=== PATIENT | male | born 1985 | race Caucasian/White ===

== ENCOUNTER → 2016-06-06 | Outpatient (CLI) | payer OTHER ==
[~2016-06-06] MED LIST: AMIO200T PO; AMIO400T5 PO; DIGO250T PO; DIGO250T15 PO; DILT120C54 PO; DILT240C86 PO; ENAL2.5T PO; ENLP2.5T PO; MTP50T PO; WARF2TAB PO; Warfarin Sod PO
--- OUTSIDE RECORDS SUMMARY | 2016-06-06 07:23 | XMS REPORT | Continuity of Care Document ---
Author Author [facility] Organization [facility] Address Unknown Phone Unavailable Care Team Providers Care Lead Generation Representative Name Role Phone Self, Referral PCP Unavailable Source Comments Some departments are not documenting in the electronic medical record. If you do not see the information that you expected, contact Release of Information in the Health Information Management department at [phone] for further assistance in locating additional records.[facility] Active Allergies and Adverse Reactions Allergen Noted Date Severity Reactions Comments Pcn 06/06/2011 RASH Current Medications Prescription Sig. Disp. Refills Start End Date Status Date enalapril (VASOTEC) 2.5 Take 2.5 mg by mouth Active mg tablet daily. metoprolol (LOPRESSOR) 50 Take 50 mg by mouth twice Active mg tablet daily. warfarin (COUMADIN) 2 mg Take 2 mg by mouth daily. Active tablet diltiazem CD (CARDIZEM Take 1 Cap by mouth 90 Cap 3 11/27/19 Active CD) 180 mg capsule daily. 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 Goldstein Atrial flutter ([facility]) 06/06/2011 Chronic headaches 06/06/2011 Atrial fibrillation ([facility]) 06/05/2011 Overview: 3-2011 Multiple runs of AF, up to a few hours duration by 45hr holter. 09/20/2013 - ECHO: LVEF ~ 25%. LA size=3.7 cm. Four chamber dilation with severe cardiomyopathy. LA dilation with no clot / thrombus, Severe TVR, mild MVR. Estimated PAP ~ 35mmHg. 09/21/2013 - Unsuccessful DCCV to maintain NSR. ([facility]) 11/13/2013 - CHIQUIS + DCCV: Cardioversion to restore NSR. ([facility]). Ventricular tachycardia (paroxysmal) (HCC) 06/05/2011 Overview: 05/19- 45Hr Holter: SR, Afib & VT. Ave HR 83bpm, ITO=207 & min 33bpm. One 2 sec pause. Wide beats: 641, 0.3%. Wide pairs: 2;wide runs:25. Longest VT up to 13 beats ( wide beats). Multiple episodes of Afib, up to a few hours duration per Dr Goldstein. 05/25/11 Ex Echo stress test ( Via [place], [place]) 10.1 METS, 93% of predicted MR reached. No significant arrhythmia or ischemia noted. EF 6-%, no abnormalities with stress. 2D echo: EF 60%. LA 3.4cm. RA, RV size normal. MIld MR & TR. AoV w/o stenosis or regurg. PAP est at 30mmHg. Social History Tobacco Use Types Packs/Day Years Used Date Never Smoker Alcohol Use Drinks/Week oz/Week Comments No Last Filed Vital Signs Vital Sign Reading Time Taken Blood Pressure 130/82 11/26/2013 1:19 PM CDT Pulse 68 11/26/2013 1:19 PM CDT Temperature - - Respiratory Rate - - Height 1.613 m (5' 3.5") 11/26/2013 1:19 PM CDT Weight 89.631 kg (197 lb 9.6 oz) 11/26/2013 1:19 PM CDT Body Mass Index 34.45 11/26/2013 1:19 PM CDT Oxygen Saturation 98% 10/28/2013 2:34 PM CDT Plan of Care Health Maintenance Due Date Last Done Comments Physical (Comprehensive) 1993 Exam Pertussis Vaccine 1997 Tetanus Vaccine 2003 Influenza Vaccine 11/18/2014 Results from Last 3 Months Not on file
--- NOTE | 2016-06-08 09:48 | ECHOCARDIOGRAPHY REPORT ---
PROCEDURE PHYSICIAN: CHINA MURPHY DATE OF PROCEDURE: 06/06/2016 TWO DIMENSIONAL ECHOCARDIOGRAM REPORT PRIMARY PHYSICIAN: OTHER PHYSICIAN: REFERRING PHYSICIAN: Winter Mayen APRN ORDERING PHYSICIAN: INDICATION FOR THE PROCEDURE: [facility]. MEASUREMENTS DERIVED VALUES LV DIAMETER (LAX) NORMALS NORMALS Diastolic 4.5 (3.6-5.2) Eject. Fract. 50% (60%+/-6%) Systolic (2.3-3.9) Diastolic Vol. % Shortening (0.22-0.42) Systolic Vol. Aortic Root IVS THICKNESS Diastolic 1 (0.6-1.1) LVPW THICKNESS Diastolic 1 (0.6-1.1) LA DIAMETER Systolic 4.8 (2.1-3.7) FINDINGS: 1. Technically difficult study. 2. The left ventricle is normal in size. Endocardium was not well visualized in all segments. Overall systolic function appeared to be normal. Estimated ejection fraction 50%. 3. The left atrium is dilated. No clot or thrombus were seen within the left atrium. 4. The right atrium and right ventricle are normal in size. No clot or thrombus were seen within the right side. 5. Mitral valve is normal in morphology with mild mitral regurgitation noted by color Doppler flow. No mitral valve prolapse. No mitral valve stenosis. 6. Aortic valve leaflets were not well visualized. No significant aortic stenosis or regurgitation was seen. 7. Tricuspid valve is normal in morphology with mild tricuspid regurgitation noted by color Doppler flow. Doppler across tricuspid valve estimated pulmonary artery pressure of 21+ right atrial pressure. 8. Pulmonic valve is functioning normally. 9. No pericardial effusion. IN CONCLUSION: 1. Normal left ventricular size. Endocardium was not well visualized in all segments. Estimated ejection fraction 50%. 2. Left atrium is dilated. 3. Mild mitral and tricuspid regurgitation. 4. Estimated pulmonary artery pressure 30 mmHg. Job ID: [id number] Dictated Date: 06/07/2016 16:09:36 Lithographic Photographer Apprentice Date: 06/08/2016 09:43:22 / lacy
== END ==
LOC: CARD 07:20
PROVIDERS: ATTEND Internal Medicine Cardiovascular Disease
DX: I48.91 Unspecified atrial fibrillation (principal)
CPT/HCPCS: 93306

== ENCOUNTER 2017-03-31 06:57 | Emergency (ER) | payer OTHER ==
[~2017-03-31] VITALS: Ht 162.6 cm; Wt 90.0 kg
[2017-03-31] MEDS ORDERED: CATHETER FLUSH 10 ML SYR IV ONE (07:01)
[2017-03-31] MEDS ORDERED: EPINEPHrine INJECTION 1 MG/ML AMP IV ONE (07:01)
[2017-03-31] MEDS ORDERED: SUCCINYLCHOLINE INJ 100 MG/5 ML SYR INJ ONE (07:01)
--- OUTSIDE RECORDS SUMMARY | 2017-03-31 07:04 | XMS REPORT ---
Author Author KAIR AMADOR Organization [employer] Address Unknown Phone Unavailable Care Team Providers Care Sheep Boner Name Role Phone KARI AMADOR CP Unavailable Allergies No Known Allergies Problems Problem Type Condition Code Onset Dates Condition Status Problem Cough 786.2 Active Problem Atrial fibrillation 427.31 Active Problem Esophageal reflux 530.81 Active Problem Abdominal pain, epigastric 789.06 Active Problem Abdominal pain, unspecified site 789.00 Active Problem Hypertension I10 Active Problem Palpitations 785.1 Active Problem Intestinal infection due to other organism, NEC 008.8 Active Problem Unspecified hypotension 458.9 Active Problem Congestive heart failure, unspecified 428.0 Active Assessment [facility] (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.01 Active Problem Influenza with other respiratory manifestations 487.1 Active Problem Encounter for long-term (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 V58.61 Active Problem Diarrhea 787.91 Active Medications No Known Medications Results No Known Results Summary Purpose [employer] Submission
--- OUTSIDE RECORDS SUMMARY | 2017-03-31 07:04 | XMS REPORT | Clinical Summary ---
Author Author [facility] Organization [facility] Address Unknown Phone Unavailable Care Team Providers Care Chemistry Quality Control Technician Name Role Phone PCP Unavailable Source Comments Some departments are not documenting in the electronic medical record. If you do not see the information that you expected, contact Release of Information in the Health Information Management department at [phone] for further assistance in locating additional records.[facility] Allergies Active Allergy Reactions Severity Noted Date Comments Penicillins RASH 06/06/2011 Current Medications Prescription Sig. Disp. 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 Goldstein Atrial flutter ([facility]) 06/06/2011 Chronic headaches 06/06/2011 Atrial fibrillation ([facility]) 06/05/2011 Overview: 3-2011 Multiple runs of AF, up to a few hours duration by 45hr holter. 09/20/2013 - ECHO: LVEF ~ 25%. LA size=3.7 cm. Four chamber dilation with severe cardiomyopathy. LA dilation with no clot / thrombus, Severe TVR, mild MVR. Estimated PAP ~ 35mmHg. 09/21/2013 - Unsuccessful DCCV to maintain NSR. ([facility]) 11/13/2013 - CHIQUIS + DCCV: Cardioversion to restore NSR. ([facility]). Ventricular tachycardia (paroxysmal) (HCC) 06/05/2011 Overview: 05/19- 45Hr Holter: SR, Afib & VT. Ave HR 83bpm, NBZ=123 & min 33bpm. One 2 sec pause. Wide beats: 641, 0.3%. Wide pairs: 2;wide runs:25. Longest VT up to 13 beats ( wide beats). Multiple episodes of Afib, up to a few hours duration per Dr Goldstein. 05/25/11 Ex Echo stress test ( Via [place], [place]) 10.1 METS, 93% of predicted MR reached. No significant arrhythmia or ischemia noted. EF 6-%, no abnormalities with stress. 2D echo: EF 60%. LA 3.4cm. RA, RV size normal. MIld MR & TR. AoV w/o stenosis or regurg. PAP est at 30mmHg. Family History Medical History Relation Name Comments Hypertension Father Relation Name Status Comments Father Alive Mother Alive Social History Tobacco Use Types Packs/Day Years Used Date Never Smoker Alcohol Use Drinks/Week oz/Week Comments No Sex Assigned at Date Recorded Not on file Last Filed Vital Signs Vital Sign Reading Time Taken Blood Pressure 130/82 11/26/2013 1:19 PM CDT Pulse 68 11/26/2013 1:19 PM CDT Temperature - - Respiratory Rate - - Oxygen Saturation 98% 10/28/2013 2:34 PM CDT Inhaled Oxygen - - Concentration Weight 89.6 kg (197 lb 9.6 oz) 11/26/2013 1:19 PM CDT Height 161.3 cm (5' 3.5") 11/26/2013 1:19 PM CDT Body Mass Index 34.45 11/26/2013 1:19 PM CDT Plan of Treatment Health Maintenance Due Date Last Done Comments PHYSICAL (COMPREHENSIVE) 1993 EXAM PERTUSSIS VACCINE 1997 TETANUS VACCINE 2003 INFLUENZA VACCINE 10/18/2016 Results Not on filefrom Last 3 Months
--- OUTSIDE RECORDS SUMMARY | 2017-03-31 07:04 | XMS REPORT ---
Author Author KARI AMADOR Organization [employer] Address Unknown Phone Unavailable Care Team Providers Care Copyright Manager Name Role Phone KARI AMADOR CP Unavailable Allergies No Known Allergies Problems Problem Type Condition ICD-9 Code Onset Dates Condition Status Problem Diarrhea 787.91 Active Problem Esophageal reflux 530.81 Active Problem Cough 786.2 Active Problem Abdominal pain, unspecified site 789.00 Active Problem Unspecified hypotension 458.9 Active Problem Abdominal pain, epigastric 789.06 Active Problem Intestinal infection due to other organism, NEC 008.8 Active Problem Atrial fibrillation 427.31 Active Problem Congestive heart failure, unspecified 428.0 Active Problem Palpitations 785.1 Active Assessment Encounter for long-term (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 V58.61 Active Problem Influenza with other respiratory manifestations 487.1 Active Problem Encounter for long-term (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 V58.61 Active Medications No Known Medications Procedures Procedure Coding System Code Date PROTHROMBIN TIME CPT-4 40492 Nov 06, 2014 Results Name Result Date Reference Range Unit Abnormality Flag INR (IN HOUSE) Summary Purpose [employer] Submission
--- OUTSIDE RECORDS SUMMARY | 2017-03-31 07:05 | XMS REPORT ---
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
--- OUTSIDE RECORDS SUMMARY | 2017-03-31 07:05 | XMS REPORT ---
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
--- OUTSIDE RECORDS SUMMARY | 2017-03-31 07:05 | XMS REPORT ---
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 diff Medical History Stress test performed; EF 25% Last test 2015 was at 60% Medical History Palpitations Hospitalization History [facility] for [facility]ib 09/2013
--- OUTSIDE RECORDS SUMMARY | 2017-03-31 07:05 | XMS REPORT ---
Author LINUS Bacon [facility] [employer] Address Unknown Phone Unavailable Care Team Providers Care Ordinary Seaman Name Role Phone LINUS BURGOS Unavailable Allergies, Adverse Reactions, Alerts Substance Reaction Event Type Penicillin V Potassium Info Not Available Drug Allergy Problems Problem Type Condition Code Onset Dates Condition Status Problem Diarrhea 787.91 Active Problem Esophageal reflux 530.81 Active Problem Cough 786.2 Active Problem Abdominal pain, unspecified site 789.00 Active Problem Unspecified hypotension 458.9 Active Problem Abdominal pain, epigastric 789.06 Active Problem Intestinal infection due to other organism, NEC 008.8 Active Problem Atrial fibrillation 427.31 Active Problem Congestive heart failure, unspecified 428.0 Active Problem Palpitations 785.1 Active Assessment Chest wall muscle strain S29.011A Active Problem Influenza with other respiratory manifestations 487.1 Active Problem Encounter for long-term (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 V58.61 Active Medications Medication Code System Code Instructions Start Date End Date Status Dosage Digox [facility] [address]-66 250 MCG Orally Once a day July 28, 2014 1 tablet Coumadin [facility] [address]-80 2 MG every day except Monday and Wednesday October 09, 2013 take 1 tablet (2 mg) by oral route once daily Cardizem CD [facility] [address]-43 240 MG Feb 10, 2014 take 1 capsule by Oral route 1 time per day Metoprolol Tartrate [facility] [address]-77 50 mg October 09, 2013 take 1 tablet (50 mg) by oral route 2 times per day with meals Enalapril Maleate [facility] [address]-75 2.5 mg Mar 21, 2014 take 1 tablet (2.5 mg) by oral route once daily Warfarin Sodium [facility] [address]-43 2 MG Orally Once a day 1 tablet Coumadin [facility] [address]-42 4 MG Orally Monday and Monday and 1 tablet the rest of the days. 2 tablet Cyclobenzaprine HCl [facility] [address]-10 10 MG Orally Three times a day DecJan 19, 2015 1 tablet Metronidazole [facility] [address]-15 500 mg Apr 20, 2012 1 tablet by Oral route 2 times per day for 14 days Procedures Procedure Coding System Code Date Office Visit, Est Pt., Level 3 CPT-4 03701 Dec 20, 2014 Vital Signs Date/Time: Dec 20, 2014 Temperature 96.5 F Weight 201.3 lbs Height 64 in BMI 34.55 Index Blood Pressure Diastolic 82 mmHg Blood Pressure Systolic 108 mmHg Cardiac Monitoring Heart Rate 96 bpm Results No Known Results Summary Purpose [employer]Works Submission
--- OUTSIDE RECORDS SUMMARY | 2017-03-31 07:05 | XMS REPORT ---
Author Author KARI AMADOR [facility] [employer] Address Unknown Phone Unavailable Care Team Providers Care Plastic Boat Patcher Name Role Phone KARI AMADOR CP Unavailable [...] Congestive heart failure, unspecified 428.0 Active Assessment Encounter for long-term (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 V58.61 Active Problem Influenza with other respiratory manifestations 487.1 Active Problem Encounter for long-term (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 V58.61 Active Problem Diarrhea 787.91 Active Medications Medication Code System Code Instructions Start Date End Date Status Dosage Warfarin Sodium [facility] [address]-34 3 MG Orally Once a day 1 tablet War[address] Sodium [facility] [address]-45 2 MG Orally Once a day 1 tablet M, W, F Results No Known Results Summary Purpose [employer] Submission
--- OUTSIDE RECORDS SUMMARY | 2017-03-31 07:05 | XMS REPORT ---
Author Author KARI AMADOR Organization [employer] Address Unknown Phone Unavailable Care Team Providers Care Table Setter Name Role Phone KARI AMAODR CP Unavailable Allergies No Known Allergies Problems [...] Congestive heart failure, unspecified 428.0 Active Assessment skilled nursing (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.01 Active Problem Influenza with other respiratory manifestations 487.1 Active Problem Encounter for long-term (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 V58.61 Active Assessment Encounter for therapeutic drug level monitoring Z51.81 Active Problem Diarrhea 787.91 Active Medications No Known Medications Procedures Procedure Coding System Code Date PROTHROMBIN TIME CPT-4 31609 Mar 24, 2015 Results Name Result Date Reference Range Unit Abnormality Flag INR (IN HOUSE) ----Exp date 20150324 ----INR 3.1 20150324 1.10 - 3.30 ----PREVIOUS INR 2.1 20150324 ----CURRENT COUMADIN DOSE 2mg M,W,F 4mg T,Th,Sat,Sun [id number] ----Lot # [id number] Summary Purpose [employer] Submission
--- OUTSIDE RECORDS SUMMARY | 2017-03-31 07:05 | XMS REPORT ---
Author Author KARI AMADOR Organization [employer] Address Unknown Phone Unavailable Care Team Providers Care Indigo Mixer Name Role Phone KARI AMADOR CP Unavailable [...] Congestive heart failure, unspecified 428.0 Active Problem Influenza with other respiratory manifestations 487.1 Active Problem Encounter for long-term (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 V58.61 Active Problem Diarrhea 787.91 Active Medications No Known Medications Results No Known Results Summary Purpose [employer] Submission
--- OUTSIDE RECORDS SUMMARY | 2017-03-31 07:05 | XMS REPORT ---
Author Author KARI AMADOR Organization [employer] Address Unknown Phone Unavailable Care Team Providers Care Hog Raiser Name Role Phone KARI AMADOR CP Unavailable [...] Congestive heart failure, unspecified 428.0 Active Assessment snf (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.01 Active Problem Influenza with other respiratory manifestations 487.1 Active Problem Encounter for long-term (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 V58.61 Active Problem Diarrhea 787.91 Active Medications No Known Medications Results No Known Results Summary Purpose [employer] Submission
--- OUTSIDE RECORDS SUMMARY | 2017-03-31 07:05 | XMS REPORT ---
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 diff Medical History Stress test performed; EF 25% Last test 2016 was at 60% Medical History Palpitations Hospitalization History [facility] for [facility]ib 09/2013
--- OUTSIDE RECORDS SUMMARY | 2017-03-31 07:05 | XMS REPORT ---
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 diff Medical History Stress test performed; EF 25% Last test 2015 was at 60% Medical History Palpitations Hospitalization History [facility] for Afib 09/2013
--- OUTSIDE RECORDS SUMMARY | 2017-03-31 07:05 | XMS REPORT ---
Author Author KARI AMADOR [facility] eClinicalWorks Address Unknown Phone Unavailable Care Team Providers Care Medical Pathologist Name Role Phone KARI AMADOR CP Unavailable [...]
--- OUTSIDE RECORDS SUMMARY | 2017-03-31 07:05 | XMS REPORT ---
Author Author KARI AMADOR [facility] [employer]Works Address Unknown Phone Unavailable Care Team Providers Care Offset Plate Maker Name Role Phone KARI AMADOR CP Unavailable [...]
--- OUTSIDE RECORDS SUMMARY | 2017-03-31 07:05 | XMS REPORT ---
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 diff Medical History Stress test performed; EF 25% Last test 2016 was at 60% Medical History Palpitations Hospitalization History [facility] for Afib 09/2013
--- OUTSIDE RECORDS SUMMARY | 2017-03-31 07:05 | XMS REPORT ---
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
--- OUTSIDE RECORDS SUMMARY | 2017-03-31 07:05 | XMS REPORT ---
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 diff Medical History Stress test performed; EF 25% Last test 2015 was at 60% Medical History Palpitations Hospitalization History [facility] for [facility]ib 09/2013
--- OUTSIDE RECORDS SUMMARY | 2017-03-31 07:06 | XMS REPORT ---
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
--- OUTSIDE RECORDS SUMMARY | 2017-03-31 07:06 | XMS REPORT ---
Author Author KARI AMADOR Organization [employer] Address Unknown Phone Unavailable Care Team Providers Care Engineering Scientist Name Role Phone KARI AMADOR CP Unavailable [...] Congestive heart failure, unspecified 428.0 Active Assessment senior care (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.01 Active Problem Influenza with other respiratory manifestations 487.1 Active Problem Encounter for long-term (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 V58.61 Active Problem Diarrhea 787.91 Active Medications No Known Medications Procedures Procedure Coding System Code Date PROTHROMBIN TIME CPT-4 26467 July 14, 2015 Results Name Result Date Reference Range Unit Abnormality Flag INR (IN HOUSE) ----Exp date [id number] ----INR 2.3 [id number] 1.10 - 3.30 ----PREVIOUS INR 2.6 20150714 ----CURRENT COUMADIN DOSE 2mgM,W,F 3mg TuThFSatSu [id number] ----Lot # [id number] Summary Purpose eClinicalWorks Submission
--- OUTSIDE RECORDS SUMMARY | 2017-03-31 07:06 | XMS REPORT ---
Author Author KARI AMADOR [facility] eClinicalWorks Address Unknown Phone Unavailable Care Team Providers Care Soda Jerker Name Role Phone KARI AMADOR Unavailable Allergies, Adverse Reactions, Alerts Substance Reaction Event Type Penicillin V Potassium Info Not Available Drug Allergy Problems Problem Type Condition ICD-9 Code Onset [...] 428.0 Active Problem Palpitations 785.1 Active Assessment Atrial fibrillation 427.31 Active Problem Influenza with other respiratory manifestations 487.1 Active Problem Encounter for long-term (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 V58.61 Active Medications Medication Code System Code Instructions Start Date End Date Status Dosage Enalapril Maleate [facility] [address]-52 2.5 mg Mar 21, 2014 take 1 tablet (2.5 mg) by oral route once daily Coumadin [facility] [address]-23 2 MG every day except Monday and Wednesday October 09, 2013 take 1 tablet (2 mg) by oral route once daily Cardizem CD [facility] [address]-63 240 MG Feb 10, 2014 take 1 capsule by Oral route 1 time per day Coumadin [facility] [address]-10 4 MG Orally Monday and Monday 1 tablet Metoprolol Tartrate [facility] [address]-78 50 mg October 09, 2013 take 1 tablet (50 mg) by oral route 2 times per day with meals Digox [facility] [address]-97 250 MCG Orally Once a day July 28, 2014 1 tablet Procedures Procedure Coding System Code Date Office Visit, Est Pt., Level 3 CPT-4 96310 Nov 27, 2014 Vital Signs Date/Time: Nov 27, 2014 Temperature 98.2 F Weight 198.2 lbs Height 64 in BMI 34.02 Index Blood Pressure Diastolic 76 mmHg Blood Pressure Systolic 118 mmHg Cardiac Monitoring Heart Rate 72 bpm Results No Known Results Summary Purpose eClinicalWorks Submission
--- OUTSIDE RECORDS SUMMARY | 2017-03-31 07:06 | XMS REPORT ---
Author Author CHINA MURPHY Organization eClinicalWorks Address Unknown Phone Unavailable Care Team Providers Care Recordist Chief Name Role Phone CHINA MURPHY CP Unavailable Allergies, Adverse Reactions, Alerts Substance Reaction [...] Date End Date Status Dosage Warfarin Sodium [facility] [address]-76 2 MG Orally Once a day 1 tablet T,W, TH, F, Sa, Sun Metoprolol Tartrate [facility] [address]-86 50 mg October 09, 2013 take 1 tablet (50 mg) by oral route 2 times per day with meals Digox [facility] [address]-37 250 MCG Orally Once a day July 28, 2014 1 tablet Cardizem CD [facility] [address]-57 240 MG Feb 10, 2014 take 1 capsule by Oral route 1 time per day Enalapril Maleate [facility] [address]-54 2.5 mg Mar 21, 2014 take 1 tablet (2.5 mg) by oral route once daily Coumadin [facility] [address]-01 4 MG TAKE TWO TABLETS BY MOUTH ON MONDAY AND MONDAY AND ONE TABLET ON ALL OTHER DAYS OF THE WEEK Procedures Procedure Coding System Code Date Office Visit, Est Pt., Level 4 CPT-4 77750 Feb 06, 2015 ELECTROCARDIOGRAM, TRACING CPT-4 28424 Feb 06, 2015 Vital Signs Date/Time: Feb 06, 2015 Temperature 98.6 F Weight 201.1 lbs Height 64 in BMI 34.51 Index Blood Pressure Diastolic 62 mmHg Blood Pressure Systolic 116 mmHg Cardiac Monitoring Heart Rate 74 bpm Results Name Result Date Reference Range Unit Abnormality Flag EKG, TRACING (IN-HOUSE) Summary Purpose eClinicalWorks Submission
--- OUTSIDE RECORDS SUMMARY | 2017-03-31 07:06 | XMS REPORT ---
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 70 Active RESULTS No Results PROCEDURES No Known procedures IMMUNIZATIONS No Known Immunizations MEDICAL (GENERAL) HISTORY Type Description Date Medical History Atrial fibrillation Medical History hx of c. diff Medical History Stress test performed; EF 25% Last test 2016 was at 60% Medical History Palpitations Hospitalization History [facility] for [facility]ib 09/2013
--- OUTSIDE RECORDS SUMMARY | 2017-03-31 07:06 | XMS REPORT ---
Author Author KARI AMADOR 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
--- OUTSIDE RECORDS SUMMARY | 2017-03-31 07:06 | XMS REPORT ---
Author Author KARI AMADOR Organization [employer] Address Unknown Phone Unavailable Care Team Providers Care Mold Presser Name Role Phone KARI AMADOR CP Unavailable [...] Congestive heart failure, unspecified 428.0 Active Assessment custodial (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.01 Active Problem Influenza with other respiratory manifestations 487.1 Active Problem Encounter for long-term (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 V58.61 Active Problem Diarrhea 787.91 Active Medications No Known Medications Results No Known Results Summary Purpose eClinicalWorks Submission
--- OUTSIDE RECORDS SUMMARY | 2017-03-31 07:06 | XMS REPORT ---
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
--- OUTSIDE RECORDS SUMMARY | 2017-03-31 07:06 | XMS REPORT ---
Author Author KARI AMADOR Organization eClinicalWorks Address Unknown Phone Unavailable Care Team Providers Care Health And Fitness Instructor Name Role Phone KARI AMADOR CP Unavailable [...] 785.1 Active Assessment Atrial fibrillation 427.31 Active Assessment Encounter for long-term (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 V58.61 Active Problem Influenza with other respiratory manifestations 487.1 Active Problem Encounter for long-term (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 V58.61 Active Medications No Known Medications Procedures Procedure Coding System Code Date PROTHROMBIN TIME CPT-4 99725 Jan 15, 2015 Results Name Result Date Reference Range Unit Abnormality Flag INR (IN HOUSE) Summary Purpose eClinicalWorks Submission
--- OUTSIDE RECORDS SUMMARY | 2017-03-31 07:06 | XMS REPORT ---
Author Author KARI AMADOR [facility] eClinicalWorks Address Unknown Phone Unavailable Care Team Providers Care Product Introduction Manager Name Role Phone KARI AMADOR CP [...] Medications Procedures Procedure Coding System Code Date VENIPUNCT, ROUTINE* CPT-4 15163 Mar 10, 2015 PROTHROMBIN TIME CPT-4 38391 Mar 10, 2015 Results Name Result Date Reference Range Unit Abnormality Flag ROUTINE VENIPUNCTURE Summary Purpose eClinicalWorks Submission
--- OUTSIDE RECORDS SUMMARY | 2017-03-31 07:06 | XMS REPORT ---
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
--- OUTSIDE RECORDS SUMMARY | 2017-03-31 07:06 | XMS REPORT ---
Author Author KARI AMADOR Organization eClinicalWorks Address Unknown Phone Unavailable Care Team Providers Care Appliance Painter And Refinisher Name Role Phone KARI AMADOR CP Unavailable [...] Coding System Code Date PROTHROMBIN TIME CPT-4 96349 Dec 09, 2014 Results No Known Results Summary Purpose eClinicalWorks Submission
--- OUTSIDE RECORDS SUMMARY | 2017-03-31 07:06 | XMS REPORT ---
Author Author KARI AMADOR Organization [employer] Address Unknown Phone Unavailable Care Team Providers Care Solid Waste Manager Name Role Phone KARI AMADOR CP [...] failure, unspecified 428.0 Active Assessment Encounter for therapeutic drug level monitoring Z51.81 Active Problem Influenza with other respiratory manifestations 487.1 Active Problem Encounter for long-term (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 V58.61 Active Problem Diarrhea 787.91 Active Medications No Known Medications Procedures Procedure Coding System Code Date VENIPUNCT, ROUTINE* CPT-4 34785 Mar 02, 2015 PROTHROMBIN TIME CPT-4 95006 Mar 02, 2015 Results Name Result Date Reference Range Unit Abnormality Flag ROUTINE VENIPUNCTURE PT/INR ----Prothrombin Time 14.5 [id number] 9.1-12.0 sec H ----INR 1.3 [id number] 0.8-1.2 H Summary Purpose eClinicalWorks Submission
--- OUTSIDE RECORDS SUMMARY | 2017-03-31 07:07 | XMS REPORT ---
Author Author KARI AMADOR Organization [employer] Address Unknown Phone Unavailable Care Team Providers Care Noodle Catalyst Maker Name Role Phone KARI AMADOR CP [...] Congestive heart failure, unspecified 428.0 Active Assessment nursing home (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.01 Active Problem Influenza with other respiratory manifestations 487.1 Active Problem Encounter for long-term (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 V58.61 Active Assessment Encounter for therapeutic drug level monitoring Z51.81 Active Problem Diarrhea 787.91 Active Medications No Known Medications Results No Known Results Summary Purpose eClinicalWorks Submission
--- OUTSIDE RECORDS SUMMARY | 2017-03-31 07:07 | XMS REPORT | Continuity of Care Document ---
Author Author [facility] [place] Address Unknown Phone Unavailable Allergies Active Description Code Type Severity Reaction Onset Reported/Identified Relationship to Patient Clinical Status Yes penicillin V potassium Drug Allergy 07/21/2010 Yes penicillin V potassium Drug Allergy N/A N/A 07/21/2010 Yes Penicillins [id number] Drug Allergy Unknown N/A 09/19/2013 Medications There is no data. Problems Date Dx Coded Attending Type Code Diagnosis Diagnosed By 07/21/2010 STEVE SANTANA, BROOK 486 PNEUMONIA UNSPECIFIED 07/21/2010 STEVE SANTANA, BROOK 486 PNEUMONIA UNSPECIFIED 07/21/2010 486 PNEUMONIA UNSPECIFIED 07/21/2010 ISABELLE FRANCIS DO 486 PNEUMONIA UNSPECIFIED 07/21/2010 SIDDHARTH SANTANA, CHERI N 486 PNEUMONIA UNSPECIFIED 07/21/2010 MADL CEMENT MASON MAINTENANCE, KARI L 486 PNEUMONIA UNSPECIFIED 07/21/2010 MADL CEMENT MASON MAINTENANCE, KARI L 486 PNEUMONIA UNSPECIFIED 07/21/2010 MADL CEMENT MASON MAINTENANCE, KARI L 486 PNEUMONIA UNSPECIFIED 07/21/2010 ISABELLE FRANCIS DO K 486 PNEUMONIA UNSPECIFIED 07/21/2010 JEFFREY SANTANA, CHINA 486 PNEUMONIA UNSPECIFIED 07/21/2010 MADL CEMENT MASON MAINTENANCE, KARI L 486 PNEUMONIA UNSPECIFIED 07/21/2010 MADL CEMENT MASON MAINTENANCE, KARI L 486 PNEUMONIA UNSPECIFIED 07/21/2010 MADL CEMENT MASON MAINTENANCE, KARI L 486 PNEUMONIA UNSPECIFIED 07/21/2010 MADL CEMENT MASON MAINTENANCE, KARI L 486 PNEUMONIA UNSPECIFIED 07/21/2010 MADL CEMENT MASON MAINTENANCE, KARI L 486 PNEUMONIA UNSPECIFIED 07/21/2010 JEFFREY SANTANA, [place] 486 PNEUMONIA UNSPECIFIED 07/21/2010 MADL CEMENT [employer]ON MAINTENANCE, KARI L 486 PNEUMONIA UNSPECIFIED 04/17/2011 Ot 787.03 VOMITING ALONE 04/17/2011 Ot 787.91 DIARRHEA 08/17/2011 Ot 427.31 ATRIAL FIBRILLATION 08/17/2011 Ot 785.1 PALPITATIONS 04/20/2012 BROOK WILSON MD 789.06 abdominal pain in the central upper belly (epigastric) 04/20/2012 BROOK WILSON MD 789.06 abdominal pain in the central upper belly (epigastric) 04/20/2012 789.06 abdominal pain in the central upper belly (epigastric) 04/20/2012 ISABELLE FRANCIS DO K 789.06 abdominal pain in the central upper belly (epigastric) 04/20/2012 CHERI MESSINA MD 789.06 abdominal pain in the central upper belly (epigastric) 04/20/2012 MARJORIE CEMENT MASON MAINTENANCE, KARI L 789.06 abdominal pain in the central upper belly (epigastric) 04/20/2012 MARJORIE CEMENT MASON MAINTENANCE, KARI L 789.06 abdominal pain in the central upper belly (epigastric) 04/20/2012 MARJORIE CEMENT MASON MAINTENANCE, KARI L 789.06 abdominal pain in the central upper belly (epigastric) 04/20/2012 ISABELLE FRANCIS DO K 789.06 abdominal pain in the central upper belly (epigastric) 04/20/2012 CHINA GOLDSTEIN MD 789.06 abdominal pain in the central upper belly (epigastric) 04/20/2012 MARJORIE HIGGINBOTHAM KARI L 789.06 abdominal pain in the central upper belly (epigastric) 04/20/2012 MARJORIE CEMENT MASON MAINTENANCE, KARI L 789.06 abdominal pain in the central upper belly (epigastric) 04/20/2012 MARJORIE HIGGINBOTHAM KARI L 789.06 abdominal pain in the central upper belly (epigastric) 04/20/2012 MARJORIE CEMENT MASON MAINTENANCE, KARI L 789.06 abdominal pain in the central upper belly (epigastric) 04/20/2012 MARJORIE HIGGINBOTHAM KARI L 789.06 abdominal pain in the central upper belly (epigastric) 04/20/2012 CHINA GOLDSTEIN MD 789.06 abdominal pain in the central upper belly (epigastric) 04/20/2012 MARJORIE HIGGINBOTHAM KARI L 789.06 abdominal pain in the central upper belly (epigastric) 05/10/2012 BROOK WILSON MD 427.31 ATRIAL FIBRILLATION 05/10/2012 BROOK WILSON MD 530.81 ESOPHAGEAL REFLUX 05/10/2012 BROOK WILSON MD 786.2 cough 05/10/2012 BROOK WILSON MD 787.91 diarrhea 05/10/2012 427.31 ATRIAL FIBRILLATION 05/10/2012 530.81 ESOPHAGEAL REFLUX 05/10/2012 786.2 cough 05/10/2012 787.91 diarrhea 05/10/2012 FRANCIS DO, ISABELLE K 427.31 ATRIAL FIBRILLATION 05/10/2012 FRANCIS DO, ISABELLE K 530.81 ESOPHAGEAL REFLUX 05/10/2012 FRANCIS DO, ISABELLE K 786.2 cough 05/10/2012 FRANCIS DO, ISABELLE K 787.91 diarrhea 05/10/2012 CHERI MESSINA MD N 427.31 ATRIAL FIBRILLATION 05/10/2012 CHERI MESSINA MD N 530.81 ESOPHAGEAL REFLUX 05/10/2012 CHERI MESSINA MD N 786.2 cough 05/10/2012 CHERI MESSINA MD N 787.91 diarrhea 05/10/2012 MADL CEMENT MASON MAINTENANCE, KARI L 427.31 ATRIAL FIBRILLATION 05/10/2012 MADL CEMENT MASON MAINTENANCE, KARI L 530.81 ESOPHAGEAL REFLUX 05/10/2012 MADL CEMENT MASON MAINTENANCE, KRAI L 786.2 cough 05/10/2012 MADL CEMENT MASON MAINTENANCE, KARI L 787.91 diarrhea 05/10/2012 MADL CEMENT MASON MAINTENANCE, KARI L 427.31 ATRIAL FIBRILLATION 05/10/2012 MADL CEMENT MASON MAINTENANCE, KARI L 530.81 ESOPHAGEAL REFLUX 05/10/2012 MADL CEMENT MASON MAINTENANCE, KARI L 786.2 cough 05/10/2012 MADL CEMENT MASON MAINTENANCE, KARI L 787.91 diarrhea 05/10/2012 MADL CEMENT MASON MAINTENANCE, KARI L 427.31 ATRIAL FIBRILLATION 05/10/2012 MADL CEMENT MASON MAINTENANCE, KARI L 530.81 ESOPHAGEAL REFLUX 05/10/2012 MADL CEMENT MASON MAINTENANCE, KARI L 786.2 cough 05/10/2012 MADL CEMENT MASON MAINTENANCE, KARI L 787.91 diarrhea 05/10/2012 FRANCIS DO, ISABELLE K 427.31 ATRIAL FIBRILLATION 05/10/2012 FRANCIS DO, ISABELLE K 530.81 ESOPHAGEAL REFLUX 05/10/2012 FRANCIS DO, ISABELLE K 786.2 cough 05/10/2012 FRANCIS DO, ISABELLE K 787.91 diarrhea 05/10/2012 JEFFREY SANTANA, CH[place] 427.31 ATRIAL FIBRILLATION 05/10/2012 JEFFREY SANTANA, BASHAR 530.81 ESOPHAGEAL REFLUX 05/10/2012 JEFFREY SANTANA, [place] 786.2 cough 05/10/2012 JEFFREY SANTANA, BASCHI 787.91 diarrhea 05/10/2012 MADL CEMENT MASON MAINTENANCE, KARI L 427.31 ATRIAL FIBRILLATION 05/10/2012 MADL CEMENT MASON MAINTENANCE, KARI L 530.81 ESOPHAGEAL REFLUX 05/10/2012 MADL CEMENT MASON MAINTENANCE, KARI L 786.2 cough 05/10/2012 MADL CEMENT MASON MAINTENANCE, KARI L 787.91 diarrhea 05/10/2012 MADL CEMENT MASON MAINTENANCE, KARI L 427.31 ATRIAL FIBRILLATION 05/10/2012 MADL CEMENT MASON MAINTENANCE, KARI L 530.81 ESOPHAGEAL REFLUX 05/10/2012 MADL CEMENT MASON MAINTENANCE, KARI L 786.2 cough 05/10/2012 MADL CEMENT MASON MAINTENANCE, KARI L 787.91 diarrhea 05/10/2012 MADL CEMENT MASON MAINTENANCE, KARI L 427.31 ATRIAL FIBRILLATION 05/10/2012 MADL CEMENT MASON MAINTENANCE, KARI L 530.81 ESOPHAGEAL REFLUX 05/10/2012 MADL CEMENT MASON MAINTENANCE, KARI L 786.2 cough 05/10/2012 MADL CEMENT MASON MAINTENANCE, KARI L 787.91 diarrhea 05/10/2012 MADL CEMENT MASON MAINTENANCE, KARI L 427.31 ATRIAL FIBRILLATION 05/10/2012 MADL CEMENT MASON MAINTENANCE, KARI L 530.81 ESOPHAGEAL REFLUX 05/10/2012 MADL CEMENT MASON MAINTENANCE, KARI L 786.2 cough 05/10/2012 MADL CEMENT MASON MAINTENANCE, KARI L 787.91 diarrhea 05/10/2012 MADL CEMENT MASON MAINTENANCE, KARI L 427.31 ATRIAL FIBRILLATION 05/10/2012 MADL CEMENT MASON MAINTENANCE, KARI L 530.81 ESOPHAGEAL REFLUX 05/10/2012 MADL CEMENT MASON MAINTENANCE, KARI L 786.2 cough 05/10/2012 MADL CEMENT MASON MAINTENANCE, KARI L 787.91 diarrhea 05/10/2012 JEFFREYCHINA UGALDE MD 427.31 ATRIAL FIBRILLATION 05/10/2012 CHINA GOLDSTEIN MD 530.81 ESOPHAGEAL REFLUX 05/10/2012 CHINA GOLDSTEIN MD 786.2 cough 05/10/2012 CHINA GOLDSTEIN MD 787.91 diarrhea 05/10/2012 MADL CEMENT MASON MAINTENANCE, KARI L 427.31 ATRIAL FIBRILLATION 05/10/2012 MADL CEMENT MASON MAINTENANCE, KARI L 530.81 ESOPHAGEAL REFLUX 05/10/2012 MADL CEMENT MASON MAINTENANCE, KARI L 786.2 cough 05/10/2012 MADL CEMENT MASON MAINTENANCE, KARI L 787.91 diarrhea 07/31/2012 008.8 GASTROENTERITIS, VIRAL 07/31/2012 ISABELLE FRANCIS DO K 008.8 GASTROENTERITIS, VIRAL 07/31/2012 CHERI MESSINA MD 008.8 GASTROENTERITIS, VIRAL 07/31/2012 MADL CEMENT MASON MAINTENANCE, KARI L 008.8 GASTROENTERITIS, VIRAL 07/31/2012 MADL CEMENT MASON MAINTENANCE, KARI L 008.8 GASTROENTERITIS, VIRAL 07/31/2012 MADL CEMENT MASON MAINTENANCE, KARI L 008.8 GASTROENTERITIS, VIRAL 07/31/2012 ISABELLE FRANCIS DO K 008.8 GASTROENTERITIS, VIRAL 07/31/2012 CHINA GOLDSTEIN MD 008.8 GASTROENTERITIS, VIRAL 07/31/2012 MADL CEMENT MASON MAINTENANCE, KARI L 008.8 GASTROENTERITIS, VIRAL 07/31/2012 MADL CEMENT MASON MAINTENANCE, KARI L 008.8 GASTROENTERITIS, VIRAL 07/31/2012 MADL CEMENT MASON MAINTENANCE, KARI L 008.8 GASTROENTERITIS, VIRAL 07/31/2012 MADL CEMENT MASON MAINTENANCE, KARI L 008.8 GASTROENTERITIS, VIRAL 07/31/2012 MADL CEMENT MASON MAINTENANCE, KARI L 008.8 GASTROENTERITIS, VIRAL 07/31/2012 CHINA GOLDSTEIN MD 008.8 GASTROENTERITIS, VIRAL 07/31/2012 MADL CEMENT MASON MAINTENANCE, KARI L 008.8 GASTROENTERITIS, VIRAL 03/16/2013 ISABELLE FRANCIS DO K 487.1 INFLUENZA WITH OTHER RESPIRATORY MANIFESTATIONS 03/16/2013 CHERI MESSINA MD 487.1 INFLUENZA WITH OTHER RESPIRATORY MANIFESTATIONS 03/16/2013 ZAIRAL CEMENT MASON MAINTENANCE, KARI L 487.1 INFLUENZA WITH OTHER RESPIRATORY MANIFESTATIONS 03/16/2013 MARJORIE CEMENT MASON MAINTENANCE, KARI L 487.1 INFLUENZA WITH OTHER RESPIRATORY MANIFESTATIONS 03/16/2013 MADL CEMENT MASON MAINTENANCE, KARI L 487.1 INFLUENZA WITH OTHER RESPIRATORY MANIFESTATIONS 03/16/2013 ISABELLE FRANCIS DO K 487.1 INFLUENZA WITH OTHER RESPIRATORY MANIFESTATIONS 03/16/2013 CHINA GOLDSTEIN MD 487.1 INFLUENZA WITH OTHER RESPIRATORY MANIFESTATIONS 03/16/2013 MADL CEMENT MASON MAINTENANCE, KARI L 487.1 INFLUENZA WITH OTHER RESPIRATORY MANIFESTATIONS 03/16/2013 MADL CEMENT MASON MAINTENANCE, KARI L 487.1 INFLUENZA WITH OTHER RESPIRATORY MANIFESTATIONS 03/16/2013 MADL CEMENT MASON MAINTENANCE, KARI L 487.1 INFLUENZA WITH OTHER RESPIRATORY MANIFESTATIONS 03/16/2013 MADL CEMENT MASON MAINTENANCE, KARI L 487.1 INFLUENZA WITH OTHER RESPIRATORY MANIFESTATIONS 03/16/2013 MADL CEMENT MASON MAINTENANCE, KARI L 487.1 INFLUENZA WITH OTHER RESPIRATORY MANIFESTATIONS 03/16/2013 JEFFREY SANTANA, CH[place] 487.1 INFLUENZA WITH OTHER RESPIRATORY MANIFESTATIONS 03/16/2013 MADL CEMENT MASON MAINTENANCE, KARI L 487.1 INFLUENZA WITH OTHER RESPIRATORY MANIFESTATIONS 09/19/2013 SIDDHARTH SANTANA, CHERI N 789.00 ABDOMINAL PAIN UNSPECIFIED SITE 09/19/2013 MADL CEMENT MASON MAINTENANCE, KARI L 789.00 ABDOMINAL PAIN UNSPECIFIED SITE 09/19/2013 MADL CEMENT MASON MAINTENANCE, KARI L 789.00 ABDOMINAL PAIN UNSPECIFIED SITE 09/19/2013 MADL CEMENT MASON MAINTENANCE, KARI L 789.00 ABDOMINAL PAIN UNSPECIFIED SITE 09/19/2013 ISABELLE FRANCIS DO K 789.00 ABDOMINAL PAIN UNSPECIFIED SITE 09/19/2013 CHINA GOLDSTEIN MD 789.00 ABDOMINAL PAIN UNSPECIFIED SITE 09/19/2013 MADL CEMENT MASON MAINTENANCE, KARI L 789.00 ABDOMINAL PAIN UNSPECIFIED SITE 09/19/2013 MADL CEMENT MASON MAINTENANCE, KARI L 789.00 ABDOMINAL PAIN UNSPECIFIED SITE 09/19/2013 MADL CEMENT MASON MAINTENANCE, KARI L 789.00 ABDOMINAL PAIN UNSPECIFIED SITE 09/19/2013 MADL CEMENT MASON MAINTENANCE, KARI L 789.00 ABDOMINAL PAIN UNSPECIFIED SITE 09/19/2013 MADL CEMENT MASON MAINTENANCE, KARI L 789.00 ABDOMINAL PAIN UNSPECIFIED SITE 09/19/2013 CHINA GOLDSTEIN MD 789.00 ABDOMINAL PAIN UNSPECIFIED SITE 09/19/2013 KARI AMADOR APRN L 789.00 ABDOMINAL PAIN UNSPECIFIED SITE 09/25/2013 CHINA GOLDSTEIN MD Ot 425.4 PRIM CARDIOMYOPATHY NEC 09/25/2013 CHINA GOLDSTEIN MD Ot 427.31 ATRIAL FIBRILLATION 09/25/2013 CHINA GOLDSTEIN MD Ot 428.0 CONGESTIVE HEART FAILURE NOS 09/25/2013 CHINA GOLDSTEIN MD Ot 428.21 ACUTE SYSTOLIC HEART FAILURE 09/25/2013 CHINA GOLDSTEIN MD Ot 458.29 OTHER IATROGENIC HYPOTENSION 09/25/2013 CHINA GOLDSTEIN MD Ot 785.0 TACHYCARDIA NOS 09/25/2013 CHINA GOLDSTEIN MD, Ot E942.9 ADV EFF CARDIOVASC NEC 10/09/2013 VAMSI AMADOR APRNNYA L V58.61 LONG-TERM (CURRENT) USE OF ANTICOAGULANTS 10/09/2013 ZAIRAL CEMENT MASON MAINTENANCECHIP HenningKARI L V58.61 LONG-TERM (CURRENT) USE OF ANTICOAGULANTS 10/09/2013 MARJORIE CEMENT MASON MAINTENANCE, KARI L V58.61 LONG-TERM (CURRENT) USE OF ANTICOAGULANTS 10/09/2013 ISABELLE FRANCIS DO V58.61 LONG-TERM (CURRENT) USE OF ANTICOAGULANTS 10/09/2013 CHINA GOLDSTEIN MD V58.61 LONG-TERM (CURRENT) USE OF ANTICOAGULANTS 10/09/2013 MARJORIE CEMENT MASON MAINTENANCEVAMSI HenningNYA L V58.61 LONG-TERM (CURRENT) USE OF ANTICOAGULANTS 10/09/2013 ZAIRAL CEMENT MASON MAINTENANCE, KARI L V58.61 LONG-TERM (CURRENT) USE OF ANTICOAGULANTS 10/09/2013 MARJORIE CEMENT MASON MAINTENANCE, KARI L V58.61 LONG-TERM (CURRENT) USE OF ANTICOAGULANTS 10/09/2013 MARJORIE CEMENT MASON MAINTENANCE, KARI L V58.61 LONG-TERM (CURRENT) USE OF ANTICOAGULANTS 10/09/2013 VAMSI AMADOR APRNNYA L V58.61 LONG-TERM (CURRENT) USE OF ANTICOAGULANTS 10/09/2013 CHINA GOLDSTEIN MD V58.61 LONG-TERM (CURRENT) USE OF ANTICOAGULANTS 10/09/2013 MARJORIE CEMENT MASON MAINTENANCEVAMSI HenningNYA L V58.61 LONG-TERM (CURRENT) USE OF ANTICOAGULANTS 11/14/2013 CHINA GOLDSTEIN MD Ot 278.00 OBESITY, NOS 11/14/2013 CHINA GOLDSTEIN MD Ot 401.9 HYPERTENSION NOS 11/14/2013 CHINA GOLDSTEIN MD Ot 427.31 ATRIAL FIBRILLATION 11/14/2013 CHINA GOLDSTEIN MD Ot 428.0 CONGESTIVE HEART FAILURE NOS 11/14/2013 CHINA GOLDSTEIN MD Ot 428.22 CHRONIC SYSTOLIC HRT FAILURE 11/14/2013 CHIAN GOLDSTEIN MD Ot 785.0 TACHYCARDIA NOS 11/14/2013 CHINA GOLDSTEIN MD Ot V58.61 ANTICOAGULANTS,LT,CURRENT USE 11/14/2013 CHINA GOLDSTEIN MD Ot V58.69 OTH MED,LT,CURRENT USE 11/14/2013 CHINA GOLDSTEIN MD Ot V85.34 BODY MASS INDEX 34.0-34.9, ADULT 03/19/2014 Ot 397.0 03/19/2014 Ot 424.0 03/19/2014 Ot 427.1 03/19/2014 Ot 427.31 03/19/2014 Ot 785.1 03/19/2014 Ot 397.0 03/19/2014 Ot 424.0 03/19/2014 Ot 427.1 03/19/2014 Ot 427.31 03/19/2014 Ot 785.1 04/29/2014 CHINA GOLDSTEIN MD 428.0 CONGESTIVE HEART FAILURE UNSPECIFIED 04/29/2014 CHINA GOLDSTEIN MD 458.9 HYPOTENSION UNSPECIFIED 04/29/2014 CHINA GOLDSTEIN MD 785.1 PALPITATIONS 04/29/2014 MADL CEMENT MASON MAINTENANCE, KARI L 428.0 CONGESTIVE HEART FAILURE UNSPECIFIED 04/29/2014 MADL CEMENT MASON MAINTENANCE, KARI L 458.9 HYPOTENSION UNSPECIFIED 04/29/2014 MADL CEMENT MASON MAINTENANCE, KARI L 785.1 PALPITATIONS 02/10/2015 MARK MAXWELL Ot 427.31 02/10/2015 MARK MAXWELL Ot 428.0 02/10/2015 MARK MAXWELL Ot 458.9 02/10/2015 MARK MAXWELL Ot 785.1 03/18/2015 MARK MAXWELL Ot 427.31 03/18/2015 ALLIE MAXWELLDITH K Ot 428.0 03/18/2015 MELONY MAXWELLTH Jesus Ot 458.9 03/18/2015 MARK MAXWELL Ot 785.1 09/14/2015 NATE FRANCOISMARK Ot 427.31 ATRIAL FIBRILLATION 09/14/2015 NATE FRANCOISMARK K Ot 428.0 CONGESTIVE HEART FAILURE NOS 09/14/2015 NATE FRANCOISMELONYTH K Ot 458.9 HYPOTENSION NOS 09/14/2015 NATE FRANCOIS, MARK K Ot 785.1 PALPITATIONS 09/14/2015 CHINA GOLDSTEIN MD Ot I07.1 RHEUMATIC TRICUSPID INSUFFICIENCY 09/14/2015 CHINA GOLDSTEIN MD Ot I10 ESSENTIAL (PRIMARY) HYPERTENSION 09/14/2015 CHINA GOLDSTEIN MD Ot I48.91 UNSPECIFIED ATRIAL FIBRILLATION 09/14/2015 CHINA GOLDSTEIN MD Ot I50.9 HEART FAILURE, UNSPECIFIED 01/27/2016 Ot 397.0 TRICUSPID VALVE DISEASE 01/27/2016 Ot 424.0 MITRAL VALVE DISORDER 01/27/2016 Ot 427.1 PAROX VENTRIC TACHYCARD 01/27/2016 Ot 427.31 ATRIAL FIBRILLATION 01/27/2016 Ot 785.1 PALPITATIONS 01/28/2016 Ot 397.0 TRICUSPID VALVE DISEASE 01/28/2016 Ot 424.0 MITRAL VALVE DISORDER 01/28/2016 Ot 427.1 PAROX VENTRIC TACHYCARD 01/28/2016 Ot 427.31 ATRIAL FIBRILLATION 01/28/2016 Ot 785.1 PALPITATIONS 05/31/2016 DOTSONSRI PARRISH MARK K Ot 427.31 ATRIAL FIBRILLATION 05/31/2016 DOTSON-KINGA PARRISHMARK Ot 428.0 CONGESTIVE HEART FAILURE NOS 05/31/2016 DOTSONGEORGIANA FRANCOISMELONYTH K Ot 458.9 HYPOTENSION NOS 05/31/2016 DOTSON-KINGA PARRISHMARK K Ot 785.1 PALPITATIONS 05/31/2016 CHINA GOLDSTEIN MD Ot I07.1 RHEUMATIC TRICUSPID INSUFFICIENCY 05/31/2016 CHINA GOLDSTEIN MD Ot I10 ESSENTIAL (PRIMARY) HYPERTENSION 05/31/2016 CHINA GOLDSTEIN MD Ot I48.91 UNSPECIFIED ATRIAL FIBRILLATION 05/31/2016 CHINA GOLDSTEIN MD Ot I50.9 HEART FAILURE, UNSPECIFIED 06/06/2016 DOTSONKINGA PARRISH, MARK K Ot 427.31 ATRIAL FIBRILLATION 06/06/2016 DOTSONKINGA PARRISH, MARK K Ot 428.0 CONGESTIVE HEART FAILURE NOS 06/06/2016 DOTSONKINGA PA, MARK K Ot 458.9 HYPOTENSION NOS 06/06/2016 [facility] MARK K Ot 785.1 PALPITATIONS 06/06/2016 CHINA GOLDSTEIN MD Ot I07.1 RHEUMATIC TRICUSPID INSUFFICIENCY 06/06/2016 CHINA GOLDSTEIN MD Ot I10 ESSENTIAL (PRIMARY) HYPERTENSION 06/06/2016 CHINA GOLDSTEIN MD Ot I48.91 UNSPECIFIED ATRIAL FIBRILLATION 06/06/2016 CHINA GOLDSTEIN MD Ot I50.9 HEART FAILURE, UNSPECIFIED 06/06/2016 DOTSONKINGA FRANCOIS, MARK K Ot 427.31 ATRIAL FIBRILLATION 06/06/2016 [facility]AN[facility], MARK K Ot 428.0 CONGESTIVE HEART FAILURE NOS 06/06/2016 [facility]AN[facility], MARK K Ot 458.9 HYPOTENSION NOS 06/06/2016 DOTSONKINGA FRANCOIS, MARK K Ot 785.1 PALPITATIONS 06/06/2016 CHINA GOLDSTEIN MD Ot I07.1 RHEUMATIC TRICUSPID INSUFFICIENCY 06/06/2016 CHINA GOLDSTEIN MD Ot I10 ESSENTIAL (PRIMARY) HYPERTENSION 06/06/2016 CHINA GOLDSTEIN MD Ot I48.91 UNSPECIFIED ATRIAL FIBRILLATION 06/06/2016 CHINA GOLDSTEIN MD Ot I50.9 HEART FAILURE, UNSPECIFIED 06/06/2016 CHINA GOLDSTEIN MD Ot I48.91 UNSPECIFIED ATRIAL FIBRILLATION 06/07/2016 CHINA GOLDSTEIN MD Ot I48.91 UNSPECIFIED ATRIAL FIBRILLATION 06/09/2016 CHINA GOLDSTEIN MD Ot I48.91 UNSPECIFIED ATRIAL FIBRILLATION 07/20/2016 CHINA GOLDSTEIN MD Ot I48.91 UNSPECIFIED ATRIAL FIBRILLATION Procedures Code Description [place] [address] ROUTINE VENIPUNCTURE 04/20/2012 22614 H PYLORI (IN-HOUSE) 04/20/2012 52265 CMP 04/20/2012 5519089 GFR CALC (RESULT ONLY) 04/20/2012 09621 CBC 04/20/2012 91058 LIPASE 04/21/2012 90749 INFLUENZA A & B (IN-HOUSE) 03/16/2013 81208 EKG, TRACING (IN-HOUSE) 09/19/2013 99.61 ATRIAL CARDIOVERSION 09/21/2013 22487 ROUTINE VENIPUNCTURE 10/09/2013 39376 INR (IN HOUSE) 10/09/2013 3460542 GFR CALC (RESULT ONLY) 10/09/2013 63357 MAGNESIUM 10/09/2013 68341 CMP 10/09/2013 64918 ROUTINE VENIPUNCTURE 10/17/2013 Cardiolog [place] Goldstein 10/17/2013 20037 PT/INR 10/17/2013 30433 INR (IN HOUSE) 02/17/2014 16133 INR (IN HOUSE) 03/01/2014 50331 INR (IN HOUSE) 04/01/2014 05298 INR (IN HOUSE) 07/09/2014 06764 ROUTINE VENIPUNCTURE 07/09/2014 Results There is no data. Encounters ACCT No. Visit Date/Time Discharge Status Pt. Type Provider Facility Loc./Unit Complaint [id number] 07/09/2014 16:43:00 07/09/2014 23:59:59 CLS Outpatient MADL CEMENT MASON MAINTENANCE, KARI L [id number] 06/19/2014 16:53:00 06/19/2014 23:59:59 CLS Outpatient CHINA GOLDSTEIN MD [id number] 04/17/2014 16:42:00 04/17/2014 23:59:59 CLS Outpatient MADL C[employer] MAINTENANCE, KARI L [id number] 04/01/2014 17:00:00 04/01/2014 23:59:59 CLS Outpatient MADL C[employer]ON MAINTENANCE, KARI L [id number] 03/01/2014 09:52:00 03/01/2014 23:59:59 CLS Outpatient MADL CEMENT [employer]ON MAINTENANCE, KARI L [id number] 02/17/2014 16:54:00 02/17/2014 23:59:59 CLS Outpatient MADL C[employer]ON MAINTENANCE, KARI L [id number] 02/10/2014 15:18:00 02/10/2014 23:59:59 CLS Outpatient MADL CEMENT [employer]ON MAINTENANCE, KARI L [id number] 01/24/2014 16:35:00 01/24/2014 23:59:59 CLS Outpatient MADL C[employer]ON MAINTENANCE, KARI L [id number] 01/15/2014 00:00:00 01/15/2014 23:59:59 CLS Outpatient CHINA GOLDSTEIN MD [id number] 12/19/2013 15:47:00 12/19/2013 23:59:59 CLS Outpatient ISABELLE FRANCIS DO Jesus [id number] 11/08/2013 15:03:00 11/08/2013 23:59:59 CLS Outpatient MADL CEMENT MASON MAINTENANCEKARI Henning L [id number] 10/17/2013 15:03:00 10/17/2013 23:59:59 CLS Outpatient MADL CEMENT MASON MAINTENANCEKRAI L [id number] 10/09/2013 10:47:00 10/09/2013 23:59:59 CLS Outpatient MADL CEMENT MASON MAINTENANCEKARI Henning L [id number] 09/19/2013 15:59:00 09/19/2013 23:59:59 CLS Outpatient CHERI MESSINA MD [id number] 03/16/2013 09:41:00 03/16/2013 23:59:59 CLS Outpatient MARY FRANCIS DOCameron Lee [id number] 05/10/2012 14:53:00 05/10/2012 23:59:59 CLS Outpatient BROOK WILSON MD [id number] 04/20/2012 11:21:00 04/20/2012 23:59:59 CLS Outpatient BROOK WILSON MD [id number] 07/31/2012 17:07:00 Document Registration [id number] 06/06/2016 07:20:00 06/06/2016 23:59:59 CLS Outpatient CHINA GOLDSTEIN MD [facility] [address] CARD AFIB [id number] 03/16/2015 09:33:00 03/16/2015 23:59:59 CLS Outpatient CHINA GOLDSTEIN MD [facility] [address] CARD A-FIB,HTN [id number] 11/13/2013 08:42:00 11/14/2013 09:00:00 DIS Outpatient CHINA GOLDSTEIN MD [facility] [address] CATH AFIB,CHF,PALPITATIONS [id number] 10/01/2013 15:31:00 10/01/2013 23:59:59 CLS Outpatient MARK MAXWELL [facility] [address] LAB CHF, RVR.PALPATATIONS [id number] 09/19/2013 18:30:00 09/25/2013 19:18:00 DIS Inpatient JEFFREY SANTANA, CHINA Huang [facility] AFIB [id number] 05/25/2011 08:32:00 Document Registration [id number] 05/19/2011 10:47:00 Document Registration [id number] 04/17/2011 18:21:00 Document Registration
--- OUTSIDE RECORDS SUMMARY | 2017-03-31 07:07 | XMS REPORT ---
Author Author KARI AMADOR [facility] Address [address] [place] [address] Care Team Providers Care Shop Director Name Role Phone KARI AMADOR Unavailable PROBLEMS Type Condition ICD9-CM Code [id number] Code Onset Dates Condition Status SNOMED Code Problem 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 I48.2 Active 412736554 Problem USP (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.01 Active 928225200 Assessment USP (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.01 Feb, Active 235040248 Problem Cardiomyopathy I42.9 Active 60575857 Problem Hypertension I10 Active 23292187 ALLERGIES Unknown Allergies SOCIAL HISTORY No smoking Hx information available PLAN OF CARE VITAL SIGNS MEDICATIONS Unknown Medications RESULTS No Results PROCEDURES Procedure Date Ordered Related Diagnosis Body Site PROTHROMBIN TIME Feb 22, 2016 IMMUNIZATIONS No Known Immunizations
[2017-03-31] MEDS ORDERED: DOPamine DRIP 250 ML IV ONE (07:11)
[2017-03-31 07:48] LABS: BASOPHILS # (AUTO) 0.1 10^3/uL (0.0-0.1); BASOPHILS % (AUTO) 1 % (0-10); EOSINOPHILS # (AUTO) 0.2 10^3/uL (0.0-0.3); EOSINOPHILS % (AUTO) 2 % (0-10); HEMATOCRIT 47 % (40-54); LYMPHOCYTES # (AUTO) 6.5 X 10^3 (1.0-4.0); LYMPHOCYTES % (AUTO) 56 % (12-44); MEAN CORPUSCULAR HEMOGLOBIN 29 PG (25-34); MEAN CORPUSCULAR HGB CONC 34 G/DL (32-36); MEAN CORPUSCULAR VOLUME 85 FL (80-99); MEAN PLATELET VOLUME 11.7 FL (7.4-10.4); MONOCYTES # (AUTO) 0.4 X 10^3 (0.0-1.0); MONOCYTES % (AUTO) 3 % (0-12); NEUTROPHILS # (AUTO) 4.5 X 10^3 (1.8-7.8); NEUTROPHILS % (AUTO) 39 % (42-75); PLATELET COUNT 258 10^3/uL (130-400); RED BLOOD COUNT 5.54 10^6/uL (4.35-5.85); RED CELL DISTRIBUTION WIDTH 13.6 % (10.0-14.5); WHITE BLOOD COUNT 11.6 10^3/uL (4.3-11.0)
--- NOTE | 2017-03-31 07:48 | Progress Note-Standard ---
Standard Progress Note Progress Notes/Assess & Plan Time Seen by Provider: 07:30 Final Diagnosis Consulted for a difficult intubation. Multiple unsuccessful attempts per EMS and ED. Pt unresponsive, with a bloody mouth. RT at head of bed, mask/bag ventilating upon arrival. Report from ED physician. Sux 60 mg IV followed by placement of 7.0 ETT x1 attempt. Positive ETCO2, katherine chest rise and breath sounds per RT. Report given to ED physician, care assumed. HIMANSHU RUSSELL CRNA Mar 31, 2017 07:47
[2017-03-31 07:50] VITALS: BP 116/72
[2017-03-31 07:51] LABS: PROTHROMBIN TIME PATIENT 22.4 SEC (12.2-14.7)
--- NOTE | 2017-03-31 07:53 | ED CPR ---
HPI-CPR General Stated Complaint: ASYSTOLIC Source of Information: EMS, Family Exam Limitations: Other (unconscious/unresponsive) History of Present Illness Time Seen by Provider: 07:48 Initial Comments The patient is a 32-year-old white male brought by EMS with CPR being administered at 0700. Apparently he arose at the alarm at 0600 and took his medicine as is his habit. His family then states that it was his habit to go and lie on the couch for a bit which he did. At some time between 09 01 and 09 16 a heart a loud groaning noise and went to check on him. He was not responsive and CPR was initiated by family. The EMS received a call at 0640 and arrived at 0644. They found him to appear to be in V. tach and administered shock at which point he became asystolic. Compressions were administered. Attempts were made and IVs and a endotracheal tube was placed. They arrived here at approximately 0700. IV access was achieved. It appeared that the ET tube was not appropriately placed. It was removed and bagging continued. Chest compressions also continued and he was given epinephrine 2. After the second epinephrine a rhythm was reestablished which was atrial fibrillation at a rate of approximately 150. ET tube was replaced by anesthesia. The patient exhibited spontaneous respirations. His pupils which initially had been quite dilated had returned to a more normal state. The patient was discussed by Dr. Ruiz who is on cardiology call. He offered that the patient given the history as supplied by me should be transferred to a higher Center for hypothermia therapy. Efforts were initiated first at 0753 to [facility]. I was informed they were on ICU diversion. Subsequently at 0755 I spoke to [facility]orie Monzon, they too were ICU diversion. Subsequently at 0800 I spoke to [facility]. The [employer] helicopter service has been put on standby. It is now 0817 I am replacing called to [facility]. Witnessed Arrest: No Bystander CPR: Yes Down-Time Before ACLS: 15-min Paramedics Initial Findings: Asystole, No Pulse, No Respirations, Unresponsive Pre Hospital Treatment: Bag Valve Mask, Intubation, Oxygen Allergies and Home Medications Allergies Coded Allergies: Penicillins (Verified Allergy, Unknown, 09/19/13) Home Medications Amiodarone HCl 200 Mg Tablet, 400 MG PO DAILY, (Reported) TAKES 2 (200MG) TABLETS Diltiazem Hcl 120 Mg Cap.sr.24h, 120 MG PO DAILY, (Reported) Enalapril Maleate 2.5 Mg Tablet, 2.5 MG PO DAILY, (Reported) Metoprolol Tartrate 50 Mg Tablet, 50 MG PO BID, (Reported) [Warfarin Sod] 2 MG TAB, 0 MG PO DAILY@1800, #30 Prescribed by: CHINA MURPHY on 11/14/13 0806 Review of Systems Constitutional: see HPI Respiratory: No Symptoms Reported, See HPI Cardiovascular: No Symptoms Reported, See HPI Gastrointestinal: No Symptoms Reported, See HPI Genitourinary: No Symptoms Reported, See HPI Psychiatric/Neurological: No Symptoms Reported, See HPI Endocrine: No Symptoms Reported, See HPI Hematologic/Lymphatic: No Symptoms Reported, See HPI Past Xlgyhpv-Hepmla-Iitsmc Hx Patient Social History Recent Foreign Travel: No Contact w/Someone Who Travel: No Immunizations Up To Date Tetanus Booster (TDap): More than 5yrs Reproductive System Hx Reproductive Disorders: No Integumentary Skin/Integumentary Disorders: Herpes Blood Transfusions Adverse Reaction to a Blood Tr: No Family Medical History Family Medial History: Family history: Arthritis 19 FATHER (rhumatoid arthrtis) 19 MOTHER Family history: Asthma 19 MOTHER Family history: Hypertension 19 FATHER History of - anemia 19 MOTHER Hypercholesterolemia 19 FATHER Psychotic disorder 19 MOTHER (depression/anxiety) Physical Exam Vital Signs Vital Sign - Last 12Hours 03/31/17 03/31/17 06:58 08:08 Temp 97.3 Pulse 0 Resp 0 B/P (MAP) 0/0 (0) Pulse Ox 0 O2 Delivery Ambu Bag Capillary Refill : General Appearance: Obese, Other (unresponsive) HEENT: Normal ENT Inspection Neck: Normal Inspection Respiratory: Normal Breath Sounds (with ventilation) Cardiovascular: Other (initially asystole but with epinephrine atrial fib rate approximately 150 with palpable pulse) Gastrointestinal: Normal Bowel Sounds, Other (obese nontender) Neurologic/Psychiatric: Other (minimal response to painful stimulus.) Skin: Normal Color, Other (skin initially cool to touch throughout.) Lymphatic: No Adenopathy Progress/Results/Core Measures Results/Orders Lab Results Laboratory Tests Test 03/31/17 07:25 03/31/17 07:28 Range/Units Urine Opiates Screen NEGATIVE NEGATIVE Urine Oxycodone Screen NEGATIVE NEGATIVE Urine Methadone Screen NEGATIVE NEGATIVE Urine Propoxyphene Screen NEGATIVE NEGATIVE Urine Barbiturates Screen NEGATIVE NEGATIVE Ur Tricyclic Antidepressants Screen NEGATIVE NEGATIVE Urine Phencyclidine Screen NEGATIVE NEGATIVE Urine Amphetamines Screen NEGATIVE NEGATIVE Urine Methamphetamines Screen NEGATIVE NEGATIVE Urine Benzodiazepines Screen NEGATIVE NEGATIVE Urine Cocaine Screen NEGATIVE NEGATIVE Urine Cannabinoids Screen NEGATIVE NEGATIVE White Blood Count 11.6 H 4.3-11.0 10^3/uL Red Blood Count 5.54 4.35-5.85 10^6/uL Hemoglobin 16.0 13.3-17.7 G/DL Hematocrit 47 40-54 % Mean Corpuscular Volume 85 80-99 FL Mean Corpuscular Hemoglobin 29 25-34 PG Mean Corpuscular Hemoglobin Concent 34 32-36 G/DL Red Cell Distribution Width 13.6 10.0-14.5 % Platelet Count 258 130-400 10^3/uL Mean Platelet Volume 11.7 H 7.4-10.4 FL Neutrophils (%) (Auto) 39 L 42-75 % Lymphocytes (%) (Auto) 56 H 12-44 % Monocytes (%) (Auto) 3 0-12 % Eosinophils (%) (Auto) 2 0-10 % Basophils (%) (Auto) 1 0-10 % Neutrophils # (Auto) 4.5 1.8-7.8 X 10^3 Lymphocytes # (Auto) 6.5 H 1.0-4.0 X 10^3 Monocytes # (Auto) 0.4 0.0-1.0 X 10^3 Eosinophils # (Auto) 0.2 0.0-0.3 10^3/uL Basophils # (Auto) 0.1 0.0-0.1 10^3/uL Prothrombin Time 22.4 H 12.2-14.7 SEC INR Comment 2.0 H 0.8-1.4 Sodium Level 138 135-145 MMOL/L Potassium Level 3.3 L 3.6-5.0 MMOL/L Chloride Level 99 98-107 MMOL/L Carbon Dioxide Level 13 L 21-32 MMOL/L Anion Gap 26 H 5-14 MMOL/L Blood Urea Nitrogen 12 7-18 MG/DL Creatinine 1.38 H 0.60-1.30 MG/DL Estimat Glomerular Filtration Rate 60 BUN/Creatinine Ratio 9 Glucose Level 384 H 70-105 MG/DL Calcium Level 9.3 8.5-10.1 MG/DL Total Bilirubin 0.5 0.1-1.0 MG/DL Aspartate Amino Transf (AST/SGOT) 198 H 5-34 U/L Alanine Aminotransferase (ALT/SGPT) 267 H 0-55 U/L Alkaline Phosphatase 52 40-136 U/L Troponin I < 0.30 <0.30 NG/ML Total Protein 6.8 6.4-8.2 GM/DL Albumin 3.5 3.2-4.5 GM/DL My Orders Orders - ELADIO DANIELSON MD Dopamine Drip (Dopamine Drip) (03/31/17 07:11) Cbc With Automated Diff (03/31/17 07:39) Comprehensive Metabolic Panel (03/31/17 07:39) Drug Screen Stat (Urine) (03/31/17 07:39) Protime With Inr (03/31/17 07:39) Troponin I (03/31/17 07:39) Chest 1 View, Ap/Pa Only (03/31/17 ) Manual Differential (03/31/17 07:28) Lactated Ringers (Lr 1000 Ml Iv Solution (03/31/17 07:57) Vital Signs/I&O Vital Sign - Last 12Hours 03/31/17 03/31/17 06:58 08:08 Temp 97.3 Pulse 0 Resp 0 0 B/P (MAP) 0/0 (0) Pulse Ox 0 O2 Delivery Ambu Bag Departure Impression Impression: Primary Impression: collapse at home Additional Impression: initial rhythm asystole Disposition: 02 XFER SHT-TRM HOSP Condition: Critical Transfer Time Spoke to Accepting Phy: 08:15 Transfer Progress Notes Arrangements made through the critical care transfer nurse. Dr. LORENZO Grullon will be the accepting tablet making machine operator helper. Bed assignment is to the cardiac ICU, [facility]. It will med notified. Transfer Time: 08:39 Transfer Facility: [facility] Method of Transfer: Air Departure-Patient Inst. Referrals: ISABELLE FRANCIS DO (PCP) Primary Care Physician KARI AMADOR (Family) Primary Care Physician ELADIO DANIELSON MD Mar 31, 2017 07:53
[2017-03-31 07:56] LABS: CARBON DIOXIDE 13 MMOL/L (21-32); CHLORIDE 99 MMOL/L (98-107); POTASSIUM 3.3 MMOL/L (3.6-5.0); SODIUM 138 MMOL/L (135-145)
[2017-03-31 07:57] LABS: ALANINE AMINOTRANSFERASE 267 U/L (0-55); ALBUMIN 3.5 GM/DL (3.2-4.5); ALKALINE PHOSPHATASE 52 U/L (40-136); BILIRUBIN,TOTAL 0.5 MG/DL (0.1-1.0); BUN/CREATININE RATIO 9; CALCIUM 9.3 MG/DL (8.5-10.1); CREATININE SERUM 1.38 MG/DL (0.60-1.30); GFR ESTIMATED 60; GLUCOSE 384 MG/DL (70-105); TOTAL PROTEIN 6.8 GM/DL (6.4-8.2)
[2017-03-31] MEDS ORDERED: LACTATED RINGERS 1,000 ML IV ONE (07:57)
[2017-03-31 08:03] LABS: AMPHETAMINE SCREEN, URINE NEGATIVE (NEGATIVE); BARBITURATE SCREEN URINE NEGATIVE (NEGATIVE); BENZODIAZEPINES SCREEN URINE NEGATIVE (NEGATIVE); CANNABINOID SCREEN, URINE NEGATIVE (NEGATIVE); COCAINE SCREEN URINE NEGATIVE (NEGATIVE); METHADONE STAT NEGATIVE (NEGATIVE); METHAMPHETAMINE SCREEN URINE S NEGATIVE (NEGATIVE); OPIATE SCREEN URINE NEGATIVE (NEGATIVE); OXYCODONE STAT NEGATIVE (NEGATIVE); PROPOXYPHENE STAT NEGATIVE (NEGATIVE); TRICYCLIC ANTIDEPRESSANTS SCRE NEGATIVE (NEGATIVE)
--- NOTE | 2017-03-31 08:09 | Diagnostic Imaging Report ---
INDICATION: Intubated. EXAMINATION: Chest 03/31/2017 COMPARISON: 11/13/2013 FINDINGS: There is a feeding tube with the tip in the stomach. ET tube tip is just below thoracic inlet at the level of the clavicles. Heart is prominent but could be due to portable technique. The pulmonary vasculature is mildly prominent as well. Overlying leads on the right somewhat obscure portions of the right lung. Visualized lungs are otherwise unremarkable with no effusions or pneumothorax. IMPRESSION: 1. Mild prominence of the pulmonary vasculature. This could be due to mild edema although the portable technique could accentuate these findings with tubes as described above. Dictated by: Dictated on workstation # [id number]
[2017-03-31 08:40] LABS: BAND NEUTROPHILS 4 %; EOSINOPHILS % (MANUAL) 3 %; LYMPHOCYTES % (MANUAL) 56 %; MONOCYTES % (MANUAL) 9 %; NEUTROPHILS % (MANUAL) 27 %; RBC MORPH NORMAL
[2017-03-31 08:45] LABS: REACTIVE LYMPHOCYTES 1 %
[2017-03-31 08:57] LABS: ABG BASE EXCESS -3.9 MMOL/L (-2.5-2.5); ABG OXYGEN SATURATION 96 % (94-100); ABG PCO2 41 MMHG (35-45); ABG PO2 72 MMHG (79-93); ABG TCO2 22.7 MMOL/L (21.0-31.0)
[2017-03-31 08:59] LABS: ABG PH 7.33 (7.37-7.43)
[2017-03-31 09:00] LABS: ALLENS TEST NEGATIVE; INSPIRED O2 80%; PATIENT TEMP 95.7; VENTILATOR YES
[2017-03-31 09:57] VITALS: BP 102/89
[2017-03-31] MEDS ORDERED: LACTATED RINGERS 1,000 ML IV SCH (10:00)
[2017-03-31 16:39] VITALS: BP 116/72
== END 2017-03-31 09:18 | disposition short-term general hospital (02) ==
LOC: EDUNIT# 06:57 → ER 07:00
DX: I49.8 Other specified cardiac arrhythmias (principal); Z79.01 Long term (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; Z82.49 Family history of ischemic heart disease and other diseases of the circulatory system
CPT/HCPCS: 31500; 36415; 71045; 80053; 80306; 82805; 84484; 85007; 85027; 85610; 93005; 93041; 94799

== ENCOUNTER 2017-08-24 13:01 | Outpatient (RCR) | payer MEDICAID, OTHER | END 2017-08-28 | disposition home or self-care (01) | PROVIDERS: ATTEND Physical Medicine & Rehabilitation | DX: G93.1 Anoxic brain damage, not elsewhere classified (principal); Z95.810 Presence of automatic (implantable) cardiac defibrillator; K21.9 Gastro-esophageal reflux disease without esophagitis; F32.9 Major depressive disorder, single episode, unspecified; R25.1 Tremor, unspecified ==

== ENCOUNTER 2017-09-21 13:00 | Outpatient (RCR) | payer MEDICAID | END 2017-11-27 09:29 | disposition home or self-care (01) | PROVIDERS: ATTEND Physical Medicine & Rehabilitation | DX: G93.1 Anoxic brain damage, not elsewhere classified (principal); Z95.810 Presence of automatic (implantable) cardiac defibrillator; K21.9 Gastro-esophageal reflux disease without esophagitis; F32.9 Major depressive disorder, single episode, unspecified; R25.1 Tremor, unspecified ==

== ENCOUNTER → 2017-10-30 | Outpatient (CLI) | payer MEDICAID ==
[2017-10-30 17:44] LABS: BASOPHILS # (AUTO) 0.1 10^3/uL (0.0-0.1); BASOPHILS % (AUTO) 1 % (0-10); EOSINOPHILS # (AUTO) 0.2 10^3/uL (0.0-0.3); EOSINOPHILS % (AUTO) 4 % (0-10); HEMATOCRIT 44 % (40-54); HEMOGLOBIN 14.9 G/DL (13.3-17.7); LYMPHOCYTES # (AUTO) 2.2 X 10^3 (1.0-4.0); LYMPHOCYTES % (AUTO) 34 % (12-44); MEAN CORPUSCULAR HEMOGLOBIN 28 PG (25-34); MEAN CORPUSCULAR HGB CONC 34 G/DL (32-36); MEAN CORPUSCULAR VOLUME 83 FL (80-99); MEAN PLATELET VOLUME 11.1 FL (7.4-10.4); MONOCYTES # (AUTO) 0.6 X 10^3 (0.0-1.0); MONOCYTES % (AUTO) 9 % (0-12); NEUTROPHILS # (AUTO) 3.4 X 10^3 (1.8-7.8); NEUTROPHILS % (AUTO) 53 % (42-75); PLATELET COUNT 242 10^3/uL (130-400); RED BLOOD COUNT 5.32 10^6/uL (4.35-5.85); RED CELL DISTRIBUTION WIDTH 14.9 % (10.0-14.5); WHITE BLOOD COUNT 6.5 10^3/uL (4.3-11.0)
[2017-10-30 18:03] LABS: BUN/CREATININE RATIO 15; CALCIUM 9.3 MG/DL (8.5-10.1); CARBON DIOXIDE 24 MMOL/L (21-32); CHLORIDE 106 MMOL/L (98-107); CREATININE SERUM 0.96 MG/DL (0.60-1.30); GFR ESTIMATED > 60; GLUCOSE 89 MG/DL (70-105); MAGNESIUM 2.2 MG/DL (1.8-2.4); SODIUM 139 MMOL/L (135-145)
== END ==
LOC: LAB 17:26
PROVIDERS: ATTEND Internal Medicine Cardiovascular Disease
DX: I48.0 Paroxysmal atrial fibrillation (principal)
CPT/HCPCS: 36415; 80048; 83735; 85025

== ENCOUNTER → 2017-12-23 | Outpatient (CLI) | payer MEDICAID ==
[2017-12-23 07:42] LABS: BUN/CREATININE RATIO 14; CALCIUM 9.4 MG/DL (8.5-10.1); CARBON DIOXIDE 23 MMOL/L (21-32); CHLORIDE 104 MMOL/L (98-107); CREATININE SERUM 0.88 MG/DL (0.60-1.30); GFR ESTIMATED > 60; GLUCOSE 97 MG/DL (70-105); POTASSIUM 3.8 MMOL/L (3.6-5.0); SODIUM 139 MMOL/L (135-145)
== END ==
LOC: LAB 06:57
PROVIDERS: ATTEND Internal Medicine Cardiovascular Disease
DX: I48.0 Paroxysmal atrial fibrillation (principal)
CPT/HCPCS: 36415; 80048

== ENCOUNTER → 2018-03-27 | Outpatient (RCR) | payer MEDICAID | END | disposition home or self-care (01) | PROVIDERS: ATTEND Internal Medicine | DX: G93.1 Anoxic brain damage, not elsewhere classified (principal) ==

== ENCOUNTER 2018-04-19 12:46 | Outpatient (RCR) | payer MEDICAID | END 2018-04-19 17:00 | disposition home or self-care (01) | PROVIDERS: ATTEND Internal Medicine | DX: G93.1 Anoxic brain damage, not elsewhere classified (principal) ==

== ENCOUNTER → 2018-04-21 | Outpatient (CLI) | payer MEDICAID ==
[2018-04-21 18:34] LABS: FREE T4 (FREE THYROXINE) 1.07 NG/DL (0.70-1.48)
== END ==
LOC: LAB 17:17
PROVIDERS: ATTEND Internal Medicine
DX: R53.83 Other fatigue (principal)
CPT/HCPCS: 36415; 82306; 82607; 84439; 84443

== ENCOUNTER → 2018-04-21 | Outpatient (CLI) | payer MEDICAID ==
[2018-04-21 17:53] LABS: HEMOGLOBIN 13.8 G/DL (13.3-17.7); MEAN PLATELET VOLUME 10.7 FL (7.4-10.4); RED CELL DISTRIBUTION WIDTH 14.2 % (10.0-14.5); WHITE BLOOD COUNT 8.7 10^3/uL (4.3-11.0)
[2018-04-21 18:12] LABS: BUN/CREATININE RATIO 14; CARBON DIOXIDE 25 MMOL/L (21-32); CHLORIDE 102 MMOL/L (98-107); CREATININE SERUM 0.85 MG/DL (0.60-1.30); GFR ESTIMATED > 60; GLUCOSE 92 MG/DL (70-105); MAGNESIUM 2.1 MG/DL (1.8-2.4); POTASSIUM 3.9 MMOL/L (3.6-5.0); SODIUM 137 MMOL/L (135-145)
== END ==
LOC: LAB 17:24
PROVIDERS: ATTEND Internal Medicine Cardiovascular Disease
DX: Z09 Encounter for follow-up examination after completed treatment for conditions other than malignant neoplasm (principal); Z95.810 Presence of automatic (implantable) cardiac defibrillator
CPT/HCPCS: 36415; 80048; 83735; 85027

== ENCOUNTER 2018-05-09 17:45 | Emergency (ER) | payer MEDICAID ==
[~2018-05-09] VITALS: Ht 162.6 cm; Wt 98.4 kg
--- OUTSIDE RECORDS SUMMARY | 2018-05-09 17:56 | XMS REPORT | Encounter Summary ---
Author Author [facility] Organization [facility] Address Unknown Phone Unavailable Care Team Providers Care Automated Manufacturing Instructor Name Role Phone Erum Foreman MD PCP Erum Foreman MD 100 Reason for Visit * Reason Comments Medication Refill Encounter Details Care Team Description Date Type Department Todd Sauer MD [address] [address] Medication Refill 05/03/2018 Refill Cardiovascular Medicine [facility] [address] [place] [phone] [place] [address] Social History Date Tobacco Use Types Packs/Day Years Used Never Smoker Smokeless Tobacco: Never Used Alcohol Use Drinks/Week oz/Week Comments No Sex Assigned at Date Recorded Not on file Industry Job Start Date Occupation Not on file Not on file Not on file Travel End Travel History Travel Start No recent travel history available. as of this encounter Functional Status Date of Assessment Functional Status Response 09/29/2017 Does the patient have a hearing impairment: No 05/03/2017 Does the patient have a visual impairment: Yes 05/03/2017 Does the patient have impaired ambulation: Yes 05/03/2017 Does the patient have an activity of daily living Yes (ADL) impairment: 05/03/2017 Does the patient have an instrumental activity of Yes daily living (IADL) impairment: Date of Assessment Cognitive Status Response 05/03/2017 Does the patient have a cognitive impairment: Yes as of this encounter Plan of Treatment Not on fileas of this encounter Visit Diagnoses Not on filein this encounter
--- OUTSIDE RECORDS SUMMARY | 2018-05-09 17:56 | XMS REPORT | Encounter Summary ---
Author Author [facility] Organization [facility] Address Unknown Phone Unavailable Care Team Providers Care Spaghetti Machine Operator Name Role Phone Erum Foreman MD PCP Erum Foreman MD 100 Reason for Visit * Reason Comments Other BP concerns Encounter Details Care Team Description Date Type Department Val Meza RN Other (BP concerns) 05/02/2018 Telephone Cardiovascular Medicine [place] [phone] [place] [address] Social History Date Tobacco Use Types Packs/Day [...] cognitive impairment: Yes as of this encounter Miscellaneous Notes * Telephone Encounter - Val Meza RN - 05/02/2018 9:54 AM LACE PAPER MACHINE OPERATOR Patient's father and caregiver, Kellie, regarding recent BP readings. Kellie states he his BP "shot up" to 129/107, HR 66, around 1600 yesterday. States he was sitting playing video games at the time. Denies any other associated symptoms including headache, blurry vision, palpitations, chest pain, SOB. She retook BP about an hour later and was 1114/72, HR 62. BP this AM 114/66, HR 67. Patient denies any symptoms. He is compliant with medications. Patient recently went in for RA lead revision with MPE, but it was cancelled. Device interrogation that day showed normal lead function. Will continue to monitor. Advised to monitor for future BP fluctuations and call with any concerns. Kellie stated understanding. PAPER MACHINE OPERATOR * Telephone Encounter - Val Meza RN - 05/02/2018 9:37 AM LACE PAPER MACHINE OPERATOR ----- Message from Alejandra Murrieta LPN sent at 05/02/2018 7:59 AM LACE PAPER MACHINE OPERATOR ----- Regarding: YMR- elevated b/p VM from dad Je on triage line at 5:11pm last night. Said that his b/p was elevated yesterday at 129/107, HR-66 and at 4pm 114/72, HR -62. Call back on cell. PAPER MACHINE OPERATOR in this encounter Plan of Treatment Not on fileas of this encounter Visit Diagnoses Not on filein this encounter
--- OUTSIDE RECORDS SUMMARY | 2018-05-09 17:56 | XMS REPORT | Encounter Summary ---
Author Author [facility] Organization [facility] Address Unknown Phone Unavailable Care Team Providers Care Marine Diver Name Role Phone Erum Foreman MD PCP Erum Foreman MD 100 Reason for Visit * Reason Comments Appointment Encounter Details Care Team Description Date Type Department Lisa Ojeda RN Appointment 04/30/2018 Telephone [facility] [address] [place] [phone] [place] [address] Social History Date Tobacco Use Types Packs/Day [...] encounter Miscellaneous Notes * Telephone Encounter - Lisa Ojeda RN - 04/30/2018 9:51 AM BULB WEEDER Attempted to return call to patient. Unable to reach. LVM requesting CB to get him rescheduled. WEEDER * Telephone Encounter - Lisa Ojeda RN - 04/30/2018 9:50 AM BULB WEEDER ----- Message from Alejandra Murrieta LPN sent at 04/30/2018 9:31 AM BULB WEEDER ----- Regarding: YMR- cancel today VM from dad Je on triage line. He called back again to make sure it was right that MPE canceled today. He will not be able to make it now if we really wanted to see him. Do we need to see him. Call back at # [phone]. WEEDER in this encounter Plan of Treatment Not on fileas of this encounter Visit Diagnoses Not on filein this encounter
--- OUTSIDE RECORDS SUMMARY | 2018-05-09 17:56 | XMS REPORT | Clinical Summary ---
Author Author [facility] Organization [facility] Address Unknown Phone Unavailable Care Team Providers Care Connie Scratcher Name Role Phone Erum Foreman MD PCP Erum Foreman MD 100 Source Comments Some departments are not documenting in the electronic medical record. If you do not see the information that you expected, contact Release of Information in the Health Information Management department at [phone] for further assistance in locating additional records.[facility] Allergies Comments Active Allergy Reactions Severity Noted Date Penicillins RASH Medium 06/06/2011 Medications End Date Status Medication Sig Dispensed Refills Start Date Active magnesium oxide (MAG-OX) Take 1 tablet 180 tablet 3 400 mg tablet by mouth 8 twice daily. Active senna/docusate Take 2 30 tablet 0 (SENOKOT-S) 8.6/50 mg tablets by 8 tablet mouth twice daily. Active metoprolol XL (TOPROL XL) Take one 90 tablet 3 50 mg extended release tablet by 8 tabletIndications: PAF mouth daily. (paroxysmal atrial fibrillation) (HCC) Active apixaban (ELIQUIS) 5 mg Take 1 tablet 60 tablet 11 tablet by mouth 8 twice daily. Active sertraline (ZOLOFT) 50 mg Take one 90 tablet 1 tablet tablet by 8 mouth daily. Active sacubitril/valsartan Take one 180 tablet 3 (ENTRESTO) 24/26 mg tablet by 8 tablet mouth twice daily. Active pantoprazole DR Take one 90 tablet 1 (PROTONIX) 40 mg tablet tablet by 9 mouth twice daily. 05/03/[address] Take one 90 tablet 1 (PROTONIX) 40 mg tablet tablet by 9 mouth twice daily. Active Problems Problem Noted Date Atrial pacemaker lead displacement 04/24/2018 Chronic systolic heart failure 03/02/2018 NICM (nonischemic cardiomyopathy) 03/02/2018 PAF (paroxysmal atrial fibrillation) 10/11/2017 Overview: Added automatically from request for surgery [id number] Hospital discharge follow-up 10/11/2017 Atrial fibrillation 09/28/2017 Overview: Added automatically from request for surgery [id number] Obesity (BMI 30-39.9) 09/12/2017 Establishing care with new doctor, encounter for 07/31/2017 Depression 07/31/2017 Adjustment disorder with mixed anxiety and depressed mood 05/10/2017 Cognitive impairment 05/04/2017 Memory impairment 05/04/2017 Vision impairment 05/04/2017 Motor apraxia 05/04/2017 Impaired mobility and ADLs 05/03/2017 Anoxic brain injury 04/04/2017 Cardiac arrest 03/31/2017 Nonischemic cardiomyopathy 10/31/2013 Chronic anticoagulation 10/28/2013 Overview: Rashad Chronic headaches 06/06/2011 Resolved Problems Problem Noted Date Resolved Date Moderate malnutrition 04/21/2017 05/15/2017 Prolonged QT interval 04/10/2017 05/03/2017 Acute respiratory failure with hypoxia 04/04/2017 05/03/2017 Dysphagia 03/31/2017 05/03/2017 Overview: Added automatically from request for surgery [id number] Atrial flutter 06/06/2011 03/31/2017 Permanent atrial fibrillation 06/05/2011 10/01/2017 Overview: 3-2011 Multiple runs of AF, up to a few hours duration by 45hr holter. 09/20/2013 - ECHO: LVEF ~ 25%. LA size=3.7 cm. Four chamber dilation with severe cardiomyopathy. LA dilation with no clot / thrombus, Severe TVR, mild MVR. Estimated PAP ~ 35mmHg. 09/21/2013 - Unsuccessful DCCV to maintain NSR. ([facility]) 11/13/2013 - CHIQUIS + DCCV: Cardioversion to restore NSR. ([facility]). Ventricular tachycardia (paroxysmal) 06/05/2011 05/03/2017 Overview: 45Hr Holter: SR, Afib & VT. Ave HR 83bpm, VME=159 & min 33bpm. One 2 sec pause. Wide beats: 641, 0.3%. Wide pairs: 2;wide runs:25. Longest VT up to 13 beats ( wide beats). Multiple episodes of Afib, up to a few hours duration per Dr Goldstein. 05/25/11 Ex Echo stress test ( Via [place], [place]) 10.1 METS, 93% of predicted MR reached. No significant arrhythmia or ischemia noted. EF 6-%, no abnormalities with stress. 2D echo: EF 60%. LA 3.4cm. RA, RV size normal. MIld MR & TR. AoV w/o stenosis or regurg. PAP est at 30mmHg. Encounters Care Team Description Date Type Specialty Todd Sauer MD Medication Refill 05/03/2018 Refill Cardiology Val Meza RN Other (BP concerns) 05/02/2018 Telephone Cardiology Lisa Ojeda RN Appointment 04/30/2018 Telephone Cardiology Anton Figueroa MD 04/24/2018 Hospital Cardiology Encounter Anton Figueroa MD Atrial pacemaker lead displacement 04/24/2018 Hospital Cardiology Encounter Gita Hartley RN Order Follow Up (CXR pre procedure tomorrow) 04/23/2018 Documentation Cardiology Nita Cabrera PAF (paroxysmal atrial fibrillation) ([facility]) 04/23/2018 Orders Only Cardiology Thalia Roper APRN 04/23/2018 Pre-Admit Cardiology Orders Only José Jett RN Precertification (Approval for ICD Lead Revision through [employer]) 04/20/2018 Documentation Cardiology Gita Hartley RN ICD (implantable cardioverter-defibrillator) lead failure, initial encounter (Primary Dx) 04/20/2018 Prep for Case Cardiology Val Meza RN Other (Remote alert for RA lead issue) 04/20/2018 Telephone Cardiology Erum Foreman MD Fatigue 04/20/2018 Telephone General Internal Medicine Val Meza RN Medication Refill (Protonix refill) 04/04/2018 Telephone Cardiology Boo Singh MD 03/29/2018 Refill Cardiothoracic Surgery Anton Figueroa MD Canceled (Office-Scheduling Error) 03/21/2018 Hospital Cardiology Encounter Erum Foreman MD Transition Of Care 03/05/2018 Telephone General Internal Medicine Selena Power RN Cardiac Device Remote Enrollment (in [employer] remote interrogation. Communication established to remote transmitter. ) 03/05/2018 Documentation Cardiology Todd Sauer MD 03/04/2018 Hospital Cardiology Encounter America Ibarra RN Cardiac device in situ (Primary Dx) 03/04/2018 Orders Only Cardiology Anton Figueroa MD INSERTION/ REPLACEMENT IMPLANTABLE DEFIBRILLATOR SYSTEM AND RIGHT ATRIAL LEAD (UPGRADE TO DUAL ICD FROM VVI ICD) 03/02/2018 Surgery Cardiology Logan Pena CRNA 03/02/2018 Anesthesia Cardiology Event Todd Sauer MD Emert, Martin P, MD Nonischemic cardiomyopathy (HCC) 03/02/2018 Hospital Cardiology - Encounter 03/03/2018 Angeline Lutz APRN NICM (nonischemic cardiomyopathy) (HCC) (Primary Dx); Atrial fibrillation, unspecified type (HCC) 02/28/2018 Pre-Admit Cardiology Orders Only Erum Foreman MD Order Needed 02/27/2018 Telephone General Internal Medicine Naomi Cruz APRN-C 02/26/2018 Hospital Cardiology Encounter Naomi Cruz APRN-C History And Physical (ICD upgrade) 02/26/2018 Office Visit Cardiology Erum Foreman MD Atrial fibrillation 02/20/2018 Telephone General Internal Medicine Stephany Matias RN Follow-up Phone Call 02/19/2018 Telephone Cardiology Rebecca Edmonds Pre-Certification (Approval) 02/16/2018 Documentation Cardiology from Last 3 Months Immunizations Name Dates Previously Given Next Due DTaP Vaccine 06/21/1991, 11/30/1989, 04/14/1988, 08/06/1987, 1986 Flu Vaccine=>6 Months 01/22/2018, 04/13/2017 Quadrivalent PF Hib vaccine, unspecified 10/25/1990 (Historical) MMR Vaccine 06/21/1991, 08/06/1987 Meningococcal Conjug 08/27/2004 Vaccine IM (MenACWY-D)(Menactra) OPV 11/30/1989, 04/14/1988, 08/06/1987, 1986 Pneumococcal Vaccine 04/13/2017 (23-Lisa Adult) Family History Medical History Relation Name Comments Hypertension Father Unknown to Patient Mother Cancer Paternal Aunt Lung Cancer Paternal Colon Grandfather Diabetes Paternal Grandfather Cancer Paternal Colon Grandmother Diabetes Paternal Grandmother Hypertension Paternal Grandmother Diabetes Paternal Uncle Relation Name Status Comments Father Alive Mother Alive Paternal Aunt Paternal Grandfather Paternal Grandmother Paternal Uncle Alive Social History Date Tobacco Use Types Packs/Day Years Used Never Smoker Smokeless Tobacco: Never Used Alcohol Use Drinks/Week oz/Week Comments No Sex Assigned at Date Recorded Not on file Industry Job Start Date Occupation Not on file Not on file Not on file Travel End Travel History Travel Start No recent travel history available. Last Filed Vital Signs Time Taken Vital Sign Reading 04/24/2018 4:00 PM SENIOR INDUSTRIAL ENGINEER Blood Pressure 115/65 04/24/2018 4:00 PM SENIOR INDUSTRIAL ENGINEER Pulse 75 04/24/2018 12:25 PM SENIOR INDUSTRIAL ENGINEER Temperature 36.8 C (98.2 F) 01/22/2018 1:06 PM SENIOR INDUSTRIAL ENGINEER Respiratory Rate 16 04/24/2018 4:00 PM SENIOR INDUSTRIAL ENGINEER Oxygen Saturation 98% - Inhaled Oxygen - Concentration 04/24/2018 12:25 PM SENIOR INDUSTRIAL ENGINEER Weight 99 kg (218 lb 4.1 oz) 04/24/2018 12:25 PM SENIOR INDUSTRIAL ENGINEER Height 162.6 cm (5' 4") 04/24/2018 12:25 PM SENIOR INDUSTRIAL ENGINEER Body Mass Index 37.46 Plan of Treatment Health Maintenance Due Date Last Done Comments TETANUS VACCINE 2003 06/21/1991, 11/30/1989, 04/14/1988, Additional history exists PHYSICAL (COMPREHENSIVE) 07/31/2018 07/31/2017 EXAM INFLUENZA VACCINE Completed 01/22/2018, 04/13/2017 Implants Device Identifier Shelf Expiration Date Model / Serial / Lot Implanted Type Area Manufactur er Icd ICD 11/19/2019 [id number] / [id number] / [id number] Atriclip 45mm Pro2 Valeri Exclusion N/A: Heart ATRICURE System Manolo-Neli - [id number] Implanted: Qty: 1 on 09/29/2017 by Boo Singh MD Procedures Comments Procedure Name Priority Date/Time Associated Diagnosis DEVICE EVALUATION - ICD Routine 04/24/2018 5:46 PM SENIOR INDUSTRIAL ENGINEER CHEST 2 VIEWS Routine 04/24/2018 1:29 PM SENIOR INDUSTRIAL ENGINEER ECG 12-LEAD Routine 04/24/2018 12:42 PM SENIOR INDUSTRIAL ENGINEER ECG-SCAN 04/24/2018 12:00 AM SENIOR INDUSTRIAL ENGINEER BASIC METABOLIC PANEL Routine 04/21/2018 PAF (paroxysmal atrial fibrillation) (HCC) CBC Routine 04/21/2018 PAF (paroxysmal atrial fibrillation) (HCC) MAGNESIUM Routine 04/21/2018 PAF (paroxysmal atrial fibrillation) (HCC) DEVICE EVALUATION - Routine 03/21/2018 Cardiac device in situ REMOTE ICD 3:28 PM SENIOR INDUSTRIAL ENGINEER DEVICE EVALUATION - ICD Routine 03/04/2018 9:40 PM SENIOR INDUSTRIAL ENGINEER CHEST 2 VIEWS Routine 03/03/2018 6:36 AM SENIOR INDUSTRIAL ENGINEER BASIC METABOLIC PANEL Routine 03/03/2018 4:00 AM SENIOR INDUSTRIAL ENGINEER CBC Routine 03/03/2018 4:00 AM SENIOR INDUSTRIAL ENGINEER ECG 12-LEAD Routine 03/03/2018 2:00 AM SENIOR INDUSTRIAL ENGINEER INJECTION VENOGRAPHY - Routine 03/02/2018 PAF (paroxysmal atrial EXTREMITY 9:25 PM SENIOR INDUSTRIAL ENGINEER fibrillation) ([facility]) FLUOROSCOPY - CARDIAC Routine 03/02/2018 PAF (paroxysmal atrial 9:25 PM SENIOR INDUSTRIAL ENGINEER fibrillation) ([facility]) INSERTION/ REPLACEMENT Routine 03/02/2018 PAF (paroxysmal atrial IMPLANTABLE DEFIBRILLATOR 9:25 PM SENIOR INDUSTRIAL ENGINEER fibrillation) ([facility]) SYSTEM AND LEAD TELEMETRY STRIPS-SCAN 03/02/2018 12:00 AM SENIOR INDUSTRIAL ENGINEER ECG-SCAN 03/02/2018 12:00 AM SENIOR INDUSTRIAL ENGINEER MAGNESIUM Routine 02/26/2018 Atrial fibrillation, 1:11 PM SENIOR INDUSTRIAL ENGINEER unspecified type (HCC) CBC Routine 02/26/2018 Atrial fibrillation, 1:11 PM SENIOR INDUSTRIAL ENGINEER unspecified type (HCC) BASIC METABOLIC PANEL Routine 02/26/2018 Atrial fibrillation, 1:11 PM SENIOR INDUSTRIAL ENGINEER unspecified type (HCC) ECG-SCAN 02/26/2018 12:00 AM SENIOR INDUSTRIAL ENGINEER ECG-SCAN 02/15/2018 4:10 PM SENIOR INDUSTRIAL ENGINEER ECG-SCAN 02/15/2018 4:10 PM SENIOR INDUSTRIAL ENGINEER from Last 3 Months Results * DEVICE EVALUATION - ICD (04/24/2018 5:46 PM SENIOR INDUSTRIAL ENGINEER) RV Lead Cabinet Maker [employer] OTHER OUTSIDE LAB RV Lead Model # Plexa ProMRI S 65 OTHER OUTSIDE LAB RV Lead Serial # [id number] OTHER OUTSIDE LAB RV Lead Implant Date 04/18/2017 OTHER OUTSIDE LAB RV Lead Fixation active fixation OTHER OUTSIDE LAB RV Lead Location RV mid septum OTHER OUTSIDE LAB RV Lead Pin Connector ICD IS1 OTHER OUTSIDE LAB RV Lead Coil Single OTHER OUTSIDE LAB Generator Cabinet Maker [employer] OTHER OUTSIDE LAB Generator Implnat Date 03/02/2018 OTHER OUTSIDE LAB Device Type VVI-ICD OTHER OUTSIDE LAB Device Mode DDDR OTHER OUTSIDE LAB Mode Switch Status On OTHER OUTSIDE LAB Lower Rate Limit 60 OTHER OUTSIDE LAB Mode Switch (bpm) 160 OTHER OUTSIDE LAB Upper Rate Limit 130 OTHER OUTSIDE LAB Sensor Rate Limit 120 OTHER OUTSIDE LAB Pace AV Delay 250 OTHER OUTSIDE LAB Sense AV Delay 250 OTHER OUTSIDE LAB VT Monitor 176 OTHER OUTSIDE LAB High A Rate Detect NA OTHER OUTSIDE LAB VT Detect Rate Tx ATP SHOCK OTHER OUTSIDE LAB FVT Detect Rate Tx NA OTHER OUTSIDE LAB VF Detect Rate Tx ATP SHOCK OTHER OUTSIDE LAB VT Detect Rate (bpm) 194 OTHER OUTSIDE LAB FVT Detect Rate (bpm) NA OTHER OUTSIDE LAB VF Detect Rate (bpm) 231 OTHER OUTSIDE LAB High V Rate Detect 176 OTHER OUTSIDE LAB RV Lead Diaph. 10 OTHER OUTSIDE LAB Stimulation Remote Monitoring? Yes OTHER OUTSIDE LAB Date of baseline remote 05/09/17 OTHER OUTSIDE LAB transmission Date of Last Remote Check 03/16/18 OTHER OUTSIDE LAB Device Implanted By Todd Sauer MD OTHER OUTSIDE LAB Date of Last Programming 04/24/18 OTHER OUTSIDE LAB Date of Last 04/24/17 OTHER OUTSIDE LAB Interrogation HF Patient No OTHER OUTSIDE LAB EP Device Followed By MAC OTHER OUTSIDE LAB EP Device Followed by Todd Sauer MD OTHER OUTSIDE LAB Name Known Diagnosed AFib Yes OTHER OUTSIDE LAB On Anticoagulation Yes OTHER OUTSIDE LAB Generator Investigational No OTHER OUTSIDE LAB RV Lead Investigational No OTHER OUTSIDE LAB BITA/EOL Indicator Per transmitter/c programmer OTHER OUTSIDE LAB Wireless Generator Yes OTHER OUTSIDE LAB Daily Hasty Threshld Off OTHER OUTSIDE LAB Alert? Average Venticular Rate Off OTHER OUTSIDE LAB AT/AF On/Off Enrollment Date 04/18/17 OTHER OUTSIDE LAB VF Detection/Therapy Off On OTHER OUTSIDE LAB Remote Monitor Serial# [id number] OTHER OUTSIDE LAB RV Lead MRI Conditional Yes OTHER OUTSIDE LAB Remote Connectivity Cellular adaptor OTHER OUTSIDE LAB Accssory Serial Number CardioMessenger Smart OTHER OUTSIDE LAB Known Diagnosed VT VT No OTHER OUTSIDE LAB ATP No OTHER OUTSIDE LAB Device Shock No OTHER OUTSIDE LAB Device Remote Manual No OTHER OUTSIDE LAB Downloads Next Remote Check Due 06/15/18 OTHER OUTSIDE LAB Atrial Lead Cabinet Maker [employer] OTHER OUTSIDE LAB Atrial Lead Model # PRO MRI SOLIA S 53 OTHER OUTSIDE LAB Atrial Lead Serial # [id number] OTHER OUTSIDE LAB Atrial Lead Implant Date 03/02/2018 OTHER OUTSIDE LAB Atrial Lead No OTHER OUTSIDE LAB Investigational Atrial Lead Fixation active fixation OTHER OUTSIDE LAB Atrial Lead Polarity Bipolar OTHER OUTSIDE LAB Atrial Lead Pin Connector IS1 OTHER OUTSIDE LAB Atrial Lead MRI Yes OTHER OUTSIDE LAB Conditional Generator Model # ILIVIA 7 DEAN OTHER OUTSIDE LAB Generator Serial # [id number] OTHER OUTSIDE LAB Atrial Lead Diaph. 10 OTHER OUTSIDE LAB Stimulation Device Function WNL Yes OTHER OUTSIDE LAB Device Reprogram No OTHER OUTSIDE LAB Programming? Yes OTHER OUTSIDE LAB Interrogation? Yes OTHER OUTSIDE LAB Device Check by Rep Yes OTHER OUTSIDE LAB ICM Evaluation No OTHER OUTSIDE LAB Remote Check? No OTHER OUTSIDE LAB Narrative Performed At OTHER OUTSIDE LAB In-patient full check (rep) [04/24/2018 5:49:27 PM - JOSÉ MIGUEL KAM] Device checked by Homero [employer] device rep: - RA lead procedure cancelled. - turned ON T.I. Please see attached HRM data sheet for > detail as needed. Routed to Dr Figueroa for co-sign. Performing Organization Address City/State/Zipcode Phone Number OTHER OUTSIDE LAB * CHEST 2 VIEWS (04/24/2018 1:29 PM SENIOR INDUSTRIAL ENGINEER) Only the most recent of 2 results within the time period is included. Impressions Performed At Indwelling cardiac conduction device without acute cardiopulmonary abnormality. [facility] Approved by Jana Fitzgerald M.D. on 04/24/2018 1:46 PM By my electronic signature, I attest that I have personally reviewed the images for this examination and formulated the interpretations and opinions expressed in this report Finalized by FERCHO GAGE M.D. on 04/24/2018 2:35 PM. Dictated by Jana Fitzgerald M.D. on 04/24/2018 1:31 PM. Narrative Performed At Procedure: CHEST 2 VIEWS [facility] Clinical Indication: Right atrial lead malfunction Comparison: Chest x-ray 03/03/2018 Findings: Cardiac conduction device is in place with leads in similar position. Prior left atrial appendage clipping. Heart is normal in size without pulmonary vascular congestion. No pleural effusion, focal area of consolidation, or pneumothorax. Procedure Note Interface, Radiant Results - 04/24/2018 2:38 PM SENIOR INDUSTRIAL ENGINEER Procedure: CHEST 2 VIEWS Clinical Indication: Right atrial lead malfunction Comparison: Chest x-ray 03/03/2018 Findings: Cardiac conduction device is in place with leads in similar position. Prior left atrial appendage clipping. Heart is normal in size without pulmonary vascular congestion. No pleural effusion, focal area of consolidation, or pneumothorax. IMPRESSION Indwelling cardiac conduction device without acute cardiopulmonary abnormality. Approved by Jana Fitzgerald M.D. on 04/24/2018 1:46 PM By my electronic signature, I attest that I have personally reviewed the images for this examination and formulated the interpretations and opinions expressed in this report Finalized by FERCHO GAGE M.D. on 04/24/2018 2:35 PM. Dictated by Jana Fitzgerald M.D. on 04/24/2018 1:31 PM. Performing Organization Address City/State/Zipcode Phone Number [facility] * ECG-SCAN (04/24/2018 12:00 AM SENIOR INDUSTRIAL ENGINEER) Narrative Performed At Ordered by an unspecified provider. * CBC (04/21/2018) Only the most recent of 3 results within the time period is included. White Blood Cells 8.7 [facility] RBC 4.97 [facility] Hemoglobin 13.8 [facility] Hematocrit 41 [facility] MCV [facility] MCH [facility] M[facility]C [facility] Platelet Count 248 [facility] MPV [facility] RDW [facility] Specimen Blood - Blood Narrative Performed At Performing Organization Address [facility] Phone Number [facility] [address] [address] [place] * MAGNESIUM (04/21/2018) Only the most recent of 2 results within the time period is included. Magnesium 2.1 [facility] Specimen Blood - Blood Narrative Performed At Performing Organization Address [place] Phone Number [facility] [address] [address] [place] * BASIC METABOLIC PANEL (04/21/2018) Only the most recent of 3 results within the time period is included. Sodium 137 [facility] Potassium 3.9 [facility] Chloride 102 [facility] CO2 25 [facility] Blood Urea Nitrogen 12 [facility] Creatinine 0.85 [facility] Glucose 92 [facility] Calcium 9.0 [facility] eGFR Non >60 [facility] eGFR >60 [facility] Anion Gap 10 [facility] Specimen Blood - Blood Narrative Performed At Performing Organization Address City/[facility] Phone Number [facility] [address] [address] [place] * DEVICE EVALUATION - REMOTE ICD (03/21/2018 3:28 PM SENIOR INDUSTRIAL ENGINEER) RV Lead Cabinet Maker [employer] OTHER OUTSIDE LAB RV Lead Model # Plexa ProMRI S 65 OTHER OUTSIDE LAB RV Lead Serial # [id number] OTHER OUTSIDE LAB RV Lead Implant Date 04/18/2017 OTHER OUTSIDE LAB RV Lead Fixation active fixation OTHER OUTSIDE LAB RV Lead Location RV mid septum OTHER OUTSIDE LAB RV Lead Pin Connector ICD IS1 OTHER OUTSIDE LAB RV Lead Coil Single OTHER OUTSIDE LAB Generator Cabinet Maker [employer] OTHER OUTSIDE LAB Generator Implnat Date 03/02/2018 OTHER OUTSIDE LAB Device Type VVI-ICD OTHER OUTSIDE LAB Device Mode DDDR OTHER OUTSIDE LAB Mode Switch Status On OTHER OUTSIDE LAB Lower Rate Limit 60 OTHER OUTSIDE LAB Mode Switch (bpm) 160 OTHER OUTSIDE LAB Upper Rate Limit 130 OTHER OUTSIDE LAB Sensor Rate Limit 120 OTHER OUTSIDE LAB Pace AV Delay 250 OTHER OUTSIDE LAB Sense AV Delay 250 OTHER OUTSIDE LAB VT Monitor 176 OTHER OUTSIDE LAB High A Rate Detect NA OTHER OUTSIDE LAB VT Detect Rate Tx ATP SHOCK OTHER OUTSIDE LAB FVT Detect Rate Tx NA OTHER OUTSIDE LAB VF Detect Rate Tx ATP SHOCK OTHER OUTSIDE LAB VT Detect Rate (bpm) 194 OTHER OUTSIDE LAB FVT Detect Rate (bpm) NA OTHER OUTSIDE LAB VF Detect Rate (bpm) 231 OTHER OUTSIDE LAB High V Rate Detect 176 OTHER OUTSIDE LAB RV Lead Diaph. 10 OTHER OUTSIDE LAB Stimulation Remote Monitoring? Yes OTHER OUTSIDE LAB Date of baseline remote 05/09/17 OTHER OUTSIDE LAB transmission Date of Last Remote Check 03/16/18 OTHER OUTSIDE LAB Next Programming Check 09/2018 OTHER OUTSIDE LAB Due Device Implanted By Todd Sauer MD OTHER OUTSIDE LAB Date of Last Programming 10/17/17 OTHER OUTSIDE LAB Date of Last 10/17/17 OTHER OUTSIDE LAB Interrogation HF Patient No OTHER OUTSIDE LAB EP Device Followed By MAC OTHER OUTSIDE LAB EP Device Followed by Todd Sauer MD OTHER OUTSIDE LAB Name Known Diagnosed AFib Yes OTHER OUTSIDE LAB On Anticoagulation Yes OTHER OUTSIDE LAB Generator Investigational No OTHER OUTSIDE LAB RV Lead Investigational No OTHER OUTSIDE LAB BITA/EOL Indicator Per transmitter/c programmer OTHER OUTSIDE LAB Wireless Generator Yes OTHER OUTSIDE LAB Daily Hasty Threshld Off OTHER OUTSIDE LAB Alert? Average Venticular Rate Off OTHER OUTSIDE LAB AT/AF On/Off Enrollment Date 04/18/17 OTHER OUTSIDE LAB VF Detection/Therapy Off On OTHER OUTSIDE LAB Remote Monitor Serial# [id number] OTHER OUTSIDE LAB RV Lead MRI Conditional Yes OTHER OUTSIDE LAB Remote Connectivity Cellular adaptor OTHER OUTSIDE LAB Accssory Serial Number CardioMessenger Smart OTHER OUTSIDE LAB Known Diagnosed VT VT No OTHER OUTSIDE LAB ATP No OTHER OUTSIDE LAB Device Shock No OTHER OUTSIDE LAB Device Remote Manual No OTHER OUTSIDE LAB Downloads Next Remote Check Due 06/15/18 OTHER OUTSIDE LAB Atrial Lead Cabinet Maker [employer] OTHER OUTSIDE LAB Atrial Lead Model # PRO MRI SOLIA S 53 OTHER OUTSIDE LAB Atrial Lead Serial # [id number] OTHER OUTSIDE LAB Atrial Lead Implant Date 03/02/2018 OTHER OUTSIDE LAB Atrial Lead No OTHER OUTSIDE LAB Investigational Atrial Lead Fixation active fixation OTHER OUTSIDE LAB Atrial Lead Polarity Bipolar OTHER OUTSIDE LAB Atrial Lead Pin Connector IS1 OTHER OUTSIDE LAB Atrial Lead MRI Yes OTHER OUTSIDE LAB Conditional Generator Model # ILIVIA 7 DR-T OTHER OUTSIDE LAB Generator Serial # [id number] OTHER OUTSIDE LAB Atrial Lead Diaph. 10 OTHER OUTSIDE LAB Stimulation Initial Rhythm -VS OTHER OUTSIDE LAB -VS% AP 28% OTHER OUTSIDE LAB -BOOSTER PUMP OILER% BOOSTER PUMP OILER 0% OTHER OUTSIDE LAB # High AT/AF Evts 0 OTHER OUTSIDE LAB Time in AT/AF 0.0% of day OTHER OUTSIDE LAB V Rate in AT/AF N/A OTHER OUTSIDE LAB # of VT Events 0 OTHER OUTSIDE LAB # of FVT Events 0 OTHER OUTSIDE LAB # of VF Events 0 OTHER OUTSIDE LAB # of NSVT Events 0 OTHER OUTSIDE LAB Battery Voltage 3.12 V OTHER OUTSIDE LAB Charge Time 9.5 seconds for 40 J OTHER OUTSIDE LAB Defib Lead Imped 75 OTHER OUTSIDE LAB A Sense mv >8.0 OTHER OUTSIDE LAB A Capture V 0.8 OTHER OUTSIDE LAB A Lead ohms 623 OTHER OUTSIDE LAB RV Sense mv 19.0 OTHER OUTSIDE LAB RV Capture V 1.1 OTHER OUTSIDE LAB RV Lead ohms 522 OTHER OUTSIDE LAB Device Function WNL Yes OTHER OUTSIDE LAB Ao Voltage 3.5 OTHER OUTSIDE LAB AO Pulse Width 0.4 OTHER OUTSIDE LAB RV Voltage 3.5 OTHER OUTSIDE LAB RV Pulse Width 0.4 OTHER OUTSIDE LAB Estimated Longevity OK OTHER OUTSIDE LAB Initial Rhythm @ 60-70's bpm (03/16 @ 0135). OTHER OUTSIDE LAB Remote Check? Yes OTHER OUTSIDE LAB Single PVSc Mean PVC 0 per hour OTHER OUTSIDE LAB Narrative Performed At OTHER OUTSIDE LAB Current Monitoring Period: 03/16/18 to 06/15/18. Initial Transmission - No Charge. [04/20/2018 12:20:43 PM - JUHI PATEL] Remote alert received and reviewed.Alert for unsuccessful atrial threshold test. See attached for details. Test EGM does show possible intermittent loss of atrial capture. Ap 30%, Brass Finisher 0%. No other events and this is first time we have received this alert. Implant was 03/02/18. Pt is scheduled to f/u 04/30/18 with ICD check with Ramandeep Sabillon to see about seeing pt prior to this.Pt lives in [facility]. Report to Dr. Figueroa. [03/21/2018 3:33:27 PM - SELENA [facility]OWER] Scheduled Biotronik remote interrogation received on 03/16 and reviewed today. Patient has a dual chamber ICD in place.This is the patients initial transmission s/p generator change. Events noted since 03/05/18: Atrial:None. Ventricular:None. Thoracic impedence is currently turned OFF. Consider turning ON at next visit. Appointment on 04/[address] Sauer with a device evaluation. Assess remote in 3 months. Results routed to Dr. Sauer for review and signature. DB. Performing Organization Address City/State/Zipcode Phone Number OTHER OUTSIDE LAB * DEVICE EVALUATION - ICD (03/04/2018 9:40 PM SENIOR INDUSTRIAL ENGINEER) RV Lead Cabinet Maker [employer] OTHER OUTSIDE LAB RV Lead Model # Plexa ProMRI S 65 OTHER OUTSIDE LAB RV Lead Serial # [id number] OTHER OUTSIDE LAB RV Lead Implant Date 04/18/2017 OTHER OUTSIDE LAB RV Lead Fixation active fixation OTHER OUTSIDE LAB RV Lead Location RV mid septum OTHER OUTSIDE LAB RV Lead Pin Connector ICD IS1 OTHER OUTSIDE LAB RV Lead Coil Single OTHER OUTSIDE LAB Generator Cabinet Maker [employer] OTHER OUTSIDE LAB Generator Implnat Date 03/02/2018 OTHER OUTSIDE LAB Device Type VVI-ICD OTHER OUTSIDE LAB Device Mode DDDR OTHER OUTSIDE LAB Mode Switch Status On OTHER OUTSIDE LAB Lower Rate Limit 60 OTHER OUTSIDE LAB Mode Switch (bpm) 160 OTHER OUTSIDE LAB Upper Rate Limit 130 OTHER OUTSIDE LAB Sensor Rate Limit 120 OTHER OUTSIDE LAB Pace AV Delay 250 OTHER OUTSIDE LAB Sense AV Delay 250 OTHER OUTSIDE LAB VT Monitor 176 OTHER OUTSIDE LAB High A Rate Detect NA OTHER OUTSIDE LAB VT Detect Rate Tx ATP SHOCK OTHER OUTSIDE LAB FVT Detect Rate Tx NA OTHER OUTSIDE LAB VF Detect Rate Tx ATP SHOCK OTHER OUTSIDE LAB VT Detect Rate (bpm) 194 OTHER OUTSIDE LAB FVT Detect Rate (bpm) NA OTHER OUTSIDE LAB VF Detect Rate (bpm) 231 OTHER OUTSIDE LAB High V Rate Detect 176 OTHER OUTSIDE LAB RV Lead Diaph. 10 OTHER OUTSIDE LAB Stimulation Remote Monitoring? Yes OTHER OUTSIDE LAB Date of baseline remote 05/09/17 OTHER OUTSIDE LAB transmission Date of Last Remote Check 02/01/18 OTHER OUTSIDE LAB Next Programming Check 09/2018 OTHER OUTSIDE LAB Due Device Implanted By Todd Sauer MD OTHER OUTSIDE LAB Date of Last Programming 10/17/17 OTHER OUTSIDE LAB Date of Last 10/17/17 OTHER OUTSIDE LAB Interrogation HF Patient No OTHER OUTSIDE LAB EP Device Followed By [facility] OTHER OUTSIDE LAB EP Device Followed by Todd Sauer MD OTHER OUTSIDE LAB Name Known Diagnosed AFib Yes OTHER OUTSIDE LAB On Anticoagulation Yes OTHER OUTSIDE LAB Generator Investigational No OTHER OUTSIDE LAB RV Lead Investigational No OTHER OUTSIDE LAB BITA/EOL Indicator Per transmitter/c programmer OTHER OUTSIDE LAB Wireless Generator Yes OTHER OUTSIDE LAB Daily Hasty Threshld Off OTHER OUTSIDE LAB Alert? Average Venticular Rate Off OTHER OUTSIDE LAB AT/AF On/Off Enrollment Date 04/18/17 OTHER OUTSIDE LAB VF Detection/Therapy Off On OTHER OUTSIDE LAB Remote Monitor Serial# [id number] OTHER OUTSIDE LAB RV Lead MRI Conditional Yes OTHER OUTSIDE LAB Remote Connectivity Cellular adaptor OTHER OUTSIDE LAB Accssory Serial Number CardioMessenger Smart OTHER OUTSIDE LAB Known Diagnosed VT VT No OTHER OUTSIDE LAB ATP No OTHER OUTSIDE LAB Device Shock No OTHER OUTSIDE LAB Device Remote Manual No OTHER OUTSIDE LAB Downloads Next Remote Check Due 05/02/18 OTHER OUTSIDE LAB Atrial Lead Cabinet Maker [employer] OTHER OUTSIDE LAB Atrial Lead Model # PRO MRI SOLIA S 53 OTHER OUTSIDE LAB Atrial Lead Serial # [id number] OTHER OUTSIDE LAB Atrial Lead Implant Date 03/02/2018 OTHER OUTSIDE LAB Atrial Lead No OTHER OUTSIDE LAB Investigational Atrial Lead Fixation active fixation OTHER OUTSIDE LAB Atrial Lead Polarity Bipolar OTHER OUTSIDE LAB Atrial Lead Pin Connector IS1 OTHER OUTSIDE LAB Atrial Lead MRI Yes OTHER OUTSIDE LAB Conditional Generator Model # ILIVIA 7 DR-Zofia OTHER OUTSIDE LAB Generator Serial # [id number] OTHER OUTSIDE LAB Atrial Lead Diaph. 10 OTHER OUTSIDE LAB Stimulation Narrative Performed At OTHER OUTSIDE LAB [facility] Inpatient Check [03/04/2018 9:41:06 PM - [facility] I[facility]] [facility] [employer] next day check. See attached for details. Remote orders entered. Routed to Dr. Figueroa for review/cosign. Performing Organization Address City/State/Zipcode Phone Number OTHER OUTSIDE LAB * EP STUDY (03/02/2018 9:25 PM SENIOR INDUSTRIAL ENGINEER) Narrative Performed At OTHER OUTSIDE LAB ELECTROPHYSIOLOGY PROCEDURE PROCEDURE: Dual chamber Defibrillator Upgrade from aSingle chamber Defibrillator OPERATION PERFORMED: -Left upper extremity venogram -Fluoroscopy of implanted system in situ. -Explantation of Biotronik pulse generator -Testing of retaineddefibrillator lead -Left Axillary venous access -Implantation of RA pacing lead -Implantation of Biotronik dual chamber Defibrillator pulse generator -Defibrillation Threshold Testing not performed ATTENDING SURGEON: Anton Figueroa MD EP FELLOW: Kareem Galarza DO COMPLICATIONS: None. TIME OUT: Time out was completed with verification of the correct patient identity, procedure to be performed, procedure site and implanted equipment. Preoperative diagnosis: NICM, hx cardiac arrest and single chamber ICD placement, hx of afib ablation Postoperative diagnosis: same, now s/p RA lead addition and upgrade from single chamber ICD to dual chamber ICD Estimated blood loss: 8 mL PROCEDURE AND FINDINGS:Informed consent was given prior to the procedure and confirmed.Intravenous prophylactic antibiotics were administered prior to the procedure. After the site of implantation was prepped and draped in the usual sterile fashion and after adequate anesthesia was given, the skin was infiltrated with local anesthetic.The skin was incised with a #10 scalpel over the prior scar. Blunt and electrosurgical dissection was carried out to the pulse generator pocket.The pocket tissue appeared healthy without gross evidence of infection.The lead and generator were carefully isolated with blunt and electrosurgical dissection.Careful attention was paid not to damage the lead.A left upper extremity venogram was performed after accessing the pocket.This demonstrated patent vasculature without occlusion. ACCESS Once adequate hemostasis was confirmed within the pocket, venous access was obtained.Theaxillary vein was accessed via Seldinger technique underunder fluoroscopic and venogram guidance.J tip 0.035 inch guide wire was introduced and its course throught the venous system was confirmed by its presence under fluoroscopy in the inferior vena. RA lead addition A short 6-Fr sheath was inserted over a wire into the venous system and the RA lead was advanced through the sheath to the RA appendage where the helix was extended. Adequate sensing and threshold parameters were obtained.There was no evidence of diaphragmatic stimulation at 10 V output. The peel-away sheath was removed and the lead collar was advanced to the pectoral muscle and sutured with 2-0 Ethibondsuture.The length of the lead's slack was assesed as optimal with fluoroscopy. The existing pulse generator was explanted and the RV ICD lead was detached from the pulse generator.The lead was tested for adequate sensing, impedances and pacing thresholds.The leads were cleaned and dried thoroughly then attached to the appropriate ports on the new pulse generator.Tug testing was perfomed on all connections.The pocket was copiously irrigated with normal saline containing antibiotics and subsequently observed.Once adequate hemostasis was confirmed within the pocket, the device and leads were placed withinthe pocket such that the coiled redundant leads were posterior to the pulse generator.Once again, the device was tested for adequate sensing, impedances and pacing thresholds. The pocket was closed in 3 layers with continuous 2-0 Vicryl and continuous 4-0 Monocryl. Steri-Strips were then applied over the incision followed by a sterile dressing. he tolerated the procedure well. SEDATION: I was personally responsible for the administration of moderate sedation services during the procedure performed and I confirm requirements described in CPT section on moderate sedation were followed, including the use of an independent trained observer who had no other duties during the procedure. After providing fentanyl and midazolam, we achieved moderate conscious sedation, which was maintained throughout the procedure. The hemodynamic parameters, respiratory parameters, as well as neurological status was monitored throughout the procedure by the laborer tree tapping staff and myself. The total [id number] time was 44 minutes (2010 to 2054). CONTRAST: 15 mL CONCLUSION:Succesful dual chamber Defibrillator Upgrade from aSingle chamber Defibrillator RECOMMENDATIONS: -Please do not give any heparin products for at least 72 hours s/p device implantation -PA/Lateral CXR in the morning to confirm lead placement and rule-out pneumothorax -ANTIBIOTICS:IV antibiotics with Ancef IV x 1 dose overnight then oral Keflex or Clindamycin if the patient has PCN allergy x 3 days -Anticoagulation: Eliquis -Incision Check in one week at the Device Clinic. ICD REGISTRY .ejectionfractionlast Primary or Secondary Indication for ICD Secondary Patient has been on maximum dose guideline directed medical therapy for at least 3 months. If not, document reason why. History of Cardiac arrest yes Coronary angiogram performed post cardiac arrest Yes NYHA Functional Class II Family history of Non-Ischemic Cardiomyopathy no Family history of SCD no History of Ventricular Tachycardia Type of VT VT occurred post cardiac surgery w/in 48 hours Bradycardia dependent Reversible cause Hemodynamically unstable during VT Indication for Pacing If yes to the question above, anticipate need for >40% RV pacing? Not applicable Principal indication for atrial lead Arrhythmia discrimination and/or atrial pacing to reduce ventricular arrhythmias History of PSVT (includes: AVNRT, ATACH, AVRT, AFL, or other SVT but does NOT include atrial fibrillation) no Performing Organization Address City/State/Zipcode Phone Number OTHER OUTSIDE LAB * EP DEVICE (03/02/2018 9:25 PM SENIOR INDUSTRIAL ENGINEER) RV Lead Cabinet Maker [employer] OTHER OUTSIDE LAB RV Lead Model # Plexa ProMRI S 65 OTHER OUTSIDE LAB RV Lead Serial # [id number] OTHER OUTSIDE LAB RV Lead Implant Date 04/18/2017 OTHER OUTSIDE LAB RV Lead Fixation active fixation OTHER OUTSIDE LAB RV Lead Location RV mid septum OTHER OUTSIDE LAB RV Lead Pin Connector ICD IS1 OTHER OUTSIDE LAB RV Lead Coil Single OTHER OUTSIDE LAB Generator Cabinet Maker [employer]ik OTHER OUTSIDE LAB Generator Implnat Date 03/02/2018 OTHER OUTSIDE LAB Device Type VVI-ICD OTHER OUTSIDE LAB Device Mode DDDR OTHER OUTSIDE LAB Mode Switch Status On OTHER OUTSIDE LAB Lower Rate Limit 60 OTHER OUTSIDE LAB Mode Switch (bpm) 160 OTHER OUTSIDE LAB Upper Rate Limit 130 OTHER OUTSIDE LAB Sensor Rate Limit 120 OTHER OUTSIDE LAB Pace AV Delay 250 OTHER OUTSIDE LAB Sense AV Delay 250 OTHER OUTSIDE LAB VT Monitor 176 OTHER OUTSIDE LAB High A Rate Detect NA OTHER OUTSIDE LAB VT Detect Rate Tx ATP SHOCK OTHER OUTSIDE LAB FVT Detect Rate Tx NA OTHER OUTSIDE LAB VF Detect Rate Tx ATP SHOCK OTHER OUTSIDE LAB VT Detect Rate (bpm) 194 OTHER OUTSIDE LAB FVT Detect Rate (bpm) NA OTHER OUTSIDE LAB VF Detect Rate (bpm) 231 OTHER OUTSIDE LAB High V Rate Detect 176 OTHER OUTSIDE LAB RV Lead Diaph. 10 OTHER OUTSIDE LAB Stimulation Remote Monitoring? Yes OTHER OUTSIDE LAB Date of baseline remote 05/09/17 OTHER OUTSIDE LAB transmission Date of Last Remote Check 02/01/18 OTHER OUTSIDE LAB Next Programming Check 09/2018 OTHER OUTSIDE LAB Due Device Implanted By Todd Sauer MD OTHER OUTSIDE LAB Date of Last Programming 10/17/17 OTHER OUTSIDE LAB Date of Last 10/17/17 OTHER OUTSIDE LAB Interrogation HF Patient No OTHER OUTSIDE LAB EP Device Followed By MAC OTHER OUTSIDE LAB EP Device Followed by Todd Sauer MD OTHER OUTSIDE LAB Name Known Diagnosed AFib Yes OTHER OUTSIDE LAB On Anticoagulation Yes OTHER OUTSIDE LAB Generator Investigational No OTHER OUTSIDE LAB RV Lead Investigational No OTHER OUTSIDE LAB BITA/EOL Indicator Per transmitter/c programmer OTHER OUTSIDE LAB Wireless Generator Yes OTHER OUTSIDE LAB Daily Hasty Threshld Off OTHER OUTSIDE LAB Alert? Average Venticular Rate Off OTHER OUTSIDE LAB AT/AF On/Off Enrollment Date 04/18/17 OTHER OUTSIDE LAB VF Detection/Therapy Off On OTHER OUTSIDE LAB Remote Monitor Serial# [id number] OTHER OUTSIDE LAB RV Lead MRI Conditional Yes OTHER OUTSIDE LAB Remote Connectivity Cellular adaptor OTHER OUTSIDE LAB Accssory Serial Number CardioMessenger Smart OTHER OUTSIDE LAB Known Diagnosed VT VT No OTHER OUTSIDE LAB ATP No OTHER OUTSIDE LAB Device Shock No OTHER OUTSIDE LAB Device Remote Manual No OTHER OUTSIDE LAB Downloads Next Remote Check Due 05/02/18 OTHER OUTSIDE LAB Atrial Lead Cabinet Maker [employer]ik OTHER OUTSIDE LAB Atrial Lead Model # PRO MRI SOLIA S 53 OTHER OUTSIDE LAB Atrial Lead Serial # [id number] OTHER OUTSIDE LAB Atrial Lead Implant Date 03/02/2018 OTHER OUTSIDE LAB Atrial Lead No OTHER OUTSIDE LAB Investigational Atrial Lead Fixation active fixation OTHER OUTSIDE LAB Atrial Lead Polarity Bipolar OTHER OUTSIDE LAB Atrial Lead Pin Connector IS1 OTHER OUTSIDE LAB Atrial Lead MRI Yes OTHER OUTSIDE LAB Conditional EP Generator Explant Biotronik OTHER OUTSIDE LAB Explanted Generator Ilivia 7 VR-T DF4 OTHER OUTSIDE LAB Model# EXPLANTED GENERATOR [id number] OTHER OUTSIDE LAB SERIAL# Generator Model # ILIVIA 7 DR-T OTHER OUTSIDE LAB Generator Serial # [id number] OTHER OUTSIDE LAB A Sense mv 4.5 OTHER OUTSIDE LAB A Capture V 0.5 OTHER OUTSIDE LAB A Capture ms 0.4 OTHER OUTSIDE LAB A Lead ohms 565 OTHER OUTSIDE LAB Ao Voltage 3.5 OTHER OUTSIDE LAB AO Pulse Width 0.4 OTHER OUTSIDE LAB Atrial Lead Diaph. 10 OTHER OUTSIDE LAB Stimulation RV Sense mv 24.0 OTHER OUTSIDE LAB RV Capture V 0.8 OTHER OUTSIDE LAB RV Capture ms 0.4 OTHER OUTSIDE LAB RV Lead ohms 536 OTHER OUTSIDE LAB RV Voltage 3.5 OTHER OUTSIDE LAB RV Pulse Width 0.4 OTHER OUTSIDE LAB Rate Response On OTHER OUTSIDE LAB Narrative Performed At OTHER OUTSIDE LAB ELECTROPHYSIOLOGY PROCEDURE PROCEDURE: Dual chamber Defibrillator Upgrade from aSingle chamber Defibrillator OPERATION PERFORMED: -Left upper extremity venogram -Fluoroscopy of implanted system in situ. -Explantation of Biotronik pulse generator -Testing of retaineddefibrillator lead -Left Axillary venous access -Implantation of RA pacing lead -Implantation of Biotronik dual chamber Defibrillator pulse generator -Defibrillation Threshold Testing not performed ATTENDING SURGEON: Anton Figueroa MD EP FELLOW: Kareem Galarza DO COMPLICATIONS: None. TIME OUT: Time out was completed with verification of the correct patient identity, procedure to be performed, procedure site and implanted equipment. Preoperative diagnosis: NICM, hx cardiac arrest and single chamber ICD placement, hx of afib ablation Postoperative diagnosis: same, now s/p RA lead addition and upgrade from single chamber ICD to dual chamber ICD Estimated blood loss: 8 mL PROCEDURE AND FINDINGS:Informed consent was given prior to the procedure and confirmed.Intravenous prophylactic antibiotics were administered prior to the procedure. After the site of implantation was prepped and draped in the usual sterile fashion and after adequate anesthesia was given, the skin was infiltrated with local anesthetic.The skin was incised with a #10 scalpel over the prior scar. Blunt and electrosurgical dissection was carried out to the pulse generator pocket.The pocket tissue appeared healthy without gross evidence of infection.The lead and generator were carefully isolated with blunt and electrosurgical dissection.Careful attention was paid not to damage the lead.A left upper extremity venogram was performed after accessing the pocket.This demonstrated patent vasculature without occlusion. ACCESS Once adequate hemostasis was confirmed within the pocket, venous access was obtained.Theaxillary vein was accessed via Seldinger technique underunder fluoroscopic and venogram guidance.J tip 0.035 inch guide wire was introduced and its course throught the venous system was confirmed by its presence under fluoroscopy in the inferior vena. RA lead addition A short 6-Fr sheath was inserted over a wire into the venous system and the RA lead was advanced through the sheath to the RA appendage where the helix was extended. Adequate sensing and threshold parameters were obtained.There was no evidence of diaphragmatic stimulation at 10 V output. The peel-away sheath was removed and the lead collar was advanced to the pectoral muscle and sutured with 2-0 Ethibondsuture.The length of the lead's slack was assesed as optimal with fluoroscopy. The existing pulse generator was explanted and the RV ICD lead was detached from the pulse generator.The lead was tested for adequate sensing, impedances and pacing thresholds.The leads were cleaned and dried thoroughly then attached to the appropriate ports on the new pulse generator.Tug testing was perfomed on all connections.The pocket was copiously irrigated with normal saline containing antibiotics and subsequently observed.Once adequate hemostasis was confirmed within the pocket, the device and leads were placed withinthe pocket such that the coiled redundant leads were posterior to the pulse generator.Once again, the device was tested for adequate sensing, impedances and pacing thresholds. The pocket was closed in 3 layers with continuous 2-0 Vicryl and continuous 4-0 Monocryl. Steri-Strips were then applied over the incision followed by a sterile dressing. he tolerated the procedure well. SEDATION: I was personally responsible for the administration of moderate sedation services during the procedure performed and I confirm requirements described in CPT section on moderate sedation were followed, including the use of an independent trained observer who had no other duties during the procedure. After providing fentanyl and midazolam, we achieved moderate conscious sedation, which was maintained throughout the procedure. The hemodynamic parameters, respiratory parameters, as well as neurological status was monitored throughout the procedure by the laborer tree tapping staff and myself. The total [id number] time was 44 minutes (2010 to 2054). CONTRAST: 15 mL CONCLUSION:Succesful dual chamber Defibrillator Upgrade from aSingle chamber Defibrillator RECOMMENDATIONS: -Please do not give any heparin products for at least 72 hours s/p device implantation -PA/Lateral CXR in the morning to confirm lead placement and rule-out pneumothorax -ANTIBIOTICS:IV antibiotics with Ancef IV x 1 dose overnight then oral Keflex or Clindamycin if the patient has PCN allergy x 3 days -Anticoagulation: Eliquis -Incision Check in one week at the Device Clinic. ICD REGISTRY .ejectionfractionlast Primary or Secondary Indication for ICD Secondary Patient has been on maximum dose guideline directed medical therapy for at least 3 months. If not, document reason why. History of Cardiac arrest yes Coronary angiogram performed post cardiac arrest Yes NYHA Functional Class II Family history of Non-Ischemic Cardiomyopathy no Family history of SCD no History of Ventricular Tachycardia Type of VT VT occurred post cardiac surgery w/in 48 hours Bradycardia dependent Reversible cause Hemodynamically unstable during VT Indication for Pacing If yes to the question above, anticipate need for >40% RV pacing? Not applicable Principal indication for atrial lead Arrhythmia discrimination and/or atrial pacing to reduce ventricular arrhythmias History of PSVT (includes: AVNRT, ATACH, AVRT, AFL, or other SVT but does NOT include atrial fibrillation) no Performing Organization Address City/State/Zipcode Phone Number OTHER OUTSIDE LAB * TELEMETRY STRIPS-SCAN (03/02/2018 12:00 AM SENIOR INDUSTRIAL ENGINEER) Narrative Performed At Ordered by an unspecified provider. * ECG-SCAN (03/02/2018 12:00 AM SENIOR INDUSTRIAL ENGINEER) Narrative Performed At Ordered by an unspecified provider. * ECG-SCAN (02/26/2018 12:00 AM SENIOR INDUSTRIAL ENGINEER) Narrative Performed At Ordered by an unspecified provider. * ECG-SCAN (02/15/2018 4:10 PM SENIOR INDUSTRIAL ENGINEER) Narrative Performed At Ordered by an unspecified provider. * ECG-SCAN (02/15/2018 4:10 PM SENIOR INDUSTRIAL ENGINEER) Narrative Performed At Ordered by an unspecified provider. from Last 3 Months Insurance Payer Benefit Subscriber ID Type Phone Address Plan / Group [employer] [place] [employer] xxxxxxxxxxx Medicaid [employer] Advance Directives Patient has advance care planning documents, and code status on file. For more information, please contact: [facility] [address] [place] [address] Date Inactivated Comments Code Status Date Activated 04/24/2018 10:15 PM Full Code 04/24/2018 11:51 AM Provider has discussed Code Status No, discussion not w/Patient or Family? necessary based on Dx 03/03/2018 12:38 PM Full Code 03/02/2018 11:31 AM Provider has discussed Code Status No, discussion not w/Patient or Family? necessary based on Dx 11/02/2017 11:47 AM Full Code 11/01/2017 12:49 PM Provider has discussed Code Status No, more discussion w/Patient or Family? needed 10/03/2017 3:06 PM Full Code 09/29/2017 6:00 AM Provider has discussed Code Status Yes w/Patient or Family? 05/25/2017 2:22 PM Full Code 05/03/2017 1:41 PM Provider has discussed Code Status Yes w/Patient or Family?
--- OUTSIDE RECORDS SUMMARY | 2018-05-09 17:57 | XMS REPORT | Encounter Summary ---
Author Author [facility] Address Unknown Phone Unavailable Care Team Providers Care Hemodialysis Lab Technician Name Role Phone Erum Foreman MD PCP Erum Foreman MD 100 Reason for Visit * Reason Comments Medication Refill Encounter Details Care Team Description Date Type Department Boo Signh MD [address] [phone] 03/29/2018 Refill [facility] [place] [id number] [address] [place], [place] [id number] Social History Date Tobacco Use Types Packs/Day [...]
--- OUTSIDE RECORDS SUMMARY | 2018-05-09 17:57 | XMS REPORT | Encounter Summary ---
Author Author [facility] Organization [facility] Address Unknown Phone Unavailable Care Team Providers Care Digitizer Name Role Phone Erum Foreman MD PCP Erum Foreman MD 100 Reason for Visit * Reason Comments Fatigue Encounter Details Care Team Description Date Type Department Erum Foreman MD [address] [place] [address] Fatigue 04/20/2018 Telephone [facility] - Internal Medicine [address] [facility] [place] [address] Social History Date Tobacco Use Types Packs/Day [...] encounter Miscellaneous Notes * Telephone Encounter - Deborah Montgomery MA - 04/20/2018 2:28 PM DRUG ABUSE TREATMENT SPECIALIST Labs ordered per Dr. Foreman. ABUSE TREATMENT SPECIALIST * Telephone Encounter - Deborah Montgomery MA - 04/20/2018 9:50 AM DRUG ABUSE TREATMENT SPECIALIST Patient's "caregiver" called stating that the patient is having bad fatigue. This is not something new as it has been going on for a while. It does not happen all the time and is just in the mornings. The caregiver said she thinks he has a vitamin or thyroid problem and she says he needs testing for that, all his vitamin levels and thyroid numbers. Advised I would let Dr. Foreman know and she can decide what the patient needs. ABUSE TREATMENT SPECIALIST in this encounter Plan of Treatment Order Schedule Name Priority Associated Diagnoses Expected: 04/21/2018 (Approximate), Expires: 04/20/2019 TSH WITH FREE T4 REFLEX Routine Fatigue, unspecified type Expected: 04/20/2018 (Approximate), Expires: 04/20/2019 25-OH VITAMIN D (D2 + D3) Routine Fatigue, unspecified type Expected: 04/20/2018 (Approximate), Expires: 04/20/2019 VITAMIN B12 Routine Fatigue, unspecified type as of this encounter Visit Diagnoses Diagnosis Fatigue, unspecified type - Primary in this encounter
--- OUTSIDE RECORDS SUMMARY | 2018-05-09 17:57 | XMS REPORT | Encounter Summary ---
Author Author [facility] Organization [facility] Address Unknown Phone Unavailable Care Team Providers Care Legal Document Specialist Name Role Phone Erum Foreman MD PCP Erum Foreman MD 100 Encounter Details Care Team Description Date Type Department Gita Hartley RN [phone] ICD (implantable cardioverter-defibrillator) lead failure, initial encounter (Primary Dx) 04/20/2018 Prep for [facility] Cardiovascular Medicine [facility] [place] [address] [place] [address] [phone] [place] [address] Social History Date Tobacco Use Types Packs/Day [...] on fileas of this encounter Visit Diagnoses Diagnosis ICD (implantable cardioverter-defibrillator) lead failure, initial encounter - Primary in this encounter
--- OUTSIDE RECORDS SUMMARY | 2018-05-09 17:57 | XMS REPORT | Encounter Summary ---
Author Author [facility] Organization [facility] Address Unknown Phone Unavailable Care Team Providers Care Dynamicist Name Role Phone Erum Foreman MD PCP Erum Foreman MD 100 Reason for Visit * Reason Comments Order Follow Up CXR pre procedure tomorrow Encounter Details Care Team Description Date Type Department Gita Hartley RN [phone] Order Follow Up (CXR pre procedure tomorrow) 04/23/2018 Documentation Cardiovascular Medicine [facility] [place] [facility] [place] [phone] [place] [address] Social History Date Tobacco Use Types Packs/Day [...] fileas of this encounter Visit Diagnoses Diagnosis Failure of implantable cardioverter-defibrillator (ICD) lead, initial encounter - Primary in this encounter
--- OUTSIDE RECORDS SUMMARY | 2018-05-09 17:57 | XMS REPORT | Encounter Summary ---
Author Author [facility] Organization [facility] Address Unknown Phone Unavailable Care Team Providers Care Bobbin Trucker Name Role Phone Erum Foreman MD PCP Erum Foreman MD 100 Reason for Visit * Auth/Cert Referred By Contact Referred To Contact Status Reason Specialty Diagnoses / Procedures Diagnoses ICD (implantable cardioverter-defib rillator) lead failure, initial encounter ICD (implantable cardioverter-defib rillator) lead failure, initial encounter [T82.110A] P rocedures DE RPSG PREV IMPLTED PM/DFB R ATR/R VENTR ELECTRODE REVISION IMPLANTED PACEMAKER/ DEFIBRILLATOR RIGHT ATRIAL/ VENTRICULAR LEAD Encounter Details Care Team Description Date Type Department Anton Figueroa MD [address] [address] [phone] 04/24/2018 Hospital Cardiovascular Medicine Encounter [place] [address] [address] [place] [address] Social History Date Tobacco Use Types Packs/Day [...] cognitive impairment: Yes as of this encounter Medications at Time of Discharge Start Date End Date Medication Sig Dispensed Refills 11/17/2017 apixaban (ELIQUIS) 5 mg Take 1 tablet 60 tablet 11 tablet by mouth twice daily. 05/25/2017 magnesium oxide (MAG-OX) Take 1 tablet 180 tablet 3 400 mg tablet by mouth twice daily. 10/17/2017 metoprolol XL (TOPROL XL) Take one 90 tablet 3 50 mg extended release tablet by tabletIndications: PAF mouth daily. (paroxysmal atrial fibrillation) (HCC) 12/19/2017 sacubitril/valsartan Take one 180 tablet 3 (ENTRESTO) 24/26 mg tablet by tablet mouth twice daily. 10/03/2017 senna/docusate Take 2 30 tablet 0 (SENOKOT-S) 8.6/50 mg tablets by tablet mouth twice daily. 11/30/2017 sertraline (ZOLOFT) 50 mg Take one 90 tablet 1 tablet tablet by mouth daily. 04/04/2018 05/03/[address] Take one 90 tablet 1 (PROTONIX) 40 mg tablet tablet by mouth twice daily. as of this encounter Plan of Treatment Not on fileas of this encounter Procedures Comments Procedure Name Priority Date/Time Associated Diagnosis DEVICE EVALUATION - ICD Routine 04/24/2018 5:46 PM TILLER MAN in this encounter Visit Diagnoses Not on filein this encounter
--- OUTSIDE RECORDS SUMMARY | 2018-05-09 17:57 | XMS REPORT | Encounter Summary ---
Author Author [facility] Organization [facility] Address Unknown Phone Unavailable Care Team Providers Care Urologist Physician Name Role Phone Erum Foreman MD PCP Erum Foreman MD 100 Reason for Visit * Auth/Cert Referred By Contact Referred To Contact Status Reason Specialty Diagnoses / Procedures Diagnoses ICD (implantable cardioverter-defib rillator) lead failure, initial encounter ICD (implantable cardioverter-defib rillator) lead failure, initial encounter [T82.110A] P rocedures [place] RPSG PREV IMPLTED PM/DFB R ATR/R VENTR ELECTRODE REVISION IMPLANTED PACEMAKER/ DEFIBRILLATOR RIGHT ATRIAL/ VENTRICULAR LEAD Encounter Details Care Team Description Date Type Department Anton Figueroa MD [address] [facility] [place] [address] [phone] Atrial pacemaker lead displacement 04/24/2018 Hospital Cardiac Catheterization Encounter Laboratory [address] [place], [place] [id number] Social History Date Tobacco Use Types Packs/Day Years Used Never Smoker Smokeless Tobacco: Never Used Alcohol Use Drinks/Week oz/Week Comments No Sex Assigned at Date Recorded Not on file Industry Job Start Date Occupation Not on file Not on file Not on file Travel End Travel History Travel Start No recent travel history available. as of this encounter Last Filed Vital Signs Time Taken Vital Sign Reading 04/24/2018 4:00 PM LOG FEEDER Blood Pressure 115/65 04/24/2018 4:00 PM LOG FEEDER Pulse 75 04/24/2018 12:25 PM LOG FEEDER Temperature 36.8 C (98.2 F) - Respiratory Rate - 04/24/2018 4:00 PM LOG FEEDER Oxygen Saturation 98% - Inhaled Oxygen - Concentration 04/24/2018 12:25 PM LOG FEEDER Weight 99 kg (218 lb 4.1 oz) 04/24/2018 12:25 PM LOG FEEDER Height 162.6 cm (5' 4") 04/24/2018 12:25 PM LOG FEEDER Body Mass Index 37.46 in this encounter Functional Status Date of Assessment [...] mouth twice daily. as of this encounter Progress Notes * Josette Ocasio RN - 04/24/2018 8:01 PM LOG FEEDER Pt's IV and tele removed. No discharge orders needed as pt did not have procedure. Pt walked off unit with father. FEEDER * Charity Lucio PA-C - 04/24/2018 5:08 PM LOG FEEDER Pt's lead revision procedure was cancelled today. Device interogation showed Atrial pacing and sensing appropriately. His Cxray is stable with same lead redundancy compared to 03/03/18. Dr. Figueroa spoke with the patient and his father. Cancelled 04/30/18 OV with Ramandeep Melendez/Device check. Follow up with Dr Sauer on 07/20/18 as previously scheduled. Charity Lucio PA-c [id number] FEEDER * Arnol Hernandez RN - 04/24/2018 1:32 PM LOG FEEDER Pt back from x-ray FEEDER * Annette Webb RN - 04/24/2018 11:51 AM LOG FEEDER Patient arrived on unit via ambulation accompanied by family. Patient transferred to the bed without assistance. Frailty score equals 3 Assessment completed, refer to flowsheet for details. Orders released, reviewed, and implemented as appropriate. Oriented to surroundings, call light within reach. Plan of care reviewed. Will continue to monitor and assess. FEEDER in this encounter Plan of Treatment Not on fileas of this encounter Procedures Comments Procedure Name Priority Date/Time Associated Diagnosis DEVICE EVALUATION - ICD Routine 04/24/2018 5:46 PM LOG FEEDER CHEST 2 VIEWS Routine 04/24/2018 1:29 PM LOG FEEDER ECG 12-LEAD Routine 04/24/2018 12:42 PM LOG FEEDER ECG-SCAN 04/24/2018 12:00 AM LOG FEEDER in this encounter Results * DEVICE EVALUATION - ICD (04/24/2018 5:46 PM LOG FEEDER) RV Lead Manager [email or web address] OTHER OUTSIDE LAB RV Lead Model # [...] Lead Coil Single OTHER OUTSIDE LAB Generator Manager [employer] OTHER OUTSIDE LAB Generator Implnat Date [...] No OTHER OUTSIDE LAB BITA/EOL Indicator Per transmitter/client server programmer OTHER OUTSIDE LAB Wireless Generator Yes OTHER OUTSIDE LAB Daily Osmond Threshld Off OTHER OUTSIDE LAB Alert? Average Venticular Rate Off OTHER OUTSIDE LAB AT/AF On/Off Enrollment Date 04/18/17 OTHER OUTSIDE LAB VF Detection/Therapy Off On OTHER OUTSIDE LAB Remote Monitor Serial# [id number] OTHER OUTSIDE LAB RV Lead MRI Conditional Yes OTHER OUTSIDE LAB Remote Connectivity Cellular adaptor OTHER OUTSIDE LAB Accssory Serial Number [employer] Smart OTHER OUTSIDE LAB Known Diagnosed VT VT No OTHER OUTSIDE LAB ATP No OTHER OUTSIDE LAB Device Shock No OTHER OUTSIDE LAB Device Remote Manual No OTHER OUTSIDE LAB Downloads Next Remote Check Due 06/15/18 OTHER OUTSIDE LAB Atrial Lead Manager [employer] OTHER OUTSIDE LAB Atrial Lead Model # PRO MRI SOLIA S 53 OTHER OUTSIDE LAB Atrial Lead Serial # [id number] OTHER OUTSIDE LAB Atrial Lead Implant Date [...] - JOSÉ MIGUEL KAM] Device checked by [employer] device rep: - RA lead procedure cancelled. - turned ON T.I. Please see attached HRM data sheet for > detail as needed. Routed to Dr Figueroa for co-sign. Performing Organization Address City/State/Zipcode Phone Number OTHER OUTSIDE LAB * CHEST 2 VIEWS (04/24/2018 1:29 PM LOG FEEDER) Impressions Performed At Indwelling cardiac conduction device [...] Interface, Radiant Results - 04/24/2018 2:38 PM LOG FEEDER Procedure: CHEST 2 VIEWS Clinical Indication: Right [...] RAD RESULTS * ECG-SCAN (04/24/2018 12:00 AM LOG FEEDER) Narrative Performed At Ordered by an unspecified provider. in this encounter Visit Diagnoses Diagnosis ICD (implantable cardioverter-defibrillator) lead failure, initial encounter in this encounter Administered Medications Action Date Dose Rate Site Medication Order MAR Action acetaminophen (TYLENOL) tablet 650 mg 650 mg, Oral, EVERY 4 HOURS PRN, Starting 04/24/18 at 1150, Until 04/24/18 at 2210, Pain non-opioid: may be used alone or in combination with opioid analgesia, TOTAL ACETAMINOPHEN DOSE NOT TO EXCEED 4GM DAILY, Admission/Obs/Extended Recovery lidocaine PF 1% (10 mg/mL) injection 0.1-2 mL 0.1-2 mL, Injection, NEEDED, Starting 04/24/18 at 1150, Until 04/24/18 at 2210, Other..., for peripheral IV insertion, Pre-Op milk of magnesia (CONC) oral suspension 10 mL 10 mL, Oral, EVERY 6 HOURS PRN, Starting 04/24/18 at 1150, Until 04/24/18 at 2210, Constipation PO, 10 mL CONC=30 mL MOM., Admission/Obs/Extended Recovery in this encounter
--- OUTSIDE RECORDS SUMMARY | 2018-05-09 17:57 | XMS REPORT | Encounter Summary ---
Author Author [facility] Organization [facility] Address Unknown Phone Unavailable Care Team Providers Care Supervisor [employer] Name Role Phone Erum Foreman MD PCP Erum Foreman MD 100 Reason for Visit * Reason Comments Other Remote alert for RA lead issue Encounter Details Care Team Description Date Type Department Val Meza RN Other (Remote alert for RA lead issue) 04/20/2018 Telephone Cardiovascular Medicine [place] [address] [address] [place] [address] Social History Date Tobacco Use [...] Telephone Encounter - Val Meza RN - 04/20/2018 4:50 PM COOLING TOWER OPERATOR Patient will proceed with chest xray and lead revision on 04/24/18 with MPE. Route to his team for further instructions. ING TOWER OPERATOR * Telephone Encounter - Val Meza RN - 04/20/2018 3:03 PM COOLING TOWER OPERATOR ----- Message from Jazmyne Cuadra RN sent at 04/20/2018 2:58 PM COOLING TOWER OPERATOR ----- Regarding: FW: possible A lead capture issue Could you please f/u with pt on this? Possible A lead issue per remote. See Ramandeep note below. ----- Message ----- From: Ramandeep Melendez APRN-NP Sent: 04/20/2018 2:13 PM To: Gita Hartley RN, Jazmyne Cuadra RN, # Subject: RE: possible A lead capture issue I think we can wait until 04/30/18. I would have him undergo CXR at prior to his office visit with me and make sure he is NPO when he gets here. He should bring an overnight bag. He had loss of redundancy on RA lead on the POD#1 CXR and I suspect that lead will need to be revised. I don't think we need to bring him in any sooner unless the pt wants to be seen sooner. I don't think he is at risk for harm from keli arrhythmia based on his current programming. Let me know if you have any other concerns that I am not thinking of. Thank you !! Ramandeep ----- Message ----- From: Jazmyne Cuadra RN Sent: 04/20/2018 12:34 PM To: PARAMJIT Olson Subject: possible A lead capture issue See addendum to last remote. Scheduled to see you on 04/30. Lives in [place]. We can check website on monday to see if we can assess capture mgmt. He doesn 't pace much and A sensing appears ok. You ok to wait to see or do you/ MPE have any options sooner? ING TOWER OPERATOR in this encounter Plan of Treatment Order Schedule Name Priority Associated Diagnoses Expected: 04/30/2018, Expires: 04/20/2019 CHEST 2 VIEWS Routine Nonischemic cardiomyopathy (HCC) as of this encounter Visit Diagnoses Diagnosis Nonischemic cardiomyopathy (HCC) - Primary Other primary cardiomyopathies in this encounter
--- OUTSIDE RECORDS SUMMARY | 2018-05-09 17:57 | XMS REPORT | Encounter Summary ---
Author Author [facility] Organization [facility] Address Unknown Phone Unavailable Care Team Providers Care C4 Planner Name Role Phone Erum Foreman MD PCP Erum Foreman MD 100 Encounter Details Care Team Description Date Type Department Thalia Roper APRN [address] [facility] [place] [address] [phone] 04/23/2018 Pre-Admit XDD CARDIOLOGY Orders Only Social History Date Tobacco Use Types Packs/Day [...]
--- OUTSIDE RECORDS SUMMARY | 2018-05-09 17:57 | XMS REPORT | Encounter Summary ---
Author Author [facility] Organization [facility] Address Unknown Phone Unavailable Care Team Providers Care Music Store Manager Name Role Phone Erum Foreman MD PCP Erum Foreman MD 100 Encounter Details Care Team Description Date Type Department Rick Nita PAF (paroxysmal atrial fibrillation) (HCC) 04/23/2018 Orders Only Cardiovascular Medicine [address] [place] [phone] Social History Date Tobacco Use Types Packs/Day [...] Comments Procedure Name Priority Date/Time Associated Diagnosis CBC Routine 04/21/2018 PAF (paroxysmal atrial fibrillation) (HCC) MAGNESIUM Routine 04/21/2018 PAF (paroxysmal atrial fibrillation) (HCC) BASIC METABOLIC PANEL Routine 04/21/2018 PAF (paroxysmal atrial fibrillation) (HCC) in this encounter Results * BASIC METABOLIC PANEL (04/21/2018) Sodium 137 [facility] Potassium 3.9 [facility] Chloride 102 [facility] CO2 25 [facility] Blood Urea Nitrogen 12 [facility] Creatinine 0.85 [facility] Glucose 92 [facility] Calcium 9.0 [facility] eGFR Non >60 [facility] eGFR >60 [facility] Anion Gap 10 [facility] Specimen Blood - Blood Narrative Performed At Performing Organization Address City/State/Zipcode Phone Number [facility] [address] [address] [place] * CBC (04/21/2018) White Blood Cells 8.7 [facility] RBC 4.97 [facility] Hemoglobin 13.8 [facility] Hematocrit 41 [facility] MCV [facility] MCH [facility] MCHC [facility] Platelet Count 248 [facility] MPV [facility] RDW [facility] Specimen Blood - Blood Narrative Performed At Performing Organization Address City/State/Zipcode Phone Number [facility] [address] [address] [place] * MAGNESIUM (04/21/2018) Magnesium 2.1 [facility] Specimen Blood - Blood Narrative Performed At Performing Organization Address City/State/Zipcode Phone Number [facility] [address] [phone] [place] in this encounter Visit Diagnoses Diagnosis PAF (paroxysmal atrial fibrillation) (HCC) Atrial fibrillation in this encounter
--- OUTSIDE RECORDS SUMMARY | 2018-05-09 17:57 | XMS REPORT | Encounter Summary ---
Author Author [facility] Organization [facility] Address Unknown Phone Unavailable Care Team Providers Care Resident Care Associate Name Role Phone rEum Foreman MD PCP Erum Foreman MD 100 Reason for Visit * Reason Comments Precertification Approval for ICD Lead Revision through [facility] Encounter Details Care Team Description Date Type Department José Jett RN Precertification (Approval for ICD Lead Revision through [facility]) 04/20/2018 Documentation Cardiovascular Medicine [facility] [place] [address] Social History Date Tobacco Use Types Packs/Day [...] cognitive impairment: Yes as of this encounter Progress Notes * José Jett RN - 04/20/2018 4:22 PM GREEN BUILDING ENERGY ENGINEER The AVRU with [facility], , confirmed benefits and eligibility: Patient is enrolled and the plan is active. The plan will pay 100 % of allowable charges per [place] Medicaid Guidelines. No pre-certification is required for ICD Lead Revision 52261 according to Related Content Database (RCDb) website prior auth search engine. Reference 04/20/2018 16:23 N BUILDING ENERGY ENGINEER in this encounter Plan of Treatment Not on fileas of this encounter Visit Diagnoses Not on filein this encounter
--- OUTSIDE RECORDS SUMMARY | 2018-05-09 17:57 | XMS REPORT | Encounter Summary ---
Author Author [facility] Organization [facility] Address Unknown Phone Unavailable Care Team Providers Care Spotlight Operator Name Role Phone Erum Foreman MD PCP Erum Foreman MD 100 Reason for Visit * Reason Comments Medication Refill Protonix refill Encounter Details Care Team Description Date Type Department Val Meza RN Medication Refill (Protonix refill) 04/04/2018 Telephone Cardiovascular Medicine [place] [address] [address] [place] [address] Social History Date Tobacco Use [...] Telephone Encounter - Val Meza RN - 04/04/2018 8:09 AM EVP OF PRODUCTS & CO FOUNDER Spoke with the patient's father regarding refilling Protonix. Patient underwent an AF ablation on on 11/01/17. Patient has hx of GERD which he takes the protonix for. Refill sent to [facility]. OF PRODUCTS & CO FOUNDER * Telephone Encounter - Val Meza RN - 04/04/2018 8:09 AM EVP OF PRODUCTS & CO FOUNDER ----- Message from Alejandra Murrieta LPN sent at 04/04/2018 7:58 AM EVP OF PRODUCTS & [employer] FOUNDER ----- Regarding: YMR- refill VM from setevan Wooten on triage line last night. Said that he has 2 pills left of Pantoprazole 40mg. Do we want him to continue them, if so will need refills. Call back on cell. OF PRODUCTS & CO FOUNDER in this encounter Plan of Treatment Not on fileas of this encounter Visit Diagnoses Not on filein this encounter
--- OUTSIDE RECORDS SUMMARY | 2018-05-09 17:58 | XMS REPORT | Encounter Summary ---
Author Author [facility] Organization [facility] Address Unknown Phone Unavailable Care Team Providers Care Renal Dietitian Name Role Phone Erum Foreman MD PCP Erum Foreman MD 100 Reason for Referral * (Routine) Referred By Contact Referred To Contact Status Reason Specialty Diagnoses / Procedures Anton Figueroa MD [address] [place] [phone] New Request Procedures REQUEST FOR CARDIOLOGY APPOINTMENT Reason for Visit * Auth/Cert Referred By Contact Referred To Contact Status Reason Specialty Diagnoses / Procedures Diagnoses PAF (paroxysmal atrial fibrillation) (HCC) P rocedures [place] INSJ/RPLCMT PERM DFB W/TRNSVNS LDS 1/DUAL CHMBR INSERTION/ REPLACEMENT IMPLANTABLE DEFIBRILLATOR SYSTEM AND RIGHT ATRIAL LEAD (UPGRADE TO DUAL ICD FROM VVI ICD) Encounter Details Care Team Description Date Type Department Debra Kelley MD [address] [place] [address] [phone] Anton Figueroa MD [address] [place] [address] [phone] Nonischemic cardiomyopathy (HCC) 03/02/2018 Hospital Cardiac Catheterization - Encounter Laboratory 03/03/[address] [place], [place] [id number] Social History Date Tobacco Use Types Packs/Day [...] Vital Signs Time Taken Vital Sign Reading 03/03/2018 9:48 AM PIANO MECH[employer]IC Blood Pressure 125/72 03/03/2018 9:48 AM PIANO MECHANIC Pulse 75 03/03/2018 6:10 AM PIANO MECHANIC Temperature 37 C (98.6 F) - Respiratory Rate - 03/03/2018 6:10 AM PIANO MECHANIC Oxygen Saturation 95% - Inhaled Oxygen - Concentration 03/02/2018 11:55 AM PIANO MECHANIC Weight 99.6 kg (219 lb 9.3 oz) 03/02/2018 11:55 AM PIANO MECHANIC Height 167.6 cm (5' 6") 03/02/2018 11:55 AM PIANO MECHANIC Body Mass Index 35.44 in this encounter Functional Status Date of [...] cognitive impairment: Yes as of this encounter Discharge Summaries * Arianne Hernandez PA-C - 03/03/2018 10:33 AM [employer]ANO [employer] Physician Discharge Summary Name: Je Costa Date Of : 1985 Age: 33 years Admit date: 03/02/2018 Discharge date: 03/03/2018 Attending Physician: Dr. Sly Kelley Service: Cardiology-EP Physician Summary completed by: Arianne Hernandez PA-C Reason for hospitalization: Sudden Cardiac status post internal cardioverter defibrillator Chronic Systolic Heart Failure with reduced Ejection Fraction (HFrEF) 30% due to Nonischemic cardiomyopathy (HCC) admitted for upgrade to dual chamber internal cardioverter defibrillator from single chamber. Significant PMH: Past Medical History: Diagnosis Date Atrial fibrillation (HCC) 06/05/2011 Chronic anticoagulation 10/28/2013 Chronic systolic heart failure (HCC) 03/02/2018 GERD (gastroesophageal reflux disease) Heart attack (HCC) Hypertension Permanent atrial fibrillation (HCC) 06/05/2011 3-2011 Multiple runs of AF, up to a few hours duration by 45hr holter. 2013 - ECHO: LVEF ~ 25%. LA size=3.7 cm. Four chamber dilation with severe cardiomyopathy. LA dilation with no clot / thrombus, Severe TVR, mild MVR. Estimated PAP ~ 35mmHg. 09/21/2013 - Unsuccessful DCCV to maintain NSR. ([facility]) 11/13/2013 - CHIQUIS + DCCV: Cardioversion to restore NSR. Psychiatric illness short term memory loss Ventricular tachycardia (paroxysmal) (HCC) 06/05/2011 Allergies:Pcn [penicillins] Physical Exam notable for: Left Sub-Clavicular incision site well approximated. No hematoma. CV: RRR Lungs: CTA B Ext: no edema, + 2 b/l pedal pulses. ABD: Soft, non tender, + BS X 4 quads. Lab/Radiology studies notable for: Hematology: Lab Results Component Value Date HGB 13.9 03/03/2018 HCT 41.7 03/03/2018 PLTCT 198 03/03/2018 WBC 7.2 03/03/2018 NEUT 61 05/03/2017 ANC 4.30 05/03/2017 LYMPH 5 04/02/2017 ALC 2.00 05/03/2017 ALEE 8 05/03/2017 AMC 0.60 05/03/2017 ABC 0.10 05/03/2017 MCV 83.5 03/03/2018 MCHC 33.3 03/03/2018 MPV 9.0 03/03/2018 RDW 14.5 03/03/2018 , Coagulation: Lab Results Component Value Date PTT 29.9 09/28/2017 INR 1.2 11/01/2017 and General Chemistry: Lab Results Component Value Date NA 138 03/03/2018 K 3.5 03/03/2018 CL 105 03/03/2018 GAP 6 03/03/2018 BUN 11 03/03/2018 CR 0.90 03/03/2018 GLU 112 03/03/2018 CA 8.7 03/03/2018 ALBUMIN 4.3 09/28/2017 LACTIC 1.4 04/01/2017 MG 2.0 02/26/2018 TOTBILI 0.6 09/28/2017 Brief Hospital Course: Je Costa is a 33 y.o. year old male with a history of chronic systolic Heart Failure with reduced Ejection Fraction (HFrEF) due to tachycardia-mediated cardiomyopathy with improvement in LVEF form 20% 04/08/17 to 55%, longstanding persistent AFib with multiple episodes of rapid ventricular rates with tachycardia-mediated cardiomyopathy and eventually had an episode of [id number] cardiac arrest and was resuscitated and brought into the [facility] on the April, anoxic brain injury. He eventually underwent placement of Biotronik VVI ICD on 04/18/17. Convergent procedure was recommended by Dr. Kelley. He underwent Radiofrequency Maze procedure to posterior wall left atrium by pericardial window and igation of left atrial appendage using 45 mm AtriClip on 09/29/[address] Singh. He then underwent pulmonary vein wide area circumferential ablatio as well as Cavo- tricuspid isthmus ablation by Dr. Kelley on 11/03/17. He was treated with Amiodarone for a few months. He is anticoagulated with Apixaban. CHIQUIS in October revealed LVEF 35%. He was initiated on Entresto by Dr. Kelley. It wqas also recommended to upgrade Single chamber ICD to Dual chamber. Patient was taken to the EP lab on 03/02/[address] Kelley where Biotronik generator (details below) was upgraded to dual chamber ICD successfully with no complications. Device check this am revealed stable pacing and sensing thresholds. CXR was without pneumothorax and showed loss of lead redundancy and satisfactory placement. Patient will follow up with Dr. Kelley in 1 month. Device check in 4-12 weeks. Patient is aware to promptly report chest pain, shortness of breath, lightheadedness, dizziness, near fainting, palpitations, abd pain, back pain, fever or device shock, incision site swelling or bleeding, arm pain, numbness, or tingling. Incision site check arranged Locally with Dr. Vasquez on 02/07/18 at 11:40 am. Condition at Discharge: Stable Discharge Diagnoses: Hospital Problems Active Problems * (Principal) Nonischemic cardiomyopathy (HCC) Chronic anticoagulation Cardiac arrest (HCC) Anoxic brain injury (HCC) Impaired mobility and ADLs Cognitive impairment Obesity (BMI 30-39.9) PAF (paroxysmal atrial fibrillation) (HCC) Chronic systolic heart failure (HCC) NICM (nonischemic cardiomyopathy) ([facility]) Surgical Procedures: None Significant Diagnostic Studies and Procedures: dual chamber internal cardioverter defibrillator from single chamber. Chest 2 view Device interrogation FarmBot ICD detail: Device Mode: DDDR Lower Rate Limit: 60 Upper Rate Limit: 130 Sensor Rate Limit: 120 Mode Switch: On Mode Switch Detection (bpm): 160 High Atrial Rate Detection (bpm): NA High Ventricular Rate Detection (bpm): 176 Rate Response: On Pace AV Delay: 250 Sense AV Delay: 250 VT Monitor: 176 VT Detect Rate (bpm): 194 VT Detect Rate Tx: ATP SHOCK FVT Detect Rate (bpm): NA FVT Detect Rate Tx: NA VF Detect Rate (bpm): 231 VF Detect Rate Tx: ATP SHOCK Hardware GENERATOR Rent Collector: FarmBot Device Type: VVI-ICD Model Number: [id number] 7 DR-T Serial Number: [id number] Implant Date: 03/02/2018 Investigational: No Wireless: Yes MRI Conditional: [place] Transmitter: Remote Connectivity: Cellular adaptor Remote Monitor Serial Number: [id number] Accessory Serial Number: Spool Location: Explanted Generator Number: FarmBot Explanted Generator Model Number: Ilivia 7 VR-T DF4 Explanted Generator Serial Number: [id number] Explant Date: BITA/EOL Indicator: Per transmitter/net programmer ATRIAL LEAD RV LEAD LV LEAD Rent Collector: [employer] Model Number: PRO MRI SOLIA S 53 Plexa ProMRI S 65 Serial Number: [id number] Implant Date: 03/02/2018 04/18/2017 Investigational: No No MRI Conditional: Yes Yes Lead Fixation: active fixation active fixation Location: RV mid septum Pin Connector: IS1 IS1 Polarity: Bipolar Coils: Single Configuration: Additional Hardware: LEAD FUNCTION ATRIAL LEAD RV LEAD LV LEAD Sense: 4.5 (mV) 24.0 (mV) (mV) Capture Threshold: 0.5 (V)/ 0.4 (ms) 0.8 (V)/ 0.4 (ms) (V)/ (ms) Current: (mA) (mA) (mA) Impedance: 565 (ohms) 536 (ohms) (ohms) Output: 3.5@0.4 3.5@0.4 @ No Diaph. Stim. @ 10 V 10 V V Consults: None Patient Disposition: Home Patient instructions/medications: Procedure Specific Activity *Your left arm is your affected arm. *Do not raise your elbow higher than shoulder level on affected side. *Continue to move your shoulder so the joint does not become stiff. *You may resume driving 5 days after surgery. *You may resume sexual activity in 1 week. *If you toss and turn while sleeping, you should use your sling. *No pushing, pulling, or lifting greater than 10-15 pounds with affected arm for 1 month. *Avoid placing all your weight on your arms for 4 weeks. *Avoid bowling, swimming, golfing, or swinging a baseball bat for 90 days. *Avoid any activity or exercise that involves rough contact with device site. *Avoid any activity or exercise that might cause injury to skin over the device. Stroke Information F.A.S.T. is an easy way to remember the sudden signs of a stroke. F - face drooping A - arm weakness S - speech difficulty T - TIME TO CALL 911 If the person shows any of theses signs, even if the signs go away, call 9--1 IMMEDIATELY. Check the time so you will know when the first sign started. Report These Signs and Symptoms Please contact your doctor if you have any of the following symptoms: Incisional bleeding, oozing, or drainage. Any increased swelling, warmth or pain to incision site. and *Continue medicines as direct on your discharge medication list. Get an up to date list with every visit and take as instructed. Do NOT stop taking any medications without speaking with your doctor or nurse who knows you. *Remember to weigh yourself first thing in the morning after using the restroom and write it down. Take this record to your doctor appointment. *Chart symptoms such as fatigue, trouble breathing, or swelling. Call your doctor right away if these symptoms get worse. *Remember, do not eat more than 2000 milligrams of sodium a day. Watch out for packaged, processed, canned and restaurant foods. Call your doctor (your lead recreation assistant, if you have one) if: -you gain more than 2 pounds in 24 hours. -you gain more than 5 pounds in 1 week. -any of your symptoms get worse Do NOT wait to let your doctor know about these changes. Questions About Your Stay For questions or concerns regarding your hospital stay: - DURING BUSINESS HOURS (8:00 AM - 4:30 PM): Call [phone] and asked to be transferred to your discharge attending physician. - AFTER BUSINESS HOURS (4:30 PM - 8:00 AM, on weekends, or holidays): Call [phone] and ask the foundation drill operator to page the on-call doctor for the discharge attending physician. Discharging attending physician: DEBRA KELLEY [[id number]] Cardiac Diet Limiting unhealthy fats and cholesterol is the most important step you can take in reducing your risk for cardiovascular disease. Unhealthy fats include saturated and trans fats. Monitor your sodium and cholesterol intake. Restrict your sodium to 2g (grams) or 2000mg (milligrams) daily, and your cholesterol to 200mg daily. If you have questions regarding your diet at home, you may contact a dietitian at . Return Appointment Please call Cardio-Vascular Medicine Central Scheduling at , Monday through Monday, between 8 a.m. to 5 p.m. to make your follow up hospitalization appointment for 4 weeks. Provider DEBRA KELLEY [[id number]] Turning [place] Information [facility] is a gathering place for individuals, families, and friends living with serious or chronic physical illness. They offer education and support programs that help you live your life to the fullest. Unless otherwise noted, programs are offered at NO CHARGE. However, REGISTRATION IS REQUIRED 48 hours in advance. To arrange for a tour, register for a class, or ask a questions please call . You can also visit [email or web address] for more information. ICD Interrogation Standing Status: Future Standing Exp. Date: 03/02/19 4-12 weeks Location of Appointment [facility] / Mon-Mon Scheduling Priority: Routine Request for Cardiology Appointment Standing Status: Future Standing Exp. Date: 03/02/23 4 weeks Scheduling Priority: Routine Schedule OV with (1st choice Provider) Debra Kelley M.D. Special Visit Type Post Hospital Follow-up Location of Appointment [facility] / Mon-Mon Current Discharge Medication List CONTINUE these medications which have NOT CHANGED Details apixaban (ELIQUIS) 5 mg tablet Take 1 tablet by mouth twice daily. Qty: 60 tablet, Refills: 11 PRESCRIPTION TYPE: Normal magnesium oxide (MAG-OX) 400 mg tablet Take 1 tablet by mouth twice daily. Qty: 180 tablet, Refills: 3 PRESCRIPTION TYPE: Normal metoprolol XL (TOPROL XL) 50 mg extended release tablet Take one tablet by mouth daily. Qty: 90 tablet, Refills: 3 PRESCRIPTION TYPE: Normal Associated Diagnoses: PAF (paroxysmal atrial fibrillation) (HCC) pantoprazole DR (PROTONIX) 40 mg tablet Take 1 tablet by mouth twice daily. Qty: 90 tablet, Refills: 1 PRESCRIPTION TYPE: Normal sacubitril/valsartan (ENTRESTO) 24/26 mg tablet Take one tablet by mouth twice daily. Qty: 180 tablet, Refills: 3 PRESCRIPTION TYPE: Normal senna/docusate (SENOKOT-S) 8.6/50 mg tablet Take 2 tablets by mouth twice daily. Qty: 30 tablet, Refills: 0 PRESCRIPTION TYPE: Normal sertraline (ZOLOFT) 50 mg tablet Take one tablet by mouth daily. Qty: 90 tablet, Refills: 1 PRESCRIPTION TYPE: Normal The following medications were removed from your list. This list includes medications discontinued this stay and those removed from your prior med list in our system amiodarone (CORDARONE) 200 mg tablet Scheduled appointments: July 18, 2018 1:00 PM CDT Return Patient with Erum Foreman MD [facility] - Internal Medicine ([facility] Internal Medicine) Ortho and Medical Pavilion Level 4B [address] [facility] [id number] Jan 23, 2019 1:00 PM [employer]O [employer]CH[employer]IC Return Patient with Belén Garg MD [facility] - Rehabilitation Medicine ([facility] Rehab Medicine) Ortho and Medical Pavilion Level 2B [address] [facility] [phone] Pending items needing follow up: as above Signed: Arianne Hernandez PA-C [id number] cc: Primary Care Physician: Erum Foreman Verified Referring physicians: Debra Kelley MD Additional provider(s): Dr. Omer Huerter O MECHANIC in this encounter Medications at Time of Discharge [...] tablet 1 tablet tablet by mouth daily. 12/26/2017 04/04/[address] Take 1 tablet 90 tablet 1 (PROTONIX) 40 mg tablet by mouth twice daily. as of this encounter Progress Notes * Yolanda Olmedo RN - 03/03/2018 9:49 AM [employer]ANO MECHANIC Patient discharged to home with all belongings. Discharge instructions, med reconciliation and home wound care instructions given and explained to patient and family both verbally and written. Accompanied by family. No complaints of pain or discomfort. Left chest site remains clean, dry, and intact with no evidence of a hematoma after ambulation. Patient escorted to [facility] via Transport. Patient to follow up with [facility] Cardiology ([facility]) or on-call physician with any additional questions or concerns. All contact numbers provided. Patient and family acceptant of DC instuctions and report understanding to all information. O MECHANIC * Eron Young MBBS - 03/03/2018 9:42 AM [employer]O MECH[employer]IC CARDIAC ELECTROPHYSIOLOGY PROGRESS NOTE Impression: Je Costa is a 33 y.o. male with a history of Nonischemic cardiomyopathy status post single ICD placement with history of atrial fibrillation who It is no status post RA dilation. Device check showed adequate lead testing and thresholds. Chest x-ray reviewed and shows significant loss of body and interestingly RV lead redundancy.. Paroxysmal atrial arrhythmia status post ablation in October. Patient had a conversion procedure with aortic replacement. Continue with amiodarone and apixaban for a [id number] score of 1 . Nonischemic cardiomyopathy. He has no evidence of congestive heart failure on exam today Recommendations: Follow-up for wound check in 1-2 weeks. Continue with amiodarone and apixaban. Sensing and pacing thresholds are excellent for both the RA and RV leads. Hence despite loss of redundancy will not attempt to make any changes at this time. Will follow up in clinic. In the event that there is significant difference in his sensing and pacing parameters, he may need lead revision to add redundancy to both his leads Eron Young MD [id number] 03/03/2018 9:43 AM ATTESTATION/ADDENDUM: I have personally seen and examined the pt. and performed the stephens portions of the E/M visit or Consultation. The plan was formulated and discussed with the fellow. I concur with fellow's documentation of the history, physical exam, assessment, and treatment plan, with comments and amends to the note made as needed. Patient presented for additional RA lead to single-chamber ICD. No specific complaints this morning outside of not liking the taste of his breakfast very much and some mild tenderness at his device site. Device function by testing this morning showed excellent function. Chest x-ray shows some loss of RA lead redundancy and interestingly RV lead redundancy. Despite loss of redundancy with excellent lead function no changes at this time. We will continue to monitor accordingly. Reviewed all of the above with the patient and his father. Of note on exam device site is well-healed and dressed. Note--The Complexity of medical decision making is high due to the multi-system diseases present and the complexity of the pt's current heart/rhythm condition with concerns including but not limited to complexity/severity and gravity of the patient's underlying cardiac illnesses and interplay of other issues. Anton Figueroa M.D., [facility], [facility] Staff Heat Regulator pharmacy laboratory technician Cardiology and Electrophysiology Dept. [facility] Cardiology [facility] Pager: [phone] Subjective/Objective: Subjective: Patient did well overnight. No complaints. No arrhythmias. Objective: BP 121/70 | Pulse 72 | Temp 37 C (98.6 F) | Ht 1.676 m (5' 6") | Wt 99.6 kg (219 lb 9.3 oz) | SpO2 95% | BMI 35.44 kg/m BP 125/72 | Pulse 75 | Temp 37 C (98.6 F) | Ht 1.676 m (5' 6") | Wt 99.6 kg (219 lb 9.3 oz) | SpO2 95% | BMI 35.44 kg/m GENERAL APPEARANCE: Patient in no apparent distress. PSYCH: Appropriate NEURO: Alert and conversant VESSELS: JVD is not elevated above the sternal notch. ENT: Moist mucous membranes CARDIOVASCULAR: No parasternal lift Regular rhythm and normal rate. S1 and S2 present. No murmur. There is no pericardial rub GI: Abdomen nondistended No appreciable hepatomegaly in the upright position RESPIRATORY: Clear breath sounds bilaterally EXTREMITIES: There was no lower extremity edema SKIN: No rash on chest GAIT: Able to ambulate to the exam table Inpatient Medications: Current Facility-Administered Medications: acetaminophen (TYLENOL) tablet 325-650 mg, 325-650 mg, Oral, Q4H PRN, Kareem Galarza DO aluminum/magnesium hydroxide (MAALOX) oral suspension 30 mL, 30 mL, Oral, Q4H PRN, Angeline Lutz L, CROWN BLOCKER apixaban (ELIQUIS) tablet 5 mg, 5 mg, Oral, BID, Arianne Hernandez PA-C, 5 mg at 03/03/18 0928 HYDROcodone/acetaminophen (NORCO) 5/325 mg tablet 1 tablet, 1 tablet, Oral , Q4H PRN, Kareem Galarza, lidocaine PF 1% (10 mg/mL) injection 0.1-2 mL, 0.1-2 mL, Injection, PRN, Debra Kelley MD magnesium oxide (MAG-OX) tablet 400 mg, 400 mg, Oral, BID, Mary, Arianne A, PA -C, 400 mg at 03/03/18 0928 magnesium sulfate 1 g/D5W 100 mL IVPB, 1 g, Intravenous, PRN (Chandelier Maker from Rx), Maikol Hernandeza A, PA-C metoprolol XL (TOPROL XL) tablet 50 mg, 50 mg, Oral, QDAY, Maikol Hernandeza A, PA -C, 50 mg at 03/03/18927 milk of magnesia (CONC) oral suspension 10 mL, 10 mL, Oral, Q6H PRN, Angeline Lutz, CROWN BLOCKER ondansetron (ZOFRAN) injection 4 mg, 4 mg, Intravenous, Q6H PRN, Kareem Galarza, pantoprazole DR (PROTONIX) tablet 40 mg, 40 mg, Oral, BID, Maikol Hernandeza A, PA -C, 40 mg at 03/03/18927 potassium chloride SR (K-DUR) tablet 40-60 mEq, 40-60 mEq, Oral, PRN, 40 mEq at 03/03/18927 OR potassium chloride oral solution 40-60 mEq, 40-60 mEq, Per NG tube, PRN, Maikol Hernandeza A, PA-C sacubitril/valsartan (ENTRESTO) 24/26 mg tablet 1 tablet, 1 tablet, Oral, BID, Maikol Hernandeza A, PA-C, 1 tablet at 03/03/18 09 sertraline (ZOLOFT) tablet 50 mg, 50 mg, Oral, QDAY, Maikol Hernandeza A, PA-C, 50 mg at 03/03/18 0928 sodium chloride 0.9 % infusion, , Intravenous, Continuous, Debra Kelley MD, Stopped at 03/03/18 0000 temazepam (RESTORIL) capsule 15 mg, 15 mg, Oral, QHS PRN, HaAngeline ascencio APRN vancomycin (VANCOCIN) 1,500 mg in dextrose 5% (D5W) IVPB, 15 mg/kg, Intravenous, Q12H*, Debra Kelley MD, Last Rate: 200 mL/hr at 03/02/181939, 1,500 mg at 03/02/181939 Pertinent Lab Results: Reviewed laboratory results as of today Pertinent Studies: EKG shows sinus rhythm with heart rate of 64 bpm, KS interval 180 ms, QRS duration 86 ms and a corrected QT interval of 438 ms Telemetry: Sinus rhythm O MECHANIC * Arnol Hernandez RN - 03/02/2018 12:35 PM PIANO MECHANIC RN Prep Complete O MECHANIC * Arnol Hernandez RN - 03/02/2018 12:30 PM PIANO MECHANIC Patient arrived on unit via ambulation accompanied by family. Patient transferred to the bed without assistance. Frailty score equals 4 Assessment completed, refer to flowsheet for details. Orders released, reviewed, and implemented as appropriate. Oriented to surroundings, call light within reach. Plan of care reviewed. Will continue to monitor and assess. O MECHANIC in this encounter H&P Notes * Angeline Lutz APRN - 02/28/2018 4:42 PM PIANO MECHANIC Patient presents for procedure. Please see most recent H/P from 02/26/18 below. DIEGO Carlson Pager [phone] Office Visit 02/26/2018 Cardiovascular Medicine Naomi Cruz APRN-C Cardiology PAF (paroxysmal atrial fibrillation) (HCC) +1 more Dx History And Physical ; Referred by Erum Foreman MD Reason for Visit Progress Notes Naomi Cruz APRN-C (Nurse Practitioner) Cardiology 02/26/18 1330 Signed Date of Service: 02/26/2018 Je Costa is a 33 y.o. male. HPI I had the pleasure of seeing Je Costa for an H&P prior to a device upgrade. He is a 33-year-old with history of long-standing persistent atrial fibrillation status post convergent procedure and atrial clip placement in . He had an out of hospital cardiac arrest and was resuscitated in April 2017. He had a single-chamber ICD placed at the time of his event. He did have anoxic brain injury and has short-term memory issues but ultimately is functioning fairly well. He has a caregiver that is with him if his father is not available. On CHIQUIS in October his EF was 35%. He saw Dr. Kelley for follow-up and was started on Entresto. It was also recommended that he have a device upgrade to a dual-chamber device. He is scheduled for that procedure on March 02. Mr. Costa has been doing well since his last visit. He has had no new issues. He denies chest pain, shortness of breath, palpitations, near-syncope or syncope. He has had improvement since the ablation over the summer. Vitals: 02/26/18 1248 BP: 108/80 Pulse: 66 Weight: 102.1 kg (225 lb) Height: 1.6 m (5' 3") Body mass index is 39.86 kg/m. Past Medical History Patient Active Problem List Diagnosis Date Noted PAF (paroxysmal atrial fibrillation) ([facility]) 10/11/2017 Added automatically from request for surgery [id number] Hospital discharge follow-up 10/11/2017 Atrial fibrillation (HCC) 09/28/2017 Added automatically from request for surgery [id number] Obesity (BMI 30-39.9) 09/12/2017 Establishing care with new doctor, encounter for 07/31/2017 Depression 07/31/2017 Adjustment disorder with mixed anxiety and depressed mood 05/10/2017 Cognitive impairment 05/04/2017 Memory impairment 05/04/2017 Vision impairment 05/04/2017 Motor apraxia 05/04/2017 Impaired mobility and ADLs 05/03/2017 Chronic anticoagulation 05/03/2017 Anoxic brain injury (HCC) 04/04/2017 Cardiac arrest ([facility]) 03/31/2017 Nonischemic cardiomyopathy (HCC) 10/31/2013 Chronic anticoagulation 10/28/2013 Eliquis Chronic headaches 06/06/2011 Allergies Allergen Reactions Pcn [Penicillins] RASH Family History Problem Relation Age of Onset Unknown to Patient Mother Hypertension Father Cancer Paternal Aunt Lung Diabetes Paternal Uncle Hypertension Paternal Grandmother Cancer Paternal Grandmother Colon Diabetes Paternal Grandmother Cancer Paternal Grandfather Colon Diabetes Paternal Grandfather Past Surgical History: Procedure Laterality Date HX PACEMAKER PLACEMENT Left 03/2017 Social History Socioeconomic History Marital status: Single Spouse name: Not on file Number of children: Not on file Years of education: Not on file Highest education level: Not on file Social Needs Financial resource strain: Not on file Food insecurity - worry: Not on file Food insecurity - inability: Not on file Transportation needs - medical: Not on file Transportation needs - non-medical: Not on file Occupational History Not on file Tobacco Use Smoking status: Never Smoker Smokeless tobacco: Never Used Substance and Sexual Activity Alcohol use: No Drug use: No Sexual activity: Not on file Other Topics Concern Not on file Social History Narrative Not on file Review of Systems Constitution: Negative. HENT: Negative. Eyes: Negative. Cardiovascular: Positive for dyspnea on exertion. Respiratory: Negative. Endocrine: Negative. Hematologic/Lymphatic: Negative. Skin: Negative. Musculoskeletal: Negative. Gastrointestinal: Negative. Genitourinary: Negative. Neurological: Positive for headaches. Psychiatric/Behavioral: Positive for memory loss. Allergic/Immunologic: Negative. Physical Exam General Appearance: no acute distress Skin: warm & intact HEENT: unremarkable Neck Veins: neck veins are flat & not distended Carotid Arteries: no bruits Chest Inspection: chest is normal in appearance Auscultation/Percussion: lungs clear to auscultation, no rales, rhonchi, or wheezing Cardiac Rhythm: regular rhythm & normal rate Cardiac Auscultation: Normal S1 & S2, no S3 or S4, no rub Murmurs: no cardiac murmurs Extremities: no lower extremity edema; 2+ symmetric distal pulses Abdominal Exam: soft, non-tender, no masses, bowel sounds normal Liver & Spleen: no organomegaly Neurologic Exam: oriented to time, place and person; no focal neurologic deficits Psychiatric: Normal mood and affect. Behavior is normal. Judgment and thought content normal. Cardiovascular Studies Preliminary EKG: NSR, rate 66 bpm. Problems Addressed Today Encounter Diagnoses Name Primary? PAF (paroxysmal atrial fibrillation) (HCC) Yes Nonischemic cardiomyopathy (HCC) Assessment and Plan 1. Paroxysmal atrial arrhythmia status post ablation in October. He is in sinus rhythm today. He is on amiodarone and apixaban. 2. Nonischemic cardiomyopathy. His EF was 35% on this most recent study. He is on Toprol 50 mg daily and Entresto 24/26 mg twice a day. He is tolerating his medications without issues. He has no evidence of congestive heart failure. 3. Cardiac arrest status post single-chamber ICD placement. He is having a device upgrade to a dual-chamber device by Dr. Kelley on March 02. We discussed the pre-procedure instructions and procedure in detail and all questions were answered. Thank you for allowing us to participate in the care of this pleasant individual. If you have any other questions or concerns, please do not hesitate to contact us. Current Medications (including today's revisions) amiodarone (CORDARONE) 200 mg tablet Take 1 tablet by mouth daily. Take with food. apixaban (ELIQUIS) 5 mg tablet Take 1 tablet by mouth twice daily. magnesium oxide (MAG-OX) 400 mg tablet Take 1 tablet by mouth twice daily. metoprolol XL (TOPROL XL) 50 mg extended release tablet Take one tablet by mouth daily. pantoprazole DR (PROTONIX) 40 mg tablet Take 1 tablet by mouth twice daily. sacubitril/valsartan (ENTRESTO) 24/26 mg tablet Take one tablet by mouth twice daily. senna/docusate (SENOKOT-S) 8.6/50 mg tablet Take 2 tablets by mouth twice daily. (Patient taking differently: Take 2 tablets by mouth twice daily as needed.) sertraline (ZOLOFT) 50 mg tablet Take one tablet by mouth daily. O MECHANIC in this encounter Miscellaneous Notes * Procedures (Immed Post or Bedside) - Kareem Galarza DO - 03/02/2018 9:21 PM PIANO MECHANIC Cardiac Electrophysiology Brief Post-Procedure Note Attending: Anton Figueroa MD Fellow: Kareem Galarza DO Preoperative diagnosis: NICM, hx cardiac arrest and single chamber ICD placement , hx of afib ablation Postoperative diagnosis: same, now s/p RA lead addition Procedure(s) Performed: RA lead addition Procedure Description: Successful RA lead addition Procedure Findings: Successful Anesthesia: Conscious sedation with fentanyl and Versed (2010 to 2054) Estimated blood loss: 8 mL Complications: None Specimens removed: None Plan: -monitor overnight -CXR and device check in the AM O MECHANIC in this encounter Plan of Treatment Order Schedule Name Priority Associated Diagnoses Expected: 04/02/2018, Expires: 03/02/2019 DEVICE EVALUATION - ICD Routine Nonischemic cardiomyopathy (HCC) as of this encounter Procedures Comments Procedure Name Priority Date/Time Associated Diagnosis DEVICE EVALUATION - ICD Routine 03/04/2018 9:40 PM [facility]ANO MECHANIC CHEST 2 VIEWS Routine 03/03/2018 6:36 AM [facility]ANO MECHANIC CBC Routine 03/03/2018 4:00 AM [facility]ANO MECHANIC BASIC METABOLIC PANEL Routine 03/03/2018 4:00 AM [facility]ANO MECHANIC ECG 12-LEAD Routine 03/03/2018 2:00 AM [facility]ANO MECHANIC INJECTION VENOGRAPHY - Routine 03/02/2018 PAF (paroxysmal atrial EXTREMITY 9:25 PM PIANO MECHANIC fibrillation) ([facility]) FLUOROSCOPY - CARDIAC Routine 03/02/2018 PAF (paroxysmal atrial 9:25 PM [facility]ANO MECHANIC fibrillation) ([facility]) INSERTION/ REPLACEMENT Routine 03/02/2018 PAF (paroxysmal atrial IMPLANTABLE DEFIBRILLATOR 9:25 PM [facility]ANO [facility]CHANIC fibrillation) ([facility]) SYSTEM AND LEAD TELEMETRY STRIPS-SCAN 03/02/2018 12:00 AM PIANO MECHANIC ECG-SCAN 03/02/2018 12:00 AM PIANO MECHANIC in this encounter Results * DEVICE EVALUATION - ICD (03/04/2018 9:40 PM PIANO MECHANIC) RV Lead Rent Collector Biotron[employer] OTHER OUTSIDE LAB RV Lead Model [...] Lead Coil Single OTHER OUTSIDE LAB Generator Rent Collector Bi[employer] OTHER OUTSIDE LAB Generator Implnat Date [...] OTHER OUTSIDE LAB Due Device Implanted By Debra Kelley MD OTHER OUTSIDE LAB Date of Last Programming 10/17/17 OTHER OUTSIDE LAB Date of Last 10/17/17 OTHER OUTSIDE LAB Interrogation HF Patient No OTHER OUTSIDE LAB EP Device Followed By [facility] OTHER OUTSIDE LAB EP Device Followed by Debra Kelley MD OTHER OUTSIDE LAB Name Known Diagnosed AFib Yes OTHER OUTSIDE LAB On Anticoagulation Yes OTHER OUTSIDE LAB Generator Investigational No OTHER OUTSIDE LAB RV Lead Investigational No OTHER OUTSIDE LAB BITA/EOL Indicator Per transmitter/net programmer OTHER OUTSIDE LAB Wireless Generator Yes OTHER OUTSIDE LAB Daily [place] Threshld Off OTHER OUTSIDE LAB Alert? Average Venticular Rate Off OTHER OUTSIDE LAB AT/AF On/Off Enrollment Date 04/18/17 OTHER OUTSIDE LAB VF Detection/Therapy Off On OTHER OUTSIDE LAB Remote Monitor Serial# [id number] OTHER OUTSIDE LAB RV Lead MRI Conditional Yes OTHER OUTSIDE LAB Remote Connectivity Cellular adaptor OTHER OUTSIDE LAB Accssory Serial Number CardioMessenger Smart OTHER OUTSIDE LAB Known Diagnosed VT VT No OTHER OUTSIDE LAB ATP No OTHER OUTSIDE LAB Device Shock No OTHER OUTSIDE LAB Device Remote Manual No OTHER OUTSIDE LAB Downloads Next Remote Check Due 05/02/18 OTHER OUTSIDE LAB Atrial Lead Rent Collector Biotronik OTHER OUTSIDE LAB Atrial Lead Model # PRO MRI SOLIA S 53 OTHER OUTSIDE LAB Atrial Lead Serial # [id number] OTHER OUTSIDE LAB Atrial Lead Implant Date [...] OTHER OUTSIDE LAB * CHEST 2 VIEWS (03/03/2018 6:36 AM PIANO MECHANIC) Impressions Performed At Interval cardiac conduction device revision with no visualized pneumothorax. [facility] RESULTS By my electronic signature, I attest that I have personally reviewed the images for this examination and formulated the interpretations and opinions expressed in this report Finalized by Stevo Steen M.D. on 03/03/2018 9:20 AM. Dictated by Titi Thomas M.D. on 03/03/2018 9:09 AM. Narrative Performed At Procedure: CHEST 2 VIEWS [facility] RESULTS Clinical Indication: Post device implantation. Comparison: Chest radiograph October 17, 2017. FINDINGS: Upright PA and lateral chest radiographs were obtained. Cardiac conduction device remains in similar position with interval placement of a right atrial lead. Left atrial appendage clip is again noted. Cardiac silhouette is normal in size without pulmonary venous congestion. No pneumothorax, pleural effusion, or focal consolidation. Thoracic spondylosis. Procedure Note Interface, Radiant Results - 03/03/2018 9:23 AM PIANO MECHANIC Procedure: CHEST 2 VIEWS Clinical Indication: Post device implantation. Comparison: Chest radiograph October 17, 2017. FINDINGS: Upright PA and lateral chest radiographs were obtained. Cardiac conduction device remains in similar position with interval placement of a right atrial lead. Left atrial appendage clip is again noted. Cardiac silhouette is normal in size without pulmonary venous congestion. No pneumothorax, pleural effusion, or focal consolidation. Thoracic spondylosis. IMPRESSION Interval cardiac conduction device revision with no visualized pneumothorax. By my electronic signature, I attest that I have personally reviewed the images for this examination and formulated the interpretations and opinions expressed in this report Finalized by Stevo Steen M.D. on 03/03/2018 9:20 AM. Dictated by Titi Thomas M.D. on 03/03/2018 9:09 AM. Performing Organization Address City/[facility] Phone Number [facility] RES[facility] * CBC (03/03/2018 4:00 AM PIANO MECHANIC) White Blood Cells 7.2 4.5 - 11.0 K/UL [facility] RBC 5.00 4.4 - 5.5 M/UL [facility] Hemoglobin 13.9 13.5 - 16.5 GM/DL [facility] Hematocrit 41.7 40 - 50 % [facility] MCV 83.5 80 - 100 FL [facility] MCH 27.8 26 - 34 PG [facility] MCHC 33.3 32.0 - 36.0 G/DL [facility] RDW 14.5 11 - 15 % [facility] Platelet Count 198 150 - 400 K/UL [facility] MPV 9.0 7 - 11 FL [facility] Specimen Blood Performing Organization Address [facility] Phone Number [facility] [address] [place] [address] * BASIC METABOLIC PANEL (03/03/2018 4:00 AM PIANO MECHANIC) Sodium 138 137 - 147 MMOL/L [facility] Potassium 3.5 3.5 - 5.1 MMOL/L [facility] Chloride 105 98 - 110 MMOL/L [facility] CO2 27 21 - 30 MMOL/L [facility] Anion Gap 6 3 - 12 [facility] Glucose 112 (H) 70 - 100 MG/DL [facility] Blood Urea Nitrogen 11 7 - 25 MG/DL [facility] Creatinine 0.90 0.4 - 1.24 MG/DL [facility] Calcium 8.7 8.5 - 10.6 MG/DL [facility] eGFR Non >60 >60 mL/min [facility] Comment: The eGFR is not validated for use in drug dosing adjustments.Continue to use estimated creatinine clearance per dosing reference text.Please contact the Clinical Pharmacist for questions. eGFR >60 >60 mL/min [facility] Comment: The eGFR is not validated for use in drug dosing adjustments.Continue to use estimated creatinine clearance per dosing reference text.Please contact the Clinical Pharmacist for questions. Specimen Blood Performing Organization Address City/[facility]/Zipcode Phone Number [facility] [address] [place] [address] * EP STUDY (03/02/2018 9:25 PM PIANO MECHANIC) Narrative Performed At OTHER OUTSIDE LAB ELECTROPHYSIOLOGY [...] was monitored throughout the procedure by the labor relations officer staff and myself. The total [id number]-[id number]-[id number] time was 44 minutes (2010). CONTRAST: 15 mL CONCLUSION:Succesful dual chamber Defibrillator [...] LAB * EP DEVICE (03/02/2018 9:25 PM PIANO MECHANIC) RV Lead Rent Collector MyandbroniBAC ON TRAC OTHER OUTSIDE LAB RV Lead Model # [...] Lead Coil Single OTHER OUTSIDE LAB Generator Rent Collector MyandbroniBAC ON TRAC OTHER OUTSIDE LAB Generator Implnat Date 03/02/2018 [...] OTHER OUTSIDE LAB Due Device Implanted By Debra Kelley MD OTHER OUTSIDE LAB Date of Last Programming 10/17/17 OTHER OUTSIDE LAB Date of Last 10/17/17 OTHER OUTSIDE LAB Interrogation HF Patient No OTHER OUTSIDE LAB EP Device Followed By [facility] OTHER OUTSIDE LAB EP Device Followed by Debra Kelley MD OTHER OUTSIDE LAB Name Known Diagnosed AFib Yes OTHER OUTSIDE LAB On Anticoagulation Yes OTHER OUTSIDE LAB Generator Investigational No OTHER OUTSIDE LAB RV Lead Investigational No OTHER OUTSIDE LAB BITA/EOL Indicator Per transmitter/net programmer OTHER OUTSIDE LAB Wireless Generator Yes OTHER OUTSIDE LAB Daily [place] Threshld Off OTHER OUTSIDE LAB Alert? Average Venticular Rate Off OTHER OUTSIDE LAB AT/AF On/Off Enrollment Date 04/18/17 OTHER OUTSIDE LAB VF Detection/Therapy Off On OTHER OUTSIDE LAB Remote Monitor Serial# [id number] OTHER OUTSIDE LAB RV Lead MRI Conditional Yes OTHER OUTSIDE LAB Remote Connectivity Cellular adaptor OTHER OUTSIDE LAB Accssory Serial Number CardioMessenger Smart OTHER OUTSIDE LAB Known Diagnosed VT VT No OTHER OUTSIDE LAB ATP No OTHER OUTSIDE LAB Device Shock No OTHER OUTSIDE LAB Device Remote Manual No OTHER OUTSIDE LAB Downloads Next Remote Check Due 05/02/18 OTHER OUTSIDE LAB Atrial Lead Rent Collector Biotronik OTHER OUTSIDE LAB Atrial Lead Model # PRO MRI SOLIA S 53 OTHER OUTSIDE LAB Atrial Lead Serial # [id number] OTHER OUTSIDE LAB Atrial Lead Implant Date [...] DF4 OTHER OUTSIDE LAB Model# EXPLANTED GENERATOR [id number] OTHER OUTSIDE LAB SERIAL# Generator Model # ILIVIA 7 DR-T OTHER OUTSIDE LAB Generator Serial # [id number] OTHER OUTSIDE LAB A Sense mv 4.5 [...] was monitored throughout the procedure by the labor relations officer staff and myself. The total [id number]-fp-fovd time was 44 minutes (2010 to 2054). [...] LAB * TELEMETRY STRIPS-SCAN (03/02/2018 12:00 AM PIANO MECHANIC) Narrative Performed At Ordered by an unspecified provider. * ECG-SCAN (03/02/2018 12:00 AM PIANO MECHANIC) Narrative Performed At Ordered by an unspecified provider. in this encounter Visit Diagnoses Diagnosis Nonischemic cardiomyopathy (HCC) - Primary Other primary cardiomyopathies PAF (paroxysmal atrial fibrillation) (HCC) Atrial fibrillation NICM (nonischemic cardiomyopathy) (HCC) Other primary cardiomyopathies Atrial fibrillation, unspecified type (HCC) in this encounter Admitting Diagnoses Diagnosis NICM (nonischemic cardiomyopathy) (HCC) Other primary cardiomyopathies in this encounter Administered Medications Action Date Dose Rate Site Medication Order MAR Action acetaminophen (TYLENOL) tablet 325-650 mg 325-650 mg, Oral, EVERY 4 HOURS PRN, Starting Mon03/02/18 at 2131, Until 03/03/18 at 1233, Pain non-opioid: may be used alone or in combination with opioid analgesia, TOTAL ACETAMINOPHEN DOSE NOT TO EXCEED 4GM DAILY, aluminum/magnesium hydroxide (MAALOX) oral suspension 30 mL 30 mL, Oral, EVERY 4 HOURS PRN, Starting Mon03/02/18 at 1131, Until 03/03/18 at 1233, Indigestion/Heartburn, Admission/Obs/Extended Recovery 03/03/2018 9:28 AM PIANO MECHANIC 5 mg apixaban (ELIQUIS) tablet 5 mg Given 5 mg, Oral, TWICE DAILY, First dose on Mon03/02/18 at 2100, Until Discontinued, May crush 5 mg or 2.5 mg tablets and suspend in 60 mL of D5W followed by immediate delivery through a nasogastric tube. No information regarding administration of suspension by mouth is available. NOTE: This is a HIGH ALERT Medication., Admission/Obs/Extended Recovery 5 mg Given 03/02/2018 11:07 PM PIANO MECHANIC HYDROcodone/acetaminophen (NORCO) 5/325 mg tablet 1 tablet 1 tablet, Oral, EVERY 4 HOURS PRN, Starting Mon03/02/18 at 2131, Until 03/03/18 at 1233, Pain PO, TOTAL ACETAMINOPHEN DOSE NOT TO EXCEED 4GM DAILY NOTE: This is a HIGH ALERT Medication., lidocaine PF 1% (10 mg/mL) injection 0.1-2 mL 0.1-2 mL, Injection, NEEDED, Starting Mon03/02/18 at 1131, Until 03/03/18 at 1233, Other..., for peripheral IV insertion, Pre-Op 03/03/2018 9:28 AM PIANO MECHANIC 400 mg magnesium oxide (MAG-OX) tablet 400 mg Given 400 mg, Oral, TWICE DAILY, First dose on Mon03/02/18 at 2100, Until Discontinued, Delivers 241.3mg elemental magnesium per tab, Admission/Obs/Extended Recovery 400 mg Given 03/02/2018 11:07 PM PIANO MECHANIC magnesium sulfate 1 g/D5W 100 mL IVPB 1 g, Intravenous, 100 mL, Administer over 1 Hours, NEEDED (FLUX MIXER FROM RX), Starting Mon03/02/18 at 1800, Until 03/03/18 at 1233, Other..., magnesium replacement (see admin. instr.), If urine output <240 mL/8 hr or SCr >2.0 mg/dL, check with physician prior to giving magnesium replacement. - For Serum Magnesium >1.6 mg/dL, no replacement necessary - For Serum Magnesium 1.2 - 1.6 mg/dL, give Magnesium Sulfate 2 grams IVPB over 2 hours. - For Serum Magnesium <1.2 mg/dL, give Magnesium Sulfate 4 grams IV over 4 hours, notify physician and recheck serum magnesium level 4 hours after completion of appropriate replacement dose. Infuse each 1 gm Magnesium sulfate over 1 hour. Each 1 gm delivers 8.1 mEq Magnesium., Admission/Obs/Extended Recovery 03/03/2018 9:28 AM PIANO MECHANIC 50 mg metoprolol XL (TOPROL XL) tablet 50 mg Given 50 mg, Oral, DAILY, First dose on 03/03/18 at 0900, Until Discontinued, Hold for heart rate < 50 bpm or systolic BP < 90 tablets may be cut in half, DO NOT CRUSH or CHEW, Admission/Obs/Extended Recovery milk of magnesia (CONC) oral suspension 10 mL 10 mL, Oral, EVERY 6 HOURS PRN, Starting Mon03/02/18 at 1131, Until 03/03/18 at 1233, Constipation PO, 10 mL CONC=30 mL MOM., Admission/Obs/Extended Recovery ondansetron (ZOFRAN) injection 4 mg 4 mg, Intravenous, EVERY 6 HOURS PRN, Starting Mon03/02/18 at 2131, Until 03/03/18 at 1233, Nausea/Vomiting Injectable 03/03/2018 9:28 AM PIANO MECHANIC [address] (PROTONIX) tablet 40 mg Given 40 mg, Oral, TWICE DAILY, First dose on Mon03/02/18 at 2100, Until Discontinued, Do not crush or chew tablet., Admission/Obs/Extended Recovery 40 mg Given 03/02/2018 11:07 PM PIANO MECHANIC potassium chloride oral solution 40-60 mEq 40-60 mEq, Per NG tube, NEEDED, Starting Mon03/02/18 at 1800, Until 03/03/18 at 1233, Other..., For potassium replacement, See admin instructions, If urine output < 30 mL/hr or SCr >2 mg/dL, check with physician prior to giving K+ replacement. - K 3-4 mmol/L, administer KCl 40 mEq PO/NG x1 dose - K 2.5-2.9 mmol/L, administer KCl 60 mEq PO/NG x1 dose AND notify physician for additional dosing - K < 2.5 mmol/L notify physician for dosing Recheck serum potassium two hours after completion of appropriate replacement dose. Repeat this standing order x 2. Notify physician if serum potassium < 3.3 mmol/L after three replacements. Do NOT break or crush tablet, Admission/Obs/Extended Recovery 03/03/2018 9:28 AM PIANO MECHANIC 40 mEq potassium chloride SR (K-DUR) tablet Given 40-60 mEq 40-60 mEq, Oral, NEEDED, Starting Mon03/02/18 at 1800, Until 03/03/18 at 1233, Other..., For potassium replacement, See admin instructions, If urine output < 30 mL/hr or SCr >2 mg/dL, check with physician prior to giving K+ replacement. - K 3-4 mmol/L, administer KCl 40 mEq PO/NG x1 dose - K 2.5-2.9 mmol/L, administer KCl 60 mEq PO/NG x1 dose AND notify physician for additional dosing - K < 2.5 mmol/L notify physician for dosing Recheck serum potassium two hours after completion of appropriate replacement dose. Repeat this standing order x 2. Notify physician if serum potassium < 3.3 mmol/L after three replacements. Do NOT break or crush tablet, Admission/Obs/Extended Recovery 03/03/2018 9:28 AM PIANO MECHANIC 1 tablet sacubitril/valsartan (ENTRESTO) 24/26 mg Given tablet 1 tablet 1 tablet, Oral, TWICE DAILY, First dose on Mon03/02/18 at 2100, Until Discontinued, Admission/Obs/Extended Recovery 1 tablet Given 03/02/2018 11:16 PM PIANO MECHANIC 03/03/2018 9:28 AM PIANO MECHANIC 50 mg sertraline (ZOLOFT) tablet 50 mg Given 50 mg, Oral, DAILY, First dose on Mon03/03/18 at 0900, Until Discontinued, Admission/Obs/Extended Recovery 03/02/2018 4:49 PM PIANO MECHANIC 100 mL/hr sodium chloride 0.9 % infusion Given - New 1,000 mL, Intravenous, at 100 mL/hr, Bag CONTINUOUS, Starting Mon03/02/18 at 1145, Until Mon03/03/18 at 1233, -EF >35%: NS @ 100 mL/hr to be started the morning of procedure (not to exceed 750 mL) -EF <35%: NS @ 50 mL/hr to be started the morning of procedure (not to exceed 500 mL), Pre-Op temazepam (RESTORIL) capsule 15 mg 15 mg, Oral, AT BEDTIME PRN, Starting Mon03/02/18 at 1131, Until Mon03/03/18 at 1233, Insomnia, Admission/Obs/Extended Recovery 03/02/2018 7:40 PM PIANO MECHANIC 1,500 mg 200 mL/hr vancomycin (VANCOCIN) 1,500 mg in Given - New dextrose 5% (D5W) IVPB Bag 1,500 mg (rounded from 1,489.5 mg=15 mg/kg 99.3 kg), Intravenous, 300 mL, Administer over 90 Minutes, EVERY 12 HOURS, 2 doses, First dose on Mon03/02/18 at 1945, Last dose on Mon03/03/18 at 0745, -Give pre-op dose in pre/post or ICU within 2 hours prior to incision. Give post-op dose 12 hours after pre-op dose. -Note Pharmacokinetic Monitoring: Please record infusion start time (Action=Given) and stop time (Action=Completed) of dose when blood levels are drawn., For patients allergic to B-lactam, Pre-Op in this encounter
--- OUTSIDE RECORDS SUMMARY | 2018-05-09 17:58 | XMS REPORT | Encounter Summary ---
Author Author [facility] Organization [facility] Address Unknown Phone Unavailable Care Team Providers Care Insurance Underwriter Name Role Phone Erum Foreman MD PCP Erum Foreman MD 100 Encounter Details Care Team Description Date Type Department Todd Sauer MD [address] [facility] [place], [place] [id number] 03/04/2018 Hospital Cardiovascular Medicine Encounter [facility] [place], [place] [id number] Social History Date Tobacco Use Types Packs/Day [...] EVALUATION - ICD Routine 03/04/2018 9:40 PM KNUCKLE BENDER in this encounter Visit Diagnoses Not on filein this encounter
--- OUTSIDE RECORDS SUMMARY | 2018-05-09 17:58 | XMS REPORT | Encounter Summary ---
Author Author [facility] Organization [facility] Address Unknown Phone Unavailable Care Team Providers Care Inspector Salvage Name Role Phone Erum Foreman MD PCP Erum Foreman MD 100 Encounter Details Care Team Description Date Type Department Anton Figueroa MD [address] [facility] [place] [address] [phone] Canceled (Office-Scheduling Error) 03/21/2018 [facility] Cardiovascular Medicine Encounter Remote Device Check [phone] Social History Date Tobacco Use Types Packs/Day [...] as of this encounter Plan of Treatment Order Schedule Name Priority Associated Diagnoses 1 Occurrences starting 03/21/2018 DEVICE EVALUATION - REMOTE ICD Routine Cardiac device in situ as of this encounter Procedures Comments Procedure Name Priority Date/Time Associated Diagnosis DEVICE EVALUATION - Routine 03/21/2018 Cardiac device in situ REMOTE ICD 3:28 PM ASPHALT COATER in this encounter Results * DEVICE EVALUATION - REMOTE ICD (03/21/2018 3:28 PM ASPHALT COATER) RV Lead Developer Programmer Analyst [employer] OTHER OUTSIDE LAB RV Lead Model [...] Lead Coil Single OTHER OUTSIDE LAB Generator Developer Programmer Analyst [employer] OTHER OUTSIDE LAB Generator Implnat Date 03/02/2018 [...] No OTHER OUTSIDE LAB BITA/EOL Indicator Per transmitter/sas programmer remote OTHER OUTSIDE LAB Wireless Generator Yes OTHER OUTSIDE LAB Daily Citra Threshld Off OTHER OUTSIDE LAB Alert? Average Venticular Rate Off OTHER OUTSIDE LAB AT/AF On/Off Enrollment Date 04/18/17 OTHER OUTSIDE LAB VF Detection/Therapy Off On OTHER OUTSIDE LAB Remote Monitor Serial# [id number] OTHER OUTSIDE LAB RV Lead MRI Conditional Yes OTHER OUTSIDE LAB Remote Connectivity Cellular adaptor OTHER OUTSIDE LAB Accssory Serial Number CardioMessenger Smart OTHER OUTSIDE LAB Known Diagnosed VT VT No OTHER OUTSIDE LAB ATP No OTHER OUTSIDE LAB Device Shock No OTHER OUTSIDE LAB Device Remote Manual No OTHER OUTSIDE LAB Downloads Next Remote Check Due 06/15/18 OTHER OUTSIDE LAB Atrial Lead Developer Programmer Analyst [employer] OTHER OUTSIDE LAB Atrial Lead Model # PRO MRI SOLIA S 53 OTHER OUTSIDE LAB Atrial Lead Serial # [id number] OTHER OUTSIDE LAB Atrial Lead Implant Date 03/02/2018 OTHER OUTSIDE LAB Atrial Lead No OTHER OUTSIDE LAB Investigational Atrial Lead Fixation active fixation OTHER OUTSIDE LAB Atrial Lead Polarity Bipolar OTHER OUTSIDE LAB Atrial Lead Pin Connector IS1 OTHER OUTSIDE LAB Atrial Lead MRI Yes OTHER OUTSIDE LAB Conditional Generator Model # ILIVIA 7 DR-T OTHER OUTSIDE LAB Generator Serial # [id number] OTHER OUTSIDE LAB Atrial Lead Diaph. 10 OTHER OUTSIDE LAB Stimulation Initial Rhythm -VS OTHER OUTSIDE LAB -VS% AP 28% OTHER OUTSIDE LAB -FOREIGN EXCHANGE POSITION CLERK% FOREIGN EXCHANGE POSITION CLERK 0% OTHER OUTSIDE LAB # High AT/AF [...] intermittent loss of atrial capture. Ap 30%, Knit Goods Mender 0%. No other events and this is first time we have received this alert. Implant was 03/02/18. Pt is scheduled to f/u 04/30/18 with ICD check with Ramandeep Sabillon to see about seeing pt prior to this.Pt lives in [facility]. Report to Dr. Figueroa. [03/21/2018 3:33:27 [...] Address City/State/Zipcode Phone Number OTHER OUTSIDE LAB in this encounter Visit Diagnoses Diagnosis Cardiac device in situ Unspecified cardiac device in situ in this encounter
--- OUTSIDE RECORDS SUMMARY | 2018-05-09 17:58 | XMS REPORT | Encounter Summary ---
Author Author [facility] Organization [facility] Address Unknown Phone Unavailable Care Team Providers Care Computer Compositor Name Role Phone Erum Foreman MD PCP Erum Foreman MD 100 Encounter Details Care Team Description Date Type Department Jose Sharp RN Cardiac device in situ (Primary Dx) 03/04/2018 Orders Only Cardiovascular Medicine [facility] [place], [place] [id number] Social History Date Tobacco Use Types Packs/Day [...] Treatment Order Schedule Name Priority Associated Diagnoses Every 12 Weeks for 50 Occurrences starting 03/04/2018 until 03/04/2024, 1 completed DEVICE EVALUATION - REMOTE ICD Routine Cardiac device in situ as of this encounter Results * DEVICE EVALUATION - REMOTE ICD (03/21/2018 3:28 PM CRYSTAL GROWING TECHNICIAN) RV Lead Human Services Program Specialist [employer] OTHER OUTSIDE LAB RV Lead Model # [place] ProMRI S 65 OTHER OUTSIDE LAB RV Lead Serial # [id number] OTHER OUTSIDE LAB RV Lead Implant Date 04/18/2017 OTHER OUTSIDE LAB RV Lead Fixation active fixation OTHER OUTSIDE LAB RV Lead Location RV mid septum OTHER OUTSIDE LAB RV Lead Pin Connector ICD IS1 OTHER OUTSIDE LAB RV Lead Coil Single OTHER OUTSIDE LAB Generator Human Services Program Specialist [employer] OTHER OUTSIDE LAB Generator Implnat Date [...] No OTHER OUTSIDE LAB BITA/EOL Indicator Per transmitter/javascript programmer OTHER OUTSIDE LAB Wireless Generator Yes OTHER OUTSIDE LAB Daily [place] Threshld Off OTHER OUTSIDE LAB Alert? Average Venticular Rate Off OTHER OUTSIDE LAB AT/AF On/Off Enrollment Date 04/18/17 OTHER OUTSIDE LAB VF Detection/Therapy Off On OTHER OUTSIDE LAB Remote Monitor Serial# [id number] OTHER OUTSIDE LAB RV Lead MRI Conditional Yes OTHER OUTSIDE LAB Remote Connectivity Cellular adaptor OTHER OUTSIDE LAB Accssory Serial Number CardioMessenger Smart OTHER OUTSIDE LAB Known Diagnosed VT VT No OTHER OUTSIDE LAB ATP No OTHER OUTSIDE LAB Device Shock No OTHER OUTSIDE LAB Device Remote Manual No OTHER OUTSIDE LAB Downloads Next Remote Check Due 06/15/18 OTHER OUTSIDE LAB Atrial Lead Human Services Program Specialist [employer] OTHER OUTSIDE LAB Atrial Lead Model [...] DR-T OTHER OUTSIDE LAB Generator Serial # [id number] OTHER OUTSIDE LAB Atrial Lead Diaph. 10 OTHER OUTSIDE LAB Stimulation Initial Rhythm -VS OTHER OUTSIDE LAB -VS% AP 28% OTHER OUTSIDE LAB -BIODIESEL PRODUCTION ASSOCIATE% BIODIESEL PRODUCTION ASSOCIATE 0% OTHER OUTSIDE LAB # High AT/AF [...] - No Charge. [04/20/2018 12:20:43 PM - AMANDA, JUHI] Remote alert received and reviewed.Alert for unsuccessful atrial threshold test. See attached for details. Test EGM does show possible intermittent loss of atrial capture. Ap 30%, Credit Counselor 0%. No other events and this is first time we have received this alert. Implant was 03/02/18. Pt is scheduled to f/u 04/30/18 with ICD check with Ramandeep Arevalo. Esteban IB msg Sabillon to see about seeing pt prior to this.Pt lives in [facility]. Report to Dr. Figueroa. [03/21/2018 3:33:27 [...] Visit Diagnoses Diagnosis Cardiac device in situ - Primary Unspecified cardiac device in situ in this encounter
--- OUTSIDE RECORDS SUMMARY | 2018-05-09 17:58 | XMS REPORT | Encounter Summary ---
Author Author [facility] Organization [facility] Address Unknown Phone Unavailable Care Team Providers Care Business Representative Name Role Phone Erum Foreman MD PCP Erum Foreman MD 100 Reason for Visit * Reason Comments Transition Of Care Encounter Details Care Team Description Date Type Department Erum Foreman MD [address] [facility] [address] [place] [address] Transition Of Care 03/05/2018 Telephone [facility] Physicians - Internal Medicine [address] [facility] [place] [address] Social History Date Tobacco Use [...] encounter Miscellaneous Notes * Telephone Encounter - Dave Chi - 03/06/2018 9:50 AM MANAGER DRUG SAFETY Hospital Discharge Follow Up Reached Patient:No, attempted twice. Admission Information: Hospital Name: [facility] Admission Date: 03/02/2018 Discharge Date: 03/03/2018 Discharge Diagnosis: Nonischemic cardiomyopathy, Chronic anticoagulation, Cardiac arrest, Anoxic brain injury, Impaired mobility and ADLs, Cognitive impairment, Obesity BMI 30-39.9, Paroxysmal atrial fibrillation, Chronic systolic heart failure, NICM Procedure: 03/02/2018 Insertion/replacement implantable defibrillator system and right atrial lead, Fluoroscopy-cardiac Was this a readmission? No If yes, reason: N/A Hospital Services: Planned Today's call is 1(business) days post discharge Scheduling Follow-up Appointment Upcoming appointment date and time and with whom scheduled: Future Appointments Date Time Provider Department Center 05/03/2018 12:30 AM MAC REMOTE MONITORING MACREMOTEHRM CVM Remote 07/18/2018 1:00 PM Erum Foreman MD [facility] IM 01/23/2019 1:00 PM Belén Garg MD [facility] Rehab [place] PCP appointment scheduled?Yes, Date: 07/18/2018 PCP primary location: [facility] Gen Medicine Specialist appointment scheduled? No Both PCP and Specialist appointment scheduled: No GER DRUG SAFETY in this encounter Plan of Treatment Not on fileas of this encounter Visit Diagnoses Not on filein this encounter
--- OUTSIDE RECORDS SUMMARY | 2018-05-09 17:58 | XMS REPORT | Encounter Summary ---
Author Author [facility] Organization [facility] Address Unknown Phone Unavailable Care Team Providers Care Powerhouse Tender Name Role Phone Erum Foreman MD PCP Erum Foreman MD 100 Reason for Visit * Reason Comments Cardiac Device Remote in [employer]ik remote interrogation. Communication established to remote Enrollment transmitter. Encounter Details Care Team Description Date Type Department Rafy Huynh RN Cardiac Device Remote Enrollment (in [employer] remote interrogation. Communication established to remote transmitter. ) 03/05/2018 [facility]ation [facility] [address] [place], [place] [id number] Social History Date Tobacco Use Types Packs/Day [...] as of this encounter Progress Notes * Rafy Huynh RN - 03/05/2018 8:03 AM EMERGENCY ROOM NURSE Patient was enrolled in [employer] home monitoring s/p implant. Communication has been established between the patients remote transmitter and [facility] website. Awaiting initial transmission to be received. Initial transmission scheduled for 03/16/18 according to website. DB. GENCY ROOM NURSE in this encounter Plan of Treatment Not on fileas of this encounter Visit Diagnoses Not on filein this encounter
--- OUTSIDE RECORDS SUMMARY | 2018-05-09 17:59 | XMS REPORT | Encounter Summary ---
Author Author [facility] Organization [facility] Address Unknown Phone Unavailable Care Team Providers Care After School Driver Name Role Phone Erum Foreman MD PCP Erum Foreman MD 100 Encounter Details Care Team Description Date Type Department Naomi Cruz APRN-Irina [address] [facility] [place], [place] [phone] 02/26/2018 Hospital Cardiovascular Medicine Encounter [facility] [place], [place] [phone] Social History Date Tobacco Use Types Packs/Day [...] tablet 1 tablet tablet by mouth daily. 10/03/2017 03/02/2018 amiodarone (CORDARONE) Take 1 tablet 30 tablet 2 200 mg tablet by mouth daily. Take with food. 12/26/2017 04/04/[address] Take 1 tablet 90 tablet 1 (PROTONIX) 40 mg tablet by mouth twice daily. as of this encounter Plan of Treatment Not on fileas of this encounter Procedures Comments Procedure Name Priority Date/Time Associated Diagnosis CBC Routine 02/26/2018 Atrial fibrillation, 1:11 PM PROGRESSIVE CARE MANAGER unspecified type (HCC) MAGNESIUM Routine 02/26/2018 Atrial fibrillation, 1:11 PM PROGRESSIVE CARE MANAGER unspecified type (HCC) BASIC METABOLIC PANEL Routine 02/26/2018 Atrial fibrillation, 1:11 PM PROGRESSIVE CARE MANAGER unspecified type (HCC) in this encounter Results * MAGNESIUM (02/26/2018 1:11 PM PROGRESSIVE CARE MANAGER) Magnesium 2.0 1.6 - 2.6 mg/dL [facility] Specimen Blood Performing Organization Address City/State/Zipcode Phone Number [facility] [address] [place] [address] * CBC (02/26/2018 1:11 PM PROGRESSIVE CARE MANAGER) White Blood Cells 6.5 4.5 - 11.0 K/UL [facility] RBC 5.38 4.4 - 5.5 M/UL [facility] Hemoglobin 14.9 13.5 - 16.5 GM/DL [facility] Hematocrit 45.0 40 - 50 % [facility] MCV 83.7 80 - 100 FL [facility] MCH 27.7 26 - 34 PG [facility] MCHC 33.1 32.0 - 36.0 G/DL [facility] RDW 14.5 11 - 15 % [facility] Platelet Count 249 150 - 400 K/UL [facility] MPV 8.9 7 - 11 FL [facility] Specimen Blood Performing Organization Address City/[facility] Phone Number [facility] [address] [place] [address] * BASIC METABOLIC PANEL (02/26/2018 1:11 PM PROGRESSIVE CARE MANAGER) Sodium 136 (L) 137 - 147 MMOL/L [facility] Potassium 4.1 3.5 - 5.1 MMOL/L [facility] Chloride 102 98 - 110 MMOL/L [facility] CO2 28 21 - 30 MMOL/L [facility] Anion Gap 6 3 - 12 [facility] Glucose 94 70 - 100 MG/DL [facility] Blood Urea Nitrogen 11 7 - 25 MG/DL [facility] Creatinine 0.92 0.4 - 1.24 MG/DL [facility] Calcium 9.5 8.5 - 10.6 MG/DL [facility] [...] for questions. Specimen Blood Performing Organization Address City/[facility]/Zipcode Phone Number MAIN LAB [address] [place] [address] in this encounter Visit Diagnoses Diagnosis Atrial fibrillation, unspecified type (HCC) in this encounter
--- OUTSIDE RECORDS SUMMARY | 2018-05-09 17:59 | XMS REPORT | Encounter Summary ---
Author Author [facility] Organization [facility] Address Unknown Phone Unavailable Care Team Providers Care Yield Improvement Engineer Name Role Phone Erum Foreman MD PCP Erum Foreman MD 100 Reason for Referral * Consult, Test & Treat (Routine) Referred By Contact Referred To Contact Status Reason Specialty Diagnoses / [place] [address] [place] [address] [address] [place] [address] New Request Specialty Services Diagnoses Required Anoxic brain injury (HCC) Cognitive impairment Memory impairment Reason for Visit * Reason Comments Order Needed Encounter Details Care Team Description Date [place] [address] [place] [address] [address] [place] [address] Order Needed 02/27/2018 Telephone [facility] Physicians - Internal Medicine [address] [facility] [place] [address] Social History Date Tobacco Use [...] Telephone Encounter - Deborah Montgomery MA - 02/27/2018 1:40 PM SALES REPRESENTATIVE PUBLIC UTILITIES Needs new referral faxed to [phone] for Speech Therapy. Reasses. S REPRESENTATIVE PUBLIC UTILITIES in this encounter Plan of Treatment Order Schedule Name Priority Associated Diagnoses Ordered: 02/27/2018 AMB REFERRAL TO SPEECH THERAPY Routine Anoxic brain injury (HCC) Cognitive impairment Memory impairment as of this encounter Visit Diagnoses Diagnosis Anoxic brain injury (HCC) - Primary Anoxic brain damage Cognitive impairment Unspecified persistent mental disorders due to conditions classified elsewhere Memory impairment Memory loss in this encounter
--- OUTSIDE RECORDS SUMMARY | 2018-05-09 17:59 | XMS REPORT | Encounter Summary ---
Author Author [facility] Organization [facility] Address Unknown Phone Unavailable Care Team Providers Care Geophysical Computer Name Role Phone Erum Foreman MD PCP Erum Foreman MD 100 Reason for Visit * Reason Comments Atrial fibrillation Encounter Details Care Team Description Date Type Department Erum Foreman MD [address] [facility] [address] [place] [address] Atrial fibrillation 02/20/2018 Telephone [facility] Physicians - Internal Medicine [address] [facility] [place] [address] Social History Date Tobacco Use [...] encounter Miscellaneous Notes * Telephone Encounter - Erum Foreman MD - 02/21/2018 8:19 AM SALESPERSON WOMEN'S DRESSES THANK YOU SPERSON WOMEN'S DRESSES * Telephone Encounter - Deborah Montgomery MA - 02/20/2018 10:49 AM SALESPERSON WOMEN'S DRESSES Per TE in chart Dr. Sauer's office received the father's VM and it has been addressed. SPERSON WOMEN'S DRESSES * Telephone Encounter - Deborah Montgomery MA - 02/20/2018 10:46 AM SALESPERSON WOMEN'S DRESSES Patient's father left 2 VMs regarding patient's a fib. Father said that Dr. Sauer had taken him off the amiodarone and he had been doing fine but now they think he might be in a fib. Father states patient's HR is going in the 60s and up to the 90s. He said that he called and LVM for Dr. Sauer's office as well. In the second VM the father stated that his son's condition had improved and his HR had returned to normal. SPERSON WOMEN'S DRESSES in this encounter Plan of Treatment Not on fileas of this encounter Visit Diagnoses Not on filein this encounter
--- OUTSIDE RECORDS SUMMARY | 2018-05-09 17:59 | XMS REPORT | Encounter Summary ---
Author Author [facility] Organization [facility] Address Unknown Phone Unavailable Care Team Providers Care Lens Finisher Name Role Phone Erum Foreman MD PCP Erum Foreman MD 100 Encounter Details Care Team Description Date Type Department Angeline Lutz, TECHNOLOGY LAB TEACHER [address] [facility] [address] [place] [address] NICM (nonischemic cardiomyopathy) (HCC) (Primary Dx); Atrial fibrillation, unspecified type (HCC) 02/28/2018 Pre-Admit XDD CARDIOLOGY Orders Only Social History [...] fileas of this encounter Visit Diagnoses Diagnosis NICM (nonischemic cardiomyopathy) (HCC) - Primary Other primary cardiomyopathies Atrial fibrillation, unspecified type (HCC) in this encounter
--- OUTSIDE RECORDS SUMMARY | 2018-05-09 17:59 | XMS REPORT | Encounter Summary ---
Author Author [facility] Organization [facility] Address Unknown Phone Unavailable Care Team Providers Care Site Safety Manager Name Role Phone Erum Foreman MD PCP Erum Foreman MD 100 Reason for Visit * Reason Comments History And Physical ICD upgrade Encounter Details Care Team Description Date Type Department Naomi Cruz APRN-C [address] [facility] [place] [address] [phone] History And Physical (ICD upgrade) 02/26/2018 Office Visit Cardiovascular Medicine [place] [address] [address] [place] [address] Social History Date Tobacco Use Types Packs/Day [...] Vital Signs Time Taken Vital Sign Reading 02/26/2018 12:48 PM WELDER/FABRICATOR Blood Pressure 108/80 02/26/2018 12:48 PM WELDER/FABRICATOR Pulse 66 - Temperature - - Respiratory Rate - - Oxygen Saturation - - Inhaled Oxygen - Concentration 02/26/2018 12:48 PM WELDER/FABRICATOR Weight 102.1 kg (225 lb) 02/26/2018 12:48 PM WELDER/FABRICATOR Height 160 cm (5' 3") 02/26/2018 12:48 PM WELDER/FABRICATOR Body Mass Index 39.86 in this encounter Functional Status Date of [...] as of this encounter Progress Notes * Naomi Cruz APRN-C - 02/26/2018 1:30 PM WELDER/FABRICATOR Date of Service: 02/26/2018 Je Costa is [...] his EF was 35%. He saw Dr. Sauer for follow-up and was started on Entresto. [...] Diagnosis Date Noted PAF (paroxysmal atrial fibrillation) (HCC) 10/11/2017 Added automatically from request for surgery [id number] Hospital discharge follow-up 10/11/2017 Atrial fibrillation (HCC) 09/28/2017 Added automatically from request for surgery [id number] Obesity (BMI 30-39.9) 09/12/2017 Establishing care with new doctor, encounter for 07/31/2017 Depression 07/31/2017 Adjustment disorder with mixed anxiety and depressed mood 05/10/2017 Cognitive impairment 05/04/2017 Memory impairment 05/04/2017 Vision impairment 05/04/2017 Motor apraxia 05/04/2017 Impaired mobility and ADLs 05/03/2017 Chronic anticoagulation 05/03/2017 Anoxic brain injury (HCC) 04/04/2017 Cardiac arrest (HCC) 03/31/2017 Nonischemic cardiomyopathy ([facility]) 10/31/2013 Chronic anticoagulation 10/28/2013 Eliquis Chronic headaches 06/06/2011 Review of Systems Constitution: Negative. HENT: Negative. [...] Diagnoses Name Primary? PAF (paroxysmal atrial fibrillation) ([facility]) Yes Nonischemic cardiomyopathy ([facility]) Assessment and Plan 1. Paroxysmal atrial arrhythmia [...] upgrade to a dual-chamber device by Dr. Sauer on March 02. We discussed the pre-procedure [...] tablet Take one tablet by mouth daily. ER/FABRICATOR in this encounter Plan of Treatment Not on fileas of this encounter Procedures Comments Procedure Name Priority Date/Time Associated Diagnosis ECG-SCAN 02/26/2018 12:00 AM WELDER/FABRICATOR in this encounter Results * ECG-SCAN (02/26/2018 12:00 AM WELDER/FABRICATOR) Narrative Performed At Ordered by an unspecified provider. in this encounter Visit Diagnoses Diagnosis PAF (paroxysmal atrial fibrillation) (HCC) - Primary Atrial fibrillation Nonischemic cardiomyopathy (HCC) Other primary cardiomyopathies in this encounter
--- OUTSIDE RECORDS SUMMARY | 2018-05-09 17:59 | XMS REPORT | Encounter Summary ---
Author Author [facility] Organization [facility] Address Unknown Phone Unavailable Care Team Providers Care Grocery Cashier Name Role Phone Erum Foreman MD PCP Erum Foreman MD 100 Reason for Visit * Auth/Cert Referred By Contact Referred To Contact Status Reason Specialty Diagnoses / Procedures Diagnoses PAF (paroxysmal atrial fibrillation) (HCC) P rocedures OR INSJ/RPLCMT PERM DFB W/TRNSVNS LDS 1/DUAL CHMBR INSERTION/ REPLACEMENT IMPLANTABLE DEFIBRILLATOR SYSTEM AND RIGHT ATRIAL LEAD (UPGRADE TO DUAL ICD FROM VVI ICD) Encounter Details Care Team Description Date Type Department Anton Figueroa MD [address] [address] INSERTION/ REPLACEMENT IMPLANTABLE DEFIBRILLATOR SYSTEM AND RIGHT ATRIAL LEAD (UPGRADE TO DUAL ICD FROM VVI ICD) 03/02/2018 Surgery HC2 EP LAB [address] [facility] [address] Social History Date Tobacco Use [...] Taken Vital Sign Reading 03/03/2018 9:48 AM COAL DRIER OPERATOR Blood Pressure 125/72 03/03/2018 9:48 AM COAL DRIER OPERATOR Pulse 75 03/03/2018 6:10 AM COAL DRIER OPERATOR Temperature 37 C (98.6 F) - Respiratory Rate - 03/03/2018 6:10 AM COAL DRIER OPERATOR Oxygen Saturation 95% - Inhaled Oxygen - Concentration 03/02/2018 11:55 AM COAL DRIER OPERATOR Weight 99.6 kg (219 lb 9.3 oz) 03/02/2018 11:55 AM COAL DRIER OPERATOR Height 167.6 cm (5' 6") 03/02/2018 11:55 AM COAL DRIER OPERATOR Body Mass Index 35.44 in this encounter [...] EVALUATION - ICD Routine 03/04/2018 9:40 PM COAL DRIER OPERATOR CHEST 2 VIEWS Routine 03/03/2018 6:36 AM COAL DRIER OPERATOR CBC Routine 03/03/2018 4:00 AM COAL DRIER OPERATOR BASIC METABOLIC PANEL Routine 03/03/2018 4:00 AM COAL DRIER OPERATOR ECG 12-LEAD Routine 03/03/2018 2:00 AM COAL DRIER OPERATOR INJECTION VENOGRAPHY - Routine 03/02/2018 PAF (paroxysmal atrial EXTREMITY 9:25 PM COAL DRIER OPERATOR fibrillation) ([facility]) FLUOROSCOPY - CARDIAC Routine 03/02/2018 PAF (paroxysmal atrial 9:25 PM COAL DRIER OPERATOR fibrillation) ([facility]) INSERTION/ REPLACEMENT Routine 03/02/2018 PAF (paroxysmal atrial IMPLANTABLE DEFIBRILLATOR 9:25 PM COAL DRIER OPERATOR fibrillation) ([facility]) SYSTEM AND LEAD TELEMETRY STRIPS-SCAN 03/02/2018 12:00 AM COAL DRIER OPERATOR ECG-SCAN 03/02/2018 12:00 AM COAL DRIER OPERATOR in this encounter Results * DEVICE EVALUATION - ICD (03/04/2018 9:40 PM COAL DRIER OPERATOR) RV Lead Punch Card Operator [employer] OTHER OUTSIDE LAB RV Lead Model [...] Lead Coil Single OTHER OUTSIDE LAB Generator Punch Card Operator [employer] OTHER OUTSIDE LAB Generator Implnat Date [...] No OTHER OUTSIDE LAB BITA/EOL Indicator Per transmitter/z os mainframe systems programmer OTHER OUTSIDE LAB Wireless Generator Yes OTHER OUTSIDE LAB Daily Shafer Threshld Off OTHER OUTSIDE LAB Alert? Average Venticular Rate Off OTHER OUTSIDE LAB AT/AF On/Off Enrollment Date 04/18/17 OTHER OUTSIDE LAB VF Detection/Therapy Off On OTHER OUTSIDE LAB Remote Monitor Serial# [id number] OTHER OUTSIDE LAB RV Lead MRI Conditional Yes OTHER OUTSIDE LAB Remote Connectivity Cellular adaptor OTHER OUTSIDE LAB Accssory Serial Number CardioMessenger Smart OTHER OUTSIDE LAB Known Diagnosed VT VT No OTHER OUTSIDE LAB ATP No OTHER OUTSIDE LAB Device Shock No OTHER OUTSIDE LAB Device Remote Manual No OTHER OUTSIDE LAB Downloads Next Remote Check Due 05/02/18 OTHER OUTSIDE LAB Atrial Lead Punch Card Operator [employer] OTHER OUTSIDE LAB Atrial Lead Model [...] * CHEST 2 VIEWS (03/03/2018 6:36 AM COAL DRIER OPERATOR) Impressions Performed At Interval cardiac conduction device [...] Interface, Radiant Results - 03/03/2018 9:23 AM COAL DRIER OPERATOR Procedure: CHEST 2 VIEWS Clinical Indication: Post [...] on 03/03/2018 9:09 AM. Performing Organization Address City/State/Zipcode Phone Number [facility] RESULTS * CBC (03/03/2018 4:00 AM COAL DRIER OPERATOR) White Blood Cells 7.2 4.5 - 11.0 K/UL [facility] RBC 5.00 4.4 - 5.5 M/UL [facility] Hemoglobin 13.9 13.5 - 16.5 GM/DL [facility] Hematocrit 41.7 40 - 50 % MAIN LAB MCV 83.5 80 - 100 [place] [facility] MCH 27.8 26 - 34 [place] [facility] MCHC 33.3 32.0 - 36.0 G/DL MAIN LAB RDW 14.5 11 - 15 % [facility] Platelet Count 198 150 - 400 K/[facility] MPV 9.0 7 - 11 [place] [facility] Specimen Blood Performing Organization Address City/[facility]/Zipcode Phone Number [facility] [address] [place] [address] * BASIC METABOLIC PANEL (03/03/2018 4:00 AM COAL DRIER OPERATOR) Sodium 138 137 - 147 MMOL/L [facility] Potassium 3.5 3.5 - 5.1 MMOL/L [facility] Chloride 105 98 - 110 MMOL/L MAIN LAB CO2 27 21 - 30 MMOL/L [facility] Anion Gap 6 3 - 12 [facility] Glucose 112 (H) 70 - 100 MG/DL [facility] Blood Urea Nitrogen 11 7 - 25 MG/DL MAIN LAB Creatinine 0.90 0.4 - 1.24 MG/DL MAIN LAB Calcium 8.7 8.5 - 10.6 [...] for questions. Specimen Blood Performing Organization Address City/[facility] Phone Number [facility] [address] [place] [address] * EP STUDY (03/02/2018 9:25 PM COAL DRIER OPERATOR) Narrative Performed At OTHER OUTSIDE LAB ELECTROPHYSIOLOGY [...] monitored throughout the procedure by the laborer yard staff and myself. The total [id number] time was 44 minutes (2010 to 2054). [...] LAB * EP DEVICE (03/02/2018 9:25 PM COAL DRIER OPERATOR) RV Lead Punch Card Operator [employer] OTHER OUTSIDE LAB RV Lead Model # [place] ProMRI S 65 OTHER OUTSIDE LAB RV Lead Serial # [id number] OTHER OUTSIDE LAB RV Lead Implant Date 04/18/2017 OTHER OUTSIDE LAB RV Lead Fixation active fixation OTHER OUTSIDE LAB RV Lead Location RV mid septum OTHER OUTSIDE LAB RV Lead Pin Connector ICD IS1 OTHER OUTSIDE LAB RV Lead Coil Single OTHER OUTSIDE LAB Generator Punch Card Operator [employer] OTHER OUTSIDE LAB Generator Implnat Date [...] No OTHER OUTSIDE LAB BITA/EOL Indicator Per transmitter/z os mainframe systems programmer OTHER OUTSIDE LAB Wireless Generator Yes OTHER OUTSIDE LAB Daily Shafer Threshld Off OTHER OUTSIDE LAB Alert? Average Venticular Rate Off OTHER OUTSIDE LAB AT/AF On/Off Enrollment Date 04/18/17 OTHER OUTSIDE LAB VF Detection/Therapy Off On OTHER OUTSIDE LAB Remote Monitor Serial# [id number] OTHER OUTSIDE LAB RV Lead MRI Conditional Yes OTHER OUTSIDE LAB Remote Connectivity Cellular adaptor OTHER OUTSIDE LAB Accssory Serial Number CardioMessenger Smart OTHER OUTSIDE LAB Known Diagnosed VT VT No OTHER OUTSIDE LAB ATP No OTHER OUTSIDE LAB Device Shock No OTHER OUTSIDE LAB Device Remote Manual No OTHER OUTSIDE LAB Downloads Next Remote Check Due 05/02/18 OTHER OUTSIDE LAB Atrial Lead Punch Card Operator [employer]ot[employer]ik OTHER OUTSIDE LAB Atrial Lead Model [...] DF4 OTHER OUTSIDE LAB Model# EXPLANTED GENERATOR [id number] OTHER OUTSIDE LAB SERIAL# Generator Model # [...] monitored throughout the procedure by the laborer yard staff and myself. The total [id number] time was 44 minutes (2010 to 2054). [...] LAB * TELEMETRY STRIPS-SCAN (03/02/2018 12:00 AM COAL DRIER OPERATOR) Narrative Performed At Ordered by an unspecified provider. * ECG-SCAN (03/02/2018 12:00 AM COAL DRIER OPERATOR) Narrative Performed At Ordered by an unspecified provider. in this encounter Visit Diagnoses Diagnosis PAF (paroxysmal atrial fibrillation) (HCC) Atrial fibrillation in this encounter Admitting Diagnoses Diagnosis NICM [...] 1233, Indigestion/Heartburn, Admission/Obs/Extended Recovery 03/03/2018 9:28 AM COAL DRIER OPERATOR 5 mg apixaban (ELIQUIS) tablet 5 mg [...] Recovery 5 mg Given 03/02/2018 11:07 PM COAL DRIER OPERATOR HYDROcodone/acetaminophen (NORCO) 5/325 mg tablet 1 tablet [...] peripheral IV insertion, Pre-Op 03/03/2018 9:28 AM COAL DRIER OPERATOR 400 mg magnesium oxide (MAG-OX) tablet 400 mg Given 400 mg, Oral, TWICE DAILY, First dose on Mon03/02/18 at 2100, Until Discontinued, Delivers 241.3mg elemental magnesium per tab, Admission/Obs/Extended Recovery 400 mg Given 03/02/2018 11:07 PM COAL DRIER OPERATOR magnesium sulfate 1 g/D5W 100 mL IVPB 1 g, Intravenous, 100 mL, Administer over 1 Hours, NEEDED (TOBACCO WRAPPING MACHINE TENDER FROM RX), Starting Mon03/02/18 at 1800, Until [...] mEq Magnesium., Admission/Obs/Extended Recovery 03/03/2018 9:28 AM COAL DRIER OPERATOR 50 mg metoprolol XL (TOPROL XL) tablet [...] at 1233, Nausea/Vomiting Injectable 03/03/2018 9:28 AM COAL DRIER OPERATOR [address] (PROTONIX) tablet 40 mg Given 40 mg, Oral, TWICE DAILY, First dose on Mon03/02/18 at 2100, Until Discontinued, Do not crush or chew tablet., Admission/Obs/Extended Recovery 40 mg Given 03/02/2018 11:07 PM COAL DRIER OPERATOR potassium chloride oral solution 40-60 mEq 40-60 [...] crush tablet, Admission/Obs/Extended Recovery 03/03/2018 9:28 AM COAL DRIER OPERATOR 40 mEq potassium chloride SR (K-DUR) tablet [...] crush tablet, Admission/Obs/Extended Recovery 03/03/2018 9:28 AM COAL DRIER OPERATOR 1 tablet sacubitril/valsartan (ENTRESTO) 24/26 mg Given tablet 1 tablet 1 tablet, Oral, TWICE DAILY, First dose on Mon03/02/18 at 2100, Until Discontinued, Admission/Obs/Extended Recovery 1 tablet Given 03/02/2018 11:16 PM COAL DRIER OPERATOR 03/03/2018 9:28 AM COAL DRIER OPERATOR 50 mg sertraline (ZOLOFT) tablet 50 mg Given 50 mg, Oral, DAILY, First dose on Mon03/03/18 at 0900, Until Discontinued, Admission/Obs/Extended Recovery 03/02/2018 4:49 PM COAL DRIER OPERATOR 100 mL/hr sodium chloride 0.9 % infusion Given - New 1,000 mL, Intravenous, at 100 mL/hr, Bag CONTINUOUS, Starting Mon03/02/18 at 1145, Until 03/03/18 at 1233, -EF >35%: NS @ 100 mL/hr to be started the morning of procedure (not to exceed 750 mL) -EF <35%: NS @ 50 mL/hr to be started the morning of procedure (not to exceed 500 mL), Pre-Op temazepam (RESTORIL) capsule 15 mg 15 mg, Oral, AT BEDTIME PRN, Starting Mon03/02/18 at 1131, Until 03/03/18 at 1233, Insomnia, Admission/Obs/Extended Recovery 03/02/2018 7:40 PM COAL DRIER OPERATOR 1,500 mg 200 mL/hr vancomycin (VANCOCIN) 1,500 [...]
--- OUTSIDE RECORDS SUMMARY | 2018-05-09 17:59 | XMS REPORT | Encounter Summary ---
Author Author [facility] Organization [facility] Address Unknown Phone Unavailable Care Team Providers Care Zigzag Tunnel Elastic Operator Name Role Phone Erum Foreman MD [...] Details Care Team Description Date Type Department Logan Pena, JUVENAL [address] [place] [address] 03/02/2018 Anesthesia HC2 EP LAB Event [address] [facility] [place] [address] Anesthesia Record Responsible Anesthesiologist Anesthesia Start Time Anesthesia Stop Time Procedure Name 03/02/181934 INSERTION/ REPLACEMENT IMPLANTABLE DEFIBRILLATOR SYSTEM AND RIGHT ATRIAL LEAD (UPGRADE TO DUAL ICD FROM VVI ICD) (Left ) Date Time Event Comment 1933 Out of Pre 2018 Procedure 1934 Anes Start 1934 In Room Meds * No agents on file. * No blood administrations on file. Removal Type Details Placement Wounds 04/18/17; 1515; Left; Chest; Surgical 04/18/17 1515 by Zurdo, (NOT for Incision ROZ Lyle Pressure Injuries) Wounds 05/06/17; 0800; Anterior; Neck; Surgical 05/06/17 0800 by (NOT for Incision Yancy Nicolas RN Pressure Injuries) Wounds 05/06/17; 0800; Left, Lower; Abdomen; 05/06/17 0800 by (NOT for Surgical Incision Yancy Nicolas RN Pressure Injuries) Wounds 09/29/17; 1141; Left; Chest; Surgical 09/29/17 1141 by Je, (NOT for Incision; DERMBAOND OVER ROZ Salvador Pressure [id number] OVER NEW EXIT Injuries) SITE Wounds 09/29/17; 1141; CT exit x2; DERMABOND 09/29/17 1141 by Je, (NOT for OVER [id number]&COVADERM OVER CT ROZ Salvador Pressure EXIT SITE Injuries) Wounds 03/02/18; 2137; Chest; Surgical Incision 03/02/18 2137 by Shubham, (NOT for ROZ Zurita Pressure Injuries) 03/03/18 0836 by Yolanda Olmedo RN Peripheral 03/02/18; 1210; RN; R; 20 G; Therapy 03/02/18 1210 by ALFONSO Osborn completed; 03/03/18; 0836 ROZ Bautista 03/03/18 0836 by Yolanda Olmedo RN Peripheral 03/02/18; 1210; RN; L; Hand; 22 G; 03/02/18 1210 by ALFONSO Osborn Therapy completed; 03/03/18; 0836 ROZ Bautista 04/24/18 1951 by Josette Ocasio RN Peripheral 04/24/18; 1244; RN; L; Forearm; 20 G; 04/24/18 1244 by ALFONSO Olmedo 1.25 inches; 04/24/18; 195 ROZ Guerrero in this encounter Social History Date Tobacco Use Types Packs/Day [...]
[2018-05-09 18:00] LABS: BASOPHILS # (AUTO) 0.1 10^3/uL (0.0-0.1); BASOPHILS % (AUTO) 1 % (0-10); EOSINOPHILS # (AUTO) 0.3 10^3/uL (0.0-0.3); EOSINOPHILS % (AUTO) 3 % (0-10); HEMATOCRIT 44 % (40-54); HEMOGLOBIN 14.5 G/DL (13.3-17.7); LYMPHOCYTES # (AUTO) 2.3 X 10^3 (1.0-4.0); LYMPHOCYTES % (AUTO) 24 % (12-44); MEAN CORPUSCULAR HEMOGLOBIN 27 PG (25-34); MEAN CORPUSCULAR HGB CONC 33 G/DL (32-36); MEAN CORPUSCULAR VOLUME 83 FL (80-99); MEAN PLATELET VOLUME 10.7 FL (7.4-10.4); MONOCYTES # (AUTO) 0.7 X 10^3 (0.0-1.0); MONOCYTES % (AUTO) 7 % (0-12); NEUTROPHILS # (AUTO) 6.1 X 10^3 (1.8-7.8); NEUTROPHILS % (AUTO) 65 % (42-75); PLATELET COUNT 291 10^3/uL (130-400); RED CELL DISTRIBUTION WIDTH 14.1 % (10.0-14.5); WHITE BLOOD COUNT 9.4 10^3/uL (4.3-11.0)
--- OUTSIDE RECORDS SUMMARY | 2018-05-09 18:00 | XMS REPORT ---
Author Author BROOK WILSON Organization [facility] Address [address] [place] [address] Care Team Providers Care Director Of Recreation Therapy Name Role Phone BROOK WILSON Unavailable PROBLEMS Type Condition ICD9-CM Code LZE03-PW Code Onset Dates Condition Status SNOMED Code Problem Cardiomyopathy I42.9 Active 87569732 Problem Anoxic brain injury G93.1 Active 559722869 Problem Adjustment disorder with depressed mood F43.21 Active 61073814 Problem Cardiac defibrillator in place Z95.810 Active 129786941 Problem 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 I48.2 Active 040571531 Problem long term care phlebotomist (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.01 Active 934460434 Problem History of cardiac arrest Z86.74 Active 477283985 Problem Non-ischemic cardiomyopathy I42.8 Active 49947563 ALLERGIES Substance Reaction Event Type Date Status Penicillin V Potassium hives Drug Allergy Oct, Active ENCOUNTERS Encounter Location Date Diagnosis [place] [id number] [place] [address] 36471- 3910 Oct, Foreign body in subcutaneous tissue T14.8XXA [facility] [id number] [place] [address] 32756- 1099 Sep, 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 I48.2 ; Non-ischemic cardiomyopathy I42.8 ; Anoxic brain injury G93.1 and Adjustment disorder with depressed mood F43.21 [facility] [address], [place] [address] 1511 Aug, [facility] [id number] [place] [address] 03906- 3697 July, [facility] [id number] [place] [address] 88331- 0412 July, [facility] [id number] [place] [address] 20835- 4380 Jun, Adjustment disorder with depressed mood F43.21 [facility] [id number] [place] [address] 89969- 8461 Jun, [facility] [id number] [place] [address] 21233- 3697 Jun, [facility] [id number] [place] [address] 62494- 6309 May, [facility] [id number] [place] [address] 51841- 1126 May, [facility] [id number] [place] [address] 52968- 5015 May, [facility] [id number] [place] [address] 23632- 7344 May, [facility] [id number] [place] [address] 87903- 9560 May, History of cardiac arrest Z86.74 ; Cardiac defibrillator in place Z95.810 ; 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 I48.2 and Current moderate episode of major depressive disorder without prior episode F32.1 [facility] [id number] [place] [address] 02292- 1991 May, [facility] [id number] [place] [address] 69601- 4560 Mar, [facility] (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.01 [facility] [address], [place] [address]- 5446 Mar, [facility] [id number] [place] [address] 35061- 5375 Mar, [facility] (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.01 [facility] [address], [place] [address] 4271 Feb, Afib I48.91 [facility] [id number] [place] [address] 85305- 4096 Feb, long term care phlebotomist (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.01 [facility] [id number] [place] [address] 42011 -0747 Jan, Other viral agents as the cause of diseases classified elsewhere B97.89 ; Acute upper respiratory infection, unspecified J06.9 and Body aches R52 [place] [id number] [place] [address] 94721- 5045 Jan, Afib I48.91 [place] [address] 63256- 4466 Jan, Afib I48.91 and [facility] (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.01 [facility] [id number] [place] [address] 83206- 9724 Dec, Afib I48.91 [place] [id number] [place] [address] 97727- 1073 Dec, 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 I48.2 [facility] [id number] [place] [address] 28621- 6866 Nov, Hypertension I10 [place] [id number] [place] [address] 94081- 4769 Oct, 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 I48.2 [place] [id number] [place] [address] 34828- 1895 Oct, [facility] (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.01 [facility] [id number] [place] [address] 07619- 9981 Oct, 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 I48.2 [place] [id number] [place] [address] 98608- 4194 Oct, 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 I48.2 [facility] [id number] [place] [address] 13024- 3672 Sep, [facility] (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.01 ; Hypertension I10 ; Cardiomyopathy I42.9 and Afib I48.91 [place] [id number] [place] [address] 12336- 7231 Sep, long term care phlebotomist (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.01 ; Hypertension I10 ; Cardiomyopathy I42.9 and Afib I48.91 [place] [id number] [place] [address] 83341- 6076 Aug, [facility] (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.01 [place] [id number] [place] [address] 43881 2546 Aug, [facility] (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.01 [place] [id number] [place] [address] 01097- 9416 Aug, [facility] (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.01 [place] [id number] [place] [address] 01870- 2196 July, [facility] (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.01 [place] [id number] [place] [address] 55273- 8709 Jun, long term care phlebotomist (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.01 [place] [id number] [place] [address] 43055 254 Jun, long term care phlebotomist (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.01 [place] [id number] [place] [address] 10586- 0846 May, 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 I48.2 [place] [id number] [place] [address] 24628 2546 May, [place] [id number] [place] [address] 59906 2546 13 May, 2016 long term care phlebotomist (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.01 [place] [address], [place] [address]- 2546 May, [facility] (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.01 [place] [id number] [place] [address] 94531- 2242 10 May, 2016 Afib I48.91 ; Non-ischemic cardiomyopathy I42.8 ; Hypotension, unspecified hypotension type I95.9 and Heart palpitations R00.2 [place] [id number] [place] [address] 69605- 0276 16 Apr, 2016 [facility] (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.01 [place] [id number] [place] [address] 16753- 2496 Apr, long term care phlebotomist (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.01 [place] [address] 46870- 0639 Mar, long term care phlebotomist (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.01 [place] [id number] [place] [address] 62304- 9566 Feb, long term care phlebotomist (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.01 [place] [id number] [place] [address] 15271- 7592 Feb, [facility] (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.01 [place] [id number] [place] [address] 89145- 1730 Jan, long term care phlebotomist (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.01 [place] [id number] [place] [address] 84478- 7106 Jan, long term care phlebotomist (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.01 [place] [id number] [place] [address] 83714 2546 Dec, long term care phlebotomist (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.01 [place] [id number] [place] [address] 03436- 9246 Dec, [facility] (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.01 [place] [id number] [place] [address] 33570- 2546 Oct, [facility] (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.01 [facility] [id number] [place] [address] 78654- 7731 Oct, [facility] (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.01 [place] [address] 80391- 9205 Oct, Afib I48.91 ; Cardiomyopathy I42.9 ; Palpitations R00.2 and Non-rheumatic tricuspid valve insufficiency I36.1 [place] [address] 89475- 0434 Sep, 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 I48.2 ; [facility] (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.01 ; Cardiomyopathy I42.9 and Hypertension I10 [facility] [address] 73137 -6068 Aug, Allergic rhinitis, unspecified allergic rhinitis type J30.9 [place] [address] 11142- 7728 Aug, [facility] (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.01 [place] [address] 70185- 4180 Jun, [facility] (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.01 [place] [address] 03888- 0870 Jun, [facility] (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.01 [facility] [id number] [place] [address] 55633- 9732 Jun, long term care phlebotomist (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.01 [place] [id number] [place] [address] 78671- 3481 Jun, [place] [address] 74637- 9162 May, Encounter for long-term (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 V58.61 [place] [address] 10985- 6575 May, Encounter for long-term (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 V58.61 [place] [id number] [place] [address] 84095- 8243 May, Encounter for long-term (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 V58.61 [place] [id number] [place] [address] 313803- 8006 Apr, Encounter for long-term (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 V58.61 [place] [id number] [place] [address] 824896- 6593 Apr, long term care phlebotomist (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.01 [place] [address] 24285- 1264 Apr, Afib I48.91 ; Hypertension I10 ; Cardiomyopathy I42.9 and Palpitations R00.[address] 91506- 9371 Mar, [facility] (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.01 [place] [id number] [place] [address] 35974- 4703 Mar, Encounter for long-term (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 V58.61 [place] [id number] [place] [address] 16697- 1587 Mar, Encounter for long-term (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 V58.61 [place] [id number] [place] [address] 41818- 2096 Mar, long term care phlebotomist (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.01 and Encounter for therapeutic drug level monitoring Z51.81 [place] [address] 61969- 4265 Feb, long term care phlebotomist (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.01 and Encounter for therapeutic drug level monitoring Z51.81 [place] [id number] [place] [address] 56145- 2058 Feb, Encounter for long-term (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 V58.61 [place] [address], [place] [address]- 8703 16 Feb, 2015 [place] [address] [place] [address] 95463- 7846 Feb, Encounter for long-term (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 V58.61 [place] [id number] [place] [address] 24426- 2155 Feb, Encounter for therapeutic drug level monitoring Z51.81 [place] [address] [place] [address] 09700- 0059 Jan, [place] [id number] [place] [address] 70728- 6317 Dec, Encounter for long-term (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 V58.61 and Atrial fibrillation 427.31 [place] [address] [place] [address] 07003- 5964 Dec, Chest wall muscle strain S29.011A [place] [address] [place] [address] 85290- 0035 Nov, Encounter for long-term (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 V58.61 and Atrial fibrillation 427.31 [place] [address] [place] [address] 29548 2545 Nov, Atrial fibrillation 427.31 [place] [address] [place] [address] 02883 2546 Nov, [place] [address] [place] [address] 35516 2546 Nov, Atrial fibrillation 427.31 [place] [id number] [place] [address] 39385 2546 Nov, Atrial fibrillation 427.31 [place] [address] [place] [address] 60757 2545 Oct, Encounter for long-term (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 V58.61 [facility] [address], [place] [address]- 3318 Sep, Encounter for long-term (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 V58.61 [facility] [address] [place] [address] 25704- 4496 Aug, Encounter for long-term (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 V58.61 [facility] [address] [place] [address] 48384- 2839 July, [facility] [address] [place] [address] 93465- 4860 July, [facility] [id number] [place] [address] 23047- 3111 July, [facility] [id number] [place] [address] 80327- 3161 Jun, [facility] [id number] [place] [address] 48713- 1852 Jun, [facility] [address], [place] [address]- 3607 May, [facility] [address] [place] [address] 83768- 4728 May, [facility] [address], [place] [address]- 4658 May, [facility] [address], [place] [address]- 3929 Apr, [facility] [address], [place] [address]- 9708 Apr, [facility] [address], [place] [address]- 3816 Apr, [facility] [address], [place] [address]- 1406 Apr, [facility] [address], [place] [address]- 4994 Apr, [facility] [address] [id number] [place] [address]- 3869 Apr, [facility] [place] [facility] [address] [id number] [place] [address]- 1037 Apr, [facility] [place] [facility] [address] [facility] [id number] [place] [address]- 7604 Mar, [facility] [place] [facility] [address] [id number] [place] [address]- 7072 Mar, [facility] [place] [facility] [address] [id number] [place] [address]- 4525 Mar, [facility] [place] [facility] [address] [id number] [place] [address]- 6187 Mar, [facility] [address] [facility] [id number] [place] [address]- 2836 Mar, [facility] [place] [facility] [address] [id number] [place] [address]- 6744 Mar, [facility] [place] [facility] [address] [id number] [place] [address]- 7091 Mar, [facility] [place] [facility] [address] [facility] [id number] [place] [address]- 1616 Mar, [facility] [place] [facility] [address] [id number], [place] [address]- 6539 Feb, [facility] [place] [facility] [address] [id number], [place] [address]- 8837 Feb, [facility] [place] [facility] [address] [id number] [place] [address]- 5369 Feb, [facility] [place] [facility] [address] [id number] [place] [address]- 1684 Feb, [facility] [place] [facility] [address] [facility] [id number] [place] [address]- 3043 Feb, [facility] [place] [facility] [address] [id number] [place] [address]- 1620 Feb, [facility] [place] [facility] [address] [id number] [place] 5525 Jan, [facility] [place] [facility] [address] [id number] [place] [address]- 2032 Jan, [facility] [place] [facility] [address] [id number] [place] [address]- 6051 Jan, [facility] [place] [facility] [address] [id number] [place] [address]- 8873 Jan, [facility] [place] [facility] [address] [id number] [place] [address]- 6549 Jan, [facility] [place] [facility] [address] [id number] [place] 2594 Jan, [facility] [place] [facility] [address] [id number] [place] [address]- 9604 Dec, [facility] [place] [facility] [address] [id number] [place] [address]- 0496 Dec, [facility] [place] [facility] [address] [id number] [place] [address]- 0049 Dec, [facility] [place] [facility] [address] [id number] [place] [address]- 7960 Dec, [facility] [place] [facility] [address] [id number] [place] [address]- 5638 Nov, [facility] [place] [facility] [address] [id number] [place] [address]- 9131 Nov, [facility] [place] [facility] [address] [id number] [place] [address]- 6116 Oct, [facility] [place] [facility] [address] [id number] [place] [address]- 0735 Oct, [facility] [place] [facility] [address] [id number] [place] [address]- 5903 Oct, [facility] [place] [facility] [address] [id number] [place] [address]- 2914 Oct, [facility] [place] [facility] [address] [id number] [place] [address]- 2619 Oct, [facility] [place] [facility] [address] [id number] [place] [address]- 5734 Oct, [facility] [place] [facility] [address] [id number] [place] [address]- 5528 Sep, [facility] [place] [facility] [address] [id number] [place] [address]- 1439 Sep, [facility] [place] [facility] [address] [id number] [place] [address]- 2606 Sep, [facility] [place] [facility] [address] [id number] [place] [address]- 6498 Sep, [facility] [place] [facility] [address] [id number] [place] [address]- 9696 Sep, [facility] [place] [facility] [address] [id number] [place] [address]- 6246 Sep, [facility] [place] [facility] [address] [id number] [place] [address]- 3349 Sep, [facility] [place] [facility] [address] [id number] [place] [address]- 7163 Sep, [facility] [place] [facility] [address] [id number] [place] [address]- 5419 Sep, [facility] [place] [facility] [address] [id number] [place] [address]- 8858 Sep, [facility] [place] [facility] [address] [id number] [place] [address]- 0654 Sep, [facility] [place] [facility] [address] [id number] [place] [address]- 0027 Sep, [facility] [place] [facility] [address] [id number], [place] [address] 2546 Sep, [facility] [id number] [address]- 9276 Sep, [facility] [id number] [address]- 8846 Feb, [facility] [id number] [address]- 0376 Feb, [facility] [address], [place] [address]- 5876 July, [facility] [address], [place] [address]- 1226 Apr, [facility] [address], [place] [address] 2546 Apr, [facility] [address], [place] [address] 2546 Apr, [facility] [address] [facility] [id number], [place] [address] 2546 Apr, IMMUNIZATIONS No Known Immunizations SOCIAL HISTORY Never Assessed REASON FOR VISIT Pain (acute)(toe) Pt c/o possible splinter in L great toe for at least 2 weeks [facility] PLAN OF CARE Activity Details Follow Up Routine appt Reason: VITAL SIGNS Height 64 in 2017-10-30 Weight 212.8 lbs 2017-10-30 Temperature 97.9 degrees Fahrenheit 2017-10-30 Heart Rate 90 bpm 2017-10-30 Respiratory Rate 20 2017-10-30 BMI 36.52 kg/m2 2017-10-30 Blood pressure systolic 112 mmHg 2017-10-30 Blood pressure diastolic 68 mmHg 2017-10-30 MEDICATIONS Medication Instructions Dosage Frequency Start Date End Date Duration Status Apixaban 5 mg Orally 2 times a day 12h Active Magnesium Oxide 400 mg Orally twice a day 1 tablet as needed 12h Active Aspirin 325 MG Orally Once a day 1 tablet 24h Active Amiodarone HCl 200 mg Orally Once a day 1 tablet 24h 30 Active Stool Softener 100 MG Orally Once a day 1 tablet as needed 24h Active Zoloft 50 MG Orally Once a day 1 tablet 24h Jun, Active RESULTS No Results PROCEDURES No Known procedures INSTRUCTIONS MEDICATIONS ADMINISTERED No Known Medications MEDICAL (GENERAL) HISTORY Type Description Date Medical History Atrial fibrillation Medical History hx of c. diff Medical History Stress test performed; EF 25% Last test 2016 was at 60% Medical History Palpitations Medical History Cardiac Arrest with CPR and Intubation with ET tube and transferred to [facility] Trach placed 03/2017 due to A Fib resulting in anoxic brain injury and memory loss Surgical History Defibrillation placed 2017 Surgical History Trach/PEG Tube placed and removed [facility] after Intubation 2018 Surgical History heart surgery 2018 Hospitalization History ICU for Afib 09/2013 Hospitalization History Admitted to Transferred to Cardiac ICU/ Rehab 03/2017 Hospitalization History Coded, Defribrillated and ET tube placed for ventillation and transferred to [facility] 03/2017 Hospitalization History surgery 09/29/2017
--- OUTSIDE RECORDS SUMMARY | 2018-05-09 18:00 | XMS REPORT | Encounter Summary ---
Author Author [facility] Organization [facility] Address Unknown Phone Unavailable Care Team Providers Care Ce[employer] And [employer] Founder Name Role Phone Erum Foreman MD PCP Erum Foreman MD 100 Reason for Visit * Reason Comments Follow-up Phone Call Encounter Details Care Team Description Date Type Department Stephany Matias RN Follow-up Phone Call 02/19/2018 Telephone Cardiovascular Medicine [address] [place] [phone] Social History Date Tobacco Use Types [...] encounter Miscellaneous Notes * Telephone Encounter - Hallie Florentino RN - 02/19/2018 5:12 PM GETTERER We will continue to monitor his symptoms. He had no other symptoms other than HR. His BP was 108/69 mmHg. Notified about labs not being fasting. He knows he will have a an overnight stay. Repeat BP/HRs at 1530 60-70 bpm; BP not checked at that time. He feels fine now and we will continue to monitor. He will keep us updated on the patients status. He is taking OAC without missed doses. ROZ Dyson Mary, LPN P [facility] Nurse Ep Urgent VM from [facility] # [phone]. Said that care transition coordinator called him and left message that his HR was 95, then 60, then 95, then 78. Said to call care transition coordinator back at home # [phone] as he is at work and will not be able to answer the phone. ERER * Telephone Encounter - Stephany Matias RN - 02/19/2018 8:31 AM GETTERER LM w/ answers to questions on VM. Said to call back w/ further questions 1)does not need to be fasting for labs 2)Should go home the following afternoon ERER * Telephone Encounter - Stephany Matias RN - 02/19/2018 8:31 AM GETTERER ----- Message from Alejandra Murrieta LPN sent at 02/19/2018 8:09 AM GETTERER ----- Regarding: YMR- procedure ? VM from [facility] on triage line. 1- his pre-op appointment on 02-26, he is having labs drawn, does he need to be fasting? 2- procedure on 03-02, will he go home next day or stay for a while? ERER in this encounter Plan of Treatment Not on fileas of this encounter Results * CBC (02/26/2018 1:11 PM GETTERER) White Blood Cells 6.5 4.5 - 11.0 [...] MAIN LAB Specimen Blood Performing Organization Address [facility] [address] [place] [address] * MAGNESIUM (02/26/2018 1:11 PM GETTERER) Magnesium 2.0 1.6 - 2.6 mg/dL [facility] Specimen Blood Performing Organization Address [facility] Phone Number MAIN LAB [address] [place] [address] * BASIC METABOLIC PANEL (02/26/2018 1:11 PM GETTERER) Sodium 136 (L) 137 - 147 MMOL/L [...] for questions. Specimen Blood Performing Organization Address [facility] Phone Number MAIN [facility] [address] [place] [address] in this encounter Visit Diagnoses Diagnosis Atrial fibrillation, unspecified type (HCC) - Primary in this encounter
--- OUTSIDE RECORDS SUMMARY | 2018-05-09 18:00 | XMS REPORT ---
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 918085914 Problem History of cardiac arrest Z86.74 Active 192092363 Problem Non-ischemic cardiomyopathy I42.8 Active 76688038 ALLERGIES Substance Reaction Event Type Date Status Penicillin V Potassium hives Drug Allergy Sep, Active ENCOUNTERS Encounter Location Date Diagnosis [place] [id number] [place] [address] 11503- 3894 Oct, Foreign body in subcutaneous tissue T14.8XXA [facility] [id number] [place] [address] 66076- 8964 Sep, 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 I48.2 ; Non-ischemic cardiomyopathy I42.8 ; Anoxic brain injury G93.1 and Adjustment disorder with depressed mood F43.21 [facility] [address] [address] Aug, [facility] [id number] [place] [address] 67325- 6643 July, [facility] [id number] [place] [address] 21040- 9295 July, [facility] [id number] [place] [address] 67178- 5674 Jun, Adjustment disorder with depressed mood F43.21 [facility] [id number] [place] [address] 38281- 9052 Jun, [facility] [id number] [place] [address] 16845- 9806 Jun, [facility] [id number] [place] [address] 51188- 4909 May, [facility] [id number] [place] [address] 04916- 7974 May, [facility] [id number] [place] [address] 63193- 9815 May, [facility] [id number] [place] [address] 16471- 9310 May, [facility] [id number] [place] [address] 91842- 7853 May, History of cardiac arrest Z86.74 ; Cardiac defibrillator in place Z95.810 ; 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 I48.2 and Current moderate episode of major depressive disorder without prior episode F32.1 [facility] [address] [place] [address] 37712- 9732 May, [facility] [address] [place] [address] 08621- 7020 Mar, [facility] (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.01 [facility] [address] [address] 4820 Mar, [facility] [address] [place] [address] 34235- 5460 Mar, [facility] (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.01 [facility] [address] [address] 6857 Feb, Afib I48.91 [facility] [id number] [place] [address] 05984- 1472 Feb, 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 [facility] [address] [place] [address] 16739 -1984 Jan, Other viral agents as the cause of diseases classified elsewhere B97.89 ; Acute upper respiratory infection, unspecified J06.9 and Body aches R52 [place] [id number] [place] [address] 04633- 2852 Jan, Afib I48.91 [place] [address] 13412- 2579 Jan, Afib I48.91 and [facility] (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.01 [facility] [id number] [place] [address] 95369- 3486 Dec, Afib I48.91 [place] [id number] [place] [address] 25052- 6649 Dec, 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 I48.2 [facility] [id number] [place] [address] 88960- 5339 Nov, Hypertension I10 [place] [id number] [place] [address] 67038- 6186 Oct, 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 I48.2 [place] [id number] [place] [address] 28693- 4244 Oct, [facility] (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.01 [facility] [id number] [place] [address] 72063- 2967 Oct, 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 I48.2 [place] [id number] [place] [address] 15831- 7880 Oct, 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 I48.2 [facility] [id number] [place] [address] 34035- 8593 Sep, [facility] (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.01 ; Hypertension I10 ; Cardiomyopathy I42.9 and Afib I48.91 [place] [id number] [place] [address] 09360- 8017 Sep, 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 ; Hypertension I10 ; Cardiomyopathy I42.9 and Afib I48.91 [place] [id number] [place] [address] 12312- 5236 Aug, [facility] (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.01 [place] [id number] [place] [address] 07219 2546 Aug, [facility] (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.01 [place] [id number] [place] [address] 24518- 7236 Aug, [facility] (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.01 [place] [id number] [place] [address] 24807- 5536 July, [facility] (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.01 [place] [id number] [place] [address] 10286- 0449 Jun, 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 [place] [id number] [place] [address] 90344 2542 Jun, 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 [place] [address] [place] [address] 52562- 7616 May, 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 I48.2 [place] [id number] [place] [address] 29284 2546 May, [place] [id number] [place] [address] 92948 2546 13 May, 2016 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 [place] [address] [address]- 2546 May, [facility] (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.01 [place] [id number] [place] [address] 46101- 2114 10 May, 2016 Afib I48.91 ; Non-ischemic cardiomyopathy I42.8 ; Hypotension, unspecified hypotension type I95.9 and Heart palpitations R00.2 [place] [id number] [place] [address] 35416- 5676 16 Apr, 2016 [facility] (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.01 [place] [id number] [place] [address] 03931- 9696 Apr, 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 [place] [address] 93760- 5823 Mar, 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 [place] [id number] [place] [address] 63535- 3206 Feb, 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 [place] [id number] [place] [address] 41093- 4198 Feb, [facility] (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.01 [place] [id number] [place] [address] 63599- 7188 Jan, 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 [place] [id number] [place] [address] 37615- 9056 Jan, 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 [place] [id number] [place] [address] 29057 2546 Dec, 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 [place] [id number] [place] [address] 95395- 5666 Dec, [facility] (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.01 [place] [id number] [place] [address] 75522- 2546 Oct, [facility] (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.01 [facility] [id number] [place] [address] 89751- 0459 Oct, [facility] (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.01 [place] [address] 59239- 9129 Oct, Afib I48.91 ; Cardiomyopathy I42.9 ; Palpitations R00.2 and Non-rheumatic tricuspid valve insufficiency I36.1 [place] [address] 73394- 2889 Sep, 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 I48.2 ; [facility] (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.01 ; Cardiomyopathy I42.9 and Hypertension I10 [facility] [address] 34834 -8162 Aug, Allergic rhinitis, unspecified allergic rhinitis type J30.9 [place] [address] 52092- 6885 Aug, [facility] (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.01 [place] [address] 63022- 4823 Jun, [facility] (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.01 [place] [address] 51415- 2973 Jun, [facility] (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.01 [facility] [id number] [place] [address] 29344- 0443 Jun, 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 [place] [id number] [place] [address] 71408- 4930 Jun, [place] [address] 67370- 7690 May, Encounter for long-term (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 V58.61 [place] [address] 31311- 9440 May, Encounter for long-term (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 V58.61 [place] [id number] [place] [address] 63133- 5039 May, Encounter for long-term (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 V58.61 [place] [id number] [place] [address] 691158- 5066 Apr, Encounter for long-term (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 V58.61 [place] [id number] [place] [address] 521976- 1790 Apr, 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 [place] [address] 86307- 3394 Apr, Afib I48.91 ; Hypertension I10 ; Cardiomyopathy I42.9 and Palpitations R00.[address] 65167- 3390 Mar, [facility] (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.01 [place] [id number] [place] [address] 56897- 9803 Mar, Encounter for long-term (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 V58.61 [place] [id number] [place] [address] 47807- 7300 Mar, Encounter for long-term (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 V58.61 [place] [id number] [place] [address] 95950- 0865 Mar, 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 and Encounter for therapeutic drug level monitoring Z51.81 [place] [address] 65048- 2326 Feb, 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 and Encounter for therapeutic drug level monitoring Z51.81 [place] [id number] [place] [address] 33932- 3463 Feb, Encounter for long-term (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 V58.61 [place] [address] [address]- 6304 16 Feb, 2015 [place] [address] [place] [address] 97300- 5236 Feb, Encounter for long-term (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 V58.61 [place] [id number] [place] [address] 48433- 8764 Feb, Encounter for therapeutic drug level monitoring Z51.81 [place] [address] [place] [address] 63461- 9482 Jan, [place] [id number] [place] [address] 05362- 6975 Dec, Encounter for long-term (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 V58.61 and Atrial fibrillation 427.31 [place] [address] [place] [address] 26962- 0572 Dec, Chest wall muscle strain S29.011A [place] [address] [place] [address] 17805- 5158 Nov, Encounter for long-term (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 V58.61 and Atrial fibrillation 427.31 [place] [address] [place] [address] 60717 254 Nov, Atrial fibrillation 427.31 [place] [address] [place] [address] 09171 2546 Nov, [place] [address] [place] [address] 38739 2546 Nov, Atrial fibrillation 427.31 [place] [id number] [place] [address] 25288 2546 Nov, Atrial fibrillation 427.31 [place] [address] [place] [address] 96895 2549 Oct, Encounter for long-term (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 V58.61 [facility] [address] [address]- 6388 Sep, Encounter for long-term (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 V58.61 [facility] [address] [place] [address] 95990- 0186 Aug, Encounter for long-term (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 V58.61 [facility] [address] [place] [address] 20960- 0696 July, [facility] [address] [place] [address] 44348- 8858 July, [facility] [id number] [place] [address] 91035- 6242 July, [facility] [id number] [place] [address] 90845- 5947 Jun, [facility] [id number] [place] [address] 51518- 3604 Jun, [facility] [address] [address]- 1988 May, [facility] [address] [place] [address] 59744- 7227 May, [facility] [address] [address]- 7264 May, [facility] [address] [address]- 5555 Apr, [facility] [address] [address]- 1080 Apr, [facility] [address] [address]- 0566 Apr, [facility] [address] [address]- 5896 Apr, [facility] [address] [address]- 4774 Apr, [facility] [address] [id number] [place] [address]- 5274 Apr, [facility] [place] [facility] [address] [id number] [place] [address]- 1220 Apr, [facility] [place] [facility] [address] [facility] [id number] [place] [address]- 4903 Mar, [facility] [place] [facility] [address] [id number] [place] [address]- 8987 Mar, [facility] [place] [facility] [address] [id number] [place] [address]- 9010 Mar, [facility] [place] [facility] [address] [id number] [place] [address]- 1785 Mar, [facility] [address] [facility] [id number] [place] [address]- 6971 Mar, [facility] [place] [facility] [address] [id number] [place] [address]- 6793 Mar, [facility] [place] [facility] [address] [id number] [place] [address]- 8459 Mar, [facility] [place] [facility] [address] [facility] [id number] [place] [address]- 7391 Mar, [facility] [place] [facility] [address] [id number] [place] [address]- 6243 Feb, [facility] [place] [facility] [address] [id number] [place] [address]- 9142 Feb, [facility] [place] [facility] [address] [id number] [place] [address]- 2113 Feb, [facility] [place] [facility] [address] [id number] [place] [address]- 8396 Feb, [facility] [place] [facility] [address] [facility] [id number] [place] [address]- 6274 Feb, [facility] [place] [facility] [address] [id number] [place] [address]- 3651 Feb, [facility] [place] [facility] [address] [id number] [place] 7475 Jan, [facility] [place] [facility] [address] [id number] [place] [address]- 2571 Jan, [facility] [place] [facility] [address] [id number] [place] [address]- 8638 Jan, [facility] [place] [facility] [address] [id number] [place] [address]- 8633 Jan, [facility] [place] [facility] [address] [id number] [place] [address]- 9555 Jan, [facility] [place] [facility] [address] [id number] [place] 7195 Jan, [facility] [place] [facility] [address] [id number] [place] [address]- 8402 Dec, [facility] [place] [facility] [address] [id number] [place] [address]- 8202 Dec, [facility] [place] [facility] [address] [id number] [place] [address]- 1031 Dec, [facility] [place] [facility] [address] [id number] [place] [address]- 2427 Dec, [facility] [place] [facility] [address] [id number] [place] [address]- 8173 Nov, [facility] [place] [facility] [address] [id number] [place] [address]- 8611 Nov, [facility] [place] [facility] [address] [id number] [place] [address]- 9644 Oct, [facility] [place] [facility] [address] [id number] [place] [address]- 5788 Oct, [facility] [place] [facility] [address] [id number] [place] [address]- 3164 Oct, [facility] [place] [facility] [address] [id number] [place] [address]- 9290 Oct, [facility] [place] [facility] [address] [id number] [place] [address]- 3705 Oct, [facility] [place] [facility] [address] [id number] [place] [address]- 5686 Oct, [facility] [place] [facility] [address] [id number] [place] [address]- 3869 Sep, [facility] [place] [facility] [address] [id number] [place] [address]- 4672 Sep, [facility] [place] [facility] [address] [id number] [place] [address]- 3351 Sep, [facility] [place] [facility] [address] [id number] [place] [address]- 0177 Sep, [facility] [place] [facility] [address] [id number] [place] [address]- 8542 Sep, [facility] [place] [facility] [address] [id number] [place] [address]- 3402 Sep, [facility] [place] [facility] [address] [id number] [place] [address]- 8465 Sep, [facility] [place] [facility] [address] [id number] [place] [address]- 9905 Sep, [facility] [place] [facility] [address] [id number] [place] [address]- 4826 Sep, [facility] [place] [facility] [address] [id number] [place] [address]- 1904 Sep, [facility] [place] [facility] [address] [id number] [place] [address]- 1868 Sep, [facility] [place] [facility] [address] [id number] [place] [address]- 6599 Sep, [facility] [place] [facility] [address] [id number] [place] [address] 2546 Sep, [facility] [address] [facility] [id number] [place] [address] 2546 Sep, [facility] [address] [facility] [id number] [place] [address]- 1846 Feb, [facility] [address] [facility] [id number] [place] [address]- 6136 Feb, [facility] [address] [id number] [address]- 0261 July, [facility] [id number] [address]- 8856 Apr, [facility] [address] [address] 2546 Apr, [facility] [address] [id number] [address] 2546 Apr, [facility] [address] [facility] [id number] [place] [address] 2546 Apr, IMMUNIZATIONS No Known Immunizations SOCIAL HISTORY Never Assessed REASON FOR VISIT Transition of Care-LAMONT sams, PHQ2, AUDIT C PLAN OF CARE Activity Details Follow Up 4 Months Reason: VITAL SIGNS Height 64 in 2017-10-12 Weight 212.7 lbs 2017-10-12 Temperature 97.5 degrees Fahrenheit 2017-10-12 Heart Rate 73 bpm 2017-10-12 Respiratory Rate 20 2017-10-12 BMI 36.51 kg/m2 2017-10-12 Blood pressure systolic 110 mmHg 2017-10-12 Blood pressure diastolic 72 mmHg 2017-10-12 MEDICATIONS Medication Instructions Dosage Frequency Start Date End Date Duration Status Aspirin 325 MG Orally Once a day 1 tablet 24h Active Amiodarone HCl 200 mg Orally Once a day 1 tablet 24h 30 Active Stool Softener 100 MG Orally Once a day 1 tablet as needed 24h Active Magnesium Oxide 400 mg Orally twice a day 1 tablet as needed 12h Active Apixaban 5 mg Orally 2 times a day 12h Active Zoloft 50 MG Orally Once a day 1 tablet 24h 13 Jun, 2017 Active RESULTS No Results PROCEDURES No Known procedures INSTRUCTIONS MEDICATIONS ADMINISTERED No Known Medications MEDICAL (GENERAL) HISTORY Type Description Date Medical History Atrial fibrillation Medical History hx of c. diff Medical History Stress test performed; EF 25% Last test 2015 was at 60% Medical History Palpitations Medical History Cardiac Arrest with CPR and Intubation with ET tube and transferred to [facility] Trach placed 03/2017 due to A Fib resulting in anoxic brain injury and memory loss Surgical History Defibrillation placed 2017 Surgical History Trach/PEG Tube placed and removed [facility] after Intubation 2018 Surgical History heart surgery 2018 Hospitalization History ICU for Afib 09/2013 Hospitalization History Admitted to Transferred to Cardiac ICU/ Rehab 03/2017 Hospitalization History Coded, Defribrillated and ET tube placed for ventillation and transferred to [facility] 03/2017 Hospitalization History surgery 09/29/2017
--- OUTSIDE RECORDS SUMMARY | 2018-05-09 18:00 | XMS REPORT | Encounter Summary ---
Author Author [facility] Organization [facility] Address Unknown Phone Unavailable Care Team Providers Care [employer] Operator Name Role Phone Erum Foreman MD PCP Erum Foreman MD 100 Reason for Visit * Reason Comments Pre-Certification Approval Encounter Details Care Team Description Date Type Department Rebecca Edmonds Pre-Certification (Approval) 02/16/2018 Documentation Cardiovascular Medicine [facility] [place] [address] Social History Date Tobacco Use Types Packs/Day [...] as of this encounter Progress Notes * Rebecca Edmonds - 02/16/2018 11:16 AM APPLICATIONS SUPPORT LEAD 02-16 called [place] [phone] regarding [id number] spoke with Jennifer Valenzuela Pre Cert needed REF# [id number] ICATIONS SUPPORT LEAD in this encounter Plan of Treatment Not on fileas of this encounter Visit Diagnoses Not on filein this encounter
--- OUTSIDE RECORDS SUMMARY | 2018-05-09 18:01 | XMS REPORT ---
Author Author KARI AMADOR [facility] [address] Address [address] [place] [address] Care Team Providers Care Medical Diagnostic Radiographer Name Role Phone KARI AMADOR Unavailable PROBLEMS Type Condition ICD9-CM Code DUB83-ZK Code Onset Dates Condition Status SNOMED Code Problem Cardiomyopathy I42.9 Active 56648625 Problem Anoxic brain injury G93.1 Active 762998968 Problem Adjustment disorder with depressed mood F43.21 Active 02360103 Problem Cardiac defibrillator in place Z95.810 Active 387794013 Problem 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 I48.2 Active 144515668 Problem longterm (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.01 Active 261384822 Problem History of cardiac arrest Z86.74 Active 756528166 Problem Non-ischemic cardiomyopathy I42.8 Active 57988708 ALLERGIES No Information ENCOUNTERS Encounter Location Date Diagnosis [facility] [id number] [place] [address] 11231- 3178 Oct, Foreign body in subcutaneous tissue T14.8XXA [facility] [id number] [place] [address] 24376- 4460 Sep, 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 I48.2 ; Non-ischemic cardiomyopathy I42.8 ; Anoxic brain injury G93.1 and Adjustment disorder with depressed mood F43.21 [facility] [id number] [place] [address] 39285- 7601 Aug, [facility] [address] 11520- 6345 July, [facility] [address] 75707- 3396 July, [facility] [address] 86754- 3468 Jun, Adjustment disorder with depressed mood F43.21 [facility] [address], [place] [address] 33[address] Jun, [facility] [address], [place] [address] 3491 Jun, [facility] [address], [place] [address] 4567 May, [facility] [address] [place] [address] 68400- 1300 May, [facility] [address], [place] [address] 3024 May, [facility] [address] [place] [address] 66674- 8969 15 May, 2017 [facility] [address], [place] [address] 2788 May, History of cardiac arrest Z86.74 ; Cardiac defibrillator in place Z95.810 ; 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 I48.2 and Current moderate episode of major depressive disorder without prior episode F32.1 [facility] [address], [place] [address]- 7864 May, [facility] [address], [place] [address]- 4349 Mar, longterm (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.01 [facility] [address], [place] [address]- 7342 Mar, [facility] [address], [place] [address]- 5942 Mar, longterm (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.01 [facility] [address], [place] [address]- 4953 Feb, Afib I48.91 [facility] [address], [place] [address] 5302 Feb, 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 [facility] [address], [place] [address] Jan, Other viral agents as the cause of diseases classified elsewhere B97.89 ; Acute upper respiratory infection, unspecified J06.9 and Body aches R52 [facility] [address], [place] [address]- 3305 Jan, Afib I48.91 [facility] [id number] [place] [address] 07832- 3164 Jan, Afib I48.91 and longterm (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.01 [facility] [id number] [place] [address] 04570- 8846 Dec, Afib I48.91 [facility] [id number] [place] [address] 52203- 2974 Dec, 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 I48.2 [facility] [id number] [place] [address] 47138- 6546 Nov, Hypertension I10 [facility] [id number] [place] [address] 30937- 0532 Oct, 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 I48.2 [facility] [address], [place] [address]- 2314 Oct, longterm (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.01 [facility] [address], [place] [address]- 2518 Oct, 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 I48.2 [facility] [address] [place] [address] 50676- 0751 Oct, 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 I48.2 [facility] [address], [place] [address]- 2346 Sep, 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 ; Hypertension I10 ; Cardiomyopathy I42.9 and Afib I48.91 [facility] [id number] [place] [address] 33923- 2542 Sep, 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 ; Hypertension I10 ; Cardiomyopathy I42.9 and Afib I48.91 [facility] [id number] [place] [address] 19173- 2546 Aug, 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01 [facility] [id number] [place] [address] 07275- 3764 Jun, longterm (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.01 [facility] [id number] [place] [address] 32977- 4686 May, 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 I48.2 [facility] [id number] [place] [address] 15440- 8552 May, [facility] [id number] [place] [address] 13511- 2548 13 May, 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 [facility] [id number] [place] [address] 98427- 2546 10 May, 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 [facility] [id number] [place] [address] 32713- 1381 May, Afib I48.91 ; Non-ischemic cardiomyopathy I42.8 ; Hypotension, unspecified hypotension type I95.9 and Heart palpitations R00.2 [facility] [address] [place] [address] 91219- 2199 16 Apr, 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 [facility] [id number] [place] [address] 36237- 2116 13 Apr, 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 [facility] [facility] [id number] [place] [address] 90709- 7536 Mar, longterm (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.01 [facility] [id number] [place] [address] 56452- 4008 Feb, longterm (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.01 [facility] [id number] [place] [address] 43365- 2655 Feb, longterm (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.01 [facility] [id number] [place] [address] 78385- 2401 Jan, longterm (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.01 [facility] [facility] [address] [place] [address] 53950- 5091 Jan, longterm (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.01 [facility] [facility] [id number] [place] [address] 47099- 8193 Dec, 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 [facility] [id number] [place] [address] 43355- 8964 Dec, longterm (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.01 [facility] [address] [place] [address] 18889- 8767 Oct, 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 [facility] [facility] [id number] [place] [address] 05574- 8864 Oct, 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 [facility] [facility] [address] 78240- 8822 Oct, Afib I48.91 ; Cardiomyopathy I42.9 ; Palpitations R00.2 and Non-rheumatic tricuspid valve insufficiency I36.1 [facility] [address] 99176- 9510 Sep, 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 I48.2 ; longterm (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.01 ; Cardiomyopathy I42.9 and Hypertension I10 [facility] [address] 43279 -2480 Aug, Allergic rhinitis, unspecified allergic rhinitis type J30.[address] 02467- 8008 Aug, 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 [facility] [id number] [place] [address] 93831- 0264 Jun, longterm (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.01 [facility] [facility] [address] 53136- 9389 Jun, longterm (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.01 [facility] [id number] [place] [address] 94776- 1746 Jun, 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 [facility] [facility] [id number] [place] [address] 68038- 5143 Jun, [facility] [address] 42149- 4553 May, Encounter for long-term (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 V58.61 [facility] [id number] [place] [address] 76907- 1766 May, Encounter for long-term (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 V58.61 [facility] [address], [place] [address]- 6966 May, Encounter for long-term (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 V58.61 [facility] [address] [place] [address] 90281- 5076 Apr, Encounter for long-term (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 V58.61 [facility] [id number] [place] [address] 62951- 4436 Apr, 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 [facility] [id number] [place] [address] 19310- 8563 Apr, Afib I48.91 ; Hypertension I10 ; Cardiomyopathy I42.9 and Palpitations R00.2 [facility] [id number] [place] [address] 19690- 4826 Mar, longterm (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.01 [facility] [id number] [place] [address] 62417- 8296 Mar, Encounter for long-term (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 V58.61 [facility] [address] [place] [address] 50308- 5788 Mar, Encounter for long-term (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 V58.61 [facility] [address] [place] [address] 88979- 3605 Mar, longterm (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.01 and Encounter for therapeutic drug level monitoring Z51.81 [facility] [address] [place] [address] 46984- 8489 Feb, 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 and Encounter for therapeutic drug level monitoring Z51.81 [facility] [address] [place] [address] 60974- 6967 Feb, Encounter for long-term (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 V58.61 [facility] [address], [place] [address]- 3545 16 Feb, 2015 [facility] [id number] [place] [address] 60873- 6771 Feb, Encounter for long-term (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 V58.61 [facility] [address] [place] [address] 13564- 1006 14 Feb, 2015 Encounter for therapeutic drug level monitoring Z51.81 [facility] [id number] [place] [address] 42057- 7068 Jan, [facility] [address] [place] [address] 95618- 2369 Dec, Encounter for long-term (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 V58.61 and Atrial fibrillation 427.31 [place] [id number] [place] [address] 98932- 1671 Dec, Chest wall muscle strain S29.011A [facility] [address] [place] [address] 33311- 8250 Nov, Encounter for long-term (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 V58.61 and Atrial fibrillation 427.31 [facility] [address] [place] [address] 56510- 3101 Nov, Atrial fibrillation 427.31 [facility] [address] [place] [address] 97311- 4652 Nov, [facility] [address] [place] [address] 99164- 2543 Nov, Atrial fibrillation 427.31 [facility] [facility] [address] [place] [address] 55019- 3691 Nov, Atrial fibrillation 427.31 [facility] [address] [place] [address] 41457- 2543 Oct, Encounter for long-term (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 V58.61 [facility] [address] [address]- 6506 Sep, Encounter for long-term (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 V58.61 [facility] [id number] [place] [address] 63996- 2986 Aug, Encounter for long-term (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 V58.61 [facility] [address], [place] [address] 2546 July, [facility] [address] [place] [address]- 7796 July, [facility] [address] [place] [address] 67969- 9516 July, [facility] [address] [address]- 5806 Jun, [facility] [address] [place] [address] 19822- 8276 Jun, [facility] [address], [place] [address]- 2546 May, [facility] [address], [place] [address]- 0506 May, [facility] [address], [place] [address]- 7376 May, [facility] [address], [place] [address]- 2546 Apr, [facility] [address], [place] [address]- 2546 Apr, [facility] [address], [place] [address]- 4256 Apr, [facility] [address], [place] [address]- 2546 Apr, [facility] [id number] [address]- 2546 Apr, [facility] [place] [facility] [address] [id number] [place] [address]- 0127 Apr, [facility] [place] [facility] [address] [id number] [place] [address]- 6622 Apr, [facility] [place] [facility] [address] [id number] [place] [address]- 7765 Mar, [facility] [place] [facility] [address] [id number] [place] [address]- 1570 Mar, [facility] [place] [facility] [address] [id number] [place] [address]- 2638 Mar, [facility] [place] [facility] [address] [id number] [place] [address]- 3753 Mar, [facility] [place] [facility] [address] [id number] [place] [address]- 1893 Mar, [facility] [place] [facility] [address] [id number] [place] [address]- 3914 Mar, [facility] [place] [facility] [address] [id number] [place] [address]- 1302 Mar, [facility] [place] [facility] [address] [id number] [address]- 0163 Mar, [facility] [place] [facility] [address] [id number], [place] [address]- 1861 Feb, [facility] [place] [facility] [address] [id number], [place] [address]- 9279 Feb, [facility] [place] [facility] [address] [id number] [place] [address]- 5347 Feb, [facility] [place] [facility] [address] [id number] [place] [address]- 6790 Feb, [facility] [place] [facility] [address] [id number], [place] [address]- 5314 Feb, [facility] [place] [facility] [address] [id number], [place] [address]- 2799 Feb, [facility] [place] [facility] [address] [id number] [place] [address]- 0059 Jan, [facility] [place] [facility] [address] [id number] [place] [address]- 9537 Jan, [facility] [place] [facility] [address] [facility] [id number] [place] [address]- 4628 Jan, [facility] [place] [facility] [address] [id number] [place] [address]- 5158 Jan, [facility] [place] [facility] [address] [id number] [place] [address]- 7379 Jan, [facility] [place] [facility] [address] [id number] [place] [address]- 3043 Jan, [facility] [place] [facility] [address] [facility] [id number] [place] [address]- 5977 Dec, [facility] [place] [facility] [address] [id number] [place] [address]- 6951 Dec, [facility] [place] [facility] [address] [facility] [id number] [place] [address]- 6850 Dec, [facility] [place] [facility] [address] [facility] [id number] [place] [address]- 1829 Dec, [facility] [place] [facility] [address] [facility] [id number], [place] [address]- 3582 Nov, [facility] [place] [facility] [address] [id number], [place] [address]- 5797 Nov, [facility] [place] [facility] [address] [id number] [place] [address]- 7840 Oct, [facility] [place] [facility] [address] [facility] [id number] [place] [address]- 9370 Oct, [facility] [place] [facility] [address] [facility] [id number] [place] [address]- 2300 Oct, [facility] [place] [facility] [address] [id number] [place] [address]- 8416 Oct, [facility] [place] [facility] [address] [id number] [facility] 5934 Oct, [facility] [place] [facility] [address] [id number] [place] 7228 Oct, [facility] [place] [facility] [address] [id number] [place] [address]- 1943 Sep, [facility] [place] [facility] [address] [id number] [place] [address]- 7059 Sep, [facility] [place] [facility] [address] [id number] [place] [address]- 0787 Sep, [facility] [place] [facility] [address] [id number] [place] [address]- 4753 Sep, [facility] [place] [facility] [address] [id number] [place] [address]- 5314 Sep, [facility] [place] [facility] [address] [id number] [place] [address]- 0523 Sep, [facility] [place] [facility] [address] [id number] [place] [address]- 8755 Sep, [facility] [place] [facility] [address] [id number] [place] [address]- 0533 Sep, [facility] [place] [facility] [address] [id number] [place] [address]- 4959 Sep, [facility] [place] [facility] [address] [id number] [place] [address]- 4982 Sep, [facility] [place] [facility] [address] [id number] [place] [address]- 0431 Sep, [facility] [place] [facility] [address] [id number] [place] [address]- 1404 Sep, [facility] [place] [facility] [address] [id number] [place] [address]- 9000 Sep, [facility] [id number] [address]- 2546 Sep, [facility] [address] [address] 2546 Feb, [facility] [id number] [address]- 2546 Feb, [facility] [address] [place] [address] 85592- 2546 July, [facility] [address] [place] [address] 85333- 8985 Apr, [facility] [address] [place] [address] 71332- 2546 Apr, [facility] [address] [address] 2546 Apr, [facility] [id number] [address]- 2546 Apr, IMMUNIZATIONS No Known Immunizations SOCIAL HISTORY Never Assessed REASON FOR VISIT Requests return call PLAN OF CARE VITAL SIGNS MEDICATIONS Unknown [...] Intubation with ET tube and transferred to [facility] Trach placed 03/2017 due to A Fib resulting in anoxic brain injury and memory loss Surgical History Defibrillation placed 2017 Surgical History Trach/PEG Tube placed and removed [facility] after Intubation 2018 Surgical History heart surgery 2018 Hospitalization History ICU for Afib 09/2013 Hospitalization History Admitted to Transferred to Cardiac ICU/ Rehab 03/2017 Hospitalization History Coded, Defribrillated and ET tube placed for ventillation and transferred to [facility] 03/2017 Hospitalization History surgery 09/29/2017
--- OUTSIDE RECORDS SUMMARY | 2018-05-09 18:02 | XMS REPORT ---
Author Author KARI AMADOR Organization [facility] Address [address] [place] [address] Care Team Providers Care Piercer Name Role Phone KARI AMADOR Unavailable PROBLEMS Type Condition ICD9-CM Code LUE00-BT Code Onset Dates Condition Status SNOMED Code Problem Cardiomyopathy I42.9 Active 27121539 Problem Anoxic brain injury G93.1 Active 981455940 Problem Adjustment disorder with depressed mood F43.21 Active 81734072 Problem Cardiac defibrillator in place Z95.810 Active 108907605 Problem 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 I48.2 Active 796270440 Problem detention (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.01 Active 433544144 Problem History of cardiac arrest Z86.74 Active 383602982 Problem Non-ischemic cardiomyopathy I42.8 Active 20793312 ALLERGIES No Information ENCOUNTERS Encounter Location Date Diagnosis [facility] [id number] [place] [address] 35496- 2567 Sep, 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 I48.2 ; Non-ischemic cardiomyopathy I42.8 ; Anoxic brain injury G93.1 and Adjustment disorder with depressed mood F43.21 [facility] [address] [place] [address] 54694- 6840 Aug, [facility] [id number] [place] [address] 78383- 5391 July, [facility] [id number] [place] [address] 28585- 7075 July, [facility] [id number] [place] [address] 41505- 6331 Jun, Adjustment disorder with depressed mood F43.21 [facility] [id number] [place] [address] 45302- 7852 Jun, [facility] [address], [place] [address] 8327 Jun, [facility] [id number] [place] [address] 04927- 7249 May, [facility] [address] [place] [address] 34742- 3046 May, [facility] [id number] [place] [address] 28456- 5378 May, [facility] [id number] [place] [address] 16413- 2297 15 May, 2017 [facility] [id number] [place] [address] 77247- 1394 May, History of cardiac arrest Z86.74 ; Cardiac defibrillator in place Z95.810 ; 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 I48.2 and Current moderate episode of major depressive disorder without prior episode F32.1 [facility] [address], [place] [address]- 6854 May, [facility] [address] [place] [address] 07126- 0825 Mar, light cleaner (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.01 [facility] [address], [place] [address]- 6840 Mar, [facility] [address] [place] [address] 12340- 3630 Mar, detention (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.01 [facility] [address], [place] [address]- 5668 Feb, Afib I48.91 [facility] [id number] [place] [address] 78696- 6361 Feb, detention (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.01 [facility] [address], [place] [address] Jan, Other viral agents as the cause of diseases classified elsewhere B97.89 ; Acute upper respiratory infection, unspecified J06.9 and Body aches R52 [facility] [id number] [place] [address] 11699- 8772 Jan, Afib I48.91 [facility] [id number] [place] [address] 08710- 3142 Jan, Afib I48.91 and light cleaner (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.01 [facility] [id number] [place] [address] 23030- 4676 Dec, Afib I48.91 [facility] [id number] [place] [address] 90888- 9834 Dec, 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 I48.2 [facility] [id number] [place] [address] 24906- 5055 Nov, Hypertension I10 [facility] [id number] [place] [address] 84505- 7767 Oct, 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 I48.2 [facility] [id number] [place] [address] 23631- 5764 Oct, light cleaner (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.01 [facility] [id number] [place] [address] 81505- 1055 Oct, 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 I48.2 [facility] [id number] [place] [address] 25390- 1026 Oct, 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 I48.2 [facility] [address] [place] [address] 54849- 4927 Sep, light cleaner (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.01 ; Hypertension I10 ; Cardiomyopathy I42.9 and Afib I48.91 [facility] [id number] [place] [address] 04728- 8941 Sep, light cleaner (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.01 ; Hypertension I10 ; Cardiomyopathy I42.9 and Afib I48.91 [facility] [id number] [place] [address] 55533- 9000 Aug, detention (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.01 [facility] [id number] [place] [address] 11346- 9786 Aug, detention (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.01 [facility] [address] 37219- 1853 Aug, light cleaner (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.01 [facility] [id number] [place] [address] 01827- 8440 July, light cleaner (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.01 [facility] [id number] [place] [address] 65510- 6047 Jun, detention (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.01 [facility] [id number] [place] [address] 88003- 7542 Jun, light cleaner (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.01 [facility] [id number] [place] [address] 95534- 0388 May, 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 I48.2 [facility] [id number] [place] [address] 26260- 7358 17 May, 2016 [facility] [id number] [place] [address] 55100- 2164 May, detention (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.01 [facility] [id number] [place] [address] 54667- 8026 May, detention (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.01 [facility] [id number] [place] [address] 05978- 1436 May, Afib I48.91 ; Non-ischemic cardiomyopathy I42.8 ; Hypotension, unspecified hypotension type I95.9 and Heart palpitations R00.2 [facility] [address] [place] [address] 92576- 2204 16 Apr, 2016 detention (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.01 [facility] [address] [place] [address] 57488 2546 13 Apr, 2016 light cleaner (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.01 [facility] [id number] [place] [address] 73069 2546 Mar, detention (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.01 [facility] [id number] [place] [address] 23017 2546 Feb, light cleaner (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.01 [facility] [id number] [place] [address] 91995 2546 Feb, light cleaner (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.01 [facility] [id number] [place] [address] 28418 254 Jan, detention (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.01 [facility] [id number] [place] [address] 99978- 1276 Jan, light cleaner (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.01 [facility] [address] [place] [address] 03065- 3546 Dec, light cleaner (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.01 [facility] [address] [place] [address] 47272 2546 Dec, light cleaner (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.01 [facility] [id number] [place] [address] 35351 2546 Oct, light cleaner (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.01 [facility] [address] [place] [address] 61723- 2546 Oct, light cleaner (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.01 [facility] [id number] [place] [address] 27727- 4443 Oct, Afib I48.91 ; Cardiomyopathy I42.9 ; Palpitations R00.2 and Non-rheumatic tricuspid valve insufficiency I36.1 [facility] [id number] [place] [address] 01693- 1448 Sep, 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 I48.2 ; detention (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.01 ; Cardiomyopathy I42.9 and Hypertension I10 [facility] [id number] [place] [address] 04429 -4181 Aug, Allergic rhinitis, unspecified allergic rhinitis type J30.9 [facility] [address] 61773- 8066 Aug, detention (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.01 [place] [facility] [address] 64836- 9034 Jun, light cleaner (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.01 [place] [address] 65242- 8672 Jun, detention (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.01 [facility] [address] 97056- 8195 Jun, light cleaner (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.01 [facility] [address] 18526- 3473 Jun, [facility] [address] 11435- 3159 May, Encounter for long-term (current) use of anticoagulants V58.61 [facility] [address] 49741- 3147 May, Encounter for long-term (current) use of anticoagulants V58.61 [facility] [id number] [place] [address] 51315- 9239 May, Encounter for long-term (current) use of anticoagulants V58.61 [facility] [id number] [place] [address] 98015- 9669 Apr, Encounter for long-term (current) use of anticoagulants V58.61 [facility] [id number] [place] [address] 29645- 2743 Apr, light cleaner (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.01 [place] [facility] [address] 81439- 5556 Apr, Afib I48.91 ; Hypertension I10 ; Cardiomyopathy I42.9 and Palpitations R00.2 [facility] [address] 88779- 6955 Mar, light cleaner (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.01 [facility] [address] 95971- 6831 Mar, Encounter for long-term (current) use of anticoagulants V58.61 [facility] [id number] [place] [address] 36971- 9291 Mar, Encounter for long-term (current) use of anticoagulants V58.61 [facility] [id number] [place] [address] 95795- 6096 Mar, detention (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.01 and Encounter for therapeutic drug level monitoring Z51.81 [facility] [id number] [place] [address] 13162- 2245 Feb, light cleaner (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.01 and Encounter for therapeutic drug level monitoring Z51.81 [facility] [address] 14478- 2386 Feb, Encounter for long-term (current) use of anticoagulants V58.61 [facility] [id number] [place] [address] 75958- 8341 Feb, [facility] [address] [place] [address]- 1213 15 Feb, 2015 Encounter for long-term (current) use of anticoagulants V58.61 [facility] [address] [place] [address] 27576- 4948 Feb, Encounter for therapeutic drug level monitoring Z51.81 [facility] [address] [place] [address] 95120- 3276 Jan, [facility] [id number] [place] [address] 73182- 2400 Dec, Encounter for long-term (current) use of anticoagulants V58.61 and Atrial fibrillation 427.31 [facility] [id number] [place] [address] 20190- 6346 Dec, Chest wall muscle strain S29.011A [facility] [id number] [place] [address] 52977- 2545 Nov, Encounter for long-term (current) use of anticoagulants V58.61 and Atrial fibrillation 427.31 [facility] [address] [place] [address] 32800- 9917 Nov, Atrial fibrillation 427.31 [facility] [address] [place] [address] 90380- 0316 Nov, [facility] [address], [place] [address]- 5759 Nov, Atrial fibrillation 427.31 [facility] [address] [place] [address] 61844- 6368 Nov, Atrial fibrillation 427.31 [facility] [address] [place] [address] 59302- 7175 Oct, Encounter for long-term (current) use of anticoagulants V58.61 [facility] [address], [place] [address] 2546 Sep, Encounter for long-term (current) use of anticoagulants V58.61 [facility] [address] [address]- 8028 Aug, Encounter for long-term (current) use of anticoagulants V58.61 [facility] [address] [facility] [id number] [address]- 5501 July, [facility] [id number], [place] [address]- 9495 July, [facility] [address] [facility] [id number], [place] [address]- 1913 July, [facility] [address] [facility] [id number], [place] [address]- 4008 Jun, [facility] [address], [place] [address]- 1121 Jun, [facility] [address], [place] [address]- 8267 May, [facility] [address], [place] [address]- 7309 May, [facility] [id number], [place] [address]- 7199 May, [facility] [address], [place] [address]- 6787 Apr, [facility] [id number], [place] [address]- 3307 Apr, [facility] [id number], [place] [address]- 9898 Apr, [facility] [id number], [place] [address]- 3803 Apr, [facility] [id number], [place] [address]- 2159 Apr, [facility] [id number] 7536 Apr, [facility] [id number] [place] [address]- 1636 Apr, [facility] [address] [id number] [place] [address]- 7192 Mar, [facility] [place] [facility] [address] [id number] [place] [address]- 1546 Mar, [facility] [address] [id number] [place] [address]- 1339 Mar, [facility] [address] [id number] [place] [address]- 5282 Mar, [facility] [address] [id number] [place] [address]- 5401 Mar, [facility] [address] [id number] [place] [address]- 0673 Mar, [facility] [address] [id number] [place] [address]- 9912 Mar, [facility] [address] [id number] [place] [address]- 3033 Mar, [facility] [address] [id number] [place] [address]- 6080 Feb, [facility] [address] [id number] [place] [address]- 0370 Feb, [facility] [place] [facility] [address] [id number] [place] [address]- 7556 Feb, [facility] [place] [facility] [address] [id number] [place] [address]- 4695 Feb, [facility] [place] [facility] [address] [id number] [place] [address]- 0997 Feb, [facility] [place] [facility] [address] [id number] [place] [address]- 0476 Feb, [facility] [place] [facility] [address] [id number] [place] [address]- 5868 Jan, [facility] [place] [facility] [address] [id number] [place] [address]- 7491 Jan, [facility] [place] [facility] [address] [id number] [place] [address]- 9419 Jan, [facility] [place] [facility] [address] [id number] [place] 2572 Jan, [facility] [place] [facility] [address] [id number] [place] [address]- 5152 Jan, [facility] [place] [facility] [address] [id number] [place] [address]- 6850 Jan, [facility] [place] [facility] [address] [id number] [place] [address]- 7236 Dec, [facility] [place] [facility] [address] [id number] [place] [address]- 3717 Dec, [facility] [place] [facility] [address] [id number] [place] [address]- 2726 Dec, [facility] [place] [facility] [address] [id number] [place] [address]- 7022 Dec, [facility] [place] [facility] [address] [id number] [place] [address]- 5304 Nov, [facility] [place] [facility] [address] [id number] [place] [address]- 0795 Nov, [facility] [place] [facility] [address] [id number] [place] [address]- 3425 Oct, [facility] [place] [facility] [address] [id number] [place] [address]- 2583 Oct, [facility] [place] [facility] [address] [id number] [place] [address]- 0834 Oct, [facility] [place] [facility] [address] [id number] [place] 8591 Oct, [facility] [place] [facility] [address] [id number] [place] [address]- 1548 Oct, [facility] [place] [facility] [address] [id number] [place] [address]- 2228 Oct, [facility] [place] [facility] [address] [id number] [place] [address]- 9225 Sep, [facility] [place] [facility] [address] [id number] [place] [address]- 5086 Sep, [facility] [place] [facility] [address] [id number] [place] [address]- 3243 Sep, [facility] [place] [facility] [address] [id number] [place] [address]- 6866 Sep, [facility] [place] [facility] [address] [id number] [place] [address]- 9135 Sep, [facility] [place] [facility] [address] [id number] [place] [address]- 1947 Sep, [facility] [place] [facility] [address] [id number] [place] [address]- 3508 Sep, [facility] [place] [facility] [address] [id number] [place] [address]- 8237 Sep, [facility] [place] [facility] [address] [id number] [place] [address]- 0344 Sep, [facility] [place] [facility] [address] [id number] [place] [address]- 3573 Sep, [facility] [place] [facility] [address] [id number] [place] [address]- 8795 Sep, [facility] [place] [facility] [address] [id number] [place] [address]- 0707 Sep, [facility] [place] [facility] [address] [id number] [place] [address]- 2173 Sep, [facility] [place] [facility] [address] [id number] [place] [address]- 9799 Sep, [facility] [place] [facility] [id number] [address]- 3913 Feb, [facility] [id number], [place] [address]- 0508 Feb, [facility] [address], [place] [address]- 8916 July, [facility] [id number], [place] [address]- 2559 Apr, [facility] [address], [place] [address]- 2332 Apr, [facility] [address], [place] [address]- 4452 Apr, [facility] [id number], [place] [address]- 5084 Apr, IMMUNIZATIONS No Known Immunizations SOCIAL HISTORY Never Assessed REASON FOR VISIT Referral PLAN OF CARE VITAL SIGNS MEDICATIONS No Known Medications RESULTS No Results PROCEDURES No Known procedures INSTRUCTIONS MEDICATIONS ADMINISTERED No Known Medications MEDICAL (GENERAL) HISTORY Type Description Date Medical History Atrial fibrillation Medical History hx of c. diff Medical History Stress test performed; EF 25% Last test 2015 was at 60% Medical History Palpitations Medical History Cardiac Arrest with CPR and Intubation with ET tube and transferred to [facility] Trach placed 03/2017 due to A Fib resulting in anoxic brain injury and memory loss Surgical History Defibrillation placed 2017 Surgical History Trach/PEG Tube placed and removed [facility] after Intubation 2018 Surgical History heart surgery 2018 Hospitalization History ICU for Afib 09/2013 Hospitalization History Admitted to Transferred to Cardiac ICU/ Rehab 03/2017 Hospitalization History Coded, Defribrillated and ET tube placed for ventillation and transferred to [facility] 03/2017 Hospitalization History surgery 09/29/2017
--- OUTSIDE RECORDS SUMMARY | 2018-05-09 18:02 | XMS REPORT ---
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 AMADOR Unavailable PROBLEMS Type Condition ICD9-CM Code [id number] Code Onset Dates Condition Status SNOMED Code Problem Cardiomyopathy I42.9 Active 82421153 Problem Anoxic brain injury G93.1 Active 378040765 Problem Adjustment disorder with depressed mood F43.21 Active 26282523 Problem Cardiac defibrillator in place Z95.810 Active 150489641 Problem 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 I48.2 Active 522731318 Problem correction (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.01 Active 001717051 Problem History of cardiac arrest Z86.74 Active 057695659 Problem Non-ischemic cardiomyopathy I42.8 Active 57758253 ALLERGIES No Information ENCOUNTERS Encounter Location Date Diagnosis [facility] [id number] [place] [address] 02970- 1933 Sep, 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 I48.2 ; Non-ischemic cardiomyopathy I42.8 ; Anoxic brain injury G93.1 and Adjustment disorder with depressed mood F43.21 [facility] [id number] [place] [address] 44127- 2423 Aug, [facility] [id number] [place] [address] 65075- 7564 July, [facility] [id number] [place] [address] 06753- 4227 July, [facility] [id number] [place] [address] 10874- 1271 Jun, Adjustment disorder with depressed mood F43.21 [facility] [id number] [place] [address] 50321- 4698 Jun, [facility] [address] [address] 3552 Jun, [facility] [id number] [place] [address] 72402- 9753 May, [facility] [id number] [place] [address] 02899- 6693 May, [facility] [id number] [place] [address] 62156- 9826 May, [facility] [id number] [place] [address] 01458- 7100 15 May, 2017 [facility] [id number] [place] [address] 42041- 3732 May, History of cardiac arrest Z86.74 ; Cardiac defibrillator in place Z95.810 ; 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 I48.2 and Current moderate episode of major depressive disorder without prior episode F32.1 [facility] [address] [address]- 7983 May, [facility] [id number] [place] [address] 46722- 7944 Mar, 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 [facility] [address] [address]- 1258 Mar, [facility] [id number] [place] [address] 72629- 7355 Mar, correction (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.01 [facility] [address] [address]- 7981 Feb, Afib I48.91 [facility] [id number] [place] [address] 74381- 4124 Feb, correction (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.01 [facility] [address] [address] Jan, Other viral agents as the cause of diseases classified elsewhere B97.89 ; Acute upper respiratory infection, unspecified J06.9 and Body aches R52 [facility] [id number] [place] [address] 55452- 7483 Jan, Afib I48.91 [facility] [id number] [place] [address] 63047- 3521 Jan, Afib I48.91 and 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 [facility] [id number] [place] [address] 32130- 1956 Dec, Afib I48.91 [facility] [id number] [place] [address] 71581- 6268 Dec, 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 I48.2 [facility] [id number] [place] [address] 50236- 9091 Nov, Hypertension I10 [facility] [id number] [place] [address] 54177- 7770 Oct, 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 I48.2 [facility] [id number] [place] [address] 70660- 3083 Oct, 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 [facility] [id number] [place] [address] 84132- 6703 Oct, 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 I48.2 [facility] [id number] [place] [address] 30076- 5638 Oct, 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 I48.2 [facility] [id number] [place] [address] 08536- 8659 Sep, 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 ; Hypertension I10 ; Cardiomyopathy I42.9 and Afib I48.91 [facility] [id number] [place] [address] 92272- 8237 Sep, 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 ; Hypertension I10 ; Cardiomyopathy I42.9 and Afib I48.91 [facility] [id number] [place] [address] 83129- 1064 Aug, correction (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.01 [facility] [id number] [place] [address] 00626- 6120 Aug, correction (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.01 [facility] [address] 87125- 4007 Aug, 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 [facility] [id number] [place] [address] 24430- 9552 July, 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 [facility] [id number] [place] [address] 61795- 7526 Jun, correction (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.01 [facility] [id number] [place] [address] 67114- 6409 Jun, 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 [facility] [id number] [place] [address] 30151- 6672 May, 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 I48.2 [facility] [id number] [place] [address] 52752- 7899 17 May, 2016 [facility] [id number] [place] [address] 61436- 9737 May, correction (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.01 [facility] [id number] [place] [address] 13247- 5658 May, correction (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.01 [facility] [id number] [place] [address] 38481- 6192 May, Afib I48.91 ; Non-ischemic cardiomyopathy I42.8 ; Hypotension, unspecified hypotension type I95.9 and Heart palpitations R00.2 [facility] [address] [place] [address] 25251- 8723 16 Apr, 2016 correction (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.01 [facility] [id number] [place] [address] 02892 2546 13 Apr, 2016 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 [facility] [id number] [place] [address] 53762 2546 Mar, correction (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.01 [facility] [id number] [place] [address] 23554 2546 Feb, 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 [facility] [id number] [place] [address] 45258 2546 Feb, 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 [facility] [id number] [place] [address] 07212 254 Jan, correction (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.01 [facility] [id number] [place] [address] 56934- 8566 Jan, 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 [facility] [address] [place] [address] 60197- 3526 Dec, 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 [facility] [address] [place] [address] 76688 2546 Dec, 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 [facility] [id number] [place] [address] 21560 2546 Oct, 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 [facility] [address] [place] [address] 18484- 2546 Oct, 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 [facility] [id number] [place] [address] 84080- 2132 Oct, Afib I48.91 ; Cardiomyopathy I42.9 ; Palpitations R00.2 and Non-rheumatic tricuspid valve insufficiency I36.1 [facility] [id number] [place] [address] 11467- 0010 Sep, 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 I48.2 ; correction (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.01 ; Cardiomyopathy I42.9 and Hypertension I10 [facility] [id number] [place] [address] 70193 -7777 Aug, Allergic rhinitis, unspecified allergic rhinitis type J30.9 [facility] [address] 82059- 2070 Aug, correction (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.01 [facility] [address] 20644- 8545 Jun, 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 [facility] [address] 57144- 9178 Jun, correction (current) use of anticoagulants Z79.01 [facility] [address] 75708- 4412 Jun, 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 [facility] [address] 14082- 7478 Jun, [facility] [address] 18221- 8002 May, Encounter for long-term (current) use of anticoagulants V58.61 [facility] [address] 31911- 5114 May, Encounter for long-term (current) use of anticoagulants V58.61 [facility] [id number] [place] [address] 46764- 5795 May, Encounter for long-term (current) use of anticoagulants V58.61 [facility] [id number] [place] [address] 61363- 3300 Apr, Encounter for long-term (current) use of anticoagulants V58.61 [facility] [id number] [place] [address] 57889- 2906 Apr, 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 [facility] [address] 67735- 6407 Apr, Afib I48.91 ; Hypertension I10 ; Cardiomyopathy I42.9 and Palpitations R00.2 [facility] [address] 55919- 5728 Mar, 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 [facility] [address] 70669- 1180 Mar, Encounter for long-term (current) use of anticoagulants V58.61 [facility] [id number] [place] [address] 94143- 0456 Mar, Encounter for long-term (current) use of anticoagulants V58.61 [facility] [id number] [place] [address] 53759- 1418 Mar, correction (current) use of anticoagulants Z79.01 and Encounter for therapeutic drug level monitoring Z51.81 [facility] [id number] [place] [address] 28419- 6745 Feb, 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 and Encounter for therapeutic drug level monitoring Z51.81 [facility] [address] 62629- 6293 Feb, Encounter for long-term (current) use of anticoagulants V58.61 [facility] [id number] [place] [address] 37000- 9320 Feb, [facility] [address] [place] [address]- 0288 15 Feb, 2015 Encounter for long-term (current) use of anticoagulants V58.61 [facility] [id number] [place] [address] 13949- 1707 Feb, Encounter for therapeutic drug level monitoring Z51.81 [facility] [id number] [place] [address] 28445- 4206 Jan, [facility] [id number] [place] [address] 85298- 2928 Dec, Encounter for long-term (current) use of anticoagulants V58.61 and Atrial fibrillation 427.31 [facility] [id number] [place] [address] 90613- 8355 Dec, Chest wall muscle strain S29.011A [facility] [id number] [place] [address] 62416- 4540 Nov, Encounter for long-term (current) use of anticoagulants V58.61 and Atrial fibrillation 427.31 [facility] [address] [place] [address] 76646- 3554 Nov, Atrial fibrillation 427.31 [facility] [address] [place] [address] 40518- 7386 Nov, [facility] [address] [address]- 1654 Nov, Atrial fibrillation 427.31 [facility] [address] [place] [address] 13481- 0382 Nov, Atrial fibrillation 427.31 [facility] [address] [place] [address] 69498- 9094 Oct, Encounter for long-term (current) use of anticoagulants V58.61 [facility] [address] [address] 2546 Sep, Encounter for long-term (current) use of anticoagulants V58.61 [facility] [id number] [address]- 1402 Aug, Encounter for long-term (current) use of anticoagulants V58.61 [facility] [address] [facility] [id number] [address]- 3479 July, [facility] [id number] [address]- 9611 July, [facility] [address] [facility] [id number] [address]- 9540 July, [facility] [address] [facility] [id number] [address]- 3050 Jun, [facility] [address] [address]- 0164 Jun, [facility] [address] [address]- 7974 May, [facility] [address] [address]- 7075 May, [facility] [id number] [address]- 2250 May, [facility] [address], [place] [address]- 8265 Apr, [facility] [id number] [address]- 8396 Apr, [facility] [id number] [address]- 1251 Apr, [facility] [id number] [address]- 9160 Apr, [facility] [id number] [address]- 2420 Apr, [facility] [id number]- 6766 Apr, [facility] [id number] [place] [address]- 3756 Apr, [facility] [address] [id number] [place] [address]- 3910 Mar, [facility] [place] [facility] [address] [id number] [place] [address]- 2406 Mar, [facility] [address] [id number] [place] [address]- 0082 Mar, [facility] [address] [id number] [place] [address]- 2825 Mar, [facility] [address] [id number] [place] [address]- 0762 Mar, [facility] [address] [id number] [place] [address]- 5153 Mar, [facility] [address] [id number] [place] [address]- 9411 Mar, [facility] [address] [id number] [place] [address]- 4504 Mar, [facility] [address] [id number] [place] [address]- 4188 Feb, [facility] [address] [id number] [place] [address]- 9137 Feb, [facility] [place] [facility] [address] [id number] [place] [address]- 9380 Feb, [facility] [place] [facility] [address] [id number] [place] [address]- 6313 Feb, [facility] [place] [facility] [address] [id number] [place] [address]- 1196 Feb, [facility] [place] [facility] [address] [id number] [place] [address]- 4926 Feb, [facility] [place] [facility] [address] [id number] [place] [address]- 4756 Jan, [facility] [place] [facility] [address] [id number] [place] [address]- 4321 Jan, [facility] [place] [facility] [address] [id number] [place] [address]- 0299 Jan, [facility] [place] [facility] [address] [id number] [place] 0824 Jan, [facility] [place] [facility] [address] [id number] [place] [address]- 1596 Jan, [facility] [place] [facility] [address] [id number] [place] [address]- 9900 Jan, [facility] [place] [facility] [address] [id number] [place] [address]- 1228 Dec, [facility] [place] [facility] [address] [id number] [place] [address]- 0763 Dec, [facility] [place] [facility] [address] [id number] [place] [address]- 9679 Dec, [facility] [place] [facility] [address] [id number] [place] [address]- 2568 Dec, [facility] [place] [facility] [address] [id number] [place] [address]- 5025 Nov, [facility] [place] [facility] [address] [id number] [place] [address]- 5253 Nov, [facility] [place] [facility] [address] [id number] [place] [address]- 0069 Oct, [facility] [place] [facility] [address] [id number] [place] [address]- 6214 Oct, [facility] [place] [facility] [address] [id number] [place] [address]- 0371 Oct, [facility] [place] [facility] [address] [id number] [place] 7637 Oct, [facility] [place] [facility] [address] [id number] [place] [address]- 0244 Oct, [facility] [place] [facility] [address] [id number] [place] [address]- 2098 Oct, [facility] [place] [facility] [address] [id number] [place] [address]- 7824 Sep, [facility] [place] [facility] [address] [id number] [place] [address]- 8923 Sep, [facility] [place] [facility] [address] [id number] [place] [address]- 5285 Sep, [facility] [place] [facility] [address] [id number] [place] [address]- 8295 Sep, [facility] [place] [facility] [address] [id number] [place] [address]- 6950 Sep, [facility] [place] [facility] [address] [id number] [place] [address]- 5772 Sep, [facility] [place] [facility] [address] [id number] [place] [address]- 4994 Sep, [facility] [place] [facility] [address] [id number] [place] [address]- 2795 Sep, [facility] [place] [facility] [address] [id number] [place] [address]- 5010 Sep, [facility] [place] [facility] [address] [id number] [place] [address]- 0540 Sep, [facility] [place] [facility] [address] [id number] [place] [address]- 2716 Sep, [facility] [place] [facility] [address] [id number] [place] [address]- 9995 Sep, [facility] [place] [facility] [address] [id number] [place] [address]- 9406 Sep, [facility] [place] [facility] [address] [id number] [place] [address]- 3078 Sep, [facility] [place] [facility] [id number] [address]- 9521 Feb, [facility] [id number] 7421 Feb, [facility] [address] [address]- 1127 July, [facility] [id number] [address]- 1633 Apr, [facility] [address] [address]- 2770 Apr, [facility] [address] 2932 Apr, [facility] [id number] 0486 Apr, IMMUNIZATIONS No Known Immunizations SOCIAL HISTORY Never Assessed REASON FOR VISIT Requests return call PLAN OF CARE VITAL SIGNS MEDICATIONS No [...] Intubation with ET tube and transferred to [facility] Trach placed 03/2017 due to A Fib resulting in anoxic brain injury and memory loss Surgical History Defibrillation placed 2017 Surgical History Trach/PEG Tube placed and removed [facility] after Intubation 2018 Surgical History heart surgery 2018 Hospitalization History ICU for Afib 09/2013 Hospitalization History Admitted to Transferred to Cardiac ICU/ Rehab 03/2017 Hospitalization History Coded, Defribrillated and ET tube placed for ventillation and transferred to [facility] 03/2017 Hospitalization History surgery 09/29/2017
--- OUTSIDE RECORDS SUMMARY | 2018-05-09 18:03 | XMS REPORT ---
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 Role Phone PENNY JEWELL Unavailable PROBLEMS Type Condition ICD9-CM Code TYS02-NA Code Onset Dates Condition Status SNOMED Code Problem Cardiomyopathy I42.9 Active 01790415 Problem Anoxic brain injury G93.1 Active 233171954 Problem Adjustment disorder with depressed mood F43.21 Active 77071570 Problem Cardiac defibrillator in place Z95.810 Active 513807824 Problem 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 I48.2 Active 845100842 Problem shelter (current) use of anticoagulants Z79.01 Active 528826382 Problem History of cardiac arrest Z86.74 Active 633075721 Problem Non-ischemic cardiomyopathy I42.8 Active 42240398 ALLERGIES No Information ENCOUNTERS Encounter Location Date Diagnosis [facility] [facility] [id number] [place] [address] 50308- 3881 Sep, 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 I48.2 ; Non-ischemic cardiomyopathy I42.8 ; Anoxic brain injury G93.1 and Adjustment disorder with depressed mood F43.21 [facility] [facility] [id number] [place] [address] 63205- 7868 Aug, [facility] [place] [id number] [place] [address] 31724- 2177 July, [facility] [place] [id number] [place] [address] 99639- 8317 July, [place] [address] 97816- 3920 Jun, Adjustment disorder with depressed mood F43.21 [place] [facility] [id number] [place] [address] 22014- 3981 Jun, [place] [id number] [address] 7662 Jun, [facility] [place] [address], [place] [address] 7130 29 May, 2017 [facility] [place] [address] [address]- 0773 May, [facility] [place] [id number] [place] [address] 93257- 1662 16 May, 2017 [facility] [place] [address], [place] [address] 0705 15 May, 2017 [facility] [place] [id number] [place] [address] 06359- 4416 13 May, 2017 History of cardiac arrest Z86.74 ; Cardiac defibrillator in place Z95.810 ; 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 I48.2 and Current moderate episode of major depressive disorder without prior episode F32.1 [facility] [place] [address] [address]- 7235 May, [facility] [place] [id number] [place] [address] 04848- 7814 Mar, 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 [facility] [place] [address] [address]- 5252 Mar, [facility] [place] [address] [address]- 1608 Mar, 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 [facility] [place] [address] [address]- 2910 Feb, Afib I48.91 [facility] [place] [id number] [place] [address] 62853- 4718 Feb, shelter (current) use of anticoagulants Z79.01 [facility] [address] [address] Jan, Other viral agents as the cause of diseases classified elsewhere B97.89 ; Acute upper respiratory infection, unspecified J06.9 and Body aches R52 [facility] [id number] [place] [address] 80167- 3086 Jan, Afib I48.91 [place] [id number] [place] [address] 95567- 1212 Jan, Afib I48.91 and 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 [place] [id number] [place] [address] 22140- 9569 Dec, Afib I48.91 [place] [address] 36296- 2739 Dec, 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 I48.2 [place] [id number] [place] [address] 66731- 6149 Nov, Hypertension I10 [place] [id number] [place] [address] 40979- 4648 Oct, 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 I48.2 [place] [id number] [place] [address] 73599- 8776 Oct, shelter (current) use of anticoagulants Z79.01 [place] [id number] [place] [address] 96078- 1427 Oct, 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 I48.2 [facility] [id number] [place] [address] 08082- 1709 Oct, 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 I48.2 [facility] [id number] [place] [address] 81018- 9810 Sep, 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 ; Hypertension I10 ; Cardiomyopathy I42.9 and Afib I48.91 [place] [id number] [place] [address] 35282- 4477 Sep, 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 ; Hypertension I10 ; Cardiomyopathy I42.9 and Afib I48.91 [facility] [id number] [place] [address] 32610- 3250 Aug, shelter (current) use of anticoagulants Z79.01 [facility] [id number] [place] [address] 30648- 0716 Aug, shelter (current) use of anticoagulants Z79.01 [facility] [id number] [place] [address] 42497- 7735 Aug, 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 [facility] [id number] [place] [address] 10185- 5352 July, shelter (current) use of anticoagulants Z79.01 [facility] [id number] [place] [address] 19609- 0291 Jun, 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 [place] [id number] [place] [address] 47521- 7870 Jun, 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 [place] [id number] [place] [address] 16523- 4640 May, 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 I48.2 [place] [id number] [place] [address] 16841- 4781 17 May, 2016 [place] [id number] [place] [address] 97222- 0406 May, shelter (current) use of anticoagulants Z79.01 [place] [id number] [place] [address] 14786- 4871 May, shelter (current) use of anticoagulants Z79.01 [place] [id number] [place] [address] 95084- 9538 May, Afib I48.91 ; Non-ischemic cardiomyopathy I42.8 ; Hypotension, unspecified hypotension type I95.9 and Heart palpitations R00.2 [facility] [place] [address] [address]- 7317 16 Apr, 2016 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 [facility] [place] [id number] [place] [address] 75723- 2546 13 Apr, 2016 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 [facility] [place] [id number] [place] [address] 66820 2546 Mar, shelter (current) use of anticoagulants Z79.01 [place] [id number] [place] [address] 58818 2546 Feb, shelter (current) use of anticoagulants Z79.01 [place] [id number] [place] [address] 21072- 2546 Feb, shelter (current) use of anticoagulants Z79.01 [place] [id number] [place] [address] 96184 2547 Jan, 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 [place] [id number] [place] [address] 83106 2544 Jan, shelter (current) use of anticoagulants Z79.01 [place] [id number] [place] [address] 78695- 6126 Dec, shelter (current) use of anticoagulants Z79.01 [place] [id number] [place] [address] 86790 2546 Dec, 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 [place] [id number] [place] [address] 95560 2546 Oct, shelter (current) use of anticoagulants Z79.01 [place] [id number] [place] [address] 09108- 2546 Oct, 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 [place] [id number] [place] [address] 27922- 0938 Oct, Afib I48.91 ; Cardiomyopathy I42.9 ; Palpitations R00.2 and Non-rheumatic tricuspid valve insufficiency I36.1 [place] [id number] [place] [address] 15228- 6090 Sep, 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 I48.2 ; shelter (current) use of anticoagulants Z79.01 ; Cardiomyopathy I42.9 and Hypertension I10 [facility] [id number] [place] [address] 47328 -5919 Aug, Allergic rhinitis, unspecified allergic rhinitis type J30.9 [place] [address] 96068- 4815 Aug, shelter (current) use of anticoagulants Z79.01 [place] [address] 68852- 0280 Jun, shelter (current) use of anticoagulants Z79.01 [place] [address] 69192- 6450 Jun, 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 [place] [address] 25909- 5395 Jun, shelter (current) use of anticoagulants Z79.01 [place] [id number] [place] [address] 60171- 0477 Jun, [place] [address] 98504- 8370 May, Encounter for long-term (current) use of anticoagulants V58.61 [place] [address] 72702- 8254 May, Encounter for long-term (current) use of anticoagulants V58.61 [place] [id number] [place] [address] 60637- 8227 May, Encounter for long-term (current) use of anticoagulants V58.61 [place] [id number] [place] [address] 07058- 0982 Apr, Encounter for long-term (current) use of anticoagulants V58.61 [place] [id number] [place] [address] 17774- 2705 Apr, shelter (current) use of anticoagulants Z79.01 [place] [id number] [place] [address] 42299- 3105 Apr, Afib I48.91 ; Hypertension I10 ; Cardiomyopathy I42.9 and Palpitations R00.2 [place] [address] 72021- 8792 Mar, 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 [place] [id number] [place] [address] 80459- 5333 Mar, Encounter for long-term (current) use of anticoagulants V58.61 [place] [id number] [place] [address] 70623- 4506 Mar, Encounter for long-term (current) use of anticoagulants V58.61 [place] [id number] [place] [address] 20133- 6380 Mar, 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 and Encounter for therapeutic drug level monitoring Z51.81 [place] [id number] [place] [address] 18702- 4334 Feb, 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 and Encounter for therapeutic drug level monitoring Z51.81 [place] [id number] [place] [address] 15344- 8847 Feb, Encounter for long-term (current) use of anticoagulants V58.61 [place] [id number] [place] [address] 98790- 9064 Feb, [place] [address] 86509- 3696 Feb, Encounter for long-term (current) use of anticoagulants V58.61 [place] [id number] [place] [address] 69829- 3576 Feb, Encounter for therapeutic drug level monitoring Z51.81 [place] [id number] [place] [address] 66436- 8716 Jan, [place] [id number] [place] [address] 38798- 2703 Dec, Encounter for long-term (current) use of anticoagulants V58.61 and Atrial fibrillation 427.31 [place] [id number] [place] [address] 95697- 3456 Dec, Chest wall muscle strain S29.011A [place] [address] [place] [address] 33994- 6568 Nov, Encounter for long-term (current) use of anticoagulants V58.61 and Atrial fibrillation 427.31 [place] [address] [place] [address] 10346- 7779 Nov, Atrial fibrillation 427.31 [place] [id number] [place] [address] 17148- 6976 Nov, [place] [id number] [place] [address] 58503- 1090 Nov, Atrial fibrillation 427.31 [place] [id number] [place] [address] 53050- 1151 Nov, Atrial fibrillation 427.31 [place] [id number] [place] [address] 22944- 2894 Oct, Encounter for long-term (current) use of anticoagulants V58.61 [place] [address] [address] 2546 Sep, Encounter for long-term (current) use of anticoagulants V58.61 [place] [id number] [address]- 0524 Aug, Encounter for long-term (current) use of anticoagulants V58.61 [facility] [address] [facility] [id number] [address]- 5907 July, [facility] [address] [facility] [id number] [address]- 3911 July, [facility] [address] [facility] [id number] [address]- 3961 July, [facility] [address] [facility] [id number] [address]- 4646 Jun, [facility] [address], [place] [address]- 2631 Jun, [facility] [address], [place] [address]- 5553 May, [facility] [id number] [address]- 8748 May, [facility] [id number] [address]- 0969 May, [facility] [address], [place] [address]- 0570 Apr, [facility] [address], [place] [address]- 2558 Apr, [facility] [id number] [address]- 9070 Apr, [facility] [id number], [place] [address]- 8077 Apr, [facility] [id number] [address]- 1025 Apr, [facility] [id number] 5469 Apr, [facility] [address] [place] [address]- 2352 Apr, [facility] [address] [id number] [place] [address]- 2382 Mar, [facility] [place] [facility] [address] [id number] [place] [address]- 9159 Mar, [facility] [address] [id number] [place] [address]- 2633 Mar, [facility] [address] [id number] [place] [address]- 6376 Mar, [facility] [address] [id number] [place] [address]- 6637 Mar, [facility] [address] [id number] [place] [address]- 4735 Mar, [facility] [address] [id number] [place] [address]- 5534 Mar, [facility] [address] [id number] [place] [address]- 6904 Mar, [facility] [address] [id number] [place] [address]- 7965 Feb, [facility] [address] [id number] [place] [address]- 3316 Feb, [facility] [place] [facility] [address] [id number] [place] [address]- 0265 Feb, [facility] [place] [facility] [address] [id number] [place] [address]- 6262 Feb, [facility] [place] [facility] [address] [id number] [place] [address]- 5416 Feb, [facility] [place] [facility] [address] [id number] [place] [address]- 0814 Feb, [facility] [place] [facility] [address] [id number] [place] [address]- 6762 Jan, [facility] [place] [facility] [address] [id number] [place] [address]- 4838 Jan, [facility] [place] [facility] [address] [id number] [place] [address]- 9851 Jan, [facility] [place] [facility] [address] [id number] [place] [address]- 6872 Jan, [facility] [place] [facility] [address] [id number] [place] [address]- 3777 Jan, [facility] [place] [facility] [address] [id number] [place] [address]- 0710 Jan, [facility] [place] [facility] [address] [id number] [place] [address]- 9807 Dec, [facility] [place] [facility] [address] [id number] [place] [address]- 5934 Dec, [facility] [place] [facility] [address] [id number] [place] [address]- 1622 Dec, [facility] [place] [facility] [address] [id number] [place] [address]- 3364 Dec, [facility] [place] [facility] [address] [id number] [address]- 2094 Nov, [facility] [place] [facility] [address] [id number], [place] [address]- 7450 Nov, [facility] [place] [facility] [address] [id number] [address]- 0118 Oct, [facility] [place] [facility] [address] [id number] [place] [address]- 9762 Oct, [facility] [place] [facility] [address] [id number] [place] [address]- 1298 Oct, [facility] [place] [facility] [address] [id number] [address]- 1109 Oct, [facility] [place] [facility] [address] [id number], [place] [address]- 2947 Oct, [facility] [place] [facility] [address] [id number] [place] [address]- 1077 Oct, [facility] [place] [facility] [address] [id number] [place] [address]- 3907 Sep, [facility] [place] [facility] [address] [id number] [place] [address]- 2527 Sep, [facility] [place] [facility] [address] [id number] [place] [address]- 6286 Sep, [facility] [place] [facility] [address] [id number] [place] [address]- 3669 Sep, [facility] [place] [facility] [address] [id number] [place] [address]- 2901 Sep, [facility] [place] [facility] [address] [id number] [place] [address]- 6461 Sep, [facility] [place] [facility] [address] [id number] [place] [address]- 2949 Sep, [facility] [place] [facility] [address] [id number] [place] [address]- 1025 Sep, [facility] [place] [facility] [address] [id number] [place] [address]- 2213 Sep, [facility] [place] [facility] [address] [id number] [place] [address]- 0642 Sep, [facility] [place] [facility] [address] [id number] [place] [address]- 4106 Sep, [facility] [place] [facility] [address] [id number] [place] [address]- 8169 Sep, [facility] [place] [facility] [address] [id number] [place] [address]- 7025 Sep, [facility] [place] [facility] [address] [id number] [place] [address]- 9648 Sep, [facility] [place] [facility] [address] [facility] [id number] 7047 Feb, [facility] [place] [id number] [address]- 7012 Feb, [facility] [place] [address] [address]- 8589 July, [facility] [place] [address] [address]- 4170 Apr, [facility] [place] [address] [address]- 6509 Apr, [facility] [place] [address] [address]- 5931 Apr, [facility] [place] [id number] [address]- 8915 Apr, IMMUNIZATIONS No Known Immunizations SOCIAL HISTORY Never Assessed REASON FOR VISIT intake PLAN OF CARE Activity Details Follow Up 4 Weeks, 6 Weeks Reason: VITAL SIGNS Height 64 in 2017-06-30 Weight 202 lbs 2017-06-30 Heart Rate 88 bpm 2017-06-30 Respiratory Rate 20 2017-06-30 BMI 34.67 kg/m2 2017-06-30 Blood pressure systolic 132 mmHg 2017-06-30 Blood pressure diastolic 86 mmHg 2017-06-30 MEDICATIONS Medication Instructions Dosage Frequency Start Date End Date Duration Status Apixaban 5 mg Orally 2 times a day 12h Active Magnesium Oxide 400 mg Orally twice a day 1 tablet as needed 12h Active Zoloft 25 MG Orally Once a day 1 tablet 24h Jun, 30 day(s) Active Amiodarone HCl 200 mg Orally Once a day 1 tablet 24h 30 days Active Melatonin 5 MG Orally Once a day 1 tablet at bedtime as needed with food 24h Active Metoprolol Succinate ER 50 MG Orally Once a day 1 tablet 24h Active RESULTS No Results PROCEDURES No Known procedures INSTRUCTIONS MEDICATIONS ADMINISTERED No Known Medications MEDICAL (GENERAL) HISTORY Type Description Date Medical History Atrial fibrillation Medical History hx of c. diff Medical History Stress test performed; EF 25% Last test 2015 was at 60% Medical History Palpitations Medical History Cardiac Arrest with CPR and Intubation with ET tube and transferred to [facility] Trach placed 03/2017 due to A Fib resulting in anoxic brain injury and memory loss Surgical History Defibrillation placed 2017 Surgical History Trach/PEG Tube placed and removed [facility] after Intubation 2017 Surgical History heart surgery 2017 Hospitalization History ICU for Afib 09/2013 Hospitalization History Admitted to Transferred to Cardiac ICU/ Rehab 03/2017 Hospitalization History Coded, Defribrillated and ET tube placed for ventillation and transferred to [facility] 03/2017 Hospitalization History surgery 09/29/2017
--- OUTSIDE RECORDS SUMMARY | 2018-05-09 18:03 | XMS REPORT ---
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 786951360 Problem Cardiomyopathy I42.9 Active 71101969 Problem 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 I48.2 Active 141222666 Problem Post-cardiac injury syndrome I24.1 Active 02074523 Problem Anoxic brain injury G93.1 Active 060711688 Problem Hypertension I10 Active 30341989 Problem Adjustment disorder with depressed mood F43.21 Active 63081400 Problem Cardiac defibrillator in place Z95.810 Active 152581445 Problem Afib I48.91 Active 06544215 Problem Non-ischemic cardiomyopathy I42.8 Active 02887822 Problem History of cardiac arrest Z86.74 Active 371476064 Problem Current moderate episode of major depressive disorder without prior episode F32.1 Active 71021386 ALLERGIES No Information ENCOUNTERS Encounter Location Date Diagnosis [facility] [id number] [place] [address] 94021- 8729 Sep, [facility] [id number] [place] [address] 26693- 4998 Aug, [facility] [id number] [place] [address] 09929- 1002 July, [facility] [id number] [place] [address] 80163- 3981 July, [facility] [id number] [place] [address] 48937- 7343 Jun, Adjustment disorder with depressed mood F43.21 [facility] [address] [place] [address]- 0422 04 Jun, 2017 [facility] [address] [address] 8134 Jun, [facility] [id number] [place] [address] 19551- 4859 May, [facility] [id number] [place] [address] 68107- 2250 May, [facility] [id number] [place] [address] 21650- 0072 16 May, 2017 [facility] [id number] [place] [address] 88877- 5572 May, [facility] [id number] [place] [address] 76800- 4352 May, History of cardiac arrest Z86.74 ; Cardiac defibrillator in place Z95.810 ; 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 I48.2 and Current moderate episode of major depressive disorder without prior episode F32.1 [facility] [address] [place] [address] 62301- 7632 May, [facility] [id number] [place] [address] 94755- 9378 Mar, 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 [facility] [address] [place] [address] 97911- 1424 Mar, [facility] [id number] [place] [address] 75397- 6476 Mar, care home (current) use of anticoagulants Z79.01 [facility] [id number] [place] [address] 68317- 5307 Feb, Afib I48.91 [facility] [id number] [place] [address] 57429- 2575 Feb, 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 [facility] [id number] [place] [address] 32023 -5574 Jan, Other viral agents as the cause of diseases classified elsewhere B97.89 ; Acute upper respiratory infection, unspecified J06.9 and Body aches R52 [facility] [id number] [place] [address] 91299- 1707 Jan, Afib I48.91 [facility] [id number] [place] [address] 84394- 6037 Jan, Afib I48.91 and 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 [facility] [id number] [place] [address] 70218- 5087 Dec, Afib I48.91 [facility] [id number] [place] [address] 43195- 0794 Dec, 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 I48.2 [facility] [id number] [place] [address] 98915- 9141 Nov, Hypertension I10 [facility] [id number] [place] [address] 40258- 5174 Oct, 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 I48.2 [facility] [id number] [place] [address] 70349- 8014 Oct, care home (current) use of anticoagulants Z79.01 [facility] [id number] [place] [address] 84575- 9032 Oct, 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 I48.2 [facility] [id number] [place] [address] 05554- 4752 Oct, 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 I48.2 [facility] [id number] [place] [address] 32119- 0420 Sep, care home (current) use of anticoagulants Z79.01 ; Hypertension I10 ; Cardiomyopathy I42.9 and Afib I48.91 [facility] [id number] [place] [address] 19970- 9233 Sep, care home (current) use of anticoagulants Z79.01 ; Hypertension I10 ; Cardiomyopathy I42.9 and Afib I48.91 [facility] [id number] [place] [address] 50676- 3146 Aug, care home (current) use of anticoagulants Z79.01 [facility] [id number] [place] [address] 27519- 0606 Aug, 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 [facility] [id number] [place] [address] 23484 2546 Aug, 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 [facility] [id number] [place] [address] 59261- 8946 July, care home (current) use of anticoagulants Z79.01 [facility] [id number] [place] [address] 91692- 4872 Jun, care home (current) use of anticoagulants Z79.01 [facility] [id number] [place] [address] 01747- 0481 Jun, 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 [facility] [id number] [place] [address] 82181- 0836 May, 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 I48.2 [facility] [id number] [place] [address] 79298 2546 May, [facility] [id number] [place] [address] 73443 2546 May, care home (current) use of anticoagulants Z79.01 [facility] [id number] [place] [address] 22306 2546 May, 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 [facility] [address] [address] 2546 May, Afib I48.91 ; Non-ischemic cardiomyopathy I42.8 ; Hypotension, unspecified hypotension type I95.9 and Heart palpitations R00.2 [facility] [id number] [place] [address] 47400- 9706 16 Apr, 2016 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 [facility] [id number] [place] [address] 98360 2546 Apr, 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 [facility] [id number] [place] [address] 88927 2546 Mar, 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 [facility] [id number] [place] [address] 91485 2546 Feb, 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 [facility] [id number] [place] [address] 38618 2546 Feb, 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 [facility] [id number] [place] [address] 64472 2546 Jan, care home (current) use of anticoagulants Z79.01 [facility] [id number] [place] [address] 88702 2546 Jan, 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 [facility] [address] [place] [address] 29172 2546 Dec, 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 [facility] [address] [place] [address] 24090 2546 Dec, care home (current) use of anticoagulants Z79.01 [facility] [id number] [place] [address] 84312 2546 Oct, care home (current) use of anticoagulants Z79.01 [facility] [address] [place] [address] 78579 2546 Oct, care home (current) use of anticoagulants Z79.01 [facility] [id number] [place] [address] 42777- 2548 Oct, Afib I48.91 ; Cardiomyopathy I42.9 ; Palpitations R00.2 and Non-rheumatic tricuspid valve insufficiency I36.1 [facility] [id number] [place] [address] 20016- 3005 Sep, 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 I48.2 ; care home (current) use of anticoagulants Z79.01 ; Cardiomyopathy I42.9 and Hypertension I10 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 [facility] [id number] [place] [address] 02371- 2274 Jun, care home (current) use of anticoagulants Z79.01 [facility] [id number] [place] [address] 52005- 5894 Jun, care home (current) use of anticoagulants Z79.01 [facility] [id number] [place] [address] 71287- 1130 Jun, care home (current) use of anticoagulants Z79.01 [facility] [id number] [place] [address] 59281- 4498 Jun, [facility] [id number] [place] [address] 15895- 6456 May, Encounter for long-term (current) use of anticoagulants V58.61 [facility] [id number] [place] [address] 23840- 2245 May, Encounter for long-term (current) use of anticoagulants V58.61 [facility] [address] 61040- 6757 May, Encounter for long-term (current) use of anticoagulants V58.61 [facility] [address] [place] [address] 43807- 5986 Apr, Encounter for long-term (current) use of anticoagulants V58.61 [facility] [id number] [place] [address] 61983- 1573 Apr, care home (current) use of anticoagulants Z79.01 [facility] [id number] [place] [address] 82548- 3987 Apr, Afib I48.91 ; Hypertension I10 ; Cardiomyopathy I42.9 and Palpitations R00.2 [facility] [id number] [place] [address] 52020- 2223 Mar, 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 [facility] [id number] [place] [address] 46255- 5508 Mar, Encounter for long-term (current) use of anticoagulants V58.61 [facility] [id number] [place] [address] 94397- 8899 Mar, Encounter for long-term (current) use of anticoagulants V58.61 [facility] [id number] [place] [address] 21690- 7776 Mar, care home (current) use of anticoagulants Z79.01 and Encounter for therapeutic drug level monitoring Z51.81 [facility] [address] [place] [address] 02467- 0754 Feb, 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 and Encounter for therapeutic drug level monitoring Z51.81 [facility] [id number] [place] [address] 43074- 3346 Feb, Encounter for long-term (current) use of anticoagulants V58.61 [facility] [id number] [place] [address] 97307- 2529 Feb, [facility] [address], [place] [address]- 9226 Feb, Encounter for long-term (current) use of anticoagulants V58.61 [facility] [address] [place] [address] 095461- 1256 Feb, Encounter for therapeutic drug level monitoring Z51.81 [facility] [id number] [place] [address] 49493- 6155 Jan, [facility] [id number] [place] [address] 579306- 6914 Dec, Encounter for long-term (current) use of anticoagulants V58.61 and Atrial fibrillation 427.31 [facility] [address] [place] [address] 946794- 3945 Dec, Chest wall muscle strain S29.011A [facility] [address] [place] [address] 88214- 4532 Nov, Encounter for long-term (current) use of anticoagulants V58.61 and Atrial fibrillation 427.31 [facility] [id number] [place] [address] 08803- 7108 Nov, Atrial fibrillation 427.31 [facility] [address] [place] [address] 44244- 7121 Nov, [facility] [address] [place] [address] 30694- 7470 Nov, Atrial fibrillation 427.31 [facility] [address] [place] [address] 59374- 3632 Nov, Atrial fibrillation 427.31 [facility] [id number] [place] [address] 31346- 8886 Oct, Encounter for long-term (current) use of anticoagulants V58.61 [facility] [address] [place] [address] 53568- 2544 Sep, Encounter for long-term (current) use of anticoagulants V58.61 [facility] [address], [place] [address]- 7616 Aug, Encounter for long-term (current) use of anticoagulants V58.61 [facility] [id number], [place] [address]- 5536 July, [facility] [address], [place] [address]- 6210 July, [facility] [id number], [place] [address]- 0885 July, [facility] [id number] [place] [address] 85294- 3677 Jun, [facility] [address], [place] [address]- 3835 Jun, [facility] [address], [place] [address]- 9457 May, [facility] [id number], [place] [address]- 3142 May, [facility] [address] 7361 May, [facility] [address] 7035 Apr, [facility] [address], [place] [address]- 4946 Apr, [facility] [id number], [place] [address]- 0616 Apr, [facility] [address], [place] [address]- 2476 Apr, [facility] [id number], [place] [address]- 3186 Apr, [facility] [address], [place] [address]- 6775 Apr, [facility] [place] [facility] [address] [id number] [place] [address]- 3013 Apr, [facility] [place] [facility] [address] [id number] [place] [address]- 3083 Mar, [facility] [place] [facility] [address] [facility] [id number] [place] [address]- 2899 Mar, [facility] [place] [facility] [address] [id number] [place] [address]- 5228 Mar, [facility] [place] [facility] [address] [id number] [place] [address]- 4248 Mar, [facility] [place] [facility] [address] [id number] [place] [address]- 0041 Mar, [facility] [place] [facility] [address] [id number] [place] [address]- 4018 Mar, [facility] [place] [facility] [address] [id number], [place] [address]- 7631 Mar, [facility] [place] [facility] [address] [id number], [place] [address]- 3508 Mar, [facility] [place] [facility] [address] [id number] [place] [address]- 6066 Feb, [facility] [place] [facility] [address] [id number], [place] [address]- 8725 Feb, [facility] [place] [facility] [address] [id number], [place] [address]- 0784 Feb, [facility] [place] [facility] [address] [id number] [place] [address]- 4914 Feb, [facility] [place] [facility] [address] [id number] [place] [address]- 2006 Feb, [facility] [place] [facility] [address] [id number] [place] [address]- 9978 Feb, [facility] [place] [facility] [address] [id number] [place] [address]- 5373 Jan, [facility] [place] [facility] [address] [id number] [place] [address]- 7011 Jan, [facility] [place] [facility] [address] [id number] [place] [address]- 6297 Jan, [facility] [place] [facility] [address] [id number] [place] [address]- 7230 Jan, [facility] [place] [facility] [address] [id number] [place] [address]- 2792 Jan, [facility] [place] [facility] [address] [id number] [place] [address]- 3245 Jan, [facility] [place] [facility] [address] [id number] [place] [address]- 8980 Dec, [facility] [place] [facility] [address] [id number] [place] [address]- 5729 Dec, [facility] [place] [facility] [address] [id number] [place] [address]- 6823 Dec, [facility] [place] [facility] [address] [id number] [place] [address]- 8082 Dec, [facility] [place] [facility] [address] [id number] [place] [address]- 8139 Nov, [facility] [place] [facility] [address] [id number] [place] [address]- 3204 Nov, [facility] [place] [facility] [address] [id number] [place] [address]- 1040 Oct, [facility] [place] [facility] [address] [id number] [place] [address]- 1781 Oct, [facility] [place] [facility] [address] [id number] [place] [address]- 4858 Oct, [facility] [place] [facility] [address] [id number] [place] [address]- 9696 Oct, [facility] [place] [facility] [address] [id number] [place] [address]- 8874 Oct, [facility] [place] [facility] [address] [id number] [place] [address]- 9999 Oct, [facility] [place] [facility] [address] [id number] [place] [address]- 8769 Sep, [facility] [place] [facility] [address] [id number] [place] [address]- 8402 Sep, [facility] [place] [facility] [address] [id number] [place] [address]- 2531 Sep, [facility] [place] [facility] [address] [id number] [place] [address]- 2494 Sep, [facility] [place] [facility] [address] [id number] [place] [address]- 3857 Sep, [facility] [place] [facility] [address] [id number] [place] [address]- 8247 Sep, [facility] [place] [facility] [address] [id number] [place] [address]- 7621 Sep, [facility] [place] [facility] [address] [id number] [place] [address]- 7506 Sep, [facility] [place] [facility] [address] [id number] [place] [address]- 2857 Sep, [facility] [place] [facility] [address] [id number] [place] [address]- 6180 Sep, [facility] [place] [facility] [address] [id number] [place] [address]- 2103 Sep, [facility] [place] [facility] [address] [id number] [place] [address]- 6141 Sep, [facility] [place] [facility] [address] [id number] [place] 5958 Sep, [facility] [place] [facility] [address] [id number], [place] [address]- 2546 Sep, [facility] [id number], [place] [address]- 2546 Feb, [facility] [address], [place] [address]- 2546 Feb, [facility] [id number], [place] [address]- 2546 July, [facility] [address] [place] [address] 41186- 2546 Apr, [facility] [id number], [place] [address]- 2546 Apr, [facility] [id number], [place] [address]- 2546 Apr, [facility] [id number], [place] [address]- 2546 Apr, IMMUNIZATIONS No Known Immunizations SOCIAL HISTORY Never Assessed REASON FOR VISIT Letter PLAN OF CARE VITAL SIGNS MEDICATIONS Unknown [...] Intubation with ET tube and transferred to [facility] Trach placed 03/2017 Surgical History Defibrillation placed 2017 Surgical History Trach/PEG Tube placed and removed [facility] after Intubation 2017 Hospitalization History ICU for Afib 09/2013 Hospitalization History Admitted to [facility] Transferred to Cardiac ICU/ Rehab 03/2017 Hospitalization History Coded, Defribrillated and ET tube placed for ventillation and transferred to [facility] 03/2017
--- OUTSIDE RECORDS SUMMARY | 2018-05-09 18:03 | XMS REPORT ---
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 Active 994076734 Problem Cardiomyopathy I42.9 Active 80188797 Problem 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 I48.2 Active 419734474 Problem Post-cardiac injury syndrome I24.1 Active 49973902 Problem Anoxic brain injury G93.1 Active 815235128 Problem Hypertension I10 Active 36562887 Problem Adjustment disorder with depressed mood F43.21 Active 72139289 Problem Cardiac defibrillator in place Z95.810 Active 965209469 Problem Afib I48.91 Active 59625243 Problem Non-ischemic cardiomyopathy I42.8 Active 31210677 Problem History of cardiac arrest Z86.74 Active 329457143 Problem Current moderate episode of major depressive disorder without prior episode F32.1 Active 83840234 ALLERGIES No Information ENCOUNTERS Encounter Location Date Diagnosis [facility] [id number] [place] [address] 69494- 0871 Sep, [facility] [id number] [place] [address] 75581- 6832 Aug, [facility] [id number] [place] [address] 81188- 1927 July, [facility] [id number] [place] [address] 10418- 9936 July, [facility] [id number] [place] [address] 05641- 9570 Jun, Adjustment disorder with depressed mood F43.21 [facility] [address] [place] [address]- 4013 04 Jun, 2017 [facility] [address] [address]- 7794 Jun, [facility] [id number] [place] [address] 14317- 1964 May, [facility] [id number] [place] [address] 07681- 5551 May, [facility] [id number] [place] [address] 51980- 9884 16 May, 2017 [facility] [id number] [place] [address] 24638- 4206 May, [facility] [id number] [place] [address] 72950- 7140 May, History of cardiac arrest Z86.74 ; Cardiac defibrillator in place Z95.810 ; 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 I48.2 and Current moderate episode of major depressive disorder without prior episode F32.1 [facility] [id number] [place] [address] 56821- 7030 May, [facility] [id number] [place] [address] 04254- 7334 Mar, 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 [facility] [id number] [place] [address] 18163- 4145 Mar, [facility] [id number] [place] [address] 19544- 0824 Mar, penitentiary (current) use of anticoagulants Z79.01 [facility] [id number] [place] [address] 94771- 4849 Feb, Afib I48.91 [facility] [id number] [place] [address] 55274- 3855 Feb, 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 [facility] [id number] [place] [address] 18855 -3874 Jan, Other viral agents as the cause of diseases classified elsewhere B97.89 ; Acute upper respiratory infection, unspecified J06.9 and Body aches R52 [facility] [id number] [place] [address] 75491- 3557 Jan, Afib I48.91 [facility] [id number] [place] [address] 74236- 0790 Jan, Afib I48.91 and 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 [facility] [id number] [place] [address] 51661- 7976 Dec, Afib I48.91 [facility] [id number] [place] [address] 49664- 2978 Dec, 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 I48.2 [facility] [id number] [place] [address] 59785- 2898 Nov, Hypertension I10 [facility] [id number] [place] [address] 53298- 6466 Oct, 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 I48.2 [facility] [id number] [place] [address] 14167- 6415 Oct, penitentiary (current) use of anticoagulants Z79.01 [facility] [id number] [place] [address] 66045- 1661 Oct, 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 I48.2 [facility] [id number] [place] [address] 93854- 3949 Oct, 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 I48.2 [facility] [id number] [place] [address] 19295- 5090 Sep, penitentiary (current) use of anticoagulants Z79.01 ; Hypertension I10 ; Cardiomyopathy I42.9 and Afib I48.91 [facility] [id number] [place] [address] 63043- 8213 Sep, penitentiary (current) use of anticoagulants Z79.01 ; Hypertension I10 ; Cardiomyopathy I42.9 and Afib I48.91 [facility] [id number] [place] [address] 27376- 4146 Aug, penitentiary (current) use of anticoagulants Z79.01 [facility] [id number] [place] [address] 07974- 0236 Aug, 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 [facility] [id number] [place] [address] 37945 2546 Aug, 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 [facility] [id number] [place] [address] 70187- 8408 July, penitentiary (current) use of anticoagulants Z79.01 [facility] [id number] [place] [address] 14413- 2904 Jun, penitentiary (current) use of anticoagulants Z79.01 [facility] [id number] [place] [address] 30153- 7089 Jun, 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 [facility] [id number] [place] [address] 36197- 5166 May, 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 I48.2 [facility] [id number] [place] [address] 91799 2546 May, [facility] [id number] [place] [address] 74099 2546 May, penitentiary (current) use of anticoagulants Z79.01 [facility] [id number] [place] [address] 45523 2546 May, 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 [facility] [address], [place] [address] 2546 May, Afib I48.91 ; Non-ischemic cardiomyopathy I42.8 ; Hypotension, unspecified hypotension type I95.9 and Heart palpitations R00.2 [facility] [id number] [place] [address] 31785- 7166 16 Apr, 2016 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 [facility] [id number] [place] [address] 33389 2546 Apr, 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 [facility] [id number] [place] [address] 50214 2546 Mar, 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 [facility] [id number] [place] [address] 13422 2546 Feb, 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 [facility] [id number] [place] [address] 86333 2546 Feb, 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 [facility] [id number] [place] [address] 39901 2546 Jan, penitentiary (current) use of anticoagulants Z79.01 [facility] [id number] [place] [address] 99319 2546 Jan, 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 [facility] [id number] [place] [address] 16991 2546 Dec, 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 [facility] [id number] [place] [address] 90973 2546 Dec, penitentiary (current) use of anticoagulants Z79.01 [facility] [id number] [place] [address] 45494 2546 Oct, penitentiary (current) use of anticoagulants Z79.01 [facility] [address] [place] [address] 08840 2546 Oct, penitentiary (current) use of anticoagulants Z79.01 [facility] [id number] [place] [address] 05022- 4177 Oct, Afib I48.91 ; Cardiomyopathy I42.9 ; Palpitations R00.2 and Non-rheumatic tricuspid valve insufficiency I36.1 [facility] [id number] [place] [address] 94205- 5148 Sep, 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 I48.2 ; penitentiary (current) use of anticoagulants Z79.01 ; Cardiomyopathy I42.9 and Hypertension I10 [facility] [id number] [place] [address] 84598 -0318 Aug, Allergic rhinitis, unspecified allergic rhinitis type J30.9 [facility] [id number] [place] [address] 31074- 7563 Aug, 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 [facility] [id number] [place] [address] 64205- 1481 Jun, penitentiary (current) use of anticoagulants Z79.01 [facility] [id number] [place] [address] 29247- 4026 Jun, penitentiary (current) use of anticoagulants Z79.01 [facility] [id number] [place] [address] 36458- 9447 Jun, penitentiary (current) use of anticoagulants Z79.01 [facility] [id number] [place] [address] 39834- 9487 Jun, [facility] [id number] [place] [address] 96134- 9675 May, Encounter for long-term (current) use of anticoagulants V58.61 [facility] [id number] [place] [address] 40287- 1949 May, Encounter for long-term (current) use of anticoagulants V58.61 [facility] [address] 35954- 8088 May, Encounter for long-term (current) use of anticoagulants V58.61 [facility] [address] [place] [address] 10915- 4363 Apr, Encounter for long-term (current) use of anticoagulants V58.61 [facility] [id number] [place] [address] 99919- 2131 Apr, penitentiary (current) use of anticoagulants Z79.01 [facility] [id number] [place] [address] 94944- 7461 Apr, Afib I48.91 ; Hypertension I10 ; Cardiomyopathy I42.9 and Palpitations R00.2 [facility] [id number] [place] [address] 96252- 8827 Mar, 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 [facility] [id number] [place] [address] 26288- 3599 Mar, Encounter for long-term (current) use of anticoagulants V58.61 [facility] [id number] [place] [address] 92443- 5127 Mar, Encounter for long-term (current) use of anticoagulants V58.61 [facility] [id number] [place] [address] 09884- 3814 Mar, penitentiary (current) use of anticoagulants Z79.01 and Encounter for therapeutic drug level monitoring Z51.81 [facility] [address] [place] [address] 49633- 1331 Feb, 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 and Encounter for therapeutic drug level monitoring Z51.81 [facility] [id number] [place] [address] 33695- 2788 Feb, Encounter for long-term (current) use of anticoagulants V58.61 [facility] [id number] [place] [address] 33981- 1511 Feb, [facility] [address], [place] [address]- 5256 Feb, Encounter for long-term (current) use of anticoagulants V58.61 [facility] [address] [place] [address] 283387- 2976 Feb, Encounter for therapeutic drug level monitoring Z51.81 [facility] [id number] [place] [address] 75203- 6708 Jan, [facility] [id number] [place] [address] 956510- 0108 Dec, Encounter for long-term (current) use of anticoagulants V58.61 and Atrial fibrillation 427.31 [facility] [id number] [place] [address] 596673- 1750 Dec, Chest wall muscle strain S29.011A [facility] [id number] [place] [address] 16439- 8036 Nov, Encounter for long-term (current) use of anticoagulants V58.61 and Atrial fibrillation 427.31 [facility] [id number] [place] [address] 00725- 5047 Nov, Atrial fibrillation 427.31 [facility] [address] [place] [address] 59176- 0990 Nov, [facility] [address] [place] [address] 90920- 3476 Nov, Atrial fibrillation 427.31 [facility] [address] [place] [address] 27827- 0390 Nov, Atrial fibrillation 427.31 [facility] [id number] [place] [address] 06423- 4081 Oct, Encounter for long-term (current) use of anticoagulants V58.61 [facility] [address] [place] [address] 02545- 2547 Sep, Encounter for long-term (current) use of anticoagulants V58.61 [facility] [address], [place] [address]- 1049 Aug, Encounter for long-term (current) use of anticoagulants V58.61 [facility] [id number] [address]- 5146 July, [facility] [address], [place] [address]- 7219 July, [facility] [id number] [address]- 1334 July, [facility] [id number] [place] [address] 49892- 0593 Jun, [facility] [address], [place] [address]- 1576 Jun, [facility] [address], [place] [address]- 1676 May, [facility] [id number], [place] [address]- 5248 May, [facility] [address] 9838 May, [facility] [address] 3819 Apr, [facility] [address], [place] [address]- 4226 Apr, [facility] [id number], [place] [address]- 6666 Apr, [facility] [address], [place] [address]- 9756 Apr, [facility] [id number], [place] [address]- 5796 Apr, [facility] [address], [place] [address]- 7443 Apr, [facility] [place] [facility] [address] [id number] [place] [address]- 3291 Apr, [facility] [place] [facility] [address] [id number] [place] [address]- 0456 Mar, [facility] [place] [facility] [address] [facility] [id number] [place] [address]- 6520 Mar, [facility] [place] [facility] [address] [id number] [place] [address]- 1712 Mar, [facility] [place] [facility] [address] [id number] [place] [address]- 8670 Mar, [facility] [place] [facility] [address] [id number] [place] [address]- 4918 Mar, [facility] [place] [facility] [address] [id number] [place] [address]- 7697 Mar, [facility] [place] [facility] [address] [id number], [place] [address]- 8981 Mar, [facility] [place] [facility] [address] [id number], [place] [address]- 7656 Mar, [facility] [place] [facility] [address] [id number] [place] [address]- 5116 Feb, [facility] [place] [facility] [address] [id number], [place] [address]- 1744 Feb, [facility] [place] [facility] [address] [id number], [place] [address]- 0249 Feb, [facility] [place] [facility] [address] [id number] [place] [address]- 2151 Feb, [facility] [place] [facility] [address] [id number] [place] [address]- 3780 Feb, [facility] [place] [facility] [address] [id number] [place] [address]- 2445 Feb, [facility] [place] [facility] [address] [id number] [place] [address]- 4076 Jan, [facility] [place] [facility] [address] [id number] [place] [address]- 1714 Jan, [facility] [place] [facility] [address] [id number] [place] [address]- 4724 Jan, [facility] [place] [facility] [address] [id number] [place] [address]- 4423 Jan, [facility] [place] [facility] [address] [id number] [place] [address]- 8960 Jan, [facility] [place] [facility] [address] [id number] [place] [address]- 5957 Jan, [facility] [place] [facility] [address] [id number] [place] [address]- 6660 Dec, [facility] [place] [facility] [address] [id number] [place] [address]- 8995 Dec, [facility] [place] [facility] [address] [id number] [place] [address]- 5838 Dec, [facility] [place] [facility] [address] [id number] [place] [address]- 2917 Dec, [facility] [place] [facility] [address] [id number] [place] [address]- 2422 Nov, [facility] [place] [facility] [address] [id number] [place] [address]- 2209 Nov, [facility] [place] [facility] [address] [id number] [place] [address]- 9929 Oct, [facility] [place] [facility] [address] [id number] [place] [address]- 2565 Oct, [facility] [place] [facility] [address] [id number] [place] [address]- 0452 Oct, [facility] [place] [facility] [address] [id number] [place] [address]- 6461 Oct, [facility] [place] [facility] [address] [id number] [place] [address]- 2800 Oct, [facility] [place] [facility] [address] [id number] [place] [address]- 0525 Oct, [facility] [place] [facility] [address] [id number] [place] [address]- 9489 Sep, [facility] [place] [facility] [address] [id number] [place] [address]- 3722 Sep, [facility] [place] [facility] [address] [id number] [place] [address]- 8302 Sep, [facility] [place] [facility] [address] [id number] [place] [address]- 8245 Sep, [facility] [place] [facility] [address] [id number] [place] [address]- 7672 Sep, [facility] [place] [facility] [address] [id number] [place] [address]- 7049 Sep, [facility] [place] [facility] [address] [id number] [place] [address]- 5312 Sep, [facility] [place] [facility] [address] [id number] [place] [address]- 6393 Sep, [facility] [place] [facility] [address] [id number] [place] [address]- 8446 Sep, [facility] [place] [facility] [address] [id number] [place] [address]- 8650 Sep, [facility] [place] [facility] [address] [id number] [place] [address]- 2951 Sep, [facility] [place] [facility] [address] [id number] [place] [address]- 7740 Sep, [facility] [place] [facility] [address] [id number] [place] 3187 Sep, [facility] [place] [facility] [address] [id number], [place] [address]- 2546 Sep, [facility] [id number], [place] [address]- 2546 Feb, [facility] [address], [place] [address]- 2546 Feb, [facility] [address], [place] [address]- 2546 July, [facility] [id number] [place] [address] 95816- 2546 Apr, [facility] [address], [place] [address]- 2546 Apr, [facility] [address], [place] [address]- 2546 Apr, [facility] [id number], [place] [address]- 2546 Apr, IMMUNIZATIONS No Known Immunizations SOCIAL HISTORY Never Assessed REASON FOR VISIT Refill request PLAN OF CARE VITAL SIGNS MEDICATIONS Medication Instructions Dosage Frequency Start Date End Date Duration Status Amiodarone HCl 200 mg Orally Once a day 1 tablet 24h 30 days Active RESULTS No Results PROCEDURES No Known procedures INSTRUCTIONS MEDICATIONS ADMINISTERED No Known Medications MEDICAL (GENERAL) HISTORY Type Description Date Medical History Atrial fibrillation Medical History hx of c. diff Medical History Stress test performed; EF 25% Last test 2015 was at 60% Medical History Palpitations Medical History Cardiac Arrest with CPR and Intubation with ET tube and transferred to [facility] Trach placed 03/2017 Surgical History Defibrillation placed 2017 Surgical History Trach/PEG Tube placed and removed [facility] after Intubation 2018 Hospitalization History [facility] for Afib 09/2013 Hospitalization History Admitted to Transferred to Cardiac ICU/[facility] 03/2017 Hospitalization History Coded, Defribrillated and ET tube placed for ventillation and transferred to [facility] 03/2017
--- OUTSIDE RECORDS SUMMARY | 2018-05-09 18:04 | XMS REPORT ---
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 481721593 Problem Cardiomyopathy I42.9 Active 51839555 Problem 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 I48.2 Active 884465601 Problem Post-cardiac injury syndrome I24.1 Active 14673049 Problem Anoxic brain injury G93.1 Active 239651582 Problem Hypertension I10 Active 70534089 Problem Adjustment disorder with depressed mood F43.21 Active 31460747 Problem Cardiac defibrillator in place Z95.810 Active 761124254 Problem Afib I48.91 Active 09442186 Problem Non-ischemic cardiomyopathy I42.8 Active 05509497 Problem History of cardiac arrest Z86.74 Active 364916451 Problem Current moderate episode of major depressive disorder without prior episode F32.1 Active 44960802 ALLERGIES No Information ENCOUNTERS Encounter Location Date Diagnosis [facility] [id number] [place] [address] 60067- 2481 Sep, [facility] [id number] [place] [address] 92600- 5211 Aug, [facility] [id number] [place] [address] 87800- 3558 July, [facility] [id number] [place] [address] 58966- 8138 July, [facility] [id number] [place] [address] 29678- 5679 Jun, Adjustment disorder with depressed mood F43.21 [facility] [address] [place] [address]- 6180 04 Jun, 2017 [facility] [address] [address]- 5151 Jun, [facility] [id number] [place] [address] 37593- 7762 May, [facility] [id number] [place] [address] 82470- 9885 May, [facility] [id number] [place] [address] 86011- 2928 16 May, 2017 [facility] [id number] [place] [address] 05116- 8553 May, [facility] [id number] [place] [address] 21158- 4894 May, History of cardiac arrest Z86.74 ; Cardiac defibrillator in place Z95.810 ; 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 I48.2 and Current moderate episode of major depressive disorder without prior episode F32.1 [facility] [id number] [place] [address] 93819- 6485 May, [facility] [id number] [place] [address] 12800- 7183 Mar, 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 [facility] [id number] [place] [address] 13641- 6761 Mar, [facility] [id number] [place] [address] 23574- 0758 Mar, [facility] (current) use of anticoagulants Z79.01 [facility] [id number] [place] [address] 74507- 0358 Feb, Afib I48.91 [facility] [id number] [place] [address] 59304- 2233 Feb, 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 [facility] [id number] [place] [address] 03225 -6292 Jan, Other viral agents as the cause of diseases classified elsewhere B97.89 ; Acute upper respiratory infection, unspecified J06.9 and Body aches R52 [facility] [id number] [place] [address] 89497- 7808 Jan, Afib I48.91 [facility] [id number] [place] [address] 01693- 9714 Jan, Afib I48.91 and 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 [facility] [id number] [place] [address] 74748- 2068 Dec, Afib I48.91 [facility] [id number] [place] [address] 03080- 0640 Dec, 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 I48.2 [facility] [id number] [place] [address] 06218- 7383 Nov, Hypertension I10 [facility] [id number] [place] [address] 94867- 0372 Oct, 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 I48.2 [facility] [id number] [place] [address] 75453- 5625 Oct, [facility] (current) use of anticoagulants Z79.01 [facility] [id number] [place] [address] 75050- 6722 Oct, 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 I48.2 [facility] [id number] [place] [address] 53035- 2053 Oct, 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 I48.2 [facility] [id number] [place] [address] 12997- 5757 Sep, [facility] (current) use of anticoagulants Z79.01 ; Hypertension I10 ; Cardiomyopathy I42.9 and Afib I48.91 [facility] [id number] [place] [address] 70648- 1367 Sep, [facility] (current) use of anticoagulants Z79.01 ; Hypertension I10 ; Cardiomyopathy I42.9 and Afib I48.91 [facility] [id number] [place] [address] 43823- 8216 Aug, [facility] (current) use of anticoagulants Z79.01 [facility] [id number] [place] [address] 05919- 1496 Aug, 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 [facility] [id number] [place] [address] 27193 2546 Aug, 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 [facility] [id number] [place] [address] 46408- 1825 July, [facility] (current) use of anticoagulants Z79.01 [facility] [id number] [place] [address] 66143- 3225 Jun, [facility] (current) use of anticoagulants Z79.01 [facility] [id number] [place] [address] 65220- 6314 Jun, 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 [facility] [id number] [place] [address] 31094- 0986 May, 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 I48.2 [facility] [id number] [place] [address] 32034 2546 May, [facility] [id number] [place] [address] 16989 2546 May, [facility] (current) use of anticoagulants Z79.01 [facility] [id number] [place] [address] 58139 2546 May, 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 [facility] [address], [place] [address] 2546 May, Afib I48.91 ; Non-ischemic cardiomyopathy I42.8 ; Hypotension, unspecified hypotension type I95.9 and Heart palpitations R00.2 [facility] [id number] [place] [address] 54970- 5286 16 Apr, 2016 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 [facility] [id number] [place] [address] 58476 2546 Apr, 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 [facility] [id number] [place] [address] 77019 2546 Mar, 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 [facility] [id number] [place] [address] 45722 2546 Feb, 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 [facility] [id number] [place] [address] 41427 2546 Feb, 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 [facility] [id number] [place] [address] 60661 2546 Jan, [facility] (current) use of anticoagulants Z79.01 [facility] [id number] [place] [address] 71444 2546 Jan, 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 [facility] [id number] [place] [address] 42119 2546 Dec, 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 [facility] [id number] [place] [address] 31840 2546 Dec, [facility] (current) use of anticoagulants Z79.01 [facility] [id number] [place] [address] 10608 2546 Oct, [facility] (current) use of anticoagulants Z79.01 [facility] [id number] [place] [address] 92274 2546 Oct, [facility] (current) use of anticoagulants Z79.01 [facility] [id number] [place] [address] 12077- 9024 Oct, Afib I48.91 ; Cardiomyopathy I42.9 ; Palpitations R00.2 and Non-rheumatic tricuspid valve insufficiency I36.1 [facility] [id number] [place] [address] 03226- 3494 Sep, 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 I48.2 ; [facility] (current) use of anticoagulants Z79.01 ; Cardiomyopathy I42.9 and Hypertension I10 [facility] [id number] [place] [address] 02024 -7726 Aug, Allergic rhinitis, unspecified allergic rhinitis type J30.9 [facility] [id number] [place] [address] 20038- 6346 Aug, 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 [facility] [id number] [place] [address] 49795- 3495 Jun, [facility] (current) use of anticoagulants Z79.01 [facility] [id number] [place] [address] 00866- 9078 Jun, [facility] (current) use of anticoagulants Z79.01 [facility] [id number] [place] [address] 01337- 8326 Jun, [facility] (current) use of anticoagulants Z79.01 [facility] [id number] [place] [address] 75095- 6486 Jun, [facility] [id number] [place] [address] 16447- 1467 May, Encounter for long-term (current) use of anticoagulants V58.61 [facility] [id number] [place] [address] 38919- 4626 May, Encounter for long-term (current) use of anticoagulants V58.61 [facility] [address] 47751- 5132 May, Encounter for long-term (current) use of anticoagulants V58.61 [facility] [address] [place] [address] 31737- 5133 Apr, Encounter for long-term (current) use of anticoagulants V58.61 [facility] [id number] [place] [address] 01264- 0916 Apr, [facility] (current) use of anticoagulants Z79.01 [facility] [id number] [place] [address] 46950- 8677 Apr, Afib I48.91 ; Hypertension I10 ; Cardiomyopathy I42.9 and Palpitations R00.2 [facility] [id number] [place] [address] 32645- 7447 Mar, 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 [facility] [id number] [place] [address] 64889- 5215 Mar, Encounter for long-term (current) use of anticoagulants V58.61 [facility] [id number] [place] [address] 35848- 6833 Mar, Encounter for long-term (current) use of anticoagulants V58.61 [facility] [id number] [place] [address] 00323- 0640 Mar, [facility] (current) use of anticoagulants Z79.01 and Encounter for therapeutic drug level monitoring Z51.81 [facility] [address] [place] [address] 82716- 5918 Feb, 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 and Encounter for therapeutic drug level monitoring Z51.81 [facility] [id number] [place] [address] 41698- 0201 Feb, Encounter for long-term (current) use of anticoagulants V58.61 [facility] [id number] [place] [address] 80721- 6613 Feb, [facility] [address] [address]- 0705 Feb, Encounter for long-term (current) use of anticoagulants V58.61 [facility] [address] [place] [address] 075430- 0216 Feb, Encounter for therapeutic drug level monitoring Z51.81 [facility] [id number] [place] [address] 90674- 2077 Jan, [facility] [id number] [place] [address] 653837- 9081 Dec, Encounter for long-term (current) use of anticoagulants V58.61 and Atrial fibrillation 427.31 [facility] [id number] [place] [address] 955466- 7718 Dec, Chest wall muscle strain S29.011A [facility] [id number] [place] [address] 32014- 3892 Nov, Encounter for long-term (current) use of anticoagulants V58.61 and Atrial fibrillation 427.31 [facility] [id number] [place] [address] 23343- 6434 Nov, Atrial fibrillation 427.31 [facility] [address] [place] [address] 89942- 1040 Nov, [facility] [address] [place] [address] 80482- 3509 Nov, Atrial fibrillation 427.31 [facility] [address] [place] [address] 06497- 8544 Nov, Atrial fibrillation 427.31 [facility] [id number] [place] [address] 71201- 0026 Oct, Encounter for long-term (current) use of anticoagulants V58.61 [facility] [address] [place] [address] 66216- 2548 Sep, Encounter for long-term (current) use of anticoagulants V58.61 [facility] [address], [place] [address]- 5205 Aug, Encounter for long-term (current) use of anticoagulants V58.61 [facility] [id number] [address]- 1846 July, [facility] [address], [place] [address]- 6573 July, [facility] [id number] [address]- 3696 July, [facility] [id number] [place] [address] 50084- 2691 Jun, [facility] [address], [place] [address]- 9418 Jun, [facility] [address], [place] [address]- 9613 May, [facility] [id number] [address]- 6016 May, [facility] [address] 4402 May, [facility] [address] 8148 Apr, [facility] [address], [place] [address]- 2926 Apr, [facility] [id number] [address]- 2856 Apr, [facility] [address], [place] [address]- 9676 Apr, [facility] [id number] [address]- 4196 Apr, [facility] [address], [place] [address]- 5099 Apr, [facility] [place] [facility] [address] [id number] [place] [address]- 6279 Apr, [facility] [place] [facility] [address] [id number] [place] [address]- 9095 Mar, [facility] [place] [facility] [address] [facility] [id number] [place] [address]- 2079 Mar, [facility] [place] [facility] [address] [id number] [place] [address]- 3626 Mar, [facility] [place] [facility] [address] [id number] [place] [address]- 4290 Mar, [facility] [place] [facility] [address] [id number] [place] [address]- 2424 Mar, [facility] [place] [facility] [address] [id number] [place] [address]- 6539 Mar, [facility] [place] [facility] [address] [id number], [place] [address]- 3882 Mar, [facility] [place] [facility] [address] [id number], [place] [address]- 8532 Mar, [facility] [place] [facility] [address] [id number] [place] [address]- 4703 Feb, [facility] [place] [facility] [address] [id number], [place] [address]- 1225 Feb, [facility] [place] [facility] [address] [id number], [place] [address]- 6756 Feb, [facility] [place] [facility] [address] [id number] [place] [address]- 0460 Feb, [facility] [place] [facility] [address] [id number] [place] [address]- 9184 Feb, [facility] [place] [facility] [address] [id number] [place] [address]- 6495 Feb, [facility] [place] [facility] [address] [id number] [place] [address]- 6287 Jan, [facility] [place] [facility] [address] [id number] [place] [address]- 5074 Jan, [facility] [place] [facility] [address] [id number] [place] [address]- 6233 Jan, [facility] [place] [facility] [address] [id number] [place] [address]- 9461 Jan, [facility] [place] [facility] [address] [id number] [place] [address]- 9511 Jan, [facility] [place] [facility] [address] [id number] [place] [address]- 4648 Jan, [facility] [place] [facility] [address] [id number] [place] [address]- 8155 Dec, [facility] [place] [facility] [address] [id number] [place] [address]- 0251 Dec, [facility] [place] [facility] [address] [id number] [place] [address]- 7597 Dec, [facility] [place] [facility] [address] [id number] [place] [address]- 9600 Dec, [facility] [place] [facility] [address] [id number] [place] [address]- 6664 Nov, [facility] [place] [facility] [address] [id number] [place] [address]- 2160 Nov, [facility] [place] [facility] [address] [id number] [place] [address]- 0958 Oct, [facility] [place] [facility] [address] [id number] [place] [address]- 3291 Oct, [facility] [place] [facility] [address] [id number] [place] [address]- 7617 Oct, [facility] [place] [facility] [address] [id number] [place] [address]- 5323 Oct, [facility] [place] [facility] [address] [id number] [place] [address]- 2992 Oct, [facility] [place] [facility] [address] [id number] [place] [address]- 7593 Oct, [facility] [place] [facility] [address] [id number] [place] [address]- 1291 Sep, [facility] [place] [facility] [address] [id number] [place] [address]- 3989 Sep, [facility] [place] [facility] [address] [id number] [place] [address]- 1511 Sep, [facility] [place] [facility] [address] [id number] [place] [address]- 0315 Sep, [facility] [place] [facility] [address] [id number] [place] [address]- 8534 Sep, [facility] [place] [facility] [address] [id number] [place] [address]- 9591 Sep, [facility] [place] [facility] [address] [id number] [place] [address]- 2988 Sep, [facility] [place] [facility] [address] [id number] [place] [address]- 6350 Sep, [facility] [place] [facility] [address] [id number] [place] [address]- 3511 Sep, [facility] [place] [facility] [address] [id number] [place] [address]- 8200 Sep, [facility] [place] [facility] [address] [id number] [place] [address]- 3215 Sep, [facility] [place] [facility] [address] [id number] [place] [address]- 0622 Sep, [facility] [place] [facility] [address] [id number] [place] 2741 Sep, [facility] [place] [facility] [address] [id number], [place] [address]- 2546 Sep, [facility] [id number] [address]- 2546 Feb, [facility] [id number], [place] [address]- 2546 Feb, [facility] [id number], [place] [address]- 2546 July, [facility] [id number], [place] [address]- 2546 Apr, [facility] [id number], [place] [address] 2546 Apr, [facility] [id number], [place] [address]- 2546 Apr, [facility] [id number], [place] [address]- 2546 Apr, IMMUNIZATIONS No Known Immunizations SOCIAL HISTORY Never Assessed REASON FOR VISIT Requests return call / paperwork questions PLAN OF CARE VITAL SIGNS MEDICATIONS Unknown [...] Intubation with ET tube and transferred to [facility] Trach placed 03/2017 Surgical History Defibrillation placed 2017 Surgical History Trach/PEG Tube placed and removed [facility] after Intubation 2018 Hospitalization History ICU for Afib 09/2013 Hospitalization History Admitted to Transferred to Cardiac ICU/ Rehab 03/2017 Hospitalization History Coded, Defribrillated and ET tube placed for ventillation and transferred to [facility] 03/2017
--- OUTSIDE RECORDS SUMMARY | 2018-05-09 18:04 | XMS REPORT ---
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 407976938 Problem Cardiomyopathy I42.9 Active 51826558 Problem 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 I48.2 Active 658060104 Problem Post-cardiac injury syndrome I24.1 Active 68498194 Problem Anoxic brain injury G93.1 Active 530077314 Problem Hypertension I10 Active 23949791 Problem Adjustment disorder with depressed mood F43.21 Active 78747836 Problem Cardiac defibrillator in place Z95.810 Active 295601745 Problem Afib I48.91 Active 31680705 Problem Non-ischemic cardiomyopathy I42.8 Active 19584071 Problem History of cardiac arrest Z86.74 Active 320529699 Problem Current moderate episode of major depressive disorder without prior episode F32.1 Active 65455912 ALLERGIES No Information ENCOUNTERS Encounter Location Date Diagnosis [facility] [id number] [place] [address] 26023- 9215 Sep, [facility] [id number] [place] [address] 46666- 6899 Aug, [facility] [id number] [place] [address] 20853- 7288 July, [facility] [id number] [place] [address] 73369- 6226 July, [facility] [id number] [place] [address] 62225- 4034 Jun, Adjustment disorder with depressed mood F43.21 [facility] [address] [place] [address]- 0190 04 Jun, 2017 [facility] [address] [address] 9909 Jun, [facility] [id number] [place] [address] 93659- 9193 May, [facility] [id number] [place] [address] 91281- 4944 May, [facility] [id number] [place] [address] 69810- 9389 16 May, 2017 [facility] [id number] [place] [address] 12920- 4800 May, [facility] [id number] [place] [address] 07342- 7129 May, History of cardiac arrest Z86.74 ; Cardiac defibrillator in place Z95.810 ; 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 I48.2 and Current moderate episode of major depressive disorder without prior episode F32.1 [facility] [id number] [place] [address] 75154- 4676 May, [facility] [id number] [place] [address] 02480- 0088 Mar, 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 [facility] [id number] [place] [address] 33217- 4700 Mar, [facility] [id number] [place] [address] 39339- 6079 Mar, group home (current) use of anticoagulants Z79.01 [facility] [id number] [place] [address] 87741- 6933 Feb, Afib I48.91 [facility] [id number] [place] [address] 23389- 9275 Feb, 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 [facility] [id number] [place] [address] 25451 -4040 Jan, Other viral agents as the cause of diseases classified elsewhere B97.89 ; Acute upper respiratory infection, unspecified J06.9 and Body aches R52 [facility] [id number] [place] [address] 11434- 8104 Jan, Afib I48.91 [facility] [id number] [place] [address] 88704- 4459 Jan, Afib I48.91 and 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 [facility] [id number] [place] [address] 07248- 2269 Dec, Afib I48.91 [facility] [id number] [place] [address] 51940- 5068 Dec, 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 I48.2 [facility] [id number] [place] [address] 04406- 7444 Nov, Hypertension I10 [facility] [id number] [place] [address] 10204- 3213 Oct, 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 I48.2 [facility] [id number] [place] [address] 68377- 3210 Oct, group home (current) use of anticoagulants Z79.01 [facility] [id number] [place] [address] 45369- 8203 Oct, 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 I48.2 [facility] [id number] [place] [address] 47936- 1509 Oct, 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 I48.2 [facility] [id number] [place] [address] 81175- 3156 Sep, group home (current) use of anticoagulants Z79.01 ; Hypertension I10 ; Cardiomyopathy I42.9 and Afib I48.91 [facility] [id number] [place] [address] 82008- 9688 Sep, group home (current) use of anticoagulants Z79.01 ; Hypertension I10 ; Cardiomyopathy I42.9 and Afib I48.91 [facility] [id number] [place] [address] 87650- 0346 Aug, group home (current) use of anticoagulants Z79.01 [facility] [id number] [place] [address] 13955- 8546 Aug, 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 [facility] [id number] [place] [address] 30903 2546 Aug, 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 [facility] [id number] [place] [address] 92067- 7725 July, group home (current) use of anticoagulants Z79.01 [facility] [id number] [place] [address] 78449- 1326 Jun, group home (current) use of anticoagulants Z79.01 [facility] [id number] [place] [address] 60857- 7386 Jun, 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 [facility] [id number] [place] [address] 47972- 4736 May, 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 I48.2 [facility] [id number] [place] [address] 45713 2546 May, [facility] [id number] [place] [address] 69731 2546 May, group home (current) use of anticoagulants Z79.01 [facility] [id number] [place] [address] 58402 2546 May, 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 [facility] [address], [place] [address] 2546 May, Afib I48.91 ; Non-ischemic cardiomyopathy I42.8 ; Hypotension, unspecified hypotension type I95.9 and Heart palpitations R00.2 [facility] [id number] [place] [address] 98205- 2456 16 Apr, 2016 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 [facility] [id number] [place] [address] 86810 2546 Apr, 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 [facility] [id number] [place] [address] 13119 2546 Mar, 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 [facility] [id number] [place] [address] 24160 2546 Feb, 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 [facility] [id number] [place] [address] 33005 2546 Feb, 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 [facility] [id number] [place] [address] 31344 2546 Jan, group home (current) use of anticoagulants Z79.01 [facility] [id number] [place] [address] 73289 2546 Jan, 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 [facility] [id number] [place] [address] 70331 2546 Dec, 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 [facility] [id number] [place] [address] 73537 2546 Dec, group home (current) use of anticoagulants Z79.01 [facility] [id number] [place] [address] 03978 2546 Oct, group home (current) use of anticoagulants Z79.01 [facility] [id number] [place] [address] 24190 2546 Oct, group home (current) use of anticoagulants Z79.01 [facility] [id number] [place] [address] 75118- 5512 Oct, Afib I48.91 ; Cardiomyopathy I42.9 ; Palpitations R00.2 and Non-rheumatic tricuspid valve insufficiency I36.1 [facility] [id number] [place] [address] 64624- 2071 Sep, 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 I48.2 ; group home (current) use of anticoagulants Z79.01 ; Cardiomyopathy I42.9 and Hypertension I10 [facility] [id number] [place] [address] 85542 -2359 Aug, Allergic rhinitis, unspecified allergic rhinitis type J30.9 [facility] [id number] [place] [address] 60607- 8431 Aug, 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 [facility] [id number] [place] [address] 77622- 8107 Jun, group home (current) use of anticoagulants Z79.01 [facility] [id number] [place] [address] 07000- 1416 Jun, group home (current) use of anticoagulants Z79.01 [facility] [id number] [place] [address] 01831- 7361 Jun, group home (current) use of anticoagulants Z79.01 [facility] [id number] [place] [address] 62496- 4167 Jun, [facility] [id number] [place] [address] 73568- 0324 May, Encounter for long-term (current) use of anticoagulants V58.61 [facility] [id number] [place] [address] 45913- 2364 May, Encounter for long-term (current) use of anticoagulants V58.61 [facility] [address] 63258- 6863 May, Encounter for long-term (current) use of anticoagulants V58.61 [facility] [address] [place] [address] 82597- 3367 Apr, Encounter for long-term (current) use of anticoagulants V58.61 [facility] [id number] [place] [address] 34120- 2204 Apr, group home (current) use of anticoagulants Z79.01 [facility] [id number] [place] [address] 60504- 4709 Apr, Afib I48.91 ; Hypertension I10 ; Cardiomyopathy I42.9 and Palpitations R00.2 [facility] [id number] [place] [address] 34279- 6446 Mar, 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 [facility] [id number] [place] [address] 95056- 2275 Mar, Encounter for long-term (current) use of anticoagulants V58.61 [facility] [id number] [place] [address] 55567- 9482 Mar, Encounter for long-term (current) use of anticoagulants V58.61 [facility] [id number] [place] [address] 43679- 8670 Mar, group home (current) use of anticoagulants Z79.01 and Encounter for therapeutic drug level monitoring Z51.81 [facility] [id number] [place] [address] 90008- 6794 Feb, 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 and Encounter for therapeutic drug level monitoring Z51.81 [facility] [id number] [place] [address] 14196- 3436 Feb, Encounter for long-term (current) use of anticoagulants V58.61 [facility] [id number] [place] [address] 50236- 8598 Feb, [facility] [address] [address]- 9437 Feb, Encounter for long-term (current) use of anticoagulants V58.61 [facility] [id number] [place] [address] 734236- 1106 Feb, Encounter for therapeutic drug level monitoring Z51.81 [facility] [id number] [place] [address] 37782- 8639 Jan, [facility] [id number] [place] [address] 243647- 2220 Dec, Encounter for long-term (current) use of anticoagulants V58.61 and Atrial fibrillation 427.31 [facility] [id number] [place] [address] 973744- 9136 Dec, Chest wall muscle strain S29.011A [facility] [id number] [place] [address] 21891- 7903 Nov, Encounter for long-term (current) use of anticoagulants V58.61 and Atrial fibrillation 427.31 [facility] [id number] [place] [address] 72835- 6086 Nov, Atrial fibrillation 427.31 [facility] [address] [place] [address] 36558- 6769 Nov, [facility] [id number] [place] [address] 61658- 2039 Nov, Atrial fibrillation 427.31 [facility] [address] [place] [address] 45311- 9319 Nov, Atrial fibrillation 427.31 [facility] [id number] [place] [address] 42131- 7534 Oct, Encounter for long-term (current) use of anticoagulants V58.61 [facility] [address] [place] [address] 00657- 2543 Sep, Encounter for long-term (current) use of anticoagulants V58.61 [facility] [address] [address]- 6585 Aug, Encounter for long-term (current) use of anticoagulants V58.61 [facility] [id number] [address]- 2566 July, [facility] [address] [address]- 3187 July, [facility] [id number] [address]- 5350 July, [facility] [id number] [place] [address] 13520- 6802 Jun, [facility] [address] [address]- 9336 Jun, [facility] [address] [address]- 2090 May, [facility] [id number] [address]- 8195 May, [facility] [address] 1400 May, [facility] [address] 1324 Apr, [facility] [address] [address]- 3556 Apr, [facility] [id number] [address]- 3996 Apr, [facility] [address], [place] [address]- 6886 Apr, [facility] [id number] [address]- 4416 Apr, [facility] [address], [place] [address]- 6851 Apr, [facility] [place] [facility] [address] [id number] [place] [address]- 6868 Apr, [facility] [place] [facility] [address] [id number] [place] [address]- 3706 Mar, [facility] [place] [facility] [address] [facility] [id number] [place] [address]- 2240 Mar, [facility] [place] [facility] [address] [id number] [place] [address]- 9176 Mar, [facility] [place] [facility] [address] [id number] [place] [address]- 2148 Mar, [facility] [place] [facility] [address] [id number] [place] [address]- 5128 Mar, [facility] [place] [facility] [address] [id number] [place] [address]- 8257 Mar, [facility] [place] [facility] [address] [id number] [address]- 5489 Mar, [facility] [place] [facility] [address] [id number] [address]- 4486 Mar, [facility] [place] [facility] [address] [id number] [place] [address]- 4552 Feb, [facility] [place] [facility] [address] [id number], [place] [address]- 5078 Feb, [facility] [place] [facility] [address] [id number], [place] [address]- 5750 Feb, [facility] [place] [facility] [address] [id number] [place] [address]- 2347 Feb, [facility] [place] [facility] [address] [id number] [place] [address]- 7457 Feb, [facility] [place] [facility] [address] [id number] [place] [address]- 4355 Feb, [facility] [place] [facility] [address] [id number] [place] [address]- 1704 Jan, [facility] [place] [facility] [address] [id number] [place] [address]- 7312 Jan, [facility] [place] [facility] [address] [id number] [place] [address]- 5449 Jan, [facility] [place] [facility] [address] [id number] [place] [address]- 9965 Jan, [facility] [place] [facility] [address] [id number] [place] [address]- 7728 Jan, [facility] [place] [facility] [address] [id number] [place] [address]- 9178 Jan, [facility] [place] [facility] [address] [id number] [place] [address]- 8006 Dec, [facility] [place] [facility] [address] [id number] [place] [address]- 5890 Dec, [facility] [place] [facility] [address] [id number] [place] [address]- 5500 Dec, [facility] [place] [facility] [address] [id number] [place] [address]- 3705 Dec, [facility] [place] [facility] [address] [id number] [place] [address]- 8191 Nov, [facility] [place] [facility] [address] [id number] [place] [address]- 6340 Nov, [facility] [place] [facility] [address] [id number] [place] [address]- 2147 Oct, [facility] [place] [facility] [address] [id number] [place] [address]- 5057 Oct, [facility] [place] [facility] [address] [id number] [place] [address]- 1411 Oct, [facility] [place] [facility] [address] [id number] [place] [address]- 9723 Oct, [facility] [place] [facility] [address] [id number] [place] [address]- 5416 Oct, [facility] [place] [facility] [address] [id number] [place] [address]- 3713 Oct, [facility] [place] [facility] [address] [id number] [place] [address]- 7707 Sep, [facility] [place] [facility] [address] [id number] [place] [address]- 1154 Sep, [facility] [place] [facility] [address] [id number] [place] [address]- 8533 Sep, [facility] [place] [facility] [address] [id number] [place] [address]- 8315 Sep, [facility] [place] [facility] [address] [id number] [place] [address]- 7589 Sep, [facility] [place] [facility] [address] [id number] [place] [address]- 1589 Sep, [facility] [place] [facility] [address] [id number] [place] [address]- 7713 Sep, [facility] [place] [facility] [address] [id number] [place] [address]- 3801 Sep, [facility] [place] [facility] [address] [id number] [place] [address]- 5402 Sep, [facility] [place] [facility] [address] [id number] [place] [address]- 8019 Sep, [facility] [place] [facility] [address] [id number] [place] [address]- 2180 Sep, [facility] [place] [facility] [address] [id number] [place] [address]- 0852 Sep, [facility] [place] [facility] [address] [id number] [place] 4270 Sep, [facility] [place] [facility] [address] [id number] [address]- 2546 Sep, [facility] [id number] [address]- 2546 Feb, [facility] [address], [place] [address]- 2546 Feb, [facility] [id number] [address]- 2546 July, [facility] [id number] [place] [address] 22169- 2546 Apr, [facility] [id number] [address]- 2546 Apr, [facility] [id number] [address]- 2546 Apr, [facility] [id number] [address]- 2546 Apr, IMMUNIZATIONS No Known Immunizations SOCIAL HISTORY Never Assessed REASON FOR VISIT letter PLAN OF CARE VITAL SIGNS MEDICATIONS Unknown [...] Intubation with ET tube and transferred to [facility] Trach placed 03/2017 Surgical History Defibrillation placed 2017 Surgical History Trach/PEG Tube placed and removed [facility] after Intubation 2017 Hospitalization History ICU for Afib 09/2013 Hospitalization History Admitted to [facility] Transferred to Cardiac ICU/ Rehab 03/2017 Hospitalization History Coded, Defribrillated and ET tube placed for ventillation and transferred to [facility] 03/2017
--- NOTE | 2018-05-09 18:05 | ED Chest Pain ---
General Chief Complaint: Chest Pain Stated Complaint: CHEST PAIN, SOB Source: patient, family (DAD) History of Present Illness Date Seen by Provider: May 09, 2018 Time Seen by Provider: 17:50 Initial Comments PT ARRIVES VIA POV FROM HOME, WITH DAD C/O CHEST PAIN AND SHORTNESS OF BREATH--BEGAN 30 MINUTES AGO WHILE SITTING AT COMPUTER PAIN IS ACROSS LOWER CHEST AND RADIATES TO LEFT SHOULDER RATES PAIN 3-4/10 NOTHING WORSENS OR IMPROVES PAIN NO SWEATS NO NAUSEA/VOMITING NO SWELLING IN LEGS/ FEET OR PAIN IN CALVES NO PALPITATIONS PT HAS FAIRLY EXTENSIVE CARDIAC HISTORY WAS IN COMA FOR 3 WEEKS IN MAR 2017, AFTER CARDIAC ARRHYTHMIA 03/31/17 --V-TACH WITH CARDIOPULMONARY ARREST--S/P RESUSCITATION ALSO HAS HISTORY OF ATRIAL FIBRILLATION FOR A FEW YEARS HAS HAD 2 PACEMAKERS AND CARDIAC ABLATION HAS HAD "MINI-MAZE" PROCEDURE FOR ATRIAL FIBRILLATION PT IS CURRENTLY ON ELIQUIS, METOPROLOL, MG AND ENTRESTO "GOT SCARED" WHEN HE STARTED HAVING THE ABOVE SYMPTOMS PCP: DR WILSON ALSO HAS A PCP AT [facility]: DR. KELLEY AT Allergies and Home Medications Allergies Coded Allergies: Penicillins (Verified Allergy, Unknown, 09/19/13) Home Medications Apixaban 5 Mg Tablet, 5 MG PO BID, (Reported) Calcium Carbonate/Mag Carb/FA 1 Each Tablet, 1 EACH PO BID, (Reported) Metoprolol Tartrate 50 Mg Tablet, 50 MG PO BID, (Reported) Patient Home Medication List Home Medication List Reviewed: Yes Review of Systems Review of Systems Constitutional: no symptoms reported Respiratory: See HPI, Shortness of Air Cardiovascular: See HPI, Chest Pain; Denies Edema, Denies Irregular Heart Rate , Denies Lightheadedness, Denies Palpitations, Denies Syncope Gastrointestinal: No Symptoms Reported; Denies Nausea, Denies Vomiting Genitourinary: No Symptoms Reported Musculoskeletal: see HPI Skin: no symptoms reported Psychiatric/Neurological: See HPI, Pre-Existing Deficit (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 DUE TO CARDIAC [id number]) Endocrine: No Symptoms Reported Hematologic/Lymphatic: No Symptoms Reported Past [id number] Hx Patient Social History Alcohol Use: Denies Use Recreational Drug Use: No Smoking Status: Never a Smoker 2nd Hand Smoke Exposure: No Recent Foreign Travel: No Contact w/Someone Who Travel: No Immunizations Up To Date Tetanus Booster (TDap): More than 5yrs Past Medical History Surgeries: Yes (PACEMAKER X 2; CARDIAC ABLATION; "MINI-MAZE" PROCEDURE; FEEDING TUBE-REMOVED) Respiratory: No Cardiac: Yes (CHF, CARDIOMYOPATHY, ATIAL FIBRILLATION; V-TACH 03/31/17 WITH CODE BLUE--RESUSCITATION AND S/P PACEMAKER X 2; CARDIAC ABLATION; "MINI-MAZE" PROCEDURE) Atrial Fibrillation, Cardiomyopathy Neurological: Yes (COMA X 3 WEEKS IN MAR 2017 AFTER V-TACH; WITH ANOXIC BRAIN INJURY AND SHORT TERM MEMORY LOSS) Reproductive Disorders: No Genitourinary: No Gastrointestinal: Yes (S/P FEEDING TUBE WITH REMOVAL DUE TO COMA X 3 WEEKS. ) Gastroesophageal Reflux, Chronic Constipation Musculoskeletal: No Endocrine: No HEENT: No Cancer: No Psychosocial: No Integumentary: Yes Herpes Blood Disorders: No Adverse Reaction/Blood Tranf: No Family Medical History Family history: Arthritis 19 FATHER (rhumatoid arthrtis) 19 MOTHER Family history: Asthma 19 MOTHER Family history: Hypertension 19 FATHER History of - anemia 19 MOTHER Hypercholesterolemia 19 FATHER Psychotic disorder 19 MOTHER (depression/anxiety) Physical Exam Vital Signs Vital Signs - First Documented 05/09/18 17:57 Temp 98.3 Pulse 76 Resp 20 B/P (MAP) 133/90 (104) Pulse Ox 98 O2 Delivery Room Air Capillary Refill : Less Than 3 Seconds Height, Weight, BMI Height: 5'4.00" Weight: 198lbs. 7.0oz. [id number]; 34.33 BMI Method:Unable to Obtain General Appearance: No Apparent Distress, WD/WN Neck: Full Range of Motion, Normal Inspection, Non Tender, Supple; No Carotid Bruit, No JVD Respiratory: Chest Non Tender, Normal Breath Sounds, No Accessory Muscle Use, No Respiratory Distress Cardiovascular: Regular Rate, Rhythm, No Edema, No JVD, No Murmur, Normal Peripheral Pulses Gastrointestinal: Normal Bowel Sounds, No Organomegaly, No Pulsatile Mass, Soft , Tenderness (MILD EPIGASTRIC TENDERNESS) Extremity: Normal Capillary Refill, Normal Inspection, Normal Range of Motion, Non Tender, No Calf Tenderness, No Pedal Edema Neurologic/Psychiatric: Alert, Oriented x3, No Motor/Sensory Deficits, Normal Mood/Affect, technical implementation lead II-XII Norm as Tested Skin: Normal Color, Warm/Dry; No Rash Procedures/Interventions Date of ETT Placement: Mar 31, 2017 Time of ETT Placement: 0756 Progress/Results/Core Measures Results/Orders Lab Results Laboratory Tests Test 05/09/18 17:53 Range/Units White Blood Count 9.4 4.3-11.0 10^3/uL Red Blood Count 5.35 4.35-5.85 10^6/uL Hemoglobin 14.5 13.3-17.7 G/DL Hematocrit 44 40-54 % Mean Corpuscular Volume 83 80-99 FL Mean Corpuscular Hemoglobin 27 25-34 PG Mean Corpuscular Hemoglobin Concent 33 32-36 G/DL Red Cell Distribution Width 14.1 10.0-14.5 % Platelet Count 291 130-400 10^3/uL Mean Platelet Volume 10.7 H 7.4-10.4 FL Neutrophils (%) (Auto) 65 42-75 % Lymphocytes (%) (Auto) 24 12-44 % Monocytes (%) (Auto) 7 0-12 % Eosinophils (%) (Auto) 3 0-10 % Basophils (%) (Auto) 1 0-10 % Neutrophils # (Auto) 6.1 1.8-7.8 X 10^3 Lymphocytes # (Auto) 2.3 1.0-4.0 X 10^3 Monocytes # (Auto) 0.7 0.0-1.0 X 10^3 Eosinophils # (Auto) 0.3 0.0-0.3 10^3/uL Basophils # (Auto) 0.1 0.0-0.1 10^3/uL Prothrombin Time 13.3 12.2-14.7 SEC INR Comment 1.0 0.8-1.4 Activated Partial Thromboplast Time 35 24-35 SEC Sodium Level 136 135-145 MMOL/L Potassium Level 3.6 3.6-5.0 MMOL/L Chloride Level 100 98-107 MMOL/L Carbon Dioxide Level 25 21-32 MMOL/L Anion Gap 11 5-14 MMOL/L Blood Urea Nitrogen 10 7-18 MG/DL Creatinine 0.97 0.60-1.30 MG/DL Estimat Glomerular Filtration Rate > 60 BUN/Creatinine Ratio 10 Glucose Level 96 70-105 MG/DL Calcium Level 9.8 8.5-10.1 MG/DL Corrected Calcium 9.4 8.5-10.1 MG/DL Magnesium Level 2.2 1.8-2.4 MG/DL Total Bilirubin 0.4 0.1-1.0 MG/DL Aspartate Amino Transf (AST/SGOT) 30 5-34 U/L Alanine Aminotransferase (ALT/SGPT) 37 0-55 U/L Alkaline Phosphatase 60 40-136 U/L Total Creatine Kinase 67 30-200 U/L Creatine Kinase MB 1.1 <6.6 NG/ML Myoglobin 21.7 10.0-92.0 NG/ML Troponin I < 0.028 <0.028 NG/ML B-Type Natriuretic Peptide 10.6 <100.0 PG/ML Total Protein 8.1 6.4-8.2 GM/DL Albumin 4.5 3.2-4.5 GM/DL Amylase Level 51 25-125 U/L Lipase 31 8-78 U/L My Orders Orders - MONY ANDRADE DO Cbc With Automated Diff (05/09/18 17:50) Magnesium (05/09/18 17:50) Chest 1 View, Ap/Pa Only (05/09/18 17:50) Ekg Tracing (05/09/18 17:50) Cardiac Profile 1 (05/09/18 17:50) Comprehensive Metabolic Panel (05/09/18 17:50) Myoglobin Serum (05/09/18 17:50) Protime With Inr (05/09/18 17:50) Partial Thromboplastin Time (05/09/18 17:50) O2 (05/09/18 17:50) Monitor-Rhythm Ecg Trace Only (05/09/18 17:50) Saline Lock/Iv-Start (05/09/18 17:50) Creatine Kinase (05/09/18 17:50) Creatine Kinase Mb (05/09/18 17:50) Lipase (05/09/18 17:50) Amylase (05/09/18 17:50) BNP (05/09/18 17:50) Aspirin Chewable Tablet (Baby Aspirin Ch (05/09/18 18:30) Ct Hellen Chest/Noang Abd-Pelv W (05/09/18 18:32) Iohexol Injection (Omnipaque 350 Mg/Ml 1 (05/09/18 18:45) Contrast Received (Contrast Received) (05/09/18 18:45) Ns (Ivpb) (Sodium Chloride 0.9% Ivpb Bag (05/09/18 18:45) Medications Given in ED Vital Signs/I&O 05/09/18 05/09/18 05/09/18 17:57 17:57 20:05 Temp 98.3 98.0 Pulse 76 80 Resp 20 18 B/P (MAP) 133/90 (104) 114/75 (88) Pulse Ox 98 98 O2 Delivery Room Air Room Air Progress Progress Note : Progress Note PAIN EASED WITH OUT TREATMENT DISCUSSION WITH PT AND FATHER AND ADVISED ADMIT. PT DECLINES. STATES HE FEELS FINE NOW. ADVISED PT TO RETURN TO ER IMMEDIATELY IF SYMPTOMS RETURNED. Initial ECG Impression Date: May 09, 2018 Initial ECG Impression Time: 17:47 Initial ECG Rate: 74 Initial ECG Rhythm: Normal Sinus Initial ECG Impression: Normal Diagnostic Imaging Comments CXR--NO ACUTE PROCESS CT CHEST ANGIOGRAM/ ABDOMEN AND PELVIS--NO ACUTE PROCESS, NO P.E. PER RADIOLOGIST REPORTS @ 1920 Reviewed: Reviewed by Me Departure Impression Primary Impression: Chest pain Additional Impression: Epigastric abdominal pain Disposition: 01 HOME, SELF-CARE Condition: Stable Departure-Patient Inst. Referrals: BROOK WILSON MD (PCP/Family) Primary Care Physician Patient Instructions: Chest Pain (DC) Add. Discharge Instructions: CONTINUE YOUR REGULAR MEDICATIONS PRESCRIBED FOLLOW UP WITH DR. WILSON TOMORROW FOR FURTHER CARE RETURN TO ER IF SYMPTOMS RETURN All discharge instructions reviewed with patient and/or family. Voiced understanding. MONY ANDRADE DO May 09, 2018 18:04
--- OUTSIDE RECORDS SUMMARY | 2018-05-09 18:05 | XMS REPORT ---
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.01 Active 153427350 Problem Cardiomyopathy I42.9 Active 75721723 Problem 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 I48.2 Active 000060954 Problem Post-cardiac injury syndrome I24.1 Active 01950795 Problem Anoxic brain injury G93.1 Active 939931467 Problem Hypertension I10 Active 57192636 Problem Adjustment disorder with depressed mood F43.21 Active 45105326 Problem Cardiac defibrillator in place Z95.810 Active 109858057 Problem Afib I48.91 Active 21692874 Problem Non-ischemic cardiomyopathy I42.8 Active 55280541 Problem History of cardiac arrest Z86.74 Active 343325892 Problem Current moderate episode of major depressive disorder without prior episode F32.1 Active 15397554 ALLERGIES No Information ENCOUNTERS Encounter Location Date Diagnosis [facility] [id number] [place] [address] 91006- 3579 Sep, [facility] [id number] [place] [address] 55371- 8440 Aug, [facility] [id number] [place] [address] 88655- 6851 July, [facility] [id number] [place] [address] 86927- 4783 July, [facility] [id number] [place] [address] 43807- 9454 Jun, Adjustment disorder with depressed mood F43.21 [facility] [address] [place] [address]- 8817 04 Jun, 2017 [facility] [id number] [address] 8709 Jun, [facility] [id number] [place] [address] 03946- 3683 May, [facility] [id number] [place] [address] 40924- 4532 May, [facility] [id number] [place] [address] 86665- 7482 16 May, 2017 [facility] [id number] [place] [address] 42226- 8230 May, [facility] [id number] [place] [address] 82270- 4340 May, History of cardiac arrest Z86.74 ; Cardiac defibrillator in place Z95.810 ; 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 I48.2 and Current moderate episode of major depressive disorder without prior episode F32.1 [facility] [id number] [place] [address] 52880- 3797 May, [facility] [id number] [place] [address] 27701- 6030 Mar, 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.01 [facility] [id number] [place] [address] 68488- 2160 Dec, Afib I48.91 [facility] [id number] [place] [address] 43482- 7290 Dec, 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 I48.2 [facility] [id number] [place] [address] 54075- 1128 Nov, Hypertension I10 [facility] [id number] [place] [address] 45775- 8974 Oct, 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 I48.2 [facility] [id number] [place] [address] 12402- 8629 Oct, snf (current) use of anticoagulants Z79.01 [facility] [id number] [place] [address] 68619- 1433 Oct, 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 I48.2 [facility] [id number] [place] [address] 63199- 1319 Oct, 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 I48.2 [facility] [id number] [place] [address] 53271- 3338 Sep, snf (current) use of anticoagulants Z79.01 ; Hypertension I10 ; Cardiomyopathy I42.9 and Afib I48.91 [facility] [id number] [place] [address] 44985- 1487 Sep, snf (current) use of anticoagulants Z79.01 ; Hypertension I10 ; Cardiomyopathy I42.9 and Afib I48.91 [facility] [id number] [place] [address] 80546- 8656 Aug, snf (current) use of anticoagulants Z79.01 [facility] [id number] [place] [address] 63378- 5316 Aug, 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.01 [facility] [id number] [place] [address] 63652 2546 Aug, 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.01 [facility] [id number] [place] [address] 01372- 8512 July, snf (current) use of anticoagulants Z79.01 [facility] [id number] [place] [address] 42116- 1359 Jun, snf (current) use of anticoagulants Z79.01 [facility] [id number] [place] [address] 41519- 2266 Jun, 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.01 [facility] [id number] [place] [address] 03014- 8386 May, 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 I48.2 [facility] [id number] [place] [address] 84351 2546 May, [facility] [id number] [place] [address] 27613 2546 May, snf (current) use of anticoagulants Z79.01 [facility] [id number] [place] [address] 13815 2546 May, 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.01 [facility] [address] [address] 2546 May, Afib I48.91 ; Non-ischemic cardiomyopathy I42.8 ; Hypotension, unspecified hypotension type I95.9 and Heart palpitations R00.2 [facility] [id number] [place] [address] 45315- 4486 16 Apr, 2016 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.01 [facility] [id number] [place] [address] 91640 2546 Apr, 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.01 [facility] [id number] [place] [address] 74212 2546 Mar, 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.01 [facility] [id number] [place] [address] 98080 2546 Feb, 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.01 [facility] [id number] [place] [address] 23421 2546 Feb, 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.01 [facility] [id number] [place] [address] 47415 2546 Jan, snf (current) use of anticoagulants Z79.01 [facility] [id number] [place] [address] 66489 2546 Jan, 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.01 [facility] [id number] [place] [address] 20949 2546 Dec, 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.01 [facility] [address] [place] [address] 23463 2546 Dec, snf (current) use of anticoagulants Z79.01 [facility] [id number] [place] [address] 47150 2546 Oct, snf (current) use of anticoagulants Z79.01 [facility] [address] [place] [address] 72878 2546 Oct, snf (current) use of anticoagulants Z79.01 [facility] [id number] [place] [address] 18867- 9185 Oct, Afib I48.91 ; Cardiomyopathy I42.9 ; Palpitations R00.2 and Non-rheumatic tricuspid valve insufficiency I36.1 [facility] [id number] [place] [address] 81734- 8661 Sep, 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 I48.2 ; snf (current) use of anticoagulants Z79.01 ; Cardiomyopathy I42.9 and Hypertension I10 [facility] [id number] [place] [address] 63165 -1684 Aug, Allergic rhinitis, unspecified allergic rhinitis type J30.9 [facility] [id number] [place] [address] 05323- 6550 Aug, 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.01 [facility] [id number] [place] [address] 44208- 5965 Jun, snf (current) use of anticoagulants Z79.01 [facility] [id number] [place] [address] 41173- 8167 Jun, snf (current) use of anticoagulants Z79.01 [facility] [id number] [place] [address] 03064- 0028 Jun, snf (current) use of anticoagulants Z79.01 [facility] [id number] [place] [address] 27792- 3041 Jun, [facility] [id number] [place] [address] 56430- 8143 May, Encounter for long-term (current) use of anticoagulants V58.61 [facility] [id number] [place] [address] 03900- 8928 May, Encounter for long-term (current) use of anticoagulants V58.61 [facility] [address] 56742- 1198 May, Encounter for long-term (current) use of anticoagulants V58.61 [facility] [address] [place] [address] 48157- 1296 Apr, Encounter for long-term (current) use of anticoagulants V58.61 [facility] [id number] [place] [address] 51008- 1526 Apr, snf (current) use of anticoagulants Z79.01 [facility] [id number] [place] [address] 90648- 8107 Apr, Afib I48.91 ; Hypertension I10 ; Cardiomyopathy I42.9 and Palpitations R00.2 [facility] [id number] [place] [address] 89935- 8339 Mar, 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.01 [facility] [id number] [place] [address] 03965- 1179 Mar, Encounter for long-term (current) use of anticoagulants V58.61 [facility] [id number] [place] [address] 24082- 0916 Mar, Encounter for long-term (current) use of anticoagulants V58.61 [facility] [id number] [place] [address] 19733- 3418 Mar, snf (current) use of anticoagulants Z79.01 and Encounter for therapeutic drug level monitoring Z51.81 [facility] [address] [place] [address] 24654- 8892 Feb, 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.01 and Encounter for therapeutic drug level monitoring Z51.81 [facility] [id number] [place] [address] 91905- 2858 Feb, Encounter for long-term (current) use of anticoagulants V58.61 [facility] [id number] [place] [address] 83852- 4593 Feb, [facility] [address] [address]- 4415 Feb, Encounter for long-term (current) use of anticoagulants V58.61 [facility] [address] [place] [address] 144335- 4916 Feb, Encounter for therapeutic drug level monitoring Z51.81 [facility] [id number] [place] [address] 49057- 3136 Jan, [facility] [id number] [place] [address] 019299- 2016 Dec, Encounter for long-term (current) use of anticoagulants V58.61 and Atrial fibrillation 427.31 [facility] [id number] [place] [address] 509445- 3555 Dec, Chest wall muscle strain S29.011A [facility] [id number] [place] [address] 11217- 9647 Nov, Encounter for long-term (current) use of anticoagulants V58.61 and Atrial fibrillation 427.31 [facility] [id number] [place] [address] 55979- 5551 Nov, Atrial fibrillation 427.31 [facility] [address] [place] [address] 56106- 3023 Nov, [facility] [address] [place] [address] 85162- 5446 Nov, Atrial fibrillation 427.31 [facility] [address] [place] [address] 43144- 7492 Nov, Atrial fibrillation 427.31 [facility] [id number] [place] [address] 33003- 8775 Oct, Encounter for long-term (current) use of anticoagulants V58.61 [facility] [address] [place] [address] 44844- 2548 Sep, Encounter for long-term (current) use of anticoagulants V58.61 [facility] [address] [address]- 0776 Aug, Encounter for long-term (current) use of anticoagulants V58.61 [facility] [id number] [address]- 6116 July, [facility] [address] [address]- 8372 July, [facility] [id number] [address]- 1366 July, [facility] [id number] [place] [address] 34186- 8149 Jun, [facility] [address] [address]- 7932 Jun, [facility] [address] [address]- 2360 May, [facility] [id number] [address]- 9583 May, [facility] [address] 3932 May, [facility] [address] 7134 Apr, [facility] [address] [address]- 4736 Apr, [facility] [id number] [address]- 6976 Apr, [facility] [address] [address]- 6206 Apr, [facility] [id number] [address]- 4426 Apr, [facility] [address] [address]- 9756 Apr, [facility] [place] [facility] [address] [id number] [place] [address]- 7890 Apr, [facility] [place] [facility] [address] [id number] [place] [address]- 2890 Mar, [facility] [place] [facility] [address] [facility] [id number] [place] [address]- 2343 Mar, [facility] [place] [facility] [address] [id number] [place] [address]- 5884 Mar, [facility] [place] [facility] [address] [id number] [place] [address]- 2538 Mar, [facility] [place] [facility] [address] [id number] [place] [address]- 3365 Mar, [facility] [place] [facility] [address] [id number] [place] [address]- 2213 Mar, [facility] [place] [facility] [address] [id number] [address]- 7207 Mar, [facility] [place] [facility] [address] [id number] [place] [address]- 2257 Mar, [facility] [place] [facility] [address] [id number] [place] [address]- 1729 Feb, [facility] [place] [facility] [address] [id number] [address]- 6365 Feb, [facility] [place] [facility] [address] [id number] [address]- 1673 Feb, [facility] [place] [facility] [address] [id number] [place] [address]- 0720 Feb, [facility] [place] [facility] [address] [id number] [place] [address]- 0503 Feb, [facility] [place] [facility] [address] [id number] [place] [address]- 1381 Feb, [facility] [place] [facility] [address] [id number] [place] [address]- 8386 Jan, [facility] [place] [facility] [address] [id number] [place] [address]- 6968 Jan, [facility] [place] [facility] [address] [id number] [place] [address]- 4469 Jan, [facility] [place] [facility] [address] [id number] [place] [address]- 6847 Jan, [facility] [place] [facility] [address] [id number] [place] [address]- 6015 Jan, [facility] [place] [facility] [address] [id number] [place] [address]- 1913 Jan, [facility] [place] [facility] [address] [id number] [place] [address]- 2497 Dec, [facility] [place] [facility] [address] [id number] [place] [address]- 1095 Dec, [facility] [place] [facility] [address] [id number] [place] [address]- 2026 Dec, [facility] [place] [facility] [address] [id number] [place] [address]- 4869 Dec, [facility] [place] [facility] [address] [id number] [place] [address]- 2578 Nov, [facility] [place] [facility] [address] [id number] [place] [address]- 9201 Nov, [facility] [place] [facility] [address] [id number] [place] [address]- 8888 Oct, [facility] [place] [facility] [address] [id number] [place] [address]- 4385 Oct, [facility] [place] [facility] [address] [id number] [place] [address]- 1101 Oct, [facility] [place] [facility] [address] [id number] [place] [address]- 7538 Oct, [facility] [place] [facility] [address] [id number] [place] [address]- 8002 Oct, [facility] [place] [facility] [address] [id number] [place] [address]- 7096 Oct, [facility] [place] [facility] [address] [id number] [place] [address]- 0439 Sep, [facility] [place] [facility] [address] [id number] [place] [address]- 7965 Sep, [facility] [place] [facility] [address] [id number] [place] [address]- 5180 Sep, [facility] [place] [facility] [address] [id number] [place] [address]- 8030 Sep, [facility] [place] [facility] [address] [id number] [place] [address]- 0789 Sep, [facility] [place] [facility] [address] [id number] [place] [address]- 6827 Sep, [facility] [place] [facility] [address] [id number] [place] [address]- 9649 Sep, [facility] [place] [facility] [address] [id number] [place] [address]- 2990 Sep, [facility] [place] [facility] [address] [id number] [place] [address]- 3029 Sep, [facility] [place] [facility] [address] [id number] [place] [address]- 9864 Sep, [facility] [place] [facility] [address] [id number] [place] [address]- 3544 Sep, [facility] [place] [facility] [address] [id number] [place] [address]- 1510 Sep, [facility] [place] [facility] [address] [id number] [place] 0413 Sep, [facility] [place] [facility] [address] [id number] [address]- 2546 Sep, [facility] [id number] [address]- 2546 Feb, [facility] [id number] [address]- 2546 Feb, [facility] [id number] [address]- 2546 July, [facility] [id number] [place] [address] 46176- 2546 Apr, [facility] [id number] [address] 2546 Apr, [facility] [id number] [address]- 2546 Apr, [facility] [id number] [address]- 2546 Apr, IMMUNIZATIONS No Known Immunizations SOCIAL [...] Intubation with ET tube and transferred to [facility] Trach placed 03/2017 Surgical History Defibrillation placed 2017 Surgical History Trach/PEG Tube placed and removed [facility] after Intubation 2018 Hospitalization History ICU for Afib 09/2013 Hospitalization History Admitted to Transferred to Cardiac ICU/ Rehab 03/2017 Hospitalization History Coded, Defribrillated and ET tube placed for ventillation and transferred to [facility] 03/2017
--- OUTSIDE RECORDS SUMMARY | 2018-05-09 18:05 | XMS REPORT ---
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 264435131 Problem Cardiomyopathy I42.9 Active 66851672 Problem 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 I48.2 Active 745133298 Problem Post-cardiac injury syndrome I24.1 Active 06311197 Problem Anoxic brain injury G93.1 Active 533722378 Problem Hypertension I10 Active 32685138 Problem Adjustment disorder with depressed mood F43.21 Active 25862802 Problem Cardiac defibrillator in place Z95.810 Active 333052495 Problem Afib I48.91 Active 20143009 Problem Non-ischemic cardiomyopathy I42.8 Active 04654381 Problem History of cardiac arrest Z86.74 Active 792539415 Problem Current moderate episode of major depressive disorder without prior episode F32.1 Active 30854029 ALLERGIES No Information ENCOUNTERS Encounter Location Date Diagnosis [facility] [id number] [place] [address] 68136- 8776 Aug, [facility] [id number] [place] [address] 79220- 1340 July, [facility] [id number] [place] [address] 34227- 5616 July, [facility] [id number] [place] [address] 78673- 0622 Jun, Adjustment disorder with depressed mood F43.21 [facility] [address] [place] [address] 34510- 0201 Jun, [facility] [address] [place] [address]- 9236 Jun, [facility] [id number] [place] [address] 98257- 0026 May, [facility] [id number] [place] [address] 72524- 9771 May, [facility] [id number] [place] [address] 09140- 4250 May, [facility] [id number] [place] [address] 36290- 7344 15 May, 2017 [facility] [id number] [place] [address] 05587- 8504 13 May, 2017 History of cardiac arrest Z86.74 ; Cardiac defibrillator in place Z95.810 ; 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 I48.2 and Current moderate episode of major depressive disorder without prior episode F32.1 [facility] [id number] [place] [address] 48844- 7578 May, [facility] [id number] [place] [address] 49304- 1648 Mar, 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 [facility] [id number] [place] [address] 80271- 8324 Mar, [facility] [id number] [place] [address] 53192- 5333 Mar, 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 [facility] [address] [address] 3824 08 Feb, 2017 Afib I48.91 [facility] [id number] [place] [address] 89507- 8256 Feb, 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 [facility] [address] [address] Jan, Other viral agents as the cause of diseases classified elsewhere B97.89 ; Acute upper respiratory infection, unspecified J06.9 and Body aches R52 [facility] [id number] [place] [address] 22155- 6331 Jan, Afib I48.91 [facility] [id number] [place] [address] 99929- 5501 Jan, Afib I48.91 and 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 [facility] [id number] [place] [address] 01638- 0517 Dec, Afib I48.91 [facility] [id number] [place] [address] 60282- 1545 Dec, 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 I48.2 [facility] [id number] [place] [address] 84107- 0994 Nov, Hypertension I10 [facility] [id number] [place] [address] 55073- 7425 Oct, 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 I48.2 [facility] [id number] [place] [address] 64001- 9851 Oct, 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 [facility] [address] [place] [address] 25900- 0547 Oct, 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 I48.2 [facility] [id number] [place] [address] 80231- 8231 Oct, 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 I48.2 [facility] [id number] [place] [address] 85786- 1589 Sep, 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 ; Hypertension I10 ; Cardiomyopathy I42.9 and Afib I48.91 [facility] [address] [place] [address] 56967- 8664 Sep, 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 ; Hypertension I10 ; Cardiomyopathy I42.9 and Afib I48.91 [facility] [address] [address]- 8533 Aug, 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 [facility] [id number] [place] [address] 72360- 8116 Aug, 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 [facility] [id number] [place] [address] 59587- 6776 Aug, 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 [facility] [address] [place] [address] 84027- 2737 July, 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 [facility] [id number] [place] [address] 92924- 1020 Jun, 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 [facility] [id number] [place] [address] 72434- 0607 Jun, 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 [facility] [address] [place] [address] 32376- 0348 May, 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 I48.2 [facility] [id number] [place] [address] 31855- 5450 May, [facility] [id number] [place] [address] 03887- 9750 May, 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 [place] [address] [address]- 8858 May, 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 [facility] [address] [place] [address] 98362- 2896 May, Afib I48.91 ; Non-ischemic cardiomyopathy I42.8 ; Hypotension, unspecified hypotension type I95.9 and Heart palpitations R00.2 [facility] [address] [address] 2546 16 Apr, 2016 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 [facility] [id number] [place] [address] 01794 2546 Apr, 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 [place] [address] [place] [address] 86090 2546 Mar, 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 [facility] [place] [address] [place] [address] 99959 2546 Feb, 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 [facility] [id number] [place] [address] 87275 2546 Feb, 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 [facility] [id number] [place] [address] 11169 2546 Jan, 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 [facility] [place] [address] [place] [address] 71526 2546 Jan, 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 [facility] [place] [address] [place] [address] 13423 2546 Dec, 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 [facility] [address] [place] [address] 32650 2546 Dec, 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 [facility] [place] [address] [place] [address] 94813 2546 Oct, 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 [facility] [place] [address] [place] [address] 89913 2546 Oct, 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 [facility] [place] [address] [place] [address] 24992- 9939 Oct, Afib I48.91 ; Cardiomyopathy I42.9 ; Palpitations R00.2 and Non-rheumatic tricuspid valve insufficiency I36.1 [facility] [facility] [address] 18292- 1374 Sep, 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 I48.2 ; 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 ; Cardiomyopathy I42.9 and Hypertension I10 [facility] [address] 55560 -0609 Aug, Allergic rhinitis, unspecified allergic rhinitis type J30.9 [place] [facility] [address] 90500- 9764 Aug, 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 [place] [address] 07619- 8477 Jun, 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 [place] [address] 68024- 0395 Jun, 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 [place] [address] 92820- 1079 Jun, 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 [place] [address] 86362- 2752 Jun, [facility] [address] 07125- 6106 May, Encounter for long-term (current) use of anticoagulants V58.61 [place] [facility] [address] 47369- 4023 May, Encounter for long-term (current) use of anticoagulants V58.61 [facility] [address] 67780- 6945 May, Encounter for long-term (current) use of anticoagulants V58.61 [facility] [id number] [place] [address] 24323- 7316 Apr, Encounter for long-term (current) use of anticoagulants V58.61 [facility] [id number] [place] [address] 09283- 0759 Apr, 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 [facility] [id number] [place] [address] 87546- 8943 Apr, Afib I48.91 ; Hypertension I10 ; Cardiomyopathy I42.9 and Palpitations R00.[address] 94855- 2955 Mar, 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 [place] [address] 99921- 0901 Mar, Encounter for long-term (current) use of anticoagulants V58.61 [facility] [id number] [place] [address] 39147- 0503 Mar, Encounter for long-term (current) use of anticoagulants V58.61 [facility] [id number] [place] [address] 87144- 3402 Mar, 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 and Encounter for therapeutic drug level monitoring Z51.81 [facility] [id number] [place] [address] 91480- 4675 Feb, 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 and Encounter for therapeutic drug level monitoring Z51.81 [facility] [id number] [place] [address] 63760- 6546 Feb, Encounter for long-term (current) use of anticoagulants V58.61 [facility] [id number] [place] [address] 04711- 7297 Feb, [facility] [address] 35269- 6881 Feb, Encounter for long-term (current) use of anticoagulants V58.61 [facility] [place] [address] [place] [address] 94317- 8209 Feb, Encounter for therapeutic drug level monitoring Z51.81 [facility] [address] [place] [address] 11284- 9016 Jan, [facility] [id number] [place] [address] 984155- 1364 Dec, Encounter for long-term (current) use of anticoagulants V58.61 and Atrial fibrillation 427.31 [facility] [place] [id number] [place] [address] 034625- 0116 Dec, Chest wall muscle strain S29.011A [facility] [address] [place] [address] 67387- 6535 Nov, Encounter for long-term (current) use of anticoagulants V58.61 and Atrial fibrillation 427.31 [place] [address] [address]- 2546 Nov, Atrial fibrillation 427.31 [facility] [place] [address] [place] [address] 68369- 0846 Nov, [facility] [place] [address] [place] [address] 76486- 6456 Nov, Atrial fibrillation 427.31 [facility] [place] [address] [place] [address] 17976- 7536 Nov, Atrial fibrillation 427.31 [facility] [place] [address] [place] [address] 02403- 1890 Oct, Encounter for long-term (current) use of anticoagulants V58.61 [facility] [address] [place] [address] 68663 2546 Sep, Encounter for long-term (current) use of anticoagulants V58.61 [place] [address] [place] [address] 31103- 5080 Aug, Encounter for long-term (current) use of anticoagulants V58.61 [facility] [address] [address]- 1178 July, [facility] [id number] [address]- 1619 July, [facility] [id number] [address]- 2887 July, [facility] [id number] [address]- 2036 Jun, [facility] [id number] [place] [address] 00546- 4951 Jun, [facility] [id number] [address]- 5438 May, [facility] [id number] [place] [address] 78658- 8889 May, [facility] [address] [address]- 0431 May, [facility] [address] [address]- 4616 Apr, [facility] [address] [address]- 9513 Apr, [facility] [address] [address]- 1255 Apr, [facility] [id number] 9049 Apr, [facility] [address] [address]- 8792 Apr, [facility] [id number] 8925 Apr, [facility] [address] [address]- 8874 Apr, [facility] [place] [facility] [address] [id number] [place] [address]- 3614 Mar, [facility] [place] [facility] [address] [id number] [place] [address]- 2229 Mar, [facility] [place] [facility] [address] [id number] [place] [address]- 8208 Mar, [facility] [place] [facility] [address] [id number] [place] [address]- 9258 Mar, [facility] [place] [facility] [address] [id number] [place] [address]- 6238 Mar, [facility] [place] [facility] [address] [id number] [place] [address]- 3647 Mar, [facility] [place] [facility] [address] [id number] [place] [address]- 7560 Mar, [facility] [place] [facility] [address] [id number] [place] [address]- 5047 Mar, [facility] [place] [facility] [address] [id number] [place] [address]- 7425 Feb, [facility] [place] [facility] [address] [id number] [place] [address]- 6727 Feb, [facility] [place] [facility] [address] [id number] [place] [address]- 7420 Feb, [facility] [place] [facility] [address] [id number] [place] [address]- 8355 Feb, [facility] [place] [facility] [address] [id number] [place] [address]- 3226 Feb, [facility] [place] [facility] [address] [id number] [place] [address]- 0603 Feb, [facility] [place] [facility] [address] [id number] [place] [address]- 4412 Jan, [facility] [place] [facility] [address] [id number] [place] [address]- 0172 Jan, [facility] [place] [facility] [address] [id number] [place] [address]- 1147 Jan, [facility] [place] [facility] [address] [id number] [place] [address]- 3428 Jan, [facility] [place] [facility] [address] [id number] [place] 8634 Jan, [facility] [place] [facility] [address] [id number] [place] [address]- 0946 Jan, [facility] [place] [facility] [address] [id number] [place] [address]- 2277 Dec, [facility] [place] [facility] [address] [id number] [place] [address]- 8721 Dec, [facility] [place] [facility] [address] [id number] [place] [address]- 7074 Dec, [facility] [place] [facility] [address] [id number] [place] [address]- 8378 Dec, [facility] [place] [facility] [address] [id number] [place] [address]- 9070 Nov, [facility] [place] [facility] [address] [id number] [place] [address]- 1011 Nov, [facility] [place] [facility] [address] [id number] [place] [address]- 2707 Oct, [facility] [place] [facility] [address] [id number] [place] [address]- 4399 Oct, [facility] [place] [facility] [address] [id number] [place] [address]- 8734 Oct, [facility] [place] [facility] [address] [id number] [place] [address]- 1788 Oct, [facility] [place] [facility] [address] [id number] [place] [address]- 1301 Oct, [facility] [place] [facility] [address] [id number] [place] [address]- 4450 Oct, [facility] [place] [facility] [address] [id number] [place] [address]- 0563 Sep, [facility] [place] [facility] [address] [id number] [place] [address]- 7220 Sep, [facility] [place] [facility] [address] [id number] [place] [address]- 0552 Sep, [facility] [place] [facility] [address] [id number] [place] [address]- 3640 Sep, [facility] [place] [facility] [address] [id number] [place] [address]- 2954 Sep, [facility] [place] [facility] [address] [id number] [place] [address]- 2058 Sep, [facility] [place] [facility] [address] [id number] [place] [address]- 1087 Sep, [facility] [place] [facility] [address] [id number] [place] [address]- 1527 Sep, [facility] [place] [facility] [address] [id number] [place] [address]- 8673 Sep, [facility] [place] [facility] [address] [id number] [place] [address]- 4304 Sep, [facility] [place] [facility] [address] [id number] [place] [address]- 5946 Sep, [facility] [place] [facility] [address] [id number] [place] [address]- 7186 Sep, [facility] [place] [facility] [address] [id number] [place] [address]- 3765 Sep, [facility] [place] [facility] [address] [id number] [place] 7332 Sep, [facility] [place] [facility] [address] [id number] [place] [address]- 2546 Feb, [facility] [id number] [address] 2546 Feb, [facility] [id number] [address]- 2546 July, [facility] [id number] [address]- 2546 Apr, [facility] [id number] [address]- 2546 Apr, [facility] [id number] [address]- 5016 Apr, [facility] [id number] [address] 2546 Apr, IMMUNIZATIONS No Known Immunizations SOCIAL HISTORY Never Assessed REASON FOR VISIT need hospital followup PLAN OF CARE VITAL SIGNS MEDICATIONS Unknown [...] Intubation with ET tube and transferred to [facility] Trach placed 03/2017 Surgical History Defibrillation placed 2017 Surgical History Trach/PEG Tube placed and removed [facility] after Intubation 2018 Hospitalization History ICU for Afib 09/2013 Hospitalization History Admitted to Transferred to Cardiac ICU/ Rehab 03/2017 Hospitalization History Coded, Defribrillated and ET tube placed for ventillation and transferred to [facility] 03/2017
--- OUTSIDE RECORDS SUMMARY | 2018-05-09 18:06 | XMS REPORT ---
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 089120178 Problem Cardiomyopathy I42.9 Active 42868213 Problem 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 I48.2 Active 119468395 Problem Post-cardiac injury syndrome I24.1 Active 72847193 Problem Anoxic brain injury G93.1 Active 589625449 Problem Hypertension I10 Active 23632119 Problem Adjustment disorder with depressed mood F43.21 Active 97273914 Problem Cardiac defibrillator in place Z95.810 Active 153612621 Problem Afib I48.91 Active 60503798 Problem Non-ischemic cardiomyopathy I42.8 Active 91373850 Problem History of cardiac arrest Z86.74 Active 878205899 Problem Current moderate episode of major depressive disorder without prior episode F32.1 Active 81498674 ALLERGIES No Information ENCOUNTERS Encounter Location Date Diagnosis [facility] [id number] [place] [address] 45587- 6948 Aug, [facility] [id number] [place] [address] 49024- 0435 July, [facility] [id number] [place] [address] 38273- 3253 July, [facility] [id number] [place] [address] 42679- 3204 Jun, Adjustment disorder with depressed mood F43.21 [facility] [id number] [place] [address] 49084- 1258 Jun, [facility] [address] [place] [address]- 2237 Jun, [facility] [id number] [place] [address] 93673- 5830 May, [facility] [id number] [place] [address] 34852- 3717 May, [facility] [id number] [place] [address] 09574- 6387 May, [facility] [id number] [place] [address] 45870- 5658 15 May, 2017 [facility] [id number] [place] [address] 14961- 0930 13 May, 2017 History of cardiac arrest Z86.74 ; Cardiac defibrillator in place Z95.810 ; 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 I48.2 and Current moderate episode of major depressive disorder without prior episode F32.1 [facility] [id number] [place] [address] 56071- 5630 May, [facility] [id number] [place] [address] 46082- 2817 Mar, snf (current) use of anticoagulants Z79.01 [facility] [id number] [place] [address] 51669- 8113 Mar, [facility] [id number] [place] [address] 45150- 4509 Mar, snf (current) use of anticoagulants Z79.01 [facility] [address], [place] [address] 8436 08 Feb, 2017 Afib I48.91 [facility] [id number] [place] [address] 86870- 5443 Feb, 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 [facility] [address], [place] [address] Jan, Other viral agents as the cause of diseases classified elsewhere B97.89 ; Acute upper respiratory infection, unspecified J06.9 and Body aches R52 [facility] [facility] [id number] [place] [address] 61816- 6023 Jan, Afib I48.91 [facility] [id number] [place] [address] 00656- 0004 Jan, Afib I48.91 and 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 [facility] [facility] [id number] [place] [address] 87325- 8665 Dec, Afib I48.91 [facility] [id number] [place] [address] 93421- 7976 Dec, 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 I48.2 [facility] [id number] [place] [address] 69365- 5834 Nov, Hypertension I10 [facility] [id number] [place] [address] 10914- 0154 Oct, 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 I48.2 [facility] [id number] [place] [address] 99164- 5965 Oct, snf (current) use of anticoagulants Z79.01 [facility] [address] [place] [address] 27127- 0530 Oct, 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 I48.2 [facility] [id number] [place] [address] 14798- 2906 Oct, 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 I48.2 [facility] [id number] [place] [address] 06579- 9919 Sep, 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 ; Hypertension I10 ; Cardiomyopathy I42.9 and Afib I48.91 [facility] [address] [place] [address] 58185- 3401 Sep, 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 ; Hypertension I10 ; Cardiomyopathy I42.9 and Afib I48.91 [facility] [address], [place] [address]- 2943 Aug, snf (current) use of anticoagulants Z79.01 [facility] [address] [place] [address] 09058- 7816 Aug, snf (current) use of anticoagulants Z79.01 [facility] [id number] [place] [address] 39650- 4656 Aug, snf (current) use of anticoagulants Z79.01 [facility] [facility] [address] [place] [address] 81572- 2989 July, snf (current) use of anticoagulants Z79.01 [facility] [id number] [place] [address] 08754- 6008 Jun, snf (current) use of anticoagulants Z79.01 [facility] [id number] [place] [address] 44066- 9346 Jun, 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 [facility] [address] [place] [address] 15965- 7932 May, 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 I48.2 [facility] [id number] [place] [address] 33540- 7502 May, [facility] [id number] [place] [address] 95243- 1939 May, 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 [facility] [facility] [address], [place] [address]- 5166 May, snf (current) use of anticoagulants Z79.01 [facility] [address] [place] [address] 38372- 9506 May, Afib I48.91 ; Non-ischemic cardiomyopathy I42.8 ; Hypotension, unspecified hypotension type I95.9 and Heart palpitations R00.2 [facility] [facility] [address], [place] [address] 2546 16 Apr, 2016 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 [facility] [id number] [place] [address] 90620 2546 Apr, snf (current) use of anticoagulants Z79.01 [facility] [address] [place] [address] 84072 2546 Mar, 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 [place] [address] [place] [address] 36388 2546 Feb, 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 [facility] [id number] [place] [address] 00940 2546 Feb, snf (current) use of anticoagulants Z79.01 [facility] [id number] [place] [address] 74858 2546 Jan, snf (current) use of anticoagulants Z79.01 [place] [address] [place] [address] 08738 2546 Jan, snf (current) use of anticoagulants Z79.01 [place] [address] [place] [address] 06598 2546 Dec, 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 [place] [address] [place] [address] 63794 2546 Dec, snf (current) use of anticoagulants Z79.01 [facility] [address] [place] [address] 89380 2546 Oct, snf (current) use of anticoagulants Z79.01 [facility] [address] [place] [address] 33526 2546 Oct, snf (current) use of anticoagulants Z79.01 [facility] [address] [place] [address] 14443- 7597 Oct, Afib I48.91 ; Cardiomyopathy I42.9 ; Palpitations R00.2 and Non-rheumatic tricuspid valve insufficiency I36.1 [place] [address] 72462- 7426 Sep, 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 I48.2 ; 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 ; Cardiomyopathy I42.9 and Hypertension I10 [facility] [address] 42068 -2640 Aug, Allergic rhinitis, unspecified allergic rhinitis type J30.9 [place] [address] 93950- 7746 Aug, 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61 [facility] [address] 73504- 1311 May, Encounter for long-term (current) use of anticoagulants V58.61 [facility] [id number] [place] [address] 90567- 1649 Apr, Encounter for long-term (current) use of anticoagulants V58.61 [facility] [id number] [place] [address] 80301- 0391 Apr, 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 [facility] [id number] [place] [address] 63114- 3268 Apr, Afib I48.91 ; Hypertension I10 ; Cardiomyopathy I42.9 and Palpitations R00.[address] 00537- 7484 Mar, snf (current) use of anticoagulants Z79.01 [place] [address] 40124- 3703 Mar, Encounter for long-term (current) use of anticoagulants V58.61 [facility] [facility] [id number] [place] [address] 08128- 1292 Mar, Encounter for long-term (current) use of anticoagulants V58.61 [facility] [id number] [place] [address] 68168- 7590 Mar, 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 and Encounter for therapeutic drug level monitoring Z51.81 [facility] [facility] [id number] [place] [address] 13187- 2686 Feb, snf (current) use of anticoagulants Z79.01 and Encounter for therapeutic drug level monitoring Z51.81 [facility] [id number] [place] [address] 86578- 3649 Feb, Encounter for long-term (current) use of anticoagulants V58.61 [facility] [id number] [place] [address] 07294- 1682 Feb, [place] [address] 82968- 4623 Feb, Encounter for long-term (current) use of anticoagulants V58.61 [facility] [address] [place] [address] 81461- 3469 Feb, Encounter for therapeutic drug level monitoring Z51.81 [facility] [address] [place] [address] 48852- 4626 Jan, [facility] [id number] [place] [address] 446689- 8053 Dec, Encounter for long-term (current) use of anticoagulants V58.61 and Atrial fibrillation 427.31 [place] [id number] [place] [address] 947811- 6836 Dec, Chest wall muscle strain S29.011A [place] [address] [place] [address] 30554- 2884 Nov, Encounter for long-term (current) use of anticoagulants V58.61 and Atrial fibrillation 427.31 [place] [address], [place] [address]- 2546 Nov, Atrial fibrillation 427.31 [facility] [address] [place] [address] 82677- 8836 Nov, [place] [address] [place] [address] 78559- 5026 Nov, Atrial fibrillation 427.31 [place] [address] [place] [address] 69681- 6096 Nov, Atrial fibrillation 427.31 [place] [address] [place] [address] 06591- 4978 Oct, Encounter for long-term (current) use of anticoagulants V58.61 [facility] [address] [place] [address] 70938 2546 Sep, Encounter for long-term (current) use of anticoagulants V58.61 [facility] [address] [place] [address] 86707- 3072 Aug, Encounter for long-term (current) use of anticoagulants V58.61 [facility] [address], [place] [address]- 0903 July, [facility] [id number], [place] [address]- 1478 July, [facility] [id number], [place] [address]- 2073 July, [facility] [id number] [address]- 1828 Jun, [facility] [id number] [place] [address] 49437- 2402 Jun, [facility] [id number], [place] [address]- 1238 May, [facility] [id number] [place] [address] 61893- 2293 May, [facility] [address], [place] [address]- 3669 May, [facility] [address], [place] [address]- 7495 Apr, [facility] [address], [place] [address]- 2296 Apr, [facility] [address], [place] [address]- 5023 Apr, [facility] [id number] 4269 Apr, [facility] [address], [place] [address]- 6639 Apr, [facility] [id number] 0179 Apr, [facility] [address], [place] [address]- 9882 Apr, [facility] [place] [facility] [address] [id number] [place] [address]- 3297 Mar, [facility] [place] [facility] [address] [id number] [place] [address]- 7378 Mar, [facility] [place] [facility] [address] [id number] [place] [address]- 3663 Mar, [facility] [place] [facility] [address] [id number] [place] [address]- 0195 Mar, [facility] [place] [facility] [address] [id number] [place] [address]- 3621 Mar, [facility] [place] [facility] [address] [id number] [place] [address]- 1206 Mar, [facility] [place] [facility] [address] [id number] [place] [address]- 5589 Mar, [facility] [place] [facility] [address] [id number] [place] [address]- 8028 Mar, [facility] [place] [facility] [address] [id number] [place] [address]- 6382 Feb, [facility] [place] [facility] [address] [id number] [place] [address]- 1333 Feb, [facility] [place] [facility] [address] [id number], [place] [address]- 5672 Feb, [facility] [place] [facility] [address] [id number], [place] [address]- 0806 Feb, [facility] [place] [facility] [address] [id number] [place] [address]- 7716 Feb, [facility] [place] [facility] [address] [id number] [place] [address]- 0475 Feb, [facility] [place] [facility] [address] [id number] [place] [address]- 4596 Jan, [facility] [place] [facility] [address] [id number] [place] [address]- 7968 Jan, [facility] [place] [facility] [address] [id number] [place] [address]- 8782 Jan, [facility] [place] [facility] [address] [id number] [place] [address]- 7773 Jan, [facility] [place] [facility] [address] [id number] [place] 1197 Jan, [facility] [place] [facility] [address] [id number] [place] [address]- 2077 Jan, [facility] [place] [facility] [address] [id number] [place] [address]- 8169 Dec, [facility] [place] [facility] [address] [id number] [place] [address]- 3987 Dec, [facility] [place] [facility] [address] [id number] [place] [address]- 1841 Dec, [facility] [place] [facility] [address] [id number] [place] [address]- 7387 Dec, [facility] [place] [facility] [address] [id number] [place] [address]- 0258 Nov, [facility] [place] [facility] [address] [id number] [place] [address]- 8263 Nov, [facility] [place] [facility] [address] [id number] [place] [address]- 5931 Oct, [facility] [place] [facility] [address] [id number] [place] [address]- 5898 Oct, [facility] [place] [facility] [address] [id number] [place] [address]- 5371 Oct, [facility] [place] [facility] [address] [id number] [place] [address]- 3003 Oct, [facility] [place] [facility] [address] [id number] [place] [address]- 9179 Oct, [facility] [place] [facility] [address] [id number] [place] [address]- 0914 Oct, [facility] [place] [facility] [address] [id number] [place] [address]- 9102 Sep, [facility] [place] [facility] [address] [id number] [place] [address]- 6454 Sep, [facility] [place] [facility] [address] [id number] [place] [address]- 0233 Sep, [facility] [place] [facility] [address] [id number] [place] [address]- 7884 Sep, [facility] [place] [facility] [address] [id number] [place] [address]- 3904 Sep, [facility] [place] [facility] [address] [id number] [place] [address]- 4667 Sep, [facility] [place] [facility] [address] [id number] [place] [address]- 1229 Sep, [facility] [place] [facility] [address] [id number] [place] [address]- 1126 Sep, [facility] [place] [facility] [address] [id number] [place] [address]- 1980 Sep, [facility] [place] [facility] [address] [id number] [place] [address]- 4467 Sep, [facility] [place] [facility] [address] [id number] [place] [address]- 7523 Sep, [facility] [place] [facility] [address] [id number] [place] [address]- 1266 Sep, [facility] [place] [facility] [address] [id number] [place] [address]- 4861 Sep, [facility] [place] [facility] [address] [id number] [place] 7030 Sep, [facility] [place] [facility] [address] [id number], [place] [address]- 2546 Feb, [facility] [id number], [place] [address] 2546 Feb, [facility] [id number], [place] [address]- 2546 July, [facility] [id number], [place] [address]- 2546 Apr, [facility] [id number], [place] [address]- 2546 Apr, [facility] [id number], [place] [address]- 0106 Apr, [facility] [id number] [address] 2546 Apr, IMMUNIZATIONS No Known Immunizations SOCIAL HISTORY Never Assessed REASON FOR VISIT Medication PLAN OF CARE VITAL SIGNS MEDICATIONS Unknown [...] Intubation with ET tube and transferred to [facility] Trach placed 03/2017 Surgical History Defibrillation placed 2017 Surgical History Trach/PEG Tube placed and removed [facility] after Intubation 2017 Hospitalization History ICU for Afib 09/2013 Hospitalization History Admitted to Transferred to Cardiac ICU/ Rehab 03/2017 Hospitalization History Coded, Defribrillated and ET tube placed for ventillation and transferred to [facility] 03/2017
--- OUTSIDE RECORDS SUMMARY | 2018-05-09 18:06 | XMS REPORT ---
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 Active 911726622 Problem Cardiomyopathy I42.9 Active 19825417 Problem 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 I48.2 Active 995414177 Problem Post-cardiac injury syndrome I24.1 Active 04571191 Problem Anoxic brain injury G93.1 Active 816273124 Problem Hypertension I10 Active 52651873 Problem Adjustment disorder with depressed mood F43.21 Active 92043263 Problem Cardiac defibrillator in place Z95.810 Active 210057549 Problem Afib I48.91 Active 98152034 Problem Non-ischemic cardiomyopathy I42.8 Active 83562680 Problem History of cardiac arrest Z86.74 Active 320635890 Problem Current moderate episode of major depressive disorder without prior episode F32.1 Active 25570377 ALLERGIES Substance Reaction Event Type Date Status Penicillin V Potassium Unknown Drug Allergy May, Active ENCOUNTERS Encounter Location Date Diagnosis [facility] [address], [place] [address] Aug, [facility] [id number] [place] [address] 88209- 7435 July, [facility] [id number] [place] [address] 63482- 1701 July, [facility] [id number] [place] [address] 57894- 9054 Jun, Adjustment disorder with depressed mood F43.21 [facility] [id number] [place] [address] 41173- 9750 Jun, [facility] [address], [place] [address] 0498 Jun, [facility] [id number] [place] [address] 06826- 7022 May, [facility] [id number] [place] [address] 51179- 2147 May, [facility] [id number] [place] [address] 20598- 1682 May, [facility] [id number] [place] [address] 05776- 4798 May, [facility] [id number] [place] [address] 24371- 7079 May, History of cardiac arrest Z86.74 ; Cardiac defibrillator in place Z95.810 ; 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 I48.2 and Current moderate episode of major depressive disorder without prior episode F32.1 [facility] [address], [place] [address] 92[address] May, [facility] [id number] [place] [address] 04169- 1131 Mar, 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 [facility] [address] [place] [address] 62768- 9360 Mar, [facility] [address] [place] [address] 90270- 4447 Mar, 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 [facility] [address], [place] [address] 9975 Feb, Afib I48.91 [facility] [id number] [place] [address] 58364- 9882 Feb, 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 [facility] [address], [place] [address] Jan, Other viral agents as the cause of diseases classified elsewhere B97.89 ; Acute upper respiratory infection, unspecified J06.9 and Body aches R52 [facility] [id number] [place] [address] 10784- 7154 Jan, Afib I48.91 [facility] [id number] [place] [address] 57130- 2262 Jan, Afib I48.91 and [facility] (current) use of anticoagulants Z79.01 [facility] [id number] [place] [address] 06208- 1516 Dec, Afib I48.91 [facility] [id number] [place] [address] 05195- 3313 Dec, 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 I48.2 [facility] [id number] [place] [address] 44188- 8869 Nov, Hypertension I10 [facility] [id number] [place] [address] 40205- 8445 Oct, 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 I48.2 [facility] [id number] [place] [address] 13679- 4983 Oct, [facility] (current) use of anticoagulants Z79.01 [facility] [id number] [place] [address] 96258- 6786 Oct, 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 I48.2 [facility] [id number] [place] [address] 16577- 7888 Oct, 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 I48.2 [facility] [id number] [place] [address] 89260- 8214 Sep, 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 ; Hypertension I10 ; Cardiomyopathy I42.9 and Afib I48.91 [facility] [id number] [place] [address] 83212- 8677 Sep, 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 ; Hypertension I10 ; Cardiomyopathy I42.9 and Afib I48.91 [facility] [id number] [place] [address] 44308- 1702 Aug, 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 [facility] [id number] [place] [address] 44553- 2227 Aug, [facility] (current) use of anticoagulants Z79.01 [facility] [address] 69521- 5538 Aug, [facility] (current) use of anticoagulants Z79.01 [facility] [address] 22678- 7371 July, [facility] (current) use of anticoagulants Z79.01 [facility] [id number] [place] [address] 78627- 3685 Jun, [facility] (current) use of anticoagulants Z79.01 [facility] [id number] [place] [address] 19219- 8044 Jun, 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 [facility] [id number] [place] [address] 55391- 1527 May, 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 I48.2 [facility] [id number] [place] [address] 41014- 3253 17 May, 2016 [facility] [id number] [place] [address] 60667- 5859 May, 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 [facility] [address] [place] [address] 04168- 5358 May, 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 [facility] [address] [place] [address] 47744- 0229 May, Afib I48.91 ; Non-ischemic cardiomyopathy I42.8 ; Hypotension, unspecified hypotension type I95.9 and Heart palpitations R00.2 [facility] [address] [place] [address] 35482 2546 16 Apr, 2016 [facility] (current) use of anticoagulants Z79.01 [facility] [id number] [place] [address] 10344 2546 13 Apr, 2016 [facility] (current) use of anticoagulants Z79.01 [facility] [id number] [place] [address] 93019 2546 Mar, 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 [facility] [id number] [place] [address] 83592 2546 Feb, 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 [facility] [id number] [place] [address] 53256 2546 Feb, 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 [facility] [id number] [place] [address] 14170 2546 Jan, [facility] (current) use of anticoagulants Z79.01 [facility] [id number] [place] [address] 42425 2546 Jan, 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 [facility] [id number] [place] [address] 69809 2546 Dec, 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 [facility] [address] [place] [address] 18230 2546 Dec, 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 [facility] [address] [place] [address] 56349 2546 Oct, [facility] (current) use of anticoagulants Z79.01 [facility] [address] [place] [address] 55019 2546 Oct, [facility] (current) use of anticoagulants Z79.01 [facility] [address] [place] [address] 70562- 6856 Oct, Afib I48.91 ; Cardiomyopathy I42.9 ; Palpitations R00.2 and Non-rheumatic tricuspid valve insufficiency I36.1 [facility] [address] [place] [address] 70763- 1347 Sep, 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 I48.2 ; 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 ; Cardiomyopathy I42.9 and Hypertension I10 [facility] [id number] [place] [address] 92565 -5984 Aug, Allergic rhinitis, unspecified allergic rhinitis type J30.9 [facility] [address] 78908- 5613 Aug, [facility] (current) use of anticoagulants Z79.01 [facility] [address] 89266- 9894 Jun, [facility] (current) use of anticoagulants Z79.01 [facility] [address] 27926- 8499 Jun, [facility] (current) use of anticoagulants Z79.01 [facility] [address] [place] [address] 97619- 3451 Jun, [facility] (current) use of anticoagulants Z79.01 [facility] [address] 43212- 4115 Jun, [facility] [address] 08975- 6341 May, Encounter for long-term (current) use of anticoagulants V58.61 [facility] [address] 87642- 8470 May, Encounter for long-term (current) use of anticoagulants V58.61 [facility] [address] [place] [address] 97016- 8847 May, Encounter for long-term (current) use of anticoagulants V58.61 [facility] [address] [place] [address] 78463- 3390 Apr, Encounter for long-term (current) use of anticoagulants V58.61 [facility] [address] [place] [address] 70748- 6140 Apr, [facility] (current) use of anticoagulants Z79.01 [facility] [address] 12326- 7303 Apr, Afib I48.91 ; Hypertension I10 ; Cardiomyopathy I42.9 and Palpitations R00.2 [facility] [address] 84830- 8916 Mar, [facility] (current) use of anticoagulants Z79.01 [facility] [address] 58493- 6982 Mar, Encounter for long-term (current) use of anticoagulants V58.61 [facility] [address] [place] [address] 13244- 1832 Mar, Encounter for long-term (current) use of anticoagulants V58.61 [facility] [address] [place] [address] 23069- 0313 Mar, 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 and Encounter for therapeutic drug level monitoring Z51.81 [facility] [address] [place] [address] 23965- 0419 Feb, [facility] (current) use of anticoagulants Z79.01 and Encounter for therapeutic drug level monitoring Z51.81 [facility] [address] 92675- 3756 Feb, Encounter for long-term (current) use of anticoagulants V58.61 [facility] [address] [place] [address] 89468- 7356 Feb, [facility] [address] [place] [address]- 4524 15 Feb, 2015 Encounter for long-term (current) use of anticoagulants V58.61 [facility] [address] [place] [address] 19587- 4596 Feb, Encounter for therapeutic drug level monitoring Z51.81 [facility] [address] [place] [address] 09048 2546 Jan, [facility] [address] [place] [address] 34357 2541 Dec, Encounter for long-term (current) use of anticoagulants V58.61 and Atrial fibrillation 427.31 [facility] [address] [place] [address] 75466- 5596 Dec, Chest wall muscle strain S29.011A [facility] [address] [place] [address] 72290- 3276 Nov, Encounter for long-term (current) use of anticoagulants V58.61 and Atrial fibrillation 427.31 [facility] [address], [place] [address]- 8586 Nov, Atrial fibrillation 427.31 [facility] [address] [place] [address] 19249 2546 Nov, [facility] [address], [place] [address] 2546 Nov, Atrial fibrillation 427.31 [facility] [address] [place] [address] 90169 2546 Nov, Atrial fibrillation 427.31 [facility] [address] [place] [address] 33317 2541 Oct, Encounter for long-term (current) use of anticoagulants V58.61 [facility] [id number], [place] [address] 2546 Sep, Encounter for long-term (current) use of anticoagulants V58.61 [facility] [address], [place] [address]- 5027 Aug, Encounter for long-term (current) use of anticoagulants V58.61 [facility] [address], [place] [address]- 3543 July, [facility] [address], [place] [address]- 1520 July, [facility] [address], [place] [address]- 5004 July, [facility] [id number], [place] [address]- 8424 Jun, [facility] [address], [place] [address]- 4336 Jun, [facility] [address], [place] [address]- 8095 May, [facility] [address], [place] [address]- 7154 May, [facility] [address], [place] [address]- 5698 May, [facility] [address], [place] [address]- 8960 Apr, [facility] [address], [place] [address]- 3764 Apr, [facility] [id number], [place] [address]- 8860 Apr, [facility] [id number], [place] [address]- 5839 Apr, [facility] [id number], [place] [address]- 5904 Apr, [facility] [address], [place] [address]- 6206 Apr, [facility] [address] [facility] [id number] [place] [address]- 8886 Apr, [facility] [address] [id number] [place] [address]- 3600 Mar, [facility] [place] [facility] [address] [id number] [place] [address]- 6736 Mar, [facility] [address] [id number] [place] [address]- 0593 Mar, [facility] [place] [facility] [address] [id number] [place] [address]- 4154 Mar, [facility] [address] [id number] [place] [address]- 4219 Mar, [facility] [address] [id number] [place] [address]- 8872 Mar, [facility] [address] [id number] [place] [address]- 4673 Mar, [facility] [address] [id number] [place] [address]- 0518 Mar, [facility] [address] [id number] [place] [address]- 2516 Feb, [facility] [address] [id number] [place] [address]- 5903 Feb, [facility] [place] [facility] [address] [id number] [place] [address]- 9309 Feb, [facility] [place] [facility] [address] [id number] [place] [address]- 7267 Feb, [facility] [place] [facility] [address] [id number] [place] [address]- 7150 Feb, [facility] [place] [facility] [address] [id number] [place] [address]- 9406 Feb, [facility] [place] [facility] [address] [id number] [place] [address]- 8962 Jan, [facility] [place] [facility] [address] [id number] [place] [address]- 4266 Jan, [facility] [place] [facility] [address] [id number] [place] [address]- 0237 Jan, [facility] [place] [facility] [address] [id number] [place] [address]- 6849 Jan, [facility] [place] [facility] [address] [id number] [place] [address]- 4982 Jan, [facility] [place] [facility] [address] [id number] [place] [address]- 9410 Jan, [facility] [place] [facility] [address] [id number] [place] [address]- 8204 Dec, [facility] [place] [facility] [address] [id number] [place] [address]- 3235 Dec, [facility] [place] [facility] [address] [id number] [place] [address]- 9257 Dec, [facility] [place] [facility] [address] [id number] [place] [address]- 0411 Dec, [facility] [place] [facility] [address] [id number] [place] [address]- 9390 Nov, [facility] [place] [facility] [address] [id number] [place] [address]- 3842 Nov, [facility] [place] [facility] [address] [id number] [address]- 7230 Oct, [facility] [place] [facility] [address] [id number] [place] [address]- 1593 Oct, [facility] [place] [facility] [address] [id number] [place] [address]- 6587 Oct, [facility] [place] [facility] [address] [id number] [place] [address]- 3596 Oct, [facility] [place] [facility] [address] [id number] [place] [address]- 4764 Oct, [facility] [place] [facility] [address] [id number] [place] [address]- 3820 Oct, [facility] [place] [facility] [address] [id number] [place] [address]- 3747 Sep, [facility] [place] [facility] [address] [id number] [place] [address]- 0587 Sep, [facility] [place] [facility] [address] [id number] [place] [address]- 3520 Sep, [facility] [place] [facility] [address] [id number] [place] [address]- 8997 Sep, [facility] [place] [facility] [address] [id number] [place] [address]- 0623 Sep, [facility] [place] [facility] [address] [id number] [place] [address]- 5226 Sep, [facility] [place] [facility] [address] [id number] [place] [address]- 2105 Sep, [facility] [place] [facility] [address] [id number] [place] [address]- 7599 Sep, [facility] [place] [facility] [address] [id number] [place] [address]- 0982 Sep, [facility] [place] [facility] [address] [id number] [place] [address]- 3982 Sep, [facility] [place] [facility] [address] [id number] [place] [address]- 6998 Sep, [facility] [place] [facility] [address] [id number] [place] [address]- 2636 Sep, [facility] [place] [facility] [address] [id number] [place] [address]- 9267 Sep, [facility] [place] [facility] [address] [id number] [place] 8528 Sep, [facility] [place] [facility] [id number], [place] [address]- 1425 Feb, [facility] [id number], [place] [address]- 4741 Feb, [facility] [address], [place] [address]- 6621 July, [facility] [address], [place] [address]- 7569 Apr, [facility] [address], [place] [address]- 5542 Apr, [facility] [address], [place] [address]- 3768 Apr, [facility] [address], [place] [address]- 3219 Apr, IMMUNIZATIONS No Known Immunizations SOCIAL HISTORY Never Assessed REASON FOR VISIT followup [place], Admitted to on Mar 31 for OH and DC'd May 25 form rehab , stayed in Cardiac ICU[facility] PLAN OF CARE Activity Details Follow Up cardiology as scheduled and family 6 months or prn Reason: VITAL SIGNS Height 64 in 2017-05-30 Weight 194.1 lbs 2017-05-30 Temperature 98.3 degrees Fahrenheit 2017-05-30 Heart Rate 84 bpm 2017-05-30 Respiratory Rate 20 2017-05-30 BMI 33.31 kg/m2 2017-05-30 Blood pressure systolic 126 mmHg 2017-05-30 Blood pressure diastolic 76 mmHg 2017-05-30 MEDICATIONS Medication Instructions Dosage Frequency Start Date End Date Duration Status Metoprolol Succinate ER 50 MG Orally Once a day 1 tablet 24h Active Amiodarone HCl 200 MG Orally Once a day 1 tablet 24h Active Apixaban 5 mg Orally 2 times a day 12h Active Magnesium Oxide 400 mg Orally twice a day 1 tablet as needed 12h Active Melatonin 5 MG Orally Once a day 1 tablet at bedtime as needed with food 24h Active RESULTS No Results PROCEDURES No Known procedures INSTRUCTIONS MEDICATIONS ADMINISTERED No Known Medications MEDICAL (GENERAL) HISTORY Type Description Date Medical History Atrial fibrillation Medical History hx of c. diff Medical History Stress test performed; EF 25% Last test 2015 was at 60% Medical History Palpitations Medical History Cardiac Arrest with CPR and Intubation with ET tube and transferred to [facility] Trach placed 03/2017 Surgical History Defibrillation placed 2017 Surgical History Trach/PEG Tube placed and removed [facility] after Intubation 2017 Hospitalization History ICU for Afib 09/2013 Hospitalization History Admitted to Transferred to Cardiac ICU/ Rehab 03/2017 Hospitalization History Coded, Defribrillated and ET tube placed for ventillation and transferred to [facility] 03/2017
[2018-05-09] MEDS ORDERED: PANT40TA3 (18:07)
[2018-05-09] MEDS ORDERED: SERT50TA9 (18:07)
[2018-05-09] MEDS ORDERED: SACU1TAB (18:07)
--- OUTSIDE RECORDS SUMMARY | 2018-05-09 18:07 | XMS REPORT ---
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 Active 600190594 Problem Cardiomyopathy I42.9 Active 63937411 Problem 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 I48.2 Active 130387019 Problem Post-cardiac injury syndrome I24.1 Active 31320719 Problem Anoxic brain injury G93.1 Active 864215973 Problem Hypertension I10 Active 54545303 Problem Adjustment disorder with depressed mood F43.21 Active 18447243 Problem Cardiac defibrillator in place Z95.810 Active 523433097 Problem Afib I48.91 Active 68872024 Problem Non-ischemic cardiomyopathy I42.8 Active 88329560 Problem History of cardiac arrest Z86.74 Active 333172855 Problem Current moderate episode of major depressive disorder without prior episode F32.1 Active 49343633 ALLERGIES No Information ENCOUNTERS Encounter Location Date Diagnosis [facility] [id number] [place] [address] 21024- 5794 July, [facility] [id number] [place] [address] 12137- 3414 July, [facility] [id number] [place] [address] 82063- 0400 Jun, Adjustment disorder with depressed mood F43.21 [facility] [id number] [place] [address] 99865- 5170 Jun, [facility] [id number] [place] [address] 53735- 4618 Jun, [facility] [id number] [place] [address] 18415- 1352 29 May, 2017 [facility] [id number] [place] [address] 35460- 6870 26 May, 2017 [facility] [id number] [place] [address] 47836- 8683 16 May, 2017 [facility] [id number] [place] [address] 07748- 6738 15 May, 2017 [facility] [id number] [place] [address] 25362- 4888 13 May, 2017 History of cardiac arrest Z86.74 ; Cardiac defibrillator in place Z95.810 ; 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 I48.2 and Current moderate episode of major depressive disorder without prior episode F32.1 [facility] [id number] [place] [address] 63229- 9523 12 May, 2017 [facility] [id number] [place] [address] 87476- 9295 Mar, USP (current) use of anticoagulants Z79.01 [facility] [id number] [place] [address] 07004- 8646 Mar, [facility] [id number] [place] [address] 80521- 5688 Mar, 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 [facility] [id number] [place] [address] 08488- 8924 Feb, Afib I48.91 [facility] [id number] [place] [address] 54598- 1390 Feb, USP (current) use of anticoagulants Z79.01 [facility] [id number] [place] [address] 28373 -6328 Jan, Other viral agents as the cause of diseases classified elsewhere B97.89 ; Acute upper respiratory infection, unspecified J06.9 and Body aches R52 [facility] [address] [place] [address] 4039 Jan, Afib I48.91 [facility] [id number] [place] [address] 93363- 9073 Jan, Afib I48.91 and 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 [facility] [id number] [place] [address] 64717- 0128 Dec, Afib I48.91 [facility] [id number] [place] [address] 19892- 8061 Dec, 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 I48.2 [facility] [id number] [place] [address] 86038- 3940 Nov, Hypertension I10 [facility] [id number] [place] [address] 41644- 3576 Oct, 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 I48.2 [facility] [id number] [place] [address] 97951- 1926 Oct, USP (current) use of anticoagulants Z79.01 [facility] [id number] [place] [address] 67903- 6884 Oct, 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 I48.2 [facility] [id number] [place] [address] 31552- 7587 Oct, 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 I48.2 [facility] [id number] [place] [address] 13582- 4698 Sep, USP (current) use of anticoagulants Z79.01 ; Hypertension I10 ; Cardiomyopathy I42.9 and Afib I48.91 [facility] [id number] [place] [address] 60358- 1205 Sep, 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 ; Hypertension I10 ; Cardiomyopathy I42.9 and Afib I48.91 [facility] [id number] [place] [address] 90263- 9422 Aug, 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 [place] [address] [address]- 5377 Aug, 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 [place] [address] [address]- 7236 Aug, USP (current) use of anticoagulants Z79.01 [facility] [id number] [place] [address] 67130- 5341 July, 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 [facility] [id number] [place] [address] 36959- 2030 Jun, 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 [facility] [id number] [place] [address] 83182- 4027 Jun, 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 [facility] [id number] [place] [address] 67679- 0122 May, 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 I48.2 [facility] [id number] [place] [address] 52947- 1570 May, [facility] [id number] [place] [address] 81302- 8392 May, USP (current) use of anticoagulants Z79.01 [facility] [facility] [id number] [place] [address] 00501- 3789 May, 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 [facility] [facility] [address] [address]- 0532 May, Afib I48.91 ; Non-ischemic cardiomyopathy I42.8 ; Hypotension, unspecified hypotension type I95.9 and Heart palpitations R00.2 [facility] [address] [address]- 5135 16 Apr, 2016 USP (current) use of anticoagulants Z79.01 [facility] [address] [address]- 6527 Apr, 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 [facility] [id number] [place] [address] 758818- 5036 Mar, 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 [facility] [id number] [place] [address] 04842- 7876 Feb, 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 [facility] [id number] [place] [address] 94481- 3136 Feb, 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 [facility] [facility] [id number] [place] [address] 10117- 2094 Jan, USP (current) use of anticoagulants Z79.01 [facility] [id number] [place] [address] 15828- 7822 Jan, USP (current) use of anticoagulants Z79.01 [facility] [facility] [id number] [place] [address] 15289- 4672 Dec, USP (current) use of anticoagulants Z79.01 [facility] [id number] [place] [address] 10095- 6255 Dec, 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 [place] [id number] [place] [address] 41297- 5167 Oct, 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 [facility] [id number] [place] [address] 26706- 5677 Oct, USP (current) use of anticoagulants Z79.01 [place] [address] [place] [address] 83530- 4031 Oct, Afib I48.91 ; Cardiomyopathy I42.9 ; Palpitations R00.2 and Non-rheumatic tricuspid valve insufficiency I36.1 [facility] [address] [place] [address] 66373- 0470 Sep, 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 I48.2 ; USP (current) use of anticoagulants Z79.01 ; Cardiomyopathy I42.9 and Hypertension I10 [facility] [id number] [place] [address] 47924 -4409 Aug, Allergic rhinitis, unspecified allergic rhinitis type J30.9 [facility] [id number] [place] [address] 15895- 9244 Aug, 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 [facility] [facility] [id number] [place] [address] 72162- 9131 Jun, USP (current) use of anticoagulants Z79.01 [facility] [id number] [place] [address] 72128- 3729 Jun, USP (current) use of anticoagulants Z79.01 [facility] [id number] [place] [address] 85545- 4348 Jun, 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 [facility] [id number] [place] [address] 13676- 9272 Jun, [facility] [id number] [place] [address] 48738- 3363 May, Encounter for long-term (current) use of anticoagulants V58.61 [facility] [id number] [place] [address] 92963- 2540 May, Encounter for long-term (current) use of anticoagulants V58.61 [facility] [id number] [place] [address] 90650- 7296 May, Encounter for long-term (current) use of anticoagulants V58.61 [facility] [address] [place] [address] 45944- 0835 Apr, Encounter for long-term (current) use of anticoagulants V58.61 [facility] [id number] [place] [address] 37523- 0711 Apr, 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 [facility] [id number] [place] [address] 95662- 8665 Apr, Afib I48.91 ; Hypertension I10 ; Cardiomyopathy I42.9 and Palpitations R00.2 [place] [address] 30609- 0992 Mar, 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 33785- 3099 Mar, Encounter for long-term (current) use of anticoagulants V58.[address] 70244- 4897 Mar, Encounter for long-term (current) use of anticoagulants V58.61 [facility] [id number] [place] [address] 75255- 7754 Mar, 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 and Encounter for therapeutic drug level monitoring Z51.81 [facility] [id number] [place] [address] 65150- 0286 Feb, USP (current) use of anticoagulants Z79.01 and Encounter for therapeutic drug level monitoring Z51.81 [facility] [id number] [place] [address] 07011- 5806 Feb, Encounter for long-term (current) use of anticoagulants V58.61 [facility] [id number] [place] [address] 80393- 7856 Feb, [place] [id number] [place] [address] 76724- 2729 Feb, Encounter for long-term (current) use of anticoagulants V58.61 [facility] [facility] [address] [place] [address]- 0439 Feb, Encounter for therapeutic drug level monitoring Z51.81 [facility] [id number] [place] [address] 58897- 6606 Jan, [facility] [id number] [place] [address] 08306- 2540 Dec, Encounter for long-term (current) use of anticoagulants V58.61 and Atrial fibrillation 427.31 [facility] [id number] [place] [address] 31285- 1636 Dec, Chest wall muscle strain S29.011A [facility] [id number] [place] [address] 41423- 0036 Nov, Encounter for long-term (current) use of anticoagulants V58.61 and Atrial fibrillation 427.31 [facility] [facility] [id number] [place] [address] 53448- 9399 Nov, Atrial fibrillation 427.31 [facility] [id number] [place] [address] 90204 254 Nov, [facility] [id number] [place] [address] 84383 2542 Nov, Atrial fibrillation 427.31 [place] [address] [place] [address] 68579- 8500 Nov, Atrial fibrillation 427.31 [place] [address] [place] [address] 71714 2540 Oct, Encounter for long-term (current) use of anticoagulants V58.61 [place] [address] [place] [address] 97053 2546 Sep, Encounter for long-term (current) use of anticoagulants V58.61 [place] [address] [place] [address] 78434 2546 Aug, Encounter for long-term (current) use of anticoagulants V58.61 [facility] [address] [address]- 7191 July, [facility] [place] [facility] [address] [id number] [place] [address]- 2371 July, [facility] [place] [facility] [address] [id number] [place] [address]- 6347 July, [facility] [place] [facility] [address] [id number] [place] [address]- 4858 Jun, [facility] [place] [facility] [address] [id number] [place] [address]- 6234 Jun, [facility] [place] [facility] [address] [id number] [place] [address]- 5315 May, [facility] [place] [facility] [address] [facility] [id number] [place] [address]- 9230 May, [facility] [place] [facility] [address] [facility] [id number] [place] [address]- 8874 May, [facility] [place] [facility] [address] [facility] [id number] [place] [address]- 7138 Apr, [facility] [place] [facility] [id number] [place] [address]- 1994 Apr, [facility] [place] [facility] [address] [facility] [id number] [place] [address]- 2563 Apr, [facility] [place] [facility] [address] [facility] [id number] [place] [address]- 4854 Apr, [facility] [place] [facility] [address] [facility] [id number] [place] [address]- 9277 Apr, [facility] [place] [facility] [address] [id number] [place] 4293 Apr, [facility] [place] [facility] [address] [facility] [id number] [place] [address]- 6162 Apr, [facility] [place] [facility] [address] [address]- 0376 Mar, [facility] [place] [facility] [address] [id number] [place] [address]- 7956 Mar, [facility] [place] [facility] [address] [id number] [place] [address]- 1180 Mar, [facility] [place] [facility] [address] [id number] [place] [address]- 6851 Mar, [facility] [place] [facility] [address] [id number] [place] [address]- 2015 Mar, [facility] [place] [facility] [address] [id number] [place] [address]- 4434 Mar, [facility] [place] [facility] [address] [id number] [place] [address]- 2085 Mar, [facility] [place] [facility] [address] [id number] [place] [address]- 9064 Mar, [facility] [place] [facility] [address] [id number] [place] [address]- 6229 Feb, [facility] [place] [facility] [address] [id number] [place] [address]- 4527 Feb, [facility] [place] [facility] [address] [id number] [place] [address]- 1572 Feb, [facility] [place] [facility] [address] [id number] [place] [address]- 1540 Feb, [facility] [place] [facility] [address] [id number] [address]- 8695 Feb, [facility] [place] [facility] [address] [id number] [place] [address]- 2872 Feb, [facility] [place] [facility] [address] [id number] [place] [address]- 6617 Jan, [facility] [place] [facility] [address] [id number] [place] [address]- 4884 Jan, [facility] [place] [facility] [address] [id number] [place] [address]- 5496 Jan, [facility] [place] [facility] [address] [id number] [place] [address]- 8649 Jan, [facility] [place] [facility] [address] [id number] [place] [address]- 8014 Jan, [facility] [place] [facility] [address] [id number] [place] [address]- 2091 Jan, [facility] [place] [facility] [address] [id number] [place] [address]- 6377 Dec, [facility] [place] [facility] [address] [id number] [place] [address]- 0101 Dec, [facility] [place] [facility] [address] [id number] [place] [address]- 8036 Dec, [facility] [place] [facility] [address] [id number] [place] [address]- 2080 Dec, [facility] [place] [facility] [address] [id number] [place] [address]- 1566 Nov, [facility] [place] [facility] [address] [id number] [place] [address]- 7625 Nov, [facility] [place] [facility] [address] [id number] [place] [address]- 8173 Oct, [facility] [place] [facility] [address] [id number] [place] [address]- 1021 Oct, [facility] [place] [facility] [address] [id number] [place] [address]- 9863 Oct, [facility] [place] [facility] [address] [id number] [place] [address]- 9668 Oct, [facility] [place] [facility] [address] [id number] [place] [address]- 4384 Oct, [facility] [place] [facility] [address] [id number] [place] [address]- 4132 Oct, [facility] [place] [facility] [address] [id number] [place] [address]- 5297 Sep, [facility] [place] [facility] [address] [id number] [place] [address]- 8036 Sep, [facility] [place] [facility] [address] [id number] [place] [address]- 7330 Sep, [facility] [place] [facility] [address] [id number] [place] [address]- 3135 Sep, [facility] [place] [facility] [address] [id number] [place] [address]- 3839 Sep, [facility] [place] [facility] [address] [id number] [place] [address]- 1564 Sep, [facility] [place] [facility] [address] [id number] [place] [address]- 8769 Sep, [facility] [place] [facility] [address] [id number] [place] [address]- 5065 Sep, [facility] [place] [facility] [address] [id number] [place] [address]- 5067 Sep, [facility] [place] [facility] [address] [id number] [place] [address]- 8023 Sep, [facility] [place] [facility] [address] [id number] [place] [address]- 0814 Sep, [facility] [place] [facility] [address] [id number] [place] [address]- 1932 Sep, [facility] [place] [facility] [address] [id number] [place] [address]- 6885 Sep, [facility] [place] [facility] [address] [id number] [place] [address]- 4712 Sep, [facility] [place] [facility] [address] [id number] [place] [address]- 8566 Feb, [facility] [place] [facility] [address] [id number] [place] [address]- 2546 Feb, [facility] [address] [facility] [id number] [place] [address]- 2546 July, [facility] [id number] [address]- 2546 Apr, [facility] [id number] [address]- 2546 Apr, [facility] [id number] [address]- 2546 Apr, [facility] [address] [facility] [id number] [place] [address]- 2546 Apr, IMMUNIZATIONS No Known Immunizations SOCIAL HISTORY Never Assessed REASON FOR VISIT Deferred Lab order PLAN OF CARE VITAL SIGNS MEDICATIONS Unknown [...] Intubation with ET tube and transferred to [facility] Trach placed 03/2017 Surgical History Defibrillation placed 2017 Surgical History Trach/PEG Tube placed and removed [facility] after Intubation 2018 Hospitalization History ICU for Afib 09/2013 Hospitalization History Admitted to Transferred to Cardiac ICU/ Rehab 03/2017 Hospitalization History Coded, Defribrillated and ET tube placed for ventillation and transferred to [facility] 03/2017
--- OUTSIDE RECORDS SUMMARY | 2018-05-09 18:07 | XMS REPORT ---
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 631924102 Problem Cardiomyopathy I42.9 Active 33345471 Problem 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 I48.2 Active 718767021 Problem Post-cardiac injury syndrome I24.1 Active 83967630 Problem Anoxic brain injury G93.1 Active 646720068 Problem Hypertension I10 Active 55612161 Problem Adjustment disorder with depressed mood F43.21 Active 35424501 Problem Cardiac defibrillator in place Z95.810 Active 080917835 Problem Afib I48.91 Active 55240659 Problem Non-ischemic cardiomyopathy I42.8 Active 86124381 Problem History of cardiac arrest Z86.74 Active 230858788 Problem Current moderate episode of major depressive disorder without prior episode F32.1 Active 30124337 ALLERGIES No Information ENCOUNTERS Encounter Location Date Diagnosis [facility] [id number] [place] [address] 05225- 3626 July, [facility] [id number] [place] [address] 15115- 2752 July, [facility] [id number] [place] [address] 93999- 8222 Jun, Adjustment disorder with depressed mood F43.21 [facility] [id number] [place] [address] 84778- 7186 Jun, [facility] [id number] [place] [address] 61989- 8644 Jun, [facility] [id number] [place] [address] 31994- 2389 29 May, 2017 [facility] [id number] [place] [address] 89309- 6671 26 May, 2017 [facility] [id number] [place] [address] 11682- 6771 16 May, 2017 [facility] [id number] [place] [address] 85064- 9190 15 May, 2017 [facility] [id number] [place] [address] 22615- 8925 13 May, 2017 History of cardiac arrest Z86.74 ; Cardiac defibrillator in place Z95.810 ; 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 I48.2 and Current moderate episode of major depressive disorder without prior episode F32.1 [facility] [id number] [place] [address] 29839- 1558 12 May, 2017 [facility] [id number] [place] [address] 95498- 8263 Mar, USP (current) use of anticoagulants Z79.01 [facility] [id number] [place] [address] 01453- 2032 Mar, [facility] [id number] [place] [address] 06070- 1073 Mar, 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 [facility] [id number] [place] [address] 83284- 8267 Feb, Afib I48.91 [facility] [id number] [place] [address] 18618- 4385 Feb, USP (current) use of anticoagulants Z79.01 [facility] [id number] [place] [address] 39602 -3802 Jan, Other viral agents as the cause of diseases classified elsewhere B97.89 ; Acute upper respiratory infection, unspecified J06.9 and Body aches R52 [place] [address] [place] [address] 0073 Jan, Afib I48.91 [facility] [id number] [place] [address] 38569- 9238 Jan, Afib I48.91 and 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 [facility] [id number] [place] [address] 62974- 9827 Dec, Afib I48.91 [facility] [id number] [place] [address] 40818- 3635 Dec, 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 I48.2 [facility] [id number] [place] [address] 00977- 2991 Nov, Hypertension I10 [facility] [id number] [place] [address] 17218- 5178 Oct, 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 I48.2 [facility] [id number] [place] [address] 91215- 9113 Oct, USP (current) use of anticoagulants Z79.01 [facility] [id number] [place] [address] 96925- 0790 Oct, 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 I48.2 [facility] [id number] [place] [address] 45354- 9702 Oct, 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 I48.2 [facility] [id number] [place] [address] 23705- 5110 Sep, USP (current) use of anticoagulants Z79.01 ; Hypertension I10 ; Cardiomyopathy I42.9 and Afib I48.91 [facility] [id number] [place] [address] 43763- 0142 Sep, 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 ; Hypertension I10 ; Cardiomyopathy I42.9 and Afib I48.91 [facility] [id number] [place] [address] 14414- 6538 Aug, 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 [place] [address] [address]- 6635 Aug, 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 [place] [address] [address]- 0446 Aug, USP (current) use of anticoagulants Z79.01 [facility] [id number] [place] [address] 08511- 4491 July, 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 [place] [address] [place] [address] 61694- 8548 Jun, 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 [facility] [place] [id number] [place] [address] 98815- 2334 Jun, 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 [facility] [place] [id number] [place] [address] 82964- 7867 May, 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 I48.2 [facility] [id number] [place] [address] 95162- 7995 May, [facility] [id number] [place] [address] 05584- 3160 May, USP (current) use of anticoagulants Z79.01 [place] [address] [place] [address] 61548- 6491 May, 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 [place] [address] [address]- 3969 May, Afib I48.91 ; Non-ischemic cardiomyopathy I42.8 ; Hypotension, unspecified hypotension type I95.9 and Heart palpitations R00.2 [facility] [facility] [address] [address]- 8771 16 Apr, 2016 USP (current) use of anticoagulants Z79.01 [facility] [address] [address]- 7728 Apr, 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 [facility] [address] [place] [address] 591182- 9606 Mar, 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 [facility] [place] [id number] [place] [address] 91239- 8676 Feb, 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 [facility] [id number] [place] [address] 46709- 2446 Feb, 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 [facility] [id number] [place] [address] 12272- 2969 Jan, USP (current) use of anticoagulants Z79.01 [facility] [id number] [place] [address] 95562- 1729 Jan, USP (current) use of anticoagulants Z79.01 [facility] [id number] [place] [address] 00497- 7716 Dec, USP (current) use of anticoagulants Z79.01 [facility] [id number] [place] [address] 39357- 8157 Dec, 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 [place] [address] [place] [address] 17092- 1480 Oct, 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 [facility] [id number] [place] [address] 37339- 5352 Oct, USP (current) use of anticoagulants Z79.01 [place] [address] [place] [address] 63218- 1496 Oct, Afib I48.91 ; Cardiomyopathy I42.9 ; Palpitations R00.2 and Non-rheumatic tricuspid valve insufficiency I36.1 [place] [address] [place] [address] 93180- 9440 Sep, 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 I48.2 ; USP (current) use of anticoagulants Z79.01 ; Cardiomyopathy I42.9 and Hypertension I10 [facility] [address] [place] [address] 66339 -8589 Aug, Allergic rhinitis, unspecified allergic rhinitis type J30.9 [facility] [id number] [place] [address] 50463- 2704 Aug, 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 [place] [id number] [place] [address] 31459- 7612 Jun, USP (current) use of anticoagulants Z79.01 [facility] [id number] [place] [address] 74045- 1614 Jun, USP (current) use of anticoagulants Z79.01 [facility] [id number] [place] [address] 67261- 0350 Jun, 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 [facility] [id number] [place] [address] 10296- 0540 Jun, [facility] [id number] [place] [address] 38790- 2612 May, Encounter for long-term (current) use of anticoagulants V58.61 [facility] [id number] [place] [address] 15606- 2547 May, Encounter for long-term (current) use of anticoagulants V58.61 [facility] [id number] [place] [address] 88622- 7031 May, Encounter for long-term (current) use of anticoagulants V58.61 [facility] [address] [place] [address] 43619- 5030 Apr, Encounter for long-term (current) use of anticoagulants V58.61 [facility] [id number] [place] [address] 99440- 1608 Apr, 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 [facility] [id number] [place] [address] 82756- 4634 Apr, Afib I48.91 ; Hypertension I10 ; Cardiomyopathy I42.9 and Palpitations R00.2 [place] [address] 16734- 7626 Mar, 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 98742- 9835 Mar, Encounter for long-term (current) use of anticoagulants V58.[address] 04141- 6182 Mar, Encounter for long-term (current) use of anticoagulants V58.61 [facility] [id number] [place] [address] 14052- 8866 Mar, 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 and Encounter for therapeutic drug level monitoring Z51.81 [facility] [id number] [place] [address] 88660- 5649 Feb, USP (current) use of anticoagulants Z79.01 and Encounter for therapeutic drug level monitoring Z51.81 [facility] [facility] [id number] [place] [address] 62599- 5259 Feb, Encounter for long-term (current) use of anticoagulants V58.61 [facility] [id number] [place] [address] 76018- 9726 Feb, [place] [id number] [place] [address] 41282- 8522 Feb, Encounter for long-term (current) use of anticoagulants V58.61 [place] [address] [place] [address]- 1684 Feb, Encounter for therapeutic drug level monitoring Z51.81 [place] [id number] [place] [address] 49023- 2136 Jan, [place] [id number] [place] [address] 95976- 2549 Dec, Encounter for long-term (current) use of anticoagulants V58.61 and Atrial fibrillation 427.31 [place] [id number] [place] [address] 00091- 2636 Dec, Chest wall muscle strain S29.011A [facility] [id number] [place] [address] 67555- 9296 Nov, Encounter for long-term (current) use of anticoagulants V58.61 and Atrial fibrillation 427.31 [place] [id number] [place] [address] 90327- 0807 Nov, Atrial fibrillation 427.31 [facility] [place] [id number] [place] [address] 51948 2547 Nov, [facility] [id number] [place] [address] 48926 254 Nov, Atrial fibrillation 427.31 [place] [address] [place] [address] 32467- 1262 Nov, Atrial fibrillation 427.31 [place] [address] [place] [address] 14643 2549 Oct, Encounter for long-term (current) use of anticoagulants V58.61 [place] [address] [place] [address] 60018 2546 Sep, Encounter for long-term (current) use of anticoagulants V58.61 [place] [address] [place] [address] 05152 2546 Aug, Encounter for long-term (current) use of anticoagulants V58.61 [place] [address] [place] [address]- 6502 July, [facility] [place] [facility] [address] [id number] [place] [address]- 1533 July, [facility] [place] [facility] [address] [id number] [place] [address]- 5258 July, [facility] [place] [facility] [address] [id number] [place] [address]- 6597 Jun, [facility] [place] [facility] [address] [id number] [place] [address]- 2775 Jun, [facility] [place] [facility] [address] [id number] [place] [address]- 5686 May, [facility] [place] [facility] [address] [facility] [id number] [place] [address]- 5543 May, [facility] [place] [facility] [address] [facility] [id number] [place] [address]- 0162 May, [facility] [place] [facility] [address] [facility] [id number] [place] [address]- 8393 Apr, [facility] [place] [facility] [id number] [place] [address]- 5012 Apr, [facility] [place] [facility] [address] [facility] [id number] [place] [address]- 0825 Apr, [facility] [place] [facility] [address] [facility] [id number] [place] [address]- 8680 Apr, [facility] [place] [facility] [address] [facility] [id number] [place] [address]- 0597 Apr, [facility] [place] [facility] [address] [id number] [place] 6567 Apr, [facility] [place] [facility] [address] [facility] [id number] [place] [address]- 2921 Apr, [facility] [place] [facility] [address] [place] [address]- 6356 Mar, [facility] [place] [facility] [address] [id number] [place] [address]- 3675 Mar, [facility] [place] [facility] [address] [id number] [place] [address]- 9545 Mar, [facility] [place] [facility] [address] [id number] [place] [address]- 1530 Mar, [facility] [place] [facility] [address] [id number] [place] [address]- 3262 Mar, [facility] [place] [facility] [address] [id number] [place] [address]- 1788 Mar, [facility] [place] [facility] [address] [id number] [place] [address]- 7247 Mar, [facility] [place] [facility] [address] [id number] [place] [address]- 4378 Mar, [facility] [place] [facility] [address] [id number] [place] [address]- 4773 Feb, [facility] [place] [facility] [address] [id number] [place] [address]- 2557 Feb, [facility] [place] [facility] [address] [id number] [place] [address]- 0970 Feb, [facility] [place] [facility] [address] [id number] [place] [address]- 0636 Feb, [facility] [place] [facility] [address] [id number], [place] [address]- 0235 Feb, [facility] [place] [facility] [address] [id number] [place] [address]- 8364 Feb, [facility] [place] [facility] [address] [id number] [place] [address]- 6904 Jan, [facility] [place] [facility] [address] [id number] [place] [address]- 8168 Jan, [facility] [place] [facility] [address] [id number] [place] [address]- 9556 Jan, [facility] [place] [facility] [address] [id number] [place] [address]- 2316 Jan, [facility] [place] [facility] [address] [id number] [place] [address]- 1319 Jan, [facility] [place] [facility] [address] [id number] [place] [address]- 7993 Jan, [facility] [place] [facility] [address] [id number] [place] [address]- 1696 Dec, [facility] [place] [facility] [address] [id number] [place] [address]- 0969 Dec, [facility] [place] [facility] [address] [id number] [place] [address]- 0470 Dec, [facility] [place] [facility] [address] [id number] [place] [address]- 0364 Dec, [facility] [place] [facility] [address] [id number] [place] [address]- 8845 Nov, [facility] [place] [facility] [address] [id number] [place] [address]- 1468 Nov, [facility] [place] [facility] [address] [id number] [place] [address]- 0547 Oct, [facility] [place] [facility] [address] [id number] [place] [address]- 6978 Oct, [facility] [place] [facility] [address] [id number] [place] [address]- 6758 Oct, [facility] [place] [facility] [address] [id number] [place] [address]- 0854 Oct, [facility] [place] [facility] [address] [id number] [place] [address]- 2257 Oct, [facility] [place] [facility] [address] [id number] [place] [address]- 7183 Oct, [facility] [place] [facility] [address] [id number] [place] [address]- 7143 Sep, [facility] [place] [facility] [address] [id number] [place] [address]- 9246 Sep, [facility] [place] [facility] [address] [id number] [place] [address]- 0803 Sep, [facility] [place] [facility] [address] [id number] [place] [address]- 3270 Sep, [facility] [place] [facility] [address] [id number] [place] [address]- 5289 Sep, [facility] [place] [facility] [address] [id number] [place] [address]- 5141 Sep, [facility] [place] [facility] [address] [id number] [place] [address]- 2502 Sep, [facility] [place] [facility] [address] [id number] [place] [address]- 9253 Sep, [facility] [place] [facility] [address] [id number] [place] [address]- 8338 Sep, [facility] [place] [facility] [address] [id number] [place] [address]- 1281 Sep, [facility] [place] [facility] [address] [id number] [place] [address]- 7746 Sep, [facility] [place] [facility] [address] [id number] [place] [address]- 2605 Sep, [facility] [place] [facility] [address] [id number] [place] [address]- 5003 Sep, [facility] [place] [facility] [address] [id number] [place] [address]- 8408 Sep, [facility] [place] [facility] [address] [id number] [place] [address]- 5973 Feb, [facility] [place] [facility] [address] [id number], [place] [address]- 2546 Feb, [facility] [address] [facility] [id number], [place] [address]- 2546 July, [facility] [address] [facility] [id number], [place] [address]- 2546 Apr, [facility] [address] [facility] [id number], [place] [address]- 2546 Apr, [facility] [address] [facility] [id number][place] [address]- 2546 Apr, [facility] [address] [facility] [id number], [place] [address]- 2546 Apr, IMMUNIZATIONS No Known Immunizations SOCIAL HISTORY Never Assessed REASON FOR VISIT Lab (walk-in) PLAN OF CARE VITAL SIGNS MEDICATIONS Unknown Medications RESULTS Name Result Date Reference Range INR (IN HOUSE) 2017-02-24 INR 2.4 1.10 - 3.30 PREVIOUS INR 2.6 CURRENT COUMADIN DOSE NEW COUMADIN DOSE Lot # [id number] Exp date 07/2017 PROCEDURES Procedure Date Ordered Result Body Site PROTHROMBIN TIME Feb 24, 2017 INSTRUCTIONS MEDICATIONS ADMINISTERED No Known Medications MEDICAL (GENERAL) HISTORY Type Description Date Medical History Atrial fibrillation Medical History hx of c. diff Medical History Stress test performed; EF 25% Last test 2016 was at 60% Medical History Palpitations Medical History Cardiac Arrest with CPR and Intubation with ET tube and transferred to [facility] Trach placed 03/2017 Surgical History Defibrillation placed 2017 Surgical History Trach/PEG Tube placed and removed [facility] after Intubation 2018 Hospitalization History ICU for Afib 09/2013 Hospitalization History Admitted to Transferred to Cardiac ICU/ Rehab 03/2017 Hospitalization History Coded, Defribrillated and ET tube placed for ventillation and transferred to [facility] 03/2017
[2018-05-09] MEDS ORDERED: APIX5TAB PO (18:08)
--- OUTSIDE RECORDS SUMMARY | 2018-05-09 18:08 | XMS REPORT ---
Author Author KARI AMADOR [facility] Address [address] [place] [address] Care Team Providers Care Product Steward Name Role Phone KARI AMADOR Unavailable PROBLEMS Type Condition ICD9-CM Code [id number] Code Onset Dates Condition Status SNOMED Code Problem Hypertension I10 Active 59389343 Problem shelter (current) use of anticoagulants Z79.01 Active 934043449 Problem Cardiomyopathy I42.9 Active 98935646 Problem Cardiac defibrillator in place Z95.810 Active 148439727 Problem History of cardiac arrest Z86.74 Active 178071296 Problem Non-ischemic cardiomyopathy I42.8 Active 21167908 Problem 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 I48.2 Active 930865340 Problem Current moderate episode of major depressive disorder without prior episode F32.1 Active 44614742 Problem Afib I48.91 Active 07450699 ALLERGIES No Information ENCOUNTERS Encounter Location Date Diagnosis [place] [id number] [place] [address] 94983- 5752 Jun, [facility] [place] [facility] [id number] [place] [address] 97268- 3220 May, [facility] [place] [facility] [id number] [place] [address] 02363- 5313 May, [facility] [place] [facility] [id number] [place] [address] 59692- 0415 16 May, 2017 [facility] [place] [facility] [id number] [place] [address] 14769- 2196 15 May, 2017 [facility] [place] [facility] [id number] [place] [address] 98064- 3247 13 May, 2017 History of cardiac arrest Z86.74 ; Cardiac defibrillator in place Z95.810 ; 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 I48.2 and Current moderate episode of major depressive disorder without prior episode F32.1 [facility] [place] [facility] [address] [address] 3853 May, [facility] [place] [facility] [address] [address] 9038 Mar, 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 [facility] [place] [facility] [address], [place] [address]- 5612 Mar, [place] [id number] [place] [address] 51663- 5822 Mar, 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 [place] [id number] [place] [address] 00190- 8685 Feb, Afib I48.91 [place] [id number] [place] [address] 35036- 1388 Feb, shelter (current) use of anticoagulants Z79.01 [facility] [address] [address] Jan, Other viral agents as the cause of diseases classified elsewhere B97.89 ; Acute upper respiratory infection, unspecified J06.9 and Body aches R52 [place] [address], [place] [address]- 9083 Jan, Afib I48.91 [place] [id number] [place] [address] 76009- 7755 Jan, Afib I48.91 and shelter (current) use of anticoagulants Z79.01 [place] [address], [place] [address]- 6765 Dec, Afib I48.91 [place] [id number] [place] [address] 84409- 0537 Dec, 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 I48.2 [place] [id number] [place] [address] 57584- 6737 Nov, Hypertension I10 [place] [id number] [place] [address] 87705- 2979 Oct, 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 I48.2 [place] [id number] [place] [address] 59868- 8451 Oct, shelter (current) use of anticoagulants Z79.01 [place] [id number] [place] [address] 97282- 1773 Oct, 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 I48.2 [place] [id number] [place] [address] 76361- 3309 Oct, 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 I48.2 [place] [id number] [place] [address] 04937- 3287 Sep, 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 ; Hypertension I10 ; Cardiomyopathy I42.9 and Afib I48.91 [place] [id number] [place] [address] 17081- 3734 Sep, shelter (current) use of anticoagulants Z79.01 ; Hypertension I10 ; Cardiomyopathy I42.9 and Afib I48.91 [place] [id number] [place] [address] 89835- 5264 Aug, shelter (current) use of anticoagulants Z79.01 [place] [id number] [place] [address] 67319- 8405 Aug, shelter (current) use of anticoagulants Z79.01 [place] [id number] [place] [address] 53318- 3544 Aug, 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 [place] [id number] [place] [address] 15473- 6604 July, 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 [place] [id number] [place] [address] 91309- 0923 Jun, 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 [place] [address], [place] [address]- 3174 Jun, 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 [place] [address], [place] [address]- 1060 20 May, 2016 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 I48.2 [place] [id number] [place] [address] 76355- 1895 17 May, 2016 [place] [id number] [place] [address] 04514- 5113 13 May, 2016 shelter (current) use of anticoagulants Z79.01 [place] [id number] [place] [address] 04015- 5531 10 May, 2016 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 [place] [id number] [place] [address] 72563- 7448 May, Afib I48.91 ; Non-ischemic cardiomyopathy I42.8 ; Hypotension, unspecified hypotension type I95.9 and Heart palpitations R00.2 [place] [id number] [place] [address] 18567- 9437 16 Apr, 2016 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 [place] [address] [place] [address] 42152- 7119 Apr, 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 [place] [address] [place] [address] 88330- 2033 Mar, shelter (current) use of anticoagulants Z79.01 [place] [id number] [place] [address] 00309- 5278 Feb, 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 [place] [address], [place] [address]- 1281 Feb, 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 [place] [address], [place] [address]- 3951 Jan, shelter (current) use of anticoagulants Z79.01 [facility] [place] [facility] [id number] [place] [address] 11671- 5487 Jan, 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 [place] [id number] [place] [address] 22690- 4642 Dec, 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 [place] [id number] [place] [address] 74625- 1826 Dec, shelter (current) use of anticoagulants Z79.01 [place] [id number] [place] [address] 91711- 9029 Oct, 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 [place] [id number] [place] [address] 66526- 4891 Oct, 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 [place] [id number] [place] [address] 47116- 5809 Oct, Afib I48.91 ; Cardiomyopathy I42.9 ; Palpitations R00.2 and Non-rheumatic tricuspid valve insufficiency I36.1 [place] [id number] [place] [address] 40353- 3789 Sep, 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 I48.2 ; 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 ; Cardiomyopathy I42.9 and Hypertension I10 [facility] [id number] [place] [address] 83270 -3649 Aug, Allergic rhinitis, unspecified allergic rhinitis type J30.9 [facility] [id number] [place] [address] 32938- 4139 Aug, 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 [place] [id number] [place] [address] 03855- 3794 Jun, 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 [place] [id number] [place] [address] 47266- 8722 Jun, shelter (current) use of anticoagulants Z79.01 [place] [id number] [place] [address] 80957- 4846 Jun, shelter (current) use of anticoagulants Z79.01 [place] [id number] [place] [address] 36935- 8756 Jun, [place] [id number] [place] [address] 81502- 6533 May, Encounter for long-term (current) use of anticoagulants V58.61 [place] [id number] [place] [address] 54058- 2554 May, Encounter for long-term (current) use of anticoagulants V58.61 [place] [id number] [place] [address] 31742- 3815 May, Encounter for long-term (current) use of anticoagulants V58.61 [place] [id number] [place] [address] 04710- 7611 Apr, Encounter for long-term (current) use of anticoagulants V58.61 [place] [id number] [place] [address] 53930- 3901 Apr, 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 [place] [id number] [place] [address] 79064- 9364 Apr, Afib I48.91 ; Hypertension I10 ; Cardiomyopathy I42.9 and Palpitations R00.2 [place] [id number] [place] [address] 63022- 3577 Mar, 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 [place] [address] 88866- 7883 Mar, Encounter for long-term (current) use of anticoagulants V58.61 [place] [address] [place] [address] 34907- 0736 Mar, Encounter for long-term (current) use of anticoagulants V58.61 [place] [address] [place] [address] 17657- 3619 Mar, 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 and Encounter for therapeutic drug level monitoring Z51.81 [place] [id number] [place] [address] 33767- 4142 Feb, 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 and Encounter for therapeutic drug level monitoring Z51.81 [place] [id number] [place] [address] 05563- 6241 Feb, Encounter for long-term (current) use of anticoagulants V58.61 [place] [id number] [place] [address] 59390- 4444 Feb, [place] [id number] [place] [address] 35388- 7120 Feb, Encounter for long-term (current) use of anticoagulants V58.61 [place] [address] [place] [address] 10574- 0355 Feb, Encounter for therapeutic drug level monitoring Z51.81 [place] [address] [place] [address] 14376- 7902 Jan, [place] [address] [place] [address] 78644- 0281 Dec, Encounter for long-term (current) use of anticoagulants V58.61 and Atrial fibrillation 427.31 [place] [address] [place] [address] 62277- 4153 Dec, Chest wall muscle strain S29.011A [place] [id number] [place] [address] 34988- 9431 Nov, Encounter for long-term (current) use of anticoagulants V58.61 and Atrial fibrillation 427.31 [place] [address], [place] [address]- 9936 Nov, Atrial fibrillation 427.31 [facility] [facility] [address], [place] [address] 2546 Nov, [facility] [facility] [id number] [place] [address] 22527 2546 Nov, Atrial fibrillation 427.31 [place] [id number] [place] [address] 15787- 2546 Nov, Atrial fibrillation 427.31 [place] [id number] [place] [address] 72486 2546 Oct, Encounter for long-term (current) use of anticoagulants V58.61 [place] [address] [place] [address] 27154- 5956 Sep, Encounter for long-term (current) use of anticoagulants V58.61 [place] [address] [place] [address] 48200- 2546 Aug, Encounter for long-term (current) use of anticoagulants V58.61 [place] [address], [place] [address]- 2546 July, [place] [address], [place] [address]- 2546 July, [place] [address], [place] [address]- 2546 July, [place] [address] [place] [address] 67922- 2546 Jun, [place] [address], [place] [address]- 2546 Jun, [place] [address] [place] [address] 25017- 7458 May, [facility] [place] [facility] [address] [id number] [place] [address]- 4890 May, [facility] [place] [facility] [address] [id number] [place] [address]- 8678 May, [facility] [place] [facility] [address] [id number] [place] [address]- 9913 Apr, [facility] [place] [facility] [address] [id number] [place] [address]- 7421 Apr, 2014 [facility] [place] [facility] [address] [id number] [place] [address]- 4713 Apr, [facility] [place] [facility] [address] [id number] [place] [address]- 3751 Apr, 2014 [facility] [place] [facility] [address] [id number] [place] [address]- 3769 Apr, [facility] [place] [facility] [address] [id number] [place] [address]- 1989 Apr, [facility] [place] [facility] [address] [id number] [place] [address]- 0176 Apr, [facility] [place] [facility] [address] [id number] [place] [address]- 2016 Mar, [facility] [place] [facility] [address] [id number] [place] [address]- 9698 Mar, [facility] [place] [facility] [address] [id number] [place] [address]- 4546 Mar, [facility] [place] [facility] [address] [id number] [place] [address]- 6333 Mar, [facility] [place] [facility] [address] [id number] [place] [address]- 8139 Mar, [facility] [place] [facility] [address] [id number] [place] [address]- 9157 Mar, [facility] [place] [facility] [address] [id number] [place] [address]- 2971 Mar, [facility] [address] [id number] [place] [address]- 1991 Mar, [facility] [place] [facility] [address] [id number] [place] [address]- 1284 Feb, [facility] [place] [facility] [address] [id number] [place] [address]- 6245 Feb, [facility] [place] [facility] [address] [id number] [place] [address]- 6540 Feb, [facility] [place] [facility] [address] [id number] [place] 3819 Feb, [facility] [place] [facility] [address] [id number] [place] [address]- 1274 Feb, [facility] [place] [facility] [address] [id number] [place] [address]- 8307 Feb, [facility] [place] [facility] [address] [id number] [place] [address]- 6021 Jan, [facility] [place] [facility] [address] [id number] [place] [address]- 4896 Jan, [facility] [place] [facility] [address] [id number] [place] [address]- 4785 Jan, [facility] [place] [facility] [address] [id number] [place] [address]- 4873 Jan, [facility] [place] [facility] [address] [id number] [place] [address]- 2763 Jan, [facility] [place] [facility] [address] [id number] [place] [address]- 2635 Jan, [facility] [place] [facility] [address] [id number] [place] [address]- 4715 Dec, [facility] [place] [facility] [address] [id number] [place] [address]- 8683 Dec, [facility] [place] [facility] [address] [id number] [place] [address]- 1697 Dec, [facility] [place] [facility] [address] [id number] [place] [address]- 8825 Dec, [facility] [place] [facility] [address] [id number] [place] [address]- 7520 Nov, [facility] [place] [facility] [address] [id number] [place] [address]- 6122 Nov, [facility] [place] [facility] [address] [id number] [place] [address]- 3778 Oct, [facility] [place] [facility] [address] [id number] [place] [address]- 7387 Oct, [facility] [place] [facility] [address] [id number] [place] [address]- 0464 Oct, [facility] [place] [facility] [address] [id number] [place] [address]- 7313 Oct, [facility] [place] [facility] [address] [id number] [place] [address]- 2331 Oct, [facility] [place] [facility] [address] [id number] [place] [address]- 5198 Oct, [facility] [place] [facility] [address] [id number] [place] [address]- 9800 Sep, [facility] [place] [facility] [address] [id number] [place] [address]- 7536 Sep, [facility] [place] [facility] [address] [id number] [place] [address]- 3124 Sep, [facility] [place] [facility] [address] [id number] [place] [address]- 9866 Sep, [facility] [place] [facility] [address] [id number] [place] [address]- 9239 Sep, [facility] [place] [facility] [address] [id number] [place] [address]- 7927 Sep, [facility] [address] [id number] [place] [address]- 6503 Sep, [facility] [address] [id number] [place] [address]- 5169 Sep, [facility] [address] [id number] [place] [address]- 4411 Sep, [facility] [address] [id number] [place] [address]- 3914 Sep, [facility] [address] [id number] [place] [address]- 6803 Sep, [facility] [address] [id number] [place] [address]- 9651 Sep, [facility] [address] [id number] [place] [address]- 7989 Sep, [facility] [address] [id number] [place] [address]- 9577 Sep, [facility] [address] [id number] [place] [address]- 2139 Feb, [facility] [address] [id number] [place] [address]- 6209 Feb, [facility] [address] [id number] [place] [address]- 6277 July, [facility] [address] [id number] [place] [address]- 6411 Apr, [facility] [address] [id number] [place] [address]- 2797 Apr, [facility] [address] [id number] [place] [address]- 9896 Apr, [facility] [address] [id number], [place] [address]- 5197 Apr, IMMUNIZATIONS No Known Immunizations SOCIAL HISTORY Never Assessed REASON FOR VISIT Lab (walk-in) PLAN OF CARE VITAL SIGNS MEDICATIONS Unknown Medications RESULTS Name Result Date Reference Range CBC 2016-10-04 WBC 7.7 3.4-10.8 RBC 5.34 4.14-5.80 Hemoglobin 15.2 12.6-17.7 Hematocrit 45.4 37.5-51.0 MCV 85 79-97 MCH 28.5 26.6-33.0 MCHC 33.5 31.5-35.7 RDW 14.1 12.3-15.4 Platelets 279 150-379 Neutrophils 64 Lymphs 26 Monocytes 7 Eos 2 Basos 1 Neutrophils (Absolute) 4.9 1.4-7.0 Lymphs (Absolute) 2.0 0.7-3.1 Monocytes(Absolute) 0.5 0.1-0.9 Eos (Absolute) 0.2 0.0-0.4 Baso (Absolute) 0.0 0.0-0.2 Immature Granulocytes 0 Immature Grans (Abs) 0.0 0.0-0.1 LIPID PANEL 2016-10-04 Cholesterol, Total 140 100-199 Triglycerides 186 0-149 HDL Cholesterol 32 >39 VLDL Cholesterol Lasha 37 5-40 LDL Cholesterol Calc 71 0-99 Comment: CMP 2016-10-04 Glucose, Serum 92 65-99 BUN 9 6-20 Creatinine, Serum 0.82 0.76-1.27 eGFR If NonAfricn Am 119 >59 eGFR If Africn Am 137 >59 BUN/Creatinine Ratio 11 9-20 Sodium, Serum 138 134-144 Potassium, Serum 4.3 3.5-5.2 Chloride, Serum 96 96-106 Carbon Dioxide, Total 21 18-29 Calcium, Serum 9.5 8.7-10.2 Protein, Total, Serum 7.2 6.0-8.5 Albumin, Serum 4.2 3.5-5.5 Globulin, Total 3.0 1.5-4.5 A/G Ratio 1.4 1.2-2.2 Bilirubin, Total 1.1 0.0-1.2 Alkaline Phosphatase, S 36 39-117 AST (SGOT) 22 0-40 ALT (SGPT) 26 0-44 CBC 2016-10-04 WBC 7.7 3.4-10.8 RBC 5.34 4.14-5.80 Hemoglobin 15.2 12.6-17.7 Hematocrit 45.4 37.5-51.0 MCV 85 79-97 MCH 28.5 26.6-33.0 MCHC 33.5 31.5-35.7 RDW 14.1 12.3-15.4 Platelets 279 150-379 Neutrophils 64 Lymphs 26 Monocytes 7 Eos 2 Basos 1 Neutrophils (Absolute) 4.9 1.4-7.0 Lymphs (Absolute) 2.0 0.7-3.1 Monocytes(Absolute) 0.5 0.1-0.9 Eos (Absolute) 0.2 0.0-0.4 Baso (Absolute) 0.0 0.0-0.2 Immature Granulocytes 0 Immature Grans (Abs) 0.0 0.0-0.1 LIPID PANEL 2016-10-04 Cholesterol, Total 140 100-199 Triglycerides 186 0-149 HDL Cholesterol 32 >39 VLDL Cholesterol Lasha 37 5-40 LDL Cholesterol Calc 71 0-99 Comment: CMP 2016-10-04 Glucose, Serum 92 65-99 BUN 9 6-20 Creatinine, Serum 0.82 0.76-1.27 eGFR If NonAfricn Am 119 >59 eGFR If Africn Am 137 >59 BUN/Creatinine Ratio 11 9-20 Sodium, Serum 138 134-144 Potassium, Serum 4.3 3.5-5.2 Chloride, Serum 96 96-106 Carbon Dioxide, Total 21 18-29 Calcium, Serum 9.5 8.7-10.2 Protein, Total, Serum 7.2 6.0-8.5 Albumin, Serum 4.2 3.5-5.5 Globulin, Total 3.0 1.5-4.5 A/G Ratio 1.4 1.2-2.2 Bilirubin, Total 1.1 0.0-1.2 Alkaline Phosphatase, S 36 39-117 AST (SGOT) 22 0-40 ALT (SGPT) 26 0-44 INR (IN HOUSE) 2016-10-04 INR 2.3 1.10 - 3.30 PREVIOUS INR 2.7 CURRENT COUMADIN DOSE 2mg MWF/3mg TTSS NEW COUMADIN DOSE Lot # [id number] Exp date 05/2017 CBC 2016-10-04 WBC 7.7 3.4-10.8 RBC 5.34 4.14-5.80 Hemoglobin 15.2 12.6-17.7 Hematocrit 45.4 37.5-51.0 MCV 85 79-97 MCH 28.5 26.6-33.0 MCHC 33.5 31.5-35.7 RDW 14.1 12.3-15.4 Platelets 279 150-379 Neutrophils 64 Lymphs 26 Monocytes 7 Eos 2 Basos 1 Neutrophils (Absolute) 4.9 1.4-7.0 Lymphs (Absolute) 2.0 0.7-3.1 Monocytes(Absolute) 0.5 0.1-0.9 Eos (Absolute) 0.2 0.0-0.4 Baso (Absolute) 0.0 0.0-0.2 Immature Granulocytes 0 Immature Grans (Abs) 0.0 0.0-0.1 LIPID PANEL 2016-10-04 Cholesterol, Total 140 100-199 Triglycerides 186 0-149 HDL Cholesterol 32 >39 VLDL Cholesterol Lasha 37 5-40 LDL Cholesterol Calc 71 0-99 Comment: CMP 2016-10-04 Glucose, Serum 92 65-99 BUN 9 6-20 Creatinine, Serum 0.82 0.76-1.27 eGFR If NonAfricn Am 119 >59 eGFR If Africn Am 137 >59 BUN/Creatinine Ratio 11 9-20 Sodium, Serum 138 134-144 Potassium, Serum 4.3 3.5-5.2 Chloride, Serum 96 96-106 Carbon Dioxide, Total 21 18-29 Calcium, Serum 9.5 8.7-10.2 Protein, Total, Serum 7.2 6.0-8.5 Albumin, Serum 4.2 3.5-5.5 Globulin, Total 3.0 1.5-4.5 A/G Ratio 1.4 1.2-2.2 Bilirubin, Total 1.1 0.0-1.2 Alkaline Phosphatase, S 36 39-117 AST (SGOT) 22 0-40 ALT (SGPT) 26 0-44 INR (IN HOUSE) 2016-10-04 INR 2.3 1.10 - 3.30 PREVIOUS INR 2.7 CURRENT COUMADIN DOSE 2mg MWF/3mg TTSS NEW COUMADIN DOSE Lot # [id number] Exp date 05/2017 PROCEDURES Procedure Date Ordered Result Body Site COMPLETE CBC W/AUTO DIFF WBC October 04, 2016 LIPID PANEL October 04, 2016 PROTHROMBIN TIME October 04, 2016 COMPREHEN METABOLIC PANEL October 04, 2016 VENIPUNCT, ROUTINE* October 04, 2016 INSTRUCTIONS MEDICATIONS ADMINISTERED No Known Medications MEDICAL (GENERAL) HISTORY Type Description Date Medical History Atrial fibrillation Medical History hx of c. diff Medical History Stress test performed; EF 25% Last test 2016 was at 60% Medical History Palpitations Medical History Cardiac Arrest with CPR and Intubation with ET tube and transferred to [facility] Trach placed 03/2017 Surgical History Defibrillation placed 2017 Surgical History Trach/PEG Tube placed and removed [facility] after Intubation 2017 Hospitalization History ICU for Afib 09/2013 Hospitalization History Admitted to Transferred to Cardiac ICU/ Rehab 03/2017 Hospitalization History Coded, Defribrillated and ET tube placed for ventillation and transferred to [facility] 03/2017
--- OUTSIDE RECORDS SUMMARY | 2018-05-09 18:09 | XMS REPORT ---
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 Active 335128833 Problem Cardiomyopathy I42.9 Active 07302918 Problem 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 I48.2 Active 470706967 Problem Post-cardiac injury syndrome I24.1 Active 61987525 Problem Anoxic brain injury G93.1 Active 133623788 Problem Hypertension I10 Active 59701362 Problem Adjustment disorder with depressed mood F43.21 Active 80389065 Problem Cardiac defibrillator in place Z95.810 Active 722404195 Problem Afib I48.91 Active 06684541 Problem Non-ischemic cardiomyopathy I42.8 Active 37004341 Problem History of cardiac arrest Z86.74 Active 300441783 Problem Current moderate episode of major depressive disorder without prior episode F32.1 Active 70849914 ALLERGIES No Information ENCOUNTERS Encounter Location Date Diagnosis [facility] [id number] [place] [address] 35551- 1892 July, [facility] [id number] [place] [address] 11280- 1183 July, [facility] [id number] [place] [address] 65924- 8883 Jun, Adjustment disorder with depressed mood F43.21 [facility] [id number] [place] [address] 43753- 8852 Jun, [facility] [id number] [place] [address] 24059- 0591 Jun, [facility] [id number] [place] [address] 68838- 8855 29 May, 2017 [facility] [id number] [place] [address] 91041- 8327 26 May, 2017 [facility] [id number] [place] [address] 08809- 1778 16 May, 2017 [facility] [id number] [place] [address] 43892- 1147 15 May, 2017 [facility] [id number] [place] [address] 65764- 6642 13 May, 2017 History of cardiac arrest Z86.74 ; Cardiac defibrillator in place Z95.810 ; 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 I48.2 and Current moderate episode of major depressive disorder without prior episode F32.1 [facility] [id number] [place] [address] 82912- 3530 12 May, 2017 [facility] [id number] [place] [address] 80018- 1005 Mar, [facility] (current) use of anticoagulants Z79.01 [facility] [id number] [place] [address] 90002- 8693 Mar, [facility] [id number] [place] [address] 36708- 3169 Mar, 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 [facility] [id number] [place] [address] 69727- 8626 Feb, Afib I48.91 [facility] [id number] [place] [address] 04607- 0424 Feb, [facility] (current) use of anticoagulants Z79.01 [facility] [id number] [place] [address] 28452 -5998 Jan, Other viral agents as the cause of diseases classified elsewhere B97.89 ; Acute upper respiratory infection, unspecified J06.9 and Body aches R52 [facility] [address] [place] [address] 8783 Jan, Afib I48.91 [facility] [id number] [place] [address] 87695- 2350 Jan, Afib I48.91 and 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 [facility] [id number] [place] [address] 39425- 3984 Dec, Afib I48.91 [facility] [id number] [place] [address] 19275- 7994 Dec, 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 I48.2 [facility] [id number] [place] [address] 85284- 8850 Nov, Hypertension I10 [facility] [id number] [place] [address] 12455- 9328 Oct, 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 I48.2 [facility] [id number] [place] [address] 48437- 1226 Oct, [facility] (current) use of anticoagulants Z79.01 [facility] [id number] [place] [address] 77008- 0716 Oct, 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 I48.2 [facility] [id number] [place] [address] 71122- 0743 Oct, 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 I48.2 [facility] [id number] [place] [address] 26538- 8623 Sep, [facility] (current) use of anticoagulants Z79.01 ; Hypertension I10 ; Cardiomyopathy I42.9 and Afib I48.91 [facility] [id number] [place] [address] 41563- 3801 Sep, 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 ; Hypertension I10 ; Cardiomyopathy I42.9 and Afib I48.91 [facility] [id number] [place] [address] 03929- 9251 Aug, 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 [place] [address] [address]- 0921 Aug, 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 [place] [address] [address]- 5646 Aug, [facility] (current) use of anticoagulants Z79.01 [facility] [id number] [place] [address] 09814- 3598 July, 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 [facility] [address] [place] [address] 52010- 2990 Jun, 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 [facility] [id number] [place] [address] 50442- 8711 Jun, 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 [facility] [id number] [place] [address] 08362- 1814 May, 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 I48.2 [facility] [id number] [place] [address] 21073- 9718 May, [facility] [id number] [place] [address] 93554- 0547 May, [facility] (current) use of anticoagulants Z79.01 [facility] [address] [place] [address] 85816- 1599 May, 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 [facility] [address] [address]- 3162 May, Afib I48.91 ; Non-ischemic cardiomyopathy I42.8 ; Hypotension, unspecified hypotension type I95.9 and Heart palpitations R00.2 [facility] [address] [address]- 4035 16 Apr, 2016 [facility] (current) use of anticoagulants Z79.01 [facility] [address] [address]- 0589 Apr, 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 [facility] [id number] [place] [address] 795066- 4606 Mar, 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 [facility] [id number] [place] [address] 83664- 1866 Feb, 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 [facility] [id number] [place] [address] 20652- 4796 Feb, 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 [facility] [place] [id number] [place] [address] 96387- 3890 Jan, [facility] (current) use of anticoagulants Z79.01 [facility] [place] [id number] [place] [address] 16481- 8058 Jan, [facility] (current) use of anticoagulants Z79.01 [facility] [place] [id number] [place] [address] 58539- 0384 Dec, [facility] (current) use of anticoagulants Z79.01 [facility] [place] [id number] [place] [address] 39194- 6603 Dec, 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 [place] [address] [place] [address] 37960- 7231 Oct, 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 [facility] [place] [id number] [place] [address] 18572- 0501 Oct, [facility] (current) use of anticoagulants Z79.01 [place] [address] [place] [address] 93334- 2740 Oct, Afib I48.91 ; Cardiomyopathy I42.9 ; Palpitations R00.2 and Non-rheumatic tricuspid valve insufficiency I36.1 [place] [address] [place] [address] 24262- 3671 Sep, 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 I48.2 ; [facility] (current) use of anticoagulants Z79.01 ; Cardiomyopathy I42.9 and Hypertension I10 [facility] [address] [place] [address] 05308 -6736 Aug, Allergic rhinitis, unspecified allergic rhinitis type J30.9 [facility] [id number] [place] [address] 68255- 7215 Aug, 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 [facility] [id number] [place] [address] 92217- 9456 Jun, [facility] (current) use of anticoagulants Z79.01 [facility] [place] [id number] [place] [address] 79551- 3529 Jun, [facility] (current) use of anticoagulants Z79.01 [facility] [id number] [place] [address] 40111- 5255 Jun, 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 [facility] [place] [id number] [place] [address] 90832- 6450 Jun, [facility] [id number] [place] [address] 14156- 1974 May, Encounter for long-term (current) use of anticoagulants V58.61 [facility] [id number] [place] [address] 47417- 2542 May, Encounter for long-term (current) use of anticoagulants V58.61 [facility] [id number] [place] [address] 26224- 5565 May, Encounter for long-term (current) use of anticoagulants V58.61 [place] [address] [place] [address] 03753- 0186 Apr, Encounter for long-term (current) use of anticoagulants V58.61 [facility] [id number] [place] [address] 65366- 0951 Apr, 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 [facility] [id number] [place] [address] 85577- 7706 Apr, Afib I48.91 ; Hypertension I10 ; Cardiomyopathy I42.9 and Palpitations R00.2 [place] [address] 74606- 1633 Mar, 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 54596- 0882 Mar, Encounter for long-term (current) use of anticoagulants V58.[address] 92781- 6538 Mar, Encounter for long-term (current) use of anticoagulants V58.61 [facility] [place] [id number] [place] [address] 91398- 5114 Mar, 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 and Encounter for therapeutic drug level monitoring Z51.81 [facility] [place] [id number] [place] [address] 07848- 3236 Feb, [facility] (current) use of anticoagulants Z79.01 and Encounter for therapeutic drug level monitoring Z51.81 [facility] [id number] [place] [address] 31676- 7149 Feb, Encounter for long-term (current) use of anticoagulants V58.61 [facility] [id number] [place] [address] 31630- 2316 Feb, [place] [id number] [place] [address] 65954- 7858 Feb, Encounter for long-term (current) use of anticoagulants V58.61 [place] [address] [place] [address]- 4958 Feb, Encounter for therapeutic drug level monitoring Z51.81 [facility] [place] [id number] [place] [address] 43236- 6456 Jan, [facility] [id number] [place] [address] 74924- 2544 Dec, Encounter for long-term (current) use of anticoagulants V58.61 and Atrial fibrillation 427.31 [facility] [place] [id number] [place] [address] 07787- 2966 Dec, Chest wall muscle strain S29.011A [facility] [id number] [place] [address] 05523- 0496 Nov, Encounter for long-term (current) use of anticoagulants V58.61 and Atrial fibrillation 427.31 [facility] [place] [id number] [place] [address] 58137- 9752 Nov, Atrial fibrillation 427.31 [facility] [place] [id number] [place] [address] 53611 2542 Nov, [facility] [place] [id number] [place] [address] 54231 2548 Nov, Atrial fibrillation 427.31 [place] [address] [place] [address] 83966- 5643 Nov, Atrial fibrillation 427.31 [place] [address] [place] [address] 85020 2543 Oct, Encounter for long-term (current) use of anticoagulants V58.61 [place] [address] [place] [address] 14241 2546 Sep, Encounter for long-term (current) use of anticoagulants V58.61 [place] [address] [place] [address] 52719 2546 Aug, Encounter for long-term (current) use of anticoagulants V58.61 [place] [address] [place] [address]- 6071 July, [facility] [place] [facility] [address] [id number] [place] [address]- 5468 July, [facility] [place] [facility] [address] [id number] [place] [address]- 8679 July, [facility] [place] [facility] [address] [id number] [place] [address]- 4344 Jun, [facility] [place] [facility] [address] [id number] [place] [address]- 4399 Jun, [facility] [place] [facility] [address] [id number] [place] [address]- 2501 May, [facility] [place] [facility] [address] [facility] [id number] [place] [address]- 4374 May, [facility] [place] [facility] [address] [facility] [id number] [place] [address]- 2524 May, [facility] [place] [facility] [address] [facility] [id number] [place] [address]- 2344 Apr, [facility] [place] [facility] [id number] [place] [place] [address]- 0139 Apr, [facility] [place] [facility] [address] [facility] [id number] [place] [address]- 0317 Apr, [facility] [place] [facility] [address] [facility] [id number] [place] [address]- 5926 Apr, [facility] [place] [facility] [address] [facility] [id number] [place] [address]- 5612 Apr, [facility] [place] [facility] [address] [id number] [place] 0942 Apr, [facility] [place] [facility] [address] [facility] [id number] [place] [address]- 5607 Apr, [facility] [place] [facility] [address] [place] [address]- 6436 Mar, [facility] [place] [facility] [address] [id number] [place] [address]- 7638 Mar, [facility] [place] [facility] [address] [id number] [place] [address]- 5972 Mar, [facility] [place] [facility] [address] [id number] [place] [address]- 5367 Mar, [facility] [place] [facility] [address] [id number] [place] [address]- 0960 Mar, [facility] [place] [facility] [address] [id number] [place] [address]- 2912 Mar, [facility] [place] [facility] [address] [id number] [place] [address]- 3451 Mar, [facility] [place] [facility] [address] [id number] [place] [address]- 2973 Mar, [facility] [place] [facility] [address] [id number] [place] [address]- 1248 Feb, [facility] [place] [facility] [address] [id number] [place] [address]- 9755 Feb, [facility] [place] [facility] [address] [id number] [place] [address]- 2094 Feb, [facility] [place] [facility] [address] [id number] [place] [address]- 3753 Feb, [facility] [place] [facility] [address] [id number] [address]- 4238 Feb, [facility] [place] [facility] [address] [id number] [place] [address]- 2595 Feb, [facility] [place] [facility] [address] [id number] [place] [address]- 0389 Jan, [facility] [place] [facility] [address] [id number] [place] [address]- 4267 Jan, [facility] [place] [facility] [address] [id number] [place] [address]- 5401 Jan, [facility] [place] [facility] [address] [id number] [place] [address]- 9039 Jan, [facility] [place] [facility] [address] [id number] [place] [address]- 7251 Jan, [facility] [place] [facility] [address] [id number] [place] [address]- 1207 Jan, [facility] [place] [facility] [address] [id number] [place] [address]- 1501 Dec, [facility] [place] [facility] [address] [id number] [place] [address]- 1825 Dec, [facility] [place] [facility] [address] [id number] [place] [address]- 8085 Dec, [facility] [place] [facility] [address] [id number] [place] [address]- 5217 Dec, [facility] [place] [facility] [address] [id number] [place] [address]- 1000 Nov, [facility] [place] [facility] [address] [id number] [place] [address]- 5225 Nov, [facility] [place] [facility] [address] [id number] [place] [address]- 6004 Oct, [facility] [place] [facility] [address] [id number] [place] [address]- 1903 Oct, [facility] [place] [facility] [address] [id number] [place] [address]- 3450 Oct, [facility] [place] [facility] [address] [id number] [place] [address]- 8565 Oct, [facility] [place] [facility] [address] [id number] [place] [address]- 8549 Oct, [facility] [place] [facility] [address] [id number] [place] [address]- 0181 Oct, [facility] [place] [facility] [address] [id number] [place] [address]- 2817 Sep, [facility] [place] [facility] [address] [id number] [place] [address]- 0322 Sep, [facility] [place] [facility] [address] [id number] [place] [address]- 3199 Sep, [facility] [place] [facility] [address] [id number] [place] [address]- 9861 Sep, [facility] [place] [facility] [address] [id number] [place] [address]- 6816 Sep, [facility] [place] [facility] [address] [id number] [place] [address]- 3420 Sep, [facility] [place] [facility] [address] [id number] [place] [address]- 8400 Sep, [facility] [place] [facility] [address] [id number] [place] [address]- 5159 Sep, [facility] [place] [facility] [address] [id number] [place] [address]- 6401 Sep, [facility] [place] [facility] [address] [id number] [place] [address]- 9110 Sep, [facility] [place] [facility] [address] [id number] [place] [address]- 6494 Sep, [facility] [place] [facility] [address] [id number] [place] [address]- 2127 Sep, [facility] [place] [facility] [address] [id number] [place] [address]- 1310 Sep, [facility] [place] [facility] [address] [id number] [place] [address]- 1906 Sep, [facility] [place] [facility] [address] [id number] [place] [address]- 5538 Feb, [facility] [place] [facility] [address] [id number] [address]- 2546 Feb, [facility] [address] [facility] [id number] [place] [address]- 2546 July, [facility] [id number] [address]- 2546 Apr, [facility] [id number] [address]- 2546 Apr, [facility] [id number] [address]- 2546 Apr, [facility] [address] [facility] [id number] [place] [address]- 2546 Apr, IMMUNIZATIONS No Known Immunizations SOCIAL HISTORY Never Assessed REASON FOR VISIT FYI only PLAN OF CARE VITAL SIGNS MEDICATIONS Unknown [...] Intubation with ET tube and transferred to [facility] Trach placed 03/2017 Surgical History Defibrillation placed 2017 Surgical History Trach/PEG Tube placed and removed [facility] after Intubation 2018 Hospitalization History ICU for Afib 09/2013 Hospitalization History Admitted to Transferred to Cardiac ICU/ Rehab 03/2017 Hospitalization History Coded, Defribrillated and ET tube placed for ventillation and transferred to [facility] 03/2017
[2018-05-09 18:10] LABS: PROTHROMBIN TIME PATIENT 13.3 SEC (12.2-14.7)
--- OUTSIDE RECORDS SUMMARY | 2018-05-09 18:10 | XMS REPORT ---
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 825677696 Problem Cardiomyopathy I42.9 Active 55603523 Problem 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 I48.2 Active 117633195 Problem Post-cardiac injury syndrome I24.1 Active 93312538 Problem Anoxic brain injury G93.1 Active 214432822 Problem Hypertension I10 Active 03432589 Problem Adjustment disorder with depressed mood F43.21 Active 08186563 Problem Cardiac defibrillator in place Z95.810 Active 149734534 Problem Afib I48.91 Active 65860268 Problem Non-ischemic cardiomyopathy I42.8 Active 29092061 Problem History of cardiac arrest Z86.74 Active 433881420 Problem Current moderate episode of major depressive disorder without prior episode F32.1 Active 75717026 ALLERGIES No Information ENCOUNTERS Encounter Location Date Diagnosis [facility] [id number] [place] [address] 88033- 5526 July, [facility] [id number] [place] [address] 86502- 8472 Jun, Adjustment disorder with depressed mood F43.21 [facility] [id number] [place] [address] 82288- 5209 Jun, [facility] [id number] [place] [address] 05949- 7772 Jun, [facility] [id number] [place] [address] 84349- 8230 May, [facility] [address] [place] [address]- 9329 26 May, 2017 [facility] [id number] [place] [address] 21880- 4409 16 May, 2017 [facility] [id number] [place] [address] 36125- 9437 15 May, 2017 [facility] [id number] [place] [address] 37990- 3683 13 May, 2017 History of cardiac arrest Z86.74 ; Cardiac defibrillator in place Z95.810 ; 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 I48.2 and Current moderate episode of major depressive disorder without prior episode F32.1 [place] [address] [address]- 5400 12 May, 2017 [facility] [id number] [place] [address] 87132- 9232 Mar, correction (current) use of anticoagulants Z79.01 [facility] [id number] [place] [address] 36462- 2502 Mar, [facility] [id number] [place] [address] 51964- 9317 Mar, correction (current) use of anticoagulants Z79.01 [facility] [id number] [place] [address] 08102- 8349 Feb, Afib I48.91 [facility] [id number] [place] [address] 46996- 1989 Feb, 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 [facility] [id number] [place] [address] 94833 -0255 Jan, Other viral agents as the cause of diseases classified elsewhere B97.89 ; Acute upper respiratory infection, unspecified J06.9 and Body aches R52 [facility] [id number] [place] [address] 69406- 6142 17 Jan, 2017 Afib I48.91 [facility] [address] [address]- 1208 Jan, Afib I48.91 and correction (current) use of anticoagulants Z79.01 [place] [address] [address]- 6040 Dec, Afib I48.91 [place] [id number] [place] [address] 01466- 9180 Dec, 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 I48.2 [place] [id number] [place] [address] 79072- 7496 Nov, Hypertension I10 [place] [id number] [place] [address] 71154- 5401 Oct, 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 I48.2 [place] [id number] [place] [address] 37086- 4497 Oct, correction (current) use of anticoagulants Z79.01 [place] [address] [address]- 7421 Oct, 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 I48.2 [place] [id number] [place] [address] 12032- 8624 Oct, 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 I48.2 [place] [address] [address]- 7522 Sep, correction (current) use of anticoagulants Z79.01 ; Hypertension I10 ; Cardiomyopathy I42.9 and Afib I48.91 [place] [address] [place] [address] 00069- 4667 Sep, correction (current) use of anticoagulants Z79.01 ; Hypertension I10 ; Cardiomyopathy I42.9 and Afib I48.91 [place] [address] [address]- 2640 Aug, correction (current) use of anticoagulants Z79.01 [place] [address] [place] [address] 64061- 7357 Aug, 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 [place] [address] [place] [address] 74765- 6070 Aug, correction (current) use of anticoagulants Z79.01 [place] [id number] [place] [address] 37395- 6743 July, 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 [place] [id number] [place] [address] 88620- 7840 Jun, correction (current) use of anticoagulants Z79.01 [place] [id number] [place] [address] 22570- 0230 Jun, correction (current) use of anticoagulants Z79.01 [place] [id number] [place] [address] 23563- 0962 May, 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 I48.2 [place] [id number] [place] [address] 65499- 9581 May, [place] [id number] [place] [address] 87858- 0346 May, 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 [place] [address] [place] [address] 55184- 7475 10 May, 2016 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 [place] [address] [place] [address] 53619- 1127 10 May, 2016 Afib I48.91 ; Non-ischemic cardiomyopathy I42.8 ; Hypotension, unspecified hypotension type I95.9 and Heart palpitations R00.2 [place] [address] [place] [address] 65795- 8414 16 Apr, 2016 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 [place] [id number] [place] [address] 86893- 5716 Apr, correction (current) use of anticoagulants Z79.01 [place] [facility] [id number] [place] [address] 12200- 1493 Mar, correction (current) use of anticoagulants Z79.01 [place] [id number] [place] [address] 33152- 8196 Feb, 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 [place] [id number] [place] [address] 77776- 4087 Feb, correction (current) use of anticoagulants Z79.01 [place] [id number] [place] [address] 14019- 4915 Jan, 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 [place] [id number] [place] [address] 183323- 2038 Jan, 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 [place] [id number] [place] [address] 78192- 3120 Dec, 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 [place] [id number] [place] [address] 80112- 4975 Dec, correction (current) use of anticoagulants Z79.01 [place] [id number] [place] [address] 20990- 8806 Oct, 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 [place] [id number] [place] [address] 26981- 8647 Oct, 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 [place] [id number] [place] [address] 07949280- 6241 Oct, Afib I48.91 ; Cardiomyopathy I42.9 ; Palpitations R00.2 and Non-rheumatic tricuspid valve insufficiency I36.1 [place] [address] 74594- 2571 Sep, 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 I48.2 ; 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 ; Cardiomyopathy I42.9 and Hypertension I10 [facility] [address] [place] [address] 57907 -9083 Aug, Allergic rhinitis, unspecified allergic rhinitis type J30.9 [facility] [id number] [place] [address] 17720- 0845 Aug, 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 [place] [id number] [place] [address] 99679- 1449 Jun, 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 [place] [id number] [place] [address] 87908- 7123 Jun, 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 [place] [id number] [place] [address] 07453- 1434 Jun, 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 [place] [id number] [place] [address] 35505- 9206 Jun, [place] [id number] [place] [address] 00880- 1644 May, Encounter for long-term (current) use of anticoagulants V58.61 [place] [id number] [place] [address] 23414- 9306 May, Encounter for long-term (current) use of anticoagulants V58.61 [place] [address] [place] [address] 81414- 8837 May, Encounter for long-term (current) use of anticoagulants V58.61 [place] [id number] [place] [address] 35000- 1537 Apr, Encounter for long-term (current) use of anticoagulants V58.61 [place] [id number] [place] [address] 77511- 2002 Apr, correction (current) use of anticoagulants Z79.01 [place] [id number] [place] [address] 54228- 8564 Apr, Afib I48.91 ; Hypertension I10 ; Cardiomyopathy I42.9 and Palpitations R00.2 [place] [id number] [place] [address] 64129- 6396 Mar, 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 [place] [id number] [place] [address] 21107- 8069 Mar, Encounter for long-term (current) use of anticoagulants V58.61 [place] [id number] [place] [address] 36372- 4915 Mar, Encounter for long-term (current) use of anticoagulants V58.61 [place] [address] 07765- 2725 Mar, correction (current) use of anticoagulants Z79.01 and Encounter for therapeutic drug level monitoring Z51.81 [place] [id number] [place] [address] 29557- 1877 Feb, correction (current) use of anticoagulants Z79.01 and Encounter for therapeutic drug level monitoring Z51.81 [place] [id number] [place] [address] 37086- 1877 Feb, Encounter for long-term (current) use of anticoagulants V58.61 [place] [id number] [place] [address] 76293- 9389 Feb, [place] [address] 48438- 6446 Feb, Encounter for long-term (current) use of anticoagulants V58.61 [place] [id number] [place] [address] 08352- 2264 Feb, Encounter for therapeutic drug level monitoring Z51.81 [place] [address] [address]- 2236 Jan, [place] [address] [address]- 7036 Dec, Encounter for long-term (current) use of anticoagulants V58.61 and Atrial fibrillation 427.31 [place] [address] [address] 2546 Dec, Chest wall muscle strain S29.011A [place] [address] [address] 2546 Nov, Encounter for long-term (current) use of anticoagulants V58.61 and Atrial fibrillation 427.31 [place] [address] [address] 2546 Nov, Atrial fibrillation 427.31 [place] [address] [place] [address] 30984- 6056 Nov, [place] [address] [place] [address] 12024 2546 Nov, Atrial fibrillation 427.31 [place] [address] [address]- 6086 Nov, Atrial fibrillation 427.31 [place] [address] [address]- 4376 Oct, Encounter for long-term (current) use of anticoagulants V58.61 [place] [address] [place] [id number] [address] 2546 Sep, Encounter for long-term (current) use of anticoagulants V58.61 [place] [address] [id number] [address] 2546 Aug, Encounter for long-term (current) use of anticoagulants V58.61 [place] [id number] [address] 2546 July, [place] [address] [place] [id number] [place] [address]- 9714 July, [facility] [place] [facility] [address] [id number] [place] [address]- 3441 July, [facility] [place] [facility] [address] [id number] [place] [address]- 1541 Jun, [facility] [place] [facility] [address] [facility] [id number] [place] [address]- 6213 Jun, [facility] [place] [facility] [address] [facility] [id number] [place] [address]- 5574 May, [facility] [place] [facility] [address] [id number] [place] [address]- 9248 May, [facility] [place] [facility] [address] [facility] [id number] [place] [address]- 9074 May, [facility] [place] [facility] [address] [place] [address]- 5254 Apr, [facility] [place] [facility] [address] [facility] [id number] [place] [address]- 6128 Apr, [facility] [place] [facility] [address] [place] [address]- 9031 Apr, [facility] [place] [facility] [address] [id number] [place] [address]- 5871 Apr, [facility] [place] [facility] [address] [facility] [id number] [place] [address]- 0773 Apr, [facility] [place] [facility] [address] [facility] [id number] [place] [address]- 7849 Apr, [facility] [place] [facility] [address] [facility] [id number] [place] [address]- 0636 Apr, [facility] [place] [facility] [address] [facility] [id number] [place] [address]- 4567 Mar, [facility] [place] [facility] [address] [place] [address]- 5626 Mar, [facility] [place] [facility] [address] [id number] [place] [address]- 2646 Mar, [facility] [place] [facility] [address] [id number] [place] [address]- 4868 Mar, [facility] [place] [facility] [address] [id number] [place] [address]- 1391 Mar, [facility] [place] [facility] [address] [id number] [place] [address]- 0000 Mar, [facility] [place] [facility] [address] [id number] [place] [address]- 5683 Mar, [facility] [place] [facility] [address] [id number] [place] [address]- 2917 Mar, [facility] [place] [facility] [address] [id number] [place] [address]- 4733 Feb, [facility] [place] [facility] [address] [id number] [place] [address]- 3065 Feb, [facility] [place] [facility] [address] [id number] [place] [address]- 9541 Feb, [facility] [place] [facility] [address] [id number] [place] [address]- 2076 Feb, [facility] [place] [facility] [address] [id number] [place] [address]- 6134 Feb, [facility] [place] [facility] [address] [id number] [place] [address]- 7992 Feb, [facility] [place] [facility] [address] [id number] [place] [address]- 6817 Jan, [facility] [place] [facility] [address] [id number] [place] [address]- 5546 Jan, [facility] [place] [facility] [address] [id number] [place] [address]- 9168 Jan, [facility] [place] [facility] [address] [id number] [place] [address]- 9252 Jan, [facility] [place] [facility] [address] [id number] [place] [address]- 4950 Jan, [facility] [place] [facility] [address] [id number] [place] 7656 Jan, [facility] [place] [facility] [address] [id number] [place] [address]- 5516 Dec, [facility] [place] [facility] [address] [id number] [place] [address]- 8461 Dec, [facility] [place] [facility] [address] [id number] [place] [address]- 8075 Dec, [facility] [place] [facility] [address] [id number] [place] [address]- 4858 Dec, [facility] [place] [facility] [address] [id number] [place] [address]- 4851 Nov, [facility] [place] [facility] [address] [id number] [place] [address]- 1802 Nov, [facility] [place] [facility] [address] [id number] [place] [address]- 3075 Oct, [facility] [place] [facility] [address] [id number] [place] [address]- 3122 Oct, [facility] [place] [facility] [address] [id number] [place] [address]- 4401 Oct, [facility] [place] [facility] [address] [id number] [place] [address]- 7083 Oct, [facility] [place] [facility] [address] [id number] [place] [address]- 9403 Oct, [facility] [place] [facility] [address] [id number] [place] [address]- 3822 Oct, [facility] [place] [facility] [address] [id number] [place] [address]- 6702 Sep, [facility] [place] [facility] [address] [id number] [place] [address]- 9856 Sep, [facility] [place] [facility] [address] [id number] [place] [address]- 2207 Sep, [facility] [place] [facility] [address] [id number] [place] [address]- 8369 Sep, [facility] [place] [facility] [address] [id number] [place] [address]- 3227 Sep, [facility] [place] [facility] [address] [id number] [place] [address]- 6589 Sep, [facility] [place] [facility] [address] [id number] [place] [address]- 5604 Sep, [facility] [place] [facility] [address] [id number] [place] [address]- 8783 Sep, [facility] [place] [facility] [address] [id number] [place] [address]- 0458 Sep, [facility] [place] [facility] [address] [id number] [place] [address]- 8346 Sep, [facility] [place] [facility] [address] [id number] [place] [address]- 3684 Sep, [facility] [place] [facility] [address] [id number] [place] [address]- 0024 Sep, [facility] [place] [facility] [address] [id number] [place] [address]- 7100 Sep, [facility] [place] [facility] [address] [id number] [place] [address]- 1631 Sep, [facility] [place] [facility] [address] [id number] [place] [address]- 4168 Feb, [facility] [place] [facility] [address] [id number] [place] [address]- 3203 Feb, [facility] [place] [facility] [address] [id number] [address]- 2546 July, [facility] [address] [facility] [id number] [address]- 2546 Apr, [facility] [address] [facility] [id number] [address]- 2546 Apr, [facility] [address] [facility] [id number] [address]- 2546 Apr, [facility] [address] [facility] [id number] [place] [address]- 2546 Apr, IMMUNIZATIONS No Known Immunizations SOCIAL HISTORY Never Assessed REASON FOR VISIT Lab (walk-in) PLAN OF CARE VITAL SIGNS MEDICATIONS Unknown Medications RESULTS Name Result Date Reference Range INR (IN HOUSE) 2016-12-19 INR 2.6 1.10 - 3.30 PREVIOUS INR 2.5 CURRENT COUMADIN DOSE 3mg MWF/4mg TuThSatSun NEW COUMADIN DOSE Lot # [id number] Exp date 08/17/2017 PROCEDURES Procedure Date Ordered Result Body Site PROTHROMBIN TIME Dec 19, 2016 INSTRUCTIONS MEDICATIONS ADMINISTERED No Known Medications MEDICAL (GENERAL) HISTORY Type Description Date Medical History Atrial fibrillation Medical History hx of c. diff Medical History Stress test performed; EF 25% Last test 2015 was at 60% Medical History Palpitations Medical History Cardiac Arrest with CPR and Intubation with ET tube and transferred to [facility] Trach placed 03/2017 Surgical History Defibrillation placed 2017 Surgical History Trach/PEG Tube placed and removed [facility] after Intubation 2018 Hospitalization History ICU for Afib 09/2013 Hospitalization History Admitted to Transferred to Cardiac ICU/ Rehab 03/2017 Hospitalization History Coded, Defribrillated and ET tube placed for ventillation and transferred to [facility] 03/2017
--- OUTSIDE RECORDS SUMMARY | 2018-05-09 18:10 | XMS REPORT ---
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.01 Active 674139703 Problem Cardiomyopathy I42.9 Active 55171914 Problem 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 I48.2 Active 820520886 Problem Post-cardiac injury syndrome I24.1 Active 47412723 Problem Anoxic brain injury G93.1 Active 326076435 Problem Hypertension I10 Active 23061151 Problem Adjustment disorder with depressed mood F43.21 Active 19570650 Problem Cardiac defibrillator in place Z95.810 Active 126999420 Problem Afib I48.91 Active 35620023 Problem Non-ischemic cardiomyopathy I42.8 Active 33852547 Problem History of cardiac arrest Z86.74 Active 608786794 Problem Current moderate episode of major depressive disorder without prior episode F32.1 Active 82967408 ALLERGIES No Information ENCOUNTERS Encounter Location Date Diagnosis [facility] [id number] [place] [address] 06703- 4088 July, [facility] [id number] [place] [address] 54865- 4429 July, [facility] [id number] [place] [address] 45099- 2236 Jun, Adjustment disorder with depressed mood F43.21 [facility] [id number] [place] [address] 09307- 0959 Jun, [facility] [id number] [place] [address] 92768- 4161 Jun, [facility] [id number] [place] [address] 28521- 8130 29 May, 2017 [facility] [id number] [place] [address] 78515- 9882 26 May, 2017 [facility] [id number] [place] [address] 72884- 3601 16 May, 2017 [facility] [id number] [place] [address] 73279- 6330 15 May, 2017 [facility] [id number] [place] [address] 77347- 0154 13 May, 2017 History of cardiac arrest Z86.74 ; Cardiac defibrillator in place Z95.810 ; 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 I48.2 and Current moderate episode of major depressive disorder without prior episode F32.1 [place] [id number] [place] [address] 21351- 6437 12 May, 2017 [facility] [id number] [place] [address] 95845- 7590 Mar, nursing home (current) use of anticoagulants Z79.01 [facility] [id number] [place] [address] 22136- 0372 Mar, [facility] [id number] [place] [address] 35091- 3292 Mar, intermediate card tender (current) use of anticoagulants Z79.01 [facility] [id number] [place] [address] 75962- 6209 Feb, Afib I48.91 [facility] [id number] [place] [address] 89415- 1461 Feb, nursing home (current) use of anticoagulants Z79.01 [facility] [id number] [place] [address] 13614 -8674 Jan, Other viral agents as the cause of diseases classified elsewhere B97.89 ; Acute upper respiratory infection, unspecified J06.9 and Body aches R52 [place] [address] [place] [address]- 2179 Jan, Afib I48.91 [facility] [facility] [id number] [place] [address] 23012- 7090 Jan, Afib I48.91 and intermediate card tender (current) use of anticoagulants Z79.01 [place] [id number] [place] [address] 30156- 5092 Dec, Afib I48.91 [facility] [id number] [place] [address] 20885- 5958 Dec, 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 I48.2 [facility] [id number] [place] [address] 65338- 5653 Nov, Hypertension I10 [place] [id number] [place] [address] 99997- 1005 Oct, 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 I48.2 [facility] [facility] [id number] [place] [address] 20700- 9268 Oct, nursing home (current) use of anticoagulants Z79.01 [place] [id number] [place] [address] 49532- 8902 Oct, 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 I48.2 [facility] [id number] [place] [address] 59372- 2404 Oct, 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 I48.2 [facility] [id number] [place] [address] 40440- 6116 Sep, nursing home (current) use of anticoagulants Z79.01 ; Hypertension I10 ; Cardiomyopathy I42.9 and Afib I48.91 [place] [id number] [place] [address] 61690- 4807 Sep, intermediate card tender (current) use of anticoagulants Z79.01 ; Hypertension I10 ; Cardiomyopathy I42.9 and Afib I48.91 [place] [id number] [place] [address] 49329- 3739 Aug, intermediate card tender (current) use of anticoagulants Z79.01 [place] [address] [address]- 7523 Aug, intermediate card tender (current) use of anticoagulants Z79.01 [place] [address] [address]- 0516 Aug, nursing home (current) use of anticoagulants Z79.01 [place] [id number] [place] [address] 82187- 4989 July, intermediate card tender (current) use of anticoagulants Z79.01 [place] [address] [place] [address] 04925- 8055 Jun, intermediate card tender (current) use of anticoagulants Z79.01 [place] [id number] [place] [address] 12830- 2336 Jun, intermediate card tender (current) use of anticoagulants Z79.01 [place] [id number] [place] [address] 65612- 2128 May, 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 I48.2 [place] [id number] [place] [address] 25259- 9405 May, [place] [id number] [place] [address] 97606- 2626 May, nursing home (current) use of anticoagulants Z79.01 [place] [address] [place] [address] 28553- 7567 May, intermediate card tender (current) use of anticoagulants Z79.01 [place] [address] [address]- 7125 May, Afib I48.91 ; Non-ischemic cardiomyopathy I42.8 ; Hypotension, unspecified hypotension type I95.9 and Heart palpitations R00.2 [place] [address] [address]- 3510 16 Apr, 2016 nursing home (current) use of anticoagulants Z79.01 [facility] [address] [address]- 1417 Apr, intermediate card tender (current) use of anticoagulants Z79.01 [facility] [address] [place] [address] 448181- 6576 Mar, intermediate card tender (current) use of anticoagulants Z79.01 [place] [id number] [place] [address] 65266- 2976 Feb, intermediate card tender (current) use of anticoagulants Z79.01 [place] [id number] [place] [address] 31354- 9166 Feb, intermediate card tender (current) use of anticoagulants Z79.01 [place] [id number] [place] [address] 09494- 8146 Jan, nursing home (current) use of anticoagulants Z79.01 [place] [id number] [place] [address] 97279- 8129 Jan, nursing home (current) use of anticoagulants Z79.01 [place] [id number] [place] [address] 12425- 1546 Dec, nursing home (current) use of anticoagulants Z79.01 [place] [id number] [place] [address] 40987- 4271 Dec, intermediate card tender (current) use of anticoagulants Z79.01 [place] [address] [place] [address] 45554- 1131 Oct, intermediate card tender (current) use of anticoagulants Z79.01 [place] [id number] [place] [address] 34789- 3448 Oct, nursing home (current) use of anticoagulants Z79.01 [place] [address] [place] [address] 93015- 1236 Oct, Afib I48.91 ; Cardiomyopathy I42.9 ; Palpitations R00.2 and Non-rheumatic tricuspid valve insufficiency I36.1 [place] [address] [place] [address] 26319- 3962 Sep, 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 I48.2 ; nursing home (current) use of anticoagulants Z79.01 ; Cardiomyopathy I42.9 and Hypertension I10 [facility] [address] [place] [address] 35430 -0253 Aug, Allergic rhinitis, unspecified allergic rhinitis type J30.9 [facility] [id number] [place] [address] 54057- 1460 Aug, intermediate card tender (current) use of anticoagulants Z79.01 [place] [id number] [place] [address] 81857- 1960 Jun, nursing home (current) use of anticoagulants Z79.01 [place] [id number] [place] [address] 73048- 9809 Jun, nursing home (current) use of anticoagulants Z79.01 [facility] [id number] [place] [address] 09673- 9957 Jun, intermediate card tender (current) use of anticoagulants Z79.01 [place] [id number] [place] [address] 92602- 4620 Jun, [place] [id number] [place] [address] 69700- 5285 May, Encounter for long-term (current) use of anticoagulants V58.61 [place] [id number] [place] [address] 65388- 2545 May, Encounter for long-term (current) use of anticoagulants V58.61 [place] [id number] [place] [address] 33434- 2570 May, Encounter for long-term (current) use of anticoagulants V58.61 [place] [address] [place] [address] 88593- 4043 Apr, Encounter for long-term (current) use of anticoagulants V58.61 [place] [id number] [place] [address] 43751- 6806 Apr, intermediate card tender (current) use of anticoagulants Z79.01 [place] [id number] [place] [address] 82053- 9447 Apr, Afib I48.91 ; Hypertension I10 ; Cardiomyopathy I42.9 and Palpitations R00.2 [place] [address] 78427- 1315 Mar, intermediate card tender (current) use of anticoagulants Z79.[address] 18926- 3625 Mar, Encounter for long-term (current) use of anticoagulants V58.[address] 03062- 6069 Mar, Encounter for long-term (current) use of anticoagulants V58.61 [place] [id number] [place] [address] 85479- 9754 Mar, intermediate card tender (current) use of anticoagulants Z79.01 and Encounter for therapeutic drug level monitoring Z51.81 [place] [id number] [place] [address] 80438- 9516 Feb, nursing home (current) use of anticoagulants Z79.01 and Encounter for therapeutic drug level monitoring Z51.81 [place] [id number] [place] [address] 44944- 2182 Feb, Encounter for long-term (current) use of anticoagulants V58.61 [place] [id number] [place] [address] 68789- 8716 Feb, [place] [id number] [place] [address] 72783- 4418 Feb, Encounter for long-term (current) use of anticoagulants V58.61 [place] [address] [place] [address]- 1697 Feb, Encounter for therapeutic drug level monitoring Z51.81 [place] [id number] [place] [address] 55149- 0516 Jan, [place] [id number] [place] [address] 53713- 2541 Dec, Encounter for long-term (current) use of anticoagulants V58.61 and Atrial fibrillation 427.31 [place] [id number] [place] [address] 48350- 8726 Dec, Chest wall muscle strain S29.011A [place] [id number] [place] [address] 97206- 6446 Nov, Encounter for long-term (current) use of anticoagulants V58.61 and Atrial fibrillation 427.31 [place] [id number] [place] [address] 18307- 1094 Nov, Atrial fibrillation 427.31 [place] [id number] [place] [address] 35268 254 Nov, [place] [id number] [place] [address] 45585 2542 Nov, Atrial fibrillation 427.31 [place] [address] [place] [address] 50347- 1434 Nov, Atrial fibrillation 427.31 [place] [address] [place] [address] 51194 2548 Oct, Encounter for long-term (current) use of anticoagulants V58.61 [place] [address] [place] [address] 43101 2546 Sep, Encounter for long-term (current) use of anticoagulants V58.61 [place] [address] [place] [address] 67192 2546 Aug, Encounter for long-term (current) use of anticoagulants V58.61 [place] [address] [place] [address]- 3419 July, [facility] [place] [facility] [address] [id number] [place] [address]- 6167 July, [facility] [place] [facility] [address] [id number] [place] [address]- 9290 July, [facility] [place] [facility] [address] [id number] [place] [address]- 2699 Jun, [facility] [place] [facility] [address] [id number] [place] [address]- 7454 Jun, [facility] [place] [facility] [address] [id number] [place] [address]- 1133 May, [facility] [place] [facility] [address] [facility] [id number] [place] [address]- 9159 May, [facility] [place] [facility] [address] [facility] [id number] [place] [address]- 0575 May, [facility] [place] [facility] [address] [facility] [id number] [place] [address]- 4114 Apr, [facility] [place] [facility] [address] [place] [id number] [place] [address]- 2582 Apr, [facility] [place] [facility] [address] [facility] [id number] [place] [address]- 0808 Apr, [facility] [place] [facility] [address] [facility] [id number] [place] [address]- 4509 Apr, [facility] [place] [facility] [address] [facility] [id number] [place] [address]- 7088 Apr, [facility] [place] [facility] [address] [id number] [place] 8303 Apr, [facility] [place] [facility] [address] [facility] [id number] [place] [address]- 9893 Apr, [facility] [place] [facility] [address] [place] [address]- 2146 Mar, [facility] [place] [facility] [address] [id number] [place] [address]- 4251 Mar, [facility] [place] [facility] [address] [id number] [place] [address]- 2070 Mar, [facility] [place] [facility] [address] [id number] [place] [address]- 3859 Mar, [facility] [place] [facility] [address] [id number] [place] [address]- 4830 Mar, [facility] [place] [facility] [address] [id number] [place] [address]- 7055 Mar, [facility] [place] [facility] [address] [id number] [place] [address]- 3980 Mar, [facility] [place] [facility] [address] [id number] [place] [address]- 4027 Mar, [facility] [place] [facility] [address] [id number] [place] [address]- 2720 Feb, [facility] [place] [facility] [address] [id number] [place] [address]- 7210 Feb, [facility] [place] [facility] [address] [id number] [place] [address]- 0902 Feb, [facility] [place] [facility] [address] [id number] [place] [address]- 5559 Feb, [facility] [place] [facility] [address] [id number] [address]- 0425 Feb, [facility] [place] [facility] [address] [id number] [place] [address]- 1200 Feb, [facility] [place] [facility] [address] [id number] [place] [address]- 7602 Jan, [facility] [place] [facility] [address] [id number] [place] [address]- 8657 Jan, [facility] [place] [facility] [address] [id number] [place] [address]- 8016 Jan, [facility] [place] [facility] [address] [id number] [place] [address]- 6647 Jan, [facility] [place] [facility] [address] [id number] [place] [address]- 1644 Jan, [facility] [place] [facility] [address] [id number] [place] [address]- 3896 Jan, [facility] [place] [facility] [address] [id number] [place] [address]- 2496 Dec, [facility] [place] [facility] [address] [id number] [place] [address]- 0594 Dec, [facility] [place] [facility] [address] [id number] [place] [address]- 8844 Dec, [facility] [place] [facility] [address] [id number] [place] [address]- 1565 Dec, [facility] [place] [facility] [address] [id number] [place] [address]- 8796 Nov, [facility] [place] [facility] [address] [id number] [place] [address]- 7588 Nov, [facility] [place] [facility] [address] [id number] [place] [address]- 9161 Oct, [facility] [place] [facility] [address] [id number] [place] [address]- 5788 Oct, [facility] [place] [facility] [address] [id number] [place] [address]- 5223 Oct, [facility] [place] [facility] [address] [id number] [place] [address]- 5772 Oct, [facility] [place] [facility] [address] [id number] [place] [address]- 2946 Oct, [facility] [place] [facility] [address] [id number] [place] [address]- 7948 Oct, [facility] [place] [facility] [address] [id number] [place] [address]- 2017 Sep, [facility] [place] [facility] [address] [id number] [place] [address]- 6556 Sep, [facility] [place] [facility] [address] [id number] [place] [address]- 0754 Sep, [facility] [place] [facility] [address] [id number] [place] [address]- 5050 Sep, [facility] [place] [facility] [address] [id number] [place] [address]- 1107 Sep, [facility] [place] [facility] [address] [id number] [place] [address]- 2704 Sep, [facility] [place] [facility] [address] [id number] [place] [address]- 1718 Sep, [facility] [place] [facility] [address] [id number] [place] [address]- 7673 Sep, [facility] [place] [facility] [address] [id number] [place] [address]- 0502 Sep, [facility] [place] [facility] [address] [id number] [place] [address]- 9936 Sep, [facility] [place] [facility] [address] [id number] [place] [address]- 4423 Sep, [facility] [place] [facility] [address] [id number] [place] [address]- 7768 Sep, [facility] [place] [facility] [address] [id number] [place] [address]- 0920 Sep, [facility] [place] [facility] [address] [id number] [place] [address]- 9969 Sep, [facility] [place] [facility] [address] [id number] [place] [address]- 4766 Feb, [facility] [place] [facility] [address] [id number], [place] [address]- 2546 Feb, [facility] [address] [facility] [id number], [place] [address]- 2546 July, [facility] [address] [facility] [id number], [place] [address]- 2546 Apr, [facility] [address] [facility] [id number], [place] [address]- 2546 Apr, [facility] [address] [facility] [id number], [place] [address]- 2546 Apr, [facility] [address] [facility] [id number], [place] [address]- 2546 Apr, IMMUNIZATIONS No Known Immunizations SOCIAL HISTORY Never Assessed REASON FOR VISIT Lab (walk-in) PLAN OF CARE VITAL SIGNS MEDICATIONS Unknown Medications RESULTS Name Result Date Reference Range INR (IN HOUSE) 2017-03-29 INR 2.2 1.10 - 3.30 PREVIOUS INR 2.4 CURRENT COUMADIN DOSE [id number] NEW COUMADIN DOSE Lot # [id number] Exp date [id number] PROCEDURES Procedure Date Ordered Result Body Site PROTHROMBIN TIME Mar 29, 2017 INSTRUCTIONS MEDICATIONS ADMINISTERED No Known Medications MEDICAL (GENERAL) HISTORY Type Description Date Medical History Atrial fibrillation Medical History hx of c. diff Medical History Stress test performed; EF 25% Last test 2015 was at 60% Medical History Palpitations Medical History Cardiac Arrest with CPR and Intubation with ET tube and transferred to [facility] Trach placed 03/2017 Surgical History Defibrillation placed 2017 Surgical History Trach/PEG Tube placed and removed [facility] after Intubation 2018 Hospitalization History ICU for Afib 09/2013 Hospitalization History Admitted to Transferred to Cardiac ICU/ Rehab 03/2017 Hospitalization History Coded, Defribrillated and ET tube placed for ventillation and transferred to [facility] 03/2017
--- OUTSIDE RECORDS SUMMARY | 2018-05-09 18:11 | XMS REPORT ---
Author Author KARI AMADOR Organization [facility] Address [address] [place] [address] Care Team Providers Care Exchange Operator Name Role Phone KARI AMADOR Unavailable PROBLEMS Type Condition ICD9-CM Code FYK81-NI Code Onset Dates Condition Status SNOMED Code Problem Hypertension I10 Active 79027354 Problem alf (current) use of anticoagulants Z79.01 Active 341352077 Problem Cardiomyopathy I42.9 Active 02701930 Problem Cardiac defibrillator in place Z95.810 Active 901713163 Problem History of cardiac arrest Z86.74 Active 648036391 Problem Non-ischemic cardiomyopathy I42.8 Active 51172394 Problem 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 I48.2 Active 891569932 Problem Current moderate episode of major depressive disorder without prior episode F32.1 Active 46539309 Problem Afib I48.91 Active 90420452 ALLERGIES No Information ENCOUNTERS Encounter Location Date Diagnosis [facility] [id number] [place] [address] 53663- 6682 Jun, [facility] [id number] [place] [address] 07218- 1878 16 May, 2017 [facility] [id number] [place] [address] 46561- 4315 15 May, 2017 [facility] [id number] [place] [address] 77123- 1151 13 May, 2017 History of cardiac arrest Z86.74 ; Cardiac defibrillator in place Z95.810 ; 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 I48.2 and Current moderate episode of major depressive disorder without prior episode F32.1 [facility] [address] [place] [address] 26935- 3561 12 May, 2017 [facility] [address] 11595- 9977 Mar, 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 [facility] [id number] [place] [address] 77750- 1645 Mar, [facility] [id number] [place] [address] 85956- 4188 Mar, alf (current) use of anticoagulants Z79.01 [facility] [id number] [place] [address] 37210- 3678 Feb, Afib I48.91 [facility] [id number] [place] [address] 34901- 0755 Feb, alf (current) use of anticoagulants Z79.01 [facility] [id number] [place] [address] 90303 -4556 Jan, Other viral agents as the cause of diseases classified elsewhere B97.89 ; Acute upper respiratory infection, unspecified J06.9 and Body aches R52 [facility] [id number] [place] [address] 06846- 3207 Jan, Afib I48.91 [facility] [id number] [place] [address] 27451- 5711 Jan, Afib I48.91 and alf (current) use of anticoagulants Z79.01 [facility] [facility] [id number] [place] [address] 28164- 5462 Dec, Afib I48.91 [facility] [id number] [place] [address] 09496- 1022 Dec, 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 I48.2 [facility] [id number] [place] [address] 48419- 3736 Nov, Hypertension I10 [facility] [id number] [place] [address] 70389- 4841 Oct, 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 I48.2 [facility] [facility] [id number] [place] [address] 92140- 3356 Oct, alf (current) use of anticoagulants Z79.01 [facility] [facility] [id number] [place] [address] 59164- 7363 Oct, 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 I48.2 [facility] [id number] [place] [address] 41785- 4409 Oct, 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 I48.2 [facility] [id number] [place] [address] 24954- 2267 Sep, 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 ; Hypertension I10 ; Cardiomyopathy I42.9 and Afib I48.91 [facility] [facility] [id number] [place] [address] 55594- 0737 Sep, 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 ; Hypertension I10 ; Cardiomyopathy I42.9 and Afib I48.91 [facility] [id number] [place] [address] 82619- 1936 Aug, 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 [facility] [id number] [place] [address] 14596- 8329 Aug, alf (current) use of anticoagulants Z79.01 [facility] [id number] [place] [address] 57902- 3221 Aug, alf (current) use of anticoagulants Z79.01 [facility] [id number] [place] [address] 64971- 7390 July, 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 [facility] [id number] [place] [address] 66405- 9669 Jun, 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 [facility] [id number] [place] [address] 67020- 6362 Jun, 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 [facility] [id number] [place] [address] 17769- 0072 20 May, 2016 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 I48.2 [facility] [address] 26792- 2249 17 May, 2016 [place] [id number] [place] [address] 85731- 0035 13 May, 2016 alf (current) use of anticoagulants Z79.01 [facility] [id number] [place] [address] 27916- 7912 May, alf (current) use of anticoagulants Z79.01 [facility] [address] 91034- 9183 May, Afib I48.91 ; Non-ischemic cardiomyopathy I42.8 ; Hypotension, unspecified hypotension type I95.9 and Heart palpitations R00.2 [facility] [facility] [id number] [place] [address] 26770- 2766 16 Apr, 2016 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 [facility] [id number] [place] [address] 27122- 3149 Apr, alf (current) use of anticoagulants Z79.01 [facility] [id number] [place] [address] 28826- 7005 Mar, 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 [facility] [id number] [place] [address] 16587- 0147 Feb, alf (current) use of anticoagulants Z79.01 [facility] [id number] [place] [address] 31628- 7893 Feb, alf (current) use of anticoagulants Z79.01 [facility] [id number] [place] [address] 49153- 7804 Jan, 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 [facility] [id number] [place] [address] 50694- 4013 Jan, alf (current) use of anticoagulants Z79.01 [facility] [id number] [place] [address] 62598- 8245 Dec, 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 [facility] [id number] [place] [address] 62571- 7954 Dec, alf (current) use of anticoagulants Z79.01 [facility] [id number] [place] [address] 44029- 3393 Oct, alf (current) use of anticoagulants Z79.01 [facility] [id number] [place] [address] 12658- 6760 Oct, alf (current) use of anticoagulants Z79.01 [facility] [id number] [place] [address] 83151- 4289 Oct, Afib I48.91 ; Cardiomyopathy I42.9 ; Palpitations R00.2 and Non-rheumatic tricuspid valve insufficiency I36.1 [facility] [address] [place] [address] 78757- 6801 Sep, 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 I48.2 ; 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 ; Cardiomyopathy I42.9 and Hypertension I10 [facility] [id number] [place] [address] 76168 -0320 Aug, Allergic rhinitis, unspecified allergic rhinitis type J30.9 [facility] [id number] [place] [address] 09662- 8899 Aug, alf (current) use of anticoagulants Z79.01 [facility] [id number] [place] [address] 78624- 7806 Jun, 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 [facility] [id number] [place] [address] 91748- 2050 Jun, alf (current) use of anticoagulants Z79.01 [place] [address] [place] [address] 74607- 0431 Jun, 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 [facility] [id number] [place] [address] 16278- 8996 Jun, [facility] [id number] [place] [address] 63775- 5386 May, Encounter for long-term (current) use of anticoagulants V58.61 [facility] [address] [place] [address] 42762- 0056 May, Encounter for long-term (current) use of anticoagulants V58.61 [facility] [address] [place] [address] 97361- 3211 May, Encounter for long-term (current) use of anticoagulants V58.61 [facility] [address] [place] [address] 51475- 6342 Apr, Encounter for long-term (current) use of anticoagulants V58.61 [facility] [id number] [place] [address] 25713- 1976 Apr, 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 [facility] [address] [place] [address] 86913- 8437 Apr, Afib I48.91 ; Hypertension I10 ; Cardiomyopathy I42.9 and Palpitations R00.2 [facility] [address] [place] [address] 47236- 1473 Mar, alf (current) use of anticoagulants Z79.01 [place] [address] 03534- 2725 Mar, Encounter for long-term (current) use of anticoagulants V58.61 [facility] [place] [address] [place] [address] 69969- 8064 Mar, Encounter for long-term (current) use of anticoagulants V58.61 [facility] [id number] [address]- 6706 Mar, alf (current) use of anticoagulants Z79.01 and Encounter for therapeutic drug level monitoring Z51.81 [facility] [id number] [address]- 3596 Feb, 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 and Encounter for therapeutic drug level monitoring Z51.81 [facility] [facility] [address] [address] 2546 Feb, Encounter for long-term (current) use of anticoagulants V58.61 [facility] [address] [address]- 0426 16 Feb, 2015 [place] [id number] [place] [address] 97772- 4046 Feb, Encounter for long-term (current) use of anticoagulants V58.61 [facility] [address] [address]- 7436 Feb, Encounter for therapeutic drug level monitoring Z51.81 [facility] [facility] [address] [address]- 6856 Jan, [facility] [address] [address] 2546 Dec, Encounter for long-term (current) use of anticoagulants V58.61 and Atrial fibrillation 427.31 [facility] [id number] [address] 2546 Dec, Chest wall muscle strain S29.011A [facility] [id number] [place] [address] 22402 2546 Nov, Encounter for long-term (current) use of anticoagulants V58.61 and Atrial fibrillation 427.31 [facility] [id number] [address] 2546 Nov, Atrial fibrillation 427.31 [facility] [address] [address] 2546 Nov, [facility] [address] [address]- 2546 Nov, Atrial fibrillation 427.31 [facility] [address] [address]- 2546 Nov, Atrial fibrillation 427.31 [facility] [address] [place] [address] 60109- 2546 Oct, Encounter for long-term (current) use of anticoagulants V58.61 [facility] [address] [place] [address] 41502- 2546 Sep, Encounter for long-term (current) use of anticoagulants V58.61 [facility] [address] [place] [address] 14824- 2546 Aug, Encounter for long-term (current) use of anticoagulants V58.61 [facility] [address] [address]- 2546 July, [facility] [address] [address]- 2546 July, [facility] [address] [address]- 2546 July, [facility] [address] [address]- 2546 Jun, [facility] [address] [address]- 2546 Jun, [facility] [address] [address]- 2546 May, [facility] [address] [address]- 2546 May, [facility] [address] [address]- 5633 May, [facility] [place] [facility] [address] [id number] [place] [address]- 5201 Apr, [facility] [place] [facility] [address] [id number] [place] [address]- 8403 Apr, [facility] [place] [facility] [address] [id number] [place] 9447 Apr, [facility] [place] [facility] [address] [id number] [place] [address]- 6458 Apr, 2014 [facility] [place] [facility] [address] [id number] [place] [address]- 3115 Apr, [facility] [place] [facility] [address] [id number] [place] [address]- 0439 Apr, [facility] [place] [facility] [address] [id number] [place] [address]- 2437 Apr, [facility] [place] [facility] [address] [id number] [place] [address]- 2705 Mar, [facility] [place] [facility] [address] [id number] [place] [address]- 4506 Mar, [facility] [place] [facility] [address] [id number] [place] [address]- 0751 Mar, [facility] [place] [facility] [address] [id number] [place] [address]- 6226 Mar, [facility] [place] [facility] [address] [id number] [place] [address]- 1672 Mar, [facility] [place] [facility] [address] [id number] [place] [address]- 2720 Mar, [facility] [place] [facility] [address] [id number] [place] [address]- 8113 Mar, [facility] [place] [facility] [address] [id number] [place] [address]- 1801 Mar, [facility] [place] [facility] [address] [id number] [place] [address]- 5672 Feb, [facility] [place] [facility] [address] [id number] [place] [address]- 5844 Feb, [facility] [place] [facility] [address] [id number] [place] 0514 Feb, [facility] [place] [facility] [address] [id number] [place] [address]- 1991 Feb, [facility] [place] [facility] [address] [id number] [place] [address]- 5635 Feb, [facility] [place] [facility] [address] [id number] [place] 7532 Feb, [facility] [place] [facility] [address] [id number] [place] [address]- 7875 Jan, [facility] [place] [facility] [address] [id number] [place] [address]- 0400 Jan, [facility] [place] [facility] [address] [id number] [place] [address]- 1812 Jan, [facility] [place] [facility] [address] [id number] [place] [address]- 3960 Jan, [facility] [place] [facility] [address] [facility] [id number] [place] [address]- 8988 Jan, [facility] [place] [facility] [address] [id number] [place] [address]- 9491 Jan, [facility] [place] [facility] [address] [id number] [place] [address]- 4735 Dec, [facility] [place] [facility] [address] [id number] [place] [address]- 6462 Dec, [facility] [place] [facility] [address] [id number] [place] [address]- 0060 Dec, [facility] [place] [facility] [address] [id number] [place] [address]- 8580 Dec, [facility] [place] [facility] [address] [id number] [place] [address]- 0258 Nov, [facility] [place] [facility] [address] [id number] [place] [address]- 2328 Nov, [facility] [place] [facility] [address] [id number] [place] [address]- 0668 Oct, [facility] [place] [facility] [address] [id number] [place] [address]- 0584 Oct, [facility] [place] [facility] [address] [id number] [place] [address]- 7978 Oct, [facility] [place] [facility] [address] [id number] [place] [address]- 7791 Oct, [facility] [place] [facility] [address] [id number] [place] [address]- 3630 Oct, [facility] [place] [facility] [address] [id number] [place] [address]- 4263 Oct, [facility] [place] [facility] [address] [id number] [place] [address]- 6918 Sep, [facility] [place] [facility] [address] [id number] [place] [address]- 2761 Sep, [facility] [place] [facility] [address] [id number] [place] [address]- 8493 Sep, [facility] [place] [facility] [address] [id number] [place] [address]- 6249 Sep, [facility] [place] [facility] [address] [id number] [place] [address]- 1502 Sep, [facility] [place] [facility] [address] [id number] [place] [address]- 5103 Sep, [facility] [place] [facility] [address] [id number] [place] [address]- 0580 Sep, [facility] [place] [facility] [address] [id number] [address]- 5296 Sep, [facility] [address] [address]- 8560 Sep, [facility] [address] [address]- 5292 Sep, [facility] [address] [address]- 2214 Sep, [facility] [address] [address]- 9988 Sep, [facility] [address] [place] [address] 68252- 9380 Sep, [facility] [address] [address]- 3890 Sep, [facility] [id number] [place] [address] 48379- 0473 Feb, [facility] [address] [address]- 1455 Feb, [facility] [address] [address]- 6230 July, [facility] [address] [address]- 2767 Apr, [facility] [address] [address]- 0552 Apr, [facility] [address] [address]- 6259 Apr, [facility] [address] [address]- 1053 Apr, IMMUNIZATIONS No Known Immunizations SOCIAL HISTORY Never Assessed REASON FOR VISIT Deferred INR PLAN OF CARE VITAL SIGNS MEDICATIONS Unknown [...] Intubation with ET tube and transferred to [facility] Trach placed 03/2017 Surgical History Defibrillation placed 2017 Surgical History Trach/PEG Tube placed and removed [facility] after Intubation 2017 Hospitalization History ICU for Afib 09/2013 Hospitalization History Admitted to Transferred to Cardiac ICU/ Rehab 03/2017 Hospitalization History Coded, Defribrillated and ET tube placed for ventillation and transferred to [facility] 03/2017
--- OUTSIDE RECORDS SUMMARY | 2018-05-09 18:11 | XMS REPORT ---
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 173683089 Problem Cardiomyopathy I42.9 Active 18793005 Problem 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 I48.2 Active 444241693 Problem Post-cardiac injury syndrome I24.1 Active 38934998 Problem Anoxic brain injury G93.1 Active 338465940 Problem Hypertension I10 Active 49309555 Problem Adjustment disorder with depressed mood F43.21 Active 86003235 Problem Cardiac defibrillator in place Z95.810 Active 939556759 Problem Afib I48.91 Active 14585207 Problem Non-ischemic cardiomyopathy I42.8 Active 49410262 Problem History of cardiac arrest Z86.74 Active 046552761 Problem Current moderate episode of major depressive disorder without prior episode F32.1 Active 30188834 ALLERGIES No Information ENCOUNTERS Encounter Location Date Diagnosis [facility], [place] [id number] [place] [address] 92754- 0474 July, [facility], [place] [id number] [place] [address] 48944- 0388 July, [facility], [place] [id number] [place] [address] 47348- 3070 Jun, Adjustment disorder with depressed mood F43.21 [facility], [place] [id number] [place] [address] 21472- 8323 Jun, [facility], [place] [id number] [place] [address] 10330- 8013 Jun, [facility], [place] [id number] [place] [address] 17267- 2605 29 May, 2017 [facility], [place] [id number] [place] [address] 28352- 9875 26 May, 2017 [facility], [place] [id number] [place] [address] 62359- 0181 16 May, 2017 [facility], [place] [id number] [place] [address] 03999- 3826 15 May, 2017 [facility], [place] [id number] [place] [address] 13626- 5956 13 May, 2017 History of cardiac arrest Z86.74 ; Cardiac defibrillator in place Z95.810 ; 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 I48.2 and Current moderate episode of major depressive disorder without prior episode F32.1 [place] [id number] [place] [address] 60306- 6489 12 May, 2017 [facility], [place] [id number] [place] [address] 43651- 1612 Mar, longterm (current) use of anticoagulants Z79.01 [facility], [place] [id number] [place] [address] 92173- 6138 Mar, [facility], [place] [id number] [place] [address] 80630- 0690 Mar, 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 [facility], [place] [id number] [place] [address] 96922- 3353 Feb, Afib I48.91 [facility], [place] [id number] [place] [address] 01657- 7860 Feb, longterm (current) use of anticoagulants Z79.01 [facility] [id number] [place] [address] 56085 -0078 Jan, Other viral agents as the cause of diseases classified elsewhere B97.89 ; Acute upper respiratory infection, unspecified J06.9 and Body aches R52 [place] [address] [place] [address]- 2437 Jan, Afib I48.91 [place] [id number] [place] [address] 84609- 7766 Jan, Afib I48.91 and 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 [place] [id number] [place] [address] 58236- 7856 Dec, Afib I48.91 [place] [id number] [place] [address] 87590- 4889 Dec, 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 I48.2 [place] [id number] [place] [address] 13538- 5019 Nov, Hypertension I10 [place] [id number] [place] [address] 86626- 8186 Oct, 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 I48.2 [place] [id number] [place] [address] 90365- 7065 Oct, longterm (current) use of anticoagulants Z79.01 [place] [id number] [place] [address] 48593- 3562 Oct, 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 I48.2 [place] [id number] [place] [address] 46800- 3528 Oct, 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 I48.2 [place] [id number] [place] [address] 37596- 0365 Sep, longterm (current) use of anticoagulants Z79.01 ; Hypertension I10 ; Cardiomyopathy I42.9 and Afib I48.91 [place] [id number] [place] [address] 42685- 3047 Sep, 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 ; Hypertension I10 ; Cardiomyopathy I42.9 and Afib I48.91 [place] [id number] [place] [address] 41115- 5982 Aug, 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 [place] [address] [address]- 3432 Aug, 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 [place] [address] [address]- 7326 Aug, longterm (current) use of anticoagulants Z79.01 [place] [id number] [place] [address] 56899- 7595 July, 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 [place] [address] [place] [address] 92218- 7442 Jun, 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 [place] [id number] [place] [address] 00675- 3784 Jun, 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 [place] [id number] [place] [address] 89724- 7079 May, 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 I48.2 [place] [id number] [place] [address] 85539- 5923 May, [place] [id number] [place] [address] 25052- 6105 May, longterm (current) use of anticoagulants Z79.01 [place] [address] [place] [address] 31675- 6744 May, 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 [place] [address] [address]- 5408 May, Afib I48.91 ; Non-ischemic cardiomyopathy I42.8 ; Hypotension, unspecified hypotension type I95.9 and Heart palpitations R00.2 [place] [address] [address]- 8559 16 Apr, 2016 longterm (current) use of anticoagulants Z79.01 [facility], [place] [address] [address]- 9375 Apr, 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 [facility], [place] [address] [place] [address] 855734- 1496 Mar, 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 [place] [id number] [place] [address] 61962- 1816 Feb, 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 [place] [id number] [place] [address] 92916- 4086 Feb, 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 [place] [id number] [place] [address] 68973- 5230 Jan, longterm (current) use of anticoagulants Z79.01 [place] [id number] [place] [address] 74046- 8164 Jan, longterm (current) use of anticoagulants Z79.01 [place] [id number] [place] [address] 95884- 0863 Dec, longterm (current) use of anticoagulants Z79.01 [place] [id number] [place] [address] 71125- 3358 Dec, 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 [place] [address] [place] [address] 49042- 9812 Oct, 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 [place] [id number] [place] [address] 34828- 4352 Oct, longterm (current) use of anticoagulants Z79.01 [place] [address] [place] [address] 18200- 5640 Oct, Afib I48.91 ; Cardiomyopathy I42.9 ; Palpitations R00.2 and Non-rheumatic tricuspid valve insufficiency I36.1 [place] [address] [place] [address] 36327- 6368 Sep, 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 I48.2 ; longterm (current) use of anticoagulants Z79.01 ; Cardiomyopathy I42.9 and Hypertension I10 [facility] [id number] [place] [address] 90339 -2671 Aug, Allergic rhinitis, unspecified allergic rhinitis type J30.9 [facility], [place] [id number] [place] [address] 95724- 4358 Aug, 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 [place] [id number] [place] [address] 75806- 8438 Jun, longterm (current) use of anticoagulants Z79.01 [place] [id number] [place] [address] 54843- 1414 Jun, longterm (current) use of anticoagulants Z79.01 [facility], [place] [id number] [place] [address] 95072- 9829 Jun, 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 [place] [id number] [place] [address] 45433- 3644 Jun, [place] [id number] [place] [address] 61982- 9792 May, Encounter for long-term (current) use of anticoagulants V58.61 [place] [id number] [place] [address] 55605- 254 May, Encounter for long-term (current) use of anticoagulants V58.61 [place] [id number] [place] [address] 11168- 0524 May, Encounter for long-term (current) use of anticoagulants V58.61 [place] [address] [place] [address] 03475- 7321 Apr, Encounter for long-term (current) use of anticoagulants V58.61 [place] [id number] [place] [address] 24687- 5318 Apr, 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 [place] [id number] [place] [address] 42011- 2800 Apr, Afib I48.91 ; Hypertension I10 ; Cardiomyopathy I42.9 and Palpitations R00.2 [place] [address] 21755- 9699 Mar, 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 69327- 6472 Mar, Encounter for long-term (current) use of anticoagulants V58.[address] 82735- 8343 Mar, Encounter for long-term (current) use of anticoagulants V58.61 [place] [id number] [place] [address] 64057- 8307 Mar, 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 and Encounter for therapeutic drug level monitoring Z51.81 [place] [id number] [place] [address] 68834- 7199 Feb, longterm (current) use of anticoagulants Z79.01 and Encounter for therapeutic drug level monitoring Z51.81 [place] [id number] [place] [address] 03316- 3810 Feb, Encounter for long-term (current) use of anticoagulants V58.61 [place] [id number] [place] [address] 68263- 5196 Feb, [place] [id number] [place] [address] 15079- 6727 Feb, Encounter for long-term (current) use of anticoagulants V58.61 [place] [address] [place] [address]- 5530 Feb, Encounter for therapeutic drug level monitoring Z51.81 [place] [id number] [place] [address] 43052- 4966 Jan, [place] [id number] [place] [address] 24641- 2540 Dec, Encounter for long-term (current) use of anticoagulants V58.61 and Atrial fibrillation 427.31 [place] [id number] [place] [address] 03358- 2396 Dec, Chest wall muscle strain S29.011A [place] [id number] [place] [address] 58358- 0046 Nov, Encounter for long-term (current) use of anticoagulants V58.61 and Atrial fibrillation 427.31 [place] [id number] [place] [address] 61330- 4029 Nov, Atrial fibrillation 427.31 [place] [id number] [place] [address] 25484 2544 Nov, [place] [id number] [place] [address] 23249 2545 Nov, Atrial fibrillation 427.31 [place] [address] [place] [address] 52760- 7034 Nov, Atrial fibrillation 427.31 [place] [address] [place] [address] 56637 2541 Oct, Encounter for long-term (current) use of anticoagulants V58.61 [place] [address] [place] [address] 21981 2546 Sep, Encounter for long-term (current) use of anticoagulants V58.61 [place] [address] [place] [address] 53684 2546 Aug, Encounter for long-term (current) use of anticoagulants V58.61 [place] [address] [place] [address]- 2435 July, [facility] [place] [facility] [address] [id number] [place] [address]- 2935 July, [facility] [place] [facility] [address] [id number] [place] [address]- 2071 July, [facility] [place] [facility] [address] [id number] [place] [address]- 1638 Jun, [facility] [place] [facility] [address] [id number] [place] [address]- 1412 Jun, [facility] [place] [facility] [address] [id number] [place] [address]- 6768 May, [facility] [place] [facility] [address] [facility] [id number] [place] [address]- 6552 May, [facility] [place] [facility] [address] [facility] [id number] [place] [address]- 2330 May, [facility] [place] [facility] [address] [facility] [id number] [place] [address]- 1009 Apr, [facility] [place] [facility] [id number] [place] [address]- 4635 Apr, [facility] [place] [facility] [address] [facility] [id number] [place] [address]- 4905 Apr, [facility] [place] [facility] [address] [facility] [id number] [place] [address]- 5509 Apr, [facility] [place] [facility] [address] [facility] [id number] [place] [address]- 5770 Apr, [facility] [place] [facility] [address] [id number] [place] 5571 Apr, [facility] [place] [facility] [address] [facility] [id number] [place] [address]- 8441 Apr, [facility] [place] [facility] [address] [place] [address]- 4776 Mar, [facility] [place] [facility] [address] [id number] [place] [address]- 4424 Mar, [facility] [place] [facility] [address] [id number] [place] [address]- 6308 Mar, [facility] [place] [facility] [address] [id number] [place] [address]- 7129 Mar, [facility] [place] [facility] [address] [id number] [place] [address]- 2652 Mar, [facility] [place] [facility] [address] [id number] [place] [address]- 8029 Mar, [facility] [place] [facility] [address] [id number] [place] [address]- 9217 Mar, [facility] [place] [facility] [address] [id number] [place] [address]- 9554 Mar, [facility] [place] [facility] [address] [id number] [place] [address]- 1288 Feb, [facility] [place] [facility] [address] [id number] [place] [address]- 9518 Feb, [facility] [place] [facility] [address] [id number] [place] [address]- 3886 Feb, [facility] [place] [facility] [address] [id number] [place] [address]- 6493 Feb, [facility] [place] [facility] [address] [id number] [address]- 5666 Feb, [facility] [place] [facility] [address] [id number] [place] [address]- 2784 Feb, [facility] [place] [facility] [address] [id number] [place] [address]- 9237 Jan, [facility] [place] [facility] [address] [id number] [place] [address]- 8213 Jan, [facility] [place] [facility] [address] [id number] [place] [address]- 7091 Jan, [facility] [place] [facility] [address] [id number] [place] [address]- 3164 Jan, [facility] [place] [facility] [address] [id number] [place] [address]- 4893 Jan, [facility] [place] [facility] [address] [id number] [place] [address]- 9872 Jan, [facility] [place] [facility] [address] [id number] [place] [address]- 2055 Dec, [facility] [place] [facility] [address] [id number] [place] [address]- 4129 Dec, [facility] [place] [facility] [address] [id number] [place] [address]- 1502 Dec, [facility] [place] [facility] [address] [id number] [place] [address]- 9444 Dec, [facility] [place] [facility] [address] [id number] [place] [address]- 9062 Nov, [facility] [place] [facility] [address] [id number] [place] [address]- 6877 Nov, [facility] [place] [facility] [address] [id number] [place] [address]- 7347 Oct, [facility] [place] [facility] [address] [id number] [place] [address]- 5374 Oct, [facility] [place] [facility] [address] [id number] [place] [address]- 0191 Oct, [facility] [place] [facility] [address] [id number] [place] [address]- 2827 Oct, [facility] [place] [facility] [address] [id number] [place] [address]- 2221 Oct, [facility] [place] [facility] [address] [id number] [place] [address]- 7179 Oct, [facility] [place] [facility] [address] [id number] [place] [address]- 9341 Sep, [facility] [place] [facility] [address] [id number] [place] [address]- 1738 Sep, [facility] [place] [facility] [address] [id number] [place] [address]- 9490 Sep, [facility] [place] [facility] [address] [id number] [place] [address]- 9081 Sep, [facility] [place] [facility] [address] [id number] [place] [address]- 3958 Sep, [facility] [place] [facility] [address] [id number] [place] [address]- 3090 Sep, [facility] [place] [facility] [address] [id number] [place] [address]- 7880 Sep, [facility] [place] [facility] [address] [id number] [place] [address]- 0790 Sep, [facility] [place] [facility] [address] [id number] [place] [address]- 8547 Sep, [facility] [place] [facility] [address] [id number] [place] [address]- 6662 Sep, [facility] [place] [facility] [address] [id number] [place] [address]- 8345 Sep, [facility] [place] [facility] [address] [id number] [place] [address]- 1793 Sep, [facility] [place] [facility] [address] [id number] [place] [address]- 2954 Sep, [facility] [place] [facility] [address] [id number] [place] [address]- 6450 Sep, [facility] [place] [facility] [address] [id number] [place] [address]- 4483 Feb, [facility] [place] [facility] [address] [id number], [place] [address]- 2546 Feb, [facility] [place] [address] [facility] [id number], [place] [address]- 2546 July, [facility] [place] [address] [facility] [id number], [place] [address]- 2546 Apr, [facility] [place] [address] [facility] [id number], [place] [address]- 2546 Apr, [facility] [place] [address] [facility] [id number], [place] [address]- 2546 Apr, [facility] [place] [address] [facility] [id number], [place] [address]- 2546 Apr, IMMUNIZATIONS No Known Immunizations SOCIAL HISTORY Never Assessed REASON FOR VISIT Refill request PLAN OF CARE VITAL SIGNS MEDICATIONS Medication Instructions Dosage Frequency Start Date End Date Duration Status Coumadin 3 MG TAKE ONE TABLET BY MOUTH ONCE DAILY ON MONDAY, MONDAY, MONDAY AND MONDAY 50 Active RESULTS No Results PROCEDURES No Known [...] and removed [facility] after Intubation 2017 Hospitalization History ICU for Afib 09/2013 Hospitalization History Admitted to Transferred to Cardiac ICU/ Rehab 03/2017 Hospitalization History Coded, Defribrillated and ET tube placed for ventillation and transferred to [facility] 03/2017
[2018-05-09] MEDS ORDERED: CALC-471 PO (18:12)
--- OUTSIDE RECORDS SUMMARY | 2018-05-09 18:12 | XMS REPORT ---
Author Author KARI AMADOR [facility] Address [address] [place] [address] Care Team Providers Care Community Case Manager Name Role Phone KARI AMADOR Unavailable PROBLEMS Type Condition ICD9-CM Code [id number] Code Onset Dates Condition Status SNOMED Code Problem long term care social worker (current) use of anticoagulants Z79.01 Active 973461740 Problem Cardiomyopathy I42.9 Active 49119847 Problem 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 I48.2 Active 306497967 Problem Post-cardiac injury syndrome I24.1 Active 86648177 Problem Anoxic brain injury G93.1 Active 133757711 Problem Hypertension I10 Active 36965784 Problem Adjustment disorder with depressed mood F43.21 Active 80590136 Problem Cardiac defibrillator in place Z95.810 Active 937176086 Problem Afib I48.91 Active 18677100 Problem Non-ischemic cardiomyopathy I42.8 Active 65121676 Problem History of cardiac arrest Z86.74 Active 814418491 Problem Current moderate episode of major depressive disorder without prior episode F32.1 Active 95476183 ALLERGIES No Information ENCOUNTERS Encounter Location Date Diagnosis [facility] [id number] [place] [address] 06715- 9187 Jun, Adjustment disorder with depressed mood F43.21 [facility] [id number] [place] [address] 65391- 1953 Jun, [facility] [id number] [place] [address] 25325- 5090 Jun, [facility] [id number] [place] [address] 05624- 8182 May, [facility] [id number] [place] [address] 95409- 5355 May, [facility] [address] [place] [address]- 6439 16 May, 2017 [facility] [id number] [place] [address] 22174- 2442 15 May, 2017 [facility] [id number] [place] [address] 14026- 0402 13 May, 2017 History of cardiac arrest Z86.74 ; Cardiac defibrillator in place Z95.810 ; 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 I48.2 and Current moderate episode of major depressive disorder without prior episode F32.1 [facility] [id number] [place] [address] 70343- 2923 12 May, 2017 [facility] [address] 78378- 1878 16 Mar, 2017 penitentiary (current) use of anticoagulants Z79.01 [facility] [id number] [place] [address] 68018- 6590 Mar, [facility] [address] 29458- 6588 Mar, long term care social worker (current) use of anticoagulants Z79.01 [facility] [id number] [place] [address] 37666- 0599 Feb, Afib I48.91 [facility] [id number] [place] [address] 62186- 9374 Feb, penitentiary (current) use of anticoagulants Z79.01 [facility] [address] [place] [address] 63400 -0836 Jan, Other viral agents as the cause of diseases classified elsewhere B97.89 ; Acute upper respiratory infection, unspecified J06.9 and Body aches R52 [facility] [id number] [place] [address] 39602- 2951 17 Jan, 2017 Afib I48.91 [facility] [id number] [place] [address] 65885- 1595 09 Jan, 2017 Afib I48.91 and penitentiary (current) use of anticoagulants Z79.01 [facility] [address] [address] 0897 Dec, Afib I48.91 [facility] [id number] [place] [address] 72988- 3867 Dec, 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 I48.2 [facility] [id number] [place] [address] 16356- 5322 Nov, Hypertension I10 [facility] [id number] [place] [address] 93035- 5592 Oct, 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 I48.2 [facility] [id number] [place] [address] 58035- 2123 Oct, long term care social worker (current) use of anticoagulants Z79.01 [facility] [id number] [place] [address] 63893- 9037 Oct, Chronic atrial fibrillation I48.2 [facility] [id number] [place] [address] 15757- 6359 Oct, Chronic atrial fibrillation I48.2 [facility] [id number] [place] [address] 00776- 9762 Sep, long term care social worker (current) use of anticoagulants Z79.01 ; Hypertension I10 ; Cardiomyopathy I42.9 and Afib I48.91 [facility] [id number] [place] [address] 06208- 6297 Sep, long term care social worker (current) use of anticoagulants Z79.01 ; Hypertension I10 ; Cardiomyopathy I42.9 and Afib I48.91 [facility] [id number] [place] [address] 10820- 1333 Aug, penitentiary (current) use of anticoagulants Z79.01 [facility] [address] [place] [address] 52880- 1092 Aug, penitentiary (current) use of anticoagulants Z79.01 [facility] [address] [address]- 0385 Aug, long term care social worker (current) use of anticoagulants Z79.01 [facility] [id number] [place] [address] 57930- 0127 July, penitentiary (current) use of anticoagulants Z79.01 [facility] [address] [place] [address] 28968- 3964 Jun, penitentiary (current) use of anticoagulants Z79.01 [facility] [id number] [place] [address] 45091- 6777 Jun, penitentiary (current) use of anticoagulants Z79.01 [facility] [id number] [place] [address] 31664- 9019 May, Chronic atrial fibrillation I48.2 [facility] [id number] [place] [address] 44993- 1181 May, [facility] [id number] [place] [address] 78511- 2919 May, long term care social worker (current) use of anticoagulants Z79.01 [facility] [address] [place] [address] 38031- 1702 May, penitentiary (current) use of anticoagulants Z79.01 [facility] [address] [place] [address] 81071- 2540 May, Afib I48.91 ; Non-ischemic cardiomyopathy I42.8 ; Hypotension, unspecified hypotension type I95.9 and Heart palpitations R00.2 [facility] [address] [place] [address] 58733- 2405 16 Apr, 2016 penitentiary (current) use of anticoagulants Z79.01 [facility] [address] [place] [address] 60616- 3566 13 Apr, 2016 long term care social worker (current) use of anticoagulants Z79.01 [facility] [id number] [address]- 3731 Mar, penitentiary (current) use of anticoagulants Z79.01 [facility] [id number] [place] [address] 31432- 5849 Feb, penitentiary (current) use of anticoagulants Z79.01 [facility] [id number] [place] [address] 561148- 3216 Feb, long term care social worker (current) use of anticoagulants Z79.01 [facility] [id number] [place] [address] 21327- 8961 Jan, long term care social worker (current) use of anticoagulants Z79.01 [facility] [id number] [place] [address] 41268- 0172 Jan, long term care social worker (current) use of anticoagulants Z79.01 [facility] [id number] [place] [address] 86736- 4473 Dec, long term care social worker (current) use of anticoagulants Z79.01 [facility] [id number] [place] [address] 98388- 8823 Dec, long term care social worker (current) use of anticoagulants Z79.01 [facility] [address] [place] [address] 19351- 0429 Oct, long term care social worker (current) use of anticoagulants Z79.01 [facility] [id number] [place] [address] 50614- 4802 Oct, penitentiary (current) use of anticoagulants Z79.01 [facility] [address] [place] [address] 99185- 3505 Oct, Afib I48.91 ; Cardiomyopathy I42.9 ; Palpitations R00.2 and Non-rheumatic tricuspid valve insufficiency I36.1 [facility] [address] [place] [address] 21879- 5302 Sep, Chronic atrial fibrillation I48.2 ; penitentiary (current) use of anticoagulants Z79.01 ; Cardiomyopathy I42.9 and Hypertension I10 [facility] [address] [place] [address] 92879 -0150 Aug, Allergic rhinitis, unspecified allergic rhinitis type J30.9 [facility] [address] [place] [address] 29410 2546 Aug, long term care social worker (current) use of anticoagulants Z79.01 [facility] [id number] [place] [address] 79744 2546 Jun, penitentiary (current) use of anticoagulants Z79.01 [facility] [id number] [place] [address] 68546 2546 Jun, penitentiary (current) use of anticoagulants Z79.01 [facility] [place] [id number] [place] [address] 71925 2546 Jun, long term care social worker (current) use of anticoagulants Z79.01 [facility] [id number] [place] [address] 44174- 0696 Jun, [facility] [id number] [place] [address] 89091 2543 May, Encounter for long-term (current) use of anticoagulants V58.61 [facility] [address] [place] [address] 26460- 2549 May, Encounter for long-term (current) use of anticoagulants V58.61 [facility] [address] [place] [address] 33394 2547 May, Encounter for long-term (current) use of anticoagulants V58.61 [facility] [id number] [place] [address] 78159 2546 Apr, Encounter for long-term (current) use of anticoagulants V58.61 [facility] [address] [place] [address] 25503 2546 Apr, long term care social worker (current) use of anticoagulants Z79.01 [facility] [id number] [place] [address] 10343- 7774 Apr, Afib I48.91 ; Hypertension I10 ; Cardiomyopathy I42.9 and Palpitations R00.2 [facility] [id number] [place] [address] 57379- 8529 Mar, penitentiary (current) use of anticoagulants Z79.01 [place] [address] 68348- 1023 Mar, Encounter for long-term (current) use of anticoagulants V58.61 [facility] [id number] [place] [address] 03049- 6113 Mar, Encounter for long-term (current) use of anticoagulants V58.61 [facility] [id number] [place] [address] 78687- 9987 Mar, long term care social worker (current) use of anticoagulants Z79.01 and Encounter for therapeutic drug level monitoring Z51.81 [facility] [id number] [place] [address] 28022- 6481 Feb, penitentiary (current) use of anticoagulants Z79.01 and Encounter for therapeutic drug level monitoring Z51.81 [facility] [id number] [place] [address] 24426- 1737 Feb, Encounter for long-term (current) use of anticoagulants V58.61 [facility] [id number] [place] [address] 89176- 7358 Feb, [facility] [id number] [place] [address] 38769- 1406 Feb, Encounter for long-term (current) use of anticoagulants V58.61 [facility] [id number] [place] [address] 86647- 2035 Feb, Encounter for therapeutic drug level monitoring Z51.81 [facility] [id number] [place] [address] 80819- 8728 Jan, [facility] [id number] [address]- 5946 Dec, Encounter for long-term (current) use of anticoagulants V58.61 and Atrial fibrillation 427.31 [facility] [id number], [place] [address] 2546 Dec, Chest wall muscle strain S29.011A [place] [address] [place] [address] 52126 2546 Nov, Encounter for long-term (current) use of anticoagulants V58.61 and Atrial fibrillation 427.31 [facility] [address] [place] [address] 05565 2546 Nov, Atrial fibrillation 427.31 [place] [address] [place] [address] 47031 2546 Nov, [place] [place] [address] [place] [address] 08453 2546 Nov, Atrial fibrillation 427.31 [place] [address] [place] [address] 59937 2546 Nov, Atrial fibrillation 427.31 [place] [address] [place] [address] 40515 2546 Oct, Encounter for long-term (current) use of anticoagulants V58.61 [facility] [id number], [place] [address] 2546 Sep, Encounter for long-term (current) use of anticoagulants V58.61 [facility] [id number] [address] 2546 Aug, Encounter for long-term (current) use of anticoagulants V58.61 [facility] [address], [place] [address] 2546 July, [place] [id number], [place] [address] 2546 July, [place] [id number] [place] [address]- 8298 July, [facility] [place] [facility] [address] [id number] [place] [address]- 9495 Jun, [facility] [place] [facility] [address] [id number] [place] [address]- 2283 Jun, [facility] [place] [facility] [address] [id number] [place] [address]- 3289 May, [facility] [place] [facility] [address] [id number] [place] [address]- 0415 May, [facility] [place] [facility] [address] [id number] [place] [address]- 6384 May, [facility] [place] [facility] [address] [facility] [id number] [place] [address]- 3261 Apr, [facility] [place] [facility] [address] [facility] [id number] [place] [address]- 7107 Apr, [facility] [place] [facility] [address] [facility] [id number] [place] [address]- 5335 Apr, [facility] [place] [facility] [address] [facility] [id number] [place] [address]- 7735 Apr, [facility] [place] [facility] [address] [facility] [id number] [place] [address]- 2532 Apr, [facility] [place] [facility] [address] [facility] [id number] [place] [address]- 0344 Apr, [facility] [place] [facility] [address] [facility] [id number] [place] [address]- 7075 Apr, [facility] [place] [facility] [address] [facility] [id number] [place] [address]- 2466 Mar, [facility] [place] [facility] [address] [facility] [id number] [place] [address]- 1756 Mar, [facility] [place] [facility] [address] [facility] [id number] [place] [address]- 6054 14 Mar, 2014 [facility] [place] [facility] [address] [id number] [place] [address]- 7725 14 Mar, 2014 [facility] [place] [facility] [address] [id number] [place] [address]- 6352 Mar, [facility] [place] [facility] [address] [id number] [place] [address]- 6953 Mar, [facility] [place] [facility] [address] [id number] [place] [address]- 3631 Mar, [facility] [place] [facility] [address] [id number] [place] [address]- 6949 Mar, [facility] [place] [facility] [address] [id number] [place] [address]- 9158 Feb, [facility] [place] [facility] [address] [id number] [place] [address]- 0917 Feb, [facility] [place] [facility] [address] [id number] [place] [address]- 9716 Feb, [facility] [place] [facility] [address] [id number] [place] [address]- 0511 Feb, [facility] [place] [facility] [address] [id number] [place] [address]- 0357 Feb, [facility] [place] [facility] [address] [id number] [place] [address]- 8891 Feb, [facility] [place] [facility] [address] [id number], [place] [address]- 0613 Jan, [facility] [place] [facility] [address] [id number] [place] [address]- 1835 Jan, [facility] [place] [facility] [address] [id number] [place] [address]- 9067 Jan, [facility] [place] [facility] [address] [id number] [place] [address]- 1380 Jan, [facility] [place] [facility] [address] [id number] [place] [address]- 4788 Jan, [facility] [place] [facility] [address] [id number] [place] [address]- 0463 Jan, [facility] [place] [facility] [address] [id number] [place] 3210 Dec, [facility] [place] [facility] [address] [id number] [place] [address]- 4276 Dec, [facility] [place] [facility] [address] [id number] [place] [address]- 4910 Dec, [facility] [place] [facility] [address] [id number] [place] [address]- 0330 Dec, [facility] [place] [facility] [address] [id number] [place] [address]- 7349 Nov, [facility] [place] [facility] [address] [id number] [place] [address]- 6674 Nov, [facility] [place] [facility] [address] [id number] [place] [address]- 7797 Oct, [facility] [place] [facility] [address] [id number] [place] [address]- 2450 Oct, [facility] [place] [facility] [address] [id number] [place] [address]- 3392 Oct, [facility] [place] [facility] [address] [id number] [place] [address]- 4954 Oct, [facility] [place] [facility] [address] [id number] [place] [address]- 4945 Oct, [facility] [place] [facility] [address] [id number] [place] [address]- 7878 Oct, [facility] [place] [facility] [address] [id number] [place] [address]- 1369 Sep, [facility] [place] [facility] [address] [id number] [place] [address]- 0166 Sep, [facility] [place] [facility] [address] [id number] [place] [address]- 6656 Sep, [facility] [place] [facility] [address] [id number] [place] [address]- 8872 Sep, [facility] [place] [facility] [address] [id number] [place] [address]- 1432 Sep, [facility] [place] [facility] [address] [id number] [place] [address]- 5913 Sep, [facility] [place] [facility] [address] [id number] [place] [address]- 8648 Sep, [facility] [place] [facility] [address] [id number] [place] [address]- 6969 Sep, [facility] [place] [facility] [address] [id number] [place] [address]- 6426 Sep, [facility] [place] [facility] [address] [id number] [place] [address]- 6907 Sep, [facility] [place] [facility] [address] [id number] [place] [address]- 5760 Sep, [facility] [place] [facility] [address] [id number] [place] [address]- 3802 Sep, [facility] [place] [facility] [address] [id number] [place] [address]- 7598 Sep, [facility] [place] [facility] [address] [id number] [place] [address]- 1213 Sep, [facility] [place] [facility] [address] [id number] [place] [address]- 6325 Feb, [facility] [place] [facility] [address] [id number] [place] [address]- 9943 Feb, [facility] [place] [facility] [address] [id number] [place] [address]- 4891 July, [facility] [place] [facility] [address] [id number], [place] [address]- 2546 Apr, [facility] [address] [facility] [id number], [place] [address]- 2546 Apr, [facility] [address] [facility] [id number], [place] [address]- 2546 Apr, [facility] [address] [facility] [id number], [place] [address]- 2546 Apr, IMMUNIZATIONS No Known Immunizations SOCIAL HISTORY Never Assessed REASON FOR VISIT Refill request PLAN OF CARE VITAL SIGNS MEDICATIONS Medication Instructions Dosage Frequency Start Date End Date Duration Status Cardizem CD 240 MG take 1 capsule by Oral route 1 time per day Jan, Active RESULTS No Results PROCEDURES No Known procedures INSTRUCTIONS MEDICATIONS ADMINISTERED No Known Medications MEDICAL (GENERAL) HISTORY Type Description Date Medical History Atrial fibrillation Medical History hx of c. diff Medical History Stress test performed; EF 25% Last test 2015 was at 60% Medical History Palpitations Medical History Cardiac Arrest with CPR and Intubation with ET tube and transferred to [facility] Trach placed 03/2017 Surgical History Defibrillation placed 2017 Surgical History Trach/PEG Tube placed and removed [facility] after Intubation 2018 Hospitalization History ICU for Afib 09/2013 Hospitalization History Admitted to Transferred to Cardiac ICU/ Rehab 03/2017 Hospitalization History Coded, Defribrillated and ET tube placed for ventillation and transferred to [facility] 03/2017
--- OUTSIDE RECORDS SUMMARY | 2018-05-09 18:13 | XMS REPORT ---
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 Role Phone CLARISA GARSIA Unavailable PROBLEMS Type Condition ICD9-CM Code GHK24-AL Code Onset Dates Condition Status SNOMED Code Problem Cardiomyopathy I42.9 Active 37939997 Problem Anoxic brain injury G93.1 Active 640009208 Problem Adjustment disorder with depressed mood F43.21 Active 19625433 Problem Cardiac defibrillator in place Z95.810 Active 943704929 Problem Chronic atrial fibrillation I48.2 Active 666841639 Problem USP (current) use of anticoagulants Z79.01 Active 866006373 Problem History of cardiac arrest Z86.74 Active 801008492 Problem Non-ischemic cardiomyopathy I42.8 Active 91199608 ALLERGIES Substance Reaction Event Type Date Status Penicillin V Potassium hives Drug Allergy Jan, Active ENCOUNTERS Encounter Location Date Diagnosis [facility] [id number] [place] [id number] Feb, [facility] [id number] [place] [address] [id number] Jan, Caries K02.9 [facility] [address] [address]- [address] Oct, Foreign body in subcutaneous tissue T14.8XXA [facility] [id number] [place] [address] 49997- 8490 Sep, Chronic atrial fibrillation I48.2 ; Non-ischemic cardiomyopathy I42.8 ; Anoxic brain injury G93.1 and Adjustment disorder with depressed mood F43.21 [facility] [address] [address]- [address] Aug, [facility] [address] [address]- 6209 July, [facility] [address], [place] [address] July, [facility] [id number] [place] [address] 54533- 0172 Jun, Adjustment disorder with depressed mood F43.21 [facility] [address], [place] [address] Jun, [facility] [id number] [place] [address] 68897- 0048 Jun, [facility] [address], [place] [address]- 5[address] May, [facility] [id number] [place] [address] 91153- 6370 May, [facility] [id number] [place] [address] 54563- 0446 May, [facility] [address], [place] [address]- 0298 15 May, 2017 [facility] [address] [place] [address] 45006- 0125 May, History of cardiac arrest Z86.74 ; Cardiac defibrillator in place Z95.810 ; Chronic atrial fibrillation I48.2 and Current moderate episode of major depressive disorder without prior episode F32.1 [facility] [address], [place] [address] 3[address] May, [facility] [address], [place] [address]- 6788 Mar, USP (current) use of anticoagulants Z79.01 [facility] [id number], [place] [address] 25[address] Mar, [facility] [address], [place] [address]- 7278 Mar, USP (current) use of anticoagulants Z79.01 [facility] [address], [place] [address]- 0[address] 08 Feb, 2017 Afib I48.91 [facility] [id number] [place] [address] 75131- 7060 Feb, USP (current) use of anticoagulants Z79.01 [facility] [address], [place] [address] Jan, Other viral agents as the cause of diseases classified elsewhere B97.89 ; Acute upper respiratory infection, unspecified J06.9 and Body aches R52 [facility] [address] [place] [address] 72973- 9688 Jan, Afib I48.91 [facility] [facility] [id number] [place] [address] 50348- 7427 Jan, Afib I48.91 and 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.01 [facility] [id number] [place] [address] 75739- 3934 Dec, Afib I48.91 [facility] [id number] [place] [address] 19346- 5731 Dec, Chronic atrial fibrillation I48.2 [facility] [id number] [place] [address] 46328- 9645 Nov, Hypertension I10 [facility] [id number] [place] [address] 85075- 3547 Oct, Chronic atrial fibrillation I48.2 [facility] [id number] [place] [address] 15732- 9699 Oct, 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.01 [facility] [id number] [place] [address] 90899- 1425 Oct, Chronic atrial fibrillation I48.2 [facility] [address] [place] [address] 60771- 7032 Oct, Chronic atrial fibrillation I48.2 [facility] [address], [place] [address]- 1628 18 Sep, 2016 USP (current) use of anticoagulants Z79.01 ; Hypertension I10 ; Cardiomyopathy I42.9 and Afib I48.91 [place] [address], [place] [address]- 6916 Sep, 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.01 ; Hypertension I10 ; Cardiomyopathy I42.9 and Afib I48.91 [facility] [address] [place] [address] 42532 2546 Aug, 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.01 [facility] [id number] [place] [address] 02297 2546 Aug, USP (current) use of anticoagulants Z79.01 [facility] [id number] [place] [address] 09252- 8466 Aug, 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.01 [facility] [address], [place] [address]- 3186 July, 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.01 [facility] [facility] [address], [place] [address] 2546 Jun, 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.01 [facility] [address] [place] [address] 16553 2546 Jun, USP (current) use of anticoagulants Z79.01 [facility] [address], [place] [address] 2546 May, Chronic atrial fibrillation I48.2 [facility] [address], [place] [address] 2546 May, [facility] [address], [place] [address] 2546 May, USP (current) use of anticoagulants Z79.01 [place] [address] [place] [address] 36728- 6810 10 May, 2016 USP (current) use of anticoagulants Z79.01 [place] [id number] [place] [address] 75176- 2766 10 May, 2016 Afib I48.91 ; Non-ischemic cardiomyopathy I42.8 ; Hypotension, unspecified hypotension type I95.9 and Heart palpitations R00.2 [facility] [id number] [place] [address] 36231- 5921 16 Apr, 2016 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.01 [facility] [id number] [place] [address] 06625- 3516 Apr, USP (current) use of anticoagulants Z79.01 [facility] [id number] [place] [address] 12378- 8996 Mar, 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.01 [facility] [id number] [place] [address] 97927- 7677 Feb, USP (current) use of anticoagulants Z79.01 [facility] [id number] [place] [address] 19951- 1546 Feb, 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.01 [place] [address] [place] [address] 13789- 1546 Jan, USP (current) use of anticoagulants Z79.01 [place] [address] [place] [address] 70127- 2858 Jan, USP (current) use of anticoagulants Z79.01 [facility] [facility] [id number] [place] [address] 78355- 3046 Dec, USP (current) use of anticoagulants Z79.01 [place] [address] [place] [address] 44574- 0236 Dec, 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.01 [facility] [id number] [place] [address] 74337- 2703 Oct, 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.01 [facility] [id number] [place] [address] 13475- 0876 Oct, USP (current) use of anticoagulants Z79.01 [place] [address] 71570- 4709 Oct, Afib I48.91 ; Cardiomyopathy I42.9 ; Palpitations R00.2 and Non-rheumatic tricuspid valve insufficiency I36.1 [place] [address] 66806- 8277 Sep, Chronic atrial fibrillation I48.2 ; 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.01 ; Cardiomyopathy I42.9 and Hypertension I10 [facility] [id number] [place] [address] 90594 -4571 Aug, Allergic rhinitis, unspecified allergic rhinitis type J30.9 [place] [address] 53631- 0014 Aug, 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.01 [facility] [facility] [id number] [place] [address] 52793- 1334 Jun, USP (current) use of anticoagulants Z79.01 [place] [facility] [id number] [place] [address] 22136- 0290 Jun, 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.01 [place] [id number] [place] [address] 72395- 1260 Jun, 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.01 [facility] [id number] [place] [address] 81456- 0326 Jun, [place] [address] 00002- 7828 May, Encounter for long-term (current) use of anticoagulants V58.61 [place] [facility] [address] [place] [address] 36908- 5622 May, Encounter for long-term (current) use of anticoagulants V58.61 [place] [facility] [id number] [place] [address] 84237- 2144 May, Encounter for long-term (current) use of anticoagulants V58.61 [facility] [id number] [place] [address] 13901- 5442 Apr, Encounter for long-term (current) use of anticoagulants V58.61 [facility] [id number] [place] [address] 90061- 8048 Apr, 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.01 [place] [address] 08686- 7395 Apr, Afib I48.91 ; Hypertension I10 ; Cardiomyopathy I42.9 and Palpitations R00.2 [facility] [id number] [place] [address] 00284- 2663 Mar, USP (current) use of anticoagulants Z79.01 [facility] [facility] [id number] [place] [address] 27114- 8495 Mar, Encounter for long-term (current) use of anticoagulants V58.61 [facility] [id number] [place] [address] 94888- 2499 Mar, Encounter for long-term (current) use of anticoagulants V58.61 [facility] [id number] [place] [address] 90871- 5690 Mar, USP (current) use of anticoagulants Z79.01 and Encounter for therapeutic drug level monitoring Z51.81 [facility] [id number] [place] [address] 00341- 0206 Feb, USP (current) use of anticoagulants Z79.01 and Encounter for therapeutic drug level monitoring Z51.81 [facility] [address], [place] [address] 2546 Feb, Encounter for long-term (current) use of anticoagulants V58.61 [facility] [address], [place] [address] 2546 16 Feb, 2015 [place] [facility] [id number] [place] [address] 73110 2546 Feb, Encounter for long-term (current) use of anticoagulants V58.61 [facility] [facility] [address], [place] [address] 2546 Feb, Encounter for therapeutic drug level monitoring Z51.81 [facility] [address], [place] [address] 2546 Jan, [facility] [address] [place] [address] 96154 2546 Dec, Encounter for long-term (current) use of anticoagulants V58.61 and Atrial fibrillation 427.31 [facility] [address], [place] [address] 2546 Dec, Chest wall muscle strain S29.011A [facility] [id number], [place] [address] 2546 Nov, Encounter for long-term (current) use of anticoagulants V58.61 and Atrial fibrillation 427.31 [place] [id number], [place] [address] 2546 Nov, Atrial fibrillation 427.31 [place] [address], [place] [address] 2546 Nov, [facility] [facility] [address] [place] [address] 81041 2546 Nov, Atrial fibrillation 427.31 [place] [address], [place] [address] 2546 Nov, Atrial fibrillation 427.31 [facility] [address], [place] [address]- 5066 Oct, Encounter for long-term (current) use of anticoagulants V58.61 [facility] [address], [place] [address]- 2546 Sep, Encounter for long-term (current) use of anticoagulants V58.61 [facility] [address], [place] [address]- 2546 Aug, Encounter for long-term (current) use of anticoagulants V58.61 [facility] [address], [place] [address]- 2546 July, [facility] [address], [place] [address]- 2546 July, [facility] [address] [place] [address] 95499- 2546 July, [facility] [address], [place] [address]- 2546 Jun, [facility] [address], [place] [address]- 2546 Jun, [facility] [address], [place] [address]- 2546 May, [facility] [address], [place] [address]- 2546 May, [facility] [address], [place] [address]- 2546 May, [facility] [id number], [place] [address]- 2546 Apr, [facility] [address], [place] [address]- 2546 Apr, [facility] [address], [place] [address]- 2546 Apr, [facility] [place] [facility] [address] [id number] [place] [address]- 5005 Apr, [facility] [place] [facility] [address] [id number] [place] [address]- 8200 Apr, [facility] [place] [facility] [address] [id number] [place] [address]- 0016 Apr, [facility] [place] [facility] [address] [id number] [place] [address]- 2753 Apr, [facility] [place] [facility] [address] [id number] [place] [address]- 5381 Mar, [facility] [place] [facility] [address] [id number] [place] [address]- 0559 Mar, [facility] [place] [facility] [address] [id number] [place] [address]- 6044 Mar, [facility] [place] [facility] [address] [id number] [place] [address]- 3669 Mar, [facility] [place] [facility] [address] [id number] [place] [address]- 9346 Mar, [facility] [place] [facility] [address] [id number] [place] [address]- 1690 Mar, [facility] [place] [facility] [address] [id number] [place] [address]- 1317 Mar, [facility] [place] [facility] [address] [id number], [place] [address]- 4846 Mar, [facility] [place] [facility] [address] [id number] [place] [address]- 8036 Feb, [facility] [place] [facility] [address] [id number] [place] [address]- 8523 Feb, [facility] [place] [facility] [address] [id number] [place] [address]- 9190 Feb, [facility] [place] [facility] [address] [id number], [place] [address]- 2092 Feb, [facility] [place] [facility] [address] [id number] [place] [address]- 0796 Feb, [facility] [place] [facility] [address] [facility] [id number] [place] 3103 Feb, [facility] [place] [facility] [address] [facility] [id number] [place] [address]- 5564 Jan, [facility] [place] [facility] [address] [id number] [place] [address]- 8490 Jan, [facility] [place] [facility] [address] [facility] [id number] [place] [address]- 0329 Jan, [facility] [place] [facility] [address] [facility] [id number] [place] [address]- 7591 Jan, [facility] [place] [facility] [id number], [place] [address]- 2223 Jan, [facility] [place] [facility] [address] [facility] [id number] [place] [address]- 5216 Jan, [facility] [place] [facility] [id number] [address]- 8114 Dec, [facility] [place] [facility] [address] [facility] [id number], [place] [address]- 5164 Dec, [facility] [place] [facility] [address] [facility] [id number], [place] [address]- 0685 Dec, [facility] [place] [facility] [address] [facility] [id number], [place] [address]- 6744 Dec, [facility] [place] [facility] [address] [facility] [id number], [place] [address]- 4970 Nov, [facility] [place] [facility] [address] [facility] [id number], [place] [address]- 0114 Nov, [facility] [place] [facility] [address] [facility] [id number], [place] [address]- 4061 Oct, [facility] [place] [facility] [address] [id number] [place] [address]- 6451 Oct, [facility] [place] [facility] [address] [id number] [facility] [place] [address]- 9083 Oct, [facility] [place] [facility] [address] [id number] [place] [address]- 0006 Oct, [facility] [place] [facility] [address] [id number] [place] [address]- 9651 Oct, [facility] [place] [facility] [address] [id number] [place] [address]- 4301 Oct, [facility] [place] [facility] [address] [id number] [place] [address]- 4128 Sep, [facility] [place] [facility] [address] [id number] [place] [address]- 3908 Sep, [facility] [place] [facility] [address] [id number] [place] [address]- 8268 Sep, [facility] [place] [facility] [address] [id number] [place] [address]- 3844 Sep, [facility] [place] [facility] [address] [id number] [place] [address]- 9577 Sep, [facility] [place] [facility] [address] [id number] [place] [address]- 2275 Sep, [facility] [place] [facility] [address] [id number] [place] [address]- 4249 Sep, [facility] [place] [facility] [address] [id number] [place] [address]- 7597 Sep, [facility] [place] [facility] [address] [id number] [place] [address]- 7659 Sep, [facility] [place] [facility] [address] [id number] [place] [address]- 3382 Sep, [facility] [place] [facility] [address] [id number] [place] [address]- 6478 Sep, [facility] [id number] 2752 Sep, [facility] [id number], [place] [address]- 5106 Sep, [facility] [id number], [place] [address]- 8977 Sep, [facility] [address] 3901 Feb, [facility] [id number] 8588 Feb, [facility] [address], [place] [address]- 8786 July, [facility] [address], [place] [address]- 2067 Apr, [facility] [address], [place] [address]- 0830 Apr, [facility] [id number], [place] [address]- 4171 Apr, [facility] [id number], [place] [address]- 0399 Apr, IMMUNIZATIONS No Known Immunizations SOCIAL HISTORY Never Assessed REASON FOR VISIT fillings 1 hr per dds pt does not have a treatment plan, needs exam?, twe PLAN OF CARE Activity Details Follow Up prn Reason:fillings VITAL SIGNS Height 64 in 2018-01-18 Blood pressure systolic 102 mmHg 2018-01-18 Blood pressure diastolic 70 mmHg 2018-01-18 MEDICATIONS Medication Instructions Dosage Frequency Start Date End Date Duration Status Apixaban 5 mg Orally 2 times a day 12h Active Magnesium Oxide 400 mg Orally twice a day 1 tablet as needed 12h Active Aspirin 325 MG Orally Once a day 1 tablet 24h Active Senokot S Active Zoloft 50 MG Orally Once a day 1 tablet 24h 13 Jun, 2017 Active Stool Softener 100 MG Orally Once a day 1 tablet as needed 24h Active Entresto Active Amiodarone HCl 200 mg Orally Once a day 1 tablet 24h 30 Active Protonix Active Metoprolol Tartrate Active RESULTS No Results PROCEDURES Procedure Date Ordered Result Body Site RESIN COMPOS - 2 SURFACES ANTERIOR Jan 18, 2018 RESIN COMPOS - 2 SURFACES ANTERIOR Jan 18, 2018 Billing Notes on claim Jan 18, 2018 INSTRUCTIONS MEDICATIONS ADMINISTERED No Known Medications MEDICAL (GENERAL) HISTORY Type Description Date Medical History Atrial fibrillation Medical History hx of c. diff Medical History Stress test performed; EF 25% Last test 2015 was at 60% Medical History Palpitations Medical History Cardiac Arrest with CPR and Intubation with ET tube and transferred to [facility] Trach placed 03/2017 due to A Fib resulting in anoxic brain injury and memory loss Surgical History Defibrillation placed 2017 Surgical History Trach/PEG Tube placed and removed [facility] after Intubation 2017 Surgical History heart surgery 2018 Hospitalization History ICU for Afib 09/2013 Hospitalization History Admitted to Transferred to Cardiac ICU/ Rehab 03/2017 Hospitalization History Coded, Defribrillated and ET tube placed for ventillation and transferred to [facility] 03/2017 Hospitalization History surgery 09/29/2017
--- OUTSIDE RECORDS SUMMARY | 2018-05-09 18:13 | XMS REPORT ---
Author Author KARI AMADOR [facility] Address [address] [place] [address] Care Team Providers Care Culinary Director Name Role Phone KARI AMADOR Unavailable PROBLEMS Type Condition ICD9-CM Code RTA10-WE Code Onset Dates Condition Status SNOMED Code Problem long term care pharmacist (current) use of anticoagulants Z79.01 Active 637165315 Problem Cardiomyopathy I42.9 Active 11574842 Problem Chronic atrial fibrillation I48.2 Active 032735885 Problem Post-cardiac injury syndrome I24.1 Active 22474967 Problem Anoxic brain injury G93.1 Active 165184820 Problem Hypertension I10 Active 93960210 Problem Adjustment disorder with depressed mood F43.21 Active 29984219 Problem Cardiac defibrillator in place Z95.810 Active 770586480 Problem Afib I48.91 Active 42710327 Problem Non-ischemic cardiomyopathy I42.8 Active 46697264 Problem History of cardiac arrest Z86.74 Active 318985430 Problem Current moderate episode of major depressive disorder without prior episode F32.1 Active 22237603 ALLERGIES No Information ENCOUNTERS Encounter Location Date Diagnosis [facility] [id number] [place] [address] 69484- 6807 July, [facility] [id number] [place] [address] 19066- 5506 Jun, Adjustment disorder with depressed mood F43.21 [facility] [address] [place] [address] 06159- 7531 Jun, [facility] [id number] [place] [address] 16534- 3498 Jun, [facility] [id number] [place] [address] 30247- 8265 May, [facility] [address] [place] [address]- 0129 26 May, 2017 [facility] [id number] [place] [address] 05224- 4973 16 May, 2017 [facility] [id number] [place] [address] 27668- 9304 15 May, 2017 [facility] [id number] [place] [address] 90673- 0828 13 May, 2017 History of cardiac arrest Z86.74 ; Cardiac defibrillator in place Z95.810 ; Chronic atrial fibrillation I48.2 and Current moderate episode of major depressive disorder without prior episode F32.1 [place] [address] [address]386- 2012 12 May, 2017 [facility] [id number] [place] [address] 40190- 8630 Mar, alf (current) use of anticoagulants Z79.01 [facility] [id number] [place] [address] 62853- 2638 Mar, [facility] [id number] [place] [address] 50681- 6416 Mar, alf (current) use of anticoagulants Z79.01 [facility] [id number] [place] [address] 75300- 0590 Feb, Afib I48.91 [facility] [id number] [place] [address] 57025- 6313 Feb, long term care pharmacist (current) use of anticoagulants Z79.01 [facility] [address] [place] [address] 19347 -9460 Jan, Other viral agents as the cause of diseases classified elsewhere B97.89 ; Acute upper respiratory infection, unspecified J06.9 and Body aches R52 [facility] [id number] [place] [address] 62534- 1051 17 Jan, 2017 Afib I48.91 [facility] [address], [place] [address]- 0334 Jan, Afib I48.91 and alf (current) use of anticoagulants Z79.01 [place] [address], [place] [address]- 4521 Dec, Afib I48.91 [place] [address] [place] [address] 30777- 1498 Dec, Chronic atrial fibrillation I48.2 [place] [id number] [place] [address] 05701- 2066 Nov, Hypertension I10 [place] [id number] [place] [address] 72267- 5513 Oct, Chronic atrial fibrillation I48.2 [place] [id number] [place] [address] 46400- 3844 Oct, alf (current) use of anticoagulants Z79.01 [place] [address], [place] [address]- 9826 Oct, Chronic atrial fibrillation I48.2 [place] [address] [place] [address] 29125- 2329 Oct, Chronic atrial fibrillation I48.2 [place] [address] [address]- 0981 Sep, alf (current) use of anticoagulants Z79.01 ; Hypertension I10 ; Cardiomyopathy I42.9 and Afib I48.91 [place] [address] [place] [address] 78018- 0082 Sep, alf (current) use of anticoagulants Z79.01 ; Hypertension I10 ; Cardiomyopathy I42.9 and Afib I48.91 [place] [address], [place] [address]- 9956 Aug, alf (current) use of anticoagulants Z79.01 [place] [address] [place] [address] 14715- 0558 Aug, long term care pharmacist (current) use of anticoagulants Z79.01 [place] [address] [place] [address] 47478- 4209 Aug, alf (current) use of anticoagulants Z79.01 [place] [id number] [place] [address] 35130- 0036 July, long term care pharmacist (current) use of anticoagulants Z79.01 [place] [id number] [place] [address] 45447- 1137 Jun, alf (current) use of anticoagulants Z79.01 [place] [id number] [place] [address] 04555- 1274 Jun, alf (current) use of anticoagulants Z79.01 [place] [id number] [place] [address] 92721- 1599 May, Chronic atrial fibrillation I48.2 [place] [id number] [place] [address] 86085- 7829 May, [place] [id number] [place] [address] 29717- 2942 May, long term care pharmacist (current) use of anticoagulants Z79.01 [place] [address] [place] [address] 46919- 1589 10 May, 2016 long term care pharmacist (current) use of anticoagulants Z79.01 [place] [address] [place] [address] 73124- 9238 10 May, 2016 Afib I48.91 ; Non-ischemic cardiomyopathy I42.8 ; Hypotension, unspecified hypotension type I95.9 and Heart palpitations R00.2 [place] [address] [place] [address] 09680- 9961 16 Apr, 2016 long term care pharmacist (current) use of anticoagulants Z79.01 [place] [id number] [place] [address] 25823- 8061 Apr, alf (current) use of anticoagulants Z79.01 [place] [id number] [place] [address] 25641- 9603 Mar, alf (current) use of anticoagulants Z79.01 [place] [id number] [place] [address] 17968- 3876 Feb, long term care pharmacist (current) use of anticoagulants Z79.01 [place] [id number] [place] [address] 91366- 2950 Feb, alf (current) use of anticoagulants Z79.01 [place] [id number] [place] [address] 82453- 0128 Jan, long term care pharmacist (current) use of anticoagulants Z79.01 [place] [id number] [place] [address] 847950- 5097 Jan, long term care pharmacist (current) use of anticoagulants Z79.01 [place] [address] [place] [address] 61984- 7924 Dec, long term care pharmacist (current) use of anticoagulants Z79.01 [place] [address] [place] [address] 05676- 1143 Dec, alf (current) use of anticoagulants Z79.01 [place] [address] [place] [address] 23308- 4876 Oct, long term care pharmacist (current) use of anticoagulants Z79.01 [place] [address] [place] [address] 46104- 3593 Oct, long term care pharmacist (current) use of anticoagulants Z79.01 [place] [address] [place] [address] 21368313- 3962 Oct, Afib I48.91 ; Cardiomyopathy I42.9 ; Palpitations R00.2 and Non-rheumatic tricuspid valve insufficiency I36.1 [place] [address] 28836- 9946 Sep, Chronic atrial fibrillation I48.2 ; long term care pharmacist (current) use of anticoagulants Z79.01 ; Cardiomyopathy I42.9 and Hypertension I10 [facility] [address] [place] [address] 95796 -1929 Aug, Allergic rhinitis, unspecified allergic rhinitis type J30.9 [facility] [address] [place] [address] 22876- 4362 Aug, long term care pharmacist (current) use of anticoagulants Z79.01 [place] [address] [place] [address] 85257- 0003 Jun, long term care pharmacist (current) use of anticoagulants Z79.01 [place] [address] [place] [address] 34449- 9769 Jun, long term care pharmacist (current) use of anticoagulants Z79.01 [place] [address] [place] [address] 14742- 5068 Jun, long term care pharmacist (current) use of anticoagulants Z79.01 [place] [address] [place] [address] 99655- 8581 Jun, [place] [address] [place] [address] 47277- 8979 May, Encounter for long-term (current) use of anticoagulants V58.61 [place] [address] [place] [address] 89995- 5676 May, Encounter for long-term (current) use of anticoagulants V58.61 [place] [address] [place] [address] 74369- 6649 May, Encounter for long-term (current) use of anticoagulants V58.61 [place] [address] [place] [address] 62341- 4196 Apr, Encounter for long-term (current) use of anticoagulants V58.61 [place] [address] [place] [address] 64804- 8908 Apr, alf (current) use of anticoagulants Z79.01 [place] [address] [place] [address] 13623- 6740 Apr, Afib I48.91 ; Hypertension I10 ; Cardiomyopathy I42.9 and Palpitations R00.2 [place] [address] [place] [address] 08216- 9217 Mar, long term care pharmacist (current) use of anticoagulants Z79.01 [place] [address] [place] [address] 70981- 7150 Mar, Encounter for long-term (current) use of anticoagulants V58.61 [place] [address] [place] [address] 40076- 8287 Mar, Encounter for long-term (current) use of anticoagulants V58.61 [place] [address] 36035- 2208 Mar, alf (current) use of anticoagulants Z79.01 and Encounter for therapeutic drug level monitoring Z51.81 [place] [id number] [place] [address] 94495- 3268 Feb, alf (current) use of anticoagulants Z79.01 and Encounter for therapeutic drug level monitoring Z51.81 [place] [address] [place] [address] 87044- 6139 Feb, Encounter for long-term (current) use of anticoagulants V58.61 [place] [id number] [place] [address] 56812- 0579 Feb, [place] [address] 01139- 4107 Feb, Encounter for long-term (current) use of anticoagulants V58.61 [place] [id number] [place] [address] 51139- 1061 Feb, Encounter for therapeutic drug level monitoring Z51.81 [place] [address], [place] [address]- 8946 Jan, [place] [address] [address]- 7266 Dec, Encounter for long-term (current) use of anticoagulants V58.61 and Atrial fibrillation 427.31 [place] [address], [place] [address] 2546 Dec, Chest wall muscle strain S29.011A [place] [address], [place] [address] 2546 Nov, Encounter for long-term (current) use of anticoagulants V58.61 and Atrial fibrillation 427.31 [place] [address], [place] [address] 2546 Nov, Atrial fibrillation 427.31 [place] [address] [place] [address] 75891- 1496 Nov, [place] [address] [place] [address] 58455 2546 Nov, Atrial fibrillation 427.31 [place] [address] [address]- 3146 Nov, Atrial fibrillation 427.31 [place] [address], [place] [address]- 8026 Oct, Encounter for long-term (current) use of anticoagulants V58.61 [place] [id number] [address] 2546 Sep, Encounter for long-term (current) use of anticoagulants V58.61 [place] [id number] [address] 2546 Aug, Encounter for long-term (current) use of anticoagulants V58.61 [place] [id number] [address] 2546 July, [place] [id number] [place] [address]- 3522 July, [facility] [place] [facility] [address] [id number] [place] [address]- 8619 July, [facility] [place] [facility] [address] [id number] [place] [address]- 7190 Jun, [facility] [place] [facility] [address] [facility] [id number] [place] [address]- 3621 Jun, [facility] [place] [facility] [address] [facility] [id number] [place] [address]- 0643 May, [facility] [place] [facility] [address] [id number] [place] [address]- 1256 May, [facility] [place] [facility] [address] [facility] [id number] [place] [address]- 0670 May, [facility] [place] [facility] [address] [place] [address]- 6423 Apr, [facility] [place] [facility] [address] [facility] [id number] [place] [address]- 2899 Apr, [facility] [place] [facility] [address] [place] [address]- 8288 Apr, [facility] [place] [facility] [id number] [place] [address]- 6540 Apr, [facility] [place] [facility] [address] [facility] [id number] [place] [address]- 3373 Apr, [facility] [place] [facility] [address] [facility] [id number] [place] [address]- 0216 Apr, [facility] [place] [facility] [address] [facility] [id number] [place] [address]- 5601 Apr, [facility] [place] [facility] [address] [facility] [id number] [place] [address]- 3558 Mar, [facility] [place] [facility] [address] [place] [address]- 1976 Mar, [facility] [place] [facility] [address] [id number] [place] [address]- 4229 Mar, [facility] [place] [facility] [address] [id number] [place] [address]- 9039 Mar, [facility] [place] [facility] [address] [id number] [place] [address]- 7403 Mar, [facility] [place] [facility] [address] [id number] [place] [address]- 6584 Mar, [facility] [place] [facility] [address] [id number] [place] [address]- 3547 Mar, [facility] [place] [facility] [address] [id number] [place] [address]- 9392 Mar, [facility] [place] [facility] [address] [id number] [place] [address]- 1750 Feb, [facility] [place] [facility] [address] [id number] [place] [address]- 1259 Feb, [facility] [place] [facility] [address] [id number] [place] [address]- 2941 Feb, [facility] [place] [facility] [address] [id number] [place] [address]- 5043 Feb, [facility] [place] [facility] [address] [id number] [place] [address]- 7493 Feb, [facility] [place] [facility] [address] [id number] [place] [address]- 9804 Feb, [facility] [place] [facility] [address] [id number] [place] [address]- 3925 Jan, [facility] [place] [facility] [address] [id number] [place] [address]- 5025 Jan, [facility] [place] [facility] [address] [id number] [place] [address]- 4298 Jan, [facility] [place] [facility] [address] [id number] [place] [address]- 6494 Jan, [facility] [place] [facility] [address] [id number] [place] [address]- 7305 Jan, [facility] [place] [facility] [address] [id number] [place] 0653 Jan, [facility] [place] [facility] [address] [id number] [place] [address]- 1221 Dec, [facility] [place] [facility] [address] [id number] [place] [address]- 4706 Dec, [facility] [place] [facility] [address] [id number] [place] [address]- 7899 Dec, [facility] [place] [facility] [address] [id number] [place] [address]- 7635 Dec, [facility] [place] [facility] [address] [id number] [place] [address]- 5197 Nov, [facility] [place] [facility] [address] [id number] [place] [address]- 7909 Nov, [facility] [place] [facility] [address] [id number] [place] [address]- 2352 Oct, [facility] [place] [facility] [address] [id number] [place] [address]- 3036 Oct, [facility] [place] [facility] [address] [id number] [place] [address]- 8963 Oct, [facility] [place] [facility] [address] [id number] [place] [address]- 4025 Oct, [facility] [place] [facility] [address] [id number] [place] [address]- 3285 Oct, [facility] [place] [facility] [address] [id number] [place] [address]- 0073 Oct, [facility] [place] [facility] [address] [id number] [place] [address]- 1532 Sep, [facility] [place] [facility] [address] [id number] [place] [address]- 0192 Sep, [facility] [place] [facility] [address] [id number] [place] [address]- 9332 Sep, [facility] [place] [facility] [address] [id number] [place] [address]- 5715 Sep, [facility] [place] [facility] [address] [id number] [place] [address]- 4469 Sep, [facility] [place] [facility] [address] [id number] [place] [address]- 1408 Sep, [facility] [place] [facility] [address] [id number] [place] [address]- 3571 Sep, [facility] [place] [facility] [address] [id number] [place] [address]- 2922 Sep, [facility] [place] [facility] [address] [id number] [place] [address]- 5459 Sep, [facility] [place] [facility] [address] [id number] [place] [address]- 0918 Sep, [facility] [place] [facility] [address] [id number] [place] [address]- 0979 Sep, [facility] [place] [facility] [address] [id number] [place] [address]- 5094 Sep, [facility] [place] [facility] [address] [id number] [place] [address]- 6186 Sep, [facility] [place] [facility] [address] [id number] [place] [address]- 3297 Sep, [facility] [place] [facility] [address] [id number] [place] [address]- 3722 Feb, [facility] [place] [facility] [address] [id number] [place] [address]- 6433 Feb, [facility] [place] [facility] [address] [id number], [place] [address]- 2546 July, [facility] [address] [facility] [id number], [place] [address]- 2546 Apr, [facility] [address] [facility] [id number], [place] [address]- 2546 Apr, [facility] [address] [facility] [id number], [place] [address]- 2546 Apr, [facility] [address] [facility] [id number], [place] [address]- 2546 Apr, IMMUNIZATIONS No Known Immunizations SOCIAL HISTORY Never Assessed REASON FOR VISIT Deferred Lab Order PLAN OF CARE VITAL SIGNS MEDICATIONS Unknown [...] Intubation with ET tube and transferred to [facility] Trach placed 03/2017 Surgical History Defibrillation placed 2017 Surgical History Trach/PEG Tube placed and removed [facility] after Intubation 2017 Hospitalization History ICU for Afib 09/2013 Hospitalization History Admitted to Transferred to Cardiac ICU/ Rehab 03/2017 Hospitalization History Coded, Defribrillated and ET tube placed for ventillation and transferred to [facility] 03/2017
--- OUTSIDE RECORDS SUMMARY | 2018-05-09 18:14 | XMS REPORT | Continuity of Care Document ---
Author Author [facility] Address Unknown Phone Unavailable Allergies Active Description Code Type Severity Reaction Onset Reported/Identified Relationship to Patient Clinical Status Yes penicillin V potassium Drug Allergy 07/21/2010 Yes penicillin V potassium Drug Allergy N/A N/A 07/21/2010 Yes Penicillins [id number] Drug Allergy Unknown N/A 09/19/2013 Medications There is no data. 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 07/21/2010 BROOK WILSON MD 486 PNEUMONIA UNSPECIFIED 07/21/2010 BROOK WILSON MD 486 PNEUMONIA UNSPECIFIED 07/21/2010 486 PNEUMONIA UNSPECIFIED 07/21/2010 TITO MCGEE ISABELLE K 486 PNEUMONIA UNSPECIFIED 07/21/2010 CHERI MESSINA MD 486 PNEUMONIA UNSPECIFIED 07/21/2010 MADL LITHOGRAPHIC PLATE MAKER APPRENTICE, KARI L 486 PNEUMONIA UNSPECIFIED 07/21/2010 MADL LITHOGRAPHIC PLATE MAKER APPRENTICE, KARI L 486 PNEUMONIA UNSPECIFIED 07/21/2010 MADL LITHOGRAPHIC PLATE MAKER APPRENTICE, KARI L 486 PNEUMONIA UNSPECIFIED 07/21/2010 TITO MCGEE ISABELLE K 486 PNEUMONIA UNSPECIFIED 07/21/2010 CHINA GOLDSTEIN MD 486 PNEUMONIA UNSPECIFIED 07/21/2010 MADL LITHOGRAPHIC PLATE MAKER APPRENTICE, KARI L 486 PNEUMONIA UNSPECIFIED 07/21/2010 MADL LITHOGRAPHIC PLATE MAKER APPRENTICE, KARI L 486 PNEUMONIA UNSPECIFIED 07/21/2010 MADL LITHOGRAPHIC PLATE MAKER APPRENTICE, KARI L 486 PNEUMONIA UNSPECIFIED 07/21/2010 MADL LITHOGRAPHIC PLATE MAKER APPRENTICE, KARI L 486 PNEUMONIA UNSPECIFIED 07/21/2010 MADL LITHOGRAPHIC PLATE MAKER APPRENTICE, KARI L 486 PNEUMONIA UNSPECIFIED 07/21/2010 CHINA GOLDSTEIN MD 486 PNEUMONIA UNSPECIFIED 07/21/2010 MADL LITHOGRAPHIC PLATE MAKER APPRENTICE, KARI L 486 PNEUMONIA UNSPECIFIED 04/17/2011 Ot 787.03 VOMITING ALONE 04/17/2011 Ot 787.91 DIARRHEA 08/17/2011 Ot 427.31 ATRIAL FIBRILLATION 08/17/2011 Ot 785.1 PALPITATIONS 04/20/2012 BROOK WILSON MD 789.06 abdominal pain in the central upper belly (epigastric) 04/20/2012 BROOK WILSON MD 789.06 abdominal pain in the central upper belly (epigastric) 04/20/2012 789.06 abdominal pain in the central upper belly (epigastric) 04/20/2012 ISABELLE FRANCIS DO 789.06 abdominal pain in the central upper belly (epigastric) 04/20/2012 SIDDHARTH SANTANA, CHERI Henning 789.06 abdominal pain in the central upper belly (epigastric) 04/20/2012 WILFREDO AMADOR APRNA L 789.06 abdominal pain in the central upper belly (epigastric) 04/20/2012 CHIP AMADOR APRNWNYA L 789.06 abdominal pain in the central upper belly (epigastric) 04/20/2012 CHIP AMADOR APRNWNYA L 789.06 abdominal pain in the central upper belly (epigastric) 04/20/2012 ISABELLE FRANCIS DO 789.06 abdominal pain in the central upper belly (epigastric) 04/20/2012 CHINA GOLDSTEIN MD 789.06 abdominal pain in the central upper belly (epigastric) 04/20/2012 MARJORIE LITHOGRAPHIC PLATE MAKER APPRENTICE, KARI L 789.06 abdominal pain in the central upper belly (epigastric) 04/20/2012 MARJORIE LITHOGRAPHIC PLATE MAKER APPRENTICECHIP HenningKARI L 789.06 abdominal pain in the central upper belly (epigastric) 04/20/2012 MADL LITHOGRAPHIC PLATE MAKER APPRENTICE, KARI L 789.06 abdominal pain in the central upper belly (epigastric) 04/20/2012 MADL LITHOGRAPHIC PLATE MAKER APPRENTICE, KARI L 789.06 abdominal pain in the central upper belly (epigastric) 04/20/2012 MADL LITHOGRAPHIC PLATE MAKER APPRENTICE, KARI L 789.06 abdominal pain in the central upper belly (epigastric) 04/20/2012 CHINA GOLDSTEIN MD 789.06 abdominal pain in the central upper belly (epigastric) 04/20/2012 MADL LITHOGRAPHIC PLATE MAKER APPRENTICE, KARI L 789.06 abdominal pain in the [...] MESSINA MD N 787.91 diarrhea 05/10/2012 MADL LITHOGRAPHIC PLATE MAKER APPRENTICE, KARI L 427.31 ATRIAL FIBRILLATION 05/10/2012 MADL LITHOGRAPHIC PLATE MAKER APPRENTICE, KARI L 530.81 ESOPHAGEAL REFLUX 05/10/2012 MADL LITHOGRAPHIC PLATE MAKER APPRENTICE, KARI L 786.2 cough 05/10/2012 MADL LITHOGRAPHIC PLATE MAKER APPRENTICE, KARI L 787.91 diarrhea 05/10/2012 MADL LITHOGRAPHIC PLATE MAKER APPRENTICE, KARI L 427.31 ATRIAL FIBRILLATION 05/10/2012 MADL LITHOGRAPHIC PLATE MAKER APPRENTICE, KARI L 530.81 ESOPHAGEAL REFLUX 05/10/2012 MADL LITHOGRAPHIC PLATE MAKER APPRENTICE, KARI L 786.2 cough 05/10/2012 MADL LITHOGRAPHIC PLATE MAKER APPRENTICE, KARI L 787.91 diarrhea 05/10/2012 MADL LITHOGRAPHIC PLATE MAKER APPRENTICE, KARI L 427.31 ATRIAL FIBRILLATION 05/10/2012 MADL LITHOGRAPHIC PLATE MAKER APPRENTICE, KARI L 530.81 ESOPHAGEAL REFLUX 05/10/2012 MADL LITHOGRAPHIC PLATE MAKER APPRENTICE, KARI L 786.2 cough 05/10/2012 MADL LITHOGRAPHIC PLATE MAKER APPRENTICE, KARI L 787.91 diarrhea 05/10/2012 FRANCIS DO, ISABELLE K 427.31 ATRIAL FIBRILLATION 05/10/2012 FRANCIS DO, ISABELLE K 530.81 ESOPHAGEAL REFLUX 05/10/2012 FRANCIS DO, ISABELLE K 786.2 cough 05/10/2012 FRANCIS DO, ISABELLE K 787.91 diarrhea 05/10/2012 JEFFREY SANTANA, [place] 427.31 ATRIAL FIBRILLATION 05/10/2012 JEFFREY SANTANA, [place] 530.81 ESOPHAGEAL REFLUX 05/10/2012 JEFFREY SANTANA, BASHAR 786.2 cough 05/10/2012 JEFFREY SANTANA, BASHAR 787.91 diarrhea 05/10/2012 MADL LITHOGRAPHIC PLATE MAKER APPRENTICE, KARI L 427.31 ATRIAL FIBRILLATION 05/10/2012 MADL LITHOGRAPHIC PLATE MAKER APPRENTICE, KARI L 530.81 ESOPHAGEAL REFLUX 05/10/2012 MADL LITHOGRAPHIC PLATE MAKER APPRENTICE, KARI L 786.2 cough 05/10/2012 MADL LITHOGRAPHIC PLATE MAKER APPRENTICE, KARI L 787.91 diarrhea 05/10/2012 MADL LITHOGRAPHIC PLATE MAKER APPRENTICE, KARI L 427.31 ATRIAL FIBRILLATION 05/10/2012 MADL LITHOGRAPHIC PLATE MAKER APPRENTICE, KARI L 530.81 ESOPHAGEAL REFLUX 05/10/2012 MADL LITHOGRAPHIC PLATE MAKER APPRENTICE, KARI L 786.2 cough 05/10/2012 MADL LITHOGRAPHIC PLATE MAKER APPRENTICE, KARI L 787.91 diarrhea 05/10/2012 MADL LITHOGRAPHIC PLATE MAKER APPRENTICE, KARI L 427.31 ATRIAL FIBRILLATION 05/10/2012 MADL LITHOGRAPHIC PLATE MAKER APPRENTICE, KARI L 530.81 ESOPHAGEAL REFLUX 05/10/2012 MADL LITHOGRAPHIC PLATE MAKER APPRENTICE, KARI L 786.2 cough 05/10/2012 MADL LITHOGRAPHIC PLATE MAKER APPRENTICE, KARI L 787.91 diarrhea 05/10/2012 MADL LITHOGRAPHIC PLATE MAKER APPRENTICE, KARI L 427.31 ATRIAL FIBRILLATION 05/10/2012 MADL LITHOGRAPHIC PLATE MAKER APPRENTICE, KARI L 530.81 ESOPHAGEAL REFLUX 05/10/2012 MADL LITHOGRAPHIC PLATE MAKER APPRENTICE, KARI L 786.2 cough 05/10/2012 MADL LITHOGRAPHIC PLATE MAKER APPRENTICE, KARI L 787.91 diarrhea 05/10/2012 MADL LITHOGRAPHIC PLATE MAKER APPRENTICE, KARI L 427.31 ATRIAL FIBRILLATION 05/10/2012 MADL LITHOGRAPHIC PLATE MAKER APPRENTICE, KARI L 530.81 ESOPHAGEAL REFLUX 05/10/2012 MADL LITHOGRAPHIC PLATE MAKER APPRENTICE, KARI L 786.2 cough 05/10/2012 MADL LITHOGRAPHIC PLATE MAKER APPRENTICE, KARI L 787.91 diarrhea 05/10/2012 JEFFREY SANTANA, BASCHI 427.31 ATRIAL FIBRILLATION 05/10/2012 JEFFREY SANTANA, BASHAR 530.81 ESOPHAGEAL REFLUX 05/10/2012 JEFFREY SANTANA, BASHAR 786.2 cough 05/10/2012 JEFFREY SANTANA, BASHAR 787.91 diarrhea 05/10/2012 MADL LITHOGRAPHIC PLATE MAKER APPRENTICE, KARI L 427.31 ATRIAL FIBRILLATION 05/10/2012 MADL LITHOGRAPHIC PLATE MAKER APPRENTICE, KARI L 530.81 ESOPHAGEAL REFLUX 05/10/2012 MADL LITHOGRAPHIC PLATE MAKER APPRENTICE, KARI L 786.2 cough 05/10/2012 MADL LITHOGRAPHIC PLATE MAKER APPRENTICE, KARI L 787.91 diarrhea 07/31/2012 008.8 GASTROENTERITIS, VIRAL 07/31/2012 MARY FRANCIS DOA K 008.8 GASTROENTERITIS, VIRAL 07/31/2012 SIDDHARTH SANTANA, CHERI Henning 008.8 GASTROENTERITIS, VIRAL 07/31/2012 MADL LITHOGRAPHIC PLATE MAKER APPRENTICE, KARI L 008.8 GASTROENTERITIS, VIRAL 07/31/2012 MADL LITHOGRAPHIC PLATE MAKER APPRENTICE, KARI L 008.8 GASTROENTERITIS, VIRAL 07/31/2012 MADL LITHOGRAPHIC PLATE MAKER APPRENTICE, KARI L 008.8 GASTROENTERITIS, VIRAL 07/31/2012 TITO MCGEE ISABELLE K 008.8 GASTROENTERITIS, VIRAL 07/31/2012 JEFFREY SANTANA, [place] 008.8 GASTROENTERITIS, VIRAL 07/31/2012 MADL LITHOGRAPHIC PLATE MAKER APPRENTICE, KARI L 008.8 GASTROENTERITIS, VIRAL 07/31/2012 MADL LITHOGRAPHIC PLATE MAKER APPRENTICE, KARI L 008.8 GASTROENTERITIS, VIRAL 07/31/2012 MADL LITHOGRAPHIC PLATE MAKER APPRENTICE, KARI L 008.8 GASTROENTERITIS, VIRAL 07/31/2012 MADL LITHOGRAPHIC PLATE MAKER APPRENTICE, KARI L 008.8 GASTROENTERITIS, VIRAL 07/31/2012 MADL LITHOGRAPHIC PLATE MAKER APPRENTICE, KARI L 008.8 GASTROENTERITIS, VIRAL 07/31/2012 CHINA GOLDSTEIN MD 008.8 GASTROENTERITIS, VIRAL 07/31/2012 MADL LITHOGRAPHIC PLATE MAKER APPRENTICE, KARI L 008.8 GASTROENTERITIS, VIRAL 03/16/2013 MARY FRANCIS DOA K 487.1 INFLUENZA WITH OTHER RESPIRATORY MANIFESTATIONS 03/16/2013 CHERI MESSINA MD N 487.1 INFLUENZA WITH OTHER RESPIRATORY MANIFESTATIONS 03/16/2013 MADL LITHOGRAPHIC PLATE MAKER APPRENTICE, KARI L 487.1 INFLUENZA WITH OTHER RESPIRATORY MANIFESTATIONS 03/16/2013 MADL LITHOGRAPHIC PLATE MAKER APPRENTICE, KARI L 487.1 INFLUENZA WITH OTHER RESPIRATORY MANIFESTATIONS 03/16/2013 MADL LITHOGRAPHIC PLATE MAKER APPRENTICE, KARI L 487.1 INFLUENZA WITH OTHER RESPIRATORY MANIFESTATIONS 03/16/2013 MARY FRANCIS DOA K 487.1 INFLUENZA WITH OTHER RESPIRATORY MANIFESTATIONS 03/16/2013 CHINA GOLDSTEIN MD 487.1 INFLUENZA WITH OTHER RESPIRATORY MANIFESTATIONS 03/16/2013 MADL LITHOGRAPHIC PLATE MAKER APPRENTICE, KARI L 487.1 INFLUENZA WITH OTHER RESPIRATORY MANIFESTATIONS 03/16/2013 MADL LITHOGRAPHIC PLATE MAKER APPRENTICE, KARI L 487.1 INFLUENZA WITH OTHER RESPIRATORY MANIFESTATIONS 03/16/2013 MADL LITHOGRAPHIC PLATE MAKER APPRENTICE, KARI L 487.1 INFLUENZA WITH OTHER RESPIRATORY MANIFESTATIONS 03/16/2013 MADL LITHOGRAPHIC PLATE MAKER APPRENTICE, KARI L 487.1 INFLUENZA WITH OTHER RESPIRATORY MANIFESTATIONS 03/16/2013 MADL LITHOGRAPHIC PLATE MAKER APPRENTICE, KARI L 487.1 INFLUENZA WITH OTHER RESPIRATORY MANIFESTATIONS 03/16/2013 CHINA GOLDSTEIN MD 487.1 INFLUENZA WITH OTHER RESPIRATORY MANIFESTATIONS 03/16/2013 MADL LITHOGRAPHIC PLATE MAKER APPRENTICE, KARI L 487.1 INFLUENZA WITH OTHER RESPIRATORY MANIFESTATIONS 09/19/2013 CHERI MESSINA MD N 789.00 ABDOMINAL PAIN UNSPECIFIED SITE 09/19/2013 MADL LITHOGRAPHIC PLATE MAKER APPRENTICE, KARI L 789.00 ABDOMINAL PAIN UNSPECIFIED SITE 09/19/2013 MADL LITHOGRAPHIC PLATE MAKER APPRENTICE, KARI L 789.00 ABDOMINAL PAIN UNSPECIFIED SITE 09/19/2013 MADL LITHOGRAPHIC PLATE MAKER APPRENTICE, KARI L 789.00 ABDOMINAL PAIN UNSPECIFIED SITE 09/19/2013 MARY FRANCIS DOA K 789.00 ABDOMINAL PAIN UNSPECIFIED SITE 09/19/2013 CHINA GOLDSTEIN MD 789.00 ABDOMINAL PAIN UNSPECIFIED SITE 09/19/2013 MADL LITHOGRAPHIC PLATE MAKER APPRENTICE, KARI L 789.00 ABDOMINAL PAIN UNSPECIFIED SITE 09/19/2013 MADL LITHOGRAPHIC PLATE MAKER APPRENTICE, KARI L 789.00 ABDOMINAL PAIN UNSPECIFIED SITE 09/19/2013 MADL LITHOGRAPHIC PLATE MAKER APPRENTICE, KARI L 789.00 ABDOMINAL PAIN UNSPECIFIED SITE 09/19/2013 MADL LITHOGRAPHIC PLATE MAKER APPRENTICE, KARI L 789.00 ABDOMINAL PAIN UNSPECIFIED SITE 09/19/2013 MADL LITHOGRAPHIC PLATE MAKER APPRENTICE, KARI L 789.00 ABDOMINAL PAIN UNSPECIFIED SITE 09/19/2013 CHINA GOLDSTEIN MD 789.00 ABDOMINAL PAIN UNSPECIFIED SITE 09/19/2013 MADL LITHOGRAPHIC PLATE MAKER APPRENTICE, KARI L 789.00 ABDOMINAL PAIN UNSPECIFIED SITE 09/25/2013 CHINA GOLDSTEIN MD Ot 425.4 PRIM CARDIOMYOPATHY NEC 09/25/2013 CHINA GOLDSTEIN MD Ot 427.31 ATRIAL FIBRILLATION 09/25/2013 CHINA GOLDSTEIN MD Ot 428.0 CONGESTIVE HEART FAILURE NOS 09/25/2013 CHINA GOLDSTEIN MD Ot 428.21 ACUTE SYSTOLIC HEART FAILURE 09/25/2013 CHINA GOLDSTEIN MD Ot 458.29 OTHER IATROGENIC HYPOTENSION 09/25/2013 CHINA GOLDSTEIN MD Ot 785.0 TACHYCARDIA NOS 09/25/2013 CHINA GOLDSTEIN MD Ot E942.9 ADV EFF CARDIOVASC NEC 10/09/2013 VAMSI AMADOR APRNNYA L V58.61 LONG-TERM (CURRENT) USE OF ANTICOAGULANTS 10/09/2013 MADL LITHOGRAPHIC PLATE MAKER APPRENTICE, KARI L V58.61 LONG-TERM (CURRENT) USE OF ANTICOAGULANTS 10/09/2013 MARJORIE LITHOGRAPHIC PLATE MAKER APPRENTICE, KARI L V58.61 LONG-TERM (CURRENT) USE OF ANTICOAGULANTS 10/09/2013 ISABELLE FRANCIS DO V58.61 LONG-TERM (CURRENT) USE OF ANTICOAGULANTS 10/09/2013 CHINA GOLDSTEIN MD V58.61 LONG-TERM (CURRENT) USE OF ANTICOAGULANTS 10/09/2013 MARJORIE LITHOGRAPHIC PLATE MAKER APPRENTICE, KARI L V58.61 LONG-TERM (CURRENT) USE OF ANTICOAGULANTS 10/09/2013 ZAIRAL LITHOGRAPHIC PLATE MAKER APPRENTICE, KARI L V58.61 LONG-TERM (CURRENT) USE OF ANTICOAGULANTS 10/09/2013 MARJORIE LITHOGRAPHIC PLATE MAKER APPRENTICEVAMSI HenningNYA L V58.61 LONG-TERM (CURRENT) USE OF ANTICOAGULANTS 10/09/2013 MARJORIE LITHOGRAPHIC PLATE MAKER APPRENTICEWILFREDO HenningA L V58.61 LONG-TERM (CURRENT) USE OF ANTICOAGULANTS 10/09/2013 WILFREDO AMADOR APRNA L V58.61 LONG-TERM (CURRENT) USE OF ANTICOAGULANTS 10/09/2013 CHINA GOLDSTEIN MD V58.61 LONG-TERM (CURRENT) USE OF ANTICOAGULANTS 10/09/2013 WILFREDO AMADOR APRNA L V58.61 LONG-TERM (CURRENT) USE OF ANTICOAGULANTS 11/14/2013 CHINA GOLDSTEIN MD Ot 278.00 OBESITY, NOS 11/14/2013 CHINA GOLDSTEIN MD Ot 401.9 HYPERTENSION NOS 11/14/2013 CHINA GOLDSTEIN MD Ot 427.31 ATRIAL FIBRILLATION 11/14/2013 CHINA GOLDSTEIN MD Ot 428.0 CONGESTIVE HEART FAILURE NOS 11/14/2013 CHINA GOLDSTEIN MD Ot 428.22 CHRONIC SYSTOLIC HRT FAILURE 11/14/2013 CHINA GOLDSTEIN MD Ot 785.0 TACHYCARDIA NOS 11/14/2013 [...] CHINA GOLDSTEIN MD 785.1 PALPITATIONS 04/29/2014 MADL LITHOGRAPHIC PLATE MAKER APPRENTICE, KARI L 428.0 CONGESTIVE HEART FAILURE UNSPECIFIED 04/29/2014 MARJORIE LITHOGRAPHIC PLATE MAKER APPRENTICEKARI Henning L 458.9 HYPOTENSION UNSPECIFIED 04/29/2014 MARJORIE LITHOGRAPHIC PLATE MAKER APPRENTICE, KARI L 785.1 PALPITATIONS 02/10/2015 NATE PARRISH MARK K Ot 427.31 02/10/2015 NATE PARRISH, MARK K Ot 428.0 02/10/2015 NATE PARRISH, MARK K Ot 458.9 02/10/2015 NATE PARRISH, MARK K Ot 785.1 03/18/2015 NATE PARRISH, MARK K Ot 427.31 03/18/2015 DOTSONSRI PARRISH, MARK K Ot 428.0 03/18/2015 NATE PARRISH, MARK K Ot 458.9 03/18/2015 NATE PARRISH, MARK K Ot 785.1 09/14/2015 NATE PARRISH MARK K Ot 427.31 ATRIAL FIBRILLATION 09/14/2015 NATE PARRISH, MARK K Ot 428.0 CONGESTIVE HEART FAILURE NOS 09/14/2015 NATE PARRISH, MARK K Ot 458.9 HYPOTENSION NOS 09/14/2015 NATE PARRISH, MARK K Ot 785.1 PALPITATIONS 09/14/2015 CHINA GOLDSTEIN MD Ot I07.1 RHEUMATIC TRICUSPID INSUFFICIENCY 09/14/2015 CHINA GOLDSTEIN MD Ot I10 ESSENTIAL (PRIMARY) HYPERTENSION 09/14/2015 CHINA GOLDSTEIN MD Ot I48.91 UNSPECIFIED ATRIAL FIBRILLATION 09/14/2015 CHINA GOLDSETIN MD Ot I50.9 HEART FAILURE, UNSPECIFIED 01/27/2016 Ot 397.0 TRICUSPID VALVE DISEASE 01/27/2016 Ot 424.0 MITRAL VALVE DISORDER 01/27/2016 Ot 427.1 PAROX VENTRIC TACHYCARD 01/27/2016 Ot 427.31 ATRIAL FIBRILLATION 01/27/2016 Ot 785.1 PALPITATIONS 01/28/2016 Ot 397.0 TRICUSPID VALVE DISEASE 01/28/2016 Ot 424.0 MITRAL VALVE DISORDER 01/28/2016 Ot 427.1 PAROX VENTRIC TACHYCARD 01/28/2016 Ot 427.31 ATRIAL FIBRILLATION 01/28/2016 Ot 785.1 PALPITATIONS 05/31/2016 NATE PA, MARK K Ot 427.31 ATRIAL FIBRILLATION 05/31/2016 DOTSONGEORGIANA FRANCOIS, MARK K Ot 428.0 CONGESTIVE HEART FAILURE NOS 05/31/2016 DOTSON-KINGA PARRISH, MARK K Ot 458.9 HYPOTENSION NOS 05/31/2016 NATE FRANCOIS, MARK K Ot 785.1 PALPITATIONS 05/31/2016 CHINA GOLDSTEIN MD Ot I07.1 RHEUMATIC TRICUSPID INSUFFICIENCY 05/31/2016 CHINA GOLDSTEIN MD J Ot I10 ESSENTIAL (PRIMARY) HYPERTENSION 05/31/2016 CHINA GOLDSTEIN MD J Ot I48.91 UNSPECIFIED ATRIAL FIBRILLATION 05/31/2016 CHINA GOLDSTEIN MD Ot I50.9 HEART FAILURE, UNSPECIFIED 06/06/2016 DOTSONSRI PARRISH MARK K Ot 427.31 ATRIAL FIBRILLATION 06/06/2016 DOTSON-KINGA PARRISH, MARK K Ot 428.0 CONGESTIVE HEART FAILURE NOS 06/06/2016 DOTSON-KINGA PARRISH, MARK K Ot 458.9 HYPOTENSION NOS 06/06/2016 DOTSON-KINGA PARRISH, MARK K Ot 785.1 PALPITATIONS 06/06/2016 CHINA GOLDSTEIN MD Ot I07.1 RHEUMATIC TRICUSPID INSUFFICIENCY 06/06/2016 CHINA GOLDSTEIN MD Ot I10 ESSENTIAL (PRIMARY) HYPERTENSION 06/06/2016 CHINA GOLDSTEIN MD Ot I48.91 UNSPECIFIED ATRIAL FIBRILLATION 06/06/2016 CHINA GOLDSTEIN MD Ot I50.9 HEART FAILURE, UNSPECIFIED 06/06/2016 DOTSONSRI PARRISH MARK K Ot 427.31 ATRIAL FIBRILLATION 06/06/2016 DOTSON-KINGA PARRISH, MARK K Ot 428.0 CONGESTIVE HEART FAILURE NOS 06/06/2016 DOTSON-KINGA PARRISH, MARK K Ot 458.9 HYPOTENSION NOS 06/06/2016 DOTSON-KINGA PARRISH, MARK K Ot 785.1 PALPITATIONS 06/06/2016 CHINA GOLDSTEIN MD Ot I07.1 RHEUMATIC TRICUSPID INSUFFICIENCY 06/06/2016 CHINA GOLDSTEIN MD J Ot I10 ESSENTIAL (PRIMARY) HYPERTENSION 06/06/2016 CHINA GOLDSTEIN MD J Ot I48.91 UNSPECIFIED ATRIAL FIBRILLATION 06/06/2016 CHINA GOLDSTEIN MD Ot I50.9 HEART FAILURE, UNSPECIFIED 06/06/2016 JEFFREY SANTANA, CH[place] Huang Ot I48.91 UNSPECIFIED ATRIAL FIBRILLATION 06/07/2016 JEFFREY SANTANA, CHINA Huang Ot I48.91 UNSPECIFIED ATRIAL FIBRILLATION 06/09/2016 JEFFREY SANTANA, CH[place] Huang Ot I48.91 UNSPECIFIED ATRIAL FIBRILLATION 07/20/2016 JEFFREY SANTANA, CH[place] Huang Ot I48.91 UNSPECIFIED ATRIAL FIBRILLATION 03/31/2017 JEFFREY SANTANA, CHINA Huang Ot I48.91 UNSPECIFIED ATRIAL FIBRILLATION 03/31/2017 JAGJIT SANTANA, ELADIO Lee Ot I49.8 OTHER SPECIFIED CARDIAC ARRHYTHMIAS 03/31/2017 ELADIO DANIELSON MD Ot Z79.01 PRISON (CURRENT) USE OF ANTICOAGULANT 03/31/2017 ELADIO DANIELSON MD Ot Z82.49 FAMILY HX OF ISCHEM HEART DIS AND OTH DI 05/26/2017 CHINA GOLDSTEIN MD Ot I48.91 UNSPECIFIED ATRIAL FIBRILLATION 06/14/2017 GUILHERME WARE MD, V Ot F32.9 MAJOR DEPRESSIVE DISORDER, SINGLE EPISOD 06/14/2017 GUILHERME WARE MD, V Ot 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, 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 06/14/2017 GUILHERME WARE MD, V Ot K21.9 GASTRO-ESOPHAGEAL REFLUX DISEASE WITHOUT 06/14/2017 GUILHERME WARE MD, V Ot R25.1 TREMOR, UNSPECIFIED 06/14/2017 GUILHERME WARE MD, V Ot Z95.810 PRESENCE OF AUTOMATIC (IMPLANTABLE) CARD 06/15/2017 GUILHERME WARE MD, V Ot F32.9 MAJOR DEPRESSIVE DISORDER, SINGLE EPISOD 06/15/2017 GUILHERME WARE MD, V Ot 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, 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 06/15/2017 GUILHERME WARE MD, V Ot K21.9 GASTRO-ESOPHAGEAL REFLUX DISEASE WITHOUT 06/15/2017 GUILHERME WARE MD, V Ot R25.1 TREMOR, UNSPECIFIED 06/15/2017 GUILHERME WARE MD, V Ot Z95.810 PRESENCE OF AUTOMATIC (IMPLANTABLE) CARD 07/07/2017 GUILHERME WARE MD, V Ot F32.9 MAJOR DEPRESSIVE DISORDER, SINGLE EPISOD 07/07/2017 GUILHERME WARE MD, V Ot 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, 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 07/07/2017 GUILHERME WARE MD, V Ot K21.9 GASTRO-ESOPHAGEAL REFLUX DISEASE WITHOUT 07/07/2017 GUILHERME WARE MD, V Ot R25.1 TREMOR, UNSPECIFIED 07/07/2017 GUILHERME WARE MD V Ot Z95.810 PRESENCE OF AUTOMATIC (IMPLANTABLE) CARD 07/14/2017 GUILHERME WARE MD, V Ot F32.9 MAJOR DEPRESSIVE DISORDER, SINGLE EPISOD 07/14/2017 GUILHERME WARE MD V Ot 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91 UNSPECIFIED ATRIAL FIBRILLATION 07/14/2017 GUILHERME WARE MD, V Ot F32.9 MAJOR DEPRESSIVE DISORDER, SINGLE EPISOD 07/14/2017 GUILHERME WARE MD V Ot 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, 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 07/14/2017 GUILHERME WARE MD, V Ot K21.9 GASTRO-ESOPHAGEAL REFLUX DISEASE WITHOUT 07/14/2017 GUILHERME WARE MD, V Ot R25.1 TREMOR, UNSPECIFIED 07/14/2017 GUILHERME WARE MD V Ot Z95.810 PRESENCE OF AUTOMATIC (IMPLANTABLE) CARD 08/10/2017 GUILHERME WARE MD, V Ot F32.9 MAJOR DEPRESSIVE DISORDER, SINGLE EPISOD 08/10/2017 GUILHERME WARE MD V Ot 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, 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 08/10/2017 GUILHERME WARE MD, V Ot K21.9 GASTRO-ESOPHAGEAL REFLUX DISEASE WITHOUT 08/10/2017 GUILHERME WARE MD V Ot R25.1 TREMOR, UNSPECIFIED 08/10/2017 GUILHERME WARE MD V Ot Z95.810 PRESENCE OF AUTOMATIC (IMPLANTABLE) CARD 08/28/2017 GUILHERME WARE MD, V Ot F32.9 MAJOR DEPRESSIVE DISORDER, SINGLE EPISOD 08/28/2017 PEDRO WARE MDNDRA V Ot 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, 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 08/28/2017 GUILHERME WARE MD V Ot K21.9 GASTRO-ESOPHAGEAL REFLUX DISEASE WITHOUT 08/28/2017 GUILHERME WARE MD V Ot R25.1 TREMOR, UNSPECIFIED 08/28/2017 GUILHERME WARE MD V Ot Z95.810 PRESENCE OF AUTOMATIC (IMPLANTABLE) CARD 08/29/2017 GUILHERME WARE MD, V Ot F32.9 MAJOR DEPRESSIVE DISORDER, SINGLE EPISOD 08/29/2017 GUILHERME WARE MD V Ot 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, 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 08/29/2017 GUILHERME WARE MD V Ot K21.9 GASTRO-ESOPHAGEAL REFLUX DISEASE WITHOUT 08/29/2017 GUILHERME WARE MD V Ot R25.1 TREMOR, UNSPECIFIED 08/29/2017 GUILHERME WARE MD V Ot Z95.810 PRESENCE OF AUTOMATIC (IMPLANTABLE) CARD 08/30/2017 GUILHERME WARE MD, V Ot F32.9 MAJOR DEPRESSIVE DISORDER, SINGLE EPISOD 08/30/2017 UGILHERME WARE MD V Ot 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, 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 08/30/2017 GUILHERME WARE MD V Ot K21.9 GASTRO-ESOPHAGEAL REFLUX DISEASE WITHOUT 08/30/2017 GUILHERME WARE MD V Ot R25.1 TREMOR, UNSPECIFIED 08/30/2017 GUILHERME WARE MD V Ot Z95.810 PRESENCE OF AUTOMATIC (IMPLANTABLE) CARD 09/11/2017 GUILHERME WARE MD, V Ot F32.9 MAJOR DEPRESSIVE DISORDER, SINGLE EPISOD 09/11/2017 GUILHERME WARE MD V Ot 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, 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 09/11/2017 GUILHERME WARE MD, V Ot K21.9 GASTRO-ESOPHAGEAL REFLUX DISEASE WITHOUT 09/11/2017 GUILHERME WARE MD V Ot R25.1 TREMOR, UNSPECIFIED 09/11/2017 GUILHERME WARE MD V Ot Z95.810 PRESENCE OF AUTOMATIC (IMPLANTABLE) CARD 09/13/2017 GUILHERME WARE MD, V Ot F32.9 MAJOR DEPRESSIVE DISORDER, SINGLE EPISOD 09/13/2017 GUILHERME WARE MD V Ot 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, 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 09/13/2017 GUILHERME WARE MD V Ot K21.9 GASTRO-ESOPHAGEAL REFLUX DISEASE WITHOUT 09/13/2017 GUILHERME WARE MD V Ot R25.1 TREMOR, UNSPECIFIED 09/13/2017 PEDRO WARE MDNDRA V Ot Z95.810 PRESENCE OF AUTOMATIC (IMPLANTABLE) CARD 10/04/2017 GUILHERME WARE MD V Ot F32.9 MAJOR DEPRESSIVE DISORDER, SINGLE EPISOD 10/04/2017 AC WARE MDRA V Ot 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, 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 10/04/2017 GUILHERME WARE MD V Ot K21.9 GASTRO-ESOPHAGEAL REFLUX DISEASE WITHOUT 10/04/2017 GUILHERME WARE MD V Ot R25.1 TREMOR, UNSPECIFIED 10/04/2017 PEDRO WARE MDNDRA V Ot Z95.810 PRESENCE OF AUTOMATIC (IMPLANTABLE) CARD 11/15/2017 Ot I48.0 PAROXYSMAL ATRIAL FIBRILLATION 11/27/2017 GUILHERME WARE MD, V Ot F32.9 MAJOR DEPRESSIVE DISORDER, SINGLE EPISOD 11/27/2017 GUILHERME WARE MD V Ot 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, 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 11/27/2017 GUILHERME WARE MD V Ot K21.9 GASTRO-ESOPHAGEAL REFLUX DISEASE WITHOUT 11/27/2017 GUILHERME WARE MD V Ot R25.1 TREMOR, UNSPECIFIED 11/27/2017 GUILHERME WARE MD V Ot Z95.810 PRESENCE OF AUTOMATIC (IMPLANTABLE) CARD 01/09/2018 DEBRA KELLEY MD V Ot I48.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 01/11/2018 Ot I48.0 PAROXYSMAL ATRIAL FIBRILLATION 01/11/2018 LUIS ANGEL KELLEY MDRUVA V Ot I48.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 03/27/2018 RUSLAN PACKER MD, Ot 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, 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 04/12/2018 RUSLAN PACKER MD, Ot 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, 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 04/16/2018 RUSLAN PACKER MD, Ot 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, 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 04/19/2018 RUSLAN PACKER MD, Ot 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, 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 04/23/2018 RUSLAN PACKER MD, Ot R53.83 OTHER FATIGUE 04/23/2018 MARIAJOSE NORTH MD, Ot Z09 ENCNTR FOR F/U EXAM AFT TRTMT FOR COND O 04/23/2018 MARIAJOSE NORTH MD, Ot Z95.810 PRESENCE OF AUTOMATIC (IMPLANTABLE) CARD Procedures Code Description [place] [address] ROUTINE VENIPUNCTURE 04/20/2012 57736 H PYLORI (IN-HOUSE) 04/20/2012 55954 CMP 04/20/2012 [id number] GFR CALC (RESULT ONLY) 04/20/2012 68581 CBC 04/20/2012 45135 LIPASE 04/21/2012 [id number] INFLUENZA A & B (IN-HOUSE) 03/16/2013 85768 EKG, TRACING (IN-HOUSE) 09/19/2013 99.61 ATRIAL CARDIOVERSION 09/21/2013 04382 ROUTINE VENIPUNCTURE 10/09/2013 32589 INR (IN HOUSE) 10/09/2013 [id number] GFR CALC (RESULT ONLY) 10/09/2013 45653 MAGNESIUM 10/09/2013 46764 CMP 10/09/2013 77132 ROUTINE VENIPUNCTURE 10/17/2013 Cardiolog [place] Goldstein 10/17/2013 56219 PT/INR 10/17/2013 31060 INR (IN HOUSE) 02/17/2014 13962 INR (IN HOUSE) 03/01/2014 36118 INR (IN HOUSE) 04/01/2014 86019 INR (IN HOUSE) 07/09/2014 72155 ROUTINE VENIPUNCTURE 07/09/2014 Results Test Result Range CBC With Differential/Platelet - 10/04/16 17:41 WBC 7.7 x10E3/uL 3.4-10.8 RBC 5.34 x10E6/uL 4.14-5.80 Hemoglobin 15.2 g/dL 12.6-17.7 Hematocrit 45.4 % 37.5-51.0 MCV 85 fL 79-97 MCH 28.5 pg 26.6-33.0 MCHC 33.5 g/dL 31.5-35.7 RDW 14.1 % 12.3-15.4 Platelets 279 x10E3/uL 150-379 Neutrophils 64 % Lymphs 26 % Monocytes 7 % Eos 2 % Basos 1 % Neutrophils (Absolute) 4.9 x10E3/uL 1.4-7.0 Lymphs (Absolute) 2.0 x10E3/uL 0.7-3.1 Monocytes(Absolute) 0.5 x10E3/uL 0.1-0.9 Eos (Absolute) 0.2 x10E3/uL 0.0-0.4 Baso (Absolute) 0.0 x10E3/uL 0.0-0.2 Immature Granulocytes 0 % Immature Grans (Abs) 0.0 x10E3/uL 0.0-0.1 Comp. Metabolic Panel (14) - 10/04/16 17:41 Glucose, Serum 92 mg/dL 65-99 BUN 9 mg/dL 6-20 Creatinine, Serum 0.82 mg/dL 0.76-1.27 eGFR If NonAfricn Am 119 mL/min/1.73 >59 eGFR If Africn Am 137 mL/min/1.73 >59 BUN/Creatinine Ratio 11 9-20 Sodium, Serum 138 mmol/L 134-144 Potassium, Serum 4.3 mmol/L 3.5-5.2 Chloride, Serum 96 mmol/L 96-106 Carbon Dioxide, Total 21 mmol/L 18-29 Calcium, Serum 9.5 mg/dL 8.7-10.2 Protein, Total, Serum 7.2 g/dL 6.0-8.5 Albumin, Serum 4.2 g/dL 3.5-5.5 Globulin, Total 3.0 g/dL 1.5-4.5 A/G Ratio 1.4 1.2-2.2 Bilirubin, Total 1.1 mg/dL 0.0-1.2 Alkaline Phosphatase, S 36 IU/L 39-117 AST (SGOT) 22 IU/L 0-40 ALT (SGPT) 26 IU/L 0-44 Lipid Panel - 10/04/16 17:41 Cholesterol, Total 140 mg/dL 100-199 Triglycerides 186 mg/dL 0-149 HDL Cholesterol 32 mg/dL >39 VLDL Cholesterol Lasha 37 mg/dL 5-40 LDL Cholesterol Calc 71 mg/dL 0-99 Urine drug screening test - 03/31/17 07:25 Urine phencyclidine detection by screening method NEGATIVE NEGATIVE Urine benzodiazepines detection by screening method NEGATIVE NEGATIVE Urine cocaine detection NEGATIVE NEGATIVE Urine amphetamines detection by screening method NEGATIVE NEGATIVE Urine methamphetamine detection by screening method NEGATIVE NEGATIVE Urine cannabinoids detection by screening method NEGATIVE NEGATIVE Urine opiates detection by screening method NEGATIVE NEGATIVE Urine barbiturates detection NEGATIVE NEGATIVE Screening urine tricyclic antidepressants detection NEGATIVE NEGATIVE Urine methadone detection by screening method NEGATIVE NEGATIVE Urine oxycodone detection NEGATIVE NEGATIVE Urine propoxyphene detection NEGATIVE NEGATIVE Complete blood count (CBC) with automated white blood cell (WBC) differential - 03/31/17 07:28 Blood leukocytes automated count (number/volume) 11.6 10*3/uL 4.3-11.0 Blood erythrocytes automated count (number/volume) 5.54 10*6/uL 4.35-5.85 Venous blood hemoglobin measurement (mass/volume) 16.0 g/dL 13.3-17.7 Blood hematocrit (volume fraction) 47 % 40-54 Automated erythrocyte mean corpuscular volume 85 [foz_us] 80-99 Automated erythrocyte mean corpuscular hemoglobin (mass per erythrocyte) 29 pg 25-34 Automated erythrocyte mean corpuscular hemoglobin concentration measurement ( mass/volume) 34 g/dL 32-36 Automated erythrocyte distribution width ratio 13.6 % 10.0-14.5 Automated blood platelet count (count/volume) 258 10*3/uL 130-400 Automated blood platelet mean volume measurement 11.7 [foz_us] 7.4-10.4 Automated blood neutrophils/100 leukocytes 39 % 42-75 Automated blood lymphocytes/100 leukocytes 56 % 12-44 Blood monocytes/100 leukocytes 3 % 0-12 Automated blood eosinophils/100 leukocytes 2 % 0-10 Automated blood basophils/100 leukocytes 1 % 0-10 Blood neutrophils automated count (number/volume) 4.5 10*3 1.8-7.8 Blood lymphocytes automated count (number/volume) 6.5 10*3 1.0-4.0 Blood monocytes automated count (number/volume) 0.4 10*3 0.0-1.0 Automated eosinophil count 0.2 10*3/uL 0.0-0.3 Automated blood basophil count (count/volume) 0.1 10*3/uL 0.0-0.1 PT panel in platelet poor plasma by coagulation assay - 03/31/17 07:28 Prothrombin time (PT) in platelet poor plasma by coagulation assay 22.4 s 12.2-14.7 INR in platelet poor plasma or blood by coagulation assay 2.0 0.8-1.4 Comprehensive metabolic panel - 03/31/17 07:28 Serum or plasma sodium measurement (moles/volume) 138 mmol/L 135-145 Serum or plasma potassium measurement (moles/volume) 3.3 mmol/L 3.6-5.0 Serum or plasma chloride measurement (moles/volume) 99 mmol/L 98-107 Carbon dioxide 13 mmol/L 21-32 Serum or plasma anion gap determination (moles/volume) 26 mmol/L 5-14 Serum or plasma urea nitrogen measurement (mass/volume) 12 mg/dL 7-18 Serum or plasma creatinine measurement (mass/volume) 1.38 mg/dL 0.60-1.30 Serum or plasma urea nitrogen/creatinine mass ratio 9 NRG Serum or plasma creatinine measurement with calculation of estimated glomerular filtration rate 60 NRG Serum or plasma glucose measurement (mass/volume) 384 mg/dL 70-105 Serum or plasma calcium measurement (mass/volume) 9.3 mg/dL 8.5-10.1 Serum or plasma total bilirubin measurement (mass/volume) 0.5 mg/dL 0.1-1.0 Serum or plasma alkaline phosphatase measurement (enzymatic activity/volume) 52 U/L 40-136 Serum or plasma aspartate aminotransferase measurement (enzymatic activity/ volume) 198 U/L 5-34 Serum or plasma alanine aminotransferase measurement (enzymatic activity/volume ) 267 U/L 0-55 Serum or plasma protein measurement (mass/volume) 6.8 g/dL 6.4-8.2 Serum or plasma albumin measurement (mass/volume) 3.5 g/dL 3.2-4.5 Serum or plasma troponin i.cardiac measurement (mass/volume) - 03/31/17 07:28 Serum or plasma troponin i.cardiac measurement (mass/volume) < ng/ mL <0.30 Blood manual differential performed detection - 03/31/17 07:28 Blood monocytes/100 leukocytes 9 % NRG Manual blood segmented neutrophils/100 leukocytes 27 % NRG Blood band neutrophils/100 leukocytes 4 % NRG Manual blood lymphocytes/100 leukocytes 56 % NRG Manual eosinophils/100 leukocytes in nose 3 % NRG Blood lymphocytes variant/100 leukocytes 1 % NRG Blood erythrocyte morphology finding identification NORMAL NRG Arterial blood gas measurement - 03/31/17 08:49 Blood pCO2 41 mm[Hg] 35-45 Blood pO2 72 mm[Hg] 79-93 Arterial blood bicarbonate measurement (moles/volume) 21 mmol/L 23-27 Arterial blood base excess by calculation -3.9 mmol/L - 2.5-2.5 Arterial blood oxygen saturation measurement 96 % 94-100 * Inhaled oxygen flow rate 80% NRG Arterial blood pH measurement with patient temperature correction 7.33 7.37-7.43 Arterial blood carbon dioxide, total measurement (moles/volume) 22.7 mmol/L 21.0-31.0 Body site l radial NRG Assessment of wrist artery patency prior to arterial puncture NEGATIVE NRG Setting of ventilation mode YES NRG Measurement of body temperature 95.7 NRG Whole blood basic metabolic panel - 12/23/17 07:18 Serum or plasma sodium measurement (moles/volume) 139 mmol/L 135-145 Serum or plasma potassium measurement (moles/volume) 3.8 mmol/L 3.6-5.0 Serum or plasma chloride measurement (moles/volume) 104 mmol/L 98-107 Carbon dioxide 23 mmol/L 21-32 Serum or plasma anion gap determination (moles/volume) 12 mmol/L 5-14 Serum or plasma urea nitrogen measurement (mass/volume) 12 mg/dL 7-18 Serum or plasma creatinine measurement (mass/volume) 0.88 mg/dL 0.60-1.30 Serum or plasma urea nitrogen/creatinine mass ratio 14 NRG Serum or plasma creatinine measurement with calculation of estimated glomerular filtration rate > NRG Serum or plasma glucose measurement (mass/volume) 97 mg/dL 70-105 Serum or plasma calcium measurement (mass/volume) 9.4 mg/dL 8.5-10.1 Automated blood complete blood count (hemogram) panel - 04/21/18 17:45 Blood leukocytes automated count (number/volume) 8.7 10*3/uL 4.3-11.0 Blood erythrocytes automated count (number/volume) 4.97 10*6/uL 4.35-5.85 Venous blood hemoglobin measurement (mass/volume) 13.8 g/dL 13.3-17.7 Blood hematocrit (volume fraction) 41 % 40-54 Automated erythrocyte mean corpuscular volume 83 [foz_us] 80-99 Automated erythrocyte mean corpuscular hemoglobin (mass per erythrocyte) 28 pg 25-34 Automated erythrocyte mean corpuscular hemoglobin concentration measurement ( mass/volume) 34 g/dL 32-36 Automated erythrocyte distribution width ratio 14.2 % 10.0-14.5 Automated blood platelet count (count/volume) 248 10*3/uL 130-400 Automated blood platelet mean volume measurement 10.7 [foz_us] 7.4-10.4 Whole blood basic metabolic panel - 04/21/18 17:45 Serum or plasma sodium measurement (moles/volume) 137 mmol/L 135-145 Serum or plasma potassium measurement (moles/volume) 3.9 mmol/L 3.6-5.0 Serum or plasma chloride measurement (moles/volume) 102 mmol/L 98-107 Carbon dioxide 25 mmol/L 21-32 Serum or plasma anion gap determination (moles/volume) 10 mmol/L 5-14 Serum or plasma urea nitrogen measurement (mass/volume) 12 mg/dL 7-18 Serum or plasma creatinine measurement (mass/volume) 0.85 mg/dL 0.60-1.30 Serum or plasma urea nitrogen/creatinine mass ratio 14 NRG Serum or plasma creatinine measurement with calculation of estimated glomerular filtration rate > NRG Serum or plasma glucose measurement (mass/volume) 92 mg/dL 70-105 Serum or plasma calcium measurement (mass/volume) 9.0 mg/dL 8.5-10.1 Magnesium - 04/21/18 17:45 Magnesium 2.1 mg/dL 1.8-2.4 THYROID STIMULATING HORMONE - 04/21/18 17:45 THYROID STIMULATING HORMONE 2.47 u[iU]/mL 0.35-4.94 Serum or plasma thyroxine (T4) free measurement (mass/volume) - 04/21/18 17:45 Serum or plasma thyroxine (T4) free measurement (mass/volume) 1.07 ng/dL 0.70-1.48 Cyanocobalamin measurement - 04/21/18 17:45 Vitamin B12 403 pg/mL 190-1100 VITAMIN D 25-HYDROXY - 04/21/18 17:45 VITAMIN D 25-HYDROXY (TOTAL) 18.7 % 30.0-100.0 Complete blood count (CBC) with automated white blood cell (WBC) differential - 05/09/18 17:53 Blood leukocytes automated count (number/volume) 9.4 10*3/uL 4.3-11.0 Blood erythrocytes automated count (number/volume) 5.35 10*6/uL 4.35-5.85 Venous blood hemoglobin measurement (mass/volume) 14.5 g/dL 13.3-17.7 Blood hematocrit (volume fraction) 44 % 40-54 Automated erythrocyte mean corpuscular volume 83 [foz_us] 80-99 Automated erythrocyte mean corpuscular hemoglobin (mass per erythrocyte) 27 pg 25-34 Automated erythrocyte mean corpuscular hemoglobin concentration measurement ( mass/volume) 33 g/dL 32-36 Automated erythrocyte distribution width ratio 14.1 % 10.0-14.5 Automated blood platelet count (count/volume) 291 10*3/uL 130-400 Automated blood platelet mean volume measurement 10.7 [foz_us] 7.4-10.4 Automated blood neutrophils/100 leukocytes 65 % 42-75 Automated blood lymphocytes/100 leukocytes 24 % 12-44 Blood monocytes/100 leukocytes 7 % 0-12 Automated blood eosinophils/100 leukocytes 3 % 0-10 Automated blood basophils/100 leukocytes 1 % 0-10 Blood neutrophils automated count (number/volume) 6.1 10*3 1.8-7.8 Blood lymphocytes automated count (number/volume) 2.3 10*3 1.0-4.0 Blood monocytes automated count (number/volume) 0.7 10*3 0.0-1.0 Automated eosinophil count 0.3 10*3/uL 0.0-0.3 Automated blood basophil count (count/volume) 0.1 10*3/uL 0.0-0.1 Encounters ACCT No. Visit Date/Time Discharge Status Pt. Type Provider Facility Loc./Unit Complaint [id number] 07/09/2014 16:43:00 07/09/2014 23:59:59 CLS Outpatient KARI AMADOR APRN [id number] 06/19/2014 16:53:00 06/19/2014 23:59:59 CLS Outpatient CHINA GOLDSTEIN MD [id number] 04/17/2014 16:42:00 04/17/2014 23:59:59 CLS Outpatient KARI AMADOR APRN [id number] 04/01/2014 17:00:00 04/01/2014 23:59:59 CLS Outpatient MADL [employer]ATE [employer]ER APPRENTICEVAMSIKARI L [id number] 03/01/2014 09:52:00 03/01/2014 23:59:59 CLS Outpatient MADL [employer] APPRENTICE, KARI L [id number] 02/17/2014 16:54:00 02/17/2014 23:59:59 CLS Outpatient MADL [employer] APPRENTICE, KARI L [id number] 02/10/2014 15:18:00 02/10/2014 23:59:59 CLS Outpatient MADL [employer] APPRENTICE, KARI L [id number] 01/24/2014 16:35:00 01/24/2014 23:59:59 CLS Outpatient MADL [employer] APPRENTICE, KARI L [id number] 01/15/2014 00:00:00 01/15/2014 23:59:59 CLS Outpatient CHINA GOLDSTEIN MD [id number] 12/19/2013 15:47:00 12/19/2013 23:59:59 CLS Outpatient ISABELLE FRANCIS DO [id number] 11/08/2013 15:03:00 11/08/2013 23:59:59 CLS Outpatient MADL [employer] APPRENTICE, KARI L [id number] 10/17/2013 15:03:00 10/17/2013 23:59:59 CLS Outpatient MADL [employer] APPRENTICE, KARI L [id number] 10/09/2013 10:47:00 10/09/2013 23:59:59 CLS Outpatient MADL [employer] APPRENTICE, KARI L [id number] 09/19/2013 15:59:00 09/19/2013 23:59:59 CLS Outpatient CHERI MESSINA MD [id number] 03/16/2013 09:41:00 03/16/2013 23:59:59 CLS Outpatient ISABELLE FRANCIS DO [id number] 05/10/2012 14:53:00 05/10/2012 23:59:59 CLS Outpatient BROOK WILSON MD [id number] 04/20/2012 11:21:00 04/20/2012 23:59:59 CLS Outpatient BROOK WILSON MD [id number] 07/31/2012 17:07:00 Document Registration [id number] 05/08/2018 09:00:00 ACT Outpatient STEVE SANTANA, [facility] [place] [id number] 04/21/2018 17:24:00 04/21/2018 23:59:59 CLS Outpatient MARIAJOSE NORTH MD [facility] LAB REVISION IMPLANTED PACEMAKER [id number] 04/21/2018 17:17:00 04/21/2018 23:59:59 CLS Outpatient RUSLAN PACKER MD [facility] LAB FATIGUE [id number] 04/19/2018 12:46:00 04/19/2018 17:00:00 DIS Outpatient RUSLAN PACKER MD [facility] REHAB ANOXIC BRAIN INJURY [id number] 03/27/2018 13:00:00 03/27/2018 00:01:00 DIS Outpatient RUSLAN PACKER MD [facility] REHAB ANOXIC BRAIN INJURY [id number] 12/23/2017 06:57:00 12/23/2017 23:59:59 CLS Outpatient WARREN SANTANA, DEBRA [place] [facility] LAB PAF 427.31,148.0 [id number] 09/21/2017 13:00:00 11/27/2017 09:29:00 DIS Outpatient GUILHERME WARE MD, V [facility] REHAB ANOXIC BRAIN INJURY ; BALANCE [id number] 08/24/2017 13:01:00 08/28/2017 00:01:00 DIS Outpatient GUILHERME WARE MD, V [facility] REHAB ANOXIC BRAIN INJURY ; BALANCE [id number] 03/31/2017 07:00:00 03/31/2017 09:18:00 DIS Emergency ELADIO DANIELSON MD [facility] ER ASYSTOLIC [id number] 06/06/2016 07:20:00 06/06/2016 23:59:59 CLS Outpatient CHINA GOLDSTEIN MD [facility] CARD AFIB [id number] 03/16/2015 09:33:00 03/16/2015 23:59:59 CLS Outpatient CHINA GOLDSTEIN MD [facility] CARD A-FIB,HTN [id number] 11/13/2013 08:42:00 11/14/2013 09:00:00 DIS Outpatient CHINA GOLDSTEIN MD [facility] AFIB,CHF,PALPITATIONS [id number] 10/01/2013 15:31:00 10/01/2013 23:59:59 CLS Outpatient MARK MAXWELL [facility] LAB CHF, RVR.PALPATATIONS [id number] 09/19/2013 18:30:00 09/25/2013 19:18:00 DIS Inpatient CHINA GOLDSTEIN MD [facility] CSD AFIB [id number] 05/09/2018 18:02:00 Document Registration [id number] 10/30/2017 17:26:00 Document Registration [id number] 05/25/2011 08:32:00 Document Registration [id number] 05/19/2011 10:47:00 Document Registration [id number] 04/17/2011 18:21:00 Document Registration [id number] 10/05/2016 09:12:00 Document Registration
[2018-05-09 18:20] LABS: ALANINE AMINOTRANSFERASE 37 U/L (0-55); ALBUMIN 4.5 GM/DL (3.2-4.5); ALKALINE PHOSPHATASE 60 U/L (40-136); AMYLASE 51 U/L (25-125); BILIRUBIN,TOTAL 0.4 MG/DL (0.1-1.0); BUN/CREATININE RATIO 10; CALCIUM 9.8 MG/DL (8.5-10.1); CARBON DIOXIDE 25 MMOL/L (21-32); CHLORIDE 100 MMOL/L (98-107); CREATINE KINASE 67 U/L (30-200); CREATININE SERUM 0.97 MG/DL (0.60-1.30); GFR ESTIMATED > 60; GLUCOSE 96 MG/DL (70-105); LIPASE 31 U/L (8-78); MAGNESIUM 2.2 MG/DL (1.8-2.4); POTASSIUM 3.6 MMOL/L (3.6-5.0); SODIUM 136 MMOL/L (135-145); TOTAL PROTEIN 8.1 GM/DL (6.4-8.2)
--- NOTE | 2018-05-09 18:23 | Diagnostic Imaging Report ---
INDICATION: Shortness of breath. COMPARISON: Prior examination from 03/31/2017. EXAMINATION: Single view of the chest was obtained. FINDINGS: Heart size is normal. Pacemaker overlies the left hemithorax. Lungs are clear. There is no pleural effusion or pneumothorax. The mediastinum is unremarkable. IMPRESSION: No acute cardiopulmonary abnormality. Dictated by: Dictated on workstation # [id number]
[2018-05-09 18:28] LABS: CREATINE KINASE MB 1.1 NG/ML (<6.6); MYOGLOBIN SERUM 21.7 NG/ML (10.0-92.0)
[2018-05-09] MEDS ORDERED: ASPIRIN 81 MG CHEW (CHILDREN'S ASA) PO ONE (18:30)
[2018-05-09] MEDS ORDERED: RECEIVED CONTRAST (Hold Metformin) IV SCH (18:45)
[2018-05-09] MEDS ORDERED: IOHEXOL 350 MG/ML 150 ML (OMNIPAQUE 350) VIAL IV ONE (18:45)
[2018-05-09] MEDS ORDERED: NS 100 ML (IVPB) BAG IV ONE (18:45)
--- NOTE | 2018-05-09 19:15 | Diagnostic Imaging Report ---
INDICATION: Left shoulder pain, shortness of breath and abdominal pain. TECHNIQUE: Multiple contiguous axial images were obtained through the chest, abdomen and pelvis after the uneventful bolus administration of intravenous contrast. MIP reconstructions were performed. FINDINGS: There are no discrete pulmonary nodules, masses or infiltrates. There is no pleural or pericardial fluid. There is no pneumothorax. There is no pathologically enlarged adenopathy in the chest. Thoracic aorta is normal in caliber without evidence of dissection. There are no filling defects seen within the pulmonary arteries to suggest pulmonary embolism. The liver is normal in size without focal lesions. There is no biliary ductal dilatation. Gallbladder is contracted. Spleen is normal. The pancreas and adrenal glands are unremarkable. The kidneys are unremarkable apart from a tiny cyst on left. Abdominal aorta is nonaneurysmal. Bowel gas pattern is nonspecific. There is no free air. There is no ascites. There are no focal inflammatory changes. Appendix is normal. There is no pelvic mass, adenopathy or free fluid. Bladder is normal. The osseous structures are unremarkable apart from mild degenerative change. IMPRESSION: Unremarkable CTA chest, abdomen and pelvis. Dictated by: Dictated on workstation # [id number]
[2018-05-09 20:05] VITALS: BP 114/75
== END 2018-05-09 20:00 | disposition home or self-care (01) ==
LOC: EDUNIT# 17:45 → ER 17:51
DX: R07.89 Other chest pain (principal); R10.13 Epigastric pain; I48.91 Unspecified atrial fibrillation; I42.9 Cardiomyopathy, unspecified; I50.9 Heart failure, unspecified; K21.9 Gastro-esophageal reflux disease without esophagitis; Z95.0 Presence of cardiac pacemaker; Z88.0 Allergy status to penicillin; Z86.19 Personal history of other infectious and parasitic diseases; Z87.19 Personal history of other diseases of the digestive system; Z82.49 Family history of ischemic heart disease and other diseases of the circulatory system; Z79.01 Long term (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; Z98.890 Other specified postprocedural states
CPT/HCPCS: 36415; 71045; 71275; 74177; 80053; 82150; 82550; 82553; 83690; 83735; 83874; 83880; 84484; 85025; 85610; 85730; 93005; 93041

== ENCOUNTER 2018-12-03 19:58 | Outpatient (CLI) | payer MEDICAID ==
[~2018-12-03 19:58] MED LIST changes: +APIX5TAB PO; +CALC-471 PO; +PANT40TA3; +SACU1TAB; +SERT50TA9
== END 2018-12-04 06:30 | disposition home or self-care (01) ==
LOC: SLEEP 19:58
PROVIDERS: ATTEND Nurse Practitioner Community Health
DX: G47.33 Obstructive sleep apnea (adult) (pediatric) (principal); I47.2 Ventricular tachycardia
CPT/HCPCS: 95810

== ENCOUNTER 2019-05-07 03:52 | Emergency (ER) | payer MEDICAID ==
[~2019-05-07] VITALS: Ht 162 cm; Wt 97.9 kg
[~2019-05-07 03:52] MED LIST changes: -SACU1TAB; +SACU1TAB2
[2019-05-07] MEDS ORDERED: LACTATED RINGERS 1,000 ML IV ONE (04:11)
[2019-05-07] MEDS ORDERED: KETOROLAC 30 MG/ML VIAL IVP STA (04:11)
[2019-05-07 04:27] LABS: BASOPHILS % (AUTO) 0 % (0-10); EOSINOPHILS # (AUTO) 0.1 10^3/uL (0.0-0.3); EOSINOPHILS % (AUTO) 1 % (0-10); HEMATOCRIT 41 % (40-54); HEMOGLOBIN 13.8 G/DL (13.3-17.7); LYMPHOCYTES # (AUTO) 1.6 X 10^3 (1.0-4.0); LYMPHOCYTES % (AUTO) 13 % (12-44); MEAN CORPUSCULAR HEMOGLOBIN 27 PG (25-34); MEAN CORPUSCULAR HGB CONC 34 G/DL (32-36); MEAN CORPUSCULAR VOLUME 80 FL (80-99); MEAN PLATELET VOLUME 10.7 FL (7.4-10.4); MONOCYTES # (AUTO) 1.3 X 10^3 (0.0-1.0); MONOCYTES % (AUTO) 10 % (0-12); NEUTROPHILS # (AUTO) 9.2 X 10^3 (1.8-7.8); NEUTROPHILS % (AUTO) 76 % (42-75); PLATELET COUNT 269 10^3/uL (130-400); RED CELL DISTRIBUTION WIDTH 14.8 % (10.0-14.5); WHITE BLOOD COUNT 12.2 10^3/uL (4.3-11.0)
[2019-05-07 04:37] LABS: PROTHROMBIN TIME PATIENT 13.8 SEC (12.2-14.7)
--- NOTE | 2019-05-07 04:41 | ED General ---
General Chief Complaint: Chest Pain Stated Complaint: NECK & CP,HRT RATE 100,SOB Nursing Triage Note: AMBULATORY TO ED ROOM 5 WITH C/O CHEST PAIN, NECK PAIN. PT POOR HX R/T BRAIN INJURY. DAD ANSWERING MOST TRIAGE QUESTIONS STATING CHECKED HR AT HOME AND AROUND 100 BPM. DAD STATES NEW CAREGIVER WITH PT DURING DAY, BUT HE WAS NOT NOTIFIED PT HAD BEEN HAVING CP UNTIL HE GOT HOME APPROX 1630 YESTERDAY AFTERNOON. Nursing Sepsis Screen: No Definite Risk Source of Information: Patient Exam Limitations: No Limitations History of Present Illness Date Seen by Provider: May 07, 2019 Time Seen by Provider: 04:08 Initial Comments Here with report of chest pain and neck pain with heart rate elevation to approximately 100 and not feeling well over the last 12-18 hours. Patient has history of anoxic brain injury and has problems with short-term memory. Recently started on donepezil and father was concerned secondary to being told that that could cause heart rate problems. He thought that that typically made at low if there is a problem. Patient does have history of pacemaker and atrial fibrillation as well as tachycardic event causing anoxic brain injury. Denies nausea, vomiting, sore throat or runny nose. States feels achy. Chest pain is nonspecific and achy. Timing/Duration: 12-24 Hours Severity: Mild, Moderate Modifying Factors: improves with Rest Associated Systoms: No Chest Pain, No Cough; Fever/Chills; No Nausea/Vomiting, No Shortness of Air, No Weakness Allergies and Home Medications Allergies Coded Allergies: Penicillins (Verified Allergy, Unknown, 09/19/13) Home Medications Apixaban 5 Mg Tablet, 5 MG PO BID, (Reported) Calcium Carbonate/Mag Carb/FA 1 Each Tablet, 1 EACH PO BID, (Reported) Metoprolol Tartrate 50 Mg Tablet, 50 MG PO BID, (Reported) Patient Home Medication List Home Medication List Reviewed: Yes Review of Systems Review of Systems Constitutional: see HPI; No chills; fever EENTM: no symptoms reported Respiratory: No cough, No short of breath Cardiovascular: chest pain; No edema Gastrointestinal: No abdominal pain, No nausea, No vomiting Genitourinary: no symptoms reported Musculoskeletal: muscle pain, neck pain Skin: no symptoms reported Psychiatric/Neurological: No Symptoms Reported All Other Systems Reviewed Negative Unless Noted: Yes Past [id number]-Vokdbe Hx Past Med/Social Hx: Reviewed Nursing Past Med/Soc Hx Patient Social History Alcohol Use: Denies Use Recreational Drug Use: No Smoking Status: Never a Smoker 2nd Hand Smoke Exposure: No Recent Foreign Travel: No Contact w/Someone Who Travel: No Recent Infectious Disease Expo: No Recent Hopitalizations: No Physical Abuse: No Sexual Abuse: No Mistreated: No Fear: No Immunizations Up To Date Tetanus Booster (TDap): More than 5yrs Past Medical History Surgeries: Yes (ABLATION, MINI JOHNNA, PEG TUBE, TRACH) Pacemaker Respiratory: No Cardiac: Yes Atrial Fibrillation, Cardiomyopathy Neurological: Yes Reproductive Disorders: No Genitourinary: No Gastrointestinal: Yes Gastroesophageal Reflux, Chronic Constipation Musculoskeletal: No Endocrine: No HEENT: No Cancer: No Psychosocial: No Integumentary: Yes Herpes Blood Disorders: No Adverse Reaction/Blood Tranf: No Family Medical History Reviewed Nursing Family Hx Family history: Arthritis 19 FATHER (rhumatoid arthrtis) 19 MOTHER Family history: Asthma 19 MOTHER Family history: Hypertension 19 FATHER History of - anemia 19 MOTHER Hypercholesterolemia 19 FATHER Psychotic disorder 19 MOTHER (depression/anxiety) Physical Exam Vital Signs Vital Signs - First Documented 05/07/19 03:59 Temp 37.7 Pulse 97 Resp 18 B/P (MAP) 137/82 (100) O2 Delivery Room Air Capillary Refill : Less Than 3 Seconds Height, Weight, BMI Height: 5'4.00" Weight: 217lbs. 7.0oz. [id number]; 37.00 BMI Method:Stated General Appearance: No Apparent Distress, WD/WN HEENT: PERRL/EOMI, Pharynx Normal Neck: Non Tender, Supple Respiratory: Lungs Clear, Normal Breath Sounds Cardiovascular: No Murmur, Tachycardia Gastrointestinal: Non Tender, Soft Back: Normal Inspection, No CVA Tenderness, No Vertebral Tenderness Extremity: Normal Range of Motion, Non Tender Neurologic/Psychiatric: Alert, Oriented x3 Procedures/Interventions Date of ETT Placement: Mar 31, 2017 Time of ETT Placement: 075 Progress/Results/Core Measures Suspected Sepsis Recent Fever Within 48 Hours: No Infection Criteria Present: None New/Unexplained Altered Menta: No Sepsis Screen: No Definite Risk SIRS Temperature: Pulse: 97 Respiratory Rate: 18 Laboratory Tests 05/07/19 04:13: White Blood Count 12.2H Blood Pressure 137 /82 Mean: 100 Laboratory Tests 05/07/19 04:13: Creatinine 0.78, INR Comment 1.0, Platelet Count 269, Total Bilirubin 0.7 Results/Orders Lab Results Laboratory Tests Test 05/07/19 04:13 Range/Units White Blood Count 12.2 H 4.3-11.0 10^3/uL Red Blood Count 5.14 4.35-5.85 10^6/uL Hemoglobin 13.8 13.3-17.7 G/DL Hematocrit 41 40-54 % Mean Corpuscular Volume 80 80-99 FL Mean Corpuscular Hemoglobin 27 25-34 PG Mean Corpuscular Hemoglobin Concent 34 32-36 G/DL Red Cell Distribution Width 14.8 H 10.0-14.5 % Platelet Count 269 130-400 10^3/uL Mean Platelet Volume 10.7 H 7.4-10.4 FL Neutrophils (%) (Auto) 76 H 42-75 % Lymphocytes (%) (Auto) 13 12-44 % Monocytes (%) (Auto) 10 0-12 % Eosinophils (%) (Auto) 1 0-10 % Basophils (%) (Auto) 0 0-10 % Neutrophils # (Auto) 9.2 H 1.8-7.8 X 10^3 Lymphocytes # (Auto) 1.6 1.0-4.0 X 10^3 Monocytes # (Auto) 1.3 H 0.0-1.0 X 10^3 Eosinophils # (Auto) 0.1 0.0-0.3 10^3/uL Basophils # (Auto) 0.0 0.0-0.1 10^3/uL Prothrombin Time 13.8 12.2-14.7 SEC INR Comment 1.0 0.8-1.4 Activated Partial Thromboplast Time 35 24-35 SEC Sodium Level 137 135-145 MMOL/L Potassium Level 3.7 3.6-5.0 MMOL/L Chloride Level 101 98-107 MMOL/L Carbon Dioxide Level 23 21-32 MMOL/L Anion Gap 13 5-14 MMOL/L Blood Urea Nitrogen 11 7-18 MG/DL Creatinine 0.78 0.60-1.30 MG/DL Estimat Glomerular Filtration Rate > 60 BUN/Creatinine Ratio 14 Glucose Level 111 H 70-105 MG/DL Calcium Level 9.4 8.5-10.1 MG/DL Corrected Calcium 9.2 8.5-10.1 MG/DL Magnesium Level 1.8 1.6-2.4 MG/DL Total Bilirubin 0.7 0.1-1.0 MG/DL Aspartate Amino Transf (AST/SGOT) 16 5-34 U/L Alanine Aminotransferase (ALT/SGPT) 24 0-55 U/L Alkaline Phosphatase 53 40-136 U/L Myoglobin 23.1 10.0-92.0 NG/ML Troponin I < 0.028 <0.028 NG/ML Total Protein 7.8 6.4-8.2 GM/DL Albumin 4.2 3.2-4.5 GM/DL Micro Results Microbiology 05/07/19 Influenza Types A,B Antigen (NANI) - Final, Complete My Orders Orders - BIENVENIDO MANNING MD Influenza A And B Antigens (05/07/19 04:11) Ed Iv/Invasive Line Start (05/07/19 04:11) Lactated Ringers (Lr 1000 Ml Iv Solution (05/07/19 04:11) Ketorolac Injection (Toradol Injection) (05/07/19 04:11) Cbc With Automated Diff (05/07/19 04:11) Magnesium (05/07/19 04:11) Chest 1 View, Ap/Pa Only (05/07/19 04:11) Ekg Tracing (05/07/19 04:11) Comprehensive Metabolic Panel (05/07/19 04:11) Myoglobin Serum (05/07/19 04:11) Protime With Inr (05/07/19 04:11) Partial Thromboplastin Time (05/07/19 04:11) O2 (05/07/19 04:11) Monitor-Rhythm Ecg Trace Only (05/07/19 04:11) Lipid Panel (05/08/19 06:00) Ed Iv/Invasive Line Start (05/07/19 04:11) Troponin I (05/07/19 04:13) Aspirin Chewable Tablet (Baby Aspirin Ch (05/07/19 04:47) Medications Given in ED Current Medications Medications Dose Ordered Sig/William Route Start Time Stop Time Status Last Admin Dose Admin Lactated Ringer's 1,000 ml @ 0 mls/hr Q0M ONCE IV 05/07/19 04:11 05/07/19 04:14 DC 05/07/19 04:20 999 MLS/HR Vital Signs/I&O 05/07/19 05/07/19 03:59 03:59 Temp 37.7 Pulse 97 Resp 18 B/P (MAP) 137/82 (100) O2 Delivery Room Air Room Air Capillary Refill : Less Than 3 Seconds Blood Pressure Mean: 100 Progress Note : Progress Note Seen and evaluated. IV, labs, EKG and chest x-ray ordered. LR 1 L bolus. Patient is on Eliquis. Aspirin 324 mg by mouth ordered. Toradol 30 mg IV ordered. Monitor patient. 0515: Heart rate now 80-82. Patient states that he feels better. No concerning findings on laboratory workup. Discharged home with return precautions. Patient and family verbalize understanding of instructions and agreement with plan. ECG Initial ECG Impression Date: May 07, 2019 Initial ECG Impression Time: 04:04 Initial ECG Rate: 95 Initial ECG Rhythm: Normal Sinus Initial ECG Comparisson: Unchanged Comment Sinus rhythm with normal axis. No evidence of ST elevation [place]. Unchanged from previous of 05/09/18 except rate slightly faster. Interpreted by me. Diagnostic Imaging Diagonstic Imaging: Xray Plain Films/CT/US/NM/MRI: chest Comments No acute findings Departure Impression Primary Impression: Myalgia Additional Impressions: Chest pain Qualified Codes: R07.9 - Chest pain, unspecified Fever Qualified Codes: R50.9 - Fever, unspecified Disposition: 01 HOME, SELF-CARE Condition: Improved Departure-Patient Inst. Decision time for Depature: 05:16 Referrals: BROOK WILSON MD (PCP/Family) Primary Care Physician Patient Instructions: Chest Pain, Fever, Adult (DC), Muscle and Bone Pain (DC) Add. Discharge Instructions: All discharge instructions reviewed with patient and/or family. Voiced understanding. You may take Tylenol/acetaminophen 1000 mg every 6-8 hours as needed for fever or pain. Follow up with your Dr. in a few days for recheck. Drink plenty of fluids. Return for worse pain, fever, vomiting, weakness, breathing problems or other concerns as needed. BIENVENIDO MANNING MD May 07, 2019 04:41
[2019-05-07 04:45] LABS: ALANINE AMINOTRANSFERASE 24 U/L (0-55); ALBUMIN 4.2 GM/DL (3.2-4.5); ALKALINE PHOSPHATASE 53 U/L (40-136); BILIRUBIN,TOTAL 0.7 MG/DL (0.1-1.0); BUN/CREATININE RATIO 14; CALCIUM 9.4 MG/DL (8.5-10.1); CARBON DIOXIDE 23 MMOL/L (21-32); CHLORIDE 101 MMOL/L (98-107); CREATININE SERUM 0.78 MG/DL (0.60-1.30); GFR ESTIMATED > 60; GLUCOSE 111 MG/DL (70-105); MAGNESIUM 1.8 MG/DL (1.6-2.4); POTASSIUM 3.7 MMOL/L (3.6-5.0); SODIUM 137 MMOL/L (135-145); TOTAL PROTEIN 7.8 GM/DL (6.4-8.2)
[2019-05-07] MEDS ORDERED: ASPIRIN 81 MG CHEW (CHILDREN'S ASA) PO STA (04:47)
[2019-05-07 05:32] VITALS: BP 124/74
--- NOTE | 2019-05-07 05:50 | Diagnostic Imaging Report ---
CLINICAL INDICATION: Patient with chest pain. EXAM: Portable chest x-ray upright view. COMPARISONS: Chest x-ray dated 05/09/2018. FINDINGS: Lungs/pleura: There is interval development of mild left basilar atelectasis. Otherwise, lungs are clear. There is no pneumothorax. There is no pleural effusion. Mediastinum: Unremarkable. Pulmonary vasculature: Unremarkable. Heart: Heart size is within normal limits, stable. Again seen postop change of chest including cardiac pacemaker/AICD. Bones/extrathoracic soft tissue: Unremarkable. IMPRESSION: There is interval development of mild left basilar atelectasis. Otherwise, stable chest x-ray exam with no interval radiographic evidence of acute cardiopulmonary process. Dictated by: Dictated on workstation # [id number]
== END 2019-05-07 05:32 | disposition home or self-care (01) ==
LOC: EDUNIT# 03:52 → ER 03:56
DX: M79.10 Myalgia, unspecified site (principal); R07.9 Chest pain, unspecified; R50.9 Fever, unspecified; I48.91 Unspecified atrial fibrillation; I42.9 Cardiomyopathy, unspecified; K21.9 Gastro-esophageal reflux disease without esophagitis; Z87.19 Personal history of other diseases of the digestive system; Z95.0 Presence of cardiac pacemaker; Z88.0 Allergy status to penicillin; Z82.49 Family history of ischemic heart disease and other diseases of the circulatory system
CPT/HCPCS: 36415; 71045; 80053; 83735; 83874; 84484; 85025; 85610; 85730; 87804; 93005; 93041

== ENCOUNTER → 2019-09-14 | Outpatient (CLI) | payer MEDICAID ==
[2019-09-14 09:34] LABS: ALBUMIN 4.1 GM/DL (3.2-4.5); CHLORIDE 103 MMOL/L (98-107); POTASSIUM 3.8 MMOL/L (3.6-5.0); SODIUM 138 MMOL/L (135-145)
[2019-09-14 09:35] LABS: CALCIUM 9.3 MG/DL (8.5-10.1)
[2019-09-14 09:36] LABS: TRIGLYCERIDES 155 MG/DL (<150); VLDL CHOLESTEROL 31 MG/DL (5-40)
[2019-09-14 09:37] LABS: GLUCOSE 98 MG/DL (70-105); TOTAL PROTEIN 7.5 GM/DL (6.4-8.2)
[2019-09-14 09:38] LABS: CARBON DIOXIDE 23 MMOL/L (21-32)
[2019-09-14 09:40] LABS: ALKALINE PHOSPHATASE 72 U/L (40-136); CREATININE SERUM 0.75 MG/DL (0.60-1.30); GFR ESTIMATED > 60
[2019-09-14 09:41] LABS: CHOLESTEROL 170 MG/DL (< 200)
[2019-09-14 09:42] LABS: BUN/CREATININE RATIO 12; HDL CHOLESTEROL 36 MG/DL (40-60)
[2019-09-14 09:43] LABS: ALANINE AMINOTRANSFERASE 25 U/L (0-55)
== END ==
LOC: LAB 08:43
PROVIDERS: ATTEND Internal Medicine
DX: Z00.00 Encounter for general adult medical examination without abnormal findings (principal); Z11.59 Encounter for screening for other viral diseases; E55.9 Vitamin D deficiency, unspecified; I48.0 Paroxysmal atrial fibrillation
CPT/HCPCS: 36415; 80053; 80061; 82306; 84443; 87522

== ENCOUNTER 2019-10-28 09:32 | Emergency (ER) | payer MEDICAID ==
[~2019-10-28] VITALS: Ht 167.7 cm; Wt 102.4 kg
--- OUTSIDE RECORDS SUMMARY | 2019-10-28 09:51 | XMS REPORT | Clinical Summary ---
Author Author [facility] Organization [facility] Address Unknown Phone Unavailable Care Team Providers Care Jira Developer Name Role Phone Erum Foreman MD PCP Erum Foreman MD 100 Source Comments Some departments are not documenting in the electronic medical record. If you d o not see the information that you expected, contact Release of Information in [facility] Information Management department at [phone] for further assistan ce in locating additional records.[facility] Allergies Comments Active Allergy Reactions Severity Noted Date Penicillins RASH Medium 06/06/2011 Medications End Date Status Medication Sig Dispensed Refills Start Date Active magnesium oxide (MAG-OX) Take 1 tablet 180 tablet 3 400 mg tablet by mouth 8 twice daily. Active sacubitril/valsartan Take one 180 tablet 3 11/07 (ENTRESTO) 24/26 mg tablet by 9 tablet mouth twice daily. Active metoprolol XL (TOPROL XL) TAKE ONE 90 tablet 3 50 mg extended release TABLET BY 0 tabletIndications: PAF MOUTH DAILY (paroxysmal atrial fibrillation) (HCC) Active spironolactone Take one 90 tablet 3 (ALDACTONE) 25 mg tablet by 0 tabletIndications: mouth daily. pulmonary edema due to Take with chronic heart failure food. Indications: fluid in the lungs due to chronic heart failure Active donepeziL (ARICEPT) 5 mg Take one 90 tablet 3 0 tablet tablet by 0 mouth at bedtime daily. Active sertraline (ZOLOFT) 50 mg TAKE ONE 30 tablet 0 tablet TABLET BY 0 MOUTH DAILY Active cholecalciferol (VITAMIN Take 2,000 0 D-3) 50 mcg (2,000 unit) Units by tablet mouth daily. Active aspirin EC 81 mg tablet Take one 90 tablet 0 tablet by 0 mouth daily. Take with food. 09/30/2019 Discontinued (Per Provider) apixaban (ELIQUIS) 5 mg Take 1 tablet 60 tablet 11 tablet by mouth 9 twice daily. 09/30/2019 Discontinued (Therapy comple yonatan) ergocalciferol (vitamin Take by 0 D2) (VITAMIN D PO) mouth. Active Problems Problem Noted Date Encounter for attention to tracheostomy 09/04/2019 Presence of heart assist device 09/04/2019 Other complications of gastrostomy 09/04/2019 REMINGTON on CPAP 04/17/2019 Chronic systolic heart failure 03/02/2018 NICM (nonischemic cardiomyopathy) 03/02/2018 Overview: 07/30/2018 - ECHO: Overall left ventri cular systolic function is normal. EF~ 55- 60%. Abnormal septal motion. Valves appear structurally normal without signficant stenosis or regurgit ation. No significant pericardial effusion. Normal chamber dimensions. Normal LV wall thickness Normal diastolic function. Normal aort ic root dimensions. Estimated peak systolic PA pressure = 19 mmHg. Devic e wires noted in RV and RA PAF (paroxysmal atrial fibrillation) 10/11/2017 Overview: Added automatically from request for nuvia sanchez [id number] Obesity (BMI 30-39.9) 09/12/2017 Preventative health care 07/31/2017 Depression 07/31/2017 Adjustment disorder with mixed anxiety and depressed mood 05/10/2017 Cognitive impairment 05/04/2017 Memory impairment 05/04/2017 Vision impairment 05/04/2017 Motor apraxia 05/04/2017 Impaired mobility and ADLs 05/03/2017 Anoxic brain injury 04/04/2017 Cardiac arrest 03/31/2017 Chronic anticoagulation 10/28/2013 Overview: Eliquis Chronic headaches 06/06/2011 Resolved Problems Problem Noted Date Resolved Date Atrial pacemaker lead displacement 04/24/2018 Hospital discharge follow-up 10/11/2017 0 Moderate malnutrition 04/21/2017 05/15/2017 Prolonged QT interval 04/10/2017 05/03/2017 Acute respiratory failure with hypoxia 04/04/2017 05/03/2017 Dysphagia 03/31/2017 05/03/2017 Overview: Added automatically from request for nuvia sanchez [id number] Atrial flutter 06/06/2011 03/31/2017 Permanent atrial fibrillation 06/05/2011 10/02/19 18 Overview: Multiple runs of AF, up to a few hours duration by 45hr holter. 09/20/2013 - ECHO: LVEF ~ 25%. LA siz e = 3.7 cm. Four chamber dilation with severe cardiomyopathy. LA dilatio n with no clot / thrombus, Severe TVR, mild MVR. Estimated PAP ~ 35mmHg. 09/21/2013 - Unsuccessful DCCV to maint ain NSR. ([facility]) 11/13/2013 - CHIQUIS + DCCV: Cardioversion to restore NSR. ([facility]). Ventricular tachycardia (paroxysmal) 06/05/2011 0 05/03/2017 Overview: 05/19- 45Hr Holter: SR, Afib & VT. Ave HR 83bpm, AVT=654 & min 33bpm. One 2 sec pause. Wide beats: 641, 0.3%. Wide pairs: 2;wide runs:25. Longest VT up to 13 beats ( wide beats). Multiple episodes of Afib, up to a few hours duration per Dr Goldstein. 05/25/11 Ex Echo stress test ( [facility] [place], [place]) 10.1 METS, 93% of predicted MR reached. No significant ar rhythmia or ischemia noted. EF 6-%, no abnormalities with stress. 2D echo: EF 60%. LA 3.4cm. RA, RV size normal. MIld MR & TR. AoV w/o stenosis or regurg. PAP est at 30mmHg. Encounters Care Team Description Date Type Specialty Erum Foreman MD Headache 10/25/2019 Telephone General Internal [place] Arnol Barros BSN Migraine (per patient) 10/25/2019 Telephone Cardiology Todd Sauer MD Atrial fibrillation 09/30/2019 Office Visit Cardiology Todd Sauer MD 09/30/2019 Hospital Cardiology Encounter Anamaria Melendez APRN-WATER SOFTENER SERVICER 09/30/2019 Hospital Cardiology Encounter 09/30/2019 Travel Adri Hawk MA Presence of heart assist device (HCC) (P rimary Dx) 09/27/2019 Orders Only Cardiology Anton Figueroa MD 09/19/2019 Hospital Cardiology Encounter Boogie Gurrola MA Preventative health care; PAF (paroxysmal atrial fibrillation) (HCC) 09/19/2019 Orders Only General Internal Il christel 09/19/2019 Erum Greenwood MD Medication Refill 09/09/2019 Refill Cardiology Belén Garg MD Veluri, Meena, MD Preventative health care (Primary Dx); Encounter for attention to tracheostomy (HCC); Presence of heart assist device (HCC); Other complications of gastrostomy (HCC); PAF (paroxysmal atrial fibrillation) (HCC); NICM (nonischemic cardiomyopathy) (HCC); REMINGTON on CPAP; Cognitive impairment; Chronic systolic heart failure (HCC); Need for hepatitis C screening test; Memory impairment; Chronic anticoagulation; Vitamin D deficiency 09/04/2019 Office Visit General Internal Il Belén Fish MD Anoxic brain injury (HCC) (Primary Dx); Memory impairment; Impaired instrumental activities of daily living (IADL) 09/04/2019 Office Visit [facility] 09/04/2019 Belén Martinez MD Scheduling 08/16/2019 Telephone [facility] Erum Foreman MD Medication Refill 08/10/2019 Refill Cardiology Becky Jimenez RN 08/05/2019 Telephone Cardiology Erum Foreman MD Medication Refill 08/01/2019 Refill Cardiology from Last 3 Months Immunizations Name Administration Dates Next Due DTaP Vaccine 06/21/1991, 11/30/1989, , 08/06/1987, 1986 Flu Vaccine =>6 Months 01/22/2018, 04/13/2017 Quadrivalent PF HEPATITIS B vaccine, 09/19/2013 unspecified (Historical) Hepatitis A vaccine, 09/19/2013 unspecified (Historical) Hib vaccine, unspecified 10/25/1990 (Historical) MMR Vaccine 06/21/1991, 08/06/1987 Meningococcal Conjug 08/27/2004 Vaccine IM (MenACWY-D)(Menactra) OPV 11/30/1989, 04/14/1988, , 1986 Pneumococcal Vaccine 04/13/2017 (23-Lisa Adult) Tdap Vaccine 09/19/2013 Family History Medical History Relation Name Comments [...] Used Never Smoker Smokeless Tobacco: Never Used Tobacco Cessation: Counseling Given: No Drinks/Week oz/Week Comments Alcohol Use No Sex Assigned at Date Recorded Not on file Industry Job Start Date Occupation Not on file Not on file Not on file Travel End Travel History Travel Start No recent travel history available. Date Recorded COVID-19 Exposure Response 09/30/2019 12:04 PM CDT In the last month, have you been in contact with No / Unsure someone who was confirmed or suspected to have Coronavirus / COVID-19? Last Filed Vital Signs Reading Time Taken Comments Vital Sign 110/70 09/30/2019 1:24 PM CDT Blood Pressure 68 09/30/2019 1:24 PM CDT Pulse 37.3 C (99.1 F) 09/04/2019 2:41 PM CDT Temperature 16 09/04/2019 2:41 PM CDT Respiratory Rate 97% 04/17/2019 10:35 AM DIRECTOR OF CARDIAC REHABILITATION Oxygen Saturation - - Inhaled Oxygen Concentration 100.7 kg (222 lb) 09/30/2019 1:24 PM CDT Weight 162.6 cm (5' 4") 09/30/2019 1:24 PM CDT Height 38.11 09/30/2019 1:24 PM CDT Body Mass Index Plan of Treatment Health Maintenance Due Date Last Done Comments HEPATITIS C SCREENING 01/30/2004 INFLUENZA VACCINE 12/19/2019 01/25/2019, 01/22/2018, 04/13/2017 PHYSICAL (COMPREHENSIVE) 09/03/2020 09/04/2019, EXAM 09/04/2019, 07/18/2018, Additional history exists TETANUS VACCINE 09/20/2023 09/19/2013, 06/21/1991, 11/30/1989, Additional history exists Implants Device Identifier Shelf Expiration Date Model / Serial / L ot Implanted Type Area Manufactur er Icd ICD 11/19/2019 [id number] / [id number] / [id number] Atriclip 45mm Pro2 Valeri Exclusion N/A: Heart ATRI CURE System Gillcoriv-Neli - [id number] Implanted: Qty: 1 on 09/29/2017 by Boo Singh III, MD (Trip) at [facility] Procedures Comments Procedure Name Priority Date/Time Associated Diag nosis DEVICE EVALUATION - ICD Routine 09/30/2019 Presen ce of heart assist 1:33 PM CDT device (HCC) 2D + DOPPLER ECHO W/ Routine 09/30/2019 NICM (non ischemic CONTRAST 1:08 PM CDT cardiomyopathy) (HC C) ECG-SCAN 09/30/2019 12:00 AM CDT DEVICE EVALUATION - Routine 09/19/2019 Cardiac de vice in situ REMOTE ICD 2:28 PM CDT TSH WITH FREE T4 REFLEX Routine 09/14/2019 PAF (p aroxysmal atrial fibrillation) (HCC) COMPREHENSIVE METABOLIC Routine 09/14/2019 [facility] PANEL LIPID PROFILE Routine 09/14/2019 Preventative he alth care from Last 3 Months Results * DEVICE EVALUATION - ICD (09/30/2019 1:33 PM CDT) RV Lead Biotronik OTHER OUTSIDE [employer] Player LAB RV Lead Model # Plexa ProMRI S 65 OTHER OUTSIDE LAB RV Lead Serial [id number] OTHER OUTSIDE # LAB RV Lead Implant 04/18/2017 OTHER OUTSIDE Date LAB RV Lead active fixation OTHER OUTSIDE Fixation LAB RV Lead RV mid septum OTHER OUTSIDE Location LAB RV Lead Pin IS1 OTHER OUTSIDE Connector ICD LAB RV Lead Coil Single OTHER OUTSIDE LAB Generator Biotronik OTHER OUTSIDE [employer] Player LAB Generator 03/02/2018 OTHER OUTSIDE Implnat Date LAB Device Type VVI-ICD OTHER OUTSIDE LAB Device Mode DDDR OTHER OUTSIDE LAB Mode Switch On OTHER OUTSIDE Status LAB Lower Rate 60 OTHER OUTSIDE Limit LAB Mode Switch 160 OTHER OUTSIDE (bpm) LAB Upper Rate 130 OTHER OUTSIDE Limit LAB Sensor Rate 120 OTHER OUTSIDE Limit LAB Pace AV Delay 250 OTHER OUTSIDE LAB Sense AV Delay 225 OTHER OUTSIDE LAB VT Monitor 176 OTHER OUTSIDE LAB High A Rate NA OTHER OUTSIDE Detect LAB VT Detect Rate ATP burst, ramp OTHER OUTSIDE Tx LAB FVT Detect Rate ATP burst, ramp OTHER OUTSIDE Tx LAB VF Detect Rate ATP, shock OTHER OUTSIDE Tx LAB VT Detect Rate 176 OTHER OUTSIDE (bpm) LAB FVT Detect Rate 194 OTHER OUTSIDE (bpm) LAB VF Detect Rate 231 OTHER OUTSIDE (bpm) LAB High V Rate 176 OTHER OUTSIDE Detect LAB RV Lead Diaph. 10 OTHER OUTSIDE Stimulation LAB Remote Yes OTHER OUTSIDE Monitoring? LAB Date of 05/09/17 OTHER OUTSIDE baseline remote LAB transmission Date of Last 09/19/19 OTHER OUTSIDE Remote Check LAB Device Todd Sauer MD OTHER OUTSIDE Implanted By LAB Date of Last 09/30/2019 OTHER OUTSIDE Programming LAB HF Patient Yes OTHER OUTSIDE LAB EP Device MAC OTHER OUTSIDE Followed By LAB EP Device Todd Sauer MD OTHER OUTSIDE Followed by LAB Name Known Diagnosed Yes OTHER OUTSIDE AFib LAB On No OTHER OUTSIDE Anticoagulation LAB BITA/EOL Per transmitter/communications programmer OTHER OUTS DIDI Indicator LAB Wireless Yes OTHER OUTSIDE Generator LAB Daily [place] Off OTHER OUTSIDE Threshld Alert? LAB Average Off OTHER OUTSIDE Venticular Rate LAB AT/AF On/Off Enrollment Date 04/18/17 OTHER OUTSIDE LAB VF On OTHER OUTSIDE Detection/Thera LAB py Off Remote Monitor [id number] OTHER OUTSIDE Serial# LAB Remote Cellular adaptor OTHER OUTSIDE Connectivity LAB Accssory Serial CardioMessenger Smart OTHER OUTSIDE Number LAB Known Diagnosed No OTHER OUTSIDE VT VT LAB ATP No OTHER OUTSIDE LAB Device Shock No OTHER OUTSIDE LAB Device Remote No OTHER OUTSIDE Manual LAB Downloads Next Remote 12/2019 OTHER OUTSIDE Check Due LAB Atrial Lead Biotronik OTHER OUTSIDE [employer] Player LAB Atrial Lead PRO MRI SOLIA S 53 OTHER OUTSIDE Model # LAB Atrial Lead [id number] OTHER OUTSIDE Serial # LAB Atrial Lead 03/02/2018 OTHER OUTSIDE Implant Date LAB Atrial Lead active fixation OTHER OUTSIDE Fixation LAB Atrial Lead Bipolar OTHER OUTSIDE Polarity LAB Atrial Lead Pin IS1 OTHER OUTSIDE Connector LAB Generator Model ILIVIA 7 DR-T OTHER OUTSIDE # LAB Generator [id number] OTHER OUTSIDE Serial # LAB Atrial Lead 10 OTHER OUTSIDE Diaph. LAB Stimulation EP SYSTEM MRI Yes OTHER OUTSIDE CONDITIONAL LAB Date of Last 09/30/2019 OTHER OUTSIDE ICM Evaluation LAB On AntiCoag verified 09/30/2019 OTHER OUTSIDE Date LAB Initial Rhythm -VS OTHER OUTSIDE LAB # Mode S. 0 OTHER OUTSIDE Events LAB # High AT/AF 0 OTHER OUTSIDE Evts LAB Time in AT/AF 0.0% OTHER OUTSIDE LAB # of VT Events 0 OTHER OUTSIDE LAB # of FVT Events 0 OTHER OUTSIDE LAB # of VF Events 0 OTHER OUTSIDE LAB # of NSVT 0 OTHER OUTSIDE Events LAB A Sense mv 8.9 OTHER OUTSIDE LAB A Capture V 1.0 auto OTHER OUTSIDE LAB A Capture ms 0.4 OTHER OUTSIDE LAB RV Sense mv 23.0 OTHER OUTSIDE LAB RV Capture V 0.7 OTHER OUTSIDE LAB RV Capture ms 0.4 OTHER OUTSIDE LAB Counters Clrd Yes OTHER OUTSIDE LAB Saved to Disc No OTHER OUTSIDE LAB Device Function Yes OTHER OUTSIDE WNL LAB Device No OTHER OUTSIDE Reprogram LAB Next 09/2020 OTHER OUTSIDE Programming LAB Check Due RV Voltage 2.0 OTHER OUTSIDE LAB RV Pulse Width 0.4 OTHER OUTSIDE LAB Initial Rhythm SR 70's OTHER OUTSIDE LAB Programming? Yes OTHER OUTSIDE LAB Interrogation? Yes OTHER OUTSIDE LAB A Lead ohms 710 OTHER OUTSIDE LAB RV Lead ohms 565 OTHER OUTSIDE LAB VS% >99% OTHER OUTSIDE LAB ICM Evaluation Yes OTHER OUTSIDE LAB Remote Check? No OTHER OUTSIDE LAB Battery Voltage 3.10 V OTHER OUTSIDE LAB Charge Time 9.3 seconds OTHER OUTSIDE LAB Estimated beginning of service OTHER OUTSIDE Longevity LAB -VS% 83 OTHER OUTSIDE LAB -TAMALE MACHINE FEEDER% 0 OTHER OUTSIDE LAB -VS% 17 OTHER OUTSIDE LAB AP-TAMALE MACHINE FEEDER% 0 OTHER OUTSIDE LAB PVC runs 0% OTHER OUTSIDE LAB Defib Lead 86 OTHER OUTSIDE Imped LAB Specimen Narrative Performed At OTHER OUTSIDE LAB H/o AF with RVR With MAZE procedure, no OAC [09/30/2019 2:22:57 PM - SRINIVASA OAKLEY][09/30/2019 3:33:31 PM - JOSE DANIEL] Dual chamber ICD programming. Device function appears normal. Check ventricular threshold while interrogati ng due to device unable. Lead appears stable; trends a are stable. Presenting EGM shows SR. Battery long evity Beginning of service. Events noted since 09/19/2019 remote : Atrial: None Ventricular: None. Changes made to programming: None Report reviewed by Dr. Sauer in clinic. Performing Organization Address City/State/Zipcode Ph one Number OTHER OUTSIDE LAB * 2D + DOPPLER ECHO (09/30/2019 1:08 PM CDT) BSA 2.1 m2 OTHER OUTSIDE LAB IVS 0.88 0.6 - 1.0 cm OTHER OUTSIDE LAB LVIDD 5.55 4.2 - 5.8 cm OTHER OUTSIDE LAB LVIDS 3.87 2.5 - 4.0 cm OTHER OUTSIDE LAB PW 0.87 0.6 - 1.0 cm OTHER OUTSIDE LAB Left Ventricle 106.75 62 - 150 mL OTHER OUTSIDE Diastolic LAB Volume Left Ventricle 50.83 34 - 74 mL OTHER OUTSIDE Diastolic LAB Volume Index Left Ventricle 53.22 21 - 61 mL OTHER OUTSIDE Systolic Volume LAB Left Ventricle 25.34 11 - 31 mL OTHER OUTSIDE Systolic Volume LAB Index TDI lateral e' 0.20 m/s OTHER OUTSIDE LAB Right 2.86 1.9 - 3.5 cm OTHER OUTSIDE Ventricular Mid LAB Diameter LA size 4.02 3.0 - 4.0 cm OTHER OUTSIDE LAB LA volume 79.16 18 - 58 mL OTHER OUTSIDE LAB Right Atrial 16.89 <18 cm2 OTHER OUTSIDE Area LAB Right Atrial 4.85 2.1 - 2.7 cm OTHER OUTSIDE Major Dimension LAB AV peak 1.23 m/s OTHER OUTSIDE velocity LAB MV Peak A Javon 0.51 m/s OTHER OUTSIDE LAB MV Peak E Javon 0.64 m/s OTHER OUTSIDE PW LAB Right 4.21 2.5 - 4.1 cm OTHER OUTSIDE Ventricular LAB Basal Diameter Right Heart 0.17 m/s OTHER OUTSIDE Systolic TDI S' LAB Right Heart 2.23 >1.7 cm OTHER OUTSIDE Systolic Mmode LAB TAPSE Sinus 3.24 2.8 - 4.0 cm OTHER OUTSIDE LAB Referring Erum Foreman MD OTHER OUTSIDE Provider LAB CV ECHO PV Nadia Taveras RN OTHER OUTSIDE DOBBY LOOMS PEGGER LAB FS 30.27 28 - 44 % OTHER OUTSIDE LAB EF 51.46 % OTHER OUTSIDE LAB LV mass 182.03 88 - 224 g OTHER OUTSIDE LAB RWT 0.31 <=0.42 OTHER OUTSIDE LAB E/A ratio 1.25 OTHER OUTSIDE LAB TV rest 31 mmHg OTHER OUTSIDE pulmonary LAB artery pressure Lateral E/E' 3.20 OTHER OUTSIDE ratio LAB Left Atrium 37.70 16 - 34 OTHER OUTSIDE Index LAB Cardiology Siemens [id number] OTHER OUTSIDE Ultrasound LAB Machine Left Ventricle 86.68 49 - 115 g/m2 OTHER OUTSIDE Mass Index LAB TDI Medial e' 0.090 m/s OTHER OUTSIDE LAB Medial E/E' 7.11 OTHER OUTSIDE ratio LAB ECHO EF 55 % OTHER OUTSIDE LAB Specimen Narrative Performed At OTHER OUTSIDE LAB Left Ventricle: Normal size, wall th ickness and mass. Normal geometry. Normal ejection fraction with LVEF=55%. No segmental wall motion abnormalities. Right Ventricle: Normal size and eje ction fraction. Left Atrium: Mildly dilated. Valves are normal in structure and f unction. Estimated Peak Systolic PA Pressure 31 mmHg No pericardial effusion. Compared with study dated 07/30/18, n o significant change is noted. Performing Organization Address City/State/Zipcode Ph one Number OTHER OUTSIDE LAB * ECG-SCAN (09/30/2019 12:00 AM CDT) Narrative Performed At This result has an attachment that is n ot available. Ordered by an unspecified provider. * DEVICE EVALUATION - REMOTE ICD (09/19/2019 2:28 PM CDT) RV Lead Biotronik OTHER OUTSIDE [employer] Player LAB RV Lead Model # Plexa ProMRI S 65 OTHER OUTSIDE LAB RV Lead Serial [id number] OTHER OUTSIDE # LAB RV Lead Implant 04/18/2017 OTHER OUTSIDE Date LAB RV Lead active fixation OTHER OUTSIDE Fixation LAB RV Lead RV mid septum OTHER OUTSIDE Location LAB RV Lead Pin IS1 OTHER OUTSIDE Connector ICD LAB RV Lead Coil Single OTHER OUTSIDE LAB Generator Biotronik OTHER OUTSIDE [employer] Player LAB Generator 03/02/2018 OTHER OUTSIDE Implnat Date LAB Device Type VVI-ICD OTHER OUTSIDE LAB Device Mode DDDR OTHER OUTSIDE LAB Mode Switch On OTHER OUTSIDE Status LAB Lower Rate 60 OTHER OUTSIDE Limit LAB Mode Switch 160 OTHER OUTSIDE (bpm) LAB Upper Rate 130 OTHER OUTSIDE Limit LAB Sensor Rate 120 OTHER OUTSIDE Limit LAB Pace AV Delay 250 OTHER OUTSIDE LAB Sense AV Delay 250 OTHER OUTSIDE LAB VT Monitor 176 OTHER OUTSIDE LAB High A Rate NA OTHER OUTSIDE Detect LAB VT Detect Rate ATP burst, ramp OTHER OUTSIDE Tx LAB FVT Detect Rate ATP burst, ramp OTHER OUTSIDE Tx LAB VF Detect Rate ATP, shock OTHER OUTSIDE Tx LAB VT Detect Rate 176 OTHER OUTSIDE (bpm) LAB FVT Detect Rate 194 OTHER OUTSIDE (bpm) LAB VF Detect Rate 231 OTHER OUTSIDE (bpm) LAB High V Rate 176 OTHER OUTSIDE Detect LAB RV Lead Diaph. 10 OTHER OUTSIDE Stimulation LAB Remote Yes OTHER OUTSIDE Monitoring? LAB Date of 05/09/17 OTHER OUTSIDE baseline remote LAB transmission Date of Last 09/19/19 OTHER OUTSIDE Remote Check LAB Device Todd Sauer MD OTHER OUTSIDE Implanted By LAB Date of Last 04/17/19 OTHER OUTSIDE Programming LAB Date of Last 04/17/19 OTHER OUTSIDE Interrogation LAB HF Patient Yes OTHER OUTSIDE LAB EP Device MAC OTHER OUTSIDE Followed By LAB EP Device Todd Sauer MD OTHER OUTSIDE Followed by LAB Name Known Diagnosed Yes OTHER OUTSIDE AFib LAB On Yes OTHER OUTSIDE Anticoagulation LAB BITA/EOL Per transmitter/communications programmer OTHER OUTS DIDI Indicator LAB Wireless Yes OTHER OUTSIDE Generator LAB Daily [place] Off OTHER OUTSIDE Threshld Alert? LAB Average Off OTHER OUTSIDE Venticular Rate LAB AT/AF On/Off Enrollment Date 04/18/17 OTHER OUTSIDE LAB VF On OTHER OUTSIDE Detection/Thera LAB py Off Remote Monitor [id number] OTHER OUTSIDE Serial# LAB Remote Cellular adaptor OTHER OUTSIDE Connectivity LAB Accssory Serial CardioMessenger Smart OTHER OUTSIDE Number LAB Known Diagnosed No OTHER OUTSIDE VT VT LAB ATP No OTHER OUTSIDE LAB Device Shock No OTHER OUTSIDE LAB Device Remote No OTHER OUTSIDE Manual LAB Downloads Next Remote 12/2019 OTHER OUTSIDE Check Due LAB Atrial Lead Biotronik OTHER OUTSIDE [employer] Player LAB Atrial Lead PRO MRI SOLIA S 53 OTHER OUTSIDE Model # LAB Atrial Lead [id number] OTHER OUTSIDE Serial # LAB Atrial Lead 03/02/2018 OTHER OUTSIDE Implant Date LAB Atrial Lead active fixation OTHER OUTSIDE Fixation LAB Atrial Lead Bipolar OTHER OUTSIDE Polarity LAB Atrial Lead Pin IS1 OTHER OUTSIDE Connector LAB Generator Model ILIVIA 7 DR-T OTHER OUTSIDE # LAB Generator [id number] OTHER OUTSIDE Serial # LAB Atrial Lead 10 OTHER OUTSIDE Diaph. LAB Stimulation EP SYSTEM MRI Yes OTHER OUTSIDE CONDITIONAL LAB Date of Last 06/20/2019 OTHER OUTSIDE ICM Evaluation LAB Next ICM Check 09/20/2019 OTHER OUTSIDE Due LAB Remote Check? Yes OTHER OUTSIDE LAB Specimen Narrative Performed At OTHER OUTSIDE LAB Current monitoring period 09/19/19 to 12/19/19. PAF. OAC on med list. [09/19/2019 2:52:46 PM - ELISSA DANIEL] Scheduled [employer] Home Monitoring tra nsmission received for dual chamber ICD. Device function appears normal. Presenting EGM shows AP-VS 60 bpm. Kyle caryn ok 3.12V DANA. Events noted since 08/19/19: Atrial: 0. Ventricular: 0. Thoracic Impedance trend is stable for this patient. Please see scanned data sheets for shukrit her review. Next follow up appt 09/30/19 YMR. Next remote scheduled for 12/2019. Performing Organization Address City/State/Zipcode Ph one Number OTHER OUTSIDE LAB * TSH WITH FREE T4 REFLEX (09/14/2019) TSH 1.77 [facility] Specimen Blood - Blood Narrative Performed At This result has an attachment that is n ot available. Performing Organization Address City/[facility] Ph one Number [facility] [address] [place] [address], * LIPID PROFILE (09/14/2019) Cholesterol 170 [facility] Triglycerides 155 [facility] HDL 36 [facility] LDL 131 [facility] VLDL 31 [facility] Non HDL [facility] Cholesterol Cholesterol/HDL [facility] Ratio Specimen Blood - Blood Narrative Performed At This result has an attachment that is n ot available. Performing Organization Address City/State/[facility] Ph one Number [facility] [address] [place] [address], * COMPREHENSIVE METABOLIC PANEL (09/14/2019) Sodium 138 [facility] Potassium 3.8 [facility] Chloride 103 [facility] CO2 23 [facility] Blood Urea 9 [facility] Nitrogen Creatinine 0.75 [facility] Glucose 9.8 [facility] Calcium 9.3 [facility] Total Protein 7.5 [facility] Total Bilirubin 1.0 [facility] Albumin 4.1 [facility] Alk Phosphatase 72 [facility] AST (SGOT) 23 [facility] ALT (SGPT) 25 [facility] eGFR Non >60 [facility] eGFR >60 [facility] Burmese Anion Gap 12 [facility] Specimen Blood - Blood Narrative Performed At This result has an attachment that is n ot available. Performing Organization Address City/State/[facility] Ph one Number [facility] [address] [place] [address], from Last 3 Months Insurance Type Payer Benefit Subscriber ID Effective Phone Address Plan / Dates Group Medicaid [place] [employer] xxxxxxxxxxx 2017-P [facility] 1 [phone] Advance Directives Patient Hot Baller Explanation Type Date Recorded Advance 09/28/2017 12:56 PM Directive/DPOA Date Inactivated Comments Code Status Date Activated 04/24/2018 10:15 PM Full Code 04/24/2018 11:51 AM Provider has discussed Code Status No, discussion no t w/Patient or Family? necessary based on Dx 03/03/2018 12:38 PM Full Code 03/02/2018 11:31 AM Provider has discussed Code Status No, discussion no t w/Patient or Family? necessary based on Dx 11/02/2017 11:47 AM Full Code 11/01/2017 12:49 PM Provider has discussed Code Status No, more discussi on w/Patient or Family? needed 10/03/2017 3:06 PM Full Code 09/29/2017 6:00 AM Provider has discussed Code Status Yes w/Patient or Family? 05/25/2017 2:22 PM Full Code 05/03/2017 1:41 PM Provider has discussed Code Status Yes w/Patient or Family?
--- OUTSIDE RECORDS SUMMARY | 2019-10-28 09:52 | XMS REPORT | Encounter Summary ---
Author Author [facility] Organization [facility] Address Unknown Phone Unavailable Care Team Providers Care Communication And Outreach Manager Name Role Phone Erum Foreman MD PCP Erum Foreman MD 100 Encounter Details Care Team Description Date Type Department NoahBoogie Rodriguez MA Preventative health care; PAF (paroxysmal atrial fibrillation) ([facility]) 09/19/2019 Orders Only Internal Medicine [address] [place] [id number] Social History Date Tobacco Use Types Packs/Day Years Used Never Smoker Smokeless Tobacco: Never Used Drinks/Week oz/Week Comments Alcohol Use No Sex Assigned at Date Recorded Not on file Industry Job Start Date Occupation Not on file Not on file Not on file Travel End Travel History Travel Start No recent travel history available. Date Recorded COVID-19 Exposure Response 09/19/2019 6:30 AM CDT In the last month, have you been in contact with [facility] to assess someone who was confirmed or suspected to have Coronavirus / COVID-19? documented as of this encounter Functional Status Date of Assessment Functional Status Response 09/29/2017 Does the patient have a hearing impairment: No 05/03/2017 Does the patient have a visual impairment: Yes 05/03/2017 Does the patient have impaired ambulation: Yes 05/03/2017 Does the patient have an activity of daily living Ye s (ADL) impairment: 05/03/2017 Does the patient have an instrumental activity of Ye s daily living (IADL) impairment: Date of Assessment Cognitive Status Response 05/03/2017 Does the patient have a cognitive impairment: Yes documented as of this encounter Plan of Treatment Not on filedocumented as of this encounter Procedures Comments Procedure Name Priority Date/Time Associated Diag nosis TSH WITH FREE T4 REFLEX Routine 09/14/2019 PAF (p aroxysmal atrial fibrillation) (HCC) LIPID PROFILE Routine 09/14/2019 Preventative alth care COMPREHENSIVE METABOLIC Routine 09/14/2019 [facility] health care PANEL documented in this encounter Results * TSH WITH FREE T4 REFLEX (09/14/2019) TSH 1.77 [facility] Specimen Blood - Blood Narrative Performed At This result has an attachment that is n ot available. Performing Organization Address City[facility] Ph one Number [facility] [address] [place] [address], * COMPREHENSIVE METABOLIC PANEL (09/14/2019) Sodium 138 [...] MAIN LAB eGFR >60 [facility] Citizen Of [place] Anion Gap 12 [facility] Specimen Blood - Blood Narrative Performed At This result has an attachment that is n ot available. Performing Organization Address City/[facility] Ph one Number [facility] [address] [place] [address], [place] * LIPID PROFILE (09/14/2019) Cholesterol 170 [facility] Triglycerides 155 [facility] HDL 36 [facility] LDL 131 [facility] VLDL 31 [facility] Non HDL [facility] Cholesterol Cholesterol/HDL [facility] Ratio Specimen Blood - Blood Narrative Performed At This result has an attachment that is n ot available. Performing Organization Address City[facility] Ph one Number [facility] [address] [place] [address], documented in this encounter Visit Diagnoses Diagnosis Preventative health care Routine general medical examination at a health care facility PAF (paroxysmal atrial fibrillation) ([facility]) Atrial fibrillation documented in this encounter
--- OUTSIDE RECORDS SUMMARY | 2019-10-28 09:52 | XMS REPORT | Encounter Summary ---
Author Author [facility] Organization [facility] Address Unknown Phone Unavailable Care Team Providers Care Executive Wellness Programs Director Name Role Phone Erum Foreman MD PCP Erum Foreman MD 100 Reason for Visit * Reason Comments Medication Refill Encounter Details Care Team Description Date Type Department Erum Foreman MD [address] [place] [facility] Ortho/Med Pavilion l [address] [place] [id number] Medication Refill 09/09/2019 Refill [facility] [address] [place] [address] Social History Date Tobacco Use Types Packs/Day Years Used Never Smoker Smokeless Tobacco: Never Used Drinks/Week oz/Week Comments Alcohol Use No Sex Assigned at Date Recorded Not on file Industry Job Start Date Occupation Not on file Not on file Not on file Travel End Travel History Travel Start No recent travel history available. Date Recorded COVID-19 Exposure Response 09/04/2019 11:09 AM CDT In the last month, have [...] Not on filedocumented as of this encounter Visit Diagnoses Not on filedocumented in this encounter
--- OUTSIDE RECORDS SUMMARY | 2019-10-28 09:52 | XMS REPORT | Encounter Summary ---
Author Author [facility] Organization [facility] Address Unknown Phone Unavailable Care Team Providers Care Emergency Veterinary Technician Name Role Phone Erum Foreman MD PCP Erum Foreman MD 100 Reason for Referral * Consult, Test & Treat (Routine) Referred By Contact Referred To Contact Status Reason Specialty Diagnoses / Procedures Todd Sauer MD [address] [address] New Request Procedures REQUEST FOR CARDIOLOGY APPOINTMENT Reason for Visit * Reason Comments Atrial fibrillation * Consult, Test & Treat (Routine) Referred By Contact Referred To Contact Status Reason Specialty Diagnoses / Procedures Anamaria Melendez, STORE FACILITY TECHNICIAN-PERSONAL FINANCIAL REPRESENTATIVE [address] [employer] [facility] [place] [address] [place] [address] New Request Procedures REQUEST FOR CARDIOLOGY APPOINTMENT Encounter Details Care Team Description Date Type Department Todd Sauer MD 4000 [facility] [place] [address] [phone] Atrial fibrillation 09/30/2019 Office Visit [facility] [address] [place] [address] Social History Date Tobacco Use Types Packs/Day [...] / COVID-19? documented as of this encounter Last Filed Vital Signs Reading Time Taken Comments Vital Sign 110/70 09/30/2019 1:24 PM CDT Blood Pressure 68 09/30/2019 1:24 PM CDT Pulse - - Temperature - - Respiratory Rate - - Oxygen Saturation - - Inhaled Oxygen Concentration 100.7 kg (222 lb) 09/30/2019 1:24 PM CDT Weight 162.6 cm (5' 4") 09/30/2019 1:24 PM CDT Height 38.11 09/30/2019 1:24 PM CDT Body Mass Index documented in this encounter Functional Status Date of [...] impairment: Yes documented as of this encounter Patient Instructions * Patient Instructions* Arnol Hernandez BSN - 09/30/2019 1:30 PM CDT STOP Eliquis, START taking Aspirin 81 mg once daily We would like you to follow up in 6 months In order to provide you the best care possible we ask that you follow up as belo w: For NON-URGENT questions please contact us through your [employer] account. For all medication refills please contact your pharmacy or send a request jaswinder Oates. For all questions that may need to be addressed urgently please call the nursing triage line at [phone] Monday - Monday 8-5 only. Please leave a detailed m essage with your name, date of , and reason for your call. To schedule an appointment call [phone] or direct EP scheduling line at . Please allow 10-15 business days for the results of any testing to be reviewed. Please call our office if you have not heard from a nurse within this time frame . documented in this encounter Progress Notes * Todd Sauer MD - 09/30/2019 1:30 PM CDT Date of Service: 09/30/2019 Je Costa is a 34 y.o. male. HPI Je Costa was seen in the office today in electrophysiology [facility]. As you may know, he is a 34 y.o. male, with past medical history includi nglong-standing persistent atrial fibrillation with rapid ventricular response and tachycardia mediated nonischemic cardiomyopathy with chronic systolic conge stive heart failure. He unfortunately suffered an out of hospital cardiac arre st and was resuscitated in April 2017. He did have resultant anoxic brain i njury. He did undergo single-chamber Biotronik ICD placement for secondary pre vention on 04/18/2017. He underwent convergent atrial fibrillation ablation pro cedure with radiofrequency maze completed to the left posterior wall and atrial clip on 09/29/[address] Singh. He underwent endocardial transvenous pulmonary vein isolation and caval tricuspid isthmus ablation with Dr. Sauer on 11/03/2017. He continued to have LV dysfunction despite goal directed medical therapy. He underwent upgrade to a dual-chamber device on 03/02/2018 due to sinus bradyca rdia. He was placed on maximally tolerated GDMT and has been doing well on topr ol, entresto and spironolactone with improvement in LVEF. Since last visit he reports he has been doing well. He has a cognitive family coach he works with 3x weekly to good result. He also has been seeing a personal financial representative weekly and notes good improvement in physical exercise tolerance. His family als o reports he has been doing quite well overall. He also recently has been placed on a CPAP device and has been having good compliance with this. Overall the patient and family have no significant complaints. He is not having LE edema, orthopnea, PND, CP, weight gain, palpitations, SOB or other symptoms a t this time. He underwent TTE today which shows normalization of LVEF. EKG: Sinus rhythm, at 68 BPM, ID 144ms qrsD 84ms and qtc 443ms. Device: rare, Brief 1:1 AT events of several seconds duration, occurring mainly at night. No sustained events and no ventricular events. Assessment and Plan Non ischemic cardiomyopathy, normalization of LVEF on GDMT Hx Cardiac arrest DC ICD in situ Persistent atrial fibrillation s/p convergent AF ablation and atriclip proced ure now maintaining sinus rhythm. Anoxic brain injury with residual memory deficits REMINGTON on CPAP Mr. Costa appears to be doing overall very well. He has had no return of atrial fibrillation since his convergent AF ablation and atriclip placement in 2018. He has had no ventricular arrhythmias. He has had very brief episodes of 1:1 AT for which he is asymptomatic. He underwent TTE today which shows normalization of his LVEF. We will plan to co ntinue his GDMT with Entresto, Toprol and spironolactone at the current doses. He underwent atriclip procedure and his subsequent CHIQUIS shows good closure, there fore we will stop anticoagulation at this time. We will see him back in 6 months time. Thank you for allowing us to care for this patient. If there are any questions o r concerns, please don't hesitate to contact us. I have reviewed history and examined the patient. I had discussed the case with the fellow and I agree with the fellow's assessment and plan as above and amende d as needed. Doing great. No Afib. LVEF near normal. Will d/c Anticoagulation. Rica Sauer MD, [facility], [facility] Vitals: 09/30/19 1324 Weight: 100.7 kg (222 lb) Height: 1.626 m (5' 4") PainSc: Zero Body mass index is 38.11 kg/m. Past Medical History Patient Active Problem List Diagnosis Date Noted Encounter for attention to tracheostomy ([facility]) 09/04/2019 Presence of heart assist device ([facility]) 09/04/2019 Other complications of gastrostomy ([facility]) 09/04/2019 REMINGTON on CPAP 04/17/2019 Chronic systolic heart failure ([facility]) 03/02/2018 NICM (nonischemic cardiomyopathy) ([facility]) 03/02/2018 07/30/2018 - ECHO: Overall left ventricular systolic function is normal. EF~ 55- 60%. Abnormal septal motion. Valves appear structurally normal without sig nficant stenosis or regurgitation. No significant pericardial effusion. Normal chamber dimensions. Normal LV wall thickness Normal diastolic function. Normal aortic root dimensions. Estimated peak systo lic PA pressure = 19 mmHg. Device wires noted in RV and RA PAF (paroxysmal atrial fibrillation) ([facility]) 10/11/2017 Added automatically from request for surgery [id number] Obesity (BMI 30-39.9) 09/12/2017 Preventative health care 07/31/2017 Depression 07/31/2017 Adjustment disorder with mixed anxiety and depressed mood 05/10/2017 Cognitive impairment 05/04/2017 Memory impairment 05/04/2017 Vision impairment 05/04/2017 Motor apraxia 05/04/2017 Impaired mobility and ADLs 05/03/2017 Anoxic brain injury ([facility]) 04/04/2017 Cardiac arrest ([facility]) 03/31/2017 Chronic anticoagulation 10/28/2013 Eliquis Chronic headaches 06/06/2011 Review of Systems Constitution: Negative. HENT: Negative. Eyes: Negative. Cardiovascular: Negative. Respiratory: Negative. Endocrine: Negative. Hematologic/Lymphatic: Negative. Skin: Negative. Musculoskeletal: Negative. Gastrointestinal: Negative. Genitourinary: Negative. Neurological: Negative. Psychiatric/Behavioral: Negative. Allergic/Immunologic: Negative. Physical Exam Constitutional: He appears well-developed and well-nourished. No distress. HENT: Head: Normocephalic and atraumatic. Eyes: Pupils are equal, round, and reactive to light. Neck: No JVD present. Cardiovascular: Normal rate and regular rhythm. No murmur heard. Pulmonary/Chest: Effort normal and breath sounds normal. No respiratory distress . He has no wheezes. Abdominal: He exhibits no distension. There is no abdominal tenderness. Musculoskeletal: General: No edema. Neurological: He is alert and oriented to person, place, and time. No cranial ne rve deficit. Skin: Skin is warm and dry. No erythema. Psychiatric: He has a normal mood and affect. Problems Addressed Today No diagnosis found. Current Medications (including today's revisions) apixaban (ELIQUIS) 5 mg tablet Take 1 tablet by mouth twice daily. cholecalciferol (VITAMIN D-3) 50 mcg (2,000 unit) tablet Take 2,000 Units by mouth daily. donepeziL (ARICEPT) 5 mg tablet Take one tablet by mouth at bedtime daily. magnesium oxide (MAG-OX) 400 mg tablet Take 1 tablet by mouth twice daily. metoprolol XL (TOPROL XL) 50 mg extended release tablet TAKE ONE TABLET BY M OUTH DAILY sacubitril/valsartan (ENTRESTO) 24/26 mg tablet Take one tablet by mouth twi ce daily. sertraline (ZOLOFT) 50 mg tablet TAKE ONE TABLET BY MOUTH DAILY spironolactone (ALDACTONE) 25 mg tablet Take one tablet by mouth daily. Take with food. Indications: fluid in the lungs due to chronic heart failure documented in this encounter Plan of Treatment Order Schedule Name Type Priority Associated Diag noses Ordered: 09/30/2019 ECG 12-LEAD ECG Routine VT (ventricular tachycardia) (HCC) PAF (paroxysmal atrial fibrillation) (HCC) Expected: 04/01/2020, Expires: DEVICE EVALUATION - ICD Device Check Routine VT (ve ntricular tachycardia) (HCC) PAF (paroxysmal atrial fibrillation) (HCC) documented as of this encounter Procedures Comments Procedure Name Priority Date/Time Associated Diag nosis ECG-SCAN 09/30/2019 12:00 AM CDT documented in this encounter Results * ECG-SCAN (09/30/2019 12:00 AM CDT) Narrative Performed At This result has an attachment that is n ot available. Ordered by an unspecified provider. documented in this encounter Visit Diagnoses Diagnosis VT (ventricular tachycardia) (HCC) Paroxysmal ventricular tachycardia PAF (paroxysmal atrial fibrillation) (H CC) Atrial fibrillation Cardiac arrest (HCC) Cardiac arrest Chronic systolic heart failure (HCC) Chronic systolic heart failure NICM (nonischemic cardiomyopathy) (HCC) Other primary cardiomyopathies Anoxic brain injury (HCC) Anoxic brain damage Obesity (BMI 30-39.9) Obesity, unspecified REMINGTON on CPAP Obstructive sleep apnea (adult) (pediat jordan) documented in this encounter
--- OUTSIDE RECORDS SUMMARY | 2019-10-28 09:52 | XMS REPORT | Encounter Summary ---
Author Author [facility] Organization [facility] Address Unknown Phone Unavailable Care Team Providers Care Rental Car Porter Name Role Phone Erum Foreman MD PCP Erum Foreman MD 100 Encounter Details Care Team Description Date Type Department 09/19/2019 Travel Social History Date Tobacco Use Types Packs/Day [...] have you been in contact with [facility] to assess someone who was confirmed or [...]
--- OUTSIDE RECORDS SUMMARY | 2019-10-28 09:52 | XMS REPORT | Encounter Summary ---
Author Author [facility] Organization [facility] Address Unknown Phone Unavailable Care Team Providers Care Real Estate Rental Agent Name Role Phone Erum Foreman MD PCP Erum Foreman MD 100 Encounter Details Care Team Description Date Type Department Adri Hawk MA Presence of heart assist device (HCC) (P rimary Dx) 09/27/2019 Orders Only [facility] [address] [place] [address] Social History Date Tobacco Use Types Packs/Day [...] Not on filedocumented as of this encounter Results * DEVICE EVALUATION - ICD (09/30/2019 1:33 PM CDT) RV Lead Biotronik OTHER OUTSIDE Manager Of Environmental Services LAB RV Lead Model # Plexa ProMRI S 65 OTHER OUTSIDE LAB RV Lead Serial [id number] OTHER OUTSIDE # LAB RV Lead Implant 04/18/2017 OTHER OUTSIDE Date LAB RV Lead active fixation OTHER OUTSIDE Fixation LAB RV Lead RV mid septum OTHER OUTSIDE Location LAB RV Lead Pin IS1 OTHER OUTSIDE Connector ICD LAB RV Lead Coil Single OTHER OUTSIDE LAB Generator Biotronik OTHER OUTSIDE Manager Of Environmental Services LAB Generator 03/02/2018 OTHER OUTSIDE Implnat Date [...] No OTHER OUTSIDE Anticoagulation LAB BITA/EOL Per transmitter/senior statistical programmer OTHER OUTS DIDI Indicator LAB Wireless Yes OTHER OUTSIDE Generator LAB Daily Advance Off OTHER OUTSIDE Threshld Alert? LAB Average [...] Due LAB Atrial Lead Biotronik OTHER OUTSIDE Manager Of Environmental Services LAB Atrial Lead PRO MRI SOLIA S 53 OTHER OUTSIDE Model # LAB Atrial Lead [id number] OTHER OUTSIDE Serial # LAB Atrial Lead 03/02/2018 OTHER OUTSIDE Implant Date LAB Atrial Lead active fixation OTHER OUTSIDE Fixation LAB Atrial Lead Bipolar OTHER OUTSIDE Polarity LAB Atrial Lead Pin IS1 OTHER OUTSIDE Connector LAB Generator Model ILIVIA 7 DR-T OTHER OUTSIDE # LAB Generator [id number] OTHER OUTSIDE Serial # LAB Atrial Lead [...] Longevity LAB -VS% 83 OTHER OUTSIDE LAB -PIZZA BAKER% 0 OTHER OUTSIDE LAB -VS% 17 OTHER OUTSIDE LAB AP-PIZZA BAKER% 0 OTHER OUTSIDE LAB PVC runs 0% [...] City/State/Zipcode Ph one Number OTHER OUTSIDE LAB documented in this encounter Visit Diagnoses Diagnosis Presence of heart assist device (HCC) Heart replaced by heart assist device documented in this encounter
--- OUTSIDE RECORDS SUMMARY | 2019-10-28 09:52 | XMS REPORT | Encounter Summary ---
Author Author [facility] Organization [facility] Address Unknown Phone Unavailable Care Team Providers Care [employer] Name Role Phone Erum Foreman MD PCP Erum Foreman MD 100 Reason for Visit * Reason Comments Migraine per patient Encounter Details Care Team Description Date Type Department Arnol Hernandez BSN Migraine (per patient) 10/25/2019 Telephone The [address] [place] [address] Social History Date Tobacco Use Types Packs/Day [...] impairment: Yes documented as of this encounter Miscellaneous Notes * Telephone Encounter - Arnol Hernandez BSN - 10/25/2019 11:41 AM CDT Akash Reese Cali, BSN A transmission came through at 2:05 AM this morning. No arrhythmias recorded. * Telephone Encounter - Arnol Hernandez BSN - 10/25/2019 10:02 AM CDT Called and spoke with patient father. Father Je stated patient has been havin g migraines the last couple of weeks. Patient has not really had them in the las t couple of years. Je stated that patient stopped eliquis this past month and was wondering if that would cause that. Educated stopping eliquis wouldn't bring about the reason for a migraine now. Je denies patient having any SOA, fever, vomitting, diarrhea, staying hydrated, no change in diet, not missing any med ications. Will call home number to ask for most recent HR, BP, and weight. Will also see about getting a remote check on patient to see if any arrythmias have o ccurred during this time frame. Encouraged father to reach out to PCP as well. Sal strickland verbalized understanding. Called and spoke to home care. They gave readings from today below. Will request for a remote reading from device, if patient needs to do anything more on sendi ng remote will let them know HR 60 BP 109/60 Wt:[id number] * Telephone Encounter - Arnol Hernandez BSN - 10/25/2019 10:02 AM CDT ----- Message from Alejandra Murrieta LPN sent at 10/25/2019 9:27 AM CDT ----- Regarding: YMR- migraines VM from dad Je #[phone] on triage line. Said that his migraines have come back. His last one was for 1 1/2 days and was nauseated. Is that because he is off the Eliquis? Call dad to discuss. documented in this encounter Plan of Treatment Not on filedocumented as of this encounter Visit Diagnoses Not on filedocumented in this encounter
--- OUTSIDE RECORDS SUMMARY | 2019-10-28 09:52 | XMS REPORT | Encounter Summary ---
Author Author [facility] Organization [facility] Address Unknown Phone Unavailable Care Team Providers Care Travel Professional Name Role Phone Erum Foreman MD PCP Erum Foreman MD 100 Reason for Visit * Reason Comments Headache Encounter Details Care Team Description Date Type Department Erum Foreman MD [address] [facility] Ortho/Med Pavilion [address] [place] [address] Headache 10/25/2019 Telephone Internal Medicine [address] [place] [address] Social History Date Tobacco Use [...] Telephone Encounter - Deborah Montgomery MA - 10/25/2019 2:37 PM CDT Patients father called to report the patient has been having migraines lately. H e thought it could be from him recently stopping the eliquis. The migraine made him nauseated and lasted a day and half about. The father wants to know what to do or if they should nor worry about it. documented in this encounter Plan of Treatment Not on filedocumented as of this encounter Visit Diagnoses Not on filedocumented in this encounter
--- OUTSIDE RECORDS SUMMARY | 2019-10-28 09:52 | XMS REPORT | Encounter Summary ---
Author Author [facility] Organization [facility] Address Unknown Phone Unavailable Care Team Providers Care Information Technology Advisor Name Role Phone Erum Foreman MD PCP Erum Foreman MD 100 Encounter Details Care Team Description Date Type Department Anton Figueroa MD [address] [facility] [place] [address] [phone] 09/19/2019 [facility] cine Encounter Remote Device Check [phone] Social History Date Tobacco Use Types Packs/Day [...] have you been in contact with [facility] to assess someone who was confirmed or [...] impairment: Yes documented as of this encounter Medications at Time of Discharge Start Date End Date Medication Sig Dispensed Refills 09/04/2019 donepeziL (ARICEPT) 5 mg Take one 90 tablet 3 tablet tablet by mouth at bedtime daily. 05/25/2017 magnesium oxide (MAG-OX) Take 1 tablet 180 tablet 3 400 mg tablet by mouth twice daily. 05/20/2019 metoprolol XL (TOPROL XL) TAKE ONE 90 tablet 3 50 mg extended release TABLET BY tabletIndications: PAF MOUTH DAILY (paroxysmal atrial fibrillation) (HCC) 11/07/2018 sacubitril/valsartan Take one 180 tablet 3 (ENTRESTO) 24/26 mg tablet by tablet mouth twice daily. 09/09/2019 sertraline (ZOLOFT) 50 mg TAKE ONE 30 tablet 0 tablet TABLET BY MOUTH DAILY 07/01/2019 spironolactone Take one 90 tablet 3 (ALDACTONE) 25 mg tablet by tabletIndications: mouth daily. pulmonary edema due to Take with chronic heart failure food. Indications: fluid in the lungs due to chronic heart failure 10/29/2018 09/30/2019 apixaban (ELIQUIS) 5 mg Take 1 tablet 60 tablet 11 tablet by mouth twice daily. 09/30/2019 ergocalciferol (vitamin Take by 0 D2) (VITAMIN D PO) mouth. documented as of this encounter Plan of Treatment Not on filedocumented as of this encounter Procedures Comments Procedure Name Priority Date/Time Associated Diag nosis DEVICE EVALUATION - Routine 09/19/2019 Cardiac de vice in situ REMOTE ICD 2:28 PM CDT documented in this encounter Results * DEVICE EVALUATION - REMOTE ICD (09/19/2019 2:28 PM CDT) RV Lead Biotronik OTHER OUTSIDE Cement Block Maker LAB RV Lead Model # Plexa ProMRI S 65 OTHER OUTSIDE LAB RV Lead Serial [id number] OTHER OUTSIDE # LAB RV Lead Implant 04/18/2017 OTHER OUTSIDE Date LAB RV Lead active fixation OTHER OUTSIDE Fixation LAB RV Lead RV mid septum OTHER OUTSIDE Location LAB RV Lead Pin IS1 OTHER OUTSIDE Connector ICD LAB RV Lead Coil Single OTHER OUTSIDE LAB Generator Biotronik OTHER OUTSIDE Cement Block Maker LAB Generator 03/02/2018 OTHER OUTSIDE Implnat Date [...] Yes OTHER OUTSIDE Anticoagulation LAB BITA/EOL Per transmitter/peoplesoft programmer OTHER OUTS DIDI Indicator LAB Wireless Yes OTHER OUTSIDE Generator LAB Daily [place] Off OTHER OUTSIDE Threshld Alert? LAB Average [...] Due LAB Atrial Lead Biotronik OTHER OUTSIDE Cement Block Maker LAB Atrial Lead PRO MRI SOLIA S [...] patient. Please see scanned data sheets for katherine her review. Next follow up appt 09/30/19 YMR. Next remote scheduled for 12/2019. Performing Organization Address City/State/Zipcode Ph one Number OTHER OUTSIDE LAB documented in this encounter Visit Diagnoses Diagnosis Cardiac device in situ Unspecified cardiac device in situ documented in this encounter
--- OUTSIDE RECORDS SUMMARY | 2019-10-28 09:52 | XMS REPORT | Encounter Summary ---
Author Author [facility] Organization [facility] Address Unknown Phone Unavailable Care Team Providers Care Tube Inspector Name Role Phone Erum Foreman MD PCP Erum Foreman MD 100 Reason for Referral * Test (Routine) Referred By Contact Referred To Contact Status Reason Specialty Diagnoses / Procedures Anamaria Melendez APRN-NP [address] [facility] [address] [place] [address] Cvm [id number] Echo/Pv [address] [place] [address] No Auth Needed Cardiology Diagnoses NICM (nonischemic cardiomyopathy) (HCC) P rocedures 2-D + DOPPLER ECHOCARDIOGRAM WI ECHO TTHRC R-T 2D W/WOM-MODE COMPL SPEC&COLR D Encounter Details Care Team Description Date Type Department Anamaria Melendez APRN-NP [address] [facility] [place] [address] [place] [address] [phone] 09/30/2019 [facility] [address] [place], [place] [id number] Social History Date Tobacco Use Types Packs/Day [...] Signs Reading Time Taken Comments Vital Sign 118/72 09/30/2019 1:09 PM CDT Blood Pressure - - Pulse - - Temperature - - Respiratory Rate - - Oxygen Saturation - - Inhaled Oxygen Concentration 97.5 kg (215 lb) 09/30/2019 1:09 PM CDT Weight 162.6 cm (5' 4") 09/30/2019 1:09 PM CDT Height 36.9 09/30/2019 1:09 PM CDT Body Mass Index documented in [...] Date End Date Medication Sig Dispensed Refills 09/30/2019 aspirin EC 81 mg tablet Take one 90 tablet 0 tablet by mouth daily. Take with food. cholecalciferol (VITAMIN Take 2,000 0 D-3) 50 mcg (2,000 unit) Units by tablet mouth daily. 09/04/2019 donepeziL (ARICEPT) 5 mg Take one [...] lungs due to chronic heart failure documented as of this encounter Plan of Treatment Not on filedocumented as of this encounter Procedures Comments Procedure Name Priority Date/Time Associated Diag nosis 2D + DOPPLER ECHO W/ Routine 09/30/2019 NICM (non ischemic CONTRAST 1:08 PM CDT cardiomyopathy) (HC C) documented in this encounter Results * 2D + DOPPLER ECHO (09/30/2019 1:08 [...] ECHO PV Nadia Taveras RN OTHER OUTSIDE PLANT ACCOUNTANT LAB FS 30.27 28 - 44 % [...] 34 OTHER OUTSIDE Index LAB Cardiology Siemens [id number] OTHER OUTSIDE Ultrasound LAB Machine Left Ventricle [...] documented in this encounter Visit Diagnoses Diagnosis NICM (nonischemic cardiomyopathy) (HCC) Other primary cardiomyopathies documented in this encounter Administered Medications Action Date Dose Rate Site Medication Order MAR Action 09/30/2019 1:10 PM CDT 3 Diluted mL Hand, Ri ght perflutren lipid microspheres (DEFINITY) Given injection 1-20 Diluted mL 1-20 Diluted mL, Intravenous, ONCE PRN, 1 dose, Starting 09/30/19 at 1309, Until Mon09/30/19 at 1310, For Procedure, A hvac installer may only administer Definity through a saline lock. If IV is in use or a port, PICC, or central line is being used a nurse must administer. NOTE: This is a HIGH ALERT Medication., MAC Procedure Area Only - Medications documented in this encounter
--- OUTSIDE RECORDS SUMMARY | 2019-10-28 09:52 | XMS REPORT | Encounter Summary ---
Author Author [facility] Organization [facility] Address Unknown Phone Unavailable Care Team Providers Care Law Enforcement Director Name Role Phone Erum Foreman MD PCP Erum Foreman MD 100 Encounter Details Care Team Description Date Type Department Todd Sauer MD 4000 [facility] [place], [place] [id number] 09/30/2019 [facility] [address] [place] [address] Social History Date Tobacco Use Types Packs/Day [...] tabletIndications: PAF MOUTH DAILY (paroxysmal atrial fibrillation) ([facility]) 11/07/2018 sacubitril/valsartan Take one 180 tablet 3 [...] of heart assist 1:33 PM CDT device ([facility]) documented in this encounter Results * DEVICE EVALUATION - ICD (09/30/2019 1:33 PM CDT) RV Lead Biotronik OTHER OUTSIDE Early Breastfeeding Care Specialist LAB RV Lead Model # Plexa ProMRI S 65 OTHER OUTSIDE LAB RV Lead Serial [id number] OTHER OUTSIDE # LAB RV Lead Implant 04/18/2017 OTHER OUTSIDE Date LAB RV Lead active fixation OTHER OUTSIDE Fixation LAB RV Lead RV mid septum OTHER OUTSIDE Location LAB RV Lead Pin IS1 OTHER OUTSIDE Connector ICD LAB RV Lead Coil Single OTHER OUTSIDE LAB Generator Biotronik OTHER OUTSIDE Early Breastfeeding Care Specialist LAB Generator 03/02/2018 OTHER OUTSIDE Implnat Date [...] No OTHER OUTSIDE Anticoagulation LAB BITA/EOL Per transmitter/cnc lathe programmer OTHER OUTS DIDI Indicator LAB Wireless Yes OTHER OUTSIDE Generator LAB Daily [place] Off OTHER OUTSIDE Threshld Alert? LAB Average [...] Due LAB Atrial Lead Biotronik OTHER OUTSIDE Early Breastfeeding Care Specialist LAB Atrial Lead PRO MRI SOLIA S [...] Longevity LAB -VS% 83 OTHER OUTSIDE LAB -REGIONAL ACCOUNT DIRECTOR% 0 OTHER OUTSIDE LAB -VS% 17 OTHER OUTSIDE LAB AP-REGIONAL ACCOUNT DIRECTOR% 0 OTHER OUTSIDE LAB PVC runs 0% [...]
--- OUTSIDE RECORDS SUMMARY | 2019-10-28 09:52 | XMS REPORT | Encounter Summary ---
Author Author [facility] Organization [facility] Address Unknown Phone Unavailable Care Team Providers Care Automotive Parts Counter Assistant Name Role Phone Erum Foreman MD PCP Erum Foreman MD 100 Encounter Details Care Team Description Date Type Department 09/30/2019 Travel Social History Date Tobacco Use Types [...]
--- OUTSIDE RECORDS SUMMARY | 2019-10-28 09:53 | XMS REPORT | Encounter Summary ---
Author Author [facility] Organization [facility] Address Unknown Phone Unavailable Care Team Providers Care Retail Warehouse Associate Name Role Phone Erum Foreman MD PCP Erum Foreman MD 100 Reason for Visit * Reason Comments Medication Refill Encounter Details Care Team Description Date Type Department Erum Foreman MD [address] [facility] [address] [address] Medication Refill 08/10/2019 Refill The [facility] [address] [place] [address] Social History Date Tobacco Use Types Packs/Day Years Used Never Smoker Smokeless Tobacco: Never Used Drinks/Week oz/Week Comments Alcohol Use No Sex Assigned at Date Recorded Not on file Industry Job Start Date Occupation Not on file Not on file Not on file Travel End Travel History Travel Start No recent travel history available. documented as of this encounter Functional Status [...]
--- OUTSIDE RECORDS SUMMARY | 2019-10-28 09:53 | XMS REPORT | Encounter Summary ---
Author Author [facility] Organization [facility] Address Unknown Phone Unavailable Care Team Providers Care Web Application Developer Name Role Phone Erum Foreman MD PCP Erum Foreman MD 100 Reason for Visit * Reason Comments Medication Refill Encounter Details Care Team Description Date Type Department Erum Foreman MD [address] [place] [facility] l [address] [place] [address] Medication Refill 07/13/2019 Refill The [facility] [address] [place] [address] Social History Date Tobacco Use Types Packs/Day Years Used Never Smoker Smokeless Tobacco: Never Used Drinks/Week oz/Week Comments Alcohol Use No Sex Assigned at Date Recorded Not on file Industry Job Start Date Occupation Not on file Not on file Not on file Travel End Travel History Travel Start No recent travel history available. Date Recorded COVID-19 Exposure Response 06/20/2019 6:45 AM CDT In the last month, have you been in contact with [facility] to assess someone who was confirmed [...]
--- OUTSIDE RECORDS SUMMARY | 2019-10-28 09:53 | XMS REPORT | Encounter Summary ---
Author Author [facility] Organization [facility] Address Unknown Phone Unavailable Care Team Providers Care Manager Molecular Name Role Phone Erum Foreman MD PCP Erum Foreman MD 100 Reason for Visit * Reason Comments Patient Questions Encounter Details Care Team Description Date Type Department Prosper Flores RN Patient Questions 06/25/[address] [phone] Social History Date Tobacco Use Types Packs/Day [...] have you been in contact with [facility] to assess someone who was confirmed [...] encounter Miscellaneous Notes * Telephone Encounter - Prosper Flores RN - 06/25/2019 11:47 AM CDT Returned call and had to leave VM. Noted that on 06/19 remote thoracic impendence was not suggestive of any fluid overload. With it just being one foot, asked on VM if he has had an injury and if it was still swollen. Recommended elevating an d calling PCP. * Telephone Encounter - Prosper Flores RN - 06/25/2019 11:34 AM CDT ----- Message from Alejandra Murrieta LPN sent at 06/25/2019 10:33 AM CDT ----- Regarding: YMR- Osvaldo Je #[phone] called and said that his right foot had some swelling last night. documented in this encounter Plan of Treatment Not on filedocumented as of this encounter Visit Diagnoses Not on filedocumented in this encounter
--- OUTSIDE RECORDS SUMMARY | 2019-10-28 09:53 | XMS REPORT | Encounter Summary ---
Author Author [facility] Organization [facility] Address Unknown Phone Unavailable Care Team Providers Care Geothermal Powerplant Mechanic Helper Name Role Phone Erum Foreman MD PCP Erum Foreman MD 100 Reason for Visit * Reason Comments Scheduling Encounter Details Care Team Description Date Type Department Belén Garg MD 1999 [facility] [address] [address] Scheduling 08/16/2019 Telephone The [facility] [address] [place] [address] Social History Date Tobacco Use [...]
--- OUTSIDE RECORDS SUMMARY | 2019-10-28 09:53 | XMS REPORT | Encounter Summary ---
Author Author [facility] Organization [facility] Address Unknown Phone Unavailable Care Team Providers Care Event Mgr Name Role Phone Erum Foreman MD PCP Erum Foreman MD 100 Reason for Visit * Reason Comments Medication Refill spironolactone (ALDACTONE) 25 mg tablet/[facility] Encounter Details Care Team Description Date Type Department Anamaria Melendez, BARREL LOADER-SENIOR LOGISTICS MANAGER [address] [facility] [employer] [facility] [place] [address] [place] [address] [phone] Medication Refill (spironolactone (ALDAC TONE) 25 mg tablet/[facility] ) 07/01/2019 Refill The [facility] [address] [facility] [address] [place] [address] Social History Date Tobacco Use Types Packs/Day [...] have you been in contact with [facility] to assess someone who was confirmed or [...]
--- OUTSIDE RECORDS SUMMARY | 2019-10-28 09:53 | XMS REPORT | Encounter Summary ---
Author Author [facility] Organization [facility] Address Unknown Phone Unavailable Care Team Providers Care Food Concession Manager Name Role Phone Erum Foreman MD PCP Erum Foreman MD 100 Reason for Visit * Reason Comments Medication Refill Encounter Details Care Team Description Date Type Department Todd Sauer MD [address] [facility] [place] [address] Medication Refill 05/18/2019 Refill The [facility] [address] [place] [address] Social History Date Tobacco Use Types Packs/Day [...] filedocumented as of this encounter Visit Diagnoses Diagnosis PAF (paroxysmal atrial fibrillation) ([facility]) Atrial fibrillation documented in this encounter
--- OUTSIDE RECORDS SUMMARY | 2019-10-28 09:53 | XMS REPORT | Encounter Summary ---
Author Author [facility] Organization [facility] Address Unknown Phone Unavailable Care Team Providers Care Child Adolescent Care Name Role Phone Erum Foreman MD PCP Erum Foreman MD 100 Encounter Details Care Team Description Date Type Department Becky Jimenez RN 08/05/2019 Telephone The [address] [place] [address] Social History Date Tobacco Use Types Packs/Day [...] encounter Miscellaneous Notes * Telephone Encounter - Becky Jimenez RN - 08/05/2019 2:31 PM CDT Patient encouraged to begin new exercise gradually and to pay attention to how h e feels and to rest as needed. Reviewed plan with the patient. Patient verbalize d understanding and does not have any further questions or concerns. No further education requested from patient. Patient has our contact information for future needs. * Telephone Encounter - Becky Jimenez RN - 08/05/2019 2:31 PM CDT ----- Message from Alejandra Murrieta LPN sent at 08/05/2019 12:46 PM CDT ----- Regarding: YMR- exercise ? VM from estevan Wooten #[phone] on triage line. Said that he is starting exercise program at [facility] and Daren last is his circus trainer. Is there a heart rate limit on him? documented in this encounter Plan of Treatment Not on filedocumented as of this encounter Visit Diagnoses Not on filedocumented in this encounter
--- OUTSIDE RECORDS SUMMARY | 2019-10-28 09:53 | XMS REPORT | Encounter Summary ---
Author Author [facility] Organization [facility] Address Unknown Phone Unavailable Care Team Providers Care Cotton Header Name Role Phone Erum Foreman MD PCP Erum Foreman MD 100 Reason for Visit * Reason Comments Medication Refill Encounter Details Care Team Description Date Type Department Erum Foreman MD [address] [place] [facility] l [address] [place] [address] Medication Refill 07/10/2019 Refill The [facility] [address] [place] [address] Social History Date Tobacco Use Types Packs/Day [...] have you been in contact with [facility] to assess someone who was confirmed [...]
--- OUTSIDE RECORDS SUMMARY | 2019-10-28 09:53 | XMS REPORT | Encounter Summary ---
Author Author [facility] Organization [facility] Address Unknown Phone Unavailable Care Team Providers Care Forensic Psychiatrist Name Role Phone Erum Foreman MD PCP Erum Foreman MD 100 Encounter Details Care Team Description Date Type Department Anton Figueroa MD 4000 [facility]600 [place] [address] [phone] 06/20/2019 [facility]ovascular [facility] cine Encounter Remote Device Check [phone] Social History Date Tobacco Use Types Packs/Day [...] have you been in contact with [facility] to assess someone who was [...] Date End Date Medication Sig Dispensed Refills 05/25/2017 magnesium oxide (MAG-OX) Take 1 tablet 180 tablet 3 400 mg tablet by mouth twice daily. 05/20/2019 metoprolol XL (TOPROL XL) TAKE ONE 90 tablet 3 50 mg extended release TABLET BY tabletIndications: PAF MOUTH DAILY (paroxysmal atrial fibrillation) (HCC) 11/07/2018 sacubitril/valsartan Take one 180 tablet 3 (ENTRESTO) 24/26 mg tablet by tablet mouth twice daily. 10/29/2018 09/30/2019 apixaban (ELIQUIS) 5 mg Take 1 tablet 60 tablet 11 tablet by mouth twice daily. 03/04/2019 09/04/2019 donepezil (ARICEPT) 5 mg Take one 30 tablet 6 tablet tablet by mouth at bedtime daily. 09/30/2019 ergocalciferol (vitamin Take by 0 D2) (VITAMIN D PO) mouth. 06/11/2019 07/15/2019 sertraline (ZOLOFT) 50 mg TAKE ONE 30 tablet 0 tablet TABLET BY MOUTH DAILY 07/20/2018 07/01/2019 spironolactone Take one 90 tablet 3 (ALDACTONE) 25 mg tablet by tabletIndications: mouth daily. pulmonary edema due to Take with chronic heart failure food. Indications: Fluid in the Lungs due to Chronic Heart Failure documented as of this encounter Plan of Treatment Not on filedocumented as of this encounter Procedures Comments Procedure Name Priority Date/Time Associated Diag nosis DEVICE EVALUATION - Routine 06/20/2019 Cardiac de vice in situ REMOTE ICD 10:07 AM CDT documented in this encounter Results * DEVICE EVALUATION - REMOTE ICD (06/20/2019 10:07 AM CDT) RV Lead Biotronik OTHER OUTSIDE Mechanical Reliability Engineer LAB RV Lead Model # Plexa ProMRI S 65 OTHER OUTSIDE LAB RV Lead Serial [id number] OTHER OUTSIDE # LAB RV Lead Implant 04/18/2017 OTHER OUTSIDE Date LAB RV Lead active fixation OTHER OUTSIDE Fixation LAB RV Lead RV mid septum OTHER OUTSIDE Location LAB RV Lead Pin IS1 OTHER OUTSIDE Connector ICD LAB RV Lead Coil Single OTHER OUTSIDE LAB Generator Biotronik OTHER OUTSIDE Mechanical Reliability Engineer LAB Generator 03/02/2018 OTHER OUTSIDE Implnat Date [...] baseline remote LAB transmission Date of Last 06/20/19 OTHER OUTSIDE Remote Check LAB Device Todd [...] Yes OTHER OUTSIDE Anticoagulation LAB BITA/EOL Per transmitter/sas programmer OTHER OUTS DIDI Indicator LAB Wireless Yes OTHER OUTSIDE Generator LAB Daily [place] Off OTHER OUTSIDE Threshld Alert? LAB Average [...] OTHER OUTSIDE Manual LAB Downloads Next Remote 09/20/19 OTHER OUTSIDE Check Due LAB Atrial Lead Biotronik OTHER OUTSIDE Mechanical Reliability Engineer LAB Atrial Lead PRO MRI SOLIA S [...] SYSTEM MRI Yes OTHER OUTSIDE CONDITIONAL LAB Device Function Yes OTHER OUTSIDE WNL LAB Remote Check? Yes OTHER OUTSIDE LAB ICM Evaluation Yes OTHER OUTSIDE LAB Date of Last 06/20/2019 OTHER OUTSIDE ICM Evaluation LAB Next ICM Check 09/20/2019 OTHER OUTSIDE Due LAB Specimen Narrative Performed At OTHER OUTSIDE LAB Current monitoring period 06/20/19-09/19 Parox AF/Eliquis [08/19/2019 12:03:17 PM - JOSE EDUARDO GONZALEZ] Alert driven remote for RA threshold te sting unsuccessful. Overall testing is stable with last report threshold of 0.8V/0.4ms. EGM looks like FFOS may have interfered with test. Will continue to monitor. No new events. See attached for more information. [07/22/2019 9:59:08 AM - DON GORDON] Biotronik Alert transmission received f or dual chamber ICD. Episode details were received for a spo ntaneous nsT episode, which was detected on July 22, 2019 12:24:34 AM. Available EGM suggests brief AT vs. NSV T episode, rapid onset/termination visible 1:1 conduction. Avg V-rate of 1 82 bpm. Pt is V-paced 0% of the time. Normal de vice function and stable lead trends. Will continue to monitor. See attachment for further detail. Repo rt routed for cosign. [06/24/2019 9:54:16 AM - NORMA KRAMER] Please see scheened data sheets for fur ther detail/review. Unscheduled Biotronik Home monitoring t ransmission received for dual chamber ICD. Device function: as programmed. Bri steel longevity ok @ 100% 3.12V. Events noted since 06/20/19: Atrial: None. Ventricular: 2 monitored NSVT episode s on 06/23/19, EGMS show ST/AT 1:1 conduction, A/V rates 176 bpm, onset/te rm is not visible. Mean heart rates hve increased but remain below 10 0bpm. Most recent measured value is 96bpm. 10% A pacing. 0% V pacing. Thoracic impedance is not suggestive of fluid retention at this time. Next follow up 09/30/2019. _ [06/20/2019 10:11:40 AM - NORMA KRAMER] Please see scanned data sheets for katherine her review. Scheduled Biotronik Home Monitoring tra nsmission received for dual chamber ICD. Device function: as programmed. Batte ry longevity OK @ 100% 3.12V. Presenting EGM shows 80 bpm. Events noted since 04/17/19: Atrial: None. Ventricular: None. 0% RVpacing Thoracic impedance is not suggestive of fluid retention at this time. Next follow up 09/30/2019 w/ YMR. Report routed for review/cosign. Performing Organization Address City/State/Zipcode Ph one Number OTHER OUTSIDE LAB documented in this encounter Visit Diagnoses Diagnosis Cardiac device in situ Unspecified cardiac device in situ documented in this encounter
--- OUTSIDE RECORDS SUMMARY | 2019-10-28 09:53 | XMS REPORT | Encounter Summary ---
Author Author [facility] Organization [facility] Address Unknown Phone Unavailable Care Team Providers Care Car Changer Name Role Phone Erum Foreman MD PCP Erum Foreman MD 100 Reason for Visit * Reason Comments Medication Refill Encounter Details Care Team Description Date Type Department Erum Foreman MD 1999 [facility] [address] [address] [phone] Medication Refill 08/01/2019 Refill The [facility] [address] [place] [address] Social History Date Tobacco Use Types Packs/Day [...]
--- OUTSIDE RECORDS SUMMARY | 2019-10-28 09:53 | XMS REPORT | Encounter Summary ---
Author Author [facility] Organization [facility] Address Unknown Phone Unavailable Care Team Providers Care Nursing Specialist Name Role Phone Erum Foreman MD PCP Erum Foreman MD 100 Encounter Details Care Team Description Date Type Department 06/20/2019 Travel Social History Date Tobacco Use Types [...] have you been in contact with [facility] to assess someone who [...]
--- OUTSIDE RECORDS SUMMARY | 2019-10-28 09:53 | XMS REPORT | Encounter Summary ---
Author Author [facility] Organization [facility] Address Unknown Phone Unavailable Care Team Providers Care Regulatory Affairs Director Name Role Phone Erum Foreman MD PCP Erum Foreman MD 100 Reason for Visit * Reason Comments Medication Refill Encounter Details Care Team Description Date Type Department Todd Sauer MD [address] [facility] [place] [address] Medication Refill 06/11/2019 Refill The [facility] [address] [place] [address] Social History Date Tobacco Use Types Packs/Day [...]
--- OUTSIDE RECORDS SUMMARY | 2019-10-28 09:53 | XMS REPORT | Encounter Summary ---
Author Author [facility] Organization [facility] Address Unknown Phone Unavailable Care Team Providers Care Research And Development Director Name Role Phone Erum Foreman MD PCP Erum Foreman MD 100 Encounter Details Care Team Description Date Type Department 09/04/2019 Travel Social History Date Tobacco Use Types [...]
--- OUTSIDE RECORDS SUMMARY | 2019-10-28 09:53 | XMS REPORT | Encounter Summary ---
Author Author [facility] Organization [facility] Address Unknown Phone Unavailable Care Team Providers Care Medical Secretary Receptionist Name Role Phone Erum Foreman MD PCP Erum Foreman MD 100 Reason for Visit * Reason Comments Erroneous encounter-disregard Encounter Details Care Team Description Date Type Department Heather Turk Erroneous encounter-disregard 07/01/2019 Documentation The [address] [place] [address] Social History Date Tobacco Use Types Packs/Day [...] have you been in contact with [facility] to assess someone who was [...]
--- OUTSIDE RECORDS SUMMARY | 2019-10-28 09:53 | XMS REPORT | Encounter Summary ---
Author Author [facility] Organization [facility] Address Unknown Phone Unavailable Care Team Providers Care House Supervisor Name Role Phone Erum Foreman MD PCP Erum Foreman MD 100 Reason for Visit * Reason Comments Follow Up Encounter Details Care Team Description Date Type Department Belén Garg MD [address] [facility] [address] [place] [address] Anoxic brain injury (HCC) (Primary Dx); Memory impairment; Impaired instrumental activities of daily living (IADL) 09/04/2019 Office Visit [facility] [address] [place] [address] Social History Date Tobacco Use [...] Signs Reading Time Taken Comments Vital Sign 108/74 09/04/2019 11:26 AM CDT Blood Pressure 62 09/04/2019 11:26 AM CDT Pulse - - Temperature - - Respiratory Rate - - Oxygen Saturation - - Inhaled Oxygen Concentration - - Weight - - Height - - Body Mass Index documented in this encounter [...] this encounter Patient Instructions * Patient Instructions* Ewelina Jenkins - 09/04/2019 12:00 PM CDT FallPrevention Falls often occur due to slipping, tripping or losing your balance. Millions of people fall every year and injure themselves.Here are ways to reduce your risk of falling again. Think about your fall, was there anything that caused your fall that can be f ixed, removed, or replaced? Make your home safe by keeping walkways clear of objects you may trip over, s uch as electric cords. Use non-slip pads under rugs. Don't use area rugs or small throw rugs. Use non-slip mats in bathtubs and showers. Install handrails and lights on staircases. The handrails should be on both s ides of the stairs. Don't walk in poorly lit areas. Don't stand on chairs or wobbly ladders. Use caution when reaching overhead or looking upward.This position can caus e a loss of balance. Be sure your shoes fit properly, have non-slip bottoms and are in good condit ion. Wear shoes both inside and out. Don't go barefoot or wear slippers. Be cautious when going up and down stairs, curbs, and when walking on uneven sidewalks. If your balance is poor, consider using a cane or walker. If your fall was related to alcohol use, stop or limit alcohol intake. If your fall was related to use of sleeping medicines, talk to your healthcar e provider about this.You may need to reduce your dosage at bedtime if you jesusita ezekiel during the night to go to the bathroom. To reduce the need for nighttime bathroom trips: ? Don't drink fluids for several hours before going to bed ? Empty your bladder before going to bed ? Men can keep a urinal at the bedside Stay as active as you can. Balance, flexibility, strength, and endurance all come from exercise. They all play a role in preventing falls. Ask your healthcar e provider which types of activity are right for you. Get your vision checked on a regular basis. If you have pets, know where they are before you stand up or walk so you don' t trip over them. Use night lights. Go over all your medicines with a pharmacist or other healthcare provider to see if any of them could make you more likely to fall. [employer] last reviewed this educational content on 06/18/201719998851-9586 [employer]. [address] [place] [address] [phone] 7. All rights reserved. This information is not intended as a substitute for pro fessional medical care. Always follow your healthcare professional's instruction s. documented in this encounter Progress Notes * Belén Garg MD - 09/04/2019 12:00 PM CDT Established Clinic Visit Brain Injury Medicine Physical Medicine & Rehabilitation [facility] Date of Service: 09/04/2019 Chief Complaint Patient presents with Follow Up HPI: Je Costa is a 34 y.o. male who presents to clinic today in [facility] for residual functional deficits after anoxic brain injury after cardiac arrest. He is accompanied by His Father who assists with the history. He compl eted a course of IRF from 05/03-05/25/2017 and was discharged home with his father at a supervision level. Plan at Last Appointment: -continue compensatory memory strategies -Patient and family interested in anything else they could try to improve memory . We discussed a trial of donepezil to see if it improves memory; they are in f avor of this. Will also keep patient informed of any research opportunities for patients with anoxic brain injury -patient's father to ask cardiology if they have any objections to donepezil -if no objection from cardiology, start donepezil 5 mg nightly -patient advised that if he didn't see any benefit after several weeks of takin g the medication he could discontinue, re-fills provided electronically and drug information is in the AVS -agree with gradually improving independence with IADLs including some reduction in caregiver hours if patient/ family feel safe with this plan -encouraged to continue participating in regular psychotherapy (currently monthl y) -encouraged to continue SSRI at this time and if he so choose to he can discuss a trial off the medication with PCP who currently prescribes the medication -continue to follow with cardiology as directed INTERVAL HISTORY: He and his father report that overall everything is stable. He is working on a return to independent living plan with his home-based therapist. He is continui ng to follow with cardiology with no major recent updates. He is taking Aricept without side effect. He and his father think this may have helped with his mem ory a little bit. His father reports that he has about 20 hours/week of communi -based therapy services which will be focused on return to independent living and community activities. They have no other concerns or complaints at this [facility]. Current Therapies: He is now established with a brain injury waiver. He is getting community-based services with a primary goal of return to independent community living. He has 20 hours/week of therapy focusing on cognitive activities and instrumental acti vities of daily living. Social History/Current Functional Status: Living Situation: lives with father who provides supervision, caregivers during the day when father at work ADLs: independent IADLs: Continues to require assistance Mobility: independent without an assistive device Review of Systems: Endorses: memory impairment Denies: chest pain, shortness of breath, nausea, vomiting, change in bowel/ blad keny habits, seizures, recent falls, cough, fever Medical History: Diagnosis Date Atrial fibrillation (HCC) 06/05/2011 Chronic anticoagulation 10/28/2013 Chronic systolic heart failure (HCC) 03/02/2018 GERD (gastroesophageal reflux disease) Heart attack (HCC) Hypertension Permanent atrial fibrillation (HCC) 06/05/2011-2011 Multiple runs of AF, up to a few hours duration by 45hr holter. 014 - ECHO: LVEF ~ 25%. LA size = 3.7 cm. Four chamber dilation with severe c ardiomyopathy. LA dilation with no clot / thrombus, Severe TVR, mild MVR. Est imated PAP ~ 35mmHg. 09/21/2013 - Unsuccessful DCCV to maintain NSR. ([facility]ia [facility]) 11/13/2013 - CHIQUIS + DCCV: Cardioversion to restore NSR . Psychiatric illness short term memory loss Ventricular tachycardia (paroxysmal) (HCC) 06/05/2011 Surgical History: Procedure Laterality Date HX PACEMAKER PLACEMENT Left 03/2017 TRACHEOSTOMY N/A 04/07/2017 Performed by José Miguel Montana MD at [facility] OR INSERTION GASTROSTOMY TUBE N/A 04/13/2017 Performed by Clay Jones MD at [facility] INSERTION LEAD - SINGLE CHAMBER Left 04/18/2017 Performed by Todd Sauer MD at [facility] EP LAB MAZE PROCEDURE N/A 09/29/2017 Performed by Boo Singh MD at [facility] CLOSURE ATRIAL APPENDAGE, THORACOSCOPY N/A 09/29/2017 Performed by Boo Singh MD at [facility] INTRACARDIAC CATHETER ABLATION WITH COMPREHENSIVE ELECTROPHYSIOLOGIC EVALUAT ION - ATRIAL FIBRILLATION N/A 11/01/2017 Performed by Todd Sauer MD at [facility] EP [facility] TRANSESOPHAGEAL ECHOCARDIOGRAM DURING INTERVENTION N/A 11/01/2017 Performed by Cath, Physician at [facility] EP LAB INSERTION/ REPLACEMENT IMPLANTABLE DEFIBRILLATOR SYSTEM AND RIGHT ATRIAL KIMBERLY D (UPGRADE TO DUAL ICD FROM VVI ICD) Left 03/02/2018 Performed by Anton Figueroa MD at [facility] EP LAB FLUOROSCOPY - CARDIAC 03/02/2018 Performed by Anton Figueroa MD at [facility] EP LAB Injection Venography Extremity 03/02/2018 Performed by Anton Figueroa MD at [facility] EP LAB Allergies Allergen Reactions Pcn [Penicillins] RASH Medications: Current Outpatient Medications on File Prior to Visit Medication Sig Dispense Refill apixaban (ELIQUIS) 5 mg tablet Take 1 tablet by mouth twice daily. 60 tablet 11 ergocalciferol (vitamin D2) (VITAMIN D PO) Take by mouth. magnesium oxide (MAG-OX) 400 mg tablet Take 1 tablet by mouth twice daily. 1 80 tablet 3 metoprolol XL (TOPROL XL) 50 mg extended release tablet TAKE ONE TABLET BY M OUTH DAILY 90 tablet 3 sacubitril/valsartan (ENTRESTO) 24/26 mg tablet Take one tablet by mouth twi ce daily. 180 tablet 3 sertraline (ZOLOFT) 50 mg tablet TAKE ONE TABLET BY MOUTH DAILY 30 tablet 0 spironolactone (ALDACTONE) 25 mg tablet Take one tablet by mouth daily. Take with food. Indications: fluid in the lungs due to chronic heart failure 90 tab let 3 No current facility-administered medications on file prior to visit. PHYSICAL EXAM: Vitals: 09/04/19 1126 BP: 108/74 BP Source: Arm, Right Upper Patient Position: Sitting Pulse: 62 PainSc: Zero GEN: alert and conversant, no acute distress, accompanied by father HEAD: normocephalic MOUTH: mucous membranes moist NECK: full AROM CV: limbs warm and well perfused RESP: respirations easy and regular, no respiratory distress ABD: non-distended PSYCH: mood and affect congruent, in generally pleasant spirits, makes appropria te eye contact NEURO: Mental Status: alert Orientation: oriented to year but not oriented to month or date, did better with cues Cognition: normal processing speed for casual conversation; some memory impairme nt noted conversationally Speech: fluent and clear without evidence of aphasia or dysarthria Motor: full strength in proximal and distal muscle groups in bilateral upper and lower limbs Tone: no increased tone appreciated Coordination: no pronator drift, finger to nose intact without dysmetria or atax ia GAIT: step through gait pattern with symmetric arm swing and bilateral heel stri ke, no loss of balance ASSESSMENT: Je Costa is a 34 y.o. male s/p anoxic brain injury after cardi ac arrest in 03/2017 with residual functional impairments as noted below. His f unctional status is essentially stable since when I saw him last. His current f unctional goals are focused on return to independent living and greater independ ence with IADLs 1. Anoxic brain injury (HCC) 2. Memory impairment 3. Impaired instrumental activities of daily living (IADL) PLAN: -continue compensatory memory strategies -continue home based therapy services via [facility] with a focus on cognitive remediation, progression to independent living, and IADLs -continue supervision assist from family, attendants; wean as tolerated -continue Aricept 5 mg QHS, prescription sent electronically for one year supply -no changes made to other medications as managed by other providers -agree with exercise program within parameter set out by cardiology -continue to follow with PCP and cardiology *Follow-up in this clinic in 12 months. Belén Garg M.D. 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
--- OUTSIDE RECORDS SUMMARY | 2019-10-28 09:53 | XMS REPORT | Encounter Summary ---
Author Author [facility] Organization [facility] Address Unknown Phone Unavailable Care Team Providers Care Senior Ui Web Developer Name Role Phone Erum Foreman MD PCP Erum Foreman MD 100 Reason for Visit * Reason Comments Physical Encounter Details Care Team Description Date Type Department Belén Garg MD [address] [facility] [address] [place], [place] [id number] Erum Foreman MD [address] [facility] [address] [place], [place] [id number] Preventative health care (Primary Dx); Encounter for attention to tracheostomy (HCC); Presence of heart assist device (HCC); Other complications of gastrostomy (HCC); PAF (paroxysmal atrial fibrillation) (HCC); NICM (nonischemic cardiomyopathy) (HCC); REMINGTON on CPAP; Cognitive impairment; Chronic systolic heart failure (HCC); Need for hepatitis C screening test; Memory impairment; Chronic anticoagulation; Vitamin D deficiency 09/04/2019 Office Visit Internal Medicine [address] [place] [address] Social History Date Tobacco Use [...] Signs Reading Time Taken Comments Vital Sign 117/74 09/04/2019 2:41 PM CDT Blood Pressure 69 09/04/2019 2:41 PM CDT Pulse 37.3 C (99.1 F) 09/04/2019 2:41 PM CDT Temperature 16 09/04/2019 2:41 PM CDT Respiratory Rate - - Oxygen Saturation - - Inhaled Oxygen Concentration 97.5 kg (215 lb) 09/04/2019 2:41 PM CDT Weight 162.4 cm (5' 3.94") 09/04/2019 2:41 PM CDT Height 36.98 09/04/2019 2:41 PM CDT Body Mass Index documented in [...] this encounter Patient Instructions * Patient Instructions* Erum Foreman MD - 09/04/2019 2:40 PM CDT Routine Clinic Information: Please don't hesitate to call if you have any problems or questions. Nathan can be reached at [phone]. You may also message us in [employer] For refills on medications, please have your pharmacy fax a refill authorization request form to our office at Fax) [phone]. Please allow at least 3 business days for refill requests. For urgent issues after business hours/weekends/holidays call [phone] and marielos ellis for the outpatient internal medicine physician to be paged . We offer same day appointments for your acute health concerns. These appointment s are on a first come, first serve basis. Please call [phone] if you would like to make an appointment. If I am not a vailable, you can see any of my partners or try to see me the next day (call at 8am). See you in 12 months Orders Placed This Encounter LIPID PROFILE 25-OH VITAMIN D (D2 + D3) CBC AND DIFF COMPREHENSIVE METABOLIC PANEL HEPATITIS C ANTIBODY W REFLEX HCV PCR QUANT TSH WITH FREE T4 REFLEX sertraline (ZOLOFT) 50 mg tablet Take care, & Nathan documented in this encounter Progress Notes * Erum Foreman MD - 09/04/2019 2:40 PM CDT Date of Service: 09/04/2019 Subjective: Je Costa is a 34 y.o. male. History of Present Illness Mr. Costa is a pleasant, 34-year-old white male with a significant past medical history of longstanding persistent AFib/ permanent atrial fibrillation who had m ultiple episodes of rapid ventricular rates with tachycardia-mediated cardiomyop athy and eventually had an episode of [id number] cardiac arrest and was res uscitated and subsequent anoxic brain injury. He is currently on the brain waiv er. He recovered significantly and is doing extremely well except for mild cogn itive impairment with his memory being not the best. Cardiology did a single-ch waylon ICD which is significantly improved LV ejection fraction about 50%. He do es have tachycardia mediated cardiomyopathyand is followed by a cardiology. He was last seen by me in July 2018 has had no hospitalizations and has been doing r eally well. His medications did not change very much and is requesting for refi ll of Zoloft. Blood work has been ordered to be done locally as it needs to be done fasting. s/p underwent endocardial ablation and pulmonary vein isolation by Dr. Sauer he is doing extremely well on Entresto and Toprol-XL ,Eliquis. Denied having any problems he came with his father. He is from [facility] in the drive is a bout 2 hours Medical History: Diagnosis Date Atrial fibrillation (HCC) [...] - Unsuccessful DCCV to maintain NSR. ([facility]) 11/13/2013 - CHIQUIS + DCCV: Cardioversion to restore NSR . Psychiatric illness short term memory loss Ventricular tachycardia (paroxysmal) (HCC) 06/05/2011 Surgical History: Procedure Laterality Date HX PACEMAKER PLACEMENT Left 03/2017 TRACHEOSTOMY N/A 04/07/2017 Performed by José Miguel Montana MD at [facility] INSERTION GASTROSTOMY TUBE N/A 04/13/2017 Performed by Clay Jones MD at [facility] ENDO INSERTION LEAD - SINGLE CHAMBER Left 04/18/2017 Performed by Todd Sauer MD at [facility] EP LAB MAZE PROCEDURE N/A 09/29/2017 Performed by Boo Singh MD at [facility] CVTN CLOSURE ATRIAL APPENDAGE, THORACOSCOPY N/A 09/29/2017 Performed by Boo Singh MD at [address] INTRACARDIAC CATHETER ABLATION WITH COMPREHENSIVE ELECTROPHYSIOLOGIC EVALUAT ION - ATRIAL FIBRILLATION N/A 11/01/2017 Performed by Todd Sauer MD at [facility] EP LAB TRANSESOPHAGEAL ECHOCARDIOGRAM DURING INTERVENTION N/A 11/01/2017 Performed by Cath, Physician at [facility] EP LAB INSERTION/ REPLACEMENT IMPLANTABLE DEFIBRILLATOR SYSTEM AND RIGHT ATRIAL KIMBERLY D (UPGRADE TO DUAL ICD FROM VVI ICD) Left 03/02/2018 Performed by Anton Figueroa MD at [facility] EP LAB FLUOROSCOPY - CARDIAC 03/02/2018 Performed by Anton Figueroa MD at [facility] EP LAB Injection Venography Extremity 03/02/2018 Performed by Anton Figueroa MD at [facility] EP LAB Social History Marital status: Single Spouse name: N/A Number of children: N/A Years of education: N/A Occupational History . Working on disability. Social History Main Topics Smoking status: Never Smoker Smokeless tobacco: Never Used Alcohol use No Drug use: No Sexual activity: Not on file Family History Problem Relation Age of Onset Unknown to Patient Mother Hypertension Father Cancer Paternal Aunt Lung Diabetes Paternal Uncle Hypertension Paternal Grandmother Cancer Paternal Grandmother Colon Diabetes Paternal Grandmother Cancer Paternal Grandfather Colon Diabetes Paternal Grandfather Review of Systems As per history of present illness otherwise 10 point review systems is negative including GI, , cardiac, pulmonary, constitutional. Patient was pleasant enou gh but had to get information from father because of the lapses in the memory. Has been compliant with all of his medications. Objective: apixaban (ELIQUIS) 5 mg tablet Take 1 tablet by mouth twice daily. donepeziL (ARICEPT) 5 mg tablet Take one tablet by mouth at bedtime daily. ergocalciferol (vitamin D2) (VITAMIN D PO) Take by mouth. magnesium oxide (MAG-OX) 400 mg tablet Take 1 tablet by mouth twice daily. metoprolol XL (TOPROL XL) 50 mg extended release tablet TAKE ONE TABLET BY M OUTH DAILY sacubitril/valsartan (ENTRESTO) 24/26 mg tablet Take one tablet by mouth twi ce daily. sertraline (ZOLOFT) 50 mg tablet Take one tablet by mouth daily. spironolactone (ALDACTONE) 25 mg tablet Take one tablet by mouth daily. Take with food. Indications: fluid in the lungs due to chronic heart failure Vitals: 09/04/19 1441 BP: 117/74 BP Source: Arm, Left Upper Patient Position: Sitting Pulse: 69 Resp: 16 Temp: 37.3 C (99.1 F) TempSrc: Oral Weight: 97.5 kg (215 lb) Height: 162.4 cm (63.94") PainSc: Zero Body mass index is 36.98 kg/m. Physical Exam Awake alert oriented pleasant gentleman. HEENT: Moist mucous membranes Lungs: Clear to auscultation. Heart: Regular rate and rhythm. Abdomen: Soft, nontender nondistended. Lower extremities no edema. 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 Psych: Mood appropriate. Skin- Moist and intact Assessment and Plan: Cognitive impairment secondary to anoxic brain injury is currently on Aricept an d is working with a therapist who is going to enroll him in school for obtaining vocational courses. Permanent atrial fibrillation with tachycardia induced cardiomyopathy status pos t ICD and is on anticoagulation with Eliquis management per cardiology. 09/29/17 Dr. Singh--Radiofrequency Maze procedure to posterior wall left atrium by perica rdial window. Ligation of left atrial appendage using 45 mm AtriClip & status post convergence procedure with thoracoscopic Maze and AtriClip placement, which was followed by endovascular [facility] pulmonary vein isolation by . Takes eliquis, metoprolol, entresto. Hypertension Management: Takes entresto, aldactone Medication adherent: most of the time Treatment goal: 140/90 Outside blood pressures being performed: Yes BP Readings from Last 3 Encounters: 09/04/19 117/74 09/04/19 108/74 04/17/19 112/76 He denies significant light-headedness. Imp: Hypertension controlled Plan: Discussed hypertension and reviewed goals. Are barriers to achieving goals present? No Medication education provided. Patient voiced understanding? Yes Patient able to self-manage and ready to comply? Yes Educational resources identified? Verbal Counseling Depression- On ZOLOFT of 50 mg and is working well for now and refills provided . Nonischemic cardiomyopathy with a moderately depressed left ventricular ejection fraction of 35% noted on the CHIQUIS prior to his ablation on November 01, 2017. Anoxic brain injury working with speech therapy. Health Maintainence Screening labs ordered Problem Encounter for Attention to Tracheostomy (Hcc) Presence of Heart Assist Device (Hcc) Other Complications of Gastrostomy (Hcc) Patient Instructions Routine Clinic Information: Please don't hesitate to call if you have any problems or questions. [facility] can be reached at [phone]. You may also message us in [employer] For refills on medications, please have your pharmacy fax a refill authorization request form to our office at Fax) [phone]. Please allow at least 3 business days for refill requests. For urgent issues after business hours/weekends/holidays call [phone] and marielos ellis for the outpatient internal medicine physician to be paged . We offer same day appointments for your acute health concerns. These appointment s are on a first come, first serve basis. Please call [phone] if you would like to make an appointment. If I am not a vailable, you can see any of my partners or try to see me the next day (call at 8am). See you in 12 months Orders Placed This Encounter LIPID PROFILE 25-OH VITAMIN D (D2 + D3) CBC AND DIFF COMPREHENSIVE METABOLIC PANEL HEPATITIS C ANTIBODY W REFLEX HCV PCR QUANT TSH WITH FREE T4 REFLEX sertraline (ZOLOFT) 50 mg tablet Take care, & Nathan documented in this encounter Plan of Treatment Order Schedule Name Type Priority Associated Diag noses Expected: 09/04/2019 (Approximate), Expi res: 09/04/2020 25-OH VITAMIN D (D2 + D3) Lab Routine Evelin min D deficiency Expected: 09/04/2019 (Approximate), Expi res: 09/04/2020 CBC AND DIFF Lab Routine REMINGTON on CPAP Expected: 09/04/2019 (Approximate), Expi res: 09/03/2020 HEPATITIS C ANTIBODY W Lab Routine Need fo r hepatitis C REFLEX HCV PCR QUANT screening test documented as of this encounter Results * TSH WITH FREE T4 REFLEX (09/14/2019) TSH 1.77 [facility]IN [facility] Specimen Blood - Blood Narrative Performed At This result has an attachment that is n ot available. Performing Organization Address City/[facility] [address] [place] [address], * COMPREHENSIVE METABOLIC PANEL (09/14/2019) Sodium 138 [...] MAIN LAB eGFR >60 [facility] French Anion Gap 12 [facility] Specimen Blood - Blood Narrative Performed At This result has an attachment that is n ot available. Performing Organization Address [facility] [address] [place] [address], * LIPID PROFILE (09/14/2019) Cholesterol 170 [facility] Triglycerides 155 [facility] HDL 36 [facility] LDL 131 [facility] VLDL 31 [facility] Non HDL [facility] Cholesterol Cholesterol/HDL [facility] Ratio Specimen Blood - Blood Narrative Performed At This result has an attachment that is n ot available. Performing Organization Address City/State/Zipcode Ph one Number [facility] [address] [place] [address], documented in this encounter Visit Diagnoses Diagnosis Encounter for attention to tracheostomy (HCC) Attention to tracheostomy Presence of heart assist device (HCC) Heart replaced by heart assist device Other complications of gastrostomy (HCC ) Preventative health care Routine general medical examination at a health care facility PAF (paroxysmal atrial fibrillation) (H CC) Atrial fibrillation NICM (nonischemic cardiomyopathy) (HCC) Other primary cardiomyopathies REMINGTON on CPAP Obstructive sleep apnea (adult) (pediat jordan) Cognitive impairment Unspecified persistent mental disorders due to conditions classified elsewhere Chronic systolic heart failure (HCC) Chronic systolic heart failure Need for hepatitis C screening test Special screening examination for other specified viral diseases Memory impairment Memory loss Chronic anticoagulation Long-term (current) use of anticoagulan ts Vitamin D deficiency Unspecified vitamin D deficiency documented in this encounter
--- OUTSIDE RECORDS SUMMARY | 2019-10-28 09:54 | XMS REPORT ---
Author Author Je AMADOR Organization [facility] Address [address] [place] [address] Care Team Providers Care Forensic Psychologist Name Role Phone KARI AMADOR Unavailable PROBLEMS Type Condition ICD9-CM Code EKG28-AR Code Onset Dates Condition S tatus SNOMED Code Problem Cardiomyopathy I42.9 Active 62737 001 Problem alf (current) use of anticoagulants Z79.01 Active 045210137 Problem Chronic atrial fibrillation I48.2 Ac tive 488144321 Problem History of AR (myocardial infarction) I25.2 Active 042462211 Problem Anoxic brain injury G93.1 Active 711083343 Problem Non morbid obesity E66.9 Active 4 62083448 Problem Non-ischemic cardiomyopathy I42.8 Ac tive 54068207 Problem History of cardiac arrest Z86.74 Acti ve 481224121 Problem Cardiac defibrillator in place Z95.810 Active 409177955 Problem Adjustment disorder with depressed mood F43.21 Active 03210589 ALLERGIES No Information ENCOUNTERS Encounter Location Date Diagnosis [facility] [address] [id number] [address] [place] [address] Jun, [id number] [place] [address] May, [facility] [address] [id number] [address] [place] [phone] May, Cardiomyopathy I42.9 and Non morbid obesity E66.9 [facility] [address] [id number] [address] [place] [address] Apr, Fatigue, unspecified type R5 3.83 ; alf (current) use of anticoagulants Z79.01 ; Cardiac defibrillator in place Z95.810 and Anoxic brain injury G93.1 [facility] [address] [id number] [address] [place] [address] Mar, Acute otitis externa of left ear, unspecified type H60.502 [facility] [address] [facility] [id number] [address] [place] [address] Jan, Dermoid cyst D36.9 and Encou nter for immunization Z23 [facility] [address] [id number] [address] [place] [address] Dec, [facility] [address] [facility] [id number] [address] [place] [address] Dec, [facility] [address] [facility] [id number] [address] [place] [phone] Dec, Bronchitis J40 [facility] [address] [facility] [id number] [address] [place] [address] Dec, [facility] [address] [place] [phone] Nov, Caries K02.9 [facility] [address] [id number] [place] [address] [phone] Sep, Caries K02.9 [facility] [address] [id number] [place] [address] [id number] Aug, Caries K02.9 [facility] [address] [id number] [address] [place] [address] [phone] July, Caries K02.9 [facility] [address] [id number] [place] [address] [phone] July, Dental examination Z01.20 [facility] [address] [id number] [address] [place] [address] [phone] July, Caries K02.9 [facility] [address] [id number] [address] [place] [phone] Jun, [facility] [address] [id number] [address] [place] [address] [id number] Jun, Caries K02.9 [facility] [address] [facility] [id number] [address] [place] [phone] Jun, Chronic atrial fibrillation I48.2 ; alf (current) use of anticoagulants Z79.01 ; Cardiomyopathy I42.9 and Cardiac defibrillator in place Z95.810 [facility] [address] [facility] [id number] [place] [address] [phone] May, Caries K02.9 [facility] [address] [facility] [id number] [place] [phone] Apr, History of AR (myocardial in farction) I25.2 and SOB (shortness of breath) R06.02 [facility] [address] [facility] [id number] [place] [phone] Apr, [facility] [address] [id number] [place] [phone] Apr, [facility] [address] [phone] Apr, Canker sore K12.0 [facility] [address] [id number] Apr, Dental examination Z01.20 [facility] [address] [id number] Mar, Caries K02.9 [facility] [address] [id number] [address] [place] [phone] Feb, Surgery follow-up Z09 [facility] [address] [id number] Feb, Caries K02.9 [facility] [address] [id number] Jan, Caries K02.9 [facility] [address] [id number] [address] [place] [address] Oct, Foreign body in subcutaneous tissue T14.8XXA [facility] [address] [id number] [address] [place] [phone] Sep, Chronic atrial fibrillation I48.2 ; Non-ischemic cardiomyopathy I42.8 ; Anoxic brain injury G93.1 and Adjustment disorder with depressed mood F43.21 [facility] [address] [id number] [address] [place] [phone] Aug, [facility] [address] [id number] [address] [place] [phone] July, [facility] [address] [id number] [address] [place] [phone] July, [facility] [address] [id number] [address] [place] [phone] Jun, Adjustment disorder with dep ressed mood F43.21 [facility] [address] [id number] [address] [place] [phone] Jun, [facility] [address] [id number] [address] [place] [phone] Jun, [facility] [address] [id number] [address] [place] [phone] May, [facility] [address] [id number] [address] [place] [phone] May, [facility] [address] [id number] [address] [place] [phone] May, [facility] [address] [id number] [address] [place] [phone] May, [facility] [address] [id number] [address] [place] [phone] May, History of cardiac arrest Z8 6.74 ; Cardiac defibrillator in place Z95.810 ; Chronic atrial fibrillation I48.2 and Current moderate episode of major depressive disorder without prior episode F32.1 [facility] [address] [id number] [address] [place] [phone] May, [facility] [address] [id number] [address] [place] [address] Mar, 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 Z79.01 [facility] [address] [id number] [address] [place] [phone] Mar, [facility] [address] [id number] [address] [place] [phone] Mar, alf (current) use of a nticoagulants Z79.01 [facility] [address] [id number] [address] [place] [phone] Feb, Afib I48.91 [address] [facility] [id number] [address] [place] [phone] Feb, alf (current) use of a nticoagulants Z79.01 [facility] [address] [facility] [id number] [address] [place] [phone] Jan, Other viral agents as the ca use of diseases classified elsewhere B97.89 ; Acute upper respiratory infection, unspecified J06.9 and Body aches R52 [address] [facility] [id number] [address] [place] [address] Jan, Afib I48.91 [address] [facility] [id number] [address] [place] [phone] Jan, Afib I48.91 and 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 (c urrent) use of anticoagulants Z79.01 [facility] [address] [id number] [address] [place] [phone] Dec, Afib I48.91 [address] [facility] [id number] [address] [place] [phone] 02 Dec, 2016 Chronic atrial fibrillation I48.2 [address] [address] [facility] [id number] [address] [place] [phone] Nov, Hypertension I10 [address] [address] [facility] [id number] [address] [place] [phone] Oct, Chronic atrial fibrillation I48.2 [place] [address] [id number] [address] [place] [id number] Oct, alf (current) use of a nticoagulants Z79.01 [facility] [address] [facility] [id number] [address] [place] [phone] Oct, Chronic atrial fibrillation I48.2 [address] [address] [facility] [id number] [address] [place] [address] Oct, Chronic atrial fibrillation I48.2 [address] [address] [facility] [id number] [address] [place] [phone] Sep, alf (current) use of a nticoagulants Z79.01 ; Hypertension I10 ; Cardiomyopathy I42.9 and Afib I48.91 [address] [address] [address] [facility] [id number] [address] [place] [address] Sep, alf (current) use of a nticoagulants Z79.01 ; Hypertension I10 ; Cardiomyopathy I42.9 and Afib I48.91 [address] [address] [id number] [address] [place] [phone] Aug, 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 Z79.01 [place] [address] [id number] [address] [place] [address] Aug, 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 Z79.01 [address] [address] [id number] [address] [place] [phone] Aug, 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 Z79.01 [address] [address] [facility] [id number] [address] [place] [phone] July, alf (current) use of a nticoagulants Z79.01 [address] [address] [facility] [id number] [address] [place] [phone] Jun, alf (current) use of a nticoagulants Z79.01 [facility] [address] [id number] [address] [place] [phone] Jun, 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 Z79.01 [facility] [address] [id number] [address] [place] [phone] May, Chronic atrial fibrillation I48.2 [address] [id number] [address] [place] [phone] May, [address] [id number] [address] [place] [address] May, 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 Z79.01 [address] [address] [facility] [id number] [address] [place] [phone] 10 May, 2016 alf (current) use of a nticoagulants Z79.01 [place] [address] [facility] [id number] [address] [place] [address] 10 May, 2016 Afib I48.91 ; Non-ischemic c ardiomyopathy I42.8 ; Hypotension, unspecified hypotension type I95.9 and Heart palpitations R00.2 [address] [address] [facility] [id number] [address] [place] [address] 16 Apr, 2016 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 Z79.01 [place] [address] [id number] [address] [place] [phone] Apr, 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 Z79.01 [place] [address] [facility] [id number] [address] [place] [address] Mar, 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 Z79.01 [place] [address] [facility] [id number] [address] [place] [address] Feb, 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 Z79.01 [place] [address] [facility] [id number] [address] [place] [address] Feb, alf (current) use of a nticoagulants Z79.01 [facility] [address] [facility] [id number] [address] [place] [address] Jan, 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 Z79.01 [address] [address] [facility] [id number] [address] [place] [address] Jan, 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 Z79.01 [address] [address] [facility] [id number] [address] [place] [address] Dec, alf (current) use of a nticoagulants Z79.01 [address] [address] [facility] [id number] [address] [place] [phone] Dec, 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 Z79.01 [facility] [address] [facility] [id number] [address] [place] [address] Oct, alf (current) use of a nticoagulants Z79.01 [address] [address] [facility] [id number] [address] [place] [address] Oct, alf (current) use of a nticoagulants Z79.01 [address] [address] [facility] [id number] [address] [place] [address] Oct, Afib I48.91 ; Cardiomyopathy I42.9 ; Palpitations R00.2 and Non- rheumatic tricuspid valve insufficiency I36.1 [facility] [address] [facility] [id number] [address] [place] [phone] Sep, Chronic atrial fibrillation I48.2 ; 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 (current) use of anticoagulants Z79.01 ; Cardiomyopathy I42.9 and Hypertension I10 [facility] [address] [facility] [id number] [address] [place] [phone] Aug, Allergic rhinitis, unspecifi ed allergic rhinitis type J30.9 [facility] [address] [id number] [address] [place] [phone] Aug, 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 Z79.01 [facility] [address] [id number] [address] [place] [address] Jun, 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 Z79.01 [place] [address] [id number] [address] [place] [address] Jun, 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 Z79.01 [address] [address] [id number] [address] [place] [phone] Jun, alf (current) use of a nticoagulants Z79.01 [place] [address] [facility] [id number] [address] [place] [address] Jun, [place] [address] [facility] [id number] [address] [place] [phone] May, Encounter for long-term (cur rent) use of anticoagulants V58.61 [place] [address] [facility] [id number] [address] [place] [address] May, Encounter for long-term (cur rent) use of anticoagulants V58.61 [place] [address] [facility] [id number] [address] [place] [address] May, Encounter for long-term (cur rent) use of anticoagulants V58.61 [address] [address] [id number] [address] [place] [address] Apr, Encounter for long-term (cur rent) use of anticoagulants V58.61 [place] [address] [facility] [id number] [address] [place] [address] Apr, alf (current) use of a nticoagulants Z79.01 [place] [address] [facility] [id number] [address] [place] [address] Apr, Afib I48.91 ; Hypertension I 10 ; Cardiomyopathy I42.9 and Palpitations R00.2 [place] [address] [place] [address] Mar, alf (current) use of a nticoagulants Z79.01 [place] [address] [place] [id number] [address] [place] [address] Mar, Encounter for long-term (cur rent) use of anticoagulants V58.61 [place] [address] [facility] [id number] [address] [place] [address] Mar, Encounter for long-term (cur rent) use of anticoagulants V58.61 [place] [address] [place] [id number] [address] [place] [address] Mar, 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 Z79.01 and Encounter for therapeutic drug level monitoring Z51.81 [place] [address] [place] [address] Feb, alf (current) use of a nticoagulants Z79.01 and Encounter for therapeutic drug level monitoring Z51.81 [place] [address] [place] [address] Feb, Encounter for long-term (cur rent) use of anticoagulants V58.61 [place] [address] [facility] [id number] [address] [place] [address] Feb, [place] [address] [facility] [id number] [address] [place] [address] Feb, Encounter for long-term (cur rent) use of anticoagulants V58.61 [place] [address] [facility] [id number] [address] [place] [address] Feb, Encounter for therapeutic dr ug level monitoring Z51.81 [place] [address] [facility] [id number] [address] [place] [address] Jan, [place] [address] [id number] [address] [place] [address] Dec, Encounter for long-term (cur rent) use of anticoagulants V58.61 and Atrial fibrillation 427.31 [place] [address] [id number] [address] [place] [address] Dec, Chest wall muscle strain S29 .011A [place] [address] [id number] [address] [place] [address] Nov, Encounter for long-term (cur rent) use of anticoagulants V58.61 and Atrial fibrillation 427.31 [place] [address] [id number] [address] [place] [address] Nov, Atrial fibrillation 427.31 [place] [address] [id number] [address] [place] [address] Nov, [place] [address] [id number] [address] [place] [address] Nov, Atrial fibrillation 427.31 [place] [address] [id number] [address] [place] [address] Nov, Atrial fibrillation 427.31 [place] [address] [id number] [address] [place] [address] Oct, Encounter for long-term (cur rent) use of anticoagulants V58.61 [place] [address] [id number] [address] [place] [address] Sep, Encounter for long-term (cur rent) use of anticoagulants V58.61 [place] [address] [id number] [address] [place] [address] Aug, Encounter for long-term (cur rent) use of anticoagulants V58.61 [place] [address] [id number] [address] [place] [address] July, [place] [address] [id number] [address] [place] [address] July, [facility] [address] [id number] [address] [place] [address], [place] [address] July, [facility] [address] [id number] [address] [place] [address], [place] [address] 14 Jun, 2014 [facility] [address] [id number] [address] [place] [address], [place] [address] Jun, [facility] [address] [id number] [address] [place] [address], [place] [address] May, [facility] [address] [id number] [address] [place] [address], [place] [address] May, [facility] [address] [id number] [address] [place] [address], [place] [address] May, [facility] [address] [id number] [address] [place] [address], [place] [address] 18 Apr, 2014 [facility] [address] [id number] [address] [place] [address], [place] [address] Apr, [facility] [address] [id number] [address] [place] [address], [place] [address] Apr, [facility] [address] [id number] [address] [place] [address], [place] [address] Apr, [facility] [address] [id number] [address] [place] [address], [place] [address] Apr, [facility] [address] [id number] [address] [place] [address], [place] [address] Apr, [facility] [address] [id number] [address] [place] [address], [place] [address] Apr, [facility] [address] [id number] [address] [place] [address], [place] [address] Mar, [facility] [address] [id number] [address] [place] [address], [place] [address] Mar, [facility] [address] [id number] [address] [place] [address], [place] [address] 14 Mar, 2014 [facility] [address] [id number] [address] [place] [address], [place] [address] 14 Mar, 2014 [facility] [address] [id number] [address] [place] [address], [place] [address] 13 Mar, 2014 [facility] [address] [id number] [address] [place] [address], [place] [address] Mar, [facility] [address] [id number] [address] [place] [address], [place] [address] Mar, [facility] [address] [id number] [address] [place] [address], [place] [address] Mar, [facility] [address] [id number] [address] [place] [address], [place] [address] Feb, [facility] [address] [id number] [address] [place] [address], [place] [address] Feb, [facility] [address] [id number] [address] [place] [address], [place] [address] Feb, [facility] [address] [id number] [address] [place] [address], [place] [address] Feb, [facility] [address] [id number] [address] [place] [address], [place] [address] Feb, [facility] [address] [id number] [address] [place] [address], [place] [address] Feb, [facility] [address] [id number] [address] [place] [address], [place] [address] Jan, [facility] [address] [id number] [address] [place] [address], [place] [address] Jan, [facility] [address] [id number] [address] [place] [address], [place] [address] Jan, [facility] [address] [id number] [address] [place] [address], [place] [address] Jan, [facility] [address] [id number] [address] [place] [address], [place] [address] Jan, [facility] [address] [id number] [address] [place] [address], [place] [address] Jan, [facility] [address] [id number] [address] [place] [address], [place] [address] Dec, [facility] [address] [id number] [address] [place] [address], [place] [address] Dec, [facility] [address] [id number] [address] [place] [address], [place] [address] Dec, [facility] [address] [id number] [address] [place] [address], [place] [address] Dec, [facility] [address] [id number] [address] [place] [address], [place] [address] Nov, [facility] [address] [id number] [address] [place] [address], [place] [address] Nov, [facility] [address] [id number] [address] [place] [address], [place] [address] Oct, [facility] [address] [id number] [address] [place] [address], [place] [address] Oct, [facility] [address] [id number] [address] [place] [address] Oct, [facility] [address] [id number] [address] [place] [address] Oct, [facility] [address] [id number] [address] [place] [address], [place] [address] Oct, [facility] [address] [id number] [address] [place] [address], [place] [address] Oct, [facility] [address] [id number] [address] [place] [address], [place] [address] Sep, [facility] [address] [id number] [address] [place] [address] Sep, [facility] [address] [id number] [facility] [place] [address] Sep, [facility] [address] [id number] [address] [place] [address], [place] [address] Sep, [facility] [address] [id number] [address] [place] [address], [place] [address] Sep, [facility] [facility] [address] [id number] [address] [place] [address], [place] [address] Sep, [facility] [address] [id number] [address] [place] [address], [place] [address] Sep, [facility] [address] [id number] [address] [place] [address], [place] [address] Sep, [facility] [address] [id number] [address] [place] [address], [place] [address] Sep, [facility] [address] [id number] [address] [place] [address], [place] [address] Sep, [facility] [address] [id number] [address] [place] [address], [place] [address] Sep, [facility] [address] [id number] [address] [place] [address], [place] [address] Sep, [facility] [address] [id number] [address] [place] [address], [place] [address] Sep, [facility] [address] [id number] [address] [place] [address], [place] [address] Sep, [facility] [address] [id number] [address] [place] [address], [place] [address] Feb, [facility] [address] [id number] [address] [place] [address], [place] [address] Feb, [facility] [address] [id number] [address] [place] [address], [place] [address] July, [facility] [address] [facility] [id number] [address] [place] [id number] Apr, [facility] [address] [facility] [id number] [address] [place] [address] Apr, [facility] [address] [facility] [id number] [address] [place] [address] Apr, [facility] [address] [facility] [id number] [address] [place] [id number] Apr, IMMUNIZATIONS No Known Immunizations SOCIAL HISTORY Never Assessed REASON FOR VISIT PLAN OF CARE VITAL SIGNS MEDICATIONS Unknown [...] Intubation with ET tube and transferred to [facility] Trach placed 03/2017 due to A Fib resulting in anoxic brain injury and memory loss Medical History 03/02-03/03/18 heart surgery Surgical History Defibrillation placed 2017 Surgical History Trach/PEG Tube placed and removed [facility] a fter Intubation 2017 Surgical History heart surgery 2018 Surgical History heart surgery 03/02-03/03/18 Hospitalization History ICU for Afib 09/2013 Hospitalization History Admitted to Transferred to [facility] ICU/ Rehab 03/2017 Hospitalization History Coded, Defribrillated and ET tube placed for ventillation and transferred to [facility] 03/2017 Hospitalization History surgery 09/29/2017 Hospitalization History heart surgery 03/02-03/03/18
--- OUTSIDE RECORDS SUMMARY | 2019-10-28 09:54 | XMS REPORT ---
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 Z79.01 Active 461988397 Problem Chronic atrial fibrillation I48.2 Ac tive 283175818 Problem History of DE (myocardial infarction) I25.2 Active 213093974 Problem Anoxic brain injury G93.1 Active 090762384 Problem Non morbid obesity E66.9 Active 4 52774082 Problem Non-ischemic cardiomyopathy I42.8 Ac tive 18138712 Problem History of cardiac arrest Z86.74 Acti ve 255262266 Problem Cardiac defibrillator in place Z95.810 Active 503473131 Problem Adjustment disorder with depressed mood F43.21 Active 42907760 ALLERGIES Substance Reaction Event Type Date Status Penicillin V Potassium hives Drug Allergy Jun, Activ e ENCOUNTERS Encounter Location Date Diagnosis [place] [address] [id number] [address] [place] [phone] Aug, [facility] [address] [facility] [id number] [address] [place] [phone] Aug, Exercise counseling Z71.82 [facility] [address] [facility] [id number] [address] [place] [phone] Aug, Exercise counseling Z71.82 [place] [address] [facility] [id number] [address] [place] [phone] Aug, Exercise counseling Z71.82 [place] [address] [facility] [id number] [address] [place] [address] July, Exercise counseling Z71.82 [place] [address] [facility] [id number] [address] [place] [address] July, Exercise counseling Z71.82 [facility] [address] [id number] [address] [place] [phone] July, Exercise counseling Z71.82 [facility] [address] [facility] [id number] [address] [place] [phone] Jun, [address] 340B [id number] [place] [phone] May, [facility] [address] [facility] [id number] [address] [place] [address] May, Cardiomyopathy I42.9 and Non morbid obesity E66.9 [facility] [address] [facility] [id number] [address] [place] [address] Apr, Fatigue, unspecified type R5 3.83 ; FDC (current) use of anticoagulants Z79.01 ; Cardiac defibrillator in place Z95.810 and Anoxic brain injury G93.1 [facility] [address] [id number] [address] [place] [phone] Mar, Acute otitis externa of left ear, unspecified type H60.502 [facility] [address] [place] [id number] [address] [place] [phone] Jan, Dermoid cyst D36.9 and Encou nter for immunization Z23 [facility] [address] [facility] [id number] [address] [place] [phone] Dec, [facility] [address] [facility] [id number] [address] [place] [phone] Dec, [facility] [address] [facility] [id number] [address] [place] [phone] Dec, Bronchitis J40 [facility] [address] [facility] [id number] [address] [place] [phone] Dec, [facility] [address] [id number] [address] [place] [address] [id number] Nov, Caries K02.9 [facility] [address] [id number] [address] [place] [address] [id number] Sep, Caries K02.9 [facility] [address] [id number] [address] [place] [address] [id number] Aug, Caries K02.9 [facility] [address] [id number] [address] [place] [address] [id number] July, Caries K02.9 [facility] [address] [id number] [address] [place] [address] [id number] July, Dental examination Z01.20 [facility] [id number] [place] [address] [id number] July, Caries K02.9 [facility] [address] [id number] [address] [place] [phone] Jun, [facility] [address] [id number] [address] [place] [address] [id number] Jun, Caries K02.9 [facility] [address] [id number] [address] [place] [phone] Jun, Chronic atrial fibrillation I48.2 ; FDC (current) use of anticoagulants Z79.01 ; Cardiomyopathy I42.9 and Cardiac defibrillator in place Z95.810 [facility] [address] [id number] [address] [place] [address] [id number] May, Caries K02.9 [facility] [address] [id number] [address] [place] [phone] Apr, History of DE (myocardial in farction) I25.2 and SOB (shortness of breath) R06.02 [facility] [address] [id number] [address] [place] [phone] Apr, [facility] [address] [facility] [id number] [address] [place] [phone] Apr, [facility] [address] [facility] [id number] [address] [place] [phone] Apr, Canker sore K12.0 [facility] [address] [id number] [address] [place] [address] [id number] Apr, Dental examination Z01.20 [facility] [address] [id number] [address] [place] [address] [phone] Mar, Caries K02.9 [facility] [address] [id number] [address] [place] [phone] Feb, Surgery follow-up Z09 [facility] [address] [id number] [address] [place] [address] [id number] Feb, Caries K02.9 [facility] [address] [facility] [id number] [address] [place] [address] [id number] Jan, Caries K02.9 [facility] [address] [facility] [id number] [address] [place] [address] Oct, Foreign body in subcutaneous tissue T14.8XXA [facility] [address] [place] [id number] [address] [place] [phone] Sep, Chronic atrial fibrillation I48.2 ; Non-ischemic cardiomyopathy I42.8 ; Anoxic brain injury G93.1 and Adjustment disorder with depressed mood F43.21 [facility] [address] [facility] [id number] [address] [place] [phone] Aug, [facility] [address] [place] [id number] [address] [place] [phone] July, [facility] [address] [facility] [id number] [address] [place] [phone] July, [facility] [address] [place] [id number] [address] [place] [phone] Jun, Adjustment disorder with dep ressed mood F43.21 [facility] [address] [place] [id number] [address] [place] [phone] Jun, [facility] [address] [id number] [address] [place] [phone] Jun, [facility] [address] [id number] [address] [place] [phone] May, [facility] [address] [id number] [address] [place] [phone] May, [facility] [address] [id number] [address] [place] [phone] May, [facility] [address] [id number] [address] [place] [phone] May, [facility] [address] [id number] [address] [place] [phone] May, History of cardiac arrest Z8 6.74 ; Cardiac defibrillator in place Z95.810 ; Chronic atrial fibrillation I48.2 and Current moderate episode of major depressive disorder without prior episode F32.1 [facility] [address] [id number] [address] [place] [phone] May, [facility] [address] [id number] [address] [place] [phone] Mar, intermediate designer (current) use of a nticoagulants Z79.01 [facility] [address] [id number] [address] [place] [phone] Mar, [facility] [address] [id number] [address] [place] [phone] Mar, intermediate designer (current) use of a nticoagulants Z79.01 [facility] [address] [id number] [address] [place] [phone] Feb, Afib I48.91 [facility] [address] [id number] [address] [place] [phone] Feb, intermediate designer (current) use of a nticoagulants Z79.01 [facility] [address] [id number] [address] [place] [phone] Jan, Other viral agents as the ca use of diseases classified elsewhere B97.89 ; Acute upper respiratory infection, unspecified J06.9 and Body aches R52 [place] [address] [facility] [id number] [address] [place] [phone] Jan, Afib I48.91 [place] [address] [facility] [id number] [address] [place] [phone] Jan, Afib I48.91 and FDC (c urrent) use of anticoagulants Z79.01 [place] [address] [facility] [id number] [address] [place] [phone] Dec, Afib I48.91 [place] [address] [facility] [id number] [address] [place] [phone] Dec, Chronic atrial fibrillation I48.2 [place] [address] [facility] [id number] [address] [place] [phone] Nov, Hypertension I10 [place] [address] [facility] [id number] [address] [place] [phone] Oct, Chronic atrial fibrillation I48.2 [place] [address] [facility] [id number] [address] [place] [phone] Oct, intermediate designer (current) use of a nticoagulants Z79.01 [place] [address] [facility] [id number] [address] [place] [phone] Oct, Chronic atrial fibrillation I48.2 [place] [address] [facility] [id number] [address] [place] [phone] Oct, Chronic atrial fibrillation I48.2 [place] [address] [facility] [id number] [address] [place] [phone] Sep, intermediate designer (current) use of a nticoagulants Z79.01 ; Hypertension I10 ; Cardiomyopathy I42.9 and Afib I48.91 [place] [address] [facility] [id number] [address] [place] [address] Sep, intermediate designer (current) use of a nticoagulants Z79.01 ; Hypertension I10 ; Cardiomyopathy I42.9 and Afib I48.91 [facility] [address] [id number] [address] [place] [phone] Aug, intermediate designer (current) use of a nticoagulants Z79.01 [facility] [address] [id number] [address] [place] [phone] Aug, FDC (current) use of a nticoagulants Z79.01 [facility] [address] [id number] [address] [place] [phone] Aug, intermediate designer (current) use of a nticoagulants Z79.01 [place] [address] [id number] [address] [place] [address] July, intermediate designer (current) use of a nticoagulants Z79.01 [place] [address] [id number] [address] [place] [address] Jun, intermediate designer (current) use of a nticoagulants Z79.01 [place] [address] [id number] [address] [place] [phone] Jun, intermediate designer (current) use of a nticoagulants Z79.01 [place] [address] [id number] [address] [place] [phone] May, Chronic atrial fibrillation I48.2 [facility] [address] [id number] [address] [place] [address] May, [place] [address] [id number] [address] [place] [phone] 13 May, 2016 intermediate designer (current) use of a nticoagulants Z79.01 [place] [address] [id number] [address] [place] [phone] May, FDC (current) use of a nticoagulants Z79.01 [facility] [address] [id number] [address] [place] [phone] 10 May, 2016 Afib I48.91 ; Non-ischemic c ardiomyopathy I42.8 ; Hypotension, unspecified hypotension type I95.9 and Heart palpitations R00.2 [facility] [address] [id number] [address] [place] [phone] 16 Apr, 2016 FDC (current) use of a nticoagulants Z79.01 [facility] [address] [id number] [address] [place] [phone] Apr, intermediate designer (current) use of a nticoagulants Z79.01 [place] [address] [facility] [id number] [address] [place] [phone] Mar, intermediate designer (current) use of a nticoagulants Z79.01 [place] [address] [facility] [id number] [address] [place] [phone] Feb, intermediate designer (current) use of a nticoagulants Z79.01 [place] [address] [id number] [address] [place] [phone] Feb, intermediate designer (current) use of a nticoagulants Z79.01 [place] [address] [id number] [address] [place] [address] Jan, intermediate designer (current) use of a nticoagulants Z79.01 [place] [address] [id number] [address] [place] [phone] Jan, FDC (current) use of a nticoagulants Z79.01 [place] [address] [facility] [id number] [address] [place] [address] Dec, intermediate designer (current) use of a nticoagulants Z79.01 [place] [address] [id number] [address] [place] [address] Dec, FDC (current) use of a nticoagulants Z79.01 [facility] [address] [facility] [id number] [address] [place] [phone] Oct, FDC (current) use of a nticoagulants Z79.01 [facility] [address] [facility] [id number] [address] [place] [phone] Oct, FDC (current) use of a nticoagulants Z79.01 [facility] [address] [facility] [id number] [address] [place] [address] Oct, Afib I48.91 ; Cardiomyopathy I42.9 ; Palpitations R00.2 and Non- rheumatic tricuspid valve insufficiency I36.1 [place] [address] [facility] [id number] [address] [place] [address] Sep, Chronic atrial fibrillation I48.2 ; intermediate designer (current) use of anticoagulants Z79.01 ; Cardiomyopathy I42.9 and Hypertension I10 [facility] [address] [facility] [id number] [address] [place] [phone] Aug, Allergic rhinitis, unspecifi ed allergic rhinitis type J30.9 [facility] [address] [facility] [id number] [address] [place] [phone] Aug, intermediate designer (current) use of a nticoagulants Z79.01 [place] [address] [facility] [id number] [address] [place] [address] Jun, FDC (current) use of a nticoagulants Z79.01 [facility] [address] [facility] [id number] [address] [place] [address] Jun, FDC (current) use of a nticoagulants Z79.01 [facility] [address] [facility] [id number] [address] [place] [address] Jun, FDC (current) use of a nticoagulants Z79.01 [place] [address] [facility] [id number] [address] [place] [phone] Jun, [place] [address] [facility] [id number] [address] [place] [address] May, Encounter for long-term (cur rent) use of anticoagulants V58.61 [place] [address] [facility] [id number] [address] [place] [address] May, Encounter for long-term (cur rent) use of anticoagulants V58.61 [place] [address] [facility] [id number] [address] [place] [phone] May, Encounter for long-term (cur rent) use of anticoagulants V58.61 [place] [address] [facility] [id number] [address] [place] [address] Apr, Encounter for long-term (cur rent) use of anticoagulants V58.61 [place] [address] [place] [id number] [address] [place] [address] Apr, FDC (current) use of a nticoagulants Z79.01 [place] [address] [place] [id number] [address] [place] [phone] Apr, Afib I48.91 ; Hypertension I 10 ; Cardiomyopathy I42.9 and Palpitations R00.2 [place] [address] [place] [id number] [address] [place] [address] Mar, FDC (current) use of a nticoagulants Z79.01 [place] [address] [place] [id number] [address] [place] [address] Mar, Encounter for long-term (cur rent) use of anticoagulants V58.61 [place] [address] [facility] [id number] [address] [place] [address] Mar, Encounter for long-term (cur rent) use of anticoagulants V58.61 [place] [address] [facility] [id number] [address] [place] [address] Mar, intermediate designer (current) use of a nticoagulants Z79.01 and Encounter for therapeutic drug level monitoring Z51.81 [facility] [address] [id number] [address] [place] [phone] 24 Feb, 2015 FDC (current) use of a nticoagulants Z79.01 and Encounter for therapeutic drug level monitoring Z51.81 [facility] [address] [id number] [address] [place] [phone] Feb, Encounter for long-term (cur rent) use of anticoagulants V58.61 [place] [address] [id number] [address] [place] [address] Feb, [place] [address] [id number] [address] [place] [address] Feb, Encounter for long-term (cur rent) use of anticoagulants V58.61 [place] [address] [id number] [address] [place] [phone] Feb, Encounter for therapeutic dr ug level monitoring Z51.81 [place] [address] [id number] [address] [place] [address] Jan, [place] [address] [id number] [address] [place] [address] Dec, Encounter for long-term (cur rent) use of anticoagulants V58.61 and Atrial fibrillation 427.31 [place] [address] [id number] [address] [place] [address] Dec, Chest wall muscle strain S29 .011A [place] [address] [id number] [address] [place] [phone] Nov, Encounter for long-term (cur rent) use of anticoagulants V58.61 and Atrial fibrillation 427.31 [place] [address] [id number] [address] [place] [address] Nov, Atrial fibrillation 427.31 [place] [address] [id number] [address] [place] [id number] Nov, [place] [address] [id number] [address] [place] [id number] Nov, Atrial fibrillation 427.31 [facility] [address] [id number] [address] [place] [id number] 10 Nov, 2014 Atrial fibrillation 427.31 [facility] [address] [id number] [address] [place] [id number] Oct, Encounter for long-term (cur rent) use of anticoagulants V58.61 [facility] [address] [id number] [address] [place] [id number] Sep, Encounter for long-term (cur rent) use of anticoagulants V58.61 [facility] [address] [id number] [address] [place] [id number] Aug, Encounter for long-term (cur rent) use of anticoagulants V58.61 [facility] [address] [id number] [address] [place] [phone] July, [facility] [address] [id number] [address] [place] [id number] July, [facility] [address] [id number] [address] [place] [phone] July, [facility] [address] [id number] [address] [place] [id number] Jun, [facility] [address] [id number] [address] [place] [phone] Jun, [facility] [address] [id number] [address] [place] [id number] May, [facility] [address] [id number] [address] [place] [phone] May, [facility] [address] [id number] [address] [place] [id number] May, [facility] [address] [id number] [address] [place] [id number] Apr, [facility] [address] [id number] [address] [place] [address], [place] [address] Apr, [facility] [address] [id number] [address] [place] [address], [place] [address] Apr, [facility] [address] [id number] [address] [place] [address], [place] [phone] Apr, 2014 [facility] [address] [id number] [address] [place] [address], [place] [address] Apr, [facility] [address] [id number] [address] [place] [address], [place] [address] Apr, [facility] [address] [id number] [address] [place] [address], [place] [id number] Apr, [facility] [address] [id number] [address] [place] [address], [place] [address] Mar, [facility] [address] [id number] [address] [place] [address], [place] [address] Mar, [facility] [address] [id number] [address] [place] [address], [place] [address] Mar, [facility] [address] [id number] [address] [place] [address], [place] [address] Mar, [facility] [address] [id number] [address] [place] [address], [place] [address] Mar, [facility] [address] [id number] [address] [place] [address], [place] [address] Mar, [facility] [address] [id number] [address] [place] [address], [place] [address] Mar, [facility] [address] [id number] [address] [place] [address], [place] [address] Mar, [facility] [address] [id number] [address] [place] [address], [place] [address] Feb, [facility] [address] [id number] [address] [place] [address] [place] [address] Feb, [facility] [address] [id number] [address] [place] [address], [place] [address] Feb, [facility] [address] [id number] [address] [place] [address], [place] [address] Feb, [facility] [address] [id number] [address] [place] [address], [place] [address] Feb, [facility] [address] [id number] [address] [place] [address], [place] [address] Feb, [facility] [address] [id number] [address] [place] [address], [place] [address] Jan, [facility] [address] [id number] [address] [place] [address], [place] [address] Jan, [facility] [address] [id number] [address] [place] [address], [place] [address] Jan, [facility] [address] [id number] [address] [place] [address], [place] [address] Jan, [facility] [address] [id number] [address] [place] [address], [place] [address] Jan, [facility] [address] [id number] [address] [place] [address], [place] [address] Jan, [facility] [address] [id number] [address] [place] [address], [place] [address] Dec, [facility] [address] [id number] [address] [place] [address] Dec, [facility] [address] [id number] [address] [place] [address], [place] [address] Dec, [facility] [address] [id number] [address] [place] [address], [place] [address] Dec, [facility] [address] [id number] [address] [place] [address], [place] [address] Nov, [facility] [address] [id number] [address] [place] [address] Nov, [facility] [address] [id number] [facility] [place] [address] Oct, [facility] [address] [id number] [address] [place] [address], [place] [address] Oct, [facility] [address] [id number] [address] [place] [address], [place] [address] Oct, [facility] [address] [id number] [address] [place] [address], [place] [address] Oct, [facility] [address] [id number] [address] [place] [address], [place] [address] Oct, [facility] [address] [id number] [address] [place] [address], [place] [address] Oct, [facility] [address] [id number] [address] [place] [address], [place] [address] Sep, [facility] [address] [id number] [address] [place] [address], [place] [address] Sep, [facility] [address] [id number] [address] [place] [address], [place] [address] Sep, [facility] [address] [id number] [address] [place] [address], [place] [address] Sep, [facility] [address] [id number] [address] [place] [address], [place] [address] Sep, [facility] [address] [id number] [address] [place] [address], [place] [address] Sep, [facility] [address] [id number] [address] [place] [address], [place] [address] Sep, [facility] [address] [id number] [address] [place] [address], [place] [address] Sep, [facility] [address] [id number] [address] [place] [address], [place] [address] Sep, [facility] [address] [id number] [address] [place] [address] Sep, [facility] [address] [id number] [address] [place] [address] Sep, [facility] [address] [id number] [address] [place] [address] Sep, [facility] [address] [id number] [address] [place] [address] Sep, [facility] [address] [id number] [address] [place] [address] Sep, [facility] [address] [id number] [address] [place] [address] Feb, [facility] [address] [id number] [address] [place] [address] Feb, [facility] [address] [id number] [address] [place] [address] July, [facility] [address] [id number] [address] [place] [address] Apr, [facility] [address] [id number] [address] [place] [address] Apr, [facility] [address] [id number] [address] [place] [address] Apr, [facility] [address] [id number] [address] [place] [address] Apr, IMMUNIZATIONS No Known Immunizations SOCIAL HISTORY Never Assessed REASON FOR VISIT New provider visit, B/P med f/u, Would like to start on speech therapy, Would velma mcneil to start on occupational therapy. derek roberts PLAN OF CARE VITAL SIGNS Height 64 in 2018-06-18 Weight 222.2 lbs 2018-06-18 Temperature 97.7 degrees Fahrenheit 2018-06-18 Heart Rate 71 bpm 2018-06-18 Respiratory Rate 20 2018-06-18 BMI 38.14 kg/m2 2018-06-18 Blood pressure systolic 122 mmHg 2018-06-18 Blood pressure diastolic 78 mmHg 2018-06-18 MEDICATIONS Medication Instructions Dosage Frequency Start Date End Date Duration S sherman Dunne S 8.6-50 MG Orally 2 times a day 2 tabs 12h Active Protonix 40 MG Orally 2 times a day 1 tablet 12h Active Hydrochlorothiazide 12.5 MG Orally Once a day 1 tablet in the morni ng 24h Apr, 30 day(s) Active Magnesium Oxide 400 mg Orally twice a day 1 tablet as needed 12h Active Zoloft 50 MG Orally Once a day 1 tablet 24h Jun, Active Stool Softener 100 MG Orally Once a day 1 tablet as needed 24h Active Apixaban 5 mg Orally 2 times a day 12h Active Entresto 24-26 MG Orally 2 times a day 1 tablet 12h Active Metoprolol Tartrate 50 MG Orally Once a day 1 [...] Intubation with ET tube and transferred to [facility] Trach placed 03/2017 due to A Fib resulting in anoxic brain injury and memory loss Medical History 03/02-03/03/18 heart surgery Surgical History Defibrillation placed 2017 Surgical History Trach/PEG Tube placed and removed [facility] a fter Intubation 2017 Surgical History heart surgery 2017 Surgical History heart surgery 03/02-03/03/18 Hospitalization History ICU for Afib 09/2013 Hospitalization History Admitted to Transferred [facility] ICU[facility] 03/2017 Hospitalization History Coded, Defribrillated and ET tube placed for ventillation and transferred to [facility] 03/2017 Hospitalization History surgery 09/29/2017 Hospitalization History heart surgery 03/02-03/03/18
--- OUTSIDE RECORDS SUMMARY | 2019-10-28 09:54 | XMS REPORT ---
Author Author Je Farrell Doctor Organization [facility] Address Unknown Phone Unavailable Care Team Providers Care Collator Hand Name Role Phone Migration, Doctor Unavailable Unavailable PROBLEMS Type Condition ICD9-CM Code [id number] Code Onset Dates Condition S tatus SNOMED Code Problem Cardiomyopathy I42.9 Active 08347 001 Problem [facility] (current) use of anticoagulants Z79.01 Active 066305010 Problem Chronic atrial fibrillation I48.2 Ac tive 928228338 Problem History of DC (myocardial infarction) I25.2 Active 551545511 Problem Anoxic brain injury G93.1 Active 253028612 Problem Non morbid obesity E66.9 Active 4 94365420 Problem Non-ischemic cardiomyopathy I42.8 Ac tive 89743427 Problem History of cardiac arrest Z86.74 Acti ve 096977884 Problem Cardiac defibrillator in place Z95.810 Active 440730863 Problem Adjustment disorder with depressed mood F43.21 Active 13308720 ALLERGIES No Information ENCOUNTERS Encounter Location Date Diagnosis [place] [address] [facility] [id number] [address] [place] [address] 29 Aug, 2019 [place] [address] [facility] [id number] [address] [place] [address] 22 Aug, 2019 Exercise counseling Z71.82 [place] [address] [facility] [id number] [address] [place] [address] 08 Aug, 2019 Exercise counseling Z71.82 [place] [address] [facility] [id number] [address] [place] [address] Aug, Exercise counseling Z71.82 [place] [address] [facility] [id number] [address] [place] [address] July, Exercise counseling Z71.82 [place] [address] [facility] [id number] [address] [place] [address] July, Exercise counseling Z71.82 [place] [address] [facility] [id number] [address] [place] [address] July, Exercise counseling Z71.82 [facility] [address] [facility] [id number] [address] [place] [address] Jun, [facility] [address] [id number] [address] May, [facility] [address] [facility] [id number] [address] [place] [address] May, Cardiomyopathy I42.9 and Non morbid obesity E66.9 [facility] [address] [facility] [id number] [address] [place] [address] Apr, Fatigue, unspecified type R5 3.83 ; 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 ; Cardiac defibrillator in place Z95.810 and Anoxic brain injury G93.1 [facility] [address] [facility] [id number] [address] [place] [address] Mar, Acute otitis externa of left ear, unspecified type H60.502 [facility] [address] [facility] [id number] [address] [place] [address] Jan, Dermoid cyst D36.9 and Encou nter for immunization Z23 [facility] [address] [facility] [id number] [address] [place] [address] Dec, [facility] [address] [facility] [id number] [address] [place] [address] Dec, [facility] [address] [facility] [id number] [address] [place] [address] Dec, Bronchitis J40 [facility] [address] [facility] [id number] [address] [place] [address] Dec, [facility] [address] [id number] [address] [place] [phone] Nov, Caries K02.9 [facility] [address] [id number] [address] [place] [address] [phone] Sep, Caries K02.9 [facility] [address] [id number] [address] [place] [address] [phone] Aug, Caries K02.9 [facility] [address] [id number] [address] [place] [address] [phone] July, Caries K02.9 [facility] [address] [id number] [address] [place] [address] [id number] July, Dental examination Z01.20 [facility] [address] [id number] [address] [place] [address] [phone] July, Caries K02.9 [facility] [address] [id number] [address] [place] [address] Jun, [facility] [address] [id number] [address] [place] [address] [id number] Jun, Caries K02.9 [facility] [address] [id number] [address] [place] [address] Jun, Chronic atrial fibrillation I48.2 ; 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 ; Cardiomyopathy I42.9 and Cardiac defibrillator in place Z95.810 [facility] [address] [id number] [address] [place] [address] [phone] May, Caries K02.9 [facility] [address] [id number] [address] [place] [address] Apr, History of DC (myocardial in farction) I25.2 and SOB (shortness of breath) R06.02 [facility] [address] [id number] [address] [place] [address] Apr, [facility] [address] [id number] [address] [place] [address] Apr, [facility] [address] [id number] [address] [place] [address] Apr, Canker sore K12.0 [facility] [address] [id number] [address] [place] [address] [phone] Apr, Dental examination Z01.20 [facility] [address] [id number] [address] [place] [address] [id number] Mar, Caries K02.9 [facility] [address] [facility] [id number] [address] [place] [address] Feb, Surgery follow-up Z09 [facility] [address] [id number] [address] [place] [address] [id number] Feb, Caries K02.9 [facility] [address] [id number] [address] [place] [address] [id number] Jan, Caries K02.9 [facility] [address] [place] [id number] [place] [address] Oct, Foreign body in subcutaneous tissue T14.8XXA [facility] [address] [place] [id number] [place] [address] Sep, Chronic atrial fibrillation I48.2 ; Non-ischemic cardiomyopathy I42.8 ; Anoxic brain injury G93.1 and Adjustment disorder with depressed mood F43.21 [facility] [id number] [place] [address] Aug, [facility] [address] [place] [id number] [address] [place] [address] July, [facility] [address] [place] [id number] [address] [place] [address] July, [facility] [address] [facility] [id number] [address] [place] [address] Jun, Adjustment disorder with dep ressed mood F43.21 [facility] [address] [place] [id number] [address] [place] [address] Jun, [facility] [address] [place] [id number] [address] [place] [address] Jun, [facility] [address] [id number] [address] [place] [address] May, [facility] [address] [id number] [address] [place] [address] 26 May, 2017 [facility] [address] [id number] [address] [place] [phone] 16 May, 2017 [facility] [address] [id number] [address] [place] [address] 15 May, 2017 [facility] [address] [id number] [address] [place] [address] 13 May, 2017 History of cardiac arrest Z8 6.74 ; Cardiac defibrillator in place Z95.810 ; Chronic atrial fibrillation I48.2 and Current moderate episode of major depressive disorder without prior episode F32.1 [facility] [address] [id number] [address] [place] [address] May, [facility] [address] [id number] [address] [place] [address] Mar, [facility] (current) use of a nticoagulants Z79.01 [facility] [address] [id number] [address] [place] [address] Mar, [facility] [address] [id number] [address] [place] [phone] Mar, [facility] (current) use of a nticoagulants Z79.01 [facility] [address] [id number] [address] [place] [address] 08 Feb, 2017 Afib I48.91 [facility] [address] [id number] [address] [place] [address] Feb, 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 [facility] [address] [id number] [address] [place] [address] Jan, Other viral agents as the ca use of diseases classified elsewhere B97.89 ; Acute upper respiratory infection, unspecified J06.9 and Body aches R52 [place] [address] [facility] [id number] [address] [place] [address] Jan, Afib I48.91 [place] [address] [facility] [id number] [address] [place] [address] Jan, Afib I48.91 and [facility] (c urrent) use of anticoagulants Z79.01 [place] [address] [facility] [id number] [address] [place] [address] Dec, Afib I48.91 [place] [address] [facility] [id number] [address] [place] [address] Dec, Chronic atrial fibrillation I48.2 [place] [address] [facility] [id number] [address] [place] [address] Nov, Hypertension I10 [place] [address] [facility] [id number] [address] [place] [address] Oct, Chronic atrial fibrillation I48.2 [place] [address] [facility] [id number] [address] [place] [address] Oct, [facility] (current) use of a nticoagulants Z79.01 [place] [address] [facility] [id number] [address] [place] [address] Oct, Chronic atrial fibrillation I48.2 [place] [address] [facility] [id number] [address] [place] [address] Oct, Chronic atrial fibrillation I48.2 [place] [address] [facility] [id number] [address] [place] [address] Sep, [facility] (current) use of a nticoagulants Z79.01 ; Hypertension I10 ; Cardiomyopathy I42.9 and Afib I48.91 [place] [address] [facility] [id number] [address] [place] [address] Sep, 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 ; Hypertension I10 ; Cardiomyopathy I42.9 and Afib I48.91 [facility] [address] [id number] [address] [place] [address] Aug, [facility] (current) use of a nticoagulants Z79.01 [facility] [address] [id number] [address] [place] [address] Aug, 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 [facility] [address] [id number] [address] [place] [address] Aug, [facility] (current) use of a nticoagulants Z79.01 [facility] [address] [id number] [address] [place] [address] July, 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 [facility] [address] [id number] [address] [place] [address] Jun, 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 [facility] [address] [id number] [address] [place] [address] Jun, 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 [facility] [address] [id number] [address] [place] [address] May, Chronic atrial fibrillation I48.2 [facility] [address] [id number] [address] [place] [address] May, [facility] [address] [id number] [address] [place] [address] May, [facility] (current) use of a nticoagulants Z79.01 [facility] [address] [id number] [address] [place] [address] May, 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 [facility] [address] [id number] [address] [place] [address] May, Afib I48.91 ; Non-ischemic c ardiomyopathy I42.8 ; Hypotension, unspecified hypotension type I95.9 and Heart palpitations R00.2 [facility] [address] [id number] [address] [place] [phone] 16 Apr, 2016 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 [facility] [address] [id number] [address] [place] [address] 13 Apr, 2016 [facility] (current) use of a nticoagulants Z79.01 [place] [address] [id number] [address] [place] [address] Mar, [facility] (current) use of a nticoagulants Z79.01 [place] [address] [facility] [id number] [address] [place] [address] Feb, [facility] (current) use of a nticoagulants Z79.01 [place] [address] [id number] [address] [place] [address] Feb, [facility] (current) use of a nticoagulants Z79.01 [place] [address] [facility] [id number] [address] [place] [address] Jan, [facility] (current) use of a nticoagulants Z79.01 [place] [address] [facility] [id number] [address] [place] [address] Jan, 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 [place] [address] [id number] [address] [place] [address] Dec, [facility] (current) use of a nticoagulants Z79.01 [place] [address] [id number] [address] [place] [address] Dec, [facility] (current) use of a nticoagulants Z79.01 [place] [address] [facility] [id number] [address] [place] [address] Oct, 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 [facility] [address] [facility] [id number] [address] [place] [address] Oct, 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 [facility] [address] [facility] [id number] [address] [place] [address] Oct, Afib I48.91 ; Cardiomyopathy I42.9 ; Palpitations R00.2 and Non- rheumatic tricuspid valve insufficiency I36.1 [facility] [address] [facility] [id number] [address] [place] [address] Sep, Chronic atrial fibrillation I48.2 ; [facility] (current) use of anticoagulants Z79.01 ; Cardiomyopathy I42.9 and Hypertension I10 [facility] [address] [facility] [id number] [address] [place] [address] Aug, Allergic rhinitis, unspecifi ed allergic rhinitis type J30.9 [facility] [address] [facility] [id number] [address] [place] [address] Aug, [facility] (current) use of a nticoagulants Z79.01 [facility] [address] [facility] [id number] [address] [place] [address] Jun, 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 [facility] [address] [facility] [id number] [address] [place] [address] Jun, [facility] (current) use of a nticoagulants Z79.01 [facility] [address] [facility] [id number] [address] [place] [address] Jun, 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 [facility] [address] [facility] [id number] [address] [place] [address] Jun, [facility] [address] [facility] [id number] [address] [place] [address] May, Encounter for long-term (cur rent) use of anticoagulants V58.61 [place] [address] [facility] [id number] [address] [place] [address] May, Encounter for long-term (cur rent) use of anticoagulants V58.61 [place] [address] [facility] [id number] [address] [place] [address] May, Encounter for long-term (cur rent) use of anticoagulants V58.61 [place] [address] [facility] [id number] [address] [place] [address] Apr, Encounter for long-term (cur rent) use of anticoagulants V58.61 [place] [address] [facility] [id number] [address] [place] [address] Apr, 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 [place] [address] [place] [id number] [address] [place] [address] Apr, Afib I48.91 ; Hypertension I 10 ; Cardiomyopathy I42.9 and Palpitations R00.2 [place] [address] [place] [id number] [address] [place] [address] Mar, [facility] (current) use of a nticoagulants Z79.01 [place] [address] [facility] [id number] [address] [place] [address] Mar, Encounter for long-term (cur rent) use of anticoagulants V58.61 [place] [address] [facility] [id number] [address] [place] [address] Mar, Encounter for long-term (cur rent) use of anticoagulants V58.61 [place] [address] [place] [id number] [address] [place] [address] Mar, [facility] (current) use of a nticoagulants Z79.01 and Encounter for therapeutic drug level monitoring Z51.81 [place] [address] [place] [id number] [address] [place] [address] Feb, [facility] (current) use of a nticoagulants Z79.01 and Encounter for therapeutic drug level monitoring Z51.81 [place] [address] [id number] [address] [place] [address] Feb, Encounter for long-term (cur rent) use of anticoagulants V58.61 [place] [address] [id number] [address] [place] [address] Feb, [place] [address] [id number] [address] [place] [address] Feb, Encounter for long-term (cur rent) use of anticoagulants V58.61 [place] [address] [id number] [address] [place] [address] Feb, Encounter for therapeutic dr ug level monitoring Z51.81 [place] [address] [id number] [address] [place] [address] Jan, [place] [address] [id number] [address] [place] [address] Dec, Encounter for long-term (cur rent) use of anticoagulants V58.61 and Atrial fibrillation 427.31 [place] [address] [id number] [address] [place] [address] Dec, Chest wall muscle strain S29 .011A [place] [address] [id number] [address] [place] [address] Nov, Encounter for long-term (cur rent) use of anticoagulants V58.61 and Atrial fibrillation 427.31 [place] [address] [id number] [address] [place] [address] Nov, Atrial fibrillation 427.31 [place] [address] [id number] [address] [place] [address] Nov, [place] [address] [id number] [address] [place] [address] Nov, Atrial fibrillation 427.31 [place] [address] [id number] [address] [place] [address] 10 Nov, 2014 Atrial fibrillation 427.31 [facility] [address] [id number] [address] [place] [address] Oct, Encounter for long-term (cur rent) use of anticoagulants V58.61 [facility] [address] [id number] [address] [place] [id number] Sep, Encounter for long-term (cur rent) use of anticoagulants V58.61 [facility] [address] [id number] [address] [place] [id number] Aug, Encounter for long-term (cur rent) use of anticoagulants V58.61 [facility] [address] [id number] [address] [place] [phone] July, [facility] [address] [id number] [address] [place] [id number] July, [facility] [address] [id number] [address] [place] [phone] July, [facility] [address] [id number] [address] [place] [phone] Jun, [facility] [address] [id number] [address] [place] [id number] Jun, [facility] [address] [id number] [address] [place] [id number] May, [facility] [address] [id number] [address] [place] [phone] May, [facility] [address] [id number] [address] [place] [phone] May, [facility] [address] [id number] [address] [place] [id number] Apr, [facility] [address] [id number] [address] [place] [id number] Apr, [facility] [address] [id number] [address] [place] [address], [place] [id number] 17 Apr, 2014 [facility] [address] [id number] [address] [place] [address], [place] [id number] Apr, 2014 [facility] [address] [id number] [address] [place] [address], [place] [id number] 10 Apr, 2014 [facility] [address] [id number] [address] [place] [address], [place] [address] Apr, [facility] [address] [id number] [address] [place] [address], [place] [address] Apr, [facility] [address] [id number] [address] [place] [address], [place] [id number] Mar, [facility] [address] [id number] [address] [place] [address], [place] [id number] Mar, [facility] [address] [id number] [address] [place] [address], [place] [id number] Mar, [facility] [address] [id number] [address] [place] [address], [place] [address] Mar, [facility] [address] [id number] [address] [place] [address], [place] [id number] Mar, [facility] [address] [id number] [address] [place] [address], [place] [address] Mar, [facility] [address] [id number] [address] [place] [address], [place] [address] Mar, [facility] [address] [id number] [address] [place] [address], [place] [address] Mar, [facility] [address] [id number] [address] [place] [address], [place] [address] Feb, [facility] [address] [id number] [address] [place] [address], [place] [address] Feb, [facility] [address] [id number] [address] [place] [address], [place] [address] Feb, [facility] [address] [id number] [address] [place] [address], [place] [address] Feb, [facility] [address] [id number] [address] [place] [address], [place] [address] Feb, [facility] [address] [id number] [address] [place] [address], [place] [address] Feb, [facility] [address] [id number] [address] [place] [address], [place] [address] Jan, [facility] [address] [id number] [address] [place] [address], [place] [address] Jan, [facility] [address] [id number] [address] [place] [address], [place] [address] Jan, [facility] [address] [id number] [address] [place] [address], [place] [address] Jan, [facility] [address] [id number] [address] [place] [address], [place] [address] Jan, [facility] [address] [id number] [address] [place] [address], [place] [address] Jan, [facility] [address] [id number] [address] [place] [address], [place] [address] Dec, [facility] [address] [id number] [address] [place] [address], [place] [address] Dec, [facility] [address] [id number] [address] [place] [address] Dec, [facility] [address] [id number] [address] [place] [address], [place] [address] Dec, [facility] [address] [id number] [address] [place] [address], [place] [address] Nov, [facility] [address] [id number] [address] [place] [address], [place] [address] Nov, [facility] [address] [id number] [facility] [place] [address] Oct, [facility] [address] [id number] [address] [place] [address], [place] [address] Oct, [facility] [address] [id number] [address] [place] [address], [place] [address] Oct, [facility] [address] [id number] [address] [place] [address], [place] [address] Oct, [facility] [address] [id number] [address] [place] [address], [place] [address] Oct, [facility] [address] [id number] [address] [place] [address], [place] [address] Oct, [facility] [address] [id number] [address] [place] [address], [place] [address] Sep, [facility] [address] [id number] [address] [place] [address], [place] [address] Sep, [facility] [address] [id number] [address] [place] [address], [place] [address] Sep, [facility] [address] [id number] [address] [place] [address], [place] [address] Sep, [facility] [address] [id number] [address] [place] [address], [place] [address] Sep, [facility] [address] [id number] [address] [place] [address], [place] [address] Sep, [facility] [address] [id number] [address] [place] [address], [place] [address] Sep, [facility] [address] [id number] [address] [place] [address], [place] [address] Sep, [facility] [address] [id number] [address] [place] [address], [place] [address] Sep, [facility] [address] [id number] [address] [place] [address], [place] [address] Sep, [facility] [address] [id number] [address] [place] [address] Sep, [facility] [address] [id number] [address] [place] [address] Sep, [facility] [address] [id number] [address] [place] [address] Sep, [facility] [address] [id number] [address] [place] [address] Sep, [facility] [address] [id number] [address] [place] [address] Feb, [facility] [address] [id number] [address] [place] [address] Feb, [facility] [address] [id number] [address] [place] [address] July, [facility] [address] [id number] [address] [place] [address] Apr, [facility] [address] [id number] [address] [place] [address] Apr, [facility] [address] [id number] [address] [place] [address] Apr, [facility] [address] [id number] [address] [place] [address] Apr, IMMUNIZATIONS No Known Immunizations SOCIAL HISTORY Never Assessed REASON FOR VISIT PLAN OF CARE VITAL SIGNS Height 63.5 in 2013-03-16 Weight 198.44 lbs 2013-03-16 Temperature 101.4 degrees Fahrenheit 2013-03-16 Heart Rate 80 bpm 2013-03-16 Respiratory Rate 20 2013-03-16 Blood pressure systolic 130 mmHg 2013-03-16 Blood pressure diastolic 84 mmHg 2013-03-16 MEDICATIONS Unknown Medications RESULTS No Results PROCEDURES Procedure Date Ordered Result Body Site INFLUENZA ASSAY W/OPTIC Mar 16, 2013 INSTRUCTIONS MEDICATIONS ADMINISTERED No Known Medications MEDICAL (GENERAL) HISTORY Type Description Date Medical History Atrial fibrillation Medical History hx of c. diff Medical History Stress test performed; EF 25% Last test 2016 was at 60% Medical History Palpitations Medical History Cardiac Arrest with CPR and Intubation with ET tube and transferred to [facility] Trach placed 03/2017 due to A Fib resulting in anoxic brain injury and memory loss Medical History 03/02-03/03/18 heart surgery Surgical History Defibrillation placed 2017 Surgical History Trach/PEG Tube placed and removed [facility] a fter Intubation 2017 Surgical History heart surgery 2017 Surgical History heart surgery 03/02-03/03/18 Hospitalization History ICU for Afib 09/2013 Hospitalization History Admitted to Transferred to [facility] ICU/ Rehab 03/2017 Hospitalization History Coded, Defribrillated and ET tube placed for ventillation and transferred to [facility] 03/2017 Hospitalization History surgery 09/29/2017 Hospitalization History heart surgery 03/02-03/03/18
--- OUTSIDE RECORDS SUMMARY | 2019-10-28 09:54 | XMS REPORT | Encounter Summary ---
Author Author [facility] Organization [facility] Address Unknown Phone Unavailable Care Team Providers Care Bank Accountant Name Role Phone Erum Foreman MD PCP Erum Foreman MD 100 Encounter Details Care Team Description Date Type Department Emilie Mcfarlane RN 05/08/[address] [address] Social History Date Tobacco Use Types [...] encounter Miscellaneous Notes * Telephone Encounter - Emilie Mcfarlane RN - 05/08/2019 9:22 AM DOOR MAKER attempted to return call but had to leave message relayed we had received information below and will put that info in his chart if Dad has further concerns or questions to please call back on the EP nurse tri age number MAKER * Telephone Encounter - Emilie Mcfarlane RN - 05/08/2019 9:22 AM DOOR MAKER ----- Message from Alejandra Murrieta LPN sent at 05/08/2019 8:54 AM DOOR MAKER ----- Regarding: YMR- f/u on comdition VM from dad Je # [phone] on triage line. Said that he is calling to update YMR on his sons condition. Said that 4pm Monday he c/o neck and abdomen pain and SOA. At 1am Monday his HR 90 then 3am 100. He took him to ED and was given fluids and 4 baby aspirin with EKG done. He now has headache and will see PCP today. MAKER documented in this encounter Plan of Treatment Not on filedocumented as of this encounter Visit Diagnoses Not on filedocumented in this encounter
--- NOTE | 2019-10-28 09:55 | ED Cardiac General ---
History of Present Illness General Stated Complaint: SOB;CHEST PAIN Source: patient Exam Limitations: no limitations History of Present Illness Date Seen by Provider: Oct 28, 2019 Time Seen by Provider: 09:55 Initial Comments 34-year-old male presents with chest pain. It is substernal. It started this morning. It does not radiate. Gets a little bit worse if he lays back. No shortness of breath. No nausea vomiting or diaphoresis. Patient does have prior heart heart attack history due to atrial fib. Patient reports he has some hypoxic brain injury due to it. Patient describes the pain as a dull ache. Allergies and Home Medications Allergies Coded Allergies: Penicillins (Verified Allergy, Unknown, 09/19/13) Home Medications Apixaban 5 Mg Tablet, 5 MG PO BID, (Reported) Calcium Carbonate/Mag Carb/FA 1 Each Tablet, 1 EACH PO BID, (Reported) Metoprolol Tartrate 50 Mg Tablet, 50 MG PO BID, (Reported) Patient Home Medication List Home Medication List Reviewed: Yes Review of Systems Review of Systems Constitutional: No chills, No diaphoresis, No fever, No malaise, No weakness Cardiovascular: Chest Pain; Denies Edema, Denies Irregular Heart Rate, Denies Lightheadedness, Denies Syncope Gastrointestinal: Denies Abdominal Pain, Denies Diarrhea, Denies Nausea, Denies Vomiting Genitourinary: No Symptoms Reported Musculoskeletal: no symptoms reported Psychiatric/Neurological: No Symptoms Reported Endocrine: No Symptoms Reported Past Gvhwbkh-Bzashx-Amrxsw Hx Past Med/Social Hx: Reviewed Nursing Past Med/Soc Hx Patient Social History 2nd Hand Smoke Exposure: No Recent Hopitalizations: No Immunizations Up To Date Tetanus Booster (TDap): More than 5yrs Past Medical History Surgeries: Yes (ABLATION, MINI JOHNNA, PEG TUBE, TRACH) Pacemaker Respiratory: No Cardiac: Yes Atrial Fibrillation, Cardiomyopathy Neurological: Yes Reproductive Disorders: No Genitourinary: No Gastrointestinal: Yes Gastroesophageal Reflux, Chronic Constipation Musculoskeletal: No Endocrine: No HEENT: No Cancer: No Psychosocial: No Integumentary: Yes Herpes Blood Disorders: No Adverse Reaction/Blood Tranf: No Family Medical History Family history: Arthritis 19 FATHER (rhumatoid arthrtis) 19 MOTHER Family history: Asthma 19 MOTHER Family history: Hypertension 19 FATHER History of - anemia 19 MOTHER Hypercholesterolemia 19 FATHER Psychotic disorder 19 MOTHER (depression/anxiety) Physical Exam Vital Signs Vital Signs - First Documented 10/28/19 09:45 Temp 36.8 Pulse 76 Resp 26 B/P (MAP) 130/97 (108) Pulse Ox 98 O2 Delivery Room Air Capillary Refill : Height, Weight, BMI Height: 5'4.00" Weight: 217lbs. 7.0oz. 98.881830tr; 37.00 BMI Method:Stated General Appearance: No Apparent Distress, WD/WN HEENT: PERRL/EOMI Neck: Non Tender, Supple Respiratory: Lungs Clear, Normal Breath Sounds Cardiovascular: Regular Rate, Rhythm, No Edema, Normal Peripheral Pulses Gastrointestinal: Non Tender, Soft Extremity: Normal Capillary Refill, Normal Range of Motion Neurologic/Psychiatric: Alert, Oriented x3, Normal Mood/Affect, .net developer II-XII Norm as Tested Skin: Normal Color, Warm/Dry Lymphatic: No Adenopathy Procedures/Interventions Date of ETT Placement: Mar 31, 2017 Time of ETT Placement: 755 Progress/Results/Core Measures Results/Orders Lab Results Laboratory Tests Test 10/28/19 09:54 10/28/19 12:02 Range/Units White Blood Count 10.9 4.3-11.0 10^3/uL Red Blood Count 5.57 4.35-5.85 10^6/uL Hemoglobin 14.5 13.3-17.7 G/DL Hematocrit 44 40-54 % Mean Corpuscular Volume 79 L 80-99 FL Mean Corpuscular Hemoglobin 26 25-34 PG Mean Corpuscular Hemoglobin Concent 33 32-36 G/DL Red Cell Distribution Width 16.6 H 10.0-14.5 % Platelet Count 286 130-400 10^3/uL Mean Platelet Volume 10.2 7.4-10.4 FL Neutrophils (%) (Auto) 69 42-75 % Lymphocytes (%) (Auto) 21 12-44 % Monocytes (%) (Auto) 7 0-12 % Eosinophils (%) (Auto) 3 0-10 % Basophils (%) (Auto) 1 0-10 % Neutrophils # (Auto) 7.6 1.8-7.8 X 10^3 Lymphocytes # (Auto) 2.3 1.0-4.0 X 10^3 Monocytes # (Auto) 0.8 0.0-1.0 X 10^3 Eosinophils # (Auto) 0.3 0.0-0.3 10^3/uL Basophils # (Auto) 0.1 0.0-0.1 10^3/uL Prothrombin Time 12.8 12.2-14.7 SEC INR Comment 0.9 0.8-1.4 Activated Partial Thromboplast Time 31 24-35 SEC Sodium Level 138 135-145 MMOL/L Potassium Level 4.3 3.6-5.0 MMOL/L Chloride Level 102 98-107 MMOL/L Carbon Dioxide Level 26 21-32 MMOL/L Anion Gap 10 5-14 MMOL/L Blood Urea Nitrogen 10 7-18 MG/DL Creatinine 0.85 0.60-1.30 MG/DL Estimat Glomerular Filtration Rate > 60 BUN/Creatinine Ratio 12 Glucose Level 113 H 70-105 MG/DL Calcium Level 9.0 8.5-10.1 MG/DL Corrected Calcium 8.8 8.5-10.1 MG/DL Magnesium Level 2.0 1.6-2.4 MG/DL Total Bilirubin 0.4 0.1-1.0 MG/DL Aspartate Amino Transf (AST/SGOT) 19 5-34 U/L Alanine Aminotransferase (ALT/SGPT) 26 0-55 U/L Alkaline Phosphatase 60 40-136 U/L Myoglobin 21.7 10.0-92.0 NG/ML Troponin I < 0.028 < 0.028 <0.028 NG/ML Total Protein 8.1 6.4-8.2 GM/DL Albumin 4.3 3.2-4.5 GM/DL Lipase 18 8-78 U/L My Orders Orders - SAMUEL,TASNEEM L DO Cbc With Automated Diff (10/28/19 09:56) Magnesium (10/28/19 09:56) Chest 1 View, Ap/Pa Only (10/28/19:56) Ekg Tracing (10/28/19 09:56) Comprehensive Metabolic Panel (10/28/19 09:56) Myoglobin Serum (10/28/19:56) Protime With Inr (10/28/19:56) Partial Thromboplastin Time (10/28/19 09:56) O2 (10/28/19 09:56) Monitor-Rhythm Ecg Trace Only (10/28/19 09:56) Lipid Panel (10/29/19 06:00) Ed Iv/Invasive Line Start (10/28/19 09:56) Lipase (10/28/19 09:56) Troponin I (10/28/19 09:56) Aspirin Chewable Tablet (Baby Aspirin Ch (10/28/19 10:00) Famotidine Injection (Pepcid Injection) (10/28/19 09:56) Troponin I (10/28/19 11:46) Medications Given in ED Current Medications Medications Dose Ordered Sig/William Route Start Time Stop Time Status Last Admin Dose Admin Aspirin 324 mg ONCE ONCE PO 10/28/19 10:00 10/28/19 10:01 DC 10/28/19 10:05 324 MG Vital Signs/I&O 10/28/19 09:45 Temp 36.8 Pulse 76 Resp 26 B/P (MAP) 130/97 (108) Pulse Ox 98 O2 Delivery Room Air Progress Progress Note : Progress Note Patient with no acute findings on exam. Patient with negative EKG and negative troponin 2. Patient's symptoms are more consistent of an atypical chest pain such as a bronchitis or reflux versus cardiac in nature. I did recommend he follow up with stock buyer due to his history along with start a medication for reflux if he is not ionic. Patient symptoms did improve with the famotidine. Patient is stable and is discharged home. Due to patient's short-term memory problems from is hypoxic brain injury I did visit with his dad 2 times and went over these recommendations with his father. Departure Impression Primary Impression: Chest pain Qualified Codes: R07.9 - Chest pain, unspecified Additional Impression: Gastroesophageal reflux disease Qualified Codes: K21.9 - Gastro-esophageal reflux disease without esophagitis Disposition: HOME, SELF-CARE Condition: Stable Departure-Patient Inst. Referrals: BROOK WILSON MD (PCP/Family) Primary Care Physician Patient Instructions: Acid Reflux (Gastroesophageal Reflux Disease), Adult (DC), Chest Pain (DC) Add. Discharge Instructions: Please follow-up with your primary care provider in 2-3 days for continuation of care, recheck of today symptoms. Please have them help you arrange a follow-up with your stock buyer for further evaluation and possible stress test. Return to the ER as needed TASNEEM SAUMEL DO Oct 28, 2019 09:55
--- OUTSIDE RECORDS SUMMARY | 2019-10-28 09:55 | XMS REPORT ---
Author Author Je TAPIA Organization [facility] Address [address] [place] [address] Care Team Providers Care Respite Provider Name Role Phone JADIEL TAPIA Unavailable PROBLEMS Type Condition ICD9-CM Code ZIR36-SM Code Onset Dates Condition S tatus SNOMED Code Problem Anoxic brain injury G93.1 Active 623071066 Problem Cardiomyopathy I42.9 Active 75870 001 Problem retirement (current) use of anticoagulants Z79.01 Active 400099671 Problem Adjustment disorder with depressed mood F43.21 Active 93116306 Problem History of SC (myocardial infarction) I25.2 Active 434846592 Problem Chronic atrial fibrillation I48.2 Ac tive 587569895 Problem Non-ischemic cardiomyopathy I42.8 Ac tive 74823901 Problem History of cardiac arrest Z86.74 Acti ve 288395424 Problem Cardiac defibrillator in place Z95.810 Active 101505039 ALLERGIES No Information ENCOUNTERS Encounter Location Date Diagnosis [place] [id number] [place] [address] Jan, Dermoid cyst D36.9 and Encounter for imm unization Z23 [place] [address] [address] Dec, [facility] [address] [address] Dec, [place] [address] [address] Dec, Bronchitis J40 [place] [address] [address] Dec, [facility] [address] [id number] [place] [id number] Nov, Caries K02.9 [facility] [address] [id number] Sep, Caries K02.9 [facility] [address] [id number] Aug, Caries K02.9 [facility] [address] [id number] July, Caries K02.9 [facility] [address] [id number] July, Dental examination Z01.20 [facility] [address] [id number] July, Caries K02.9 [facility] [address] [address] Jun, [facility] [address] [id number] Jun, Caries K02.[address] [address] Jun, Chronic atrial fibrillation I48.2 ; 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 ; Cardiomyopathy I42.9 and Cardiac defibrillator in place Z95.810 [facility] [address] [id number] May, Caries K02.9 [facility] [address] [place] [address] Apr, History of SC (myocardial infarction) I2 5.2 and SOB (shortness of breath) R06.02 [facility] [address] [address] Apr, [facility] [address] [address] Apr, [facility] [address] [address] Apr, Canker sore K12.0 [facility] [address] [id number] Apr, Dental examination Z01.20 [facility] [address] [id number] Mar, Caries K02.9 [facility] [address] [address] Feb, Surgery follow-up Z09 [facility] [address] [id number] Feb, Caries K02.9 [facility] [address] [id number] Jan, Caries K02.9 [facility] [address] [address] Oct, Foreign body in subcutaneous tissue T14. 8XXA [facility] [address] [address] Sep, Chronic atrial fibrillation I48.2 ; Non- ischemic cardiomyopathy I42.8 ; Anoxic brain injury G93.1 and Adjustment disorder with depressed mood F43.21 [facility] [address] [address] Aug, [facility] [address] [address] July, [facility] [address] [address] July, [facility] [address] [address] Jun, Adjustment disorder with depressed mood F43.21 [facility] [address] [address] Jun, [facility] [address] [address] Jun, [facility] [address] [address] May, [facility] [address] [address] May, [place] [address] [address] 16 May, 2017 [place] [address] [address] 15 May, 2017 [place] [address] [address] 13 May, 2017 History of cardiac arrest Z86.74 ; Cardi ac defibrillator in place Z95.810 ; Chronic atrial fibrillation I48.2 and Current moderate episode of major depressive disorder without prior episode F32.1 [place] [address] [address] 12 May, 2017 [place] [address] [address] Mar, retirement (current) use of anticoagulant s Z79.01 [place] [address] [address] Mar, [place] [address] [address] Mar, 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 [place] [address] [address] Feb, Afib I48.91 [place] [address] [address] Feb, 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 [facility] [address] [facility] [id number] [place] [address] Jan, Other viral agents as the ca use of diseases classified elsewhere B97.89 ; Acute upper respiratory infection, unspecified J06.9 and Body aches R52 [place] [address] [address] 17 Jan, 2017 Afib I48.91 [place] [address] [address] 09 Jan, 2017 Afib I48.91 and retirement (current) use of anticoagulants Z79.01 [place] [address] [address] Dec, Afib I48.91 [place] [address] [address] Dec, Chronic atrial fibrillation I48.2 [place] [address] [address] Nov, Hypertension I10 [place] [address] [address] Oct, Chronic atrial fibrillation I48.2 [place] [address] [address] Oct, retirement (current) use of anticoagulant s Z79.01 [place] [address] [address] Oct, Chronic atrial fibrillation I48.2 [place] [address] [address] Oct, Chronic atrial fibrillation I48.2 [place] [address] [address] Sep, 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 ; Hypertension I10 ; Cardiomyopathy I42.9 and Afib I48.91 [place] [address] [address] Sep, retirement (current) use of anticoagulant s Z79.01 ; Hypertension I10 ; Cardiomyopathy I42.9 and Afib I48.91 [place] [address] [address] Aug, 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 [place] [address] [address] Aug, retirement (current) use of anticoagulant s Z79.01 [place] [address] [address] Aug, retirement (current) use of anticoagulant s Z79.01 [place] [address] [address] July, 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 [place] [address] [address] Jun, 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 [place] [address] [address] Jun, retirement (current) use of anticoagulant s Z79.01 [place] [address] [address] May, Chronic atrial fibrillation I48.2 [place] [address] [address] 17 May, 2016 [place] [address] [address] May, retirement (current) use of anticoagulant s Z79.01 [place] [address] [address] 10 May, 2016 retirement (current) use of anticoagulant s Z79.01 [place] [address] [address] 10 May, 2016 Afib I48.91 ; Non-ischemic cardiomyopath y I42.8 ; Hypotension, unspecified hypotension type I95.9 and Heart palpitations R00.2 [place] [address] [address] 16 Apr, 2016 retirement (current) use of anticoagulant s Z79.01 [place] [address] [address] 13 Apr, 2016 retirement (current) use of anticoagulant s Z79.01 [place] [address] [address] Mar, retirement (current) use of anticoagulant s Z79.01 [place] [address] [address] Feb, 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 [place] [address] [address] Feb, retirement (current) use of anticoagulant s Z79.01 [place] [address] [address] Jan, retirement (current) use of anticoagulant s Z79.01 [place] [address] [address] Jan, retirement (current) use of anticoagulant s Z79.01 [place] [address] [address] Dec, 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 [place] [address] [address] Dec, 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 [place] [address] [address] Oct, 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 [place] [address] [address] Oct, retirement (current) use of anticoagulant s Z79.01 [place] [address] [address] Oct, Afib I48.91 ; Cardiomyopathy I42.9 ; Pal pitations R00.2 and Non- rheumatic tricuspid valve insufficiency I36.1 [place] [address] [address] Sep, Chronic atrial fibrillation I48.2 ; retirement (current) use of anticoagulants Z79.01 ; Cardiomyopathy I42.9 and Hypertension I10 [facility] [address] [facility] [id number] [address] [place] [address] Aug, Allergic rhinitis, unspecifi ed allergic rhinitis type J30.9 [place] [address] [address] Aug, retirement (current) use of anticoagulant s Z79.01 [place] [address] [address] Jun, retirement (current) use of anticoagulant s Z79.01 [place] [address] [address] Jun, retirement (current) use of anticoagulant s Z79.01 [place] [address] [address] Jun, retirement (current) use of anticoagulant s Z79.01 [place] [address] [address] Jun, [address] [address] May, Encounter for long-term (current) use of anticoagulants V58.[address] [address] May, Encounter for long-term (current) use of anticoagulants V58.61 [place] [address] [address] May, Encounter for long-term (current) use of anticoagulants V58.[address] [address] Apr, Encounter for long-term (current) use of anticoagulants V58.[address] [address] Apr, retirement (current) use of anticoagulant s Z79.[address] [address] Apr, Afib I48.91 ; Hypertension I10 ; Cardiom yopathy I42.9 and Palpitations R00.[address] [place] [address] Mar, 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 [address] Mar, Encounter for long-term (current) use of anticoagulants V58.[address] [address] Mar, Encounter for long-term (current) use of anticoagulants V58.61 [place] [address] [address] Mar, retirement (current) use of anticoagulant s Z79.01 and Encounter for therapeutic drug level monitoring Z51.[address] [address] Feb, 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 and Encounter for therapeutic drug level monitoring Z51.[address] [address] Feb, Encounter for long-term (current) use of anticoagulants V58.[address] [address] Feb, [address] [address] Feb, Encounter for long-term (current) use of anticoagulants V58.[address] [address] Feb, Encounter for therapeutic drug level mon itoring Z51.[address] [address] Jan, [address] [address] Dec, Encounter for long-term (current) use of anticoagulants V58.61 and Atrial fibrillation 427.[address] [address] Dec, Chest wall muscle strain S29.011A [facility] [id number] [place] [address] Nov, Encounter for long-term (current) use of anticoagulants V58.61 and Atrial fibrillation 427.31 [place] [id number] [place] [address] Nov, Atrial fibrillation 427.31 [place] [address] [address] Nov, [place] [id number] [place] [address] Nov, Atrial fibrillation 427.31 [place] [address] [address] Nov, Atrial fibrillation 427.31 [place] [id number] [place] [address] Oct, Encounter for long-term (current) use of anticoagulants V58.61 [place] [id number] [place] [address] Sep, Encounter for long-term (current) use of anticoagulants V58.61 [place] [id number] [place] [address] Aug, Encounter for long-term (current) use of anticoagulants V58.61 [place] [id number] [place] [address] July, [place] [id number] [place] [address] July, [place] [id number] [place] [address] July, [place] [address] [address] Jun, [place] [id number] [place] [address] Jun, [place] [address] [place] [address] May, [facility] [place] [facility] [address] [facility] [id number] [place] [address] May, [facility] [place] [facility] [address] [id number] [place] [address] May, [facility] [place] [facility] [address] [id number] [place] [address] Apr, [facility] [place] [facility] [address] [id number] [place] [address] Apr, [facility] [place] [facility] [address] [id number] [place] [address] Apr, [facility] [place] [facility] [address] [id number] [place] [address] Apr, [facility] [place] [facility] [address] [id number] [place] [address] Apr, [facility] [place] [facility] [address] [id number] [place] [address] Apr, [facility] [place] [facility] [address] [id number] [place] [address] Apr, [facility] [place] [facility] [address] [id number] [place] [address] Mar, [facility] [place] [facility] [address] [id number] [place] [address] Mar, [facility] [place] [facility] [address] [id number] [place] [address] Mar, [facility] [place] [facility] [address] [id number] [place] [address] Mar, [facility] [place] [facility] [address] [id number] [place] [address] Mar, [facility] [place] [facility] [address] [id number] [place] [address] Mar, [facility] [place] [facility] [address] [id number] [place] [address] Mar, [facility] [place] [facility] [address] [id number] [place] [address] Mar, [facility] [place] [facility] [address] [id number] [place] [address] Feb, [facility] [place] [facility] [address] [id number] [place] [address] Feb, [facility] [place] [facility] [address] [id number] [place] [address] Feb, [facility] [place] [facility] [address] [id number] [place] [address] Feb, [facility] [place] [facility] [address] [id number] [place] [address] Feb, [facility] [place] [facility] [address] [id number] [place] [address] Feb, [facility] [place] [facility] [id number] [place] [address] Jan, [facility] [place] [facility] [address] [id number] [place] [address] Jan, [facility] [place] [facility] [address] [id number] [place] [address] Jan, [facility] [place] [facility] [address] [id number] [place] [address] Jan, [facility] [place] [facility] [address] [id number] [place] [address] Jan, [facility] [place] [facility] [address] [id number] [place] [address] Jan, [facility] [place] [facility] [address] [id number] [place] [address] Dec, [facility] [place] [facility] [address] [id number] [place] [address] Dec, [facility] [place] [facility] [address] [id number] [place] [address] Dec, [facility] [place] [facility] [address] [id number] [place] [address] Dec, [facility] [place] [facility] [address] [facility] [id number] [place] [address] Nov, [facility] [place] [facility] [address] [facility] [id number] [place] [address] Nov, [facility] [place] [facility] [address] [id number] [place] [address] Oct, [facility] [place] [facility] [address] [facility] [id number] [place] [address] Oct, [facility] [place] [facility] [address] [facility] [id number] [place] [address] Oct, [facility] [place] [facility] [address] [facility] [id number] [place] [address] Oct, [facility] [place] [facility] [address] [id number] [place] [address] Oct, [facility] [place] [facility] [address] [id number] [place] [address] Oct, [facility] [place] [facility] [address] [facility] [id number] [place] [address] Sep, [facility] [place] [facility] [address] [facility] [id number] [place] [address] Sep, [facility] [place] [facility] [address] [id number] [place] [address] Sep, [facility] [place] [facility] [address] [id number] [place] [address] Sep, [facility] [place] [facility] [address] [facility] [id number] [place] [address] Sep, [facility] [place] [facility] [address] [facility] [id number] [place] [address] Sep, [facility] [place] [facility] [address] [facility] [id number] [place] [address] Sep, [facility] [place] [facility] [address] [id number] [place] [address] Sep, [facility] [place] [facility] [id number] [place] [address] Sep, [facility] [id number] [place] [address] Sep, [facility] [id number] [place] [address] Sep, [facility] [id number] [place] [address] Sep, [facility] [address] [address] Sep, [facility] [address] [address] Sep, [facility] [address] [address] Feb, [facility] [address] [address] Feb, [facility] [address] [address] July, [facility] [address] [address] Apr, [facility] [address] [address] Apr, [facility] [id number] [place] [address] Apr, [facility] [address] [address] Apr, IMMUNIZATIONS No Known Immunizations SOCIAL HISTORY Never Assessed REASON FOR VISIT PLAN OF CARE VITAL SIGNS MEDICATIONS No [...] Intubation with ET tube and transferred to [facility] placed 03/2017 due to A Fib resulting in anoxic brain injury and memory loss Medical History 03/02-03/03/18 heart surgery Surgical History Defibrillation placed 2017 Surgical History Trach/PEG Tube placed and removed [facility] a fter Intubation 2017 Surgical History heart surgery 2018 Surgical History heart surgery 03/02-03/03/18 Hospitalization History ICU for Afib 09/2013 Hospitalization History Admitted to Transferred to [facility] ICU/ Rehab 03/2017 Hospitalization History Coded, Defribrillated and ET tube placed for ventillation and transferred to [facility] 03/2017 Hospitalization History surgery 09/29/2017 Hospitalization History heart surgery 03/02-03/03/18
--- OUTSIDE RECORDS SUMMARY | 2019-10-28 09:55 | XMS REPORT ---
Author Author Je AMADOR Organization [facility] Address [address] [place] [address] Care Team Providers Care Handle Bar Assembler Name Role Phone KARI AMADOR Unavailable PROBLEMS Type Condition ICD9-CM Code [id number] Code Onset Dates Condition S tatus SNOMED Code Problem Cardiomyopathy I42.9 Active 66384 001 Problem group home (current) use of anticoagulants Z79.01 Active 689594875 Problem Chronic atrial fibrillation I48.2 Ac tive 315010971 Problem History of SD (myocardial infarction) I25.2 Active 487652211 Problem Anoxic brain injury G93.1 Active 137258330 Problem Non morbid obesity E66.9 Active 4 89753933 Problem Non-ischemic cardiomyopathy I42.8 Ac tive 60295147 Problem History of cardiac arrest Z86.74 Acti ve 440194296 Problem Cardiac defibrillator in place Z95.810 Active 920427675 Problem Adjustment disorder with depressed mood F43.21 Active 71751103 ALLERGIES No Information ENCOUNTERS Encounter Location Date Diagnosis [facility] [address] [id number] [address] [place] [address] Jun, [id number] [place] [address] May, [facility] [address] [id number] [address] [place] [phone] May, Cardiomyopathy I42.9 and Non morbid obesity E66.9 [facility] [address] [id number] [address] [place] [address] Apr, Fatigue, unspecified type R5 3.83 ; group home (current) use of anticoagulants Z79.01 ; Cardiac defibrillator in place Z95.810 and Anoxic brain injury G93.1 [facility] [address] [id number] [address] [place] [address] Mar, Acute otitis externa of left ear, unspecified type H60.502 [facility] [address] [facility] [id number] [address] [place] [address] Jan, Dermoid cyst D36.9 and Encou nter for immunization Z23 [facility] [address] [id number] [address] [place] [address] Dec, [facility] [address] [facility] [id number] [address] [place] [address] Dec, [facility] [address] [facility] [id number] [address] [place] [phone] Dec, Bronchitis J40 [facility] [address] [facility] [id number] [address] [place] [phone] Dec, [facility] [address] [place] [address] [id number] Nov, Caries K02.9 [facility] [address] [id number] [place] [address] [phone] Sep, Caries K02.9 [facility] [address] [id number] [place] [address] [id number] Aug, Caries K02.9 [facility] [address] [id number] [address] [place] [address] [phone] July, Caries K02.9 [facility] [address] [id number] [place] [address] [id number] July, Dental examination Z01.20 [facility] [address] [id number] [address] [place] [address] [id number] July, Caries K02.9 [facility] [address] [id number] [address] [place] [address] Jun, [facility] [address] [id number] [address] [place] [address] [id number] Jun, Caries K02.9 [facility] [address] [facility] [id number] [address] [place] [address] Jun, Chronic atrial fibrillation I48.2 ; group home (current) use of anticoagulants Z79.01 ; Cardiomyopathy I42.9 and Cardiac defibrillator in place Z95.810 [facility] [address] [facility] [id number] [place] [address] [phone] May, Caries K02.9 [facility] [address] [facility] [id number] [place] [phone] Apr, History of SD (myocardial in farction) I25.2 and SOB (shortness of breath) R06.02 [facility] [address] [facility] [id number] [place] [phone] Apr, [facility] [address] [id number] [place] [phone] Apr, [facility] [address] [phone] Apr, Canker sore K12.0 [facility] [address] [id number] Apr, Dental examination Z01.20 [facility] [address] [id number] Mar, Caries K02.9 [facility] [address] [id number] [address] [place] [address] Feb, Surgery follow-up Z09 [facility] [address] [id number] Feb, Caries K02.9 [facility] [address] [id number] Jan, Caries K02.9 [facility] [address] [id number] [address] [place] [address] Oct, Foreign body in subcutaneous tissue T14.8XXA [facility] [address] [id number] [address] [place] [phone] Sep, Chronic atrial fibrillation I48.2 ; Non-ischemic cardiomyopathy I42.8 ; Anoxic brain injury G93.1 and Adjustment disorder with depressed mood F43.21 [facility] [address] [id number] [address] [place] [phone] Aug, [facility] [address] [id number] [address] [place] [phone] July, [facility] [address] [id number] [address] [place] [address] July, [facility] [address] [id number] [address] [place] [address] Jun, Adjustment disorder with dep ressed mood F43.21 [facility] [address] [id number] [address] [place] [phone] Jun, [facility] [address] [id number] [address] [place] [phone] Jun, [facility] [address] [id number] [address] [place] [phone] May, [facility] [address] [id number] [address] [place] [phone] May, [facility] [address] [id number] [address] [place] [phone] May, [facility] [address] [id number] [address] [place] [phone] May, [facility] [address] [id number] [address] [place] [address] May, History of cardiac arrest Z8 6.74 ; Cardiac defibrillator in place Z95.810 ; Chronic atrial fibrillation I48.2 and Current moderate episode of major depressive disorder without prior episode F32.1 [facility] [address] [id number] [address] [place] [phone] May, [facility] [address] [id number] [address] [place] [phone] Mar, 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 a nticoagulants Z79.01 [facility] [address] [id number] [address] [place] [phone] Mar, [facility] [address] [id number] [address] [place] [phone] Mar, group home (current) use of a nticoagulants Z79.01 [facility] [address] [id number] [address] [place] [phone] Feb, Afib I48.91 [place] [address] [facility] [id number] [address] [place] [phone] Feb, group home (current) use of a nticoagulants Z79.[address] [facility] [address] [facility] [id number] [address] [place] [phone] Jan, Other viral agents as the ca use of diseases classified elsewhere B97.89 ; Acute upper respiratory infection, unspecified J06.9 and Body aches R52 [place] [address] [facility] [id number] [address] [place] [phone] Jan, Afib I48.91 [place] [address] [facility] [id number] [address] [place] [address] Jan, Afib I48.91 and 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 (c urrent) use of anticoagulants Z79.01 [facility] [address] [id number] [address] [place] [address] Dec, Afib I48.91 [place] [address] [facility] [id number] [address] [place] [address] 02 Dec, 2016 Chronic atrial fibrillation I48.2 [place] [address] [facility] [id number] [address] [place] [phone] Nov, Hypertension I10 [place] [address] [facility] [id number] [address] [place] [address] Oct, Chronic atrial fibrillation I48.2 [address] [address] [id number] [address] [place] [phone] Oct, group home (current) use of a nticoagulants Z79.01 [facility] [address] [facility] [id number] [address] [place] [address] Oct, Chronic atrial fibrillation I48.2 [place] [address] [facility] [id number] [address] [place] [address] Oct, Chronic atrial fibrillation I48.2 [place] [address] [facility] [id number] [address] [place] [address] Sep, group home (current) use of a nticoagulants Z79.01 ; Hypertension I10 ; Cardiomyopathy I42.9 and Afib I48.91 [place] [address] [facility] [id number] [address] [place] [address] Sep, group home (current) use of a nticoagulants Z79.01 ; Hypertension I10 ; Cardiomyopathy I42.9 and Afib I48.91 [place] [address] [id number] [address] [place] [address] Aug, 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 a nticoagulants Z79.01 [address] [id number] [address] [place] [phone] Aug, 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 a nticoagulants Z79.01 [place] [address] [id number] [address] [place] [address] Aug, 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 a nticoagulants Z79.01 [place] [address] [facility] [id number] [address] [place] [phone] July, group home (current) use of a nticoagulants Z79.01 [place] [address] [facility] [id number] [address] [place] [address] Jun, group home (current) use of a nticoagulants Z79.01 [facility] [address] [id number] [address] [place] [address] Jun, 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 a nticoagulants Z79.01 [facility] [address] [id number] [address] [place] [address] May, Chronic atrial fibrillation I48.2 [address] [address] [address] [id number] [address] [place] [phone] May, [place] [address] [id number] [address] [place] [phone] May, 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 a nticoagulants Z79.01 [place] [address] [facility] [id number] [address] [place] [phone] 10 May, 2016 group home (current) use of a nticoagulants Z79.01 [place] [address] [facility] [id number] [address] [place] [address] 10 May, 2016 Afib I48.91 ; Non-ischemic c ardiomyopathy I42.8 ; Hypotension, unspecified hypotension type I95.9 and Heart palpitations R00.2 [place] [address] [facility] [id number] [address] [place] [address] 16 Apr, 2016 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 a nticoagulants Z79.01 [address] [address] [id number] [address] [place] [address] Apr, 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 a nticoagulants Z79.01 [place] [address] [facility] [id number] [address] [place] [address] Mar, 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 a nticoagulants Z79.01 [place] [address] [facility] [id number] [address] [place] [address] Feb, 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 a nticoagulants Z79.01 [place] [address] [facility] [id number] [address] [place] [address] Feb, group home (current) use of a nticoagulants Z79.01 [facility] [address] [facility] [id number] [address] [place] [address] Jan, 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 a nticoagulants Z79.01 [place] [address] [facility] [id number] [address] [place] [address] Jan, 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 a nticoagulants Z79.01 [place] [address] [facility] [id number] [address] [place] [address] Dec, group home (current) use of a nticoagulants Z79.01 [place] [address] [facility] [id number] [address] [place] [address] Dec, 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 a nticoagulants Z79.01 [facility] [address] [facility] [id number] [address] [place] [address] Oct, group home (current) use of a nticoagulants Z79.01 [place] [address] [facility] [id number] [address] [place] [address] Oct, group home (current) use of a nticoagulants Z79.01 [place] [address] [facility] [id number] [address] [place] [address] Oct, Afib I48.91 ; Cardiomyopathy I42.9 ; Palpitations R00.2 and Non- rheumatic tricuspid valve insufficiency I36.1 [facility] [address] [facility] [id number] [address] [place] [address] Sep, Chronic atrial fibrillation I48.2 ; 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 anticoagulants Z79.01 ; Cardiomyopathy I42.9 and Hypertension I10 [facility] [address] [facility] [id number] [address] [place] [address] Aug, Allergic rhinitis, unspecifi ed allergic rhinitis type J30.9 [facility] [address] [id number] [address] [place] [address] Aug, 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 a nticoagulants Z79.01 [facility] [address] [id number] [address] [place] [phone] Jun, 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 a nticoagulants Z79.01 [place] [address] [id number] [address] [place] [address] Jun, 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 a nticoagulants Z79.01 [place] [address] [id number] [address] [place] [address] Jun, group home (current) use of a nticoagulants Z79.01 [place] [address] [facility] [id number] [address] [place] [address] Jun, [place] [address] [facility] [id number] [address] [place] [address] May, Encounter for long-term (cur rent) use of anticoagulants V58.61 [place] [address] [facility] [id number] [address] [place] [address] May, Encounter for long-term (cur rent) use of anticoagulants V58.61 [place] [address] [facility] [id number] [address] [place] [address] May, Encounter for long-term (cur rent) use of anticoagulants V58.61 [place] [address] [id number] [address] [place] [address] Apr, Encounter for long-term (cur rent) use of anticoagulants V58.61 [place] [address] [facility] [id number] [address] [place] [address] Apr, group home (current) use of a nticoagulants Z79.01 [place] [address] [facility] [id number] [address] [place] [address] Apr, Afib I48.91 ; Hypertension I 10 ; Cardiomyopathy I42.9 and Palpitations R00.2 [place] [address] [place] [address] Mar, group home (current) use of a nticoagulants Z79.01 [place] [address] [place] [id number] [address] [place] [address] Mar, Encounter for long-term (cur rent) use of anticoagulants V58.61 [place] [address] [facility] [id number] [address] [place] [address] Mar, Encounter for long-term (cur rent) use of anticoagulants V58.61 [place] [address] [place] [id number] [address] [place] [address] Mar, 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 a nticoagulants Z79.01 and Encounter for therapeutic drug level monitoring Z51.81 [place] [address] [place] [address] Feb, group home (current) use of a nticoagulants Z79.01 and Encounter for therapeutic drug level monitoring Z51.81 [place] [address] [place] [address] Feb, Encounter for long-term (cur rent) use of anticoagulants V58.61 [place] [address] [facility] [id number] [address] [place] [address] Feb, [place] [address] [facility] [id number] [address] [place] [address] Feb, Encounter for long-term (cur rent) use of anticoagulants V58.61 [place] [address] [facility] [id number] [address] [place] [address] Feb, Encounter for therapeutic dr ug level monitoring Z51.81 [place] [address] [facility] [id number] [address] [place] [address] Jan, [place] [address] [id number] [address] [place] [address] Dec, Encounter for long-term (cur rent) use of anticoagulants V58.61 and Atrial fibrillation 427.31 [place] [address] [id number] [address] [place] [address] Dec, Chest wall muscle strain S29 .011A [place] [address] [id number] [address] [place] [address] Nov, Encounter for long-term (cur rent) use of anticoagulants V58.61 and Atrial fibrillation 427.31 [place] [address] [id number] [address] [place] [address] Nov, Atrial fibrillation 427.31 [place] [address] [id number] [address] [place] [address] Nov, [place] [address] [id number] [address] [place] [address] Nov, Atrial fibrillation 427.31 [place] [address] [id number] [address] [place] [address] Nov, Atrial fibrillation 427.31 [place] [address] [id number] [address] [place] [address] Oct, Encounter for long-term (cur rent) use of anticoagulants V58.61 [place] [address] [id number] [address] [place] [address] Sep, Encounter for long-term (cur rent) use of anticoagulants V58.61 [place] [address] [id number] [address] [place] [address] Aug, Encounter for long-term (cur rent) use of anticoagulants V58.61 [place] [address] [id number] [address] [place] [address] July, [place] [address] [id number] [address] [place] [address] July, [facility] [address] [id number] [address] [place] [address], [place] [address] July, [facility] [address] [id number] [address] [place] [address], [place] [address] 14 Jun, 2014 [facility] [address] [id number] [address] [place] [address], [place] [address] Jun, [facility] [address] [id number] [address] [place] [address], [place] [address] May, [facility] [address] [id number] [address] [place] [address], [place] [address] May, [facility] [address] [id number] [address] [place] [address], [place] [address] May, [facility] [address] [id number] [address] [place] [address], [place] [address] 18 Apr, 2014 [facility] [address] [id number] [address] [place] [address], [place] [address] Apr, [facility] [address] [id number] [address] [place] [address], [place] [address] Apr, [facility] [address] [id number] [address] [place] [address], [place] [address] Apr, [facility] [address] [id number] [address] [place] [address], [place] [address] Apr, [facility] [address] [id number] [address] [place] [address], [place] [address] Apr, [facility] [address] [id number] [address] [place] [address], [place] [address] Apr, [facility] [address] [id number] [address] [place] [address], [place] [address] Mar, [facility] [address] [id number] [address] [place] [address], [place] [address] Mar, [facility] [address] [id number] [address] [place] [address], [place] [address] 14 Mar, 2014 [facility] [address] [id number] [address] [place] [address], [place] [address] 14 Mar, 2014 [facility] [address] [id number] [address] [place] [address], [place] [address] 13 Mar, 2014 [facility] [address] [id number] [address] [place] [address], [place] [address] Mar, [facility] [address] [id number] [address] [place] [address], [place] [address] Mar, [facility] [address] [id number] [address] [place] [address], [place] [address] Mar, [facility] [address] [id number] [address] [place] [address], [place] [address] Feb, [facility] [address] [id number] [address] [place] [address], [place] [address] Feb, [facility] [address] [id number] [address] [place] [address], [place] [address] Feb, [facility] [address] [id number] [address] [place] [address], [place] [address] Feb, [facility] [address] [id number] [address] [place] [address], [place] [address] Feb, [facility] [address] [id number] [address] [place] [address], [place] [address] Feb, [facility] [address] [id number] [address] [place] [address], [place] [address] Jan, [facility] [address] [id number] [address] [place] [address], [place] [address] Jan, [facility] [address] [id number] [address] [place] [address], [place] [address] Jan, [facility] [address] [id number] [address] [place] [address], [place] [address] Jan, [facility] [address] [id number] [address] [place] [address], [place] [address] Jan, [facility] [address] [id number] [address] [place] [address], [place] [address] Jan, [facility] [address] [id number] [address] [place] [address], [place] [address] Dec, [facility] [address] [id number] [address] [place] [address], [place] [address] Dec, [facility] [address] [id number] [address] [place] [address], [place] [address] Dec, [facility] [address] [id number] [address] [place] [address], [place] [address] Dec, [facility] [address] [id number] [address] [place] [address], [place] [address] Nov, [facility] [address] [id number] [address] [place] [address], [place] [address] Nov, [facility] [address] [id number] [address] [place] [address], [place] [address] Oct, [facility] [address] [id number] [address] [place] [address], [place] [address] Oct, [facility] [address] [id number] [address] [place] [phone] Oct, [facility] [address] [id number] [address] [place] [phone] Oct, [facility] [address] [id number] [address] [place] [address], [place] [address] Oct, [facility] [address] [id number] [address] [place] [address], [place] [address] Oct, [facility] [address] [id number] [address] [place] [address], [place] [address] Sep, [facility] [address] [id number] [address] [place] [phone] Sep, [facility] [address] [id number] [facility] [place] [address] Sep, [facility] [address] [id number] [address] [place] [address], [place] [address] Sep, [facility] [address] [id number] [address] [place] [address], [place] [address] Sep, [facility] [address] [id number] [address] [place] [address], [place] [address] Sep, [facility] [address] [id number] [address] [place] [address], [place] [address] Sep, [facility] [address] [id number] [address] [place] [address], [place] [address] Sep, [facility] [address] [id number] [address] [place] [address], [place] [address] Sep, [facility] [address] [id number] [address] [place] [address], [place] [address] Sep, [facility] [address] [id number] [address] [place] [address], [place] [address] Sep, [facility] [address] [id number] [address] [place] [address], [place] [address] Sep, [facility] [address] [id number] [address] [place] [address], [place] [address] Sep, [facility] [address] [id number] [address] [place] [address], [place] [address] Sep, [facility] [address] [id number] [address] [place] [address], [place] [address] Feb, [facility] [address] [id number] [address] [place] [address], [place] [address] Feb, [facility] [address] [id number] [address] [place] [address], [place] [address] July, [facility] [address] [facility] [id number] [address] [place] [phone] Apr, [facility] [address] [facility] [id number] [address] [place] [phone] Apr, [facility] [address] [facility] [id number] [address] [place] [phone] Apr, [facility] [address] [facility] [id number] [address] [place] [phone] Apr, IMMUNIZATIONS No Known Immunizations SOCIAL HISTORY Never Assessed REASON FOR VISIT PLAN OF CARE VITAL SIGNS MEDICATIONS Unknown Medications RESULTS No Results PROCEDURES Procedure Date Ordered Result Body Site PROTHROMBIN TIME October 17, 2013 VENIPUNCT, ROUTINE* October 17, 2013 INSTRUCTIONS MEDICATIONS ADMINISTERED No Known Medications MEDICAL (GENERAL) HISTORY Type Description Date Medical History Atrial fibrillation Medical History hx of c. diff Medical History Stress test performed; EF 25% Last test 2015 was at 60% Medical History Palpitations Medical History Cardiac Arrest with CPR and Intubation with ET tube and transferred to [facility] Trach placed 03/2017 due to A Fib resulting in anoxic brain injury and memory loss Medical History 03/02-03/03/18 heart surgery Surgical History Defibrillation placed 2017 Surgical History Trach/PEG Tube placed and removed [facility] a fter Intubation 2017 Surgical History heart surgery 2018 Surgical History heart surgery 03/02-03/03/18 Hospitalization History ICU for Afib 09/2013 Hospitalization History Admitted to Transferred to [facility] ICU/ Rehab 03/2017 Hospitalization History Coded, Defribrillated and ET tube placed for ventillation and transferred to [facility] 03/2017 Hospitalization History surgery 09/29/2017 Hospitalization History heart surgery 03/02-03/03/18
--- OUTSIDE RECORDS SUMMARY | 2019-10-28 09:55 | XMS REPORT ---
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 Name Role Phone KARI AMADOR Unavailable PROBLEMS Type Condition ICD9-CM Code [id number] Code Onset Dates Condition S tatus SNOMED Code Problem Cardiomyopathy I42.9 Active 26557 001 Problem shelter (current) use of anticoagulants Z79.01 Active 620926473 Problem Chronic atrial fibrillation I48.2 Ac tive 446370553 Problem History of VT (myocardial infarction) I25.2 Active 786544814 Problem Anoxic brain injury G93.1 Active 683676650 Problem Non morbid obesity E66.9 Active 4 74863908 Problem Non-ischemic cardiomyopathy I42.8 Ac tive 24669532 Problem History of cardiac arrest Z86.74 Acti ve 132415814 Problem Cardiac defibrillator in place Z95.810 Active 315454181 Problem Adjustment disorder with depressed mood F43.21 Active 48394027 ALLERGIES No Information ENCOUNTERS Encounter Location Date Diagnosis [facility] [address] [id number] [address] [place] [phone] Jun, [id number] [place] [phone] May, [facility] [address] [id number] [address] [place] [phone] May, Cardiomyopathy I42.9 and Non morbid obesity E66.9 [facility] [address] [id number] [address] [place] [phone] Apr, Fatigue, unspecified type R5 3.83 ; shelter (current) use of anticoagulants Z79.01 ; Cardiac defibrillator in place Z95.810 and Anoxic brain injury G93.1 [facility] [address] [id number] [address] [place] [phone] Mar, Acute otitis externa of left ear, unspecified type H60.502 [facility] [address] [facility] [id number] [address] [place] [phone] Jan, Dermoid cyst D36.9 and Encou nter for immunization Z23 [facility] [address] [id number] [address] [place] [phone] Dec, [facility] [address] [facility] [id number] [address] [place] [phone] Dec, [facility] [address] [facility] [id number] [address] [place] [phone] Dec, Bronchitis J40 [facility] [address] [facility] [id number] [address] [place] [phone] Dec, [facility] [address] [place] [address] [phone] Nov, Caries K02.9 [facility] [address] [id number] [place] [address] [phone] Sep, Caries K02.9 [facility] [address] [id number] [place] [address] [phone] Aug, Caries K02.9 [facility] [address] [id number] [address] [place] [address] [id number] July, Caries K02.9 [facility] [address] [id number] [place] [address] [phone] July, Dental examination Z01.20 [facility] [address] [id number] [address] [place] [address] [id number] July, Caries K02.9 [facility] [address] [id number] [address] [place] [phone] Jun, [facility] [address] [id number] [address] [place] [address] [phone] Jun, Caries K02.9 [facility] [address] [facility] [id number] [address] [place] [phone] Jun, Chronic atrial fibrillation I48.2 ; shelter (current) use of anticoagulants Z79.01 ; Cardiomyopathy I42.9 and Cardiac defibrillator in place Z95.810 [facility] [address] [facility] [id number] [place] [address] [phone] May, Caries K02.9 [facility] [address] [facility] [id number] [place] [phone] Apr, History of VT (myocardial in farction) I25.2 and SOB (shortness of breath) R06.02 [facility] [address] [facility] [id number] [place] [phone] Apr, [facility] [address] [id number] [place] [phone] Apr, [facility] [address] [address] Apr, Canker sore K12.0 [facility] [address] [id number] Apr, Dental examination Z01.20 [facility] [address] [id number] Mar, Caries K02.9 [facility] [address] [id number] [address] [place] [phone] Feb, Surgery follow-up Z09 [facility] [address] [id number] Feb, Caries K02.9 [facility] [address] [id number] Jan, Caries K02.9 [facility] [address] [id number] [address] [place] [phone] Oct, Foreign body in subcutaneous tissue T14.8XXA [facility] [address] [id number] [address] [place] [phone] Sep, Chronic atrial fibrillation I48.2 ; Non-ischemic cardiomyopathy I42.8 ; Anoxic brain injury G93.1 and Adjustment disorder with depressed mood F43.21 [facility] [address] [id number] [address] [place] [phone] Aug, [facility] [address] [id number] [address] [place] [phone] July, [facility] [address] [id number] [address] [place] [phone] July, [facility] [address] [id number] [address] [place] [phone] Jun, Adjustment disorder with dep ressed mood F43.21 [facility] [address] [id number] [address] [place] [phone] Jun, [facility] [address] [id number] [address] [place] [phone] Jun, [facility] [address] [id number] [address] [place] [phone] May, [facility] [address] [id number] [address] [place] [phone] May, [facility] [address] [id number] [address] [place] [phone] May, [facility] [address] [id number] [address] [place] [phone] May, [facility] [address] [id number] [address] [place] [phone] May, History of cardiac arrest Z8 6.74 ; Cardiac defibrillator in place Z95.810 ; Chronic atrial fibrillation I48.2 and Current moderate episode of major depressive disorder without prior episode F32.1 [facility] [address] [id number] [address] [place] [phone] May, [facility] [address] [id number] [address] [place] [phone] Mar, 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 [facility] [address] [id number] [address] [place] [phone] Mar, [facility] [address] [id number] [address] [place] [phone] Mar, shelter (current) use of a nticoagulants Z79.01 [facility] [address] [id number] [address] [place] [phone] Feb, Afib I48.91 [place] [address] [facility] [id number] [address] [place] [phone] Feb, shelter (current) use of a nticoagulants Z79.01 [facility] [address] [facility] [id number] [address] [place] [phone] Jan, Other viral agents as the ca use of diseases classified elsewhere B97.89 ; Acute upper respiratory infection, unspecified J06.9 and Body aches R52 [place] [address] [facility] [id number] [address] [place] [phone] Jan, Afib I48.91 [place] [address] [facility] [id number] [address] [place] [phone] Jan, Afib I48.91 and 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 (c urrent) use of anticoagulants Z79.01 [facility] [address] [id number] [address] [place] [phone] Dec, Afib I48.91 [place] [address] [facility] [id number] [address] [place] [phone] 02 Dec, 2016 Chronic atrial fibrillation I48.2 [place] [address] [facility] [id number] [address] [place] [phone] Nov, Hypertension I10 [place] [address] [facility] [id number] [address] [place] [phone] Oct, Chronic atrial fibrillation I48.2 [place] [address] [id number] [address] [place] [phone] Oct, shelter (current) use of a nticoagulants Z79.01 [facility] [address] [facility] [id number] [address] [place] [phone] Oct, Chronic atrial fibrillation I48.2 [place] [address] [facility] [id number] [address] [place] [phone] Oct, Chronic atrial fibrillation I48.2 [place] [address] [facility] [id number] [address] [place] [phone] Sep, shelter (current) use of a nticoagulants Z79.01 ; Hypertension I10 ; Cardiomyopathy I42.9 and Afib I48.91 [place] [address] [facility] [id number] [address] [place] [phone] Sep, shelter (current) use of a nticoagulants Z79.01 ; Hypertension I10 ; Cardiomyopathy I42.9 and Afib I48.91 [address] [address] [id number] [address] [place] [phone] Aug, 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 [place] [address] [id number] [address] [place] [phone] Aug, 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 [place] [address] [id number] [address] [place] [phone] Aug, 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 [place] [address] [facility] [id number] [address] [place] [phone] July, shelter (current) use of a nticoagulants Z79.01 [place] [address] [facility] [id number] [address] [place] [phone] Jun, shelter (current) use of a nticoagulants Z79.01 [facility] [address] [id number] [address] [place] [phone] Jun, 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 [facility] [address] [id number] [address] [place] [phone] May, Chronic atrial fibrillation I48.2 [address] [address] [id number] [address] [place] [phone] May, [place] [address] [id number] [address] [place] [phone] May, 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 [place] [address] [facility] [id number] [address] [place] [phone] 10 May, 2016 shelter (current) use of a nticoagulants Z79.01 [place] [address] [facility] [id number] [address] [place] [phone] 10 May, 2016 Afib I48.91 ; Non-ischemic c ardiomyopathy I42.8 ; Hypotension, unspecified hypotension type I95.9 and Heart palpitations R00.2 [place] [address] [facility] [id number] [address] [place] [phone] 16 Apr, 2016 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 [place] [address] [id number] [address] [place] [phone] Apr, 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 [place] [address] [facility] [id number] [address] [place] [phone] Mar, 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 [place] [address] [facility] [id number] [address] [place] [phone] Feb, 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 [place] [address] [facility] [id number] [address] [place] [phone] Feb, shelter (current) use of a nticoagulants Z79.01 [facility] [address] [facility] [id number] [address] [place] [phone] Jan, 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 [place] [address] [facility] [id number] [address] [place] [phone] Jan, 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 [place] [address] [facility] [id number] [address] [place] [phone] Dec, shelter (current) use of a nticoagulants Z79.01 [place] [address] [facility] [id number] [address] [place] [phone] Dec, 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 [facility] [address] [facility] [id number] [address] [place] [phone] Oct, shelter (current) use of a nticoagulants Z79.01 [place] [address] [facility] [id number] [address] [place] [phone] Oct, shelter (current) use of a nticoagulants Z79.01 [place] [address] [facility] [id number] [address] [place] [phone] Oct, Afib I48.91 ; Cardiomyopathy I42.9 ; Palpitations R00.2 and Non- rheumatic tricuspid valve insufficiency I36.1 [facility] [address] [facility] [id number] [address] [place] [phone] Sep, Chronic atrial fibrillation I48.2 ; 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.01 ; Cardiomyopathy I42.9 and Hypertension I10 [facility] [address] [facility] [id number] [address] [place] [phone] Aug, Allergic rhinitis, unspecifi ed allergic rhinitis type J30.9 [facility] [address] [id number] [address] [place] [phone] Aug, 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 [facility] [address] [id number] [address] [place] [phone] Jun, 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 [place] [address] [id number] [address] [place] [phone] Jun, 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 [place] [address] [id number] [address] [place] [phone] Jun, shelter (current) use of a nticoagulants Z79.01 [place] [address] [facility] [id number] [address] [place] [phone] Jun, [place] [address] [facility] [id number] [address] [place] [phone] May, Encounter for long-term (cur rent) use of anticoagulants V58.61 [place] [address] [facility] [id number] [address] [place] [phone] May, Encounter for long-term (cur rent) use of anticoagulants V58.61 [place] [address] [facility] [id number] [address] [place] [phone] May, Encounter for long-term (cur rent) use of anticoagulants V58.61 [place] [address] [id number] [address] [place] [phone] Apr, Encounter for long-term (cur rent) use of anticoagulants V58.61 [place] [address] [facility] [id number] [address] [place] [phone] Apr, shelter (current) use of a nticoagulants Z79.01 [place] [address] [facility] [id number] [address] [place] [phone] Apr, Afib I48.91 ; Hypertension I 10 ; Cardiomyopathy I42.9 and Palpitations R00.2 [place] [id number] [place] [address] Mar, shelter (current) use of a nticoagulants Z79.01 [place] [address] [place] [id number] [address] [place] [phone] Mar, Encounter for long-term (cur rent) use of anticoagulants V58.61 [place] [address] [facility] [id number] [address] [place] [phone] Mar, Encounter for long-term (cur rent) use of anticoagulants V58.61 [place] [address] [place] [id number] [address] [place] [phone] Mar, 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 and Encounter for therapeutic drug level monitoring Z51.81 [place] [address] [place] [phone] Feb, shelter (current) use of a nticoagulants Z79.01 and Encounter for therapeutic drug level monitoring Z51.81 [place] [address] [place] [phone] Feb, Encounter for long-term (cur rent) use of anticoagulants V58.61 [place] [address] [facility] [id number] [address] [place] [phone] Feb, [place] [address] [facility] [id number] [address] [place] [phone] Feb, Encounter for long-term (cur rent) use of anticoagulants V58.61 [place] [address] [facility] [id number] [address] [place] [phone] Feb, Encounter for therapeutic dr ug level monitoring Z51.81 [place] [address] [facility] [id number] [address] [place] [phone] Jan, [place] [address] [id number] [address] [place] [phone] Dec, Encounter for long-term (cur rent) use of anticoagulants V58.61 and Atrial fibrillation 427.31 [place] [address] [id number] [address] [place] [phone] Dec, Chest wall muscle strain S29 .011A [place] [address] [id number] [address] [place] [phone] Nov, Encounter for long-term (cur rent) use of anticoagulants V58.61 and Atrial fibrillation 427.31 [place] [address] [id number] [address] [place] [phone] Nov, Atrial fibrillation 427.31 [place] [address] [id number] [address] [place] [phone] Nov, [place] [address] [id number] [address] [place] [phone] Nov, Atrial fibrillation 427.31 [place] [address] [id number] [address] [place] [address] Nov, Atrial fibrillation 427.31 [place] [address] [id number] [address] [place] [phone] Oct, Encounter for long-term (cur rent) use of anticoagulants V58.61 [place] [address] [id number] [address] [place] [phone] Sep, Encounter for long-term (cur rent) use of anticoagulants V58.61 [place] [address] [id number] [address] [place] [phone] Aug, Encounter for long-term (cur rent) use of anticoagulants V58.61 [place] [address] [id number] [address] [place] [phone] July, [place] [address] [id number] [address] [place] [phone] July, [facility] [address] [id number] [address] [place] [address], [place] [address] July, [facility] [address] [id number] [address] [place] [address], [place] [address] 14 Jun, 2014 [facility] [address] [id number] [address] [place] [address], [place] [address] Jun, [facility] [address] [id number] [address] [place] [address], [place] [address] May, [facility] [address] [id number] [address] [place] [address], [place] [address] May, [facility] [address] [id number] [address] [place] [address], [place] [address] May, [facility] [address] [id number] [address] [place] [address], [place] [address] 18 Apr, 2014 [facility] [address] [id number] [address] [place] [address], [place] [address] Apr, [facility] [address] [id number] [address] [place] [address], [place] [address] Apr, [facility] [address] [id number] [address] [place] [address], [place] [address] Apr, [facility] [address] [id number] [address] [place] [address], [place] [address] Apr, [facility] [address] [id number] [address] [place] [address], [place] [address] Apr, [facility] [address] [id number] [address] [place] [address], [place] [address] Apr, [facility] [address] [id number] [address] [place] [address], [place] [address] Mar, [facility] [address] [id number] [address] [place] [address], [place] [address] Mar, [facility] [address] [id number] [address] [place] [address], [place] [address] 14 Mar, 2014 [facility] [address] [id number] [address] [place] [address], [place] [address] 14 Mar, 2014 [facility] [address] [id number] [address] [place] [address], [place] [address] 13 Mar, 2014 [facility] [address] [id number] [address] [place] [address], [place] [address] Mar, [facility] [address] [id number] [address] [place] [address], [place] [address] Mar, [facility] [address] [id number] [address] [place] [address], [place] [address] Mar, [facility] [address] [id number] [address] [place] [address], [place] [address] Feb, [facility] [address] [id number] [address] [place] [address], [place] [address] Feb, [facility] [address] [id number] [address] [place] [address], [place] [address] Feb, [facility] [address] [id number] [address] [place] [address], [place] [address] Feb, [facility] [address] [id number] [address] [place] [address], [place] [address] Feb, [facility] [address] [id number] [address] [place] [address], [place] [address] Feb, [facility] [address] [id number] [address] [place] [address], [place] [address] Jan, [facility] [address] [id number] [address] [place] [address], [place] [address] Jan, [facility] [address] [id number] [address] [place] [address], [place] [address] Jan, [facility] [address] [id number] [address] [place] [address], [place] [address] Jan, [facility] [address] [id number] [address] [place] [address], [place] [address] Jan, [facility] [address] [id number] [address] [place] [address], [place] [address] Jan, [facility] [address] [id number] [address] [place] [address], [place] [address] Dec, [facility] [address] [id number] [address] [place] [address], [place] [address] Dec, [facility] [address] [id number] [address] [place] [address], [place] [address] Dec, [facility] [address] [id number] [address] [place] [address], [place] [address] Dec, [facility] [address] [id number] [address] [place] [address], [place] [address] Nov, [facility] [address] [id number] [address] [place] [address], [place] [address] Nov, [facility] [address] [id number] [address] [place] [address], [place] [address] Oct, [facility] [address] [id number] [address] [place] [address], [place] [address] Oct, [facility] [address] [id number] [address] [place] [address] Oct, [facility] [address] [id number] [address] [place] [address] Oct, [facility] [address] [id number] [address] [place] [address], [place] [address] Oct, [facility] [address] [id number] [address] [place] [address], [place] [address] Oct, [facility] [address] [id number] [address] [place] [address], [place] [address] Sep, [facility] [address] [id number] [address] [place] [address] Sep, [facility] [address] [id number] [facility] [place] [address] Sep, [facility] [address] [id number] [address] [place] [address], [place] [address] Sep, [facility] [address] [id number] [address] [place] [address], [place] [address] Sep, [facility] [address] [id number] [address] [place] [address], [place] [address] Sep, [facility] [address] [id number] [address] [place] [address], [place] [address] Sep, [facility] [address] [id number] [address] [place] [address], [place] [address] Sep, [facility] [address] [id number] [address] [place] [address], [place] [address] Sep, [facility] [address] [id number] [address] [place] [address], [place] [address] Sep, [facility] [address] [id number] [address] [place] [address], [place] [address] Sep, [facility] [address] [id number] [address] [place] [address], [place] [address] Sep, [facility] [address] [id number] [address] [place] [address], [place] [address] Sep, [facility] [address] [id number] [address] [place] [address], [place] [address] Sep, [facility] [address] [id number] [address] [place] [address], [place] [address] Feb, [facility] [address] [id number] [address] [place] [address], [place] [address] Feb, [facility] [address] [id number] [address] [place] [address], [place] [address] July, [facility] [address] [facility] [id number] [address] [place] [address] Apr, [facility] [address] [facility] [id number] [address] [place] [address] Apr, [facility] [address] [facility] [id number] [address] [place] [address] Apr, [facility] [address] [facility] [id number] [address] [place] [address] Apr, IMMUNIZATIONS No Known Immunizations SOCIAL HISTORY [...] Intubation with ET tube and transferred to [facility] Trach placed 03/2017 due to A Fib resulting in anoxic brain injury and memory loss Medical History 03/02-03/03/18 heart surgery Surgical History Defibrillation placed 2017 Surgical History Trach/PEG Tube placed and removed [facility] a fter Intubation 2017 Surgical History heart surgery 2018 Surgical History heart surgery 03/02-03/03/18 Hospitalization History ICU for Afib 09/2013 Hospitalization History Admitted to Transferred to [facility] ICU/ Rehab 03/2017 Hospitalization History Coded, Defribrillated and ET tube placed for ventillation and transferred to [facility] 03/2017 Hospitalization History surgery 09/29/2017 Hospitalization History heart surgery 03/02-03/03/18
--- OUTSIDE RECORDS SUMMARY | 2019-10-28 09:55 | XMS REPORT ---
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 Name Role Phone Migration, Doctor Unavailable Unavailable PROBLEMS Type Condition ICD9-CM Code DCJ39-TA Code Onset Dates Condition S tatus SNOMED Code Problem Cardiomyopathy I42.9 Active 40768 001 Problem snf (current) use of anticoagulants Z79.01 Active 917352196 Problem Chronic atrial fibrillation I48.2 Ac tive 382481125 Problem History of [place] (myocardial infarction) I25.2 Active 630734061 Problem Anoxic brain injury G93.1 Active 121974754 Problem Non morbid obesity E66.9 Active 4 27773669 Problem Non-ischemic cardiomyopathy I42.8 Ac tive 42859361 Problem History of cardiac arrest Z86.74 Acti ve 943836273 Problem Cardiac defibrillator in place Z95.810 Active 098219370 Problem Adjustment disorder with depressed mood F43.21 Active 78365108 ALLERGIES No Information ENCOUNTERS Encounter Location Date Diagnosis [place] [address] [address] May, Cardiomyopathy I42.9 and Non morbid obes ity E66.9 [facility] [address] [address] Apr, Fatigue, unspecified type R53.83 ; emt intermediate (current) use of anticoagulants Z79.01 ; Cardiac defibrillator in place Z95.810 and Anoxic brain injury G93.1 [facility] [address] [facility] [id number] [address] [place] [address] Mar, Acute otitis externa of left ear, unspecified type H60.502 [facility] [address] [address] Jan, Dermoid cyst D36.9 and Encounter for imm unization Z23 [place] [address] [address] Dec, [facility] [address] [address] Dec, [facility] [address] [address] Dec, Bronchitis J40 [facility] [address] [address] Dec, [facility] [address] [id number] Nov, Caries K02.9 [facility] [address] [id number] Sep, Caries K02.9 [facility] [address] [id number] Aug, Caries K02.9 [facility] [address] [id number] July, Caries K02.9 [facility] [address] [id number] July, Dental examination Z01.20 [facility] [address] [id number] July, Caries K02.9 [facility] [address] [address] Jun, [facility] [address] [id number] Jun, Caries K02.9 [facility] [address] [address] Jun, Chronic atrial fibrillation I48.2 ; emt intermediate (current) use of anticoagulants Z79.01 ; Cardiomyopathy I42.9 and Cardiac defibrillator in place Z95.810 [facility] [address] [id number] May, Caries K02.9 [facility] [address] [address] Apr, History of LA (myocardial infarction) I2 5.2 and SOB (shortness of breath) R06.02 [facility] [address] [address] Apr, [facility] [address] [address] Apr, [facility] [address] [address] Apr, Canker sore K12.0 [facility] [address] [id number] Apr, Dental examination Z01.20 [facility] [address] [id number] Mar, Caries K02.9 [place] [address] [address] Feb, Surgery follow-up Z09 [facility] [address] [id number] Feb, Caries K02.9 [facility] [address] [id number] Jan, Caries K02.9 [place] [address] [address] Oct, Foreign body in subcutaneous tissue T14. 8XXA [place] [address] [address] Sep, Chronic atrial fibrillation I48.2 ; Non- ischemic cardiomyopathy I42.8 ; Anoxic brain injury G93.1 and Adjustment disorder with depressed mood F43.21 [facility] [address] [address] Aug, [place] [address] [address] July, [facility] [address] [address] July, [facility] [address] [address] 13 Jun, 2017 Adjustment disorder with depressed mood F43.21 [facility] [address] [address] Jun, [facility] [address] [address] Jun, [facility] [address] [address] May, [facility] [address] [address] May, [facility] [address] [address] May, [facility] [address] [address] May, [place] [address] [address] May, History of cardiac arrest Z86.74 ; Cardi ac defibrillator in place Z95.810 ; Chronic atrial fibrillation I48.2 and Current moderate episode of major depressive disorder without prior episode F32.1 [place] [address] [address] May, [facility] [address] [address] Mar, emt intermediate (current) use of anticoagulant s Z79.01 [place] [address] [address] Mar, [facility] [address] [address] Mar, emt intermediate (current) use of anticoagulant s Z79.01 [place] [address] [address] Feb, Afib I48.91 [place] [address] [address] Feb, emt intermediate (current) use of anticoagulant s Z79.01 [facility] [address] [facility] [id number] [address] [place] [address] Jan, Other viral agents as the ca use of diseases classified elsewhere B97.89 ; Acute upper respiratory infection, unspecified J06.9 and Body aches R52 [place] [address] [address] Jan, Afib I48.91 [place] [address] [address] Jan, Afib I48.91 and snf (current) use of anticoagulants Z79.01 [place] [address] [address] Dec, Afib I48.91 [place] [address] [address] Dec, Chronic atrial fibrillation I48.2 [place] [address] [address] Nov, Hypertension I10 [place] [address] [address] Oct, Chronic atrial fibrillation I48.2 [place] [address] [address] Oct, snf (current) use of anticoagulant s Z79.01 [place] [address] [address] Oct, Chronic atrial fibrillation I48.2 [place] [address] [address] Oct, Chronic atrial fibrillation I48.2 [place] [address] [address] Sep, snf (current) use of anticoagulant s Z79.01 ; Hypertension I10 ; Cardiomyopathy I42.9 and Afib I48.91 [place] [address] [address] Sep, snf (current) use of anticoagulant s Z79.01 ; Hypertension I10 ; Cardiomyopathy I42.9 and Afib I48.91 [place] [address] [address] Aug, emt intermediate (current) use of anticoagulant s Z79.01 [place] [address] [address] Aug, snf (current) use of anticoagulant s Z79.01 [place] [address] [address] Aug, snf (current) use of anticoagulant s Z79.01 [place] [address] [address] July, emt intermediate (current) use of anticoagulant s Z79.01 [place] [address] [address] Jun, emt intermediate (current) use of anticoagulant s Z79.01 [place] [address] [address] Jun, emt intermediate (current) use of anticoagulant s Z79.01 [place] [address] [address] May, Chronic atrial fibrillation I48.2 [place] [address] [address] 17 May, 2016 [place] [address] [address] May, emt intermediate (current) use of anticoagulant s Z79.01 [place] [address] [address] May, emt intermediate (current) use of anticoagulant s Z79.01 [place] [address] [address] May, Afib I48.91 ; Non-ischemic cardiomyopath y I42.8 ; Hypotension, unspecified hypotension type I95.9 and Heart palpitations R00.2 [place] [address] [address] 16 Apr, 2016 emt intermediate (current) use of anticoagulant s Z79.01 [place] [address] [address] 13 Apr, 2016 snf (current) use of anticoagulant s Z79.01 [place] [address] [address] Mar, snf (current) use of anticoagulant s Z79.01 [place] [address] [address] Feb, snf (current) use of anticoagulant s Z79.01 [place] [address] [address] Feb, snf (current) use of anticoagulant s Z79.01 [place] [address] [address] Jan, snf (current) use of anticoagulant s Z79.01 [place] [address] [address] Jan, emt intermediate (current) use of anticoagulant s Z79.01 [place] [address] [address] Dec, emt intermediate (current) use of anticoagulant s Z79.01 [place] [address] [address] Dec, emt intermediate (current) use of anticoagulant s Z79.01 [place] [address] [address] Oct, emt intermediate (current) use of anticoagulant s Z79.01 [place] [address] [address] Oct, snf (current) use of anticoagulant s Z79.01 [place] [address] [address] Oct, Afib I48.91 ; Cardiomyopathy I42.9 ; Pal pitations R00.2 and Non- rheumatic tricuspid valve insufficiency I36.1 [place] [address] [address] Sep, Chronic atrial fibrillation I48.2 ; emt intermediate (current) use of anticoagulants Z79.01 ; Cardiomyopathy I42.9 and Hypertension I10 [facility] [address] [facility] [id number] [address] [place] [address] Aug, Allergic rhinitis, unspecifi ed allergic rhinitis type J30.9 [place] [address] [address] Aug, emt intermediate (current) use of anticoagulant s Z79.01 [place] [address] [address] Jun, snf (current) use of anticoagulant s Z79.01 [place] [address] [address] Jun, emt intermediate (current) use of anticoagulant s Z79.01 [place] [address] [address] Jun, emt intermediate (current) use of anticoagulant s Z79.01 [place] [address] [address] Jun, [place] [address] [address] May, Encounter for long-term (current) use of anticoagulants V58.61 [place] [address] [address] May, Encounter for long-term (current) use of anticoagulants V58.61 [place] [address] [address] May, Encounter for long-term (current) use of anticoagulants V58.61 [place] [address] [address] Apr, Encounter for long-term (current) use of anticoagulants V58.61 [place] [address] [address] Apr, snf (current) use of anticoagulant s Z79.01 [place] [address] [address] Apr, Afib I48.91 ; Hypertension I10 ; Cardiom yopathy I42.9 and Palpitations R00.[address] [address] Mar, emt intermediate (current) use of anticoagulant s Z79.[address] [address] Mar, Encounter for long-term (current) use of anticoagulants V58.61 [place] [address] [address] Mar, Encounter for long-term (current) use of anticoagulants V58.61 [place] [address] [address] Mar, snf (current) use of anticoagulant s Z79.01 and Encounter for therapeutic drug level monitoring Z51.[address] [address] Feb, snf (current) use of anticoagulant s Z79.01 and Encounter for therapeutic drug level monitoring Z51.[address] [address] Feb, Encounter for long-term (current) use of anticoagulants V58.61 [place] [address] [address] Feb, [address] [address] Feb, Encounter for long-term (current) use of anticoagulants V58.61 [place] [address] [place] [id number] [place] [address] 14 Feb, 2015 Encounter for therapeutic drug level mon itoring Z51.81 [place] [address] [address] Jan, [place] [address] [address] Dec, Encounter for long-term (current) use of anticoagulants V58.61 and Atrial fibrillation 427.31 [place] [address] [address] Dec, Chest wall muscle strain S29.011A [place] [address] [address] Nov, Encounter for long-term (current) use of anticoagulants V58.61 and Atrial fibrillation 427.31 [place] [address] [address] Nov, Atrial fibrillation 427.31 [place] [address] [address] Nov, [place] [address] [address] Nov, Atrial fibrillation 427.31 [place] [address] [address] Nov, Atrial fibrillation 427.31 [place] [address] [address] Oct, Encounter for long-term (current) use of anticoagulants V58.61 [place] [address] [place] [id number] [place] [address] Sep, Encounter for long-term (current) use of anticoagulants V58.61 [place] [address] [address] Aug, Encounter for long-term (current) use of anticoagulants V58.61 [place] [address] [address] July, [facility] [address] [facility] [id number] [facility] [place] [address] July, [facility] [address] [id number] [place] [address] July, [facility] [address] [id number] [place] [address] Jun, [facility] [address] [id number] [place] [address] Jun, [facility] [address] [id number] [facility] [place] [address] May, [facility] [address] [id number] [place] [address] May, [facility] [address] [id number] [place] [address] May, [facility] [address] [id number] [place] [address] Apr, [facility] [address] [id number] [place] [address] Apr, [facility] [address] [id number] [place] [address] Apr, [facility] [address] [id number] [place] [address] Apr, [facility] [address] [id number] [place] [address] Apr, [facility] [address] [id number] [place] [address] Apr, [facility] [address] [id number] [place] [address] Apr, [facility] [address] [id number] [place] [address] Mar, [facility] [address] [id number] [place] [address] Mar, [facility] [address] [id number] [place] [address] Mar, [facility] [address] [id number] [place] [address] Mar, [facility] [address] [id number] [place] [address] Mar, [facility] [address] [id number] [place] [address] Mar, [facility] [address] [id number] [place] [address] Mar, [facility] [address] [id number] [place] [address] Mar, [facility] [address] [id number] [place] [address] Feb, [facility] [address] [id number] [place] [address] Feb, [facility] [address] [id number] [place] [address] Feb, [facility] [address] [id number] [place] [address] Feb, [facility] [address] [id number] [place] [address] Feb, [facility] [address] [id number] [place] [address] Feb, [facility] [address] [id number] [place] [address] Jan, [facility] [address] [id number] [place] [address] Jan, [facility] [address] [id number] [place] [address] Jan, [facility] [address] [id number] [place] [address] Jan, [facility] [address] [id number] [place] [address] Jan, [facility] [address] [facility] [id number] [place] [address] Jan, [facility] [address] [facility] [id number] [facility] [place] [address] Dec, [facility] [address] [id number] [place] [address] Dec, [facility] [address] [facility] [id number] [place] [address] Dec, [facility] [address] [facility] [id number] [place] [address] Dec, [facility] [address] [id number] [place] [address] Nov, [facility] [address] [id number] [place] [address] Nov, [facility] [address] [id number] [place] [address] Oct, [facility] [address] [id number] [place] [address] Oct, [facility] [address] [id number] [place] [address] Oct, [facility] [address] [id number] [place] [address] Oct, [facility] [address] [id number] [place] [address] Oct, [facility] [address] [id number] [place] [address] Oct, [facility] [address] [id number] [place] [address] Sep, [facility] [address] [id number] [place] [address] Sep, [facility] [address] [id number] [place] [address] Sep, [facility] [address] [id number] [facility] [place] [address] Sep, [facility] [address] [id number] [place] [address] Sep, [facility] [address] [facility] [id number] [place] [address] Sep, [facility] [address] [id number] [place] [address] Sep, [facility] [address] [facility] [id number] [place] [address] Sep, [facility] [address] [facility] [id number] [place] [address] Sep, [facility] [address] [id number] [place] [address] Sep, [facility] [address] [id number] [place] [address] Sep, [facility] [address] [id number] [place] [address] Sep, [facility] [address] [id number] [place] [address] Sep, [facility] [address] [id number] [place] [address] Sep, [facility] [address] [id number] [place] [address] Feb, [facility] [address] [id number] [place] [address] Feb, [facility] [address] [facility] [place] [id number] [place] [address] July, [facility] [address] [id number] [place] [address] Apr, [facility] [address] [id number] [place] [address] Apr, [facility] [address] [id number] [place] [address] Apr, [facility] [place] [address] [facility] [place] [id number] [place] [address] Apr, IMMUNIZATIONS No Known Immunizations SOCIAL HISTORY Never Assessed REASON FOR VISIT PLAN OF CARE VITAL SIGNS Height 63.5 in 2012-04-20 Weight 204.31 lbs 2012-04-20 Temperature 96.7 degrees Fahrenheit 2012-04-20 Heart Rate 84 bpm 2012-04-20 Respiratory Rate 18 2012-04-20 Blood pressure systolic 130 mmHg 2012-04-20 Blood pressure diastolic 90 mmHg 2012-04-20 MEDICATIONS No Known Medications RESULTS No Results PROCEDURES Procedure Date Ordered Result Body Site COMPLETE CBC W/AUTO DIFF WBC Apr 20, 2012 IMMUNOASSAY,INFECTIOUS AGENT Apr 20, 2012 ASSAY OF LIPASE Apr 20, 2012 COMPREHEN METABOLIC PANEL Apr 20, 2012 VENIPUNCT, ROUTINE* Apr 20, 2012 INSTRUCTIONS MEDICATIONS ADMINISTERED No Known Medications MEDICAL [...] Hospitalization History Admitted to Transferred to [facility]/ Rehab 03/2017 Hospitalization History Coded, Defribrillated and ET tube placed for ventillation and transferred to [facility] 03/2017 Hospitalization History surgery 09/29/2017 Hospitalization History heart surgery 03/02-03/03/18
[2019-10-28] MEDS ORDERED: FAMOTIDINE 20MG/2ML IV (PEPCID) IV STA (09:56)
--- OUTSIDE RECORDS SUMMARY | 2019-10-28 09:56 | XMS REPORT ---
Author Author Je MESSINA [facility] Address [address] [place] [address] Care Team Providers Care School Counsellor Name Role Phone SIDDHARTHCRISTYCHERI Unavailable PROBLEMS Type Condition ICD9-CM Code IVP97-DP Code Onset Dates Condition S tatus SNOMED Code Problem Anoxic brain injury G93.1 Active 017050412 Problem Cardiomyopathy I42.9 Active 01884 001 Problem [facility] (current) use of anticoagulants Z79.01 Active 327299216 Problem Adjustment disorder with depressed mood F43.21 Active 69088325 Problem History of IA (myocardial infarction) I25.2 Active 113344693 Problem Chronic atrial fibrillation I48.2 Ac tive 020749321 Problem Non-ischemic cardiomyopathy I42.8 Ac tive 97424282 Problem History of cardiac arrest Z86.74 Acti ve 196851689 Problem Cardiac defibrillator in place Z95.810 Active 991042024 ALLERGIES No Information ENCOUNTERS Encounter Location Date Diagnosis [place] [address] [address] Jan, Dermoid cyst D36.9 and Encounter for imm unization Z23 [place] [address] [address] Dec, [facility] [address] [address] Dec, [facility] [address] [address] Dec, Bronchitis J40 [facility] [address] [address] Dec, [facility] [id number] [place] [id number] Nov, Caries K02.9 [facility] [address] [id number] Sep, Caries K02.9 [facility] [address] [id number] Aug, Caries K02.9 [facility] [address] [id number] July, Caries K02.9 [facility] [address] [id number] July, Dental examination Z01.20 [facility] [address] [id number] July, Caries K02.9 [facility] [address] [address] Jun, [facility] [address] [id number] Jun, Caries K02.9 [place] [address] [address] Jun, Chronic atrial fibrillation I48.2 ; [facility] (current) use of anticoagulants Z79.01 ; Cardiomyopathy I42.9 and Cardiac defibrillator in place Z95.810 [facility] [address] [id number] May, Caries K02.9 [place] [address] [address] Apr, History of IA (myocardial infarction) I2 5.2 and SOB (shortness of breath) R06.02 [facility] [address] [address] Apr, [facility] [address] [address] Apr, [facility] [address] [address] Apr, Canker sore K12.0 [facility] [address] [id number] Apr, Dental examination Z01.20 [facility] [address] [facility] [address] [facility] [place] [id number] Mar, Caries K02.9 [facility] [address] [address] Feb, Surgery follow-up Z09 [facility] [address] [id number] Feb, Caries K02.9 [facility] [address] [id number] Jan, Caries K02.9 [facility] [address] [address] Oct, Foreign body in subcutaneous tissue T14. 8XXA [facility] [address] [address] Sep, Chronic atrial fibrillation I48.2 ; Non- ischemic cardiomyopathy I42.8 ; Anoxic brain injury G93.1 and Adjustment disorder with depressed mood F43.21 [facility] [address] [address] Aug, [facility] [address] [address] July, [facility] [address] [address] July, [facility] [address] [address] Jun, Adjustment disorder with depressed mood F43.21 [facility] [address] [address] Jun, [facility] [address] [address] Jun, [facility] [address] [address] May, [facility] [address] [address] May, [place] [address] [address] 16 May, 2017 [place] [address] [address] 15 May, 2017 [place] [address] [address] 13 May, 2017 History of cardiac arrest Z86.74 ; Cardi ac defibrillator in place Z95.810 ; Chronic atrial fibrillation I48.2 and Current moderate episode of major depressive disorder without prior episode F32.1 [place] [address] [address] 12 May, 2017 [place] [address] [address] 16 Mar, 2017 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 [place] [address] [address] Mar, [place] [address] [address] Mar, [facility] (current) use of anticoagulant s Z79.01 [place] [address] [address] Feb, Afib I48.91 [place] [address] [address] Feb, [facility] (current) use of anticoagulant s Z79.01 [facility] [address] [facility] [id number] [address] [place] [address] Jan, Other viral agents as the ca use of diseases classified elsewhere B97.89 ; Acute upper respiratory infection, unspecified J06.9 and Body aches R52 [place] [address] [address] 17 Jan, 2017 Afib I48.91 [place] [address] [address] 09 Jan, 2017 Afib I48.91 and 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 [place] [address] [address] Dec, Afib I48.91 [place] [address] [address] Dec, Chronic atrial fibrillation I48.2 [place] [address] [address] Nov, Hypertension I10 [place] [address] [address] Oct, Chronic atrial fibrillation I48.2 [place] [address] [address] Oct, [facility] (current) use of anticoagulant s Z79.01 [place] [address] [address] Oct, Chronic atrial fibrillation I48.2 [place] [address] [address] Oct, Chronic atrial fibrillation I48.2 [place] [address] [address] Sep, [facility] (current) use of anticoagulant s Z79.01 ; Hypertension I10 ; Cardiomyopathy I42.9 and Afib I48.91 [place] [address] [address] Sep, 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 ; Hypertension I10 ; Cardiomyopathy I42.9 and Afib I48.91 [place] [address] [address] Aug, 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 [place] [address] [address] Aug, [facility] (current) use of anticoagulant s Z79.01 [place] [address] [address] Aug, 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 [place] [address] [address] July, 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 [place] [address] [address] Jun, 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 [place] [address] [address] Jun, [facility] (current) use of anticoagulant s Z79.01 [place] [address] [address] May, Chronic atrial fibrillation I48.2 [place] [address] [address] 17 May, 2016 [place] [address] [address] 13 May, 2016 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 [place] [address] [address] 10 May, 2016 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 [place] [address] [address] 10 May, 2016 Afib I48.91 ; Non-ischemic cardiomyopath y I42.8 ; Hypotension, unspecified hypotension type I95.9 and Heart palpitations R00.2 [place] [address] [address] 16 Apr, 2016 [facility] (current) use of anticoagulant s Z79.01 [place] [address] [address] 13 Apr, 2016 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 [place] [address] [address] Mar, [facility] (current) use of anticoagulant s Z79.01 [place] [address] [address] Feb, 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 [place] [address] [address] Feb, 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 [place] [address] [address] Jan, 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 [place] [address] [address] Jan, 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 [place] [address] [address] Dec, 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 [place] [address] [address] Dec, 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 [place] [address] [address] Oct, 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 [place] [address] [address] Oct, 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 [place] [address] [address] Oct, Afib I48.91 ; Cardiomyopathy I42.9 ; Pal pitations R00.2 and Non- rheumatic tricuspid valve insufficiency I36.1 [place] [address] [address] Sep, Chronic atrial fibrillation I48.2 ; [facility] (current) use of anticoagulants Z79.01 ; Cardiomyopathy I42.9 and Hypertension I10 [facility] [address] [facility] [id number] [address] [place] [address] Aug, Allergic rhinitis, unspecifi ed allergic rhinitis type J30.9 [place] [address] [address] Aug, 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 [place] [address] [address] Jun, [facility] (current) use of anticoagulant s Z79.01 [place] [address] [address] Jun, [facility] (current) use of anticoagulant s Z79.01 [place] [address] [address] Jun, [facility] (current) use of anticoagulant s Z79.01 [place] [address] [address] Jun, [place] [address] [address] May, Encounter for long-term (current) use of anticoagulants V58.61 [place] [address] [address] May, Encounter for long-term (current) use of anticoagulants V58.61 [place] [address] [address] May, Encounter for long-term (current) use of anticoagulants V58.61 [place] [address] [address] Apr, Encounter for long-term (current) use of anticoagulants V58.61 [place] [address] [address] Apr, 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 [place] [address] [address] Apr, Afib I48.91 ; Hypertension I10 ; Cardiom yopathy I42.9 and Palpitations R00.2 [place] [id number] [place] [address] Mar, [facility] (current) use of anticoagulant s Z79.[address] [address] Mar, Encounter for long-term (current) use of anticoagulants V58.[address] [address] Mar, Encounter for long-term (current) use of anticoagulants V58.61 [place] [address] [address] Mar, [facility] (current) use of anticoagulant s Z79.01 and Encounter for therapeutic drug level monitoring Z51.[address] [address] Feb, [facility] (current) use of anticoagulant s Z79.01 and Encounter for therapeutic drug level monitoring Z51.[address] [address] Feb, Encounter for long-term (current) use of anticoagulants V58.[address] [address] Feb, [address] [address] Feb, Encounter for long-term (current) use of anticoagulants V58.[address] [address] Feb, Encounter for therapeutic drug level mon itoring Z51.[address] [address] Jan, [address] [address] Dec, Encounter for long-term (current) use of anticoagulants V58.61 and Atrial fibrillation 427.[address] [address] Dec, Chest wall muscle strain S29.011A [facility] [id number] [place] [address] Nov, Encounter for long-term (current) use of anticoagulants V58.61 and Atrial fibrillation 427.31 [place] [id number] [place] [address] Nov, Atrial fibrillation 427.31 [facility] [id number] [place] [address] Nov, [place] [id number] [place] [address] Nov, Atrial fibrillation 427.31 [place] [address] [address] Nov, Atrial fibrillation 427.31 [place] [id number] [place] [address] Oct, Encounter for long-term (current) use of anticoagulants V58.61 [place] [id number] [place] [address] Sep, Encounter for long-term (current) use of anticoagulants V58.61 [place] [id number] [place] [address] Aug, Encounter for long-term (current) use of anticoagulants V58.61 [place] [id number] [place] [address] July, [place] [id number] [place] [address] July, [facility] [id number] [place] [address] July, [place] [id number] [place] [address] 14 Jun, 2014 [place] [id number] [place] [address] Jun, [place] [id number] [place] [address] May, [facility] [place] [facility] [address] [facility] [id number] [place] [address] May, [facility] [place] [facility] [address] [id number] [place] [address] May, [facility] [place] [facility] [address] [id number] [place] [address] Apr, [facility] [place] [facility] [address] [id number] [place] [address] Apr, [facility] [place] [facility] [address] [id number] [place] [address] Apr, [facility] [place] [facility] [address] [id number] [place] [address] Apr, [facility] [place] [facility] [address] [id number] [place] [address] Apr, [facility] [place] [facility] [address] [id number] [place] [address] Apr, [facility] [place] [facility] [address] [id number] [place] [address] Apr, [facility] [place] [facility] [address] [id number] [place] [address] Mar, [facility] [place] [facility] [address] [id number] [place] [address] Mar, [facility] [place] [facility] [address] [id number] [place] [address] Mar, [facility] [place] [facility] [address] [id number] [place] [address] Mar, [facility] [place] [facility] [address] [id number] [place] [address] Mar, [facility] [place] [facility] [address] [id number] [place] [address] Mar, [facility] [place] [facility] [address] [id number] [place] [address] Mar, [facility] [place] [facility] [address] [id number] [place] [address] Mar, [facility] [place] [facility] [address] [id number] [place] [address] Feb, [facility] [place] [facility] [address] [id number] [place] [address] Feb, [facility] [place] [facility] [address] [id number] [place] [address] Feb, [facility] [place] [facility] [address] [id number] [place] [address] Feb, [facility] [place] [facility] [address] [id number] [place] [address] Feb, [facility] [place] [facility] [address] [id number] [place] [address] Feb, [facility] [place] [facility] [id number] [place] [address] Jan, [facility] [place] [facility] [address] [id number] [place] [address] Jan, [facility] [place] [facility] [address] [id number] [place] [address] Jan, [facility] [place] [facility] [address] [id number] [place] [address] Jan, [facility] [place] [facility] [address] [id number] [place] [address] Jan, [facility] [place] [facility] [address] [id number] [place] [address] Jan, [facility] [place] [facility] [address] [id number] [place] [address] Dec, [facility] [place] [facility] [address] [id number] [place] [address] Dec, [facility] [place] [facility] [address] [id number] [place] [address] Dec, [facility] [place] [facility] [address] [id number] [place] [address] Dec, [facility] [place] [facility] [address] [facility] [id number] [facility] [address] Nov, [facility] [place] [facility] [address] [facility] [id number] [facility] [address] Nov, [facility] [place] [facility] [address] [id number] [facility] [address] Oct, [facility] [place] [facility] [address] [facility] [id number] [facility] [address] Oct, [facility] [place] [facility] [address] [facility] [id number] [facility] [address] Oct, [facility] [place] [facility] [address] [facility] [id number] [place] [address] Oct, [facility] [place] [facility] [address] [id number] [place] [address] Oct, [facility] [place] [facility] [address] [id number] [place] [address] Oct, [facility] [place] [facility] [address] [id number] [place] [address] Sep, [facility] [place] [facility] [address] [id number] [place] [address] Sep, [facility] [place] [facility] [address] [id number] [place] [address] Sep, [facility] [place] [facility] [address] [id number] [place] [address] Sep, [facility] [place] [facility] [address] [facility] [id number] [place] [address] Sep, [facility] [place] [facility] [address] [id number] [place] [address] Sep, [facility] [place] [facility] [address] [id number] [place] [address] Sep, [facility] [place] [facility] [address] [id number] [place] [address] Sep, [facility] [place] [facility] [id number] [place] [address] Sep, [facility] [id number] [place] [address] Sep, [facility] [id number] [place] [address] Sep, [facility] [id number] [place] [address] Sep, [facility] [id number] [place] [address] Sep, [facility] [id number] [place] [address] Sep, [facility] [id number] [place] [address] Feb, [facility] [id number] [place] [address] Feb, [facility] [id number] [place] [address] July, [facility] [id number] [place] [address] Apr, [facility] [id number] [place] [address] Apr, [facility] [id number] [place] [address] Apr, [facility] [id number] [place] [address] Apr, IMMUNIZATIONS No Known Immunizations SOCIAL HISTORY Never Assessed REASON FOR VISIT PLAN OF CARE VITAL SIGNS Height 64 in 2013-09-19 Weight 204.44 lbs 2013-09-19 Temperature 98 degrees Fahrenheit 2013-09-19 Heart Rate 164 bpm 2013-09-19 Respiratory Rate 20 2013-09-19 Blood pressure systolic 135 mmHg 2013-09-19 Blood pressure diastolic 82 mmHg 2013-09-19 MEDICATIONS No Known Medications RESULTS No Results PROCEDURES Procedure Date Ordered Result Body Site ELECTROCARDIOGRAM, TRACING September 19, 2013 INSTRUCTIONS MEDICATIONS ADMINISTERED No Known Medications MEDICAL (GENERAL) HISTORY Type Description Date Medical History Atrial fibrillation Medical History hx of c. diff Medical History Stress test performed; EF 25% Last test 2015 was at 60% Medical History Palpitations Medical History Cardiac Arrest with CPR and Intubation with ET tube and transferred to [facility] Trach placed 03/2017 due to A Fib resulting in anoxic brain injury and memory loss Medical History 03/02-03/03/18 heart surgery Surgical History Defibrillation placed 2017 Surgical History Trach/PEG Tube placed and removed [facility] a fter Intubation 2017 Surgical History heart surgery 2018 Surgical History heart surgery 03/02-03/03/18 Hospitalization History ICU for Afib 09/2013 Hospitalization History Admitted to Transferred to [facility] ICU/ Rehab 03/2017 Hospitalization History Coded, Defribrillated and ET tube placed for ventillation and transferred to [facility] 03/2017 Hospitalization History surgery 09/29/2017 Hospitalization History heart surgery 03/02-03/03/18
--- OUTSIDE RECORDS SUMMARY | 2019-10-28 09:56 | XMS REPORT ---
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 Name Role Phone KARI AMADOR Unavailable PROBLEMS Type Condition ICD9-CM Code [id number] Code Onset Dates Condition S tatus SNOMED Code Problem Anoxic brain injury G93.1 Active 045694600 Problem Cardiomyopathy I42.9 Active 09309 001 Problem 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 (current) use of anticoagulants Z79.01 Active 744252460 Problem Adjustment disorder with depressed mood F43.21 Active 79273552 Problem History of GA (myocardial infarction) I25.2 Active 142956438 Problem Chronic atrial fibrillation I48.2 Ac tive 893892888 Problem Non-ischemic cardiomyopathy I42.8 Ac tive 11772313 Problem History of cardiac arrest Z86.74 Acti ve 593273529 Problem Cardiac defibrillator in place Z95.810 Active 379816697 ALLERGIES No Information ENCOUNTERS Encounter Location Date Diagnosis [facility] [address] [id number] [place] [address] [id number] Nov, Caries K02.9 [facility] [address] [id number] [place] [address] [id number] Sep, Caries K02.9 [facility] [address] [id number] [place] [address] [id number] Aug, Caries K02.9 [facility] [address] [id number] [address] [place] [address] [id number] July, Caries K02.9 [facility] [address] [id number] [address] [place] [address] [id number] July, Dental examination Z01.20 [facility] [address] [id number] [address] [place] [address] [phone] July, Caries K02.9 [facility] [address] [id number] [address] [place] [phone] Jun, [facility] [address] [id number] [address] [place] [address] [id number] Jun, Caries K02.9 [facility] [address] [id number] [address] [place] [phone] Jun, Chronic atrial fibrillation I48.2 ; 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 (current) use of anticoagulants Z79.01 ; Cardiomyopathy I42.9 and Cardiac defibrillator in place Z95.810 [facility] [address] [id number] [place] [address] [id number] May, Caries K02.9 [facility] [address] [id number] [address] [place] [phone] Apr, History of GA (myocardial in farction) I25.2 and SOB (shortness of breath) R06.02 [facility] [address] [id number] [address] [place] [phone] Apr, [facility] [address] [id number] [address] [place] [phone] Apr, [facility] [address] [id number] [address] [place] [phone] Apr, Canker sore K12.0 [facility] [address] [id number] [place] [address] [id number] Apr, Dental examination Z01.20 [facility] [address] [facility] [id number] [address] [place] [address] [id number] Mar, Caries K02.9 [facility] [address] [id number] [address] [place] [phone] Feb, Surgery follow-up Z09 [facility] [address] [id number] [address] [place] [address] [id number] Feb, Caries K02.9 [facility] [address] [facility] [id number] [address] [place] [address] [id number] Jan, Caries K02.9 [facility] [address] [id number] [address] [place] [phone] Oct, Foreign body in subcutaneous tissue T14.8XXA [facility] [address] [id number] [address] [place] [phone] Sep, Chronic atrial fibrillation I48.2 ; Non-ischemic cardiomyopathy I42.8 ; Anoxic brain injury G93.1 and Adjustment disorder with depressed mood F43.21 [facility] [address] [id number] [address] [place] [phone] Aug, [facility] [address] [id number] [address] [place] [phone] July, [facility] [address] [id number] [address] [place] [phone] July, [facility] [address] [id number] [address] [place] [phone] Jun, Adjustment disorder with dep ressed mood F43.21 [facility] [address] [id number] [address] [place] [phone] Jun, [facility] [address] [id number] [address] [place] [phone] Jun, [facility] [address] [id number] [address] [place] [phone] May, [facility] [address] [id number] [address] [place] [phone] May, [facility] [address] [id number] [address] [place] [phone] May, [facility] [address] [id number] [address] [place] [phone] May, [facility] [address] [id number] [address] [place] [phone] May, History of cardiac arrest Z8 6.74 ; Cardiac defibrillator in place Z95.810 ; Chronic atrial fibrillation I48.2 and Current moderate episode of major depressive disorder without prior episode F32.1 [facility] [address] [facility] [id number] [address] [place] [phone] May, [facility] [address] [facility] [id number] [address] [place] [phone] Mar, 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 (current) use of a nticoagulants Z79.01 [facility] [address] [id number] [address] [place] [phone] Mar, [facility] [address] [facility] [id number] [address] [place] [phone] Mar, 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 (current) use of a nticoagulants Z79.01 [facility] [address] [facility] [id number] [address] [place] [phone] Feb, Afib I48.91 [place] [address] [facility] [id number] [address] [place] [phone] Feb, 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 (current) use of a nticoagulants Z79.01 [facility] [address] [facility] [id number] [address] [place] [phone] Jan, Other viral agents as the ca use of diseases classified elsewhere B97.89 ; Acute upper respiratory infection, unspecified J06.9 and Body aches R52 [facility] [address] [id number] [address] [place] [phone] Jan, Afib I48.91 [place] [address] [facility] [id number] [address] [place] [phone] Jan, Afib I48.91 and 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 (c urrent) use of anticoagulants Z79.01 [facility] [address] [facility] [id number] [address] [place] [phone] Dec, Afib I48.91 [facility] [address] [facility] [id number] [address] [place] [phone] Dec, Chronic atrial fibrillation I48.2 [facility] [address] [facility] [id number] [address] [place] [phone] Nov, Hypertension I10 [facility] [address] [facility] [id number] [address] [place] [phone] Oct, Chronic atrial fibrillation I48.2 [facility] [address] [facility] [id number] [address] [place] [phone] Oct, shelter (current) use of a nticoagulants Z79.01 [facility] [address] [place] [id number] [address] [place] [phone] Oct, Chronic atrial fibrillation I48.2 [facility] [place] [address] [place] [id number] [address] [place] [phone] Oct, Chronic atrial fibrillation I48.2 [facility] [address] [place] [id number] [address] [place] [phone] Sep, shelter (current) use of a nticoagulants Z79.01 ; Hypertension I10 ; Cardiomyopathy I42.9 and Afib I48.91 [facility] [address] [place] [id number] [address] [place] [phone] Sep, 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 (current) use of a nticoagulants Z79.01 ; Hypertension I10 ; Cardiomyopathy I42.9 and Afib I48.91 [place] [address] [place] [id number] [address] [place] [phone] Aug, 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 (current) use of a nticoagulants Z79.01 [place] [address] [facility] [id number] [address] [place] [phone] Aug, shelter (current) use of a nticoagulants Z79.01 [place] [address] [place] [id number] [address] [place] [phone] Aug, shelter (current) use of a nticoagulants Z79.01 [facility] [address] [id number] [address] [place] [phone] July, 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 (current) use of a nticoagulants Z79.01 [facility] [address] [id number] [address] [place] [phone] Jun, 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 (current) use of a nticoagulants Z79.01 [facility] [address] [id number] [address] [place] [phone] Jun, 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 (current) use of a nticoagulants Z79.01 [facility] [address] [id number] [address] [place] [address] May, Chronic atrial fibrillation I48.2 [place] [address] [id number] [address] [place] [address] May, [place] [address] [id number] [address] [place] [phone] May, shelter (current) use of a nticoagulants Z79.01 [place] [address] [id number] [address] [place] [phone] 10 May, 2016 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 (current) use of a nticoagulants Z79.01 [facility] [address] [id number] [address] [place] [phone] May, Afib I48.91 ; Non-ischemic c ardiomyopathy I42.8 ; Hypotension, unspecified hypotension type I95.9 and Heart palpitations R00.2 [facility] [address] [id number] [address] [place] [phone] 16 Apr, 2016 shelter (current) use of a nticoagulants Z79.01 [place] [address] [id number] [address] [place] [phone] 13 Apr, 2016 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 (current) use of a nticoagulants Z79.01 [place] [address] [id number] [address] [place] [phone] Mar, shelter (current) use of a nticoagulants Z79.01 [facility] [address] [id number] [address] [place] [phone] Feb, 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 (current) use of a nticoagulants Z79.01 [facility] [address] [id number] [address] [place] [phone] Feb, 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 (current) use of a nticoagulants Z79.01 [facility] [address] [id number] [address] [place] [phone] Jan, shelter (current) use of a nticoagulants Z79.01 [place] [address] [facility] [id number] [address] [place] [phone] Jan, shelter (current) use of a nticoagulants Z79.01 [facility] [address] [id number] [address] [place] [phone] Dec, 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 (current) use of a nticoagulants Z79.01 [facility] [address] [id number] [address] [place] [phone] Dec, 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 (current) use of a nticoagulants Z79.01 [facility] [address] [id number] [address] [place] [phone] Oct, 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 (current) use of a nticoagulants Z79.01 [facility] [address] [id number] [address] [place] [phone] Oct, shelter (current) use of a nticoagulants Z79.01 [facility] [address] [facility] [id number] [address] [place] [phone] Oct, Afib I48.91 ; Cardiomyopathy I42.9 ; Palpitations R00.2 and Non- rheumatic tricuspid valve insufficiency I36.1 [facility] [address] [id number] [address] [place] [phone] Sep, Chronic atrial fibrillation I48.2 ; shelter (current) use of anticoagulants Z79.01 ; Cardiomyopathy I42.9 and Hypertension I10 [facility] [address] [facility] [id number] [address] [place] [phone] Aug, Allergic rhinitis, unspecifi ed allergic rhinitis type J30.9 [facility] [address] [facility] [id number] [address] [place] [phone] Aug, 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 (current) use of a nticoagulants Z79.01 [facility] [address] [id number] [address] [place] [phone] Jun, shelter (current) use of a nticoagulants Z79.01 [facility] [address] [facility] [id number] [address] [place] [phone] Jun, shelter (current) use of a nticoagulants Z79.01 [facility] [address] [facility] [id number] [address] [place] [phone] Jun, shelter (current) use of a nticoagulants Z79.01 [facility] [address] [facility] [id number] [address] [place] [phone] Jun, [facility] [address] [facility] [id number] [address] [place] [phone] May, Encounter for long-term (cur rent) use of anticoagulants V58.61 [facility] [address] [facility] [id number] [address] [place] [phone] May, Encounter for long-term (cur rent) use of anticoagulants V58.61 [place] [address] [facility] [id number] [address] [place] [address] May, Encounter for long-term (cur rent) use of anticoagulants V58.61 [facility] [address] [facility] [id number] [address] [place] [address] Apr, Encounter for long-term (cur rent) use of anticoagulants V58.61 [place] [address] [id number] [address] [place] [address] Apr, 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 (current) use of a nticoagulants Z79.01 [place] [address] [facility] [id number] [address] [place] [address] Apr, Afib I48.91 ; Hypertension I 10 ; Cardiomyopathy I42.9 and Palpitations R00.2 [place] [address] [facility] [id number] [address] [place] [address] Mar, shelter (current) use of a nticoagulants Z79.01 [place] [address] [facility] [id number] [address] [place] [phone] Mar, Encounter for long-term (cur rent) use of anticoagulants V58.61 [place] [address] [facility] [id number] [address] [place] [phone] Mar, Encounter for long-term (cur rent) use of anticoagulants V58.61 [place] [address] [facility] [id number] [address] [place] [phone] Mar, 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 (current) use of a nticoagulants Z79.01 and Encounter for therapeutic drug level monitoring Z51.81 [place] [address] [facility] [id number] [address] [place] [address] Feb, shelter (current) use of a nticoagulants Z79.01 and Encounter for therapeutic drug level monitoring Z51.81 [place] [address] [id number] [address] [place] [address] Feb, Encounter for long-term (cur rent) use of anticoagulants V58.61 [place] [address] [id number] [address] [place] [address] Feb, [place] [address] [facility] [id number] [address] [place] [phone] Feb, Encounter for long-term (cur rent) use of anticoagulants V58.61 [place] [address] [id number] [address] [place] [address] Feb, Encounter for therapeutic dr ug level monitoring Z51.81 [place] [address] [id number] [address] [place] [address] Jan, [place] [address] [id number] [address] [place] [phone] Dec, Encounter for long-term (cur rent) use of anticoagulants V58.61 and Atrial fibrillation 427.31 [place] [address] [id number] [address] [place] [address] Dec, Chest wall muscle strain S29 .011A [place] [address] [id number] [address] [place] [phone] Nov, Encounter for long-term (cur rent) use of anticoagulants V58.61 and Atrial fibrillation 427.31 [place] [address] [id number] [address] [place] [phone] Nov, Atrial fibrillation 427.31 [place] [address] [id number] [address] [place] [phone] Nov, [place] [address] [id number] [address] [place] [address] Nov, Atrial fibrillation 427.31 [place] [address] [id number] [address] [place] [address] Nov, Atrial fibrillation 427.31 [place] [address] [id number] [address] [place] [phone] Oct, Encounter for long-term (cur rent) use of anticoagulants V58.61 [place] [address] [id number] [address] [place] [phone] Sep, Encounter for long-term (cur rent) use of anticoagulants V58.61 [place] [address] [id number] [address] [place] [address] Aug, Encounter for long-term (cur rent) use of anticoagulants V58.61 [facility] [address] [id number] [address] [place] [phone] July, [facility] [address] [id number] [address] [place] [phone] July, [facility] [address] [id number] [address] [place] [phone] July, [facility] [address] [id number] [address] [place] [phone] Jun, [facility] [address] [id number] [address] [place] [phone] Jun, [facility] [address] [id number] [address] [place] [phone] May, [facility] [address] [id number] [address] [place] [phone] May, [facility] [address] [id number] [address] [place] [phone] May, [facility] [address] [id number] [address] [place] [phone] Apr, [facility] [address] [id number] [address] [place] [phone] Apr, [facility] [address] [id number] [address] [place] [phone] Apr, [facility] [address] [id number] [address] [place] [address] Apr, [facility] [address] [id number] [address] [place] [phone] Apr, [facility] [address] [id number] [address] [place] [phone] Apr, [facility] [address] [id number] [address] [place] [phone] Apr, [facility] [address] [id number] [address] [place] [address], [place] [address] Mar, [facility] [address] [id number] [address] [place] [address], [place] [address] Mar, [facility] [address] [id number] [address] [place] [address], [place] [address] Mar, [facility] [address] [id number] [address] [place] [address], [place] [address] Mar, [facility] [address] [id number] [address] [place] [address], [place] [address] Mar, [facility] [address] [id number] [address] [place] [address], [place] [address] Mar, [facility] [address] [id number] [address] [place] [address], [place] [address] Mar, [facility] [address] [id number] [address] [place] [address], [place] [address] Mar, [facility] [address] [id number] [address] [place] [address], [place] [address] Feb, [facility] [address] [id number] [address] [place] [address], [place] [address] Feb, [facility] [address] [id number] [address] [place] [address], [place] [address] Feb, [facility] [address] [id number] [address] [place] [address], [place] [address] Feb, [facility] [address] [id number] [address] [place] [address], [place] [address] Feb, [facility] [address] [id number] [address] [place] [address], [place] [address] Feb, [facility] [address] [id number] [address] [place] [address], [place] [address] Jan, [facility] [address] [id number] [address] [place] [address] [place] [address] Jan, [facility] [address] [id number] [address] [place] [address], [place] [address] Jan, [facility] [address] [id number] [address] [place] [address], [place] [address] Jan, [facility] [address] [id number] [address] [place] [address], [place] [address] Jan, [facility] [address] [id number] [address] [place] [address], [place] [address] Jan, [facility] [address] [id number] [address] [place] [address], [place] [address] Dec, [facility] [address] [id number] [address] [place] [address], [place] [address] Dec, [facility] [address] [id number] [address] [place] [address], [place] [address] Dec, [facility] [address] [id number] [address] [place] [address], [place] [address] Dec, [facility] [address] [id number] [address] [place] [address], [place] [address] Nov, [facility] [address] [id number] [address] [place] [address], [place] [address] Nov, [facility] [address] [id number] [address] [place] [address], [place] [address] Oct, [facility] [address] [id number] [address] [place] [address], [place] [address] Oct, [facility] [address] [id number] [address] [place] [address], [place] [address] Oct, [facility] [address] [id number] [address] [place] [address], [place] [address] Oct, [facility] [address] [id number] [address] [place] [address], [place] [address] Oct, [facility] [address] [id number] [facility] [place] [address] Oct, [facility] [address] [id number] [facility] [place] [address] Sep, [facility] [address] [id number] [facility] [place] [address] Sep, [facility] [address] [id number] [address] [place] [address], [place] [address] Sep, [facility] [address] [id number] 97 [place] [address], [place] [address] Sep, [facility] [place] [facility] [address] [id number] [address] [place] [address], [place] [address] Sep, [facility] [place] [facility] [address] [id number] [address] [place] [address], [place] [address] Sep, [facility] [place] [facility] [address] [id number] [address] [place] [address], [place] [address] Sep, [facility] [place] [facility] [address] [id number] [address] [place] [address], [place] [address] Sep, [facility] [place] [facility] [address] [id number] [address] [place] [address], [place] [address] Sep, [facility] [place] [facility] [address] [id number] [address] [place] [address], [place] [address] Sep, [facility] [place] [facility] [address] [id number] [address] [place] [address], [place] [address] Sep, [facility] [place] [facility] [address] [id number] [address] [place] [address], [place] [address] Sep, [facility] [place] [facility] [address] [id number] [address] [place] [address], [place] [address] Sep, [facility] [place] [facility] [address] [id number] [address] [place] [address], [place] [address] Sep, [facility] [place] [facility] [address] [id number] [address] [place] [address], [place] [address] Feb, [facility] [address] [facility] [id number] [address] [place] [address] Feb, [facility] [address] [facility] [id number] [address] [place] [address] July, [facility] [address] [facility] [id number] [address] [place] [address] Apr, [facility] [address] [facility] [id number] [address] [place] [address] Apr, [facility] [address] [facility] [id number] [address] [place] [address] Apr, [facility] [address] [facility] [id number] [address] [place] [address] Apr, IMMUNIZATIONS No Known Immunizations SOCIAL HISTORY [...] Intubation with ET tube and transferred to [facility] Trach placed 03/2017 due to A Fib resulting in anoxic brain injury and memory loss Medical History 03/02-03/03/18 heart surgery Surgical History Defibrillation placed 2017 Surgical History Trach/PEG Tube placed and removed [facility] a fter Intubation 2017 Surgical History heart surgery 2018 Surgical History heart surgery 03/02-03/03/18 Hospitalization History ICU for Afib 09/2013 Hospitalization History Admitted to Transferred to [facility] ICU/ Rehab 03/2017 Hospitalization History Coded, Defribrillated and ET tube placed for ventillation and transferred to [facility] 03/2017 Hospitalization History surgery 09/29/2017 Hospitalization History heart surgery 03/02-03/03/18
--- OUTSIDE RECORDS SUMMARY | 2019-10-28 09:56 | XMS REPORT ---
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 957472879 Problem Adjustment disorder with depressed mood F43.21 Active 09616314 Problem History of [place] (myocardial infarction) I25.2 Active 462307446 Problem Chronic atrial fibrillation I48.2 Ac tive 037861550 Problem Non-ischemic cardiomyopathy I42.8 Ac tive 93619144 Problem History of cardiac arrest Z86.74 Acti ve 344523480 Problem Cardiac defibrillator in place Z95.810 Active 332588987 ALLERGIES No Information ENCOUNTERS Encounter Location Date Diagnosis [place] [id number] [place] [address] Jan, Dermoid cyst D36.9 and Encounter for imm unization Z23 [place] [address] [address] Dec, [place] [id number] [address] Dec, [place] [address] [address] Dec, Bronchitis J40 [place] [address] [address] Dec, [facility] [address] [id number] [place] [id number] Nov, Caries K02.9 [facility] [address] [id number] Sep, Caries K02.9 [facility] [address] [id number] Aug, Caries K02.9 [facility] [address] [id number] July, Caries K02.9 [facility] [address] [id number] July, Dental examination Z01.20 [facility] [address] [id number] July, Caries K02.9 [facility] [address] [address] Jun, [facility] [address] [id number] Jun, Car[place] K02.[address] [address] Jun, Chronic atrial fibrillation I48.2 ; [facility] (current) use of anticoagulants Z79.01 ; Cardiomyopathy I42.9 and Cardiac defibrillator in place Z95.810 [facility] [address] [id number] May, Caries K02.9 [facility] [address] [place] [address] Apr, History of VA (myocardial infarction) I2 5.2 and SOB (shortness of breath) R06.02 [facility] [address] [address] Apr, [facility] [address] [address] Apr, [facility] [address] [address] Apr, Canker sore K12.0 [facility] [address] [id number] Apr, Dental examination Z01.20 [facility] [address] [id number] Mar, Caries K02.9 [facility] [address] [address] Feb, Surgery follow-up Z09 [facility] [address] [id number] Feb, Caries K02.9 [facility] [address] [id number] Jan, Caries K02.9 [facility] [address] [address] Oct, Foreign body in subcutaneous tissue T14. 8XXA [facility] [address] [address] Sep, Chronic atrial fibrillation I48.2 ; Non- ischemic cardiomyopathy I42.8 ; Anoxic brain injury G93.1 and Adjustment disorder with depressed mood F43.21 [facility] [address] [address] Aug, [facility] [address] [address] July, [facility] [address] [address] July, [facility] [address] [address] Jun, Adjustment disorder with depressed mood F43.21 [facility] [address] [address] Jun, [facility] [address] [address] Jun, [facility] [address] [address] May, [facility] [address] [address] May, [place] [address] [address] 16 May, 2017 [place] [address] [address] 15 May, 2017 [place] [address] [address] 13 May, 2017 History of cardiac arrest Z86.74 ; Cardi ac defibrillator in place Z95.810 ; Chronic atrial fibrillation I48.2 and Current moderate episode of major depressive disorder without prior episode F32.1 [place] [address] [address] 12 May, 2017 [place] [address] [address] Mar, [facility] (current) use of anticoagulant s Z79.01 [place] [address] [address] Mar, [place] [address] [address] Mar, 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 [place] [address] [address] Feb, Afib I48.91 [place] [address] [address] Feb, 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 [facility] [address] [facility] [id number] [address] [address] Jan, Other viral agents as the ca use of diseases classified elsewhere B97.89 ; Acute upper respiratory infection, unspecified J06.9 and Body aches R52 [place] [address] [address] 17 Jan, 2017 Afib I48.91 [place] [address] [address] 09 Jan, 2017 Afib I48.91 and 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 [place] [address] [address] Dec, Afib I48.91 [place] [address] [address] Dec, Chronic atrial fibrillation I48.2 [place] [address] [address] Nov, Hypertension I10 [place] [address] [address] Oct, Chronic atrial fibrillation I48.2 [place] [address] [address] Oct, [facility] (current) use of anticoagulant s Z79.01 [place] [address] [address] Oct, Chronic atrial fibrillation I48.2 [place] [address] [address] Oct, Chronic atrial fibrillation I48.2 [place] [address] [address] Sep, 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 ; Hypertension I10 ; Cardiomyopathy I42.9 and Afib I48.91 [place] [address] [address] Sep, [facility] (current) use of anticoagulant s Z79.01 ; Hypertension I10 ; Cardiomyopathy I42.9 and Afib I48.91 [place] [address] [address] Aug, 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 [place] [address] [address] Aug, [facility] (current) use of anticoagulant s Z79.01 [place] [address] [address] Aug, [facility] (current) use of anticoagulant s Z79.01 [place] [address] [address] July, 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 [place] [address] [address] Jun, 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 [place] [address] [address] Jun, [facility] (current) use of anticoagulant s Z79.01 [place] [address] [address] May, Chronic atrial fibrillation I48.2 [place] [address] [address] 17 May, 2016 [place] [address] [address] May, 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 [place] [address] [address] 10 May, 2016 [facility] (current) use of anticoagulant s Z79.01 [place] [address] [address] 10 May, 2016 Afib I48.91 ; Non-ischemic cardiomyopath y I42.8 ; Hypotension, unspecified hypotension type I95.9 and Heart palpitations R00.2 [place] [address] [address] 16 Apr, 2016 [facility] (current) use of anticoagulant s Z79.01 [place] [address] [address] 13 Apr, 2016 [facility] (current) use of anticoagulant s Z79.01 [place] [address] [address] Mar, [facility] (current) use of anticoagulant s Z79.01 [place] [address] [address] Feb, [facility] (current) use of anticoagulant s Z79.01 [place] [address] [address] Feb, [facility] (current) use of anticoagulant s Z79.01 [place] [address] [address] Jan, [facility] (current) use of anticoagulant s Z79.01 [place] [address] [address] Jan, 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 [place] [address] [address] Dec, 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 [place] [address] [address] Dec, [facility] (current) use of anticoagulant s Z79.01 [place] [address] [address] Oct, [facility] (current) use of anticoagulant s Z79.01 [place] [address] [address] Oct, 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 [place] [address] [address] Oct, Afib I48.91 ; Cardiomyopathy I42.9 ; Pal pitations R00.2 and Non- rheumatic tricuspid valve insufficiency I36.1 [place] [address] [address] Sep, Chronic atrial fibrillation I48.2 ; 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 ; Cardiomyopathy I42.9 and Hypertension I10 [facility] [address] [facility] [id number] [address] [place] [address] Aug, Allergic rhinitis, unspecifi ed allergic rhinitis type J30.9 [place] [address] [address] Aug, [facility] (current) use of anticoagulant s Z79.01 [place] [address] [address] Jun, [facility] (current) use of anticoagulant s Z79.01 [place] [address] [address] Jun, 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 [place] [address] [address] Jun, 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 [place] [address] [address] Jun, [address] [address] May, Encounter for long-term (current) use of anticoagulants V58.[address] [address] May, Encounter for long-term (current) use of anticoagulants V58.61 [place] [address] [address] May, Encounter for long-term (current) use of anticoagulants V58.[address] [address] Apr, Encounter for long-term (current) use of anticoagulants V58.[address] [address] Apr, [facility] (current) use of anticoagulant s Z79.[address] [address] Apr, Afib I48.91 ; Hypertension I10 ; Cardiom yopathy I42.9 and Palpitations R00.[address] [place] [address] Mar, [facility] (current) use of anticoagulant s Z79.[address] [address] Mar, Encounter for long-term (current) use of anticoagulants V58.[address] [address] Mar, Encounter for long-term (current) use of anticoagulants V58.61 [place] [address] [address] Mar, 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 and Encounter for therapeutic drug level monitoring Z51.[address] [address] Feb, 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 and Encounter for therapeutic drug level monitoring Z51.[address] [address] Feb, Encounter for long-term (current) use of anticoagulants V58.[address] [address] Feb, [address] [address] Feb, Encounter for long-term (current) use of anticoagulants V58.[address] [address] Feb, Encounter for therapeutic drug level mon itoring Z51.[address] [address] Jan, [address] [address] Dec, Encounter for long-term (current) use of anticoagulants V58.61 and Atrial fibrillation 427.[address] [address] Dec, Chest wall muscle strain S29.011A [facility] [id number] [place] [address] Nov, Encounter for long-term (current) use of anticoagulants V58.61 and Atrial fibrillation 427.31 [place] [id number] [place] [address] Nov, Atrial fibrillation 427.31 [place] [address] [address] Nov, [place] [id number] [place] [address] Nov, Atrial fibrillation 427.31 [place] [address] [address] Nov, Atrial fibrillation 427.31 [place] [id number] [place] [address] Oct, Encounter for long-term (current) use of anticoagulants V58.61 [place] [id number] [place] [address] Sep, Encounter for long-term (current) use of anticoagulants V58.61 [place] [id number] [place] [address] Aug, Encounter for long-term (current) use of anticoagulants V58.61 [place] [id number] [place] [address] July, [place] [id number] [place] [address] July, [place] [id number] [place] [address] July, [place] [address] [address] Jun, [place] [id number] [place] [address] Jun, [place] [address] [place] [address] May, [facility] [place] [facility] [address] [facility] [id number] [place] [address] May, [facility] [place] [facility] [address] [facility] [place] [address] May, [facility] [place] [facility] [address] [id number] [place] [address] Apr, [facility] [place] [facility] [address] [id number] [place] [address] Apr, [facility] [place] [facility] [address] [id number] [place] [address] Apr, [facility] [place] [facility] [address] [id number] [place] [address] Apr, [facility] [place] [facility] [address] [id number] [place] [address] Apr, [facility] [place] [facility] [address] [id number] [place] [address] Apr, [facility] [place] [facility] [address] [id number] [place] [address] Apr, [facility] [place] [facility] [address] [id number] [place] [address] Mar, [facility] [place] [facility] [address] [id number] [place] [address] Mar, [facility] [place] [facility] [address] [id number] [place] [address] Mar, [facility] [place] [facility] [address] [id number] [place] [address] Mar, [facility] [place] [facility] [address] [id number] [place] [address] Mar, [facility] [place] [facility] [address] [id number] [place] [address] Mar, [facility] [place] [facility] [address] [id number] [place] [address] Mar, [facility] [place] [facility] [address] [id number] [place] [address] Mar, [facility] [place] [facility] [address] [id number] [place] [address] Feb, [facility] [place] [facility] [address] [id number] [place] [address] Feb, [facility] [place] [facility] [address] [id number] [place] [address] Feb, [facility] [place] [facility] [address] [id number] [place] [address] Feb, [facility] [place] [facility] [address] [id number] [place] [address] Feb, [facility] [place] [facility] [address] [id number] [place] [address] Feb, [facility] [place] [facility] [id number] [place] [address] Jan, [facility] [place] [facility] [address] [id number] [place] [address] Jan, [facility] [place] [facility] [address] [facility] [place] [address] Jan, [facility] [place] [facility] [address] [id number] [place] [address] Jan, [facility] [place] [facility] [address] [facility] [place] [address] Jan, [facility] [place] [facility] [address] [id number] [place] [address] Jan, [facility] [place] [facility] [address] [id number] [place] [address] Dec, [facility] [place] [facility] [address] [facility] [place] [address] Dec, [facility] [place] [facility] [address] [facility] [place] [address] Dec, [facility] [place] [facility] [address] [facility] [place] [address] Dec, [facility] [place] [facility] [address] [facility] [id number] [place] [address] Nov, [facility] [place] [facility] [address] [facility] [id number] [place] [address] Nov, [facility] [place] [facility] [address] [id number] [place] [address] Oct, [facility] [place] [facility] [address] [facility] [id number] [place] [address] Oct, [facility] [place] [facility] [address] [facility] [id number] [place] [address] Oct, [facility] [place] [facility] [address] [facility] [id number] [place] [address] Oct, [facility] [place] [facility] [address] [id number] [place] [address] Oct, [facility] [place] [facility] [address] [id number] [place] [address] Oct, [facility] [place] [facility] [address] [facility] [id number] [place] [address] Sep, [facility] [place] [facility] [address] [facility] [id number] [place] [address] Sep, [facility] [place] [facility] [address] [id number] [place] [address] Sep, [facility] [place] [facility] [address] [id number] [place] [address] Sep, [facility] [place] [facility] [address] [facility] [id number] [place] [address] Sep, [facility] [place] [facility] [address] [facility] [id number] [place] [address] Sep, [facility] [place] [facility] [address] [facility] [id number] [place] [address] Sep, [facility] [place] [facility] [address] [id number] [place] [address] Sep, [facility] [id number] [place] [address] Sep, [facility] [id number] [place] [address] Sep, [facility] [id number] [place] [address] Sep, [facility] [id number] [place] [address] Sep, [facility] [address] [address] Sep, [facility] [address] [address] Sep, [facility] [address] [address] Feb, [facility] [address] [address] Feb, [facility] [address] [address] July, [facility] [address] [address] Apr, [facility] [address] [address] Apr, [facility] [id number] [place] [address] Apr, [facility] [address] [address] Apr, IMMUNIZATIONS No Known Immunizations SOCIAL HISTORY [...] Intubation with ET tube and transferred to [facility] placed 03/2017 due to A Fib resulting in anoxic brain injury and memory loss Medical History 03/02-03/03/18 heart surgery Surgical History Defibrillation placed 2017 Surgical History Trach/PEG Tube placed and removed [facility] a fter Intubation 2017 Surgical History heart surgery 2018 Surgical History heart surgery 03/02-03/03/18 Hospitalization History ICU for Afib 09/2013 Hospitalization History Admitted to Transferred to [facility] ICU/ Rehab 03/2017 Hospitalization History Coded, Defribrillated and ET tube placed for ventillation and transferred to [facility] 03/2017 Hospitalization History surgery 09/29/2017 Hospitalization History heart surgery 03/02-03/03/18
--- OUTSIDE RECORDS SUMMARY | 2019-10-28 09:56 | XMS REPORT ---
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.01 Active 869316811 Problem Adjustment disorder with depressed mood F43.21 Active 82427145 Problem History of NC (myocardial infarction) I25.2 Active 365308692 Problem Chronic atrial fibrillation I48.2 Ac tive 472995581 Problem Non-ischemic cardiomyopathy I42.8 Ac tive 27134760 Problem History of cardiac arrest Z86.74 Acti ve 642467648 Problem Cardiac defibrillator in place Z95.810 Active 347046186 ALLERGIES No Information ENCOUNTERS Encounter Location Date Diagnosis [place] [id number] [place] [address] Jan, Dermoid cyst D36.9 and Encounter for imm unization Z23 [place] [address] [address] Dec, [place] [address] [address] Dec, [place] [address] [address] Dec, Bronchitis J40 [place] [address] [address] Dec, [facility] [address] [id number] [place] [id number] Nov, Caries K02.9 [facility] [address] [place] [address] [id number] Sep, Caries K02.9 [facility] [address] [place] [id number] Aug, Caries K02.9 [facility] [address] [place] [address] [id number] July, Caries K02.9 [facility] [address] [place] [address] [id number] July, Dental examination Z01.20 [facility] [address] [place] [address] [id number] July, Caries K02.9 [facility] [address] [address] Jun, [facility] [address] [place] [address] [id number] Jun, Caries K02.[address] [address] Jun, Chronic atrial fibrillation I48.2 ; [facility] (current) use of anticoagulants Z79.01 ; Cardiomyopathy I42.9 and Cardiac defibrillator in place Z95.810 [facility] [address] [place] [address] [id number] May, Caries K02.9 [facility] [address] [place] [address] Apr, History of NC (myocardial infarction) I2 5.2 and SOB (shortness of breath) R06.02 [facility] [address] [address] Apr, [facility] [address] [address] Apr, [facility] [address] [address] Apr, Canker sore K12.0 [facility] [address] [place] [address] [id number] Apr, Dental examination Z01.20 [facility] [address] [place] [address] [id number] Mar, Caries K02.9 [facility] [address] [address] Feb, Surgery follow-up Z09 [facility] [address] [place] [address] [id number] Feb, Caries K02.9 [facility] [address] [place] [id number] Jan, Caries K02.9 [facility] [address] [address] Oct, Foreign body in subcutaneous tissue T14. 8XXA [facility] [address] [address] Sep, Chronic atrial fibrillation I48.2 ; Non- ischemic cardiomyopathy I42.8 ; Anoxic brain injury G93.1 and Adjustment disorder with depressed mood F43.21 [facility] [address] [address] Aug, [facility] [address] [address] July, [facility] [address] [address] July, [facility] [address] [address] Jun, Adjustment disorder with depressed mood F43.21 [facility] [address] [address] Jun, [facility] [address] [address] Jun, [facility] [address] [address] May, [facility] [address] [address] May, [place] [address] [address] 16 May, 2017 [place] [address] [address] 15 May, 2017 [place] [address] [address] 13 May, 2017 History of cardiac arrest Z86.74 ; Cardi ac defibrillator in place Z95.810 ; Chronic atrial fibrillation I48.2 and Current moderate episode of major depressive disorder without prior episode F32.1 [place] [address] [address] 12 May, 2017 [place] [address] [address] Mar, [facility] (current) use of anticoagulant s Z79.01 [place] [address] [address] Mar, [place] [address] [address] Mar, sports nutritionist (current) use of anticoagulant s Z79.01 [place] [address] [address] Feb, Afib I48.91 [place] [address] [address] Feb, sports nutritionist (current) use of anticoagulant s Z79.01 [facility] [address] [facility] [id number] [place] [address] Jan, Other viral agents as the ca use of diseases classified elsewhere B97.89 ; Acute upper respiratory infection, unspecified J06.9 and Body aches R52 [place] [address] [address] 17 Jan, 2017 Afib I48.91 [place] [address] [address] 09 Jan, 2017 Afib I48.91 and sports nutritionist (current) use of anticoagulants Z79.01 [place] [address] [address] Dec, Afib I48.91 [place] [address] [address] Dec, Chronic atrial fibrillation I48.2 [place] [address] [address] Nov, Hypertension I10 [place] [address] [address] Oct, Chronic atrial fibrillation I48.2 [place] [address] [address] Oct, [facility] (current) use of anticoagulant s Z79.01 [place] [address] [address] Oct, Chronic atrial fibrillation I48.2 [place] [address] [address] Oct, Chronic atrial fibrillation I48.2 [place] [address] [address] Sep, sports nutritionist (current) use of anticoagulant s Z79.01 ; Hypertension I10 ; Cardiomyopathy I42.9 and Afib I48.91 [place] [address] [address] Sep, [facility] (current) use of anticoagulant s Z79.01 ; Hypertension I10 ; Cardiomyopathy I42.9 and Afib I48.91 [place] [address] [address] Aug, sports nutritionist (current) use of anticoagulant s Z79.01 [place] [address] [address] Aug, [facility] (current) use of anticoagulant s Z79.01 [place] [address] [address] Aug, [facility] (current) use of anticoagulant s Z79.01 [place] [address] [address] July, sports nutritionist (current) use of anticoagulant s Z79.01 [place] [address] [address] Jun, sports nutritionist (current) use of anticoagulant s Z79.01 [place] [address] [address] Jun, [facility] (current) use of anticoagulant s Z79.01 [place] [address] [address] May, Chronic atrial fibrillation I48.2 [place] [address] [address] 17 May, 2016 [place] [address] [address] May, sports nutritionist (current) use of anticoagulant s Z79.01 [place] [address] [address] 10 May, 2016 [facility] (current) use of anticoagulant s Z79.01 [place] [address] [address] 10 May, 2016 Afib I48.91 ; Non-ischemic cardiomyopath y I42.8 ; Hypotension, unspecified hypotension type I95.9 and Heart palpitations R00.2 [place] [address] [address] 16 Apr, 2016 [facility] (current) use of anticoagulant s Z79.01 [place] [address] [address] 13 Apr, 2016 [facility] (current) use of anticoagulant s Z79.01 [place] [address] [address] Mar, [facility] (current) use of anticoagulant s Z79.01 [place] [address] [address] Feb, [facility] (current) use of anticoagulant s Z79.01 [place] [address] [address] Feb, [facility] (current) use of anticoagulant s Z79.01 [place] [address] [address] Jan, [facility] (current) use of anticoagulant s Z79.01 [place] [address] [address] Jan, sports nutritionist (current) use of anticoagulant s Z79.01 [place] [address] [address] Dec, sports nutritionist (current) use of anticoagulant s Z79.01 [place] [address] [address] Dec, [facility] (current) use of anticoagulant s Z79.01 [place] [address] [address] Oct, [facility] (current) use of anticoagulant s Z79.01 [place] [address] [address] Oct, sports nutritionist (current) use of anticoagulant s Z79.01 [place] [address] [address] Oct, Afib I48.91 ; Cardiomyopathy I42.9 ; Pal pitations R00.2 and Non- rheumatic tricuspid valve insufficiency I36.1 [place] [address] [address] Sep, Chronic atrial fibrillation I48.2 ; sports nutritionist (current) use of anticoagulants Z79.01 ; Cardiomyopathy I42.9 and Hypertension I10 [facility] [address] [facility] [id number] [address] [place] [address] Aug, Allergic rhinitis, unspecifi ed allergic rhinitis type J30.9 [place] [address] [address] Aug, [facility] (current) use of anticoagulant s Z79.01 [place] [address] [address] Jun, [facility] (current) use of anticoagulant s Z79.01 [place] [address] [address] Jun, sports nutritionist (current) use of anticoagulant s Z79.01 [place] [address] [address] Jun, sports nutritionist (current) use of anticoagulant s Z79.01 [place] [address] [address] Jun, [address] [address] May, Encounter for long-term (current) use of anticoagulants V58.[address] [address] May, Encounter for long-term (current) use of anticoagulants V58.61 [place] [address] [address] May, Encounter for long-term (current) use of anticoagulants V58.[address] [address] Apr, Encounter for long-term (current) use of anticoagulants V58.[address] [address] Apr, [facility] (current) use of anticoagulant s Z79.[address] [address] Apr, Afib I48.91 ; Hypertension I10 ; Cardiom yopathy I42.9 and Palpitations R00.[address] [place] [address] Mar, [facility] (current) use of anticoagulant s Z79.[address] [address] Mar, Encounter for long-term (current) use of anticoagulants V58.[address] [address] Mar, Encounter for long-term (current) use of anticoagulants V58.61 [place] [address] [address] Mar, sports nutritionist (current) use of anticoagulant s Z79.01 and Encounter for therapeutic drug level monitoring Z51.[address] [address] Feb, sports nutritionist (current) use of anticoagulant s Z79.01 and Encounter for therapeutic drug level monitoring Z51.[address] [address] Feb, Encounter for long-term (current) use of anticoagulants V58.[address] [address] Feb, [address] [address] Feb, Encounter for long-term (current) use of anticoagulants V58.[address] [address] Feb, Encounter for therapeutic drug level mon itoring Z51.[address] [address] Jan, [address] [address] Dec, Encounter for long-term (current) use of anticoagulants V58.61 and Atrial fibrillation 427.[address] [address] Dec, Chest wall muscle strain S29.011A [facility] [id number] [place] [address] Nov, Encounter for long-term (current) use of anticoagulants V58.61 and Atrial fibrillation 427.31 [place] [id number] [place] [address] Nov, Atrial fibrillation 427.31 [place] [address] [address] Nov, [place] [address] [place] [id number] [place] [address] Nov, Atrial fibrillation 427.31 [place] [address] [address] Nov, Atrial fibrillation 427.31 [place] [address] [id number] [place] [address] Oct, Encounter for long-term (current) use of anticoagulants V58.61 [place] [id number] [place] [address] Sep, Encounter for long-term (current) use of anticoagulants V58.61 [place] [address] [id number] [place] [address] Aug, Encounter for long-term (current) use of anticoagulants V58.61 [place] [id number] [place] [address] July, [place] [id number] [place] [address] July, [place] [id number] [place] [address] July, [place] [address] [address] Jun, [place] [address] [id number] [place] [address] Jun, [place] [address] [place] [address] May, [facility] [place] [facility] [address] [facility] [id number] [place] [address] May, [facility] [place] [facility] [address] [id number] [place] [address] May, [facility] [place] [facility] [address] [id number] [place] [address] Apr, [facility] [place] [facility] [address] [id number] [place] [address] Apr, [facility] [place] [facility] [address] [id number] [place] [address] Apr, [facility] [place] [facility] [address] [id number] [place] [address] Apr, [facility] [place] [facility] [address] [id number] [place] [address] Apr, [facility] [place] [facility] [address] [id number] [place] [address] Apr, [facility] [place] [facility] [address] [id number] [place] [address] Apr, [facility] [place] [facility] [address] [id number] [place] [address] Mar, [facility] [place] [facility] [address] [id number] [place] [address] Mar, [facility] [place] [facility] [address] [id number] [place] [address] Mar, [facility] [place] [facility] [address] [id number] [place] [address] Mar, [facility] [place] [facility] [address] [id number] [place] [address] Mar, [facility] [place] [facility] [address] [id number] [place] [address] Mar, [facility] [place] [facility] [address] [id number] [place] [address] Mar, [facility] [place] [facility] [address] [id number] [place] [address] Mar, [facility] [place] [facility] [address] [id number] [place] [address] Feb, [facility] [place] [facility] [address] [id number] [place] [address] Feb, [facility] [place] [facility] [address] [id number] [place] [address] Feb, [facility] [place] [facility] [address] [id number] [place] [address] Feb, [facility] [place] [facility] [address] [id number] [place] [address] Feb, [facility] [place] [facility] [address] [id number] [place] [address] Feb, [facility] [place] [facility] [id number] [place] [address] Jan, [facility] [place] [facility] [address] [id number] [place] [address] Jan, [facility] [place] [facility] [address] [id number] [place] [address] Jan, [facility] [place] [facility] [address] [id number] [place] [address] Jan, [facility] [place] [facility] [address] [id number] [place] [address] Jan, [facility] [place] [facility] [address] [id number] [place] [address] Jan, [facility] [place] [facility] [address] [id number] [place] [address] Dec, [facility] [place] [facility] [address] [id number] [place] [address] Dec, [facility] [place] [facility] [address] [id number] [place] [address] Dec, [facility] [place] [facility] [address] [id number] [place] [address] Dec, [facility] [place] [facility] [address] [facility] [id number] [place] [address] Nov, [facility] [place] [facility] [address] [facility] [id number] [place] [address] Nov, [facility] [place] [facility] [address] [id number] [place] [address] Oct, [facility] [place] [facility] [address] [facility] [id number] [place] [address] Oct, [facility] [place] [facility] [address] [facility] [id number] [place] [address] Oct, [facility] [place] [facility] [address] [facility] [id number] [place] [address] Oct, [facility] [place] [facility] [address] [id number] [place] [address] Oct, [facility] [place] [facility] [address] [id number] [place] [address] Oct, [facility] [place] [facility] [address] [facility] [id number] [place] [address] Sep, [facility] [place] [facility] [address] [facility] [id number] [place] [address] Sep, [facility] [place] [facility] [address] [id number] [place] [address] Sep, [facility] [place] [facility] [address] [id number] [place] [address] Sep, [facility] [place] [facility] [address] [facility] [id number] [place] [address] Sep, [facility] [place] [facility] [address] [facility] [id number] [place] [address] Sep, [facility] [place] [facility] [address] [facility] [id number] [place] [address] Sep, [facility] [place] [facility] [address] [id number] [place] [address] Sep, [facility] [place] [facility] [id number] [place] [address] Sep, [facility] [id number] [place] [address] Sep, [facility] [id number] [place] [address] Sep, [facility] [id number] [place] [address] Sep, [facility] [id number] [place] [address] Sep, [facility] [id number] [place] [address] Sep, [facility] [id number] [place] [address] Feb, [facility] [id number] [place] [address] Feb, [facility] [id number] [place] [address] July, [facility] [id number] [place] [address] Apr, [facility] [id number] [place] [address] Apr, [facility] [id number] [place] [address] Apr, [facility] [id number] [place] [address] Apr, IMMUNIZATIONS No Known Immunizations SOCIAL HISTORY Never Assessed REASON FOR VISIT PLAN OF CARE VITAL SIGNS Height 64 in 2013-10-09 Weight 195.5 lbs 2013-10-09 Temperature 97.4 degrees Fahrenheit 2013-10-09 Heart Rate 64 bpm 2013-10-09 Respiratory Rate 18 2013-10-09 Blood pressure systolic 114 mmHg 2013-10-09 Blood pressure diastolic 78 mmHg 2013-10-09 MEDICATIONS No Known Medications RESULTS No Results PROCEDURES Procedure Date Ordered Result Body Site PROTHROMBIN TIME October 09, 2013 ASSAY OF MAGNESIUM October 09, 2013 COMPREHEN METABOLIC PANEL October 09, 2013 VENIPUNCT, ROUTINE* October 09, 2013 INSTRUCTIONS MEDICATIONS ADMINISTERED No Known Medications MEDICAL (GENERAL) HISTORY Type Description Date Medical History Atrial fibrillation Medical History hx of c. diff Medical History Stress test performed; EF 25% Last test 2016 was at 60% Medical History Palpitations Medical History Cardiac Arrest with CPR and Intubation with ET tube and transferred to [facility] Trach placed 03/2017 due to A Fib resulting in anoxic brain injury and memory loss Medical History 03/02-03/03/18 heart surgery Surgical History Defibrillation placed 2017 Surgical History Trach/PEG Tube placed and removed [facility] a fter Intubation 2017 Surgical History heart surgery 2018 Surgical History heart surgery 03/02-03/03/18 Hospitalization History ICU for Afib 09/2013 Hospitalization History Admitted to Transferred to [facility] ICU/ Rehab 03/2017 Hospitalization History Coded, Defribrillated and ET tube placed for ventillation and transferred to [facility] 03/2017 Hospitalization History surgery 09/29/2017 Hospitalization History heart surgery 03/02-03/03/18
--- OUTSIDE RECORDS SUMMARY | 2019-10-28 09:57 | XMS REPORT ---
Author Author Je Farrell Doctor Organization [facility] Address Unknown Phone Unavailable Care Team Providers Care Timing Inspector Name Role Phone Migration, Doctor Unavailable Unavailable PROBLEMS Type Condition ICD9-CM Code [id number] Code Onset Dates Condition S tatus SNOMED Code Problem Anoxic brain injury G93.1 Active 464278504 Problem Cardiomyopathy I42.9 Active 12871 001 Problem jail (current) use of anticoagulants Z79.01 Active 057719052 Problem Adjustment disorder with depressed mood F43.21 Active 45957950 Problem History of SD (myocardial infarction) I25.2 Active 206239288 Problem Chronic atrial fibrillation I48.2 Ac tive 009059454 Problem Non-ischemic cardiomyopathy I42.8 Ac tive 46072172 Problem History of cardiac arrest Z86.74 Acti ve 056077101 Problem Cardiac defibrillator in place Z95.810 Active 685101064 ALLERGIES No Information ENCOUNTERS Encounter Location Date Diagnosis [facility] [address] [id number] [address] [place] [address] [id number] Nov, Caries K02.9 [facility] [address] [id number] [address] [place] [address] [id number] Sep, Caries K02.9 [facility] [address] [id number] [address] [place] [address] [id number] Aug, Caries K02.9 [facility] [address] [id number] [address] [place] [address] [id number] July, Caries K02.9 [facility] [address] [id number] [address] [place] [address] [id number] July, Dental examination Z01.20 [facility] [address] [id number] [address] [place] [address] [id number] July, Caries K02.9 [facility] [address] [id number] [address] [address] Jun, [facility] [address] [facility] [id number] [address] [place] [address] [id number] Jun, Caries K02.9 [facility] [address] [facility] [id number] [address] [phone] Jun, Chronic atrial fibrillation I48.2 ; 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 ; Cardiomyopathy I42.9 and Cardiac defibrillator in place Z95.810 [facility] [address] [id number] [place] [address] [id number] May, Caries K02.9 [facility] [address] [facility] [id number] [place] [phone] Apr, History of SD (myocardial in farction) I25.2 and SOB (shortness of breath) R06.02 [facility] [address] [id number] [address] [phone] Apr, [facility] [address] [id number] [address] [phone] Apr, [facility] [address] [facility] [id number] [place] [phone] Apr, Canopal sore K12.0 [facility] [id number] [place] [address] [id number] Apr, Dental examination Z01.20 [facility] [address] [id number] [place] [address] [id number] Mar, Caries K02.9 [facility] [address] [facility] [id number] [address] [phone] Feb, Surgery follow-up Z09 [facility] [address] [id number] [address] [place] [address] [id number] Feb, Caries K02.9 [facility] [address] [facility] [id number] [address] [place] [address] [id number] Jan, Caries K02.9 [facility] [address] [id number] [address] [phone] Oct, Foreign body in subcutaneous tissue T14.8XXA [facility] [address] [id number] [address] [phone] Sep, Chronic atrial fibrillation I48.2 ; Non-ischemic cardiomyopathy I42.8 ; Anoxic brain injury G93.1 and Adjustment disorder with depressed mood F43.21 [facility] [address] [id number] [address] [phone] Aug, [facility] [address] [id number] [address] [phone] July, [facility] [address] [id number] [address] [phone] July, [facility] [address] [id number] [address] [phone] Jun, Adjustment disorder with dep ressed mood F43.21 [facility] [address] [id number] [address] [phone] Jun, [facility] [address] [id number] [address] [phone] Jun, [facility] [address] [id number] [address] [phone] May, [facility] [address] [id number] [address] [phone] May, [facility] [address] [id number] [address] [phone] May, [facility] [address] [id number] [address] [phone] May, [facility] [address] [facility] [id number] [address] [address] May, History of cardiac arrest Z8 6.74 ; Cardiac defibrillator in place Z95.810 ; Chronic atrial fibrillation I48.2 and Current moderate episode of major depressive disorder without prior episode F32.1 [facility] [address] [id number] [address] [phone] May, [facility] [address] [facility] [id number] [address] [phone] Mar, jail (current) use of a nticoagulants Z79.01 [facility] [address] [facility] [id number] [address] [phone] Mar, [facility] [address] [id number] [address] [address] Mar, jail (current) use of a nticoagulants Z79.01 [place] [address] [facility] [id number] [address] [address] Feb, Afib I48.91 [place] [address] [facility] [id number] [address] [address] Feb, 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 [facility] [address] [facility] [id number] [address] [address] Jan, Other viral agents as the ca use of diseases classified elsewhere B97.89 ; Acute upper respiratory infection, unspecified J06.9 and Body aches R52 [place] [address] [facility] [id number] [address] [address] Jan, Afib I48.91 [place] [address] [facility] [id number] [address] [address] Jan, Afib I48.91 and 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 urrent) 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 of anticoagulants Z79.01 [place] [address] [facility] [id number] [address] [address] Dec, Afib I48.91 [place] [address] [facility] [id number] [address] [phone] Dec, Chronic atrial fibrillation I48.2 [place] [address] [id number] [address] [phone] Nov, Hypertension I10 [place] [address] [id number] [address] [address] Oct, Chronic atrial fibrillation I48.2 [place] [address] [facility] [id number] [address] [phone] Oct, 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 [place] [address] [id number] [address] [address] Oct, Chronic atrial fibrillation I48.2 [place] [address] [id number] [address] [address] Oct, Chronic atrial fibrillation I48.2 [place] [address] [facility] [id number] [address] [address] Sep, 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 ; Hypertension I10 ; Cardiomyopathy I42.9 and Afib I48.91 [place] [address] [id number] [address] [address] Sep, 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 ; Hypertension I10 ; Cardiomyopathy I42.9 and Afib I48.91 [place] [address] [id number] [address] [place] [address] Aug, 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 [place] [address] [id number] [address] [address] Aug, jail (current) use of a nticoagulants Z79.01 [place] [address] [id number] [address] [address] Aug, 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 [place] [address] [facility] [id number] [address] [address] July, jail (current) use of a nticoagulants Z79.01 [facility] [address] [id number] [address] [address] Jun, 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 [facility] [address] [id number] [address] [address] Jun, 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 [facility] [address] [id number] [address] [address] May, Chronic atrial fibrillation I48.2 [place] [address] [id number] [address] [address] May, [place] [address] [id number] [address] [address] May, jail (current) use of a nticoagulants Z79.01 [place] [address] [id number] [address] [address] May, jail (current) use of a nticoagulants Z79.01 [facility] [address] [id number] [address] [address] May, Afib I48.91 ; Non-ischemic c ardiomyopathy I42.8 ; Hypotension, unspecified hypotension type I95.9 and Heart palpitations R00.2 [facility] [address] [id number] [address] [phone] 16 Apr, 2016 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 [facility] [address] [id number] [address] [address] Apr, 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 [place] [address] [facility] [id number] [address] [address] Mar, 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 [place] [address] [id number] [address] [address] Feb, 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 [facility] [address] [facility] [id number] [address] [address] Feb, jail (current) use of a nticoagulants Z79.01 [place] [address] [facility] [id number] [address] [address] Jan, jail (current) use of a nticoagulants Z79.01 [place] [address] [facility] [id number] [address] [address] Jan, jail (current) use of a nticoagulants Z79.01 [place] [address] [facility] [id number] [address] [address] Dec, jail (current) use of a nticoagulants Z79.01 [place] [address] [facility] [id number] [address] [address] Dec, jail (current) use of a nticoagulants Z79.01 [place] [address] [facility] [id number] [address] [address] Oct, 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 [place] [address] [facility] [id number] [address] [address] Oct, 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 [facility] [address] [facility] [id number] [address] [address] Oct, Afib I48.91 ; Cardiomyopathy I42.9 ; Palpitations R00.2 and Non- rheumatic tricuspid valve insufficiency I36.1 [facility] [address] [facility] [id number] [address] [address] Sep, Chronic atrial fibrillation I48.2 ; 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 ; Cardiomyopathy I42.9 and Hypertension I10 [facility] [address] [facility] [id number] [address] [address] Aug, Allergic rhinitis, unspecifi ed allergic rhinitis type J30.9 [facility] [address] [facility] [id number] [address] [address] Aug, jail (current) use of a nticoagulants Z79.01 [facility] [address] [facility] [id number] [address] [address] Jun, jail (current) use of a nticoagulants Z79.01 [place] [address] [facility] [id number] [address] [address] Jun, jail (current) use of a nticoagulants Z79.01 [facility] [address] [facility] [id number] [address] [address] Jun, 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 [facility] [address] [facility] [id number] [address] [address] Jun, [facility] [address] [facility] [id number] [address] [address] May, Encounter for long-term (cur rent) use of anticoagulants V58.61 [facility] [address] [facility] [id number] [address] [address] May, Encounter for long-term (cur rent) use of anticoagulants V58.61 [place] [address] [facility] [id number] [address] [address] May, Encounter for long-term (cur rent) use of anticoagulants V58.61 [facility] [address] [facility] [id number] [address] [address] Apr, Encounter for long-term (cur rent) use of anticoagulants V58.61 [place] [address] [facility] [id number] [address] [address] Apr, 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 [place] [address] [facility] [id number] [address] [address] Apr, Afib I48.91 ; Hypertension I 10 ; Cardiomyopathy I42.9 and Palpitations R00.2 [place] [address] [facility] [id number] [address] [address] Mar, jail (current) use of a nticoagulants Z79.01 [place] [address] [facility] [id number] [address] [address] Mar, Encounter for long-term (cur rent) use of anticoagulants V58.61 [place] [address] [facility] [id number] [address] [address] Mar, Encounter for long-term (cur rent) use of anticoagulants V58.61 [place] [address] [facility] [id number] [address] [address] Mar, jail (current) use of a nticoagulants Z79.01 and Encounter for therapeutic drug level monitoring Z51.81 [place] [address] [facility] [id number] [address] [address] Feb, jail (current) use of a nticoagulants Z79.01 and Encounter for therapeutic drug level monitoring Z51.81 [place] [address] [facility] [id number] [address] [address] Feb, Encounter for long-term (cur rent) use of anticoagulants V58.61 [place] [address] [facility] [id number] [address] [phone] Feb, [place] [address] [facility] [id number] [address] [address] Feb, Encounter for long-term (cur rent) use of anticoagulants V58.61 [place] [address] [facility] [id number] [address] [address] Feb, Encounter for therapeutic dr ug level monitoring Z51.81 [place] [address] [id number] [address] [address] Jan, [place] [address] [id number] [address] [phone] Dec, Encounter for long-term (cur rent) use of anticoagulants V58.61 and Atrial fibrillation 427.31 [place] [address] [id number] [address] [address] Dec, Chest wall muscle strain S29 .011A [place] [address] [id number] [address] [address] Nov, Encounter for long-term (cur rent) use of anticoagulants V58.61 and Atrial fibrillation 427.31 [place] [address] [id number] [address] [address] Nov, Atrial fibrillation 427.31 [place] [address] [id number] [address] [phone] Nov, [place] [address] [id number] [address] [address] Nov, Atrial fibrillation 427.31 [place] [address] [id number] [address] [address] Nov, Atrial fibrillation 427.31 [place] [address] [id number] [address] [address] Oct, Encounter for long-term (cur rent) use of anticoagulants V58.61 [place] [address] [id number] [address] [address] Sep, Encounter for long-term (cur rent) use of anticoagulants V58.61 [place] [address] [id number] [address] [address] Aug, Encounter for long-term (cur rent) use of anticoagulants V58.61 [place] [address] [id number] [address] [place] [address], [place] [address] July, [facility] [address] [id number] [address] [place] [address], [place] [address] July, [facility] [address] [id number] [address] [place] [address], [place] [address] July, [facility] [address] [id number] [address] [place] [address], [place] [address] Jun, [facility] [address] [id number] [address] [place] [address], [place] [address] Jun, [facility] [address] [id number] [address] [place] [address], [place] [address] May, [facility] [address] [id number] [address] [place] [address], [place] [address] May, [facility] [address] [id number] [address] [place] [address], [place] [address] May, [facility] [address] [id number] [address] [place] [address], [place] [address] Apr, [facility] [address] [id number] [address] [place] [address], [place] [address] Apr, [facility] [address] [id number] [address] [place] [address], [place] [address] Apr, [facility] [address] [id number] [address] [place] [address], [place] [address] Apr, [facility] [address] [id number] [address] [place] [address], [place] [address] Apr, [facility] [address] [id number] [address] [place] [address], [place] [address] Apr, [facility] [address] [id number] [address] [place] [address], [place] [address] Apr, [facility] [address] [id number] [address] [place] [address], [place] [address] Mar, [facility] [address] [id number] [address] [place] [address], [place] [address] Mar, [facility] [address] [id number] [address] [place] [address], [place] [address] Mar, [facility] [address] [id number] [address] [place] [address], [place] [address] Mar, [facility] [address] [id number] [address] [place] [address], [place] [id number] Mar, [facility] [address] [id number] [address] [place] [address], [place] [id number] Mar, [facility] [address] [id number] [address] [place] [address], [place] [id number] Mar, [facility] [address] [id number] [address] [place] [address], [place] [address] Mar, [facility] [address] [id number] [address] [place] [address], [place] [id number] Feb, [facility] [address] [id number] [address] [place] [address], [place] [id number] Feb, [facility] [address] [id number] [address] [place] [address], [place] [id number] Feb, [facility] [address] [id number] [address] [place] [address], [place] [id number] Feb, [facility] [address] [id number] [address] [place] [address], [place] [id number] Feb, [facility] [address] [id number] [address] [place] [address], [place] [id number] Feb, [facility] [address] [id number] [address] [place] [address], [place] [id number] Jan, [facility] [address] [id number] [address] [place] [address], [place] [id number] Jan, [facility] [address] [id number] [address] [place] [address], [place] [id number] 07 Jan, 2014 [facility] [address] [id number] [address] [place] [address], [place] [id number] Jan, [facility] [address] [id number] [address] [place] [address], [place] [id number] Jan, [facility] [address] [id number] [address] [place] [address], [place] [id number] Jan, [facility] [address] [id number] [address] [place] [address], [place] [id number] Dec, [facility] [address] [id number] [address] [place] [address], [place] [id number] Dec, [facility] [address] [id number] [address] [place] [address], [place] [id number] Dec, [facility] [address] [id number] [address] [place] [address], [place] [id number] Dec, [facility] [address] [id number] [address] [place] [address], [place] [id number] Nov, [facility] [address] [id number] [address] [place] [address], [place] [id number] Nov, [facility] [address] [id number] [address] [place] [address], [place] [id number] Oct, [facility] [address] [id number] [address] [place] [address], [place] [id number] Oct, [facility] [address] [id number] [address] [place] [address], [place] [id number] Oct, [facility] [address] [id number] [address] [place] [address], [place] [id number] Oct, [facility] [address] [id number] [address] [place] [address], [place] [id number] Oct, [facility] [address] [id number] [address] [place] [address], [place] [id number] Oct, [facility] [address] [id number] [facility] [place] [address] Sep, [facility] [address] [id number] [facility] [place] [address] Sep, [facility] [address] [id number] [facility] [place] [address] Sep, [facility] [address] [id number] [address] [place] [address], [place] [address] Sep, [facility] [address] [id number] [address] [place] [address], [place] [address] Sep, [facility] [address] [id number] [address] [place] [address], [place] [id number] Sep, [facility] [address] [id number] [address] [place] [address], [place] [id number] Sep, [facility] [address] [id number] [address] [place] [address], [place] [id number] Sep, [facility] [address] [id number] [address] [place] [address], [place] [address] Sep, [facility] [address] [id number] [address] [place] [address], [place] [id number] Sep, [facility] [address] [id number] [address] [place] [address], [place] [id number] Sep, [facility] [address] [id number] [address] [place] [address], [place] [id number] Sep, [facility] [address] [id number] [address] [place] [address], [place] [id number] Sep, [facility] [address] [id number] [address] [place] [address], [place] [id number] Sep, [facility] [address] [id number] [address] [place] [address], [place] [id number] Feb, [facility] [address] [id number] [address] [address] Feb, [facility] [address] [facility] [id number] [address] [place] [id number] July, [facility] [address] [facility] [id number] [address] [place] [id number] Apr, [facility] [address] [facility] [id number] [address] [id number] Apr, [facility] [address] [facility] [id number] [address] [id number] Apr, [facility] [address] [facility] [id number] [address] [id number] Apr, IMMUNIZATIONS No Known Immunizations SOCIAL HISTORY [...] Intubation with ET tube and transferred to [facility] Trach placed 03/2017 due to A Fib resulting in anoxic brain injury and memory loss Medical History 03/02-03/03/18 heart surgery Surgical History Defibrillation placed 2017 Surgical History Trach/PEG Tube placed and removed [facility] a fter Intubation 2017 Surgical History heart surgery 2017 Surgical History heart surgery 03/02-03/03/18 Hospitalization History ICU for Afib 09/2013 Hospitalization History Admitted to Transferred to [facility] ICU/ Rehab 03/2017 Hospitalization History Coded, Defribrillated and ET tube placed for ventillation and transferred to [facility] 03/2017 Hospitalization History surgery 09/29/2017 Hospitalization History heart surgery 03/02-03/03/18
--- OUTSIDE RECORDS SUMMARY | 2019-10-28 09:57 | XMS REPORT ---
Author Author Je Farrell Doctor Organization [facility] Address Unknown Phone Unavailable Care Team Providers Care Associate Designer Name Role Phone Migration, Doctor Unavailable Unavailable PROBLEMS Type Condition ICD9-CM Code [id number] Code Onset Dates Condition S tatus SNOMED Code Problem Anoxic brain injury G93.1 Active 026908443 Problem Cardiomyopathy I42.9 Active 32535 001 Problem retirement (current) use of anticoagulants Z79.01 Active 421034984 Problem Adjustment disorder with depressed mood F43.21 Active 57337064 Problem History of NC (myocardial infarction) I25.2 Active 976493353 Problem Chronic atrial fibrillation I48.2 Ac tive 533777891 Problem Non-ischemic cardiomyopathy I42.8 Ac tive 01912942 Problem History of cardiac arrest Z86.74 Acti ve 450677971 Problem Cardiac defibrillator in place Z95.810 Active 626776372 ALLERGIES No Information ENCOUNTERS Encounter Location Date Diagnosis [facility] [address] [id number] [address] [place] [address] [phone] Nov, Caries K02.9 [facility] [address] [id number] [address] [place] [address] [phone] Sep, Caries K02.9 [facility] [address] [id number] [address] [place] [address] [phone] Aug, Caries K02.9 [facility] [address] [id number] [address] [place] [address] [phone] July, Caries K02.9 [facility] [address] [id number] [address] [place] [address] [id number] July, Dental examination Z01.20 [facility] [address] [id number] [address] [place] [address] [phone] July, Caries K02.9 [facility] [address] [id number] [address] [place] [phone] Jun, [facility] [address] [facility] [id number] [address] [place] [address] [id number] Jun, Caries K02.9 [facility] [address] [facility] [id number] [address] [place] [phone] Jun, Chronic atrial fibrillation I48.2 ; 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.01 ; Cardiomyopathy I42.9 and Cardiac defibrillator in place Z95.810 [facility] [address] [id number] [place] [address] [phone] May, Caries K02.9 [facility] [address] [facility] [id number] [place] [phone] Apr, History of NC (myocardial in farction) I25.2 and SOB (shortness of breath) R06.02 [facility] [address] [id number] [address] [place] [phone] Apr, [facility] [address] [id number] [address] [place] [phone] Apr, [facility] [address] [facility] [id number] [place] [phone] Apr, Canopal sore K12.0 [facility] [id number] [place] [address] [id number] Apr, Dental examination Z01.20 [facility] [address] [id number] [place] [address] [phone] Mar, Caries K02.9 [facility] [address] [facility] [id number] [address] [place] [phone] Feb, Surgery follow-up Z09 [facility] [address] [id number] [address] [place] [address] [id number] Feb, Caries K02.9 [facility] [address] [facility] [id number] [address] [place] [address] [id number] Jan, Caries K02.9 [facility] [address] [id number] [address] [place] [phone] Oct, Foreign body in subcutaneous tissue T14.8XXA [facility] [address] [id number] [address] [place] [phone] Sep, Chronic atrial fibrillation I48.2 ; Non-ischemic cardiomyopathy I42.8 ; Anoxic brain injury G93.1 and Adjustment disorder with depressed mood F43.21 [facility] [address] [id number] [address] [place] [phone] Aug, [facility] [address] [id number] [address] [place] [phone] July, [facility] [address] [id number] [address] [place] [phone] July, [facility] [address] [id number] [address] [place] [phone] Jun, Adjustment disorder with dep ressed mood F43.21 [facility] [address] [id number] [address] [place] [phone] Jun, [facility] [address] [id number] [address] [place] [phone] Jun, [facility] [address] [id number] [address] [place] [phone] May, [facility] [address] [id number] [address] [place] [phone] May, [facility] [address] [id number] [address] [place] [phone] May, [facility] [address] [id number] [address] [place] [phone] May, [facility] [address] [facility] [id number] [address] [place] [phone] May, History of cardiac arrest Z8 6.74 ; Cardiac defibrillator in place Z95.810 ; Chronic atrial fibrillation I48.2 and Current moderate episode of major depressive disorder without prior episode F32.1 [facility] [address] [id number] [address] [place] [phone] May, [facility] [address] [facility] [id number] [address] [place] [phone] Mar, retirement (current) use of a nticoagulants Z79.01 [facility] [address] [facility] [id number] [address] [place] [phone] Mar, [facility] [address] [id number] [address] [place] [phone] Mar, retirement (current) use of a nticoagulants Z79.01 [facility] [id number] [facility] [id number] [address] [place] [phone] Feb, Afib I48.91 [facility] [address] [facility] [id number] [address] [place] [phone] Feb, 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 Z79.01 [facility] [address] [facility] [id number] [address] [place] [phone] Jan, Other viral agents as the ca use of diseases classified elsewhere B97.89 ; Acute upper respiratory infection, unspecified J06.9 and Body aches R52 [facility] [address] [facility] [id number] [address] [place] [phone] Jan, Afib I48.91 [facility] [address] [facility] [id number] [address] [place] [phone] Jan, Afib I48.91 and 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 (c urrent) 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 of anticoagulants Z79.01 [facility] [address] [facility] [id number] [address] [place] [phone] Dec, Afib I48.91 [facility] [place] [address] [facility] [id number] [address] [place] [phone] Dec, Chronic atrial fibrillation I48.2 [facility] [address] [id number] [address] [place] [phone] Nov, Hypertension I10 [facility] [address] [id number] [address] [place] [phone] Oct, Chronic atrial fibrillation I48.2 [facility] [address] [facility] [id number] [address] [place] [phone] Oct, 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 Z79.01 [place] [place] [address] [id number] [address] [place] [phone] Oct, Chronic atrial fibrillation I48.2 [facility] [place] [address] [id number] [address] [place] [phone] Oct, Chronic atrial fibrillation I48.2 [facility] [address] [facility] [id number] [address] [place] [phone] Sep, 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 Z79.01 ; Hypertension I10 ; Cardiomyopathy I42.9 and Afib I48.91 [facility] [address] [id number] [address] [place] [phone] Sep, 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 Z79.01 ; Hypertension I10 ; Cardiomyopathy I42.9 and Afib I48.91 [facility] [address] [id number] [address] [place] [phone] Aug, 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 Z79.01 [place] [address] [id number] [address] [place] [phone] Aug, retirement (current) use of a nticoagulants Z79.01 [place] [address] [id number] [address] [place] [phone] Aug, 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 Z79.01 [facility] [address] [facility] [id number] [address] [place] [phone] July, retirement (current) use of a nticoagulants Z79.01 [facility] [address] [id number] [address] [place] [phone] Jun, 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 Z79.01 [facility] [address] [id number] [address] [place] [phone] Jun, 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 Z79.01 [facility] [address] [id number] [address] [place] [phone] May, Chronic atrial fibrillation I48.2 [facility] [address] [id number] [address] [place] [phone] May, [facility] [address] [id number] [address] [place] [phone] May, retirement (current) use of a nticoagulants Z79.01 [place] [address] [id number] [address] [place] [phone] May, retirement (current) use of a nticoagulants Z79.01 [facility] [address] [id number] [address] [place] [phone] May, Afib I48.91 ; Non-ischemic c ardiomyopathy I42.8 ; Hypotension, unspecified hypotension type I95.9 and Heart palpitations R00.2 [facility] [address] [id number] [address] [place] [phone] 16 Apr, 2016 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 Z79.01 [facility] [address] [id number] [address] [place] [phone] Apr, 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 Z79.01 [place] [address] [facility] [id number] [address] [place] [phone] Mar, 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 Z79.01 [facility] [address] [id number] [address] [place] [phone] Feb, 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 Z79.01 [facility] [address] [facility] [id number] [address] [place] [phone] Feb, retirement (current) use of a nticoagulants Z79.01 [place] [address] [facility] [id number] [address] [place] [phone] Jan, retirement (current) use of a nticoagulants Z79.01 [place] [address] [facility] [id number] [address] [place] [phone] Jan, retirement (current) use of a nticoagulants Z79.01 [place] [address] [facility] [id number] [address] [place] [phone] Dec, retirement (current) use of a nticoagulants Z79.01 [place] [address] [facility] [id number] [address] [place] [phone] Dec, retirement (current) use of a nticoagulants Z79.01 [place] [address] [facility] [id number] [address] [place] [phone] Oct, 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 Z79.01 [place] [address] [facility] [id number] [address] [place] [phone] Oct, 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 Z79.01 [facility] [address] [facility] [id number] [address] [place] [phone] Oct, Afib I48.91 ; Cardiomyopathy I42.9 ; Palpitations R00.2 and Non- rheumatic tricuspid valve insufficiency I36.1 [facility] [address] [facility] [id number] [address] [place] [phone] Sep, Chronic atrial fibrillation I48.2 ; 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.01 ; Cardiomyopathy I42.9 and Hypertension I10 [facility] [address] [facility] [id number] [address] [place] [phone] Aug, Allergic rhinitis, unspecifi ed allergic rhinitis type J30.9 [facility] [address] [facility] [id number] [address] [place] [phone] Aug, retirement (current) use of a nticoagulants Z79.01 [facility] [address] [facility] [id number] [address] [place] [phone] Jun, retirement (current) use of a nticoagulants Z79.01 [place] [address] [facility] [id number] [address] [place] [phone] Jun, retirement (current) use of a nticoagulants Z79.01 [facility] [address] [facility] [id number] [address] [place] [phone] Jun, 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 Z79.01 [facility] [address] [facility] [id number] [address] [place] [phone] Jun, [facility] [address] [facility] [id number] [address] [place] [phone] May, Encounter for long-term (cur rent) use of anticoagulants V58.61 [facility] [address] [facility] [id number] [address] [place] [phone] May, Encounter for long-term (cur rent) use of anticoagulants V58.61 [place] [address] [facility] [id number] [address] [place] [phone] May, Encounter for long-term (cur rent) use of anticoagulants V58.61 [facility] [address] [facility] [id number] [address] [place] [phone] Apr, Encounter for long-term (cur rent) use of anticoagulants V58.61 [facility] [address] [facility] [id number] [address] [place] [phone] Apr, 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 Z79.01 [place] [address] [facility] [id number] [address] [place] [phone] Apr, Afib I48.91 ; Hypertension I 10 ; Cardiomyopathy I42.9 and Palpitations R00.2 [place] [address] [facility] [id number] [address] [place] [phone] Mar, retirement (current) use of a nticoagulants Z79.01 [facility] [address] [facility] [id number] [address] [place] [phone] Mar, Encounter for long-term (cur rent) use of anticoagulants V58.61 [facility] [address] [facility] [id number] [address] [place] [phone] Mar, Encounter for long-term (cur rent) use of anticoagulants V58.61 [facility] [address] [facility] [id number] [address] [place] [phone] Mar, retirement (current) use of a nticoagulants Z79.01 and Encounter for therapeutic drug level monitoring Z51.81 [facility] [facility] [address] [facility] [id number] [address] [place] [phone] Feb, retirement (current) use of a nticoagulants Z79.01 and Encounter for therapeutic drug level monitoring Z51.81 [facility] [address] [facility] [id number] [address] [place] [phone] Feb, Encounter for long-term (cur rent) use of anticoagulants V58.61 [facility] [address] [facility] [id number] [address] [place] [phone] Feb, [facility] [address] [facility] [id number] [address] [place] [phone] Feb, Encounter for long-term (cur rent) use of anticoagulants V58.61 [place] [address] [facility] [id number] [address] [place] [phone] Feb, Encounter for therapeutic dr ug level monitoring Z51.81 [place] [address] [id number] [address] [place] [phone] Jan, [place] [address] [id number] [address] [place] [address] Dec, Encounter for long-term (cur rent) use of anticoagulants V58.61 and Atrial fibrillation 427.31 [place] [address] [id number] [address] [place] [phone] Dec, Chest wall muscle strain S29 .011A [place] [address] [id number] [address] [place] [phone] Nov, Encounter for long-term (cur rent) use of anticoagulants V58.61 and Atrial fibrillation 427.31 [place] [address] [id number] [address] [place] [phone] Nov, Atrial fibrillation 427.31 [place] [address] [id number] [address] [place] [phone] Nov, [place] [address] [id number] [address] [place] [address] Nov, Atrial fibrillation 427.31 [place] [address] [id number] [address] [place] [phone] Nov, Atrial fibrillation 427.31 [place] [address] [id number] [address] [place] [phone] Oct, Encounter for long-term (cur rent) use of anticoagulants V58.61 [place] [address] [id number] [address] [place] [phone] Sep, Encounter for long-term (cur rent) use of anticoagulants V58.61 [place] [address] [id number] [address] [place] [phone] Aug, Encounter for long-term (cur rent) use of anticoagulants V58.61 [place] [address] [id number] [address] [place] [address], [place] [address] July, [facility] [address] [id number] [address] [place] [address], [place] [address] July, [facility] [address] [id number] [address] [place] [address], [place] [address] July, [facility] [address] [id number] [address] [place] [address], [place] [address] Jun, [facility] [address] [id number] [address] [place] [address], [place] [address] Jun, [facility] [address] [id number] [address] [place] [address], [place] [address] May, [facility] [address] [id number] [address] [place] [address], [place] [address] May, [facility] [address] [id number] [address] [place] [address], [place] [address] May, [facility] [address] [id number] [address] [place] [address], [place] [address] Apr, [facility] [address] [id number] [address] [place] [address], [place] [address] Apr, [facility] [address] [id number] [address] [place] [address], [place] [address] Apr, [facility] [address] [id number] [address] [place] [address], [place] [address] Apr, [facility] [address] [id number] [address] [place] [address], [place] [address] Apr, [facility] [address] [id number] [address] [place] [address], [place] [address] Apr, [facility] [address] [id number] [address] [place] [address], [place] [address] Apr, [facility] [address] [id number] [address] [place] [address], [place] [address] Mar, [facility] [address] [id number] [address] [place] [address], [place] [address] Mar, [facility] [address] [id number] [address] [place] [address], [place] [address] Mar, [facility] [address] [id number] [address] [place] [address], [place] [address] Mar, [facility] [address] [id number] [address] [place] [address], [place] [address] Mar, [facility] [address] [id number] [address] [place] [address], [place] [address] Mar, [facility] [address] [id number] [address] [place] [address], [place] [address] Mar, [facility] [address] [id number] [address] [place] [address], [place] [address] Mar, [facility] [address] [id number] [address] [place] [address], [place] [address] Feb, [facility] [address] [id number] [address] [place] [address], [place] [address] Feb, [facility] [address] [id number] [address] [place] [address], [place] [address] Feb, [facility] [address] [id number] [address] [place] [address], [place] [address] Feb, [facility] [address] [id number] [address] [place] [address], [place] [address] Feb, [facility] [address] [id number] [address] [place] [address], [place] [address] Feb, [facility] [address] [id number] [address] [place] [address], [place] [address] Jan, [facility] [address] [id number] [address] [place] [address], [place] [address] Jan, [facility] [address] [id number] [address] [place] [address], [place] [id number] 07 Jan, 2014 [facility] [address] [id number] [address] [place] [address], [place] [address] Jan, [facility] [address] [id number] [address] [place] [address], [place] [address] Jan, [facility] [address] [id number] [address] [place] [address], [place] [address] Jan, [facility] [address] [id number] [address] [place] [address], [place] [address] Dec, [facility] [address] [id number] [address] [place] [address], [place] [address] Dec, [facility] [address] [id number] [address] [place] [address], [place] [address] Dec, [facility] [address] [id number] [address] [place] [address], [place] [address] Dec, [facility] [address] [id number] [address] [place] [address], [place] [address] Nov, [facility] [address] [id number] [address] [place] [address], [place] [address] Nov, [facility] [address] [id number] [address] [place] [address], [place] [address] Oct, [facility] [address] [id number] [address] [place] [address], [place] [address] Oct, [facility] [address] [id number] [address] [place] [address], [place] [address] Oct, [facility] [address] [id number] [address] [place] [address], [place] [address] Oct, [facility] [address] [id number] [address] [place] [address], [place] [address] Oct, [facility] [address] [id number] [address] [place] [address], [place] [address] Oct, [facility] [address] [id number] [facility] [place] [address] Sep, [facility] [address] [id number] [address] [place] [address] Sep, [facility] [address] [id number] [address] [facility] [place] [address] Sep, [facility] [address] [id number] [address] [place] [address], [place] [address] Sep, [facility] [address] [id number] [address] [place] [address], [place] [address] Sep, [facility] [address] [id number] [address] [place] [address], [place] [id number] Sep, [facility] [address] [id number] [address] [place] [address], [place] [address] Sep, [facility] [address] [id number] [address] [place] [address], [place] [address] Sep, [facility] [address] [id number] [address] [place] [address], [place] [address] Sep, [facility] [address] [id number] [address] [place] [address], [place] [address] Sep, [facility] [address] [id number] [address] [place] [address], [place] [address] Sep, [facility] [address] [id number] [address] [place] [address], [place] [address] Sep, [facility] [address] [id number] [address] [place] [address], [place] [address] Sep, [facility] [address] [id number] [address] [place] [address], [place] [address] Sep, [facility] [address] [id number] [address] [place] [address], [place] [address] Feb, [facility] [address] [id number] [address] [address] Feb, [facility] [address] [facility] [id number] [address] [place] [id number] July, [facility] [address] [facility] [id number] [address] [place] [id number] Apr, [facility] [address] [facility] [id number] [address] [place] [id number] Apr, [facility] [address] [facility] [id number] [address] [place] [id number] Apr, [facility] [address] [facility] [id number] [address] [place] [id number] Apr, IMMUNIZATIONS No Known Immunizations SOCIAL HISTORY Never Assessed REASON FOR VISIT PLAN OF CARE VITAL SIGNS MEDICATIONS Unknown Medications RESULTS No Results PROCEDURES Procedure Date Ordered Result Body Site ASSAY THYROID STIM HORMONE Apr 29, 2014 ASSAY OF DIGOXIN Apr 29, 2014 COMPREHEN METABOLIC PANEL Apr 29, 2014 VENIPUNCT, ROUTINE* Apr 29, 2014 INSTRUCTIONS MEDICATIONS ADMINISTERED No Known Medications MEDICAL (GENERAL) HISTORY Type Description Date Medical History Atrial fibrillation Medical History hx of c. diff Medical History Stress test performed; EF 25% Last test 2015 was at 60% Medical History Palpitations Medical History Cardiac Arrest with CPR and Intubation with ET tube and transferred to [facility] Trach placed 03/2017 due to A Fib resulting in anoxic brain injury and memory loss Medical History 03/02-03/03/18 heart surgery Surgical History Defibrillation placed 2017 Surgical History Trach/PEG Tube placed and removed [facility] a fter Intubation 2017 Surgical History heart surgery 2018 Surgical History heart surgery 03/02-03/03/18 Hospitalization History ICU for Afib 09/2013 Hospitalization History Admitted to Transferred to [facility] ICU/ Rehab 03/2017 Hospitalization History Coded, Defribrillated and ET tube placed for ventillation and transferred to [facility] 03/2017 Hospitalization History surgery 09/29/2017 Hospitalization History heart surgery 03/02-03/03/18
--- OUTSIDE RECORDS SUMMARY | 2019-10-28 09:57 | XMS REPORT ---
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 625952546 Problem Adjustment disorder with depressed mood F43.21 Active 96076473 Problem History of [place] (myocardial infarction) I25.2 Active 827405876 Problem Chronic atrial fibrillation I48.2 Ac tive 253968638 Problem Non-ischemic cardiomyopathy I42.8 Ac tive 91415436 Problem History of cardiac arrest Z86.74 Acti ve 798082564 Problem Cardiac defibrillator in place Z95.810 Active 091842678 ALLERGIES No Information ENCOUNTERS Encounter Location Date Diagnosis [facility] [address] [id number] [place] [address] [id number] Nov, Caries K02.9 [facility] [address] [id number] [place] [address] [id number] Sep, Caries K02.9 [facility] [address] [id number] [address] [place] [address] [phone] Aug, Caries K02.9 [facility] [address] [id number] [address] [place] [address] [phone] July, Caries K02.9 [facility] [address] [id number] [address] [place] [address] [id number] July, Dental examination Z01.20 [facility] [address] [id number] [address] [place] [address] [id number] July, Caries K02.9 [facility] [address] [id number] [address] [place] [phone] Jun, [facility] [address] [id number] [address] [place] [address] [id number] Jun, Caries K02.9 [facility] [address] [id number] [address] [place] [phone] Jun, Chronic atrial fibrillation I48.2 ; 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 ; Cardiomyopathy I42.9 and Cardiac defibrillator in place Z95.810 [facility] [address] [id number] [place] [address] [phone] May, Caries K02.9 [facility] [address] [id number] [address] [place] [phone] Apr, History of [place] (myocardial in farction) I25.2 and SOB (shortness of breath) R06.02 [facility] [address] [id number] [address] [place] [phone] Apr, [facility] [address] [id number] [address] [place] [phone] Apr, [facility] [address] [id number] [address] [place] [phone] Apr, Canker sore K12.0 [facility] [address] [id number] [place] [address] [id number] Apr, Dental examination Z01.20 [facility] [address] [facility] [id number] [address] [place] [address] [id number] Mar, Caries K02.9 [facility] [address] [id number] [address] [place] [phone] Feb, Surgery follow-up Z09 [facility] [address] [id number] [address] [place] [address] [phone] Feb, Caries K02.9 [facility] [address] [facility] [id number] [address] [place] [address] [id number] Jan, Caries K02.9 [facility] [address] [id number] [address] [place] [phone] Oct, Foreign body in subcutaneous tissue T14.8XXA [facility] [address] [id number] [address] [place] [phone] Sep, Chronic atrial fibrillation I48.2 ; Non-ischemic cardiomyopathy I42.8 ; Anoxic brain injury G93.1 and Adjustment disorder with depressed mood F43.21 [facility] [address] [id number] [address] [place] [phone] Aug, [facility] [address] [id number] [address] [place] [phone] July, [facility] [address] [id number] [address] [place] [phone] July, [facility] [address] [id number] [address] [place] [phone] Jun, Adjustment disorder with dep ressed mood F43.21 [facility] [address] [id number] [address] [place] [phone] Jun, [facility] [address] [id number] [address] [place] [phone] Jun, [facility] [address] [id number] [address] [place] [phone] May, [facility] [address] [id number] [address] [place] [phone] May, [facility] [address] [id number] [address] [place] [phone] May, [facility] [address] [id number] [address] [place] [address] May, [facility] [address] [id number] [address] [place] [address] May, History of cardiac arrest Z8 6.74 ; Cardiac defibrillator in place Z95.810 ; Chronic atrial fibrillation I48.2 and Current moderate episode of major depressive disorder without prior episode F32.1 [facility] [address] [facility] [id number] [address] [place] [phone] May, [facility] [address] [facility] [id number] [address] [place] [phone] Mar, rat exterminator (current) use of a nticoagulants Z79.01 [facility] [address] [id number] [address] [place] [phone] Mar, [facility] [address] [facility] [id number] [address] [place] [phone] Mar, rat exterminator (current) use of a nticoagulants Z79.01 [facility] [address] [facility] [id number] [address] [place] [address] Feb, Afib I48.91 [place] [address] [facility] [id number] [address] [place] [phone] Feb, rat exterminator (current) use of a nticoagulants Z79.01 [facility] [address] [facility] [id number] [address] [place] [phone] Jan, Other viral agents as the ca use of diseases classified elsewhere B97.89 ; Acute upper respiratory infection, unspecified J06.9 and Body aches R52 [facility] [address] [id number] [address] [place] [address] Jan, Afib I48.91 [place] [address] [facility] [id number] [address] [place] [phone] Jan, Afib I48.91 and rat exterminator (c urrent) use of anticoagulants Z79.01 [facility] [address] [facility] [id number] [address] [place] [address] Dec, Afib I48.91 [facility] [address] [facility] [id number] [address] [place] [address] Dec, Chronic atrial fibrillation I48.2 [place] [address] [facility] [id number] [address] [place] [address] Nov, Hypertension I10 [place] [address] [facility] [id number] [address] [place] [address] Oct, Chronic atrial fibrillation I48.2 [place] [address] [facility] [id number] [address] [place] [address] Oct, intermediate (current) use of a nticoagulants Z79.01 [place] [address] [place] [id number] [address] [place] [address] Oct, Chronic atrial fibrillation I48.2 [place] [address] [place] [id number] [address] [place] [address] Oct, Chronic atrial fibrillation I48.2 [place] [address] [place] [id number] [address] [place] [address] Sep, intermediate (current) use of a nticoagulants Z79.01 ; Hypertension I10 ; Cardiomyopathy I42.9 and Afib I48.91 [place] [address] [place] [id number] [address] [place] [address] Sep, rat exterminator (current) use of a nticoagulants Z79.01 ; Hypertension I10 ; Cardiomyopathy I42.9 and Afib I48.91 [place] [address] [place] [id number] [address] [place] [address] Aug, rat exterminator (current) use of a nticoagulants Z79.01 [place] [address] [facility] [id number] [address] [place] [address] Aug, intermediate (current) use of a nticoagulants Z79.01 [place] [address] [place] [id number] [address] [place] [address] Aug, intermediate (current) use of a nticoagulants Z79.01 [facility] [address] [id number] [address] [place] [address] July, rat exterminator (current) use of a nticoagulants Z79.01 [facility] [address] [id number] [address] [place] [address] Jun, rat exterminator (current) use of a nticoagulants Z79.01 [facility] [address] [id number] [address] [place] [address] Jun, rat exterminator (current) use of a nticoagulants Z79.01 [facility] [address] [id number] [address] [place] [address] May, Chronic atrial fibrillation I48.2 [place] [address] [id number] [address] [place] [address] May, [place] [address] [id number] [address] [place] [address] May, intermediate (current) use of a nticoagulants Z79.01 [place] [address] [id number] [address] [place] [phone] 10 May, 2016 rat exterminator (current) use of a nticoagulants Z79.01 [facility] [address] [id number] [address] [place] [address] May, Afib I48.91 ; Non-ischemic c ardiomyopathy I42.8 ; Hypotension, unspecified hypotension type I95.9 and Heart palpitations R00.2 [facility] [address] [id number] [address] [place] [address] 16 Apr, 2016 intermediate (current) use of a nticoagulants Z79.01 [place] [address] [id number] [address] [place] [phone] 13 Apr, 2016 rat exterminator (current) use of a nticoagulants Z79.01 [place] [address] [id number] [address] [place] [address] Mar, intermediate (current) use of a nticoagulants Z79.01 [facility] [address] [id number] [address] [place] [address] Feb, rat exterminator (current) use of a nticoagulants Z79.01 [facility] [address] [id number] [address] [place] [address] Feb, rat exterminator (current) use of a nticoagulants Z79.01 [facility] [address] [id number] [address] [place] [address] Jan, intermediate (current) use of a nticoagulants Z79.01 [place] [address] [facility] [id number] [address] [place] [address] Jan, intermediate (current) use of a nticoagulants Z79.01 [facility] [address] [id number] [address] [place] [address] Dec, rat exterminator (current) use of a nticoagulants Z79.01 [facility] [address] [id number] [address] [place] [address] Dec, rat exterminator (current) use of a nticoagulants Z79.01 [facility] [address] [id number] [address] [place] [address] Oct, rat exterminator (current) use of a nticoagulants Z79.01 [facility] [address] [id number] [address] [place] [address] Oct, intermediate (current) use of a nticoagulants Z79.01 [facility] [address] [facility] [id number] [address] [place] [address] Oct, Afib I48.91 ; Cardiomyopathy I42.9 ; Palpitations R00.2 and Non- rheumatic tricuspid valve insufficiency I36.1 [facility] [address] [id number] [address] [place] [address] Sep, Chronic atrial fibrillation I48.2 ; intermediate (current) use of anticoagulants Z79.01 ; Cardiomyopathy I42.9 and Hypertension I10 [facility] [address] [facility] [id number] [address] [place] [address] Aug, Allergic rhinitis, unspecifi ed allergic rhinitis type J30.9 [facility] [address] [facility] [id number] [address] [place] [address] Aug, rat exterminator (current) use of a nticoagulants Z79.01 [facility] [address] [id number] [address] [place] [address] Jun, intermediate (current) use of a nticoagulants Z79.01 [facility] [address] [facility] [id number] [address] [place] [address] Jun, intermediate (current) use of a nticoagulants Z79.01 [facility] [address] [facility] [id number] [address] [place] [address] Jun, intermediate (current) use of a nticoagulants Z79.01 [facility] [address] [facility] [id number] [address] [place] [address] Jun, [facility] [address] [facility] [id number] [address] [place] [address] May, Encounter for long-term (cur rent) use of anticoagulants V58.61 [facility] [address] [facility] [id number] [address] [place] [address] May, Encounter for long-term (cur rent) use of anticoagulants V58.61 [place] [address] [facility] [id number] [address] [place] [address] May, Encounter for long-term (cur rent) use of anticoagulants V58.61 [facility] [address] [facility] [id number] [address] [place] [address] Apr, Encounter for long-term (cur rent) use of anticoagulants V58.61 [place] [address] [id number] [address] [place] [address] Apr, rat exterminator (current) use of a nticoagulants Z79.01 [place] [address] [facility] [id number] [address] [place] [address] Apr, Afib I48.91 ; Hypertension I 10 ; Cardiomyopathy I42.9 and Palpitations R00.2 [place] [address] [facility] [id number] [address] [place] [address] Mar, intermediate (current) use of a nticoagulants Z79.01 [place] [address] [facility] [id number] [address] [place] [address] Mar, Encounter for long-term (cur rent) use of anticoagulants V58.61 [place] [address] [facility] [id number] [address] [place] [address] Mar, Encounter for long-term (cur rent) use of anticoagulants V58.61 [place] [address] [facility] [id number] [address] [place] [address] Mar, rat exterminator (current) use of a nticoagulants Z79.01 and Encounter for therapeutic drug level monitoring Z51.81 [place] [address] [facility] [id number] [address] [place] [address] Feb, intermediate (current) use of a nticoagulants Z79.01 and Encounter for therapeutic drug level monitoring Z51.81 [place] [address] [id number] [address] [place] [address] Feb, Encounter for long-term (cur rent) use of anticoagulants V58.61 [place] [address] [id number] [address] [place] [address] Feb, [place] [address] [facility] [id number] [address] [place] [address] Feb, Encounter for long-term (cur rent) use of anticoagulants V58.61 [place] [address] [id number] [address] [place] [address] Feb, Encounter for therapeutic dr ug level monitoring Z51.81 [place] [address] [id number] [address] [place] [address] Jan, [place] [address] [id number] [address] [place] [address] Dec, Encounter for long-term (cur rent) use of anticoagulants V58.61 and Atrial fibrillation 427.31 [place] [address] [id number] [address] [place] [address] Dec, Chest wall muscle strain S29 .011A [place] [address] [id number] [address] [place] [address] Nov, Encounter for long-term (cur rent) use of anticoagulants V58.61 and Atrial fibrillation 427.31 [place] [address] [id number] [address] [place] [address] Nov, Atrial fibrillation 427.31 [place] [address] [id number] [address] [place] [address] Nov, [place] [address] [id number] [address] [place] [address] Nov, Atrial fibrillation 427.31 [place] [address] [id number] [address] [place] [address] Nov, Atrial fibrillation 427.31 [place] [address] [id number] [address] [place] [address] Oct, Encounter for long-term (cur rent) use of anticoagulants V58.61 [place] [address] [id number] [address] [place] [address] Sep, Encounter for long-term (cur rent) use of anticoagulants V58.61 [place] [address] [id number] [address] [place] [address] Aug, Encounter for long-term (cur rent) use of anticoagulants V58.61 [facility] [address] [id number] [address] [place] [address] July, [facility] [address] [id number] [address] [place] [address] July, [facility] [address] [id number] [address] [place] [address] July, [facility] [address] [id number] [address] [place] [address] Jun, [facility] [address] [id number] [address] [place] [address] Jun, [facility] [address] [id number] [address] [place] [address] May, [facility] [address] [id number] [address] [place] [address] May, [facility] [address] [id number] [address] [place] [address] May, [facility] [address] [id number] [address] [place] [address] Apr, [facility] [address] [id number] [address] [place] [address] Apr, [facility] [address] [id number] [address] [place] [address] Apr, [facility] [address] [id number] [address] [place] [address] Apr, [facility] [address] [id number] [address] [place] [address] Apr, [facility] [address] [id number] [address] [place] [address] Apr, [facility] [address] [id number] [address] [place] [address] Apr, [facility] [address] [id number] [address] [place] [address], [place] [address] Mar, [facility] [address] [id number] [address] [place] [address], [place] [address] Mar, [facility] [address] [id number] [address] [place] [address], [place] [address] Mar, [facility] [address] [id number] [address] [place] [address], [place] [address] Mar, [facility] [address] [id number] [address] [place] [address], [place] [address] Mar, [facility] [address] [id number] [address] [place] [address], [place] [address] Mar, [facility] [address] [id number] [address] [place] [address], [place] [address] Mar, [facility] [address] [id number] [address] [place] [address], [place] [address] Mar, [facility] [address] [id number] [address] [place] [address], [place] [address] Feb, [facility] [address] [id number] [address] [place] [address], [place] [address] Feb, [facility] [address] [id number] [address] [place] [address], [place] [address] Feb, [facility] [address] [id number] [address] [place] [address], [place] [address] Feb, [facility] [address] [id number] [address] [place] [address], [place] [address] Feb, [facility] [address] [id number] [address] [place] [address], [place] [address] Feb, [facility] [address] [id number] [address] [place] [address], [place] [address] Jan, [facility] [address] [id number] [address] [place] [address] [place] [address] Jan, [facility] [address] [id number] [address] [place] [address], [place] [address] Jan, [facility] [address] [id number] [address] [place] [address], [place] [address] Jan, [facility] [address] [id number] [address] [place] [address], [place] [address] Jan, [facility] [address] [id number] [address] [place] [address], [place] [address] Jan, [facility] [address] [id number] [address] [place] [address], [place] [address] Dec, [facility] [address] [id number] [address] [place] [address], [place] [address] Dec, [facility] [address] [id number] [address] [place] [address], [place] [address] Dec, [facility] [address] [id number] [address] [place] [address], [place] [address] Dec, [facility] [address] [id number] [address] [place] [address], [place] [address] Nov, [facility] [address] [id number] [address] [place] [address], [place] [address] Nov, [facility] [address] [id number] [address] [place] [address], [place] [address] Oct, [facility] [address] [id number] [address] [place] [address], [place] [address] Oct, [facility] [address] [id number] [address] [place] [address], [place] [address] Oct, [facility] [address] [id number] [address] [place] [address], [place] [address] Oct, [facility] [address] [id number] [address] [place] [address], [place] [address] Oct, [facility] [address] [id number] [address] [place] [address] Oct, [facility] [address] [id number] [address] [place] [address] Sep, [facility] [address] [id number] [address] [place] [address] Sep, [facility] [address] [id number] [address] [place] [address], [place] [address] Sep, [facility] [address] [address] [id number] [address] [place] [address], [place] [address] Sep, [facility] [address] [id number] [address] [place] [address], [place] [address] Sep, [facility] [address] [id number] [address] [place] [address], [place] [id number] Sep, [facility] [address] [id number] [address] [place] [address], [place] [address] Sep, [facility] [address] [id number] [address] [place] [address], [place] [address] Sep, [facility] [address] [id number] [address] [place] [address], [place] [address] Sep, [facility] [address] [id number] [address] [place] [address], [place] [address] Sep, [facility] [address] [id number] [address] [place] [address], [place] [address] Sep, [facility] [address] [id number] [address] [place] [address], [place] [address] Sep, [facility] [address] [id number] [address] [place] [address], [place] [address] Sep, [facility] [address] [id number] [address] [place] [address], [place] [address] Sep, [facility] [address] [id number] [address] [place] [address], [place] [address] Feb, [facility] [address] [facility] [id number] [address] [place] [id number] Feb, [facility] [address] [facility] [id number] [address] [place] [phone] July, [facility] [address] [facility] [id number] [address] [place] [phone] Apr, [facility] [address] [facility] [id number] [address] [place] [phone] Apr, [facility] [address] [facility] [id number] [address] [place] [id number] Apr, [facility] [address] [facility] [id number] [address] [place] [id number] Apr, IMMUNIZATIONS No Known Immunizations SOCIAL HISTORY [...] Intubation with ET tube and transferred to [facility] Trach placed 03/2017 due to A Fib resulting in anoxic brain injury and memory loss Medical History 03/02-03/03/18 heart surgery Surgical History Defibrillation placed 2017 Surgical History Trach/PEG Tube placed and removed [facility] a fter Intubation 2017 Surgical History heart surgery 2018 Surgical History heart surgery 03/02-03/03/18 Hospitalization History ICU for Afib 09/2013 Hospitalization History Admitted to Transferred to [facility] ICU/ Rehab 03/2017 Hospitalization History Coded, Defribrillated and ET tube placed for ventillation and transferred to [facility] 03/2017 Hospitalization History surgery 09/29/2017 Hospitalization History heart surgery 03/02-03/03/18
--- OUTSIDE RECORDS SUMMARY | 2019-10-28 09:57 | XMS REPORT ---
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) use of anticoagulants Z79.01 Active 963908140 Problem Adjustment disorder with depressed mood F43.21 Active 14320229 Problem History of MT (myocardial infarction) I25.2 Active 142604946 Problem Chronic atrial fibrillation I48.2 Ac tive 052936006 Problem Non-ischemic cardiomyopathy I42.8 Ac tive 60770800 Problem History of cardiac arrest Z86.74 Acti ve 295440175 Problem Cardiac defibrillator in place Z95.810 Active 155340775 ALLERGIES No Information ENCOUNTERS Encounter Location Date Diagnosis [facility] [address] [id number] [place] [address] [id number] Nov, Caries K02.9 [facility] [address] [id number] [place] [address] [id number] Sep, Caries K02.9 [facility] [address] [id number] [place] [address] [id number] Aug, Caries K02.9 [facility] [address] [id number] [address] [place] [address] [phone] July, Caries K02.9 [facility] [address] [id number] [address] [place] [address] [phone] July, Dental examination Z01.20 [facility] [address] [id number] [address] [place] [address] [phone] July, Caries K02.9 [facility] [address] [id number] [address] [place] [phone] Jun, [facility] [address] [id number] [address] [place] [address] [phone] Jun, Caries K02.9 [facility] [address] [id number] [address] [place] [phone] Jun, Chronic atrial fibrillation I48.2 ; long term care phlebotomist (current) use of anticoagulants Z79.01 ; Cardiomyopathy I42.9 and Cardiac defibrillator in place Z95.810 [facility] [address] [id number] [place] [address] [phone] May, Caries K02.9 [facility] [address] [id number] [address] [place] [phone] Apr, History of MT (myocardial in farction) I25.2 and SOB (shortness of breath) R06.02 [facility] [address] [id number] [address] [place] [phone] Apr, [facility] [address] [id number] [address] [place] [phone] Apr, [facility] [address] [id number] [address] [place] [phone] Apr, Canker sore K12.0 [facility] [address] [id number] [place] [address] [phone] Apr, Dental examination Z01.20 [facility] [address] [facility] [id number] [address] [place] [address] [phone] Mar, Caries K02.9 [facility] [address] [id number] [address] [place] [phone] Feb, Surgery follow-up Z09 [facility] [address] [id number] [address] [place] [address] [phone] Feb, Caries K02.9 [facility] [address] [facility] [id number] [address] [place] [address] [phone] Jan, Caries K02.9 [facility] [address] [id number] [address] [place] [phone] Oct, Foreign body in subcutaneous tissue T14.8XXA [facility] [address] [id number] [address] [place] [phone] Sep, Chronic atrial fibrillation I48.2 ; Non-ischemic cardiomyopathy I42.8 ; Anoxic brain injury G93.1 and Adjustment disorder with depressed mood F43.21 [facility] [address] [id number] [address] [place] [phone] Aug, [facility] [address] [id number] [address] [place] [phone] July, [facility] [address] [id number] [address] [place] [phone] July, [facility] [address] [id number] [address] [place] [phone] Jun, Adjustment disorder with dep ressed mood F43.21 [facility] [address] [id number] [address] [place] [phone] Jun, [facility] [address] [id number] [address] [place] [phone] Jun, [facility] [address] [id number] [address] [place] [phone] May, [facility] [address] [id number] [address] [place] [phone] May, [facility] [address] [id number] [address] [place] [phone] May, [facility] [address] [id number] [address] [place] [phone] May, [facility] [address] [id number] [address] [place] [phone] May, History of cardiac arrest Z8 6.74 ; Cardiac defibrillator in place Z95.810 ; Chronic atrial fibrillation I48.2 and Current moderate episode of major depressive disorder without prior episode F32.1 [facility] [address] [facility] [id number] [address] [place] [phone] May, [facility] [address] [facility] [id number] [address] [place] [address] Mar, long term care phlebotomist (current) use of a nticoagulants Z79.01 [facility] [address] [id number] [address] [place] [phone] Mar, [facility] [address] [facility] [id number] [address] [place] [phone] Mar, long term care phlebotomist (current) use of a nticoagulants Z79.01 [facility] [address] [facility] [id number] [address] [place] [phone] Feb, Afib I48.91 [place] [address] [facility] [id number] [address] [place] [address] Feb, long term care phlebotomist (current) use of a nticoagulants Z79.01 [facility] [address] [facility] [id number] [address] [place] [phone] Jan, Other viral agents as the ca use of diseases classified elsewhere B97.89 ; Acute upper respiratory infection, unspecified J06.9 and Body aches R52 [facility] [address] [id number] [address] [place] [phone] Jan, Afib I48.91 [place] [address] [facility] [id number] [address] [place] [phone] Jan, Afib I48.91 and long term care phlebotomist (c urrent) use of anticoagulants Z79.01 [facility] [address] [facility] [id number] [address] [place] [address] Dec, Afib I48.91 [facility] [address] [facility] [id number] [address] [place] [phone] Dec, Chronic atrial fibrillation I48.2 [place] [address] [facility] [id number] [address] [place] [address] Nov, Hypertension I10 [place] [address] [facility] [id number] [address] [place] [phone] Oct, Chronic atrial fibrillation I48.2 [place] [address] [facility] [id number] [address] [place] [phone] Oct, [facility] (current) use of a nticoagulants Z79.01 [place] [address] [place] [id number] [address] [place] [phone] Oct, Chronic atrial fibrillation I48.2 [place] [address] [place] [id number] [address] [place] [address] Oct, Chronic atrial fibrillation I48.2 [place] [address] [place] [id number] [address] [place] [phone] Sep, [facility] (current) use of a nticoagulants Z79.01 ; Hypertension I10 ; Cardiomyopathy I42.9 and Afib I48.91 [place] [address] [place] [id number] [address] [place] [address] Sep, long term care phlebotomist (current) use of a nticoagulants Z79.01 ; Hypertension I10 ; Cardiomyopathy I42.9 and Afib I48.91 [place] [address] [place] [id number] [address] [place] [phone] Aug, long term care phlebotomist (current) use of a nticoagulants Z79.01 [place] [address] [facility] [id number] [address] [place] [phone] Aug, [facility] (current) use of a nticoagulants Z79.01 [place] [address] [place] [id number] [address] [place] [phone] Aug, [facility] (current) use of a nticoagulants Z79.01 [facility] [address] [id number] [address] [place] [phone] July, long term care phlebotomist (current) use of a nticoagulants Z79.01 [facility] [address] [id number] [address] [place] [address] Jun, long term care phlebotomist (current) use of a nticoagulants Z79.01 [facility] [address] [id number] [address] [place] [phone] Jun, long term care phlebotomist (current) use of a nticoagulants Z79.01 [facility] [address] [id number] [address] [place] [phone] May, Chronic atrial fibrillation I48.2 [place] [address] [id number] [address] [place] [phone] May, [place] [address] [id number] [address] [place] [phone] May, [facility] (current) use of a nticoagulants Z79.01 [place] [address] [id number] [address] [place] [phone] 10 May, 2016 long term care phlebotomist (current) use of a nticoagulants Z79.01 [facility] [address] [id number] [address] [place] [address] May, Afib I48.91 ; Non-ischemic c ardiomyopathy I42.8 ; Hypotension, unspecified hypotension type I95.9 and Heart palpitations R00.2 [facility] [address] [id number] [address] [place] [phone] 16 Apr, 2016 [facility] (current) use of a nticoagulants Z79.01 [place] [address] [id number] [address] [place] [phone] 13 Apr, 2016 long term care phlebotomist (current) use of a nticoagulants Z79.01 [place] [address] [id number] [address] [place] [phone] Mar, [facility] (current) use of a nticoagulants Z79.01 [facility] [address] [id number] [address] [place] [phone] Feb, long term care phlebotomist (current) use of a nticoagulants Z79.01 [facility] [address] [id number] [address] [place] [phone] Feb, long term care phlebotomist (current) use of a nticoagulants Z79.01 [facility] [address] [id number] [address] [place] [phone] Jan, [facility] (current) use of a nticoagulants Z79.01 [place] [address] [facility] [id number] [address] [place] [address] Jan, [facility] (current) use of a nticoagulants Z79.01 [facility] [address] [id number] [address] [place] [address] Dec, long term care phlebotomist (current) use of a nticoagulants Z79.01 [facility] [address] [id number] [address] [place] [address] Dec, long term care phlebotomist (current) use of a nticoagulants Z79.01 [facility] [address] [id number] [address] [place] [address] Oct, long term care phlebotomist (current) use of a nticoagulants Z79.01 [facility] [address] [id number] [address] [place] [address] Oct, [facility] (current) use of a nticoagulants Z79.01 [facility] [address] [facility] [id number] [address] [place] [address] Oct, Afib I48.91 ; Cardiomyopathy I42.9 ; Palpitations R00.2 and Non- rheumatic tricuspid valve insufficiency I36.1 [facility] [address] [id number] [address] [place] [address] Sep, Chronic atrial fibrillation I48.2 ; [facility] (current) use of anticoagulants Z79.01 ; Cardiomyopathy I42.9 and Hypertension I10 [facility] [address] [facility] [id number] [address] [place] [address] Aug, Allergic rhinitis, unspecifi ed allergic rhinitis type J30.9 [facility] [address] [facility] [id number] [address] [place] [address] Aug, long term care phlebotomist (current) use of a nticoagulants Z79.01 [facility] [address] [id number] [address] [place] [address] Jun, [facility] (current) use of a nticoagulants Z79.01 [facility] [address] [facility] [id number] [address] [place] [address] Jun, [facility] (current) use of a nticoagulants Z79.01 [facility] [address] [facility] [id number] [address] [place] [address] Jun, [facility] (current) use of a nticoagulants Z79.01 [facility] [address] [facility] [id number] [address] [place] [address] Jun, [facility] [address] [facility] [id number] [address] [place] [address] May, Encounter for long-term (cur rent) use of anticoagulants V58.61 [facility] [address] [facility] [id number] [address] [place] [address] May, Encounter for long-term (cur rent) use of anticoagulants V58.61 [place] [address] [facility] [id number] [address] [place] [address] May, Encounter for long-term (cur rent) use of anticoagulants V58.61 [facility] [address] [facility] [id number] [address] [place] [address] Apr, Encounter for long-term (cur rent) use of anticoagulants V58.61 [place] [address] [id number] [address] [place] [address] Apr, long term care phlebotomist (current) use of a nticoagulants Z79.01 [place] [address] [facility] [id number] [address] [place] [address] Apr, Afib I48.91 ; Hypertension I 10 ; Cardiomyopathy I42.9 and Palpitations R00.2 [place] [address] [facility] [id number] [address] [place] [address] Mar, [facility] (current) use of a nticoagulants Z79.01 [place] [address] [facility] [id number] [address] [place] [address] Mar, Encounter for long-term (cur rent) use of anticoagulants V58.61 [place] [address] [facility] [id number] [address] [place] [address] Mar, Encounter for long-term (cur rent) use of anticoagulants V58.61 [place] [address] [facility] [id number] [address] [place] [address] Mar, long term care phlebotomist (current) use of a nticoagulants Z79.01 and Encounter for therapeutic drug level monitoring Z51.81 [place] [address] [facility] [id number] [address] [place] [address] Feb, [facility] (current) use of a nticoagulants Z79.01 and Encounter for therapeutic drug level monitoring Z51.81 [place] [address] [id number] [address] [place] [address] Feb, Encounter for long-term (cur rent) use of anticoagulants V58.61 [place] [address] [id number] [address] [place] [address] Feb, [place] [address] [facility] [id number] [address] [place] [address] Feb, Encounter for long-term (cur rent) use of anticoagulants V58.61 [place] [address] [id number] [address] [place] [address] Feb, Encounter for therapeutic dr ug level monitoring Z51.81 [place] [address] [id number] [address] [place] [address] Jan, [place] [address] [id number] [address] [place] [address] Dec, Encounter for long-term (cur rent) use of anticoagulants V58.61 and Atrial fibrillation 427.31 [place] [address] [id number] [address] [place] [address] Dec, Chest wall muscle strain S29 .011A [place] [address] [id number] [address] [place] [address] Nov, Encounter for long-term (cur rent) use of anticoagulants V58.61 and Atrial fibrillation 427.31 [place] [address] [id number] [address] [place] [address] Nov, Atrial fibrillation 427.31 [place] [address] [id number] [address] [place] [address] Nov, [place] [address] [id number] [address] [place] [address] Nov, Atrial fibrillation 427.31 [place] [address] [id number] [address] [place] [address] Nov, Atrial fibrillation 427.31 [place] [address] [id number] [address] [place] [address] Oct, Encounter for long-term (cur rent) use of anticoagulants V58.61 [place] [address] [id number] [address] [place] [address] Sep, Encounter for long-term (cur rent) use of anticoagulants V58.61 [place] [address] [id number] [address] [place] [address] Aug, Encounter for long-term (cur rent) use of anticoagulants V58.61 [facility] [address] [id number] [address] [place] [address] July, [facility] [address] [id number] [address] [place] [address] July, [facility] [address] [id number] [address] [place] [address] July, [facility] [address] [id number] [address] [place] [address] Jun, [facility] [address] [id number] [address] [place] [address] Jun, [facility] [address] [id number] [address] [place] [address] May, [facility] [address] [id number] [address] [place] [address] May, [facility] [address] [id number] [address] [place] [address] May, [facility] [address] [id number] [address] [place] [address] Apr, [facility] [address] [id number] [address] [place] [address] Apr, [facility] [address] [id number] [address] [place] [address] Apr, [facility] [address] [id number] [address] [place] [address] Apr, [facility] [address] [id number] [address] [place] [address] Apr, [facility] [address] [id number] [address] [place] [phone] Apr, [facility] [address] [id number] [address] [place] [address] Apr, [facility] [address] [id number] [address] [place] [address], [place] [address] Mar, [facility] [address] [id number] [address] [place] [address], [place] [address] Mar, [facility] [address] [id number] [address] [place] [address], [place] [address] Mar, [facility] [address] [id number] [address] [place] [address], [place] [address] Mar, [facility] [address] [id number] [address] [place] [address], [place] [address] Mar, [facility] [address] [id number] [address] [place] [address], [place] [address] Mar, [facility] [address] [id number] [address] [place] [address], [place] [address] Mar, [facility] [address] [id number] [address] [place] [address], [place] [address] Mar, [facility] [address] [id number] [address] [place] [address], [place] [address] Feb, [facility] [address] [id number] [address] [place] [address], [place] [address] Feb, [facility] [address] [id number] [address] [place] [address], [place] [address] Feb, [facility] [address] [id number] [address] [place] [address], [place] [address] Feb, [facility] [address] [id number] [address] [place] [address], [place] [address] Feb, [facility] [address] [id number] [address] [place] [address], [place] [address] Feb, [facility] [address] [id number] [address] [place] [address], [place] [address] Jan, [facility] [address] [id number] [address] [place] [address] [place] [address] Jan, [facility] [address] [id number] [address] [place] [address], [place] [address] Jan, [facility] [address] [id number] [address] [place] [address], [place] [address] Jan, [facility] [address] [id number] [address] [place] [address], [place] [address] Jan, [facility] [address] [id number] [address] [place] [address], [place] [address] Jan, [facility] [address] [id number] [address] [place] [address], [place] [address] Dec, [facility] [address] [id number] [address] [place] [address], [place] [address] Dec, [facility] [address] [id number] [address] [place] [address], [place] [address] Dec, [facility] [address] [id number] [address] [place] [address], [place] [address] Dec, [facility] [address] [id number] [address] [place] [address], [place] [address] Nov, [facility] [address] [id number] [address] [place] [address], [place] [address] Nov, [facility] [address] [id number] [address] [place] [address], [place] [address] Oct, [facility] [address] [id number] [address] [place] [address], [place] [address] Oct, [facility] [address] [id number] [address] [place] [address], [place] [address] Oct, [facility] [address] [id number] [address] [place] [address], [place] [address] Oct, [facility] [address] [id number] [address] [place] [address], [place] [address] Oct, [facility] [address] [id number] [facility] [address] Oct, [facility] [address] [id number] [facility] [address] Sep, [facility] [address] [id number] [facility] [address] Sep, [facility] [address] [id number] [address] [place] [address], [place] [address] Sep, [facility] [address] [id number] [address] [place] [address], [place] [address] Sep, [facility] [address] [id number] [address] [place] [address], [place] [address] Sep, [facility] [address] [id number] [address] [place] [address], [place] [address] Sep, [facility] [address] [id number] [address] [place] [address], [place] [address] Sep, [facility] [address] [id number] [address] [place] [address], [place] [address] Sep, [facility] [address] [id number] [address] [place] [address], [place] [address] Sep, [facility] [address] [id number] [address] [place] [address], [place] [address] Sep, [facility] [address] [address] [id number] [address] [place] [address], [place] [id number] Sep, [facility] [address] [id number] [address] [place] [address], [place] [id number] Sep, [facility] [address] [id number] [address] [place] [address], [place] [id number] Sep, [facility] [address] [id number] [address] [place] [address], [place] [id number] Sep, [facility] [address] [id number] [address] [place] [address], [place] [phone] Feb, [facility] [address] [facility] [id number] [address] [place] [id number] Feb, [facility] [address] [facility] [id number] [address] [place] [id number] July, [facility] [address] [facility] [id number] [address] [place] [id number] Apr, [facility] [address] [facility] [id number] [address] [place] [id number] Apr, [facility] [address] [facility] [id number] [address] [place] [id number] Apr, [facility] [address] [facility] [id number] [address] [place] [id number] Apr, IMMUNIZATIONS No Known Immunizations SOCIAL HISTORY [...] Intubation with ET tube and transferred to [facility] Trach placed 03/2017 due to [...]
--- OUTSIDE RECORDS SUMMARY | 2019-10-28 09:58 | XMS REPORT ---
Author Author Je AMADOR Organization [facility] Address [address] [place] [address] Care Team Providers Care Administrative Assistant Office Manager Name Role Phone KARI AMADOR Unavailable PROBLEMS Type Condition ICD9-CM Code GTX66-ED Code Onset Dates Condition S tatus SNOMED Code Problem Anoxic brain injury G93.1 Active 516591865 Problem Cardiomyopathy I42.9 Active 99341 001 Problem terminal carman (current) use of anticoagulants Z79.01 Active 679062963 Problem Adjustment disorder with depressed mood F43.21 Active 66648381 Problem History of MO (myocardial infarction) I25.2 Active 162351927 Problem Chronic atrial fibrillation I48.2 Ac tive 501989209 Problem Non-ischemic cardiomyopathy I42.8 Ac tive 76494267 Problem History of cardiac arrest Z86.74 Acti ve 463742598 Problem Cardiac defibrillator in place Z95.810 Active 573015800 ALLERGIES No Information ENCOUNTERS Encounter Location Date Diagnosis [facility] [address] [id number] [address] [place] [address] [id number] Nov, [facility] [address] [id number] [address] [place] [address] [id number] Sep, Caries K02.9 [facility] [address] [id number] [address] [place] [address] [id number] Aug, Caries K02.9 [facility] [address] [id number] [address] [place] [address] [id number] July, Caries K02.9 [facility] [address] [id number] [address] [place] [address] [id number] July, Dental examination Z01.20 [facility] [address] [id number] [address] [place] [address] [id number] July, Caries K02.9 [facility] [address] [id number] [address] [place] [phone] Jun, [facility] [id number] [place] [address] [id number] Jun, Caries K02.9 [facility] [address] [facility] [id number] [address] [place] [phone] Jun, Chronic atrial fibrillation I48.2 ; terminal carman (current) use of anticoagulants Z79.01 ; Cardiomyopathy I42.9 and Cardiac defibrillator in place Z95.810 [facility] [address] [id number] [place] [address] [id number] May, Caries K02.9 [facility] [address] [id number] [address] [place] [phone] Apr, History of MO (myocardial in farction) I25.2 and SOB (shortness of breath) R06.02 [facility] [address] [id number] [address] [place] [phone] Apr, [facility] [address] [id number] [address] [place] [phone] Apr, [facility] [address] [id number] [address] [place] [phone] Apr, Canker sore K12.0 [facility] [address] [facility] [id number] [address] [place] [address] [id number] Apr, Dental examination Z01.20 [facility] [address] [facility] [id number] [place] [address] [phone] Mar, Caries K02.9 [facility] [address] [id number] [address] [place] [phone] Feb, Surgery follow-up Z09 [facility] [address] [facility] [id number] [address] [place] [address] [id number] Feb, Caries K02.9 [facility] [address] [id number] [address] [place] [address] [id number] Jan, Caries K02.9 [facility] [address] [facility] [id number] [address] [place] [phone] Oct, Foreign body in subcutaneous tissue T14.8XXA [facility] [address] [id number] [address] [place] [phone] Sep, Chronic atrial fibrillation I48.2 ; Non-ischemic cardiomyopathy I42.8 ; Anoxic brain injury G93.1 and Adjustment disorder with depressed mood F43.21 [facility] [address] [id number] [address] [place] [phone] Aug, [facility] [address] [id number] [address] [place] [phone] July, [facility] [address] [facility] [id number] [address] [place] [phone] July, [facility] [address] [facility] [id number] [address] [place] [phone] Jun, Adjustment disorder with dep ressed mood F43.21 [facility] [address] [id number] [address] [place] [phone] Jun, [facility] [address] [facility] [id number] [address] [place] [phone] Jun, [facility] [address] [facility] [id number] [address] [place] [phone] May, [facility] [address] [id number] [address] [place] [phone] May, [facility] [address] [facility] [id number] [address] [place] [phone] May, [facility] [address] [facility] [id number] [address] [place] [phone] May, [facility] [address] [facility] [id number] [address] [place] [phone] 13 Mar, 2018 History of cardiac arrest Z8 6.74 ; Cardiac defibrillator in place Z95.810 ; Chronic atrial fibrillation I48.2 and Current moderate episode of major depressive disorder without prior episode F32.1 [facility] [address] [id number] [address] [place] [phone] May, [facility] [address] [facility] [id number] [address] [place] [phone] Mar, intermediate (current) use of a nticoagulants Z79.01 [facility] [address] [id number] [address] [place] [address] Mar, [facility] [address] [facility] [id number] [address] [place] [phone] Mar, intermediate (current) use of a nticoagulants Z79.01 [facility] [address] [facility] [id number] [address] [place] [address] Feb, Afib I48.91 [facility] [address] [facility] [id number] [address] [place] [phone] Feb, intermediate (current) use of a nticoagulants Z79.01 [facility] [address] [facility] [id number] [address] [place] [phone] Jan, Other viral agents as the ca use of diseases classified elsewhere B97.89 ; Acute upper respiratory infection, unspecified J06.9 and Body aches R52 [place] [address] [facility] [id number] [address] [place] [address] Jan, Afib I48.91 [place] [address] [facility] [id number] [address] [place] [address] Jan, Afib I48.91 and intermediate (c urrent) use of anticoagulants Z79.01 [facility] [address] [id number] [address] [place] [phone] Dec, Afib I48.[address] [facility] [address] [facility] [id number] [address] [place] [phone] Dec, Chronic atrial fibrillation I48.2 [place] [address] [id number] [address] [place] [address] Nov, Hypertension I10 [place] [address] [facility] [id number] [address] [place] [phone] Oct, Chronic atrial fibrillation I48.2 [place] [address] [facility] [id number] [address] [place] [phone] Oct, intermediate (current) use of a nticoagulants Z79.01 [place] [address] [id number] [address] [place] [address] Oct, Chronic atrial fibrillation I48.2 [place] [address] [facility] [id number] [address] [place] [address] Oct, Chronic atrial fibrillation I48.2 [place] [address] [facility] [id number] [address] [place] [address] Sep, intermediate (current) use of a nticoagulants Z79.01 ; Hypertension I10 ; Cardiomyopathy I42.9 and Afib I48.91 [place] [address] [facility] [id number] [address] [place] [address] Sep, intermediate (current) use of a nticoagulants Z79.01 ; Hypertension I10 ; Cardiomyopathy I42.9 and Afib I48.91 [place] [address] [id number] [address] [place] [address] Aug, intermediate (current) use of a nticoagulants Z79.01 [place] [address] [id number] [address] [place] [address] Aug, intermediate (current) use of a nticoagulants Z79.01 [place] [address] [facility] [id number] [address] [place] [address] Aug, intermediate (current) use of a nticoagulants Z79.01 [place] [address] [id number] [address] [place] [address] July, intermediate (current) use of a nticoagulants Z79.01 [facility] [address] [id number] [address] [place] [address] Jun, intermediate (current) use of a nticoagulants Z79.01 [facility] [address] [id number] [address] [place] [address] Jun, terminal carman (current) use of a nticoagulants Z79.01 [place] [address] [id number] [address] [place] [address] May, Chronic atrial fibrillation I48.2 [place] [address] [facility] [id number] [address] [place] [address] May, [place] [address] [id number] [address] [place] [address] May, terminal carman (current) use of a nticoagulants Z79.01 [place] [address] [id number] [address] [place] [address] 10 May, 2016 terminal carman (current) use of a nticoagulants Z79.01 [place] [address] [id number] [address] [place] [address] May, Afib I48.91 ; Non-ischemic c ardiomyopathy I42.8 ; Hypotension, unspecified hypotension type I95.9 and Heart palpitations R00.2 [place] [address] [id number] [address] [place] [phone] 16 Apr, 2016 intermediate (current) use of a nticoagulants Z79.01 [place] [address] [facility] [id number] [address] [place] [phone] 13 Apr, 2016 intermediate (current) use of a nticoagulants Z79.01 [place] [address] [facility] [id number] [address] [place] [address] Mar, terminal carman (current) use of a nticoagulants Z79.01 [facility] [address] [id number] [address] [place] [phone] Feb, terminal carman (current) use of a nticoagulants Z79.01 [facility] [address] [id number] [address] [place] [address] Feb, intermediate (current) use of a nticoagulants Z79.01 [facility] [address] [id number] [address] [place] [address] Jan, intermediate (current) use of a nticoagulants Z79.01 [place] [address] [id number] [address] [place] [address] Jan, intermediate (current) use of a nticoagulants Z79.01 [place] [address] [id number] [address] [place] [address] Dec, intermediate (current) use of a nticoagulants Z79.01 [facility] [address] [id number] [address] [place] [address] Dec, terminal carman (current) use of a nticoagulants Z79.01 [facility] [address] [id number] [address] [place] [address] Oct, intermediate (current) use of a nticoagulants Z79.01 [facility] [address] [id number] [address] [place] [address] Oct, terminal carman (current) use of a nticoagulants Z79.01 [place] [address] [facility] [id number] [address] [place] [address] Oct, Afib I48.91 ; Cardiomyopathy I42.9 ; Palpitations R00.2 and Non- rheumatic tricuspid valve insufficiency I36.1 [place] [address] [id number] [address] [place] [address] Sep, Chronic atrial fibrillation I48.2 ; terminal carman (current) use of anticoagulants Z79.01 ; Cardiomyopathy I42.9 and Hypertension I10 [facility] [address] [facility] [id number] [address] [place] [address] Aug, Allergic rhinitis, unspecifi ed allergic rhinitis type J30.9 [facility] [address] [id number] [address] [place] [phone] Aug, intermediate (current) use of a nticoagulants Z79.01 [facility] [address] [id number] [address] [place] [address] Jun, intermediate (current) use of a nticoagulants Z79.01 [facility] [address] [facility] [id number] [address] [place] [address] Jun, terminal carman (current) use of a nticoagulants Z79.01 [facility] [address] [id number] [address] [place] [address] Jun, terminal carman (current) use of a nticoagulants Z79.01 [facility] [address] [id number] [address] [place] [address] Jun, [facility] [address] [id number] [address] [place] [address] May, Encounter for long-term (cur rent) use of anticoagulants V58.61 [facility] [address] [id number] [address] [place] [address] May, Encounter for long-term (cur rent) use of anticoagulants V58.61 [place] [address] [id number] [address] [place] [address] May, Encounter for long-term (cur rent) use of anticoagulants V58.61 [facility] [address] [facility] [id number] [address] [place] [address] Apr, Encounter for long-term (cur rent) use of anticoagulants V58.61 [place] [address] [facility] [id number] [address] [place] [address] Apr, intermediate (current) use of a nticoagulants Z79.01 [place] [address] [facility] [id number] [address] [place] [address] Apr, Afib I48.91 ; Hypertension I 10 ; Cardiomyopathy I42.9 and Palpitations R00.2 [place] [address] [facility] [id number] [address] [place] [address] Mar, intermediate (current) use of a nticoagulants Z79.01 [place] [address] [facility] [id number] [address] [place] [address] Mar, Encounter for long-term (cur rent) use of anticoagulants V58.61 [place] [address] [place] [id number] [address] [place] [address] Mar, Encounter for long-term (cur rent) use of anticoagulants V58.61 [place] [address] [place] [id number] [address] [place] [address] Mar, terminal carman (current) use of a nticoagulants Z79.01 and Encounter for therapeutic drug level monitoring Z51.81 [place] [address] [facility] [id number] [address] [place] [address] Feb, intermediate (current) use of a nticoagulants Z79.01 and Encounter for therapeutic drug level monitoring Z51.81 [place] [address] [facility] [id number] [address] [place] [address] Feb, Encounter for long-term (cur rent) use of anticoagulants V58.61 [place] [address] [facility] [id number] [address] [place] [address] Feb, [place] [address] [facility] [id number] [address] [place] [address] Feb, Encounter for long-term (cur rent) use of anticoagulants V58.61 [place] [address] [id number] [address] [place] [address] Feb, Encounter for therapeutic dr ug level monitoring Z51.81 [place] [address] [id number] [address] [place] [address] Jan, [place] [address] [facility] [id number] [address] [place] [address] Dec, Encounter for long-term (cur rent) use of anticoagulants V58.61 and Atrial fibrillation 427.31 [place] [address] [id number] [address] [place] [address] Dec, Chest wall muscle strain S29 .011A [place] [address] [id number] [address] [place] [address] Nov, Encounter for long-term (cur rent) use of anticoagulants V58.61 and Atrial fibrillation 427.31 [place] [address] [id number] [address] [place] [address] Nov, Atrial fibrillation 427.31 [place] [address] [id number] [address] [place] [address] Nov, [place] [address] [id number] [address] [place] [address] Nov, Atrial fibrillation 427.31 [place] [address] [id number] [address] [place] [address] Nov, Atrial fibrillation 427.31 [place] [address] [id number] [address] [place] [address] Oct, Encounter for long-term (cur rent) use of anticoagulants V58.61 [place] [address] [id number] [address] [place] [address] Sep, Encounter for long-term (cur rent) use of anticoagulants V58.61 [place] [address] [id number] [address] [place] [address] Aug, Encounter for long-term (cur rent) use of anticoagulants V58.61 [facility] [address] [id number] [address] [place] [address] July, [facility] [address] [id number] [address] [place] [address] July, [facility] [address] [id number] [address] [place] [address] July, [facility] [address] [id number] [address] [place] [phone] Jun, [facility] [address] [id number] [address] [place] [address] Jun, [facility] [address] [id number] [address] [place] [address] May, [facility] [address] [id number] [address] [place] [address] May, [facility] [address] [id number] [address] [place] [phone] May, [facility] [address] [id number] [address] [place] [address] Apr, [facility] [address] [id number] [address] [place] [address] Apr, [facility] [address] [id number] [address] [place] [address] Apr, [facility] [address] [id number] [address] [place] [address] Apr, [facility] [address] [id number] [address] [place] [address] Apr, [facility] [address] [id number] [address] [place] [address] Apr, [facility] [address] [id number] [address] [place] [address] Apr, [facility] [address] [id number] [address] [place] [address], [place] [address] Mar, [facility] [address] [id number] [address] [place] [address], [place] [address] Mar, [facility] [address] [id number] [address] [place] [address], [place] [address] Mar, [facility] [address] [id number] [address] [place] [address], [place] [address] Mar, [facility] [address] [id number] [address] [place] [address], [place] [address] Mar, [facility] [address] [id number] [address] [place] [address], [place] [address] Mar, [facility] [address] [id number] [address] [place] [address], [place] [address] Mar, [facility] [address] [id number] [address] [place] [address], [place] [address] Mar, [facility] [address] [id number] [address] [place] [address], [place] [address] Feb, [facility] [address] [id number] [address] [place] [address], [place] [address] Feb, [facility] [address] [id number] [address] [place] [address], [place] [address] Feb, [facility] [address] [id number] [address] [place] [address], [place] [address] Feb, [facility] [address] [id number] [address] [place] [address], [place] [address] Feb, [facility] [address] [id number] [address] [place] [address], [place] [address] Feb, [facility] [address] [id number] [address] [place] [address], [place] [address] Jan, [facility] [address] [id number] [address] [place] [address], [place] [address] Jan, [facility] [address] [id number] [address] [place] [address], [place] [address] Jan, [facility] [address] [id number] [address] [place] [address], [place] [address] Jan, [facility] [address] [id number] [address] [place] [address], [place] [address] Jan, [facility] [address] [id number] [address] [place] [address], [place] [address] Jan, [facility] [address] [id number] [address] [place] [address], [place] [address] Dec, [facility] [address] [id number] [address] [place] [address], [place] [address] Dec, [facility] [address] [id number] [address] [place] [address], [place] [address] Dec, [facility] [address] [id number] [address] [place] [address], [place] [address] Dec, [facility] [address] [id number] [address] [place] [address], [place] [address] Nov, [facility] [address] [id number] [address] [place] [address], [place] [address] Nov, [facility] [address] [id number] [address] [place] [address], [place] [address] Oct, [facility] [address] [id number] [address] [place] [address], [place] [address] Oct, [facility] [address] [id number] [address] [place] [address], [place] [address] Oct, [facility] [address] [id number] [address] [place] [address], [place] [address] Oct, [facility] [address] [id number] [address] [place] [address], [place] [address] Oct, [facility] [address] [id number] [facility] [place] [address] Oct, [facility] [address] [id number] [address] [place] [address], [place] [address] Sep, [facility] [address] [id number] [facility] [place] [address] Sep, [facility] [address] [id number] [address] [place] [address], [place] [address] Sep, [facility] [address] [id number] [address] [place] [address], [place] [address] Sep, [facility] [address] [id number] [address] [place] [address], [place] [address] Sep, [facility] [address] [id number] [address] [place] [address], [place] [address] Sep, [facility] [address] [id number] [address] [place] [address], [place] [address] Sep, [facility] [address] [id number] [address] [place] [address], [place] [address] Sep, [facility] [address] [id number] [address] [place] [address], [place] [address] Sep, [facility] [address] [id number] [address] [place] [address], [place] [address] Sep, [facility] [address] [id number] [address] [place] [address], [place] [address] Sep, [facility] [address] [id number] [address] [place] [address], [place] [address] Sep, [facility] [address] [id number] [address] [place] [address], [place] [address] Sep, [facility] [address] [id number] [address] [place] [address], [place] [address] Sep, [facility] [address] [id number] [address] [place] [address], [place] [address] Feb, [facility] [address] [facility] [id number] [address] [place] [id number] Feb, [facility] [address] [facility] [id number] [address] [place] [id number] July, [facility] [address] [facility] [id number] [address] [place] [id number] Apr, [facility] [address] [facility] [id number] [address] [place] [id number] Apr, [facility] [address] [facility] [id number] [address] [place] [id number] Apr, [facility] [address] [facility] [id number] [address] [place] [address] Apr, IMMUNIZATIONS No Known Immunizations SOCIAL HISTORY [...] Intubation with ET tube and transferred to [facility] Trach placed 03/2017 due to A Fib resulting in anoxic brain injury and memory loss Medical History 03/02-03/03/18 heart surgery Surgical History Defibrillation placed 2017 Surgical History Trach/PEG Tube placed and removed [facility] a fter Intubation 2017 Surgical History heart surgery 2018 Surgical History heart surgery 03/02-03/03/18 Hospitalization History ICU for Afib 09/2013 Hospitalization History Admitted to Transferred to [facility] ICU/ Rehab 03/2017 Hospitalization History Coded, Defribrillated and ET tube placed for ventillation and transferred to [facility] 03/2017 Hospitalization History surgery 09/29/2017 Hospitalization History heart surgery 03/02-03/03/18
--- OUTSIDE RECORDS SUMMARY | 2019-10-28 09:58 | XMS REPORT ---
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.01 Active 377178922 Problem Adjustment disorder with depressed mood F43.21 Active 26596199 Problem History of RI (myocardial infarction) I25.2 Active 664719387 Problem Chronic atrial fibrillation I48.2 Ac tive 515900288 Problem Non-ischemic cardiomyopathy I42.8 Ac tive 13374453 Problem History of cardiac arrest Z86.74 Acti ve 551824312 Problem Cardiac defibrillator in place Z95.810 Active [id number] ALLERGIES No Information ENCOUNTERS Encounter Location Date Diagnosis [facility] [address] [id number] [address] [place] [address] [id number] Nov, [facility] [address] [id number] [address] [place] [address] [id number] Sep, Caries K02.9 [facility] [address] [id number] [address] [place] [address] [id number] Aug, Caries K02.9 [facility] [address] [id number] [address] [place] [address] [id number] July, Caries K02.9 [facility] [address] [id number] [address] [place] [address] [id number] July, Dental examination Z01.20 [facility] [address] [id number] [address] [place] [address] [id number] July, Caries K02.9 [facility] [address] [id number] [address] [place] [phone] Jun, [facility] [address] [id number] [place] [address] [id number] Jun, Caries K02.9 [facility] [address] [facility] [id number] [address] [place] [phone] Jun, Chronic atrial fibrillation I48.2 ; 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.01 ; Cardiomyopathy I42.9 and Cardiac defibrillator in place Z95.810 [facility] [address] [id number] [place] [address] [id number] May, Caries K02.9 [facility] [address] [id number] [address] [place] [phone] Apr, History of RI (myocardial in farction) I25.2 and SOB (shortness of breath) R06.02 [facility] [address] [id number] [address] [place] [phone] Apr, [facility] [address] [id number] [address] [place] [phone] Apr, [facility] [address] [id number] [address] [place] [phone] Apr, Canker sore K12.0 [facility] [address] [facility] [id number] [address] [place] [address] [id number] Apr, Dental examination Z01.20 [facility] [address] [facility] [id number] [place] [address] [id number] Mar, Caries K02.9 [facility] [address] [id number] [address] [place] [phone] Feb, Surgery follow-up Z09 [facility] [address] [facility] [id number] [address] [place] [address] [id number] Feb, Caries K02.9 [facility] [address] [id number] [address] [place] [address] [id number] Jan, Caries K02.9 [facility] [address] [facility] [id number] [address] [place] [phone] Oct, Foreign body in subcutaneous tissue T14.8XXA [facility] [address] [id number] [address] [place] [phone] Sep, Chronic atrial fibrillation I48.2 ; Non-ischemic cardiomyopathy I42.8 ; Anoxic brain injury G93.1 and Adjustment disorder with depressed mood F43.21 [facility] [address] [id number] [address] [place] [phone] Aug, [facility] [address] [id number] [address] [place] [phone] July, [facility] [address] [facility] [id number] [address] [place] [phone] July, [facility] [address] [facility] [id number] [address] [place] [phone] Jun, Adjustment disorder with dep ressed mood F43.21 [facility] [address] [id number] [address] [place] [phone] Jun, [facility] [address] [facility] [id number] [address] [place] [phone] Jun, [facility] [address] [facility] [id number] [address] [place] [phone] May, [facility] [address] [id number] [address] [place] [phone] May, [facility] [address] [facility] [id number] [address] [place] [phone] May, [facility] [address] [facility] [id number] [address] [place] [phone] May, [facility] [address] [facility] [id number] [address] [place] [phone] 13 Mar, 2018 History of cardiac arrest Z8 6.74 ; Cardiac defibrillator in place Z95.810 ; Chronic atrial fibrillation I48.2 and Current moderate episode of major depressive disorder without prior episode F32.1 [facility] [address] [id number] [address] [place] [phone] May, [facility] [address] [facility] [id number] [address] [place] [phone] Mar, alf (current) use of a nticoagulants Z79.01 [facility] [address] [id number] [address] [place] [phone] Mar, [facility] [address] [facility] [id number] [address] [place] [address] Mar, alf (current) use of a nticoagulants Z79.01 [facility] [address] [facility] [id number] [address] [place] [phone] Feb, Afib I48.91 [facility] [address] [facility] [id number] [address] [place] [phone] Feb, alf (current) use of a nticoagulants Z79.01 [facility] [address] [facility] [id number] [address] [place] [phone] Jan, Other viral agents as the ca use of diseases classified elsewhere B97.89 ; Acute upper respiratory infection, unspecified J06.9 and Body aches R52 [place] [address] [facility] [id number] [address] [place] [phone] Jan, Afib I48.91 [place] [address] [facility] [id number] [address] [place] [phone] Jan, Afib I48.91 and alf (c urrent) use of anticoagulants Z79.01 [facility] [address] [id number] [address] [place] [address] Dec, Afib I48.91 [facility] [address] [facility] [id number] [address] [place] [phone] Dec, Chronic atrial fibrillation I48.2 [place] [address] [id number] [address] [place] [address] Nov, Hypertension I10 [place] [address] [facility] [id number] [address] [place] [phone] Oct, Chronic atrial fibrillation I48.2 [place] [address] [facility] [id number] [address] [place] [phone] Oct, alf (current) use of a nticoagulants Z79.01 [place] [address] [id number] [address] [place] [phone] Oct, Chronic atrial fibrillation I48.2 [place] [address] [facility] [id number] [address] [place] [phone] Oct, Chronic atrial fibrillation I48.2 [place] [address] [facility] [id number] [address] [place] [phone] Sep, alf (current) use of a nticoagulants Z79.01 ; Hypertension I10 ; Cardiomyopathy I42.9 and Afib I48.91 [place] [address] [facility] [id number] [address] [place] [phone] Sep, alf (current) use of a nticoagulants Z79.01 ; Hypertension I10 ; Cardiomyopathy I42.9 and Afib I48.91 [place] [address] [id number] [address] [place] [phone] Aug, alf (current) use of a nticoagulants Z79.01 [place] [address] [id number] [address] [place] [phone] Aug, alf (current) use of a nticoagulants Z79.01 [place] [address] [facility] [id number] [address] [place] [address] Aug, alf (current) use of a nticoagulants Z79.01 [place] [address] [id number] [address] [place] [phone] July, alf (current) use of a nticoagulants Z79.01 [facility] [address] [id number] [address] [place] [phone] Jun, alf (current) use of a nticoagulants Z79.01 [facility] [address] [id number] [address] [place] [address] Jun, 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 Z79.01 [place] [address] [id number] [address] [place] [address] May, Chronic atrial fibrillation I48.2 [place] [address] [facility] [id number] [address] [place] [phone] May, [place] [address] [id number] [address] [place] [address] May, 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 Z79.01 [place] [address] [id number] [address] [place] [phone] 10 May, 2016 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 Z79.01 [place] [address] [id number] [address] [place] [address] May, Afib I48.91 ; Non-ischemic c ardiomyopathy I42.8 ; Hypotension, unspecified hypotension type I95.9 and Heart palpitations R00.2 [place] [address] [id number] [address] [place] [phone] 16 Apr, 2016 alf (current) use of a nticoagulants Z79.01 [place] [address] [facility] [id number] [address] [place] [phone] 13 Apr, 2016 alf (current) use of a nticoagulants Z79.01 [place] [address] [facility] [id number] [address] [place] [phone] Mar, 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 Z79.01 [facility] [address] [id number] [address] [place] [phone] Feb, 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 Z79.01 [facility] [address] [id number] [address] [place] [address] Feb, alf (current) use of a nticoagulants Z79.01 [facility] [address] [id number] [address] [place] [phone] Jan, alf (current) use of a nticoagulants Z79.01 [place] [address] [id number] [address] [place] [phone] Jan, alf (current) use of a nticoagulants Z79.01 [place] [address] [id number] [address] [place] [address] Dec, alf (current) use of a nticoagulants Z79.01 [facility] [address] [id number] [address] [place] [address] Dec, 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 Z79.01 [facility] [address] [id number] [address] [place] [address] Oct, alf (current) use of a nticoagulants Z79.01 [facility] [address] [id number] [address] [place] [phone] Oct, 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 Z79.01 [place] [address] [facility] [id number] [address] [place] [address] Oct, Afib I48.91 ; Cardiomyopathy I42.9 ; Palpitations R00.2 and Non- rheumatic tricuspid valve insufficiency I36.1 [place] [address] [id number] [address] [place] [phone] Sep, Chronic atrial fibrillation I48.2 ; 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01 [facility] [address] [facility] [id number] [address] [place] [phone] Jun, 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 Z79.01 [facility] [address] [id number] [address] [place] [phone] Jun, 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 Z79.01 [facility] [address] [id number] [address] [place] [phone] Jun, [facility] [address] [id number] [address] [place] [phone] May, Encounter for long-term (cur rent) use of anticoagulants V58.61 [facility] [address] [id number] [address] [place] [address] May, Encounter for long-term (cur rent) use of anticoagulants V58.61 [place] [address] [id number] [address] [place] [address] May, Encounter for long-term (cur rent) use of anticoagulants V58.61 [facility] [address] [facility] [id number] [address] [place] [phone] Apr, Encounter for long-term (cur rent) use of anticoagulants V58.61 [place] [address] [facility] [id number] [address] [place] [address] Apr, alf (current) use of a nticoagulants Z79.01 [place] [address] [facility] [id number] [address] [place] [address] Apr, Afib I48.91 ; Hypertension I 10 ; Cardiomyopathy I42.9 and Palpitations R00.2 [place] [address] [facility] [id number] [address] [place] [address] Mar, alf (current) use of a nticoagulants Z79.01 [place] [address] [facility] [id number] [address] [place] [address] Mar, Encounter for long-term (cur rent) use of anticoagulants V58.61 [place] [address] [place] [id number] [address] [place] [address] Mar, Encounter for long-term (cur rent) use of anticoagulants V58.61 [place] [address] [place] [id number] [address] [place] [address] Mar, 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 Z79.01 and Encounter for therapeutic drug level monitoring Z51.81 [place] [address] [facility] [id number] [address] [place] [address] Feb, alf (current) use of a nticoagulants Z79.01 and Encounter for therapeutic drug level monitoring Z51.81 [place] [address] [facility] [id number] [address] [place] [address] Feb, Encounter for long-term (cur rent) use of anticoagulants V58.61 [place] [address] [facility] [id number] [address] [place] [address] Feb, [place] [address] [facility] [id number] [address] [place] [address] Feb, Encounter for long-term (cur rent) use of anticoagulants V58.61 [place] [address] [id number] [address] [place] [address] Feb, Encounter for therapeutic dr ug level monitoring Z51.81 [place] [address] [id number] [address] [place] [address] Jan, [place] [address] [facility] [id number] [address] [place] [address] Dec, Encounter for long-term (cur rent) use of anticoagulants V58.61 and Atrial fibrillation 427.31 [place] [address] [id number] [address] [place] [address] Dec, Chest wall muscle strain S29 .011A [place] [address] [id number] [address] [place] [address] Nov, Encounter for long-term (cur rent) use of anticoagulants V58.61 and Atrial fibrillation 427.31 [place] [address] [id number] [address] [place] [address] Nov, Atrial fibrillation 427.31 [place] [address] [id number] [address] [place] [address] Nov, [place] [address] [id number] [address] [place] [address] Nov, Atrial fibrillation 427.31 [place] [address] [id number] [address] [place] [address] Nov, Atrial fibrillation 427.31 [place] [address] [id number] [address] [place] [address] Oct, Encounter for long-term (cur rent) use of anticoagulants V58.61 [place] [address] [id number] [address] [place] [address] Sep, Encounter for long-term (cur rent) use of anticoagulants V58.61 [place] [address] [id number] [address] [place] [address] Aug, Encounter for long-term (cur rent) use of anticoagulants V58.61 [facility] [address] [id number] [address] [place] [address] July, [facility] [address] [id number] [address] [place] [address] July, [facility] [address] [id number] [address] [place] [address] July, [facility] [address] [id number] [address] [place] [address] Jun, [facility] [address] [id number] [address] [place] [phone] Jun, [facility] [address] [id number] [address] [place] [phone] May, [facility] [address] [id number] [address] [place] [address] May, [facility] [address] [id number] [address] [place] [phone] May, [facility] [address] [id number] [address] [place] [address] Apr, [facility] [address] [id number] [address] [place] [address] Apr, [facility] [address] [id number] [address] [place] [phone] Apr, [facility] [address] [id number] [address] [place] [phone] Apr, [facility] [address] [id number] [address] [place] [address] Apr, [facility] [address] [id number] [address] [place] [phone] Apr, [facility] [address] [id number] [address] [place] [address] Apr, [facility] [address] [id number] [address] [place] [address], [place] [id number] Mar, [facility] [address] [id number] [address] [place] [address], [place] [id number] Mar, [facility] [address] [id number] [address] [place] [address], [place] [id number] Mar, [facility] [address] [id number] [address] [place] [address], [place] [id number] Mar, [facility] [address] [id number] [address] [place] [address], [place] [id number] Mar, [facility] [address] [id number] [address] [place] [address], [place] [phone] Mar, [facility] [address] [id number] [address] [place] [address], [place] [id number] Mar, [facility] [address] [id number] [address] [place] [address], [place] [id number] Mar, [facility] [address] [id number] [address] [place] [address], [place] [id number] Feb, [facility] [address] [id number] [address] [place] [address], [place] [id number] Feb, [facility] [address] [id number] [address] [place] [address], [place] [address] Feb, [facility] [address] [id number] [address] [place] [address], [place] [address] Feb, [facility] [address] [id number] [address] [place] [address], [place] [id number] Feb, [facility] [address] [id number] [address] [place] [address], [place] [address] Feb, [facility] [address] [id number] [address] [place] [address], [place] [id number] Jan, [facility] [address] [id number] [address] [place] [address], [place] [id number] Jan, [facility] [address] [id number] [address] [place] [address], [place] [id number] Jan, [facility] [address] [id number] [address] [place] [address], [place] [address] Jan, [facility] [address] [id number] [address] [place] [address], [place] [address] Jan, [facility] [address] [id number] [address] [place] [address], [place] [id number] Jan, [facility] [address] [id number] [address] [place] [address], [place] [address] Dec, [facility] [address] [id number] [address] [place] [address], [place] [address] Dec, [facility] [address] [id number] [address] [place] [address], [place] [address] Dec, [facility] [address] [id number] [address] [place] [address], [place] [address] Dec, [facility] [address] [id number] [address] [place] [address], [place] [address] Nov, [facility] [address] [id number] [address] [place] [address], [place] [address] Nov, [facility] [address] [id number] [address] [place] [address], [place] [address] Oct, [facility] [address] [id number] [address] [place] [address], [place] [address] Oct, [facility] [address] [id number] [address] [place] [address], [place] [address] Oct, [facility] [address] [id number] [address] [place] [address], [place] [address] Oct, [facility] [address] [id number] [address] [place] [address], [place] [address] Oct, [facility] [address] [id number] [facility] [place] [address] Oct, [facility] [address] [id number] [address] [place] [address], [place] [address] Sep, [facility] [address] [id number] [facility] [place] [address] Sep, [facility] [address] [id number] [address] [place] [address], [place] [address] Sep, [facility] [address] [id number] [address] [place] [address], [place] [address] Sep, [facility] [address] [id number] [address] [place] [address], [place] [id number] Sep, [facility] [address] [id number] [address] [place] [address], [place] [id number] Sep, [facility] [address] [id number] [address] [place] [address], [place] [id number] Sep, [facility] [address] [id number] [address] [place] [address], [place] [id number] Sep, [facility] [address] [id number] [address] [place] [address], [place] [id number] Sep, [facility] [address] [id number] [address] [place] [address], [place] [id number] Sep, [facility] [address] [id number] [address] [place] [address], [place] [id number] Sep, [facility] [address] [id number] [address] [place] [address], [place] [id number] Sep, [facility] [address] [id number] [address] [place] [address], [place] [id number] Sep, [facility] [address] [id number] [address] [place] [address], [place] [id number] Sep, [facility] [address] [id number] [address] [place] [address], [place] [id number] Feb, [facility] [address] [facility] [id number] [address] [place] [id number] Feb, [facility] [address] [facility] [id number] [address] [place] [phone] July, [facility] [address] [facility] [id number] [address] [place] [phone] Apr, [facility] [address] [facility] [id number] [address] [place] [id number] Apr, [facility] [address] [facility] [id number] [address] [place] [id number] Apr, [facility] [address] [facility] [id number] [address] [place] [id number] Apr, IMMUNIZATIONS No Known Immunizations SOCIAL HISTORY Never Assessed REASON FOR VISIT PLAN OF CARE VITAL SIGNS Height 64 in 2014-02-10 Weight 201.8 lbs 2014-02-10 Temperature 98.4 degrees Fahrenheit 2014-02-10 Heart Rate 52 bpm 2014-02-10 Respiratory Rate 18 2014-02-10 Blood pressure systolic 132 mmHg 2014-02-10 Blood pressure diastolic 82 mmHg 2014-02-10 MEDICATIONS Unknown Medications RESULTS No Results PROCEDURES [...] to [facility] Trach placed 03/2017 due to A Fib resulting in anoxic brain injury and memory loss Medical History 03/02-03/03/18 heart surgery Surgical History Defibrillation placed 2017 Surgical History Trach/PEG Tube placed and removed [facility] a fter Intubation 2017 Surgical History heart surgery 2018 Surgical History heart surgery 03/02-03/03/18 Hospitalization History ICU for Afib 09/2013 Hospitalization History Admitted to Transferred to [facility] ICU/ Rehab 03/2017 Hospitalization History Coded, Defribrillated and ET tube placed for ventillation and transferred to [facility] 03/2017 Hospitalization History surgery 09/29/2017 Hospitalization History heart surgery 03/02-03/03/18
--- OUTSIDE RECORDS SUMMARY | 2019-10-28 09:58 | XMS REPORT ---
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 986613301 Problem Adjustment disorder with depressed mood F43.21 Active 21021793 Problem History of FL (myocardial infarction) I25.2 Active 817440071 Problem Chronic atrial fibrillation I48.2 Ac tive 252928619 Problem Non-ischemic cardiomyopathy I42.8 Ac tive 53282378 Problem History of cardiac arrest Z86.74 Acti ve 263560452 Problem Cardiac defibrillator in place Z95.810 Active 879789305 ALLERGIES No Information ENCOUNTERS Encounter Location Date Diagnosis [facility] [address] [id number] [address] [place] [address] [phone] Nov, [facility] [address] [id number] [address] [place] [address] [id number] Sep, Caries K02.9 [facility] [address] [id number] [address] [place] [address] [id number] Aug, Caries K02.9 [facility] [address] [id number] [address] [place] [address] [phone] July, Caries K02.9 [facility] [address] [id number] [address] [place] [address] [phone] July, Dental examination Z01.20 [facility] [address] [id number] [address] [place] [address] [phone] July, Caries K02.9 [facility] [place] [address] [id number] [address] [place] [phone] Jun, [facility] [address] [id number] [place] [address] [phone] Jun, Caries K02.9 [facility] [place] [address] [facility] [id number] [address] [place] [phone] Jun, Chronic atrial fibrillation I48.2 ; 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 ; Cardiomyopathy I42.9 and Cardiac defibrillator in place Z95.810 [facility] [address] [id number] [place] [address] [phone] May, Caries K02.9 [facility] [place] [address] [id number] [address] [place] [phone] Apr, History of FL (myocardial in farction) I25.2 and SOB (shortness of breath) R06.02 [facility] [place] [address] [id number] [address] [place] [phone] Apr, [facility] [place] [address] [id number] [address] [place] [phone] Apr, [facility] [place] [address] [id number] [address] [place] [phone] Apr, Canker sore K12.0 [facility] [address] [facility] [id number] [address] [place] [address] [phone] Apr, Dental examination Z01.20 [facility] [address] [facility] [id number] [place] [address] [id number] Mar, Caries K02.9 [facility] [place] [address] [id number] [address] [place] [phone] Feb, Surgery follow-up Z09 [facility] [address] [facility] [id number] [address] [place] [address] [id number] Feb, Caries K02.9 [facility] [address] [id number] [address] [place] [address] [id number] Jan, Caries K02.9 [facility] [place] [address] [facility] [id number] [address] [place] [phone] Oct, Foreign body in subcutaneous tissue T14.8XXA [facility] [place] [address] [id number] [address] [place] [phone] Sep, Chronic atrial fibrillation I48.2 ; Non-ischemic cardiomyopathy I42.8 ; Anoxic brain injury G93.1 and Adjustment disorder with depressed mood F43.21 [facility] [place] [address] [id number] [address] [place] [phone] Aug, [facility] [place] [address] [id number] [address] [place] [phone] July, [facility] [place] [address] [facility] [id number] [address] [place] [phone] July, [facility] [place] [address] [facility] [id number] [address] [place] [phone] Jun, Adjustment disorder with dep ressed mood F43.21 [facility] [place] [address] [id number] [address] [place] [phone] Jun, [facility] [place] [address] [facility] [id number] [address] [place] [phone] Jun, [facility] [place] [address] [facility] [id number] [address] [place] [phone] May, [facility] [place] [address] [id number] [address] [place] [phone] May, [facility] [place] [address] [facility] [id number] [address] [place] [phone] May, [facility] [place] [address] [facility] [id number] [address] [place] [phone] May, [facility] [place] [address] [facility] [id number] [address] [place] [phone] 13 Mar, 2018 History of cardiac arrest Z8 6.74 ; Cardiac defibrillator in place Z95.810 ; Chronic atrial fibrillation I48.2 and Current moderate episode of major depressive disorder without prior episode F32.1 [facility] [place] [address] [id number] [address] [place] [phone] May, [facility] [place] [address] [facility] [id number] [address] [place] [phone] Mar, nursing home (current) use of a nticoagulants Z79.01 [facility] [place] [address] [id number] [address] [place] [phone] Mar, [facility] [place] [address] [facility] [id number] [address] [place] [phone] Mar, nursing home (current) use of a nticoagulants Z79.01 [facility] [place] [address] [facility] [id number] [address] [place] [phone] Feb, Afib I48.91 [facility] [place] [address] [facility] [id number] [address] [place] [phone] Feb, nursing home (current) use of a nticoagulants Z79.01 [facility] [address] [facility] [id number] [address] [place] [phone] Jan, Other viral agents as the ca use of diseases classified elsewhere B97.89 ; Acute upper respiratory infection, unspecified J06.9 and Body aches R52 [place] [address] [facility] [id number] [address] [place] [phone] Jan, Afib I48.91 [place] [address] [facility] [id number] [address] [place] [phone] Jan, Afib I48.91 and nursing home (c urrent) use of anticoagulants Z79.01 [facility] [place] [address] [id number] [address] [place] [phone] Dec, Afib I48.91 [facility] [place] [address] [facility] [id number] [address] [place] [phone] Dec, Chronic atrial fibrillation I48.2 [place] [address] [id number] [address] [place] [phone] Nov, Hypertension I10 [place] [address] [facility] [id number] [address] [place] [phone] Oct, Chronic atrial fibrillation I48.2 [place] [address] [facility] [id number] [address] [place] [phone] Oct, nursing home (current) use of a nticoagulants Z79.01 [place] [address] [id number] [address] [place] [phone] Oct, Chronic atrial fibrillation I48.2 [place] [address] [facility] [id number] [address] [place] [phone] Oct, Chronic atrial fibrillation I48.2 [place] [address] [facility] [id number] [address] [place] [phone] Sep, nursing home (current) use of a nticoagulants Z79.01 ; Hypertension I10 ; Cardiomyopathy I42.9 and Afib I48.91 [place] [address] [facility] [id number] [address] [place] [phone] Sep, nursing home (current) use of a nticoagulants Z79.01 ; Hypertension I10 ; Cardiomyopathy I42.9 and Afib I48.91 [place] [address] [id number] [address] [place] [phone] Aug, nursing home (current) use of a nticoagulants Z79.01 [place] [address] [id number] [address] [place] [phone] Aug, nursing home (current) use of a nticoagulants Z79.01 [place] [address] [facility] [id number] [address] [place] [phone] Aug, nursing home (current) use of a nticoagulants Z79.01 [place] [address] [id number] [address] [place] [phone] July, nursing home (current) use of a nticoagulants Z79.01 [facility] [place] [address] [id number] [address] [place] [phone] Jun, nursing home (current) use of a nticoagulants Z79.01 [facility] [place] [address] [id number] [address] [place] [phone] Jun, 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.01 [place] [address] [id number] [address] [place] [phone] May, Chronic atrial fibrillation I48.2 [place] [address] [facility] [id number] [address] [place] [phone] May, [place] [address] [id number] [address] [place] [phone] May, 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.01 [place] [address] [id number] [address] [place] [phone] 10 May, 2016 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.01 [place] [address] [id number] [address] [place] [phone] May, Afib I48.91 ; Non-ischemic c ardiomyopathy I42.8 ; Hypotension, unspecified hypotension type I95.9 and Heart palpitations R00.2 [place] [address] [id number] [address] [place] [phone] 16 Apr, 2016 nursing home (current) use of a nticoagulants Z79.01 [place] [address] [facility] [id number] [address] [place] [phone] 13 Apr, 2016 nursing home (current) use of a nticoagulants Z79.01 [place] [address] [facility] [id number] [address] [place] [phone] Mar, 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.01 [facility] [place] [address] [id number] [address] [place] [phone] Feb, 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.01 [facility] [place] [address] [id number] [address] [place] [phone] Feb, nursing home (current) use of a nticoagulants Z79.01 [facility] [place] [address] [id number] [address] [place] [phone] Jan, nursing home (current) use of a nticoagulants Z79.01 [place] [address] [id number] [address] [place] [phone] Jan, nursing home (current) use of a nticoagulants Z79.01 [place] [address] [id number] [address] [place] [phone] Dec, nursing home (current) use of a nticoagulants Z79.01 [facility] [place] [address] [id number] [address] [place] [phone] Dec, 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.01 [facility] [place] [address] [id number] [address] [place] [phone] Oct, nursing home (current) use of a nticoagulants Z79.01 [facility] [place] [address] [id number] [address] [place] [phone] Oct, 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.01 [place] [address] [facility] [id number] [address] [place] [phone] Oct, Afib I48.91 ; Cardiomyopathy I42.9 ; Palpitations R00.2 and Non- rheumatic tricuspid valve insufficiency I36.1 [place] [address] [id number] [address] [place] [phone] Sep, Chronic atrial fibrillation I48.2 ; 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 ; Cardiomyopathy I42.9 and Hypertension I10 [facility] [address] [facility] [id number] [address] [place] [phone] Aug, Allergic rhinitis, unspecifi ed allergic rhinitis type J30.9 [facility] [place] [address] [id number] [address] [place] [phone] Aug, nursing home (current) use of a nticoagulants Z79.01 [facility] [place] [address] [id number] [address] [place] [phone] Jun, nursing home (current) use of a nticoagulants Z79.01 [facility] [place] [address] [facility] [id number] [address] [place] [phone] Jun, 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.01 [facility] [place] [address] [id number] [address] [place] [phone] Jun, 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.01 [facility] [place] [address] [id number] [address] [place] [phone] Jun, [facility] [place] [address] [id number] [address] [place] [phone] May, Encounter for long-term (cur rent) use of anticoagulants V58.61 [facility] [place] [address] [id number] [address] [place] [phone] May, Encounter for long-term (cur rent) use of anticoagulants V58.61 [place] [address] [id number] [address] [place] [phone] May, Encounter for long-term (cur rent) use of anticoagulants V58.61 [facility] [place] [address] [facility] [id number] [address] [place] [phone] Apr, Encounter for long-term (cur rent) use of anticoagulants V58.61 [place] [address] [facility] [id number] [address] [place] [phone] Apr, nursing home (current) use of a nticoagulants Z79.01 [place] [address] [facility] [id number] [address] [place] [phone] Apr, Afib I48.91 ; Hypertension I 10 ; Cardiomyopathy I42.9 and Palpitations R00.2 [place] [address] [facility] [id number] [address] [place] [phone] Mar, nursing home (current) use of a nticoagulants Z79.01 [place] [address] [facility] [id number] [address] [place] [phone] Mar, Encounter for long-term (cur rent) use of anticoagulants V58.61 [place] [address] [place] [id number] [address] [place] [phone] Mar, Encounter for long-term (cur rent) use of anticoagulants V58.61 [place] [address] [place] [id number] [address] [place] [phone] Mar, 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.01 and Encounter for therapeutic drug level monitoring Z51.81 [place] [address] [facility] [id number] [address] [place] [phone] Feb, nursing home (current) use of a nticoagulants Z79.01 and Encounter for therapeutic drug level monitoring Z51.81 [place] [address] [facility] [id number] [address] [place] [phone] Feb, Encounter for long-term (cur rent) use of anticoagulants V58.61 [place] [address] [facility] [id number] [address] [place] [phone] Feb, [place] [address] [facility] [id number] [address] [place] [phone] Feb, Encounter for long-term (cur rent) use of anticoagulants V58.61 [place] [address] [id number] [address] [place] [phone] Feb, Encounter for therapeutic dr ug level monitoring Z51.81 [place] [address] [id number] [address] [place] [phone] Jan, [place] [address] [facility] [id number] [address] [place] [phone] Dec, Encounter for long-term (cur rent) use of anticoagulants V58.61 and Atrial fibrillation 427.31 [place] [address] [id number] [address] [place] [phone] Dec, Chest wall muscle strain S29 .011A [place] [address] [id number] [address] [place] [phone] Nov, Encounter for long-term (cur rent) use of anticoagulants V58.61 and Atrial fibrillation 427.31 [place] [address] [id number] [address] [place] [phone] Nov, Atrial fibrillation 427.31 [place] [address] [id number] [address] [place] [phone] Nov, [place] [address] [id number] [address] [place] [phone] Nov, Atrial fibrillation 427.31 [place] [address] [id number] [address] [place] [phone] Nov, Atrial fibrillation 427.31 [place] [address] [id number] [address] [place] [phone] Oct, Encounter for long-term (cur rent) use of anticoagulants V58.61 [place] [address] [id number] [address] [place] [phone] Sep, Encounter for long-term (cur rent) use of anticoagulants V58.61 [place] [address] [id number] [address] [place] [phone] Aug, Encounter for long-term (cur rent) use of anticoagulants V58.61 [facility] [place] [address] [id number] [address] [place] [phone] July, [facility] [place] [address] [id number] [address] [place] [phone] July, [facility] [address] [id number] [address] [place] [phone] July, [facility] [address] [id number] [address] [place] [phone] Jun, [facility] [address] [id number] [address] [place] [phone] Jun, [facility] [place] [address] [id number] [address] [place] [phone] May, [facility] [place] [address] [id number] [address] [place] [phone] May, [facility] [place] [address] [id number] [address] [place] [phone] May, [facility] [place] [address] [id number] [address] [place] [phone] Apr, [facility] [place] [address] [id number] [address] [place] [phone] Apr, [facility] [place] [address] [id number] [address] [place] [phone] Apr, [facility], [place] [address] [id number] [address] [place] [id number] Apr, [facility], [place] [address] [id number] [address] [place] [id number] Apr, [facility], [place] [address] [id number] [address] [place] [id number] Apr, [facility], [place] [address] [id number] [address] [place] [id number] Apr, [facility] [address] [id number] [address] [place] [address], [place] [address] Mar, [facility] [address] [id number] [address] [place] [address], [place] [address] Mar, [facility] [address] [id number] [address] [place] [address], [place] [address] Mar, [facility] [address] [id number] [address] [place] [address], [place] [address] Mar, [facility] [address] [id number] [address] [place] [address], [place] [address] Mar, [facility] [address] [id number] [address] [place] [address], [place] [address] Mar, [facility] [address] [id number] [address] [place] [address], [place] [address] Mar, [facility] [address] [id number] [address] [place] [address], [place] [address] Mar, [facility] [address] [id number] [address] [place] [address], [place] [address] Feb, [facility] [address] [id number] [address] [place] [address], [place] [address] Feb, [facility] [address] [id number] [address] [place] [address], [place] [address] Feb, [facility] [address] [id number] [address] [place] [address], [place] [address] Feb, [facility] [address] [id number] [address] [place] [address], [place] [address] Feb, [facility] [address] [id number] [address] [place] [address], [place] [address] Feb, [facility] [address] [id number] [address] [place] [address], [place] [address] Jan, [facility] [address] [id number] [address] [place] [address], [place] [address] Jan, [facility] [address] [id number] [address] [place] [address], [place] [address] Jan, [facility] [address] [id number] [address] [place] [address], [place] [address] Jan, [facility] [address] [id number] [address] [place] [address], [place] [address] Jan, [facility] [address] [id number] [address] [place] [address], [place] [address] Jan, [facility] [address] [id number] [address] [place] [address], [place] [address] Dec, [facility] [address] [id number] [address] [place] [address], [place] [address] Dec, [facility] [address] [id number] [address] [place] [address], [place] [address] Dec, [facility] [address] [id number] [address] [place] [address], [place] [address] Dec, [facility] [address] [id number] [address] [place] [address], [place] [address] Nov, [facility] [address] [id number] [address] [place] [address], [place] [address] Nov, [facility] [address] [id number] [address] [place] [address], [place] [address] Oct, [facility] [address] [id number] [place] [address], [place] [address] Oct, [facility] [address] [id number] [address] [place] [address], [place] [address] Oct, [facility] [address] [id number] [address] [place] [address], [place] [address] Oct, [facility] [address] [id number] [address] [place] [address], [place] [address] Oct, [facility] [address] [id number] [facility] [address] Oct, [facility] [address] [id number] [address] [place] [address], [place] [address] Sep, [facility] [address] [id number] [facility] [place] [address] Sep, [facility] [address] [id number] [address] [place] [address], [place] [address] Sep, [facility] [address] [id number] [address] [place] [address], [place] [address] Sep, [facility] [address] [id number] [address] [place] [address], [place] [address] Sep, [facility] [address] [id number] [address] [place] [address], [place] [address] Sep, [facility] [address] [id number] [address] [place] [address], [place] [address] Sep, [facility] [address] [id number] [address] [place] [address], [place] [address] Sep, [facility] [address] [id number] [address] [place] [address], [place] [address] Sep, [facility] [address] [id number] [address] [place] [address], [place] [address] Sep, [facility] [address] [id number] [address] [place] [address], [place] [address] Sep, [facility] [address] [id number] [address] [place] [address], [place] [address] Sep, [facility] [address] [id number] [address] [place] [address], [place] [address] Sep, [facility] [address] [id number] [address] [place] [address], [place] [address] Sep, [facility] [address] [id number] [address] [place] [address], [place] [address] Feb, [facility] [place] [address] [facility] [id number] [address] [place] [id number] Feb, [facility] [place] [address] [facility] [id number] [address] [place] [phone] July, [facility] [place] [address] [facility] [id number] [address] [place] [id number] Apr, [facility] [place] [address] [facility] [id number] [address] [place] [phone] Apr, [facility] [place] [address] [facility] [id number] [address] [place] [phone] Apr, [facility] [place] [address] [facility] [id number] [address] [place] [id number] Apr, IMMUNIZATIONS No Known Immunizations SOCIAL HISTORY Never Assessed REASON FOR VISIT PLAN OF CARE VITAL SIGNS MEDICATIONS Unknown Medications RESULTS No Results PROCEDURES Procedure Date Ordered Result Body Site PROTHROMBIN TIME Mar 01, 2014 INSTRUCTIONS MEDICATIONS ADMINISTERED No Known Medications MEDICAL (GENERAL) HISTORY Type Description Date Medical History Atrial fibrillation Medical History hx of c. diff Medical History Stress test performed; EF 25% Last test 2015 was at 60% Medical History Palpitations Medical History Cardiac Arrest with CPR and Intubation with ET tube and transferred to [facility] Trach placed 03/2017 due to A Fib resulting in anoxic brain injury and memory loss Medical History 03/02-03/03/18 heart surgery Surgical History Defibrillation placed 2017 Surgical History Trach/PEG Tube placed and removed [facility] a fter Intubation 2017 Surgical History heart surgery 2018 Surgical History heart surgery 03/02-03/03/18 Hospitalization History ICU for Afib 09/2013 Hospitalization History Admitted to Transferred to [facility] ICU/ Rehab 03/2017 Hospitalization History Coded, Defribrillated and ET tube placed for ventillation and transferred to [facility] 03/2017 Hospitalization History surgery 09/29/2017 Hospitalization History heart surgery 03/02-03/03/18
--- OUTSIDE RECORDS SUMMARY | 2019-10-28 09:58 | XMS REPORT ---
Author Author Je Farrell Doctor Organization [facility] Address Unknown Phone Unavailable Care Team Providers Care Key Worker Name Role Phone Migration, Doctor Unavailable Unavailable PROBLEMS Type Condition ICD9-CM Code XUT28-XE Code Onset Dates Condition S tatus SNOMED Code Problem Anoxic brain injury G93.1 Active 840105682 Problem Cardiomyopathy I42.9 Active 11167 001 Problem alf (current) use of anticoagulants Z79.01 Active 932332844 Problem Adjustment disorder with depressed mood F43.21 Active 03303313 Problem History of GA (myocardial infarction) I25.2 Active 297226650 Problem Chronic atrial fibrillation I48.2 Ac tive 588747470 Problem Non-ischemic cardiomyopathy I42.8 Ac tive 55195821 Problem History of cardiac arrest Z86.74 Acti ve 768103675 Problem Cardiac defibrillator in place Z95.810 Active 408705203 ALLERGIES No Information ENCOUNTERS Encounter Location Date Diagnosis [facility] [address] [id number] [address] [place] [address] [id number] Nov, Caries K02.9 [facility] [address] [id number] [address] [place] [address] [phone] Sep, Caries K02.9 [facility] [address] [id number] [address] [place] [address] [id number] Aug, Caries K02.9 [facility] [address] [id number] [address] [place] [address] [id number] July, Caries K02.9 [facility] [address] [id number] [address] [place] [address] [id number] July, Dental examination Z01.20 [facility] [address] [id number] [address] [place] [address] [id number] July, Caries K02.9 [facility] [address] [id number] [address] [place] [phone] Jun, [facility] [address] [facility] [id number] [address] [place] [address] [id number] Jun, Caries K02.9 [facility] [address] [facility] [id number] [address] [place] [phone] Jun, 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 I48.2 ; 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 ; Cardiomyopathy I42.9 and Cardiac defibrillator in place Z95.810 [facility] [address] [id number] [place] [address] [id number] May, Caries K02.9 [facility] [address] [facility] [id number] [place] [phone] Apr, History of GA (myocardial in farction) I25.2 and SOB (shortness of breath) R06.02 [facility] [address] [id number] [address] [place] [phone] Apr, [facility] [address] [id number] [address] [place] [phone] Apr, [facility] [address] [facility] [id number] [place] [phone] Apr, Canopal sore K12.0 [facility] [id number] [place] [address] [id number] Apr, Dental examination Z01.20 [facility] [address] [id number] [place] [address] [id number] Mar, Caries K02.9 [facility] [address] [facility] [id number] [address] [place] [phone] Feb, Surgery follow-up Z09 [facility] [address] [id number] [address] [place] [address] [id number] Feb, Caries K02.9 [facility] [address] [facility] [id number] [address] [place] [address] [id number] Jan, Caries K02.9 [facility] [address] [id number] [address] [place] [phone] Oct, Foreign body in subcutaneous tissue T14.8XXA [facility] [address] [id number] [address] [place] [phone] Sep, Chronic atrial fibrillation I48.2 ; Non-ischemic cardiomyopathy I42.8 ; Anoxic brain injury G93.1 and Adjustment disorder with depressed mood F43.21 [facility] [address] [id number] [address] [place] [phone] Aug, [facility] [address] [id number] [address] [place] [phone] July, [facility] [address] [id number] [address] [place] [phone] July, [facility] [address] [id number] [address] [place] [phone] Jun, Adjustment disorder with dep ressed mood F43.21 [facility] [address] [id number] [address] [place] [phone] Jun, [facility] [address] [id number] [address] [place] [phone] Jun, [facility] [address] [id number] [address] [place] [phone] May, [facility] [address] [id number] [address] [place] [phone] May, [facility] [address] [id number] [address] [place] [phone] May, [facility] [address] [id number] [address] [place] [address] May, [facility] [address] [facility] [id number] [address] [place] [phone] May, History of cardiac arrest Z8 6.74 ; Cardiac defibrillator in place Z95.810 ; Chronic atrial fibrillation I48.2 and Current moderate episode of major depressive disorder without prior episode F32.1 [facility] [address] [id number] [address] [place] [address] May, [facility] [address] [facility] [id number] [address] [place] [address] Mar, alf (current) use of a nticoagulants Z79.01 [facility] [address] [facility] [id number] [address] [place] [phone] Mar, [facility] [address] [id number] [address] [place] [phone] Mar, alf (current) use of a nticoagulants Z79.01 [place] [address] [facility] [id number] [address] [place] [address] Feb, Afib I48.91 [place] [address] [facility] [id number] [address] [place] [phone] Feb, 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 [facility] [address] [facility] [id number] [address] [place] [address] Jan, Other viral agents as the ca use of diseases classified elsewhere B97.89 ; Acute upper respiratory infection, unspecified J06.9 and Body aches R52 [place] [address] [facility] [id number] [address] [place] [address] Jan, Afib I48.91 [place] [address] [facility] [id number] [address] [place] [phone] Jan, Afib I48.91 and 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 Z79.01 [place] [address] [facility] [id number] [address] [place] [address] Dec, Afib I48.91 [place] [address] [facility] [id number] [address] [place] [phone] Dec, Chronic atrial fibrillation I48.2 [place] [address] [id number] [address] [place] [phone] Nov, Hypertension I10 [place] [address] [id number] [address] [place] [address] Oct, Chronic atrial fibrillation I48.2 [place] [address] [facility] [id number] [address] [place] [address] Oct, 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 [place] [address] [id number] [address] [place] [address] Oct, Chronic atrial fibrillation I48.2 [place] [address] [id number] [address] [place] [address] Oct, Chronic atrial fibrillation I48.2 [place] [address] [facility] [id number] [address] [place] [address] Sep, 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 ; Hypertension I10 ; Cardiomyopathy I42.9 and Afib I48.91 [place] [address] [id number] [address] [place] [address] Sep, 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 ; Hypertension I10 ; Cardiomyopathy I42.9 and Afib I48.91 [place] [address] [id number] [address] [place] [address] Aug, 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 [place] [address] [id number] [address] [place] [address] Aug, alf (current) use of a nticoagulants Z79.01 [place] [address] [id number] [address] [place] [address] Aug, 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 [place] [address] [facility] [id number] [address] [place] [address] July, alf (current) use of a nticoagulants Z79.01 [facility] [address] [id number] [address] [place] [address] Jun, 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 [facility] [address] [id number] [address] [place] [address] Jun, 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 [facility] [address] [id number] [address] [place] [address] May, Chronic atrial fibrillation I48.2 [place] [address] [id number] [address] [place] [address] May, [place] [address] [id number] [address] [place] [address] May, alf (current) use of a nticoagulants Z79.01 [place] [address] [id number] [address] [place] [address] May, alf (current) use of a nticoagulants Z79.01 [facility] [address] [id number] [address] [place] [phone] May, Afib I48.91 ; Non-ischemic c ardiomyopathy I42.8 ; Hypotension, unspecified hypotension type I95.9 and Heart palpitations R00.2 [facility] [address] [id number] [address] [place] [phone] 16 Apr, 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 [facility] [address] [id number] [address] [place] [address] Apr, 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 [place] [address] [facility] [id number] [address] [place] [address] Mar, 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 [place] [address] [id number] [address] [place] [address] Feb, 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 [facility] [address] [facility] [id number] [address] [place] [address] Feb, alf (current) use of a nticoagulants Z79.01 [place] [address] [facility] [id number] [address] [place] [address] Jan, alf (current) use of a nticoagulants Z79.01 [place] [address] [facility] [id number] [address] [place] [address] Jan, alf (current) use of a nticoagulants Z79.01 [place] [address] [facility] [id number] [address] [place] [address] Dec, alf (current) use of a nticoagulants Z79.01 [place] [address] [facility] [id number] [address] [place] [address] Dec, alf (current) use of a nticoagulants Z79.01 [place] [address] [facility] [id number] [address] [place] [address] Oct, 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 [place] [address] [facility] [id number] [address] [place] [address] Oct, 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 [facility] [address] [facility] [id number] [address] [place] [address] Oct, Afib I48.91 ; Cardiomyopathy I42.9 ; Palpitations R00.2 and Non- rheumatic tricuspid valve insufficiency I36.1 [facility] [address] [facility] [id number] [address] [place] [address] Sep, Chronic 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 fibrillation I48.2 ; 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 ; Cardiomyopathy I42.9 and Hypertension I10 [facility] [address] [facility] [id number] [address] [place] [address] Aug, Allergic rhinitis, unspecifi ed allergic rhinitis type J30.9 [facility] [address] [facility] [id number] [address] [place] [address] Aug, alf (current) use of a nticoagulants Z79.01 [facility] [address] [facility] [id number] [address] [place] [address] Jun, alf (current) use of a nticoagulants Z79.01 [place] [address] [facility] [id number] [address] [place] [address] Jun, alf (current) use of a nticoagulants Z79.01 [facility] [address] [facility] [id number] [address] [place] [address] Jun, 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 [facility] [address] [facility] [id number] [address] [place] [address] Jun, [facility] [address] [facility] [id number] [address] [place] [address] May, Encounter for long-term (cur rent) use of anticoagulants V58.61 [facility] [address] [facility] [id number] [address] [place] [address] May, Encounter for long-term (cur rent) use of anticoagulants V58.61 [place] [address] [facility] [id number] [address] [place] [address] May, Encounter for long-term (cur rent) use of anticoagulants V58.61 [facility] [address] [facility] [id number] [address] [place] [address] Apr, Encounter for long-term (cur rent) use of anticoagulants V58.61 [place] [address] [facility] [id number] [address] [place] [address] Apr, 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 [place] [address] [facility] [id number] [address] [place] [address] Apr, Afib I48.91 ; Hypertension I 10 ; Cardiomyopathy I42.9 and Palpitations R00.2 [place] [address] [facility] [id number] [address] [place] [address] Mar, alf (current) use of a nticoagulants Z79.01 [place] [address] [facility] [id number] [address] [place] [address] Mar, Encounter for long-term (cur rent) use of anticoagulants V58.61 [place] [address] [facility] [id number] [address] [place] [address] Mar, Encounter for long-term (cur rent) use of anticoagulants V58.61 [place] [address] [facility] [id number] [address] [place] [address] Mar, alf (current) use of a nticoagulants Z79.01 and Encounter for therapeutic drug level monitoring Z51.81 [place] [address] [facility] [id number] [address] [place] [address] Feb, alf (current) use of a nticoagulants Z79.01 and Encounter for therapeutic drug level monitoring Z51.81 [place] [address] [facility] [id number] [address] [place] [address] Feb, Encounter for long-term (cur rent) use of anticoagulants V58.61 [place] [address] [facility] [id number] [address] [place] [address] Feb, [place] [address] [facility] [id number] [address] [place] [address] Feb, Encounter for long-term (cur rent) use of anticoagulants V58.61 [place] [address] [facility] [id number] [address] [place] [address] Feb, Encounter for therapeutic dr ug level monitoring Z51.81 [place] [address] [id number] [address] [place] [address] Jan, [place] [address] [id number] [address] [place] [address] Dec, Encounter for long-term (cur rent) use of anticoagulants V58.61 and Atrial fibrillation 427.31 [place] [address] [id number] [address] [place] [address] Dec, Chest wall muscle strain S29 .011A [place] [address] [id number] [address] [place] [address] Nov, Encounter for long-term (cur rent) use of anticoagulants V58.61 and Atrial fibrillation 427.31 [place] [address] [id number] [address] [place] [address] Nov, Atrial fibrillation 427.31 [place] [address] [id number] [address] [place] [address] Nov, [place] [address] [id number] [address] [place] [address] Nov, Atrial fibrillation 427.31 [place] [address] [id number] [address] [place] [address] Nov, Atrial fibrillation 427.31 [place] [address] [id number] [address] [place] [address] Oct, Encounter for long-term (cur rent) use of anticoagulants V58.61 [place] [address] [id number] [address] [place] [address] Sep, Encounter for long-term (cur rent) use of anticoagulants V58.61 [place] [address] [id number] [address] [place] [address] Aug, Encounter for long-term (cur rent) use of anticoagulants V58.61 [place] [address] [id number] [address] [place] [address], [place] [address] July, [facility] [address] [id number] [address] [place] [address], [place] [phone] July, [facility] [address] [id number] [address] [place] [address], [place] [id number] July, [facility] [address] [id number] [address] [place] [address], [place] [phone] Jun, [facility] [address] [id number] [address] [place] [address], [place] [address] Jun, [facility] [address] [id number] [address] [place] [address], [place] [phone] May, [facility] [address] [id number] [address] [place] [address], [place] [phone] May, [facility] [address] [id number] [address] [place] [address], [place] [address] May, [facility] [address] [id number] [address] [place] [address], [place] [address] Apr, [facility] [address] [id number] [address] [place] [address], [place] [address] Apr, [facility] [address] [id number] [address] [place] [address], [place] [phone] Apr, [facility] [address] [id number] [address] [place] [address], [place] [address] Apr, [facility] [address] [id number] [address] [place] [address], [place] [id number] Apr, [facility] [address] [id number] [address] [place] [address], [place] [phone] Apr, [facility] [address] [id number] [address] [place] [address], [place] [phone] Apr, [facility] [address] [id number] [address] [place] [address], [place] [phone] Mar, [facility] [address] [id number] [address] [place] [address], [place] [phone] Mar, [facility] [address] [id number] [address] [place] [address], [place] [id number] Mar, [facility] [address] [id number] [address] [place] [address], [place] [phone] Mar, [facility] [address] [id number] [address] [place] [address], [place] [id number] Mar, [facility] [address] [id number] [address] [place] [address], [place] [phone] Mar, [facility] [address] [id number] [address] [place] [address], [place] [address] Mar, [facility] [address] [id number] [address] [place] [address], [place] [address] Mar, [facility] [address] [id number] [address] [place] [address], [place] [phone] Feb, [facility] [address] [id number] [address] [place] [address], [place] [phone] Feb, [facility] [address] [id number] [address] [place] [address], [place] [address] Feb, [facility] [address] [id number] [address] [place] [address], [place] [address] Feb, [facility] [address] [id number] [address] [place] [address], [place] [phone] Feb, [facility] [address] [id number] [address] [place] [address], [place] [address] Feb, [facility] [address] [id number] [address] [place] [address], [place] [phone] Jan, [facility] [address] [id number] [address] [place] [address], [place] [address] Jan, [facility] [address] [id number] [address] [place] [address], [place] [phone] 07 Jan, 2014 [facility] [address] [id number] [address] [place] [address], [place] [address] Jan, [facility] [address] [id number] [address] [place] [address], [place] [id number] Jan, [facility] [address] [id number] [address] [place] [address], [place] [id number] Jan, [facility] [address] [id number] [address] [place] [address], [place] [id number] Dec, [facility] [address] [id number] [address] [place] [address], [place] [id number] Dec, [facility] [address] [id number] [address] [place] [address], [place] [id number] Dec, [facility] [address] [id number] [address] [place] [address], [place] [id number] Dec, [facility] [address] [id number] [address] [place] [address], [place] [id number] Nov, [facility] [address] [id number] [address] [place] [address], [place] [id number] Nov, [facility] [address] [id number] [address] [place] [address], [place] [id number] Oct, [facility] [address] [id number] [address] [place] [address], [place] [id number] Oct, [facility] [address] [id number] [address] [place] [address], [place] [id number] Oct, [facility] [address] [id number] [address] [place] [address], [place] [id number] Oct, [facility] [address] [id number] [address] [place] [address], [place] [id number] Oct, [facility] [address] [id number] [address] [place] [address], [place] [id number] Oct, [facility] [address] [id number] [facility] [place] [address] Sep, [facility] [address] [id number] [facility] [place] [id number] Sep, [facility] [address] [id number] [facility] [place] [address] Sep, [facility] [address] [id number] [address] [place] [address], [place] [address] Sep, [facility] [address] [id number] [address] [place] [address], [place] [address] Sep, [facility] [address] [id number] [address] [place] [address], [place] [id number] Sep, [facility] [address] [id number] [address] [place] [address], [place] [id number] Sep, [facility] [address] [id number] [address] [place] [address], [place] [id number] Sep, [facility] [address] [id number] [address] [place] [address], [place] [phone] Sep, [facility] [address] [id number] [address] [place] [address], [place] [phone] Sep, [facility] [address] [id number] [address] [place] [address], [place] [id number] Sep, [facility] [address] [id number] [address] [place] [address], [place] [id number] Sep, [facility] [address] [id number] [address] [place] [address], [place] [id number] Sep, [facility] [address] [id number] [address] [place] [address], [place] [phone] Sep, [facility] [address] [id number] [address] [place] [address], [place] [id number] Feb, [facility] [address] [id number] [address] [address] Feb, [facility] [address] [facility] [id number] [address] [place] [id number] July, [facility] [address] [facility] [id number] [address] [place] [id number] Apr, [facility] [address] [facility] [id number] [address] [place] [id number] Apr, [facility] [address] [facility] [id number] [address] [place] [id number] Apr, [facility] [address] [facility] [id number] [address] [place] [id number] Apr, IMMUNIZATIONS No Known Immunizations SOCIAL HISTORY Never Assessed REASON FOR VISIT PLAN OF CARE VITAL SIGNS MEDICATIONS Unknown Medications RESULTS No Results PROCEDURES Procedure Date Ordered Result Body Site PROTHROMBIN TIME Dec 19, 2013 INSTRUCTIONS MEDICATIONS ADMINISTERED No Known Medications MEDICAL (GENERAL) HISTORY Type Description Date Medical History Atrial fibrillation Medical History hx of c. diff Medical History Stress test performed; EF 25% Last test 2015 was at 60% Medical History Palpitations Medical History Cardiac Arrest with CPR and Intubation with ET tube and transferred to [facility] Trach placed 03/2017 due to A Fib resulting in anoxic brain injury and memory loss Medical History 03/02-03/03/18 heart surgery Surgical History Defibrillation placed 2017 Surgical History Trach/PEG Tube placed and removed [facility] a fter Intubation 2017 Surgical History heart surgery 2017 Surgical History heart surgery 03/02-03/03/18 Hospitalization History ICU for Afib 09/2013 Hospitalization History Admitted to Transferred to [facility] ICU/ Rehab 03/2017 Hospitalization History Coded, Defribrillated and ET tube placed for ventillation and transferred to [facility] 03/2017 Hospitalization History surgery 09/29/2017 Hospitalization History heart surgery 03/02-03/03/18
--- OUTSIDE RECORDS SUMMARY | 2019-10-28 09:58 | XMS REPORT ---
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 081567327 Problem Adjustment disorder with depressed mood F43.21 Active 75738637 Problem History of [place] (myocardial infarction) I25.2 Active 956241480 Problem Chronic atrial fibrillation I48.2 Ac tive 454296619 Problem Non-ischemic cardiomyopathy I42.8 Ac tive 77640454 Problem History of cardiac arrest Z86.74 Acti ve 795546180 Problem Cardiac defibrillator in place Z95.810 Active 376294259 ALLERGIES No Information ENCOUNTERS Encounter Location Date Diagnosis [facility] [address] [id number] [address] [place] [address] [id number] Nov, [facility] [address] [id number] [address] [place] [address] [phone] Sep, Caries K02.9 [facility] [address] [id number] [address] [place] [address] [phone] Aug, Caries K02.9 [facility] [address] [id number] [address] [place] [address] [phone] July, Caries K02.9 [facility] [address] [id number] [address] [place] [address] [id number] July, Dental examination Z01.20 [facility] [address] [id number] [address] [place] [address] [id number] July, Caries K02.9 [facility] [address] [id number] [address] [place] [phone] Jun, [facility] [address] [id number] [place] [address] [id number] Jun, Caries K02.9 [facility] [address] 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 ; Cardiomyopathy I42.9 and Cardiac defibrillator in place Z95.810 [facility] [address] [id number] [place] [address] [phone] May, Caries K02.9 [facility] [address] [id number] [address] [place] [phone] Apr, History of NH (myocardial in farction) I25.2 and SOB (shortness of breath) R06.02 [facility] [address] [id number] [address] [place] [phone] Apr, [facility] [address] [id number] [address] [place] [phone] Apr, [facility] [address] [id number] [address] [place] [phone] Apr, Canker sore K12.0 [facility] [address] [facility] [id number] [address] [place] [address] [phone] Apr, Dental examination Z01.20 [facility] [address] [facility] [id number] [place] [address] [id number] Mar, Caries K02.9 [facility] [address] [id number] [address] [place] [phone] Feb, Surgery follow-up Z09 [facility] [address] [facility] [id number] [address] [place] [address] [id number] Feb, Caries K02.9 [facility] [address] [id number] [address] [place] [address] [id number] Jan, Caries K02.9 [facility] [address] [facility] [id number] [address] [place] [phone] Oct, Foreign body in subcutaneous tissue T14.8XXA [facility] [address] [id number] [address] [place] [phone] Sep, Chronic atrial fibrillation I48.2 ; Non-ischemic cardiomyopathy I42.8 ; Anoxic brain injury G93.1 and Adjustment disorder with depressed mood F43.21 [facility] [address] [id number] [address] [place] [id number] Aug, [facility] [address] [id number] [address] [place] [phone] July, [facility] [address] [facility] [id number] [address] [place] [phone] July, [facility] [address] [facility] [id number] [address] [place] [phone] Jun, Adjustment disorder with dep ressed mood F43.21 [facility] [address] [id number] [address] [place] [id number] Jun, [facility] [address] [facility] [id number] [address] [place] [phone] Jun, [facility] [address] [facility] [id number] [address] [place] [phone] May, [facility] [address] [id number] [address] [place] [phone] May, [facility] [address] [facility] [id number] [address] [place] [phone] May, [facility] [address] [facility] [id number] [address] [place] [id number] May, [facility] [address] [facility] [id number] [address] [place] [phone] 13 Mar, 2018 History of cardiac arrest Z8 6.74 ; Cardiac defibrillator in place Z95.810 ; Chronic atrial fibrillation I48.2 and Current moderate episode of major depressive disorder without prior episode F32.1 [facility] [address] [id number] [address] [place] [phone] May, [facility] [address] [id number] [address] [place] [phone] Mar, half-way (current) use of a nticoagulants Z79.01 [facility] [address] [id number] [address] [place] [phone] Mar, [facility] [address] [facility] [id number] [address] [place] [phone] Mar, half-way (current) use of a nticoagulants Z79.01 [facility] [address] [id number] [address] [place] [id number] Feb, Afib I48.91 [facility] [address] [facility] [id number] [address] [place] [id number] Feb, half-way (current) use of a nticoagulants Z79.[address] [facility] [address] [facility] [id number] [address] [place] [phone] Jan, Other viral agents as the ca use of diseases classified elsewhere B97.89 ; Acute upper respiratory infection, unspecified J06.9 and Body aches R52 [place] [address] [facility] [id number] [address] [place] [phone] Jan, Afib I48.91 [place] [address] [facility] [id number] [address] [place] [phone] Jan, Afib I48.91 and half-way (c urrent) use of anticoagulants Z79.01 [facility] [address] [id number] [address] [place] [phone] Dec, Afib I48.91 [facility] [address] [facility] [id number] [address] [place] [id number] Dec, Chronic atrial fibrillation I48.2 [place] [address] [id number] [address] [place] [phone] Nov, Hypertension I10 [place] [address] [facility] [id number] [address] [place] [phone] Oct, Chronic atrial fibrillation I48.2 [place] [address] [facility] [id number] [address] [place] [phone] Oct, half-way (current) use of a nticoagulants Z79.01 [place] [address] [id number] [address] [place] [id number] Oct, Chronic atrial fibrillation I48.2 [place] [address] [facility] [id number] [address] [place] [phone] Oct, Chronic atrial fibrillation I48.2 [place] [address] [facility] [id number] [address] [place] [phone] Sep, half-way (current) use of a nticoagulants Z79.01 ; Hypertension I10 ; Cardiomyopathy I42.9 and Afib I48.91 [place] [address] [facility] [id number] [address] [place] [phone] Sep, half-way (current) use of a nticoagulants Z79.01 ; Hypertension I10 ; Cardiomyopathy I42.9 and Afib I48.91 [place] [address] [id number] [address] [place] [phone] Aug, half-way (current) use of a nticoagulants Z79.01 [place] [address] [id number] [address] [place] [phone] Aug, half-way (current) use of a nticoagulants Z79.01 [place] [address] [facility] [id number] [address] [place] [phone] Aug, half-way (current) use of a nticoagulants Z79.01 [place] [address] [id number] [address] [place] [id number] July, half-way (current) use of a nticoagulants Z79.01 [facility] [address] [id number] [address] [place] [id number] Jun, half-way (current) use of a nticoagulants Z79.01 [facility] [address] [id number] [address] [place] [id number] Jun, watermaster (current) use of a nticoagulants Z79.01 [place] [address] [id number] [address] [place] [address] May, Chronic atrial fibrillation I48.2 [place] [address] [facility] [id number] [address] [place] [address] May, [place] [address] [id number] [address] [place] [id number] May, watermaster (current) use of a nticoagulants Z79.01 [place] [address] [id number] [address] [place] [id number] 10 May, 2016 watermaster (current) use of a nticoagulants Z79.01 [place] [address] [id number] [address] [place] [address] May, Afib I48.91 ; Non-ischemic c ardiomyopathy I42.8 ; Hypotension, unspecified hypotension type I95.9 and Heart palpitations R00.2 [place] [address] [id number] [address] [place] [id number] 16 Apr, 2016 half-way (current) use of a nticoagulants Z79.01 [place] [address] [facility] [id number] [address] [place] [id number] 13 Apr, 2016 half-way (current) use of a nticoagulants Z79.01 [place] [address] [facility] [id number] [address] [place] [id number] Mar, watermaster (current) use of a nticoagulants Z79.01 [facility] [address] [id number] [address] [place] [id number] Feb, watermaster (current) use of a nticoagulants Z79.01 [facility] [address] [id number] [address] [place] [phone] Feb, half-way (current) use of a nticoagulants Z79.01 [facility] [address] [id number] [address] [place] [phone] Jan, half-way (current) use of a nticoagulants Z79.01 [place] [address] [id number] [address] [place] [id number] Jan, half-way (current) use of a nticoagulants Z79.01 [place] [address] [id number] [address] [place] [address] Dec, half-way (current) use of a nticoagulants Z79.01 [facility] [address] [id number] [address] [place] [phone] Dec, watermaster (current) use of a nticoagulants Z79.01 [facility] [address] [id number] [address] [place] [id number] Oct, half-way (current) use of a nticoagulants Z79.01 [facility] [address] [id number] [address] [place] [id number] Oct, watermaster (current) use of a nticoagulants Z79.01 [place] [address] 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 [id number] [address] [place] [phone] Aug, Allergic rhinitis, unspecifi ed allergic rhinitis type J30.9 [facility] [address] [id number] [address] [place] [id number] Aug, half-way (current) use of a nticoagulants Z79.01 [facility] [address] [id number] [address] [place] [phone] Jun, half-way (current) use of a nticoagulants Z79.01 [facility] [address] [facility] [id number] [address] [place] [address] Jun, watermaster (current) use of a nticoagulants Z79.01 [facility] [address] [id number] [address] [place] [address] Jun, watermaster (current) use of a nticoagulants Z79.01 [facility] [address] [id number] [address] [place] [address] Jun, [facility] [address] [id number] [address] [place] [id number] May, Encounter for long-term (cur rent) use of anticoagulants V58.61 [facility] [address] [id number] [address] [place] [address] May, Encounter for long-term (cur rent) use of anticoagulants V58.61 [place] [address] [id number] [address] [place] [address] May, Encounter for long-term (cur rent) use of anticoagulants V58.61 [facility] [address] [facility] [facility] [id number] [address] [place] [address] Apr, Encounter for long-term (cur rent) use of anticoagulants V58.61 [place] [address] [facility] [id number] [address] [place] [address] Apr, half-way (current) use of a nticoagulants Z79.01 [place] [address] [facility] [id number] [address] [place] [address] Apr, Afib I48.91 ; Hypertension I 10 ; Cardiomyopathy I42.9 and Palpitations R00.2 [place] [address] [facility] [id number] [address] [place] [address] Mar, half-way (current) use of a nticoagulants Z79.01 [place] [address] [facility] [id number] [address] [place] [address] Mar, Encounter for long-term (cur rent) use of anticoagulants V58.61 [place] [address] [place] [id number] [address] [place] [address] Mar, Encounter for long-term (cur rent) use of anticoagulants V58.61 [place] [address] [place] [id number] [address] [place] [address] Mar, watermaster (current) use of a nticoagulants Z79.01 and Encounter for therapeutic drug level monitoring Z51.81 [place] [address] [facility] [id number] [address] [place] [address] Feb, half-way (current) use of a nticoagulants Z79.01 and Encounter for therapeutic drug level monitoring Z51.81 [place] [address] [facility] [id number] [address] [place] [address] Feb, Encounter for long-term (cur rent) use of anticoagulants V58.61 [place] [address] [facility] [id number] [address] [place] [address] Feb, [place] [address] [facility] [id number] [address] [place] [address] Feb, Encounter for long-term (cur rent) use of anticoagulants V58.61 [place] [address] [id number] [address] [place] [id number] Feb, Encounter for therapeutic dr ug level monitoring Z51.81 [place] [address] [id number] [address] [place] [id number] Jan, [place] [address] [facility] [id number] [address] [place] [address] Dec, Encounter for long-term (cur rent) use of anticoagulants V58.61 and Atrial fibrillation 427.31 [place] [address] [id number] [address] [place] [address] Dec, Chest wall muscle strain S29 .011A [place] [address] [id number] [address] [place] [address] Nov, Encounter for long-term (cur rent) use of anticoagulants V58.61 and Atrial fibrillation 427.31 [place] [address] [id number] [address] [place] [address] Nov, Atrial fibrillation 427.31 [place] [address] [id number] [address] [place] [address] Nov, [place] [address] [id number] [address] [place] [address] Nov, Atrial fibrillation 427.31 [place] [address] [id number] [address] [place] [address] Nov, Atrial fibrillation 427.31 [place] [address] [id number] [address] [place] [address] Oct, Encounter for long-term (cur rent) use of anticoagulants V58.61 [place] [address] [id number] [address] [place] [address] Sep, Encounter for long-term (cur rent) use of anticoagulants V58.61 [place] [address] [id number] [address] [place] [address] Aug, Encounter for long-term (cur rent) use of anticoagulants V58.61 [facility] [address] [id number] [address] [place] [address] July, [facility] [address] [id number] [address] [place] [address] July, [facility] [address] [id number] [address] [place] [address] July, [facility] [address] [id number] [address] [place] [address] Jun, [facility] [address] [id number] [address] [place] [phone] Jun, [facility] [address] [id number] [address] [place] [address] May, [facility] [address] [id number] [address] [place] [phone] May, [facility] [address] [id number] [address] [place] [phone] May, [facility] [address] [id number] [address] [place] [address] Apr, [facility] [address] [id number] [address] [place] [address] Apr, [facility] [address] [id number] [address] [place] [id number] Apr, [facility] [address] [id number] [address] [place] [id number] Apr, [facility] [address] [id number] [address] [place] [address] Apr, [facility] [address] [id number] [address] [place] [address] Apr, [facility] [address] [id number] [address] [place] [address] Apr, [facility] [address] [id number] [address] [place] [address], [place] [address] Mar, [facility] [address] [id number] [address] [place] [address], [place] [address] Mar, [facility] [address] [id number] [address] [place] [address], [place] [address] Mar, [facility] [address] [id number] [address] [place] [address], [place] [address] Mar, [facility] [address] [id number] [address] [place] [address], [place] [address] Mar, [facility] [address] [id number] [address] [place] [address], [place] [address] Mar, [facility] [address] [id number] [address] [place] [address], [place] [address] Mar, [facility] [address] [id number] [address] [place] [address], [place] [address] Mar, [facility] [address] [id number] [address] [place] [address], [place] [address] Feb, [facility] [address] [id number] [address] [place] [address], [place] [address] Feb, [facility] [address] [id number] [address] [place] [address], [place] [address] Feb, [facility] [address] [id number] [address] [place] [address], [place] [address] Feb, [facility] [address] [id number] [address] [place] [address], [place] [address] Feb, [facility] [address] [id number] [address] [place] [address], [place] [address] Feb, [facility] [address] [id number] [address] [place] [address], [place] [address] Jan, [facility] [address] [id number] [address] [place] [address], [place] [address] Jan, [facility] [address] [id number] [address] [place] [address], [place] [address] Jan, [facility] [address] [id number] [address] [place] [address], [place] [address] Jan, [facility] [address] [id number] [address] [place] [address], [place] [address] Jan, [facility] [address] [id number] [address] [place] [address], [place] [address] Jan, [facility] [address] [id number] [address] [place] [address], [place] [address] Dec, [facility] [address] [id number] [address] [place] [address], [place] [address] Dec, [facility] [address] [id number] [address] [place] [address], [place] [address] Dec, [facility] [address] [id number] [address] [place] [address], [place] [address] Dec, [facility] [address] [id number] [address] [place] [address], [place] [address] Nov, [facility] [address] [id number] [address] [place] [address], [place] [address] Nov, [facility] [address] [id number] [address] [place] [address], [place] [address] Oct, [facility] [address] [id number] [address] [place] [address], [place] [address] Oct, [facility] [address] [id number] [address] [place] [address], [place] [address] Oct, [facility] [address] [id number] [address] [place] [address], [place] [address] Oct, [facility] [address] [id number] [address] [place] [address], [place] [address] Oct, [facility] [address] [address] [id number] [facility] [place] [address] Oct, [facility] [address] [id number] [address] [place] [address], [place] [address] Sep, [facility] [address] [id number] [facility] [place] [address] Sep, [facility] [address] [id number] [address] [place] [address], [place] [address] Sep, [facility] [address] [id number] [address] [place] [address], [place] [address] Sep, [facility] [address] [id number] [address] [place] [address], [place] [address] Sep, [facility] [address] [id number] [address] [place] [address], [place] [address] Sep, [facility] [address] [id number] [address] [place] [address], [place] [address] Sep, [facility] [address] [id number] [address] [place] [address], [place] [address] Sep, [facility] [address] [id number] [address] [place] [address], [place] [address] Sep, [facility] [address] [id number] [address] [place] [address], [place] [address] Sep, [facility] [address] [id number] [address] [place] [address], [place] [address] Sep, [facility] [address] [id number] [address] [place] [address], [place] [address] Sep, [facility] [address] [id number] [address] [place] [address], [place] [address] Sep, [facility] [address] [id number] [address] [place] [address], [place] [address] Sep, [facility] [address] [id number] [address] [place] [address], [place] [address] Feb, [facility] [address] [facility] [id number] [address] [place] [id number] Feb, [facility] [address] [facility] [id number] [address] [place] [id number] July, [facility] [address] [facility] [id number] [address] [place] [id number] Apr, [facility] [address] [facility] [id number] [address] [place] [id number] Apr, [facility] [address] [facility] [id number] [address] [place] [id number] Apr, [facility] [address] [facility] [id number] [address] [place] [id number] Apr, IMMUNIZATIONS No Known Immunizations SOCIAL HISTORY Never Assessed REASON FOR VISIT PLAN OF CARE VITAL SIGNS Height 64 in 2013-11-08 Weight 197.99 lbs 2013-11-08 Temperature 96.8 degrees Fahrenheit 2013-11-08 Heart Rate 66 bpm 2013-11-08 Respiratory Rate 16 2013-11-08 Blood pressure systolic 128 mmHg 2013-11-08 Blood pressure diastolic 86 mmHg 2013-11-08 MEDICATIONS Unknown Medications RESULTS No Results PROCEDURES [...]
--- OUTSIDE RECORDS SUMMARY | 2019-10-28 09:59 | XMS REPORT ---
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 972498570 Problem Adjustment disorder with depressed mood F43.21 Active 36835825 Problem History of DE (myocardial infarction) I25.2 Active 820326061 Problem Chronic atrial fibrillation I48.2 Ac tive 664031150 Problem Non-ischemic cardiomyopathy I42.8 Ac tive 74896305 Problem History of cardiac arrest Z86.74 Acti ve 591084435 Problem Cardiac defibrillator in place Z95.810 Active 579183336 ALLERGIES No Information ENCOUNTERS Encounter Location Date Diagnosis [facility] [address] [id number] [address] [place] [address] [id number] Nov, [facility] [address] [id number] [address] [place] [address] [phone] Sep, Caries K02.9 [facility] [address] [id number] [address] [place] [address] [id number] Aug, Caries K02.9 [facility] [address] [id number] [address] [place] [address] [phone] July, Caries K02.9 [facility] [address] [id number] [address] [place] [address] [id number] July, Dental examination Z01.20 [facility] [address] [id number] [address] [place] [address] [phone] July, Caries K02.9 [facility] [address] [id number] [address] [place] [phone] Jun, [facility] [address] [id number] [place] [address] [phone] Jun, Caries K02.9 [facility] [address] [facility] [id number] [address] [place] [phone] Jun, Chronic atrial fibrillation I48.2 ; 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 ; Cardiomyopathy I42.9 and Cardiac defibrillator in place Z95.810 [facility] [address] [id number] [place] [address] [id number] May, Caries K02.9 [facility] [address] [id number] [address] [place] [phone] Apr, History of DE (myocardial in farction) I25.2 and SOB (shortness of breath) R06.02 [facility] [address] [id number] [address] [place] [phone] Apr, [facility] [address] [id number] [address] [place] [phone] Apr, [facility] [address] [id number] [address] [place] [phone] Apr, Canker sore K12.0 [facility] [address] [id number] [address] [place] [address] [id number] Apr, Dental examination Z01.20 [facility] [address] [id number] [address] [place] [address] [id number] Mar, Caries K02.9 [facility] [address] [id number] [address] [place] [phone] Feb, Surgery follow-up Z09 [facility] [address] [id number] [address] [place] [address] [id number] Feb, Caries K02.9 [facility] [address] [facility] [id number] [address] [place] [address] [id number] Jan, Caries K02.9 [facility] [address] [facility] [id number] [address] [place] [phone] Oct, Foreign body in subcutaneous tissue T14.8XXA [facility] [address] [facility] [id number] [address] [place] [phone] Sep, Chronic atrial fibrillation I48.2 ; Non-ischemic cardiomyopathy I42.8 ; Anoxic brain injury G93.1 and Adjustment disorder with depressed mood F43.21 [facility] [address] [id number] [address] [place] [phone] Aug, [facility] [address] [id number] [address] [place] [phone] July, [facility] [address] [facility] [id number] [address] [place] [phone] July, [facility] [address] [facility] [id number] [address] [place] [phone] Jun, Adjustment disorder with dep ressed mood F43.21 [facility] [address] [facility] [id number] [address] [place] [phone] Jun, [facility] [address] [facility] [id number] [address] [place] [phone] Jun, [facility] [address] [facility] [id number] [address] [place] [phone] May, [facility] [address] [facility] [id number] [address] [place] [phone] May, [facility] [address] [facility] [id number] [address] [place] [phone] May, [facility] [address] [facility] [id number] [address] [place] [phone] May, [facility] [address] [facility] [id number] [address] [place] [phone] 13 Mar, 2018 History of cardiac arrest Z8 6.74 ; Cardiac defibrillator in place Z95.810 ; Chronic atrial fibrillation I48.2 and Current moderate episode of major depressive disorder without prior episode F32.1 [facility] [address] [id number] [address] [place] [phone] May, [facility] [address] [facility] [id number] [address] [place] [phone] Mar, [facility] (current) use of a nticoagulants Z79.01 [facility] [address] [id number] [address] [place] [phone] Mar, [facility] [address] [facility] [id number] [address] [place] [phone] Mar, 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 of a nticoagulants Z79.01 [facility] [address] [facility] [id number] [address] [place] [phone] Feb, Afib I48.91 [facility] [address] [facility] [id number] [address] [place] [phone] Feb, [facility] (current) use of a nticoagulants Z79.01 [facility] [address] [facility] [id number] [address] [place] [phone] Jan, Other viral agents as the ca use of diseases classified elsewhere B97.89 ; Acute upper respiratory infection, unspecified J06.9 and Body aches R52 [place] [address] [id number] [address] [place] [phone] Jan, Afib I48.91 [place] [address] [facility] [id number] [address] [place] [phone] Jan, Afib I48.91 and [facility] (c urrent) use of anticoagulants Z79.01 [facility] [address] [id number] [address] [place] [phone] Dec, Afib I48.91 [facility] [address] [facility] [id number] [address] [place] [phone] Dec, Chronic atrial fibrillation I48.2 [place] [address] [id number] [address] [place] [phone] Nov, Hypertension I10 [place] [address] [facility] [id number] [address] [place] [phone] Oct, Chronic atrial fibrillation I48.2 [place] [address] [facility] [id number] [address] [place] [phone] Oct, 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 of a nticoagulants Z79.01 [place] [address] [id number] [address] [place] [phone] Oct, Chronic atrial fibrillation I48.2 [place] [address] [facility] [id number] [address] [place] [phone] Oct, Chronic atrial fibrillation I48.2 [place] [address] [facility] [id number] [address] [place] [phone] Sep, [facility] (current) use of a nticoagulants Z79.01 ; Hypertension I10 ; Cardiomyopathy I42.9 and Afib I48.91 [place] [address] [facility] [id number] [address] [place] [phone] Sep, [facility] (current) use of a nticoagulants Z79.01 ; Hypertension I10 ; Cardiomyopathy I42.9 and Afib I48.91 [place] [address] [id number] [address] [place] [phone] Aug, [facility] (current) use of a nticoagulants Z79.01 [place] [address] [id number] [address] [place] [phone] Aug, 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 of a nticoagulants Z79.01 [place] [address] [facility] [id number] [address] [place] [phone] Aug, 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 of a nticoagulants Z79.01 [place] [address] [id number] [address] [place] [phone] July, [facility] (current) use of a nticoagulants Z79.01 [facility] [address] [id number] [address] [place] [phone] Jun, 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 of a nticoagulants Z79.01 [facility] [address] [id number] [address] [place] [phone] Jun, [facility] (current) use of a nticoagulants Z79.01 [place] [address] [id number] [address] [place] [phone] May, Chronic atrial fibrillation I48.2 [place] [address] [facility] [id number] [address] [place] [phone] May, [place] [address] [facility] [id number] [address] [place] [phone] May, 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 of a nticoagulants Z79.01 [place] [address] [id number] [address] [place] [phone] May, 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 of a nticoagulants Z79.01 [place] [address] [id number] [address] [place] [phone] May, Afib I48.91 ; Non-ischemic c ardiomyopathy I42.8 ; Hypotension, unspecified hypotension type I95.9 and Heart palpitations R00.2 [place] [address] [id number] [address] [place] [phone] 16 Apr, 2016 [facility] (current) use of a nticoagulants Z79.01 [place] [address] [facility] [id number] [address] [place] [phone] 13 Apr, 2016 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 of a nticoagulants Z79.01 [place] [address] [facility] [id number] [address] [place] [phone] Mar, 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 of a nticoagulants Z79.01 [facility] [address] [id number] [address] [place] [phone] Feb, [facility] (current) use of a nticoagulants Z79.01 [facility] [address] [id number] [address] [place] [phone] Feb, [facility] (current) use of a nticoagulants Z79.01 [facility] [address] [id number] [address] [place] [phone] Jan, 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 of a nticoagulants Z79.01 [place] [address] [id number] [address] [place] [phone] Jan, 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 of a nticoagulants Z79.01 [place] [address] [id number] [address] [place] [phone] Dec, [facility] (current) use of a nticoagulants Z79.01 [facility] [address] [id number] [address] [place] [phone] Dec, [facility] (current) use of a nticoagulants Z79.01 [facility] [address] [id number] [address] [place] [phone] Oct, 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 of a nticoagulants Z79.01 [facility] [address] [id number] [address] [place] [phone] Oct, [facility] (current) use of a nticoagulants Z79.01 [place] [address] [facility] [id number] [address] [place] [phone] Oct, Afib I48.91 ; Cardiomyopathy I42.9 ; Palpitations R00.2 and Non- rheumatic tricuspid valve insufficiency I36.1 [place] [address] [id number] [address] [place] [phone] Sep, Chronic atrial fibrillation I48.2 ; 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 ; Cardiomyopathy I42.9 and Hypertension I10 [facility] [address] [facility] [id number] [address] [place] [phone] Aug, Allergic rhinitis, unspecifi ed allergic rhinitis type J30.9 [facility] [address] [id number] [address] [place] [phone] Aug, [facility] (current) use of a nticoagulants Z79.01 [facility] [address] [id number] [address] [place] [phone] Jun, [facility] (current) use of a nticoagulants Z79.01 [facility] [address] [facility] [id number] [address] [place] [phone] Jun, [facility] (current) use of a nticoagulants Z79.01 [facility] [address] [id number] [address] [place] [phone] Jun, 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 of a nticoagulants Z79.01 [facility] [address] [id number] [address] [place] [phone] Jun, [facility] [address] [id number] [address] [place] [phone] May, Encounter for long-term (cur rent) use of anticoagulants V58.61 [facility] [address] [id number] [address] [place] [phone] May, Encounter for long-term (cur rent) use of anticoagulants V58.61 [facility] [address] [id number] [address] [place] [phone] May, Encounter for long-term (cur rent) use of anticoagulants V58.61 [facility] [address] [facility] [id number] [address] [place] [phone] Apr, Encounter for long-term (cur rent) use of anticoagulants V58.61 [place] [address] [facility] [id number] [address] [place] [phone] Apr, 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 of a nticoagulants Z79.01 [place] [address] [facility] [id number] [address] [place] [phone] Apr, Afib I48.91 ; Hypertension I 10 ; Cardiomyopathy I42.9 and Palpitations R00.2 [place] [address] [facility] [id number] [address] [place] [phone] Mar, [facility] (current) use of a nticoagulants Z79.01 [place] [address] [facility] [id number] [address] [place] [phone] Mar, Encounter for long-term (cur rent) use of anticoagulants V58.61 [place] [address] [facility] [id number] [address] [place] [phone] Mar, Encounter for long-term (cur rent) use of anticoagulants V58.61 [place] [address] [facility] [id number] [address] [place] [phone] Mar, 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 of a nticoagulants Z79.01 and Encounter for therapeutic drug level monitoring Z51.81 [place] [address] [facility] [id number] [address] [place] [phone] Feb, 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 of a nticoagulants Z79.01 and Encounter for therapeutic drug level monitoring Z51.81 [place] [address] [facility] [id number] [address] [place] [phone] Feb, Encounter for long-term (cur rent) use of anticoagulants V58.61 [place] [address] [facility] [id number] [address] [place] [phone] Feb, [place] [address] [facility] [id number] [address] [place] [phone] Feb, Encounter for long-term (cur rent) use of anticoagulants V58.61 [place] [address] [id number] [address] [place] [phone] Feb, Encounter for therapeutic dr ug level monitoring Z51.81 [place] [address] [id number] [address] [place] [phone] Jan, [place] [address] [facility] [id number] [address] [place] [phone] Dec, Encounter for long-term (cur rent) use of anticoagulants V58.61 and Atrial fibrillation 427.31 [place] [address] [id number] [address] [place] [phone] Dec, Chest wall muscle strain S29 .011A [place] [address] [id number] [address] [place] [phone] Nov, Encounter for long-term (cur rent) use of anticoagulants V58.61 and Atrial fibrillation 427.31 [place] [address] [id number] [address] [place] [phone] Nov, Atrial fibrillation 427.31 [place] [address] [id number] [address] [place] [phone] Nov, [place] [address] [id number] [address] [place] [phone] Nov, Atrial fibrillation 427.31 [place] [address] [id number] [address] [place] [phone] Nov, Atrial fibrillation 427.31 [place] [address] [id number] [address] [place] [phone] Oct, Encounter for long-term (cur rent) use of anticoagulants V58.61 [place] [address] [id number] [address] [place] [phone] Sep, Encounter for long-term (cur rent) use of anticoagulants V58.61 [place] [address] [id number] [address] [place] [phone] 03 [place], 2015 Encounter for long-term (cur rent) use of anticoagulants V58.61 [facility] [address] [id number] [address] [place] [phone] July, [facility] [address] [id number] [address] [place] [phone] July, [facility] [address] [id number] [address] [place] [phone] July, [facility] [address] [id number] [address] [place] [phone] Jun, [facility] [address] [id number] [address] [place] [phone] Jun, [facility] [address] [id number] [address] [place] [phone] May, [facility] [address] [id number] [address] [place] [phone] May, [facility] [address] [id number] [address] [place] [phone] May, [facility] [address] [id number] [address] [place] [phone] Apr, [facility] [address] [id number] [address] [place] [phone] Apr, [facility] [address] [id number] [address] [place] [phone] Apr, [facility] [address] [id number] [address] [place] [phone] Apr, [facility] [address] [id number] [address] [place] [phone] Apr, [facility] [address] [id number] [address] [place] [phone] Apr, [facility] [address] [id number] [address] [place] [phone] Apr, [facility] [address] [id number] [address] [place] [address], [place] [id number] Mar, [facility] [address] [id number] [address] [place] [address], [place] [id number] Mar, [facility] [address] [id number] [address] [place] [address], [place] [id number] Mar, [facility] [address] [id number] [address] [place] [address], [place] [id number] Mar, [facility] [address] [id number] [address] [place] [address], [place] [id number] Mar, [facility] [address] [id number] [address] [place] [address], [place] [id number] Mar, [facility] [address] [id number] [address] [place] [address], [place] [id number] Mar, [facility] [address] [id number] [address] [place] [address], [place] [id number] Mar, [facility] [address] [id number] [address] [place] [address], [place] [id number] Feb, [facility] [address] [id number] [address] [place] [address], [place] [id number] Feb, [facility] [address] [id number] [address] [place] [address], [place] [id number] Feb, [facility] [address] [id number] [address] [place] [address], [place] [id number] Feb, [facility] [address] [id number] [address] [place] [address], [place] [id number] Feb, [facility] [address] [id number] [address] [place] [address], [place] [id number] Feb, [facility] [address] [id number] [address] [place] [address], [place] [id number] Jan, [facility] [address] [id number] [address] [place] [address], [place] [id number] Jan, [facility] [address] [id number] [address] [place] [address], [place] [id number] Jan, [facility] [address] [id number] [address] [place] [address], [place] [id number] Jan, [facility] [address] [id number] [address] [place] [address], [place] [id number] Jan, [facility] [address] [id number] [address] [place] [address], [place] [id number] Jan, [facility] [address] [id number] [address] [place] [address], [place] [id number] Dec, [facility] [address] [id number] [address] [place] [address], [place] [id number] Dec, [facility] [address] [id number] [address] [place] [address], [place] [id number] Dec, [facility] [address] [id number] [address] [place] [address], [place] [id number] Dec, [facility] [address] [id number] [address] [place] [address], [place] [id number] Nov, [facility] [address] [id number] [address] [place] [address], [place] [id number] Nov, [facility] [address] [id number] [address] [place], [place] [address], [place] [id number] Oct, [facility] [address] [id number] [address] [place] [address], [place] [id number] Oct, [facility] [address] [id number] [address] [place] [address], [place] [id number] Oct, [facility] [address] [id number] [address] [place] [address], [place] [id number] Oct, [facility] [address] [id number] [address] [place] [address], [place] [id number] Oct, [facility] [address] [id number] [facility] [place] [id number] Oct, [facility] [address] [id number] [facility] [place] [id number] Sep, [facility] [address] [id number] [facility] [place] [address] Sep, [facility] [address] [id number] [address] [place] [address], [place] [id number] Sep, [facility] [address] [id number] [address] [place] [address], [place] [address] Sep, [facility] [address] [id number] [address] [place] [address], [place] [id number] Sep, [facility] [address] [id number] [address] [place] [address], [place] [id number] Sep, [facility] [address] [id number] [address] [place] [address], [place] [id number] Sep, [facility] [address] [id number] [address] [place] [address], [place] [id number] Sep, [facility] [address] [id number] [address] [place] [address], [place] [id number] Sep, [facility] [address] [id number] [address] [place] [address], [place] [id number] Sep, [facility] [address] [id number] [address] [place] [address], [place] [id number] Sep, [facility] [address] [id number] [address] [place] [address], [place] [id number] Sep, [facility] [address] [id number] [address] [place] [address], [place] [id number] Sep, [facility] [address] [id number] [address] [place] [address], [place] [id number] Sep, [facility] [address] [id number] [address] [place] [address], [place] [id number] Feb, [facility] [address] [facility] [id number] [address] [place] [id number] Feb, [facility] [address] [facility] [id number] [address] [place] [id number] July, [facility] [address] [facility] [id number] [address] [place] [id number] Apr, [facility] [address] [facility] [id number] [address] [place] [id number] Apr, [facility] [address] [facility] [id number] [address] [place] [id number] Apr, [facility] [address] [facility] [id number] [address] [place] [id number] Apr, IMMUNIZATIONS No Known Immunizations SOCIAL HISTORY Never Assessed REASON FOR VISIT PLAN OF CARE VITAL SIGNS MEDICATIONS Unknown Medications RESULTS No Results PROCEDURES Procedure Date Ordered Result Body Site PROTHROMBIN TIME Jan 24, 2014 INSTRUCTIONS MEDICATIONS ADMINISTERED No Known Medications MEDICAL (GENERAL) HISTORY Type Description Date Medical History Atrial fibrillation Medical History hx of c. diff Medical History Stress test performed; EF 25% Last test 2015 was at 60% Medical History Palpitations Medical History Cardiac Arrest with CPR and Intubation with ET tube and transferred to [facility] Trach placed 03/2017 due to A Fib resulting in anoxic brain injury and memory loss Medical History 03/02-03/03/18 heart surgery Surgical History Defibrillation placed 2017 Surgical History Trach/PEG Tube placed and removed [facility] a fter Intubation 2017 Surgical History heart surgery 2018 Surgical History heart surgery 03/02-03/03/18 Hospitalization History ICU for Afib 09/2013 Hospitalization History Admitted to Transferred to [facility] ICU/ Rehab 03/2017 Hospitalization History Coded, Defribrillated and ET tube placed for ventillation and transferred to [facility] 03/2017 Hospitalization History surgery 09/29/2017 Hospitalization History heart surgery 03/02-03/03/18
--- OUTSIDE RECORDS SUMMARY | 2019-10-28 09:59 | XMS REPORT ---
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.01 Active 402705206 Problem Adjustment disorder with depressed mood F43.21 Active 06916537 Problem History of [place] (myocardial infarction) I25.2 Active 504081238 Problem Chronic atrial fibrillation I48.2 Ac tive 953366649 Problem Non-ischemic cardiomyopathy I42.8 Ac tive 23385072 Problem History of cardiac arrest Z86.74 Acti ve 234206042 Problem Cardiac defibrillator in place Z95.810 Active 510693089 ALLERGIES No Information ENCOUNTERS Encounter Location Date Diagnosis [facility] [address] [id number] [address] [place] [address] [id number] Nov, [facility] [address] [id number] [address] [place] [address] [id number] Sep, Caries K02.9 [facility] [address] [id number] [address] [place] [address] [id number] Aug, Caries K02.9 [facility] [address] [id number] [address] [place] [address] [id number] July, Caries K02.9 [facility] [address] [id number] [address] [place] [address] [id number] July, Dental examination Z01.20 [facility] [address] [id number] [address] [place] [address] [id number] July, Caries K02.9 [facility] [address] [id number] [address] [place] [phone] Jun, [facility] [address] [id number] [place] [address] [phone] Jun, Caries K02.9 [facility] [address] [facility] [id number] [address] [place] [phone] Jun, Chronic atrial fibrillation I48.2 ; 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.01 ; Cardiomyopathy I42.9 and Cardiac defibrillator in place Z95.810 [facility] [address] [id number] [place] [address] [phone] May, Caries K02.9 [facility] [address] [id number] [address] [place] [phone] Apr, History of [place] (myocardial in farction) I25.2 and SOB (shortness of breath) R06.02 [facility] [address] [id number] [address] [place] [phone] Apr, [facility] [address] [id number] [address] [place] [phone] Apr, [facility] [address] [id number] [address] [place] [phone] Apr, Canker sore K12.0 [facility] [address] [facility] [id number] [address] [place] [address] [id number] Apr, Dental examination Z01.20 [facility] [address] [facility] [id number] [place] [address] [phone] Mar, Caries K02.9 [facility] [address] [id number] [address] [place] [phone] Feb, Surgery follow-up Z09 [facility] [address] [facility] [id number] [address] [place] [address] [id number] Feb, Caries K02.9 [facility] [address] [id number] [address] [place] [address] [phone] Jan, Caries K02.9 [facility] [address] [facility] [id number] [address] [place] [phone] Oct, Foreign body in subcutaneous tissue T14.8XXA [facility] [address] [id number] [address] [place] [phone] Sep, Chronic atrial fibrillation I48.2 ; Non-ischemic cardiomyopathy I42.8 ; Anoxic brain injury G93.1 and Adjustment disorder with depressed mood F43.21 [facility] [address] [id number] [address] [place] [phone] Aug, [facility] [address] [id number] [address] [place] [phone] July, [facility] [address] [facility] [id number] [address] [place] [phone] July, [facility] [address] [facility] [id number] [address] [place] [phone] Jun, Adjustment disorder with dep ressed mood F43.21 [facility] [address] [id number] [address] [place] [phone] Jun, [facility] [address] [facility] [id number] [address] [place] [phone] Jun, [facility] [address] [facility] [id number] [address] [place] [phone] May, [facility] [address] [id number] [address] [place] [phone] May, [facility] [address] [facility] [id number] [address] [place] [phone] May, [facility] [address] [facility] [id number] [address] [place] [phone] May, [facility] [address] [facility] [id number] [address] [place] [phone] 13 Mar, 2018 History of cardiac arrest Z8 6.74 ; Cardiac defibrillator in place Z95.810 ; Chronic atrial fibrillation I48.2 and Current moderate episode of major depressive disorder without prior episode F32.1 [facility] [address] [id number] [address] [place] [phone] May, [facility] [address] [facility] [id number] [address] [place] [phone] Mar, [facility]DC (current) use of a nticoagulants Z79.01 [facility] [address] [id number] [address] [place] [phone] Mar, [facility] [address] [facility] [id number] [address] [place] [phone] Mar, [facility] (current) use of a nticoagulants Z79.01 [facility] [address] [facility] [id number] [address] [place] [phone] Feb, Afib I48.91 [facility] [address] [facility] [id number] [address] [place] [phone] Feb, [facility]DC (current) use of a nticoagulants Z79.01 [facility] [address] [facility] [id number] [address] [place] [phone] Jan, Other viral agents as the ca use of diseases classified elsewhere B97.89 ; Acute upper respiratory infection, unspecified J06.9 and Body aches R52 [place] [address] [facility] [id number] [address] [place] [phone] Jan, Afib I48.91 [place] [address] [facility] [id number] [address] [place] [phone] Jan, Afib I48.91 and FDC (c urrent) use of anticoagulants Z79.01 [facility] [address] [id number] [address] [place] [phone] Dec, Afib I48.91 [facility] [address] [facility] [id number] [address] [place] [phone] Dec, Chronic atrial fibrillation I48.2 [place] [address] [id number] [address] [place] [phone] Nov, Hypertension I10 [place] [address] [facility] [id number] [address] [place] [phone] Oct, Chronic atrial fibrillation I48.2 [place] [address] [facility] [id number] [address] [place] [phone] Oct, [facility]DC (current) use of a nticoagulants Z79.01 [place] [address] [id number] [address] [place] [phone] Oct, Chronic atrial fibrillation I48.2 [place] [address] [facility] [id number] [address] [place] [phone] Oct, Chronic atrial fibrillation I48.2 [place] [address] [facility] [id number] [address] [place] [phone] Sep, [facility]DC (current) use of a nticoagulants Z79.01 ; Hypertension I10 ; Cardiomyopathy I42.9 and Afib I48.91 [place] [address] [facility] [id number] [address] [place] [phone] Sep, [facility] (current) use of a nticoagulants Z79.01 ; Hypertension I10 ; Cardiomyopathy I42.9 and Afib I48.91 [place] [address] [id number] [address] [place] [address] Aug, [facility]DC (current) use of a nticoagulants Z79.01 [place] [address] [id number] [address] [place] [phone] Aug, [facility]DC (current) use of a nticoagulants Z79.01 [place] [address] [facility] [id number] [address] [place] [phone] Aug, [facility]DC (current) use of a nticoagulants Z79.01 [place] [address] [id number] [address] [place] [phone] July, [facility]DC (current) use of a nticoagulants Z79.01 [facility] [address] [id number] [address] [place] [phone] Jun, [facility]DC (current) use of a nticoagulants Z79.01 [facility] [address] [id number] [address] [place] [phone] Jun, 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 a nticoagulants Z79.01 [place] [address] [id number] [address] [place] [phone] May, Chronic atrial fibrillation I48.2 [place] [address] [facility] [id number] [address] [place] [phone] May, [place] [address] [id number] [address] [place] [phone] May, 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 a nticoagulants Z79.01 [place] [address] [id number] [address] [place] [phone] 10 May, 2016 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 a nticoagulants Z79.01 [place] [address] [id number] [address] [place] [address] May, Afib I48.91 ; Non-ischemic c ardiomyopathy I42.8 ; Hypotension, unspecified hypotension type I95.9 and Heart palpitations R00.2 [place] [address] [id number] [address] [place] [phone] 16 Apr, 2016 [facility]DC (current) use of a nticoagulants Z79.01 [place] [address] [facility] [id number] [address] [place] [phone] 13 Apr, 2016 [facility]DC (current) use of a nticoagulants Z79.01 [place] [address] [facility] [id number] [address] [place] [phone] Mar, 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 a nticoagulants Z79.01 [facility] [address] [id number] [address] [place] [phone] Feb, 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 a nticoagulants Z79.01 [facility] [address] [id number] [address] [place] [phone] Feb, [facility]DC (current) use of a nticoagulants Z79.01 [facility] [address] [id number] [address] [place] [address] Jan, [facility]DC (current) use of a nticoagulants Z79.01 [place] [address] [id number] [address] [place] [phone] Jan, [facility]DC (current) use of a nticoagulants Z79.01 [place] [address] [id number] [address] [place] [phone] Dec, [facility]DC (current) use of a nticoagulants Z79.01 [facility] [address] [id number] [address] [place] [phone] Dec, 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 a nticoagulants Z79.01 [facility] [address] [id number] [address] [place] [phone] Oct, [facility]DC (current) use of a nticoagulants Z79.01 [facility] [address] [id number] [address] [place] [phone] Oct, 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 a nticoagulants Z79.01 [place] [address] [facility] [id number] [address] [place] [address] Oct, Afib I48.91 ; Cardiomyopathy I42.9 ; Palpitations R00.2 and Non- rheumatic tricuspid valve insufficiency I36.1 [place] [address] [id number] [address] [place] [phone] Sep, Chronic atrial fibrillation I48.2 ; 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.01 ; Cardiomyopathy I42.9 and Hypertension I10 [facility] [address] [facility] [id number] [address] [place] [phone] Aug, Allergic rhinitis, unspecifi ed allergic rhinitis type J30.9 [facility] [address] [id number] [address] [place] [phone] Aug, [facility]DC (current) use of a nticoagulants Z79.01 [facility] [address] [id number] [address] [place] [phone] Jun, [facility] (current) use of a nticoagulants Z79.01 [facility] [address] [facility] [id number] [address] [place] [phone] Jun, 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 a nticoagulants Z79.01 [facility] [address] [id number] [address] [place] [phone] Jun, 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 a nticoagulants Z79.01 [facility] [address] [id number] [address] [place] [phone] Jun, [facility] [address] [id number] [address] [place] [phone] May, Encounter for long-term (cur rent) use of anticoagulants V58.61 [facility] [address] [id number] [address] [place] [phone] May, Encounter for long-term (cur rent) use of anticoagulants V58.61 [place] [address] [id number] [address] [place] [phone] May, Encounter for long-term (cur rent) use of anticoagulants V58.61 [facility] [address] [facility] [id number] [address] [place] [address] Apr, Encounter for long-term (cur rent) use of anticoagulants V58.61 [place] [address] [facility] [id number] [address] [place] [address] Apr, [facility]DC (current) use of a nticoagulants Z79.01 [place] [address] [facility] [id number] [address] [place] [phone] Apr, Afib I48.91 ; Hypertension I 10 ; Cardiomyopathy I42.9 and Palpitations R00.2 [place] [address] [facility] [id number] [address] [place] [address] Mar, [facility]DC (current) use of a nticoagulants Z79.01 [place] [address] [facility] [id number] [address] [place] [phone] Mar, Encounter for long-term (cur rent) use of anticoagulants V58.61 [place] [address] [place] [id number] [address] [place] [address] Mar, Encounter for long-term (cur rent) use of anticoagulants V58.61 [place] [address] [place] [id number] [address] [place] [address] Mar, 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 a nticoagulants Z79.01 and Encounter for therapeutic drug level monitoring Z51.81 [place] [address] [facility] [id number] [address] [place] [address] Feb, [facility] (current) use of a nticoagulants Z79.01 and Encounter for therapeutic drug level monitoring Z51.81 [place] [address] [facility] [id number] [address] [place] [address] Feb, Encounter for long-term (cur rent) use of anticoagulants V58.61 [place] [address] [facility] [id number] [address] [place] [phone] Feb, [place] [address] [facility] [id number] [address] [place] [address] Feb, Encounter for long-term (cur rent) use of anticoagulants V58.61 [place] [address] [id number] [address] [place] [address] Feb, Encounter for therapeutic dr ug level monitoring Z51.81 [place] [address] [id number] [address] [place] [address] Jan, [place] [address] [facility] [id number] [address] [place] [phone] Dec, Encounter for long-term (cur rent) use of anticoagulants V58.61 and Atrial fibrillation 427.31 [place] [address] [id number] [address] [place] [address] Dec, Chest wall muscle strain S29 .011A [place] [address] [id number] [address] [place] [address] Nov, Encounter for long-term (cur rent) use of anticoagulants V58.61 and Atrial fibrillation 427.31 [place] [address] [id number] [address] [place] [phone] Nov, Atrial fibrillation 427.31 [place] [address] [id number] [address] [place] [phone] Nov, [place] [address] [id number] [address] [place] [address] Nov, Atrial fibrillation 427.31 [place] [address] [id number] [address] [place] [address] Nov, Atrial fibrillation 427.31 [place] [address] [id number] [address] [place] [address] Oct, Encounter for long-term (cur rent) use of anticoagulants V58.61 [place] [address] [id number] [address] [place] [address] Sep, Encounter for long-term (cur rent) use of anticoagulants V58.61 [place] [address] [id number] [address] [place] [address] Aug, Encounter for long-term (cur rent) use of anticoagulants V58.61 [facility] [address] [id number] [address] [place] [phone] July, [facility] [address] [id number] [address] [place] [phone] July, [facility] [address] [id number] [address] [place] [phone] July, [facility] [address] [id number] [address] [place] [phone] Jun, [facility] [address] [id number] [address] [place] [phone] Jun, [facility] [address] [id number] [address] [place] [phone] May, [facility] [address] [id number] [address] [place] [phone] May, [facility] [address] [id number] [address] [place] [phone] May, [facility] [address] [id number] [address] [place] [phone] Apr, [facility] [address] [id number] [address] [place] [phone] Apr, [facility] [address] [id number] [address] [place] [phone] Apr, [facility] [address] [id number] [address] [place] [address] Apr, [facility] [address] [id number] [address] [place] [phone] Apr, [facility] [address] [id number] [address] [place] [phone] Apr, [facility] [address] [id number] [address] [place] [phone] Apr, [facility] [address] [id number] [address] [place] [address], [place] [address] Mar, [facility] [address] [id number] [address] [place] [address], [place] [address] Mar, [facility] [address] [id number] [address] [place] [address], [place] [address] Mar, [facility] [address] [id number] [address] [place] [address], [place] [address] Mar, [facility] [address] [id number] [address] [place] [address], [place] [address] Mar, [facility] [address] [id number] [address] [place] [address], [place] [address] Mar, [facility] [address] [id number] [address] [place] [address], [place] [address] Mar, [facility] [address] [id number] [address] [place] [address], [place] [address] Mar, [facility] [address] [id number] [address] [place] [address], [place] [address] Feb, [facility] [address] [id number] [address] [place] [address], [place] [address] Feb, [facility] [address] [id number] [address] [place] [address], [place] [address] Feb, [facility] [address] [id number] [address] [place] [address], [place] [address] Feb, [facility] [address] [id number] [address] [place] [address], [place] [address] Feb, [facility] [address] [id number] [address] [place] [address], [place] [address] Feb, [facility] [address] [id number] [address] [place] [address], [place] [address] Jan, [facility] [address] [id number] [address] [place] [address], [place] [address] Jan, [facility] [address] [id number] [address] [place] [address], [place] [address] Jan, [facility] [address] [id number] [address] [place] [address], [place] [address] Jan, [facility] [address] [id number] [address] [place] [address], [place] [address] Jan, [facility] [address] [id number] [address] [place] [address], [place] [address] Jan, [facility] [address] [id number] [address] [place] [address], [place] [address] Dec, [facility] [address] [id number] [address] [place] [address], [place] [address] Dec, [facility] [address] [id number] [address] [place] [address], [place] [address] Dec, [facility] [address] [id number] [address] [place] [address], [place] [address] Dec, [facility] [address] [id number] [address] [place] [address], [place] [address] Nov, [facility] [address] [id number] [address] [place] [address], [place] [address] Nov, [facility] [address] [id number] [address] [place] [address], [place] [address] Oct, [facility] [address] [id number] [address] [place] [address], [place] [address] Oct, [facility] [address] [id number] [address] [place] [address], [place] [address] Oct, [facility] [address] [id number] [address] [place] [address], [place] [address] Oct, [facility] [address] [id number] [address] [place] [address], [place] [address] Oct, [facility] [address] [id number] [facility] [place] [address] Oct, [facility] [address] [id number] [address] [place] [address], [place] [address] Sep, [facility] [address] [id number] [facility] [place] [address] Sep, [facility] [address] [id number] [address] [place] [address], [place] [address] Sep, [facility] [facility] [address] [id number] [address] [place] [address], [place] [address] Sep, [facility] [address] [id number] [address] [place] [address], [place] [address] Sep, [facility] [address] [id number] [address] [place] [address], [place] [address] Sep, [facility] [address] [id number] [address] [place] [address], [place] [address] Sep, [facility] [address] [id number] [address] [place] [address], [place] [address] Sep, [facility] [address] [id number] [address] [place] [address], [place] [address] Sep, [facility] [address] [id number] [address] [place] [address], [place] [address] Sep, [facility] [address] [id number] [address] [place] [address], [place] [address] Sep, [facility] [address] [id number] [address] [place] [address], [place] [address] Sep, [facility] [address] [id number] [address] [place] [address], [place] [address] Sep, [facility] [address] [id number] [address] [place] [address], [place] [address] Sep, [facility] [address] [id number] [address] [place] [address], [place] [address] Feb, [facility] [address] [facility] [id number] [address] [place] [phone] Feb, [facility] [address] [facility] [id number] [address] [place] [phone] July, [facility] [address] [facility] [id number] [address] [place] [phone] Apr, [facility] [address] [facility] [id number] [address] [place] [phone] Apr, [facility] [address] [facility] [id number] [address] [place] [phone] Apr, [facility] [address] [facility] [id number] [address] [place] [phone] Apr, IMMUNIZATIONS No Known Immunizations SOCIAL HISTORY Never Assessed REASON FOR VISIT PLAN OF CARE VITAL SIGNS MEDICATIONS Unknown Medications RESULTS No Results PROCEDURES Procedure Date Ordered Result Body Site PROTHROMBIN TIME Feb 17, 2014 INSTRUCTIONS MEDICATIONS ADMINISTERED No Known Medications MEDICAL (GENERAL) HISTORY Type Description Date Medical History Atrial fibrillation Medical History hx of c. diff Medical History Stress test performed; EF 25% Last test 2015 was at 60% Medical History Palpitations Medical History Cardiac Arrest with CPR and Intubation with ET tube and transferred to [facility] Trach placed 03/2017 due to A Fib resulting in anoxic brain injury and memory loss Medical History 03/02-03/03/18 heart surgery Surgical History Defibrillation placed 2017 Surgical History Trach/PEG Tube placed and removed [facility] a fter Intubation 2017 Surgical History heart surgery 2018 Surgical History heart surgery 03/02-03/03/18 Hospitalization History ICU for Afib 09/2013 Hospitalization History Admitted to Transferred to [facility] ICU/ Rehab 03/2017 Hospitalization History Coded, Defribrillated and ET tube placed for ventillation and transferred to [facility] 03/2017 Hospitalization History surgery 09/29/2017 Hospitalization History heart surgery 03/02-03/03/18
--- OUTSIDE RECORDS SUMMARY | 2019-10-28 09:59 | XMS REPORT ---
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 [address] [id number] [address] [place] [address] [id number] Nov, [facility] [address] [id number] [address] [place] [address] [id number] Sep, Caries K02.9 [facility] [address] [id number] [address] [place] [address] [id number] Aug, Caries K02.9 [facility] [address] [id number] [address] [place] [address] [id number] July, Caries K02.9 [facility] [address] [id number] [address] [place] [address] [id number] July, Dental examination Z01.20 [facility] [address] [id number] [address] [place] [address] [id number] July, Caries K02.9 [facility] [address] [id number] [address] [place] [phone] Jun, 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 [address] [id number] [place] [address] [id number] May, Caries K02.9 [facility] [address] [id number] [address] [place] [phone] Apr, History of SD (myocardial in farction) I25.2 and SOB (shortness of breath) R06.02 [facility] [address] [id number] [address] [place] [phone] Apr, [facility] [address] [id number] [address] [place] [phone] Apr, [facility] [address] [id number] [address] [place] [phone] Apr, Canker sore K12.0 [facility] [address] [facility] [id number] [address] [place] [address] [id number] Apr, Dental examination Z01.20 [facility] [address] [facility] [id number] [place] [address] [id number] Mar, Caries K02.9 [facility] [address] [id number] [address] [place] [phone] Feb, Surgery follow-up Z09 [facility] [address] [facility] [id number] [address] [place] [address] [id number] Feb, Caries K02.9 [facility] [address] [id number] [address] [place] [address] [id number] Jan, Caries K02.9 [facility] [address] [facility] [id number] [address] [place] [phone] Oct, Foreign body in subcutaneous tissue T14.8XXA [facility] [address] [id number] [address] [place] [phone] Sep, Chronic atrial fibrillation I48.2 ; Non-ischemic cardiomyopathy I42.8 ; Anoxic brain injury G93.1 and Adjustment disorder with depressed mood F43.21 [facility] [address] [id number] [address] [place] [phone] Aug, [facility] [address] [id number] [address] [place] [phone] July, [facility] [address] [facility] [id number] [address] [place] [phone] July, [facility] [address] [facility] [id number] [address] [place] [phone] Jun, Adjustment disorder with dep ressed mood F43.21 [facility] [address] [id number] [address] [place] [phone] Jun, [facility] [address] [facility] [id number] [address] [place] [phone] Jun, [facility] [address] [facility] [id number] [address] [place] [phone] May, [facility] [address] [id number] [address] [place] [phone] May, [facility] [address] [facility] [id number] [address] [place] [phone] May, [facility] [address] [facility] [id number] [address] [place] [phone] May, [facility] [address] [facility] [id number] [address] [place] [phone] 13 Mar, 2018 History of cardiac arrest Z8 6.74 ; Cardiac defibrillator in place Z95.810 ; Chronic atrial fibrillation I48.2 and Current moderate episode of major depressive disorder without prior episode F32.1 [facility] [address] [id number] [address] [place] [phone] May, [facility] [address] [facility] [id number] [address] [place] [phone] Mar, [facility] (current) use of a nticoagulants Z79.01 [facility] [address] [id number] [address] [place] [phone] Mar, [facility] [address] [facility] [id number] [address] [place] [phone] Mar, [facility] (current) use of a nticoagulants Z79.01 [facility] [address] [facility] [id number] [address] [place] [phone] Feb, Afib I48.91 [facility] [address] [facility] [id number] [address] [place] [phone] Feb, [facility] (current) use of a nticoagulants Z79.01 [facility] [address] [facility] [id number] [address] [place] [phone] Jan, Other viral agents as the ca use of diseases classified elsewhere B97.89 ; Acute upper respiratory infection, unspecified J06.9 and Body aches R52 [place] [address] [facility] [id number] [address] [place] [phone] Jan, Afib I48.91 [place] [address] [facility] [id number] [address] [place] [phone] Jan, Afib I48.91 and [facility] (c urrent) use of anticoagulants Z79.01 [facility] [address] [id number] [address] [place] [phone] Dec, Afib I48.91 [facility] [address] [facility] [id number] [address] [place] [phone] Dec, Chronic atrial fibrillation I48.2 [place] [address] [id number] [address] [place] [phone] Nov, Hypertension I10 [place] [address] [facility] [id number] [address] [place] [phone] Oct, Chronic atrial fibrillation I48.2 [place] [address] [facility] [id number] [address] [place] [phone] Oct, [facility] (current) use of a nticoagulants Z79.01 [place] [address] [id number] [address] [place] [phone] Oct, Chronic atrial fibrillation I48.2 [place] [address] [facility] [id number] [address] [place] [phone] Oct, Chronic atrial fibrillation I48.2 [place] [address] [facility] [id number] [address] [place] [phone] Sep, [facility] (current) use of a nticoagulants Z79.01 ; Hypertension I10 ; Cardiomyopathy I42.9 and Afib I48.91 [place] [address] [facility] [id number] [address] [place] [phone] Sep, [facility] (current) use of a nticoagulants Z79.01 ; Hypertension I10 ; Cardiomyopathy I42.9 and Afib I48.91 [place] [address] [id number] [address] [place] [phone] Aug, [facility] (current) use of a nticoagulants Z79.01 [place] [address] [id number] [address] [place] [phone] Aug, [facility] (current) use of a nticoagulants Z79.01 [place] [address] [facility] [id number] [address] [place] [phone] Aug, [facility] (current) use of a nticoagulants Z79.01 [place] [address] [id number] [address] [place] [phone] July, [facility] (current) use of a nticoagulants Z79.01 [facility] [address] [id number] [address] [place] [phone] Jun, [facility] (current) use of a nticoagulants Z79.01 [facility] [address] [id number] [address] [place] [phone] Jun, 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 Z79.01 [place] [address] [id number] [address] [place] [phone] May, Chronic atrial fibrillation I48.2 [place] [address] [facility] [id number] [address] [place] [phone] May, [place] [address] [id number] [address] [place] [phone] May, 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 Z79.01 [place] [address] [id number] [address] [place] [phone] 10 May, 2016 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 Z79.01 [place] [address] [id number] [address] [place] [phone] May, Afib I48.91 ; Non-ischemic c ardiomyopathy I42.8 ; Hypotension, unspecified hypotension type I95.9 and Heart palpitations R00.2 [place] [address] [id number] [address] [place] [phone] 16 Apr, 2016 [facility] (current) use of a nticoagulants Z79.01 [place] [address] [facility] [id number] [address] [place] [phone] 13 Apr, 2016 [facility] (current) use of a nticoagulants Z79.01 [place] [address] [facility] [id number] [address] [place] [phone] Mar, 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 Z79.01 [facility] [address] [id number] [address] [place] [phone] Feb, 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 Z79.01 [facility] [address] [id number] [address] [place] [phone] Feb, [facility] (current) use of a nticoagulants Z79.01 [facility] [address] [id number] [address] [place] [phone] Jan, [facility] (current) use of a nticoagulants Z79.01 [place] [address] [id number] [address] [place] [phone] Jan, [facility] (current) use of a nticoagulants Z79.01 [place] [address] [id number] [address] [place] [phone] Dec, [facility] (current) use of a nticoagulants Z79.01 [facility] [address] [id number] [address] [place] [phone] Dec, 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 Z79.01 [facility] [address] [id number] [address] [place] [phone] Oct, [facility] (current) use of a nticoagulants Z79.01 [facility] [address] [id number] [address] [place] [phone] Oct, 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 Z79.01 [place] [address] [facility] [id number] [address] [place] [phone] Oct, Afib I48.91 ; Cardiomyopathy I42.9 ; Palpitations R00.2 and Non- rheumatic tricuspid valve insufficiency I36.1 [place] [address] [id number] [address] [place] [phone] Sep, Chronic atrial fibrillation I48.2 ; 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 ; Cardiomyopathy I42.9 and Hypertension I10 [facility] [address] [facility] [id number] [address] [place] [phone] Aug, Allergic rhinitis, unspecifi ed allergic rhinitis type J30.9 [facility] [address] [id number] [address] [place] [phone] Aug, [facility] (current) use of a nticoagulants Z79.01 [facility] [address] [id number] [address] [place] [phone] Jun, [facility] (current) use of a nticoagulants Z79.01 [facility] [address] [facility] [id number] [address] [place] [phone] Jun, 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 Z79.01 [facility] [address] [id number] [address] [place] [phone] Jun, 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 Z79.01 [facility] [address] [id number] [address] [place] [phone] Jun, [facility] [address] [id number] [address] [place] [phone] May, Encounter for long-term (cur rent) use of anticoagulants V58.61 [facility] [address] [id number] [address] [place] [phone] May, Encounter for long-term (cur rent) use of anticoagulants V58.61 [place] [address] [id number] [address] [place] [phone] May, Encounter for long-term (cur rent) use of anticoagulants V58.61 [facility] [address] [facility] [id number] [address] [place] [phone] Apr, Encounter for long-term (cur rent) use of anticoagulants V58.61 [place] [address] [facility] [id number] [address] [place] [phone] Apr, [facility] (current) use of a nticoagulants Z79.01 [place] [address] [facility] [id number] [address] [place] [phone] Apr, Afib I48.91 ; Hypertension I 10 ; Cardiomyopathy I42.9 and Palpitations R00.2 [place] [address] [facility] [id number] [address] [place] [phone] Mar, [facility] (current) use of a nticoagulants Z79.01 [place] [address] [facility] [id number] [address] [place] [phone] Mar, Encounter for long-term (cur rent) use of anticoagulants V58.61 [place] [address] [place] [id number] [address] [place] [phone] Mar, Encounter for long-term (cur rent) use of anticoagulants V58.61 [place] [address] [place] [id number] [address] [place] [phone] Mar, 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 Z79.01 and Encounter for therapeutic drug level monitoring Z51.81 [place] [address] [facility] [id number] [address] [place] [phone] Feb, [facility] (current) use of a nticoagulants Z79.01 and Encounter for therapeutic drug level monitoring Z51.81 [place] [address] [facility] [id number] [address] [place] [phone] Feb, Encounter for long-term (cur rent) use of anticoagulants V58.61 [place] [address] [facility] [id number] [address] [place] [phone] Feb, [place] [address] [facility] [id number] [address] [place] [phone] Feb, Encounter for long-term (cur rent) use of anticoagulants V58.61 [place] [address] [id number] [address] [place] [phone] Feb, Encounter for therapeutic dr ug level monitoring Z51.81 [place] [address] [id number] [address] [place] [phone] Jan, [place] [address] [facility] [id number] [address] [place] [phone] Dec, Encounter for long-term (cur rent) use of anticoagulants V58.61 and Atrial fibrillation 427.31 [place] [address] [id number] [address] [place] [phone] Dec, Chest wall muscle strain S29 .011A [place] [address] [id number] [address] [place] [phone] Nov, Encounter for long-term (cur rent) use of anticoagulants V58.61 and Atrial fibrillation 427.31 [place] [address] [id number] [address] [place] [phone] Nov, Atrial fibrillation 427.31 [place] [address] [id number] [address] [place] [phone] Nov, [place] [address] [id number] [address] [place] [phone] Nov, Atrial fibrillation 427.31 [place] [address] [id number] [address] [place] [phone] Nov, Atrial fibrillation 427.31 [place] [address] [id number] [address] [place] [phone] Oct, Encounter for long-term (cur rent) use of anticoagulants V58.61 [place] [address] [id number] [address] [place] [phone] Sep, Encounter for long-term (cur rent) use of anticoagulants V58.61 [place] [address] [id number] [address] [place] [phone] Aug, Encounter for long-term (cur rent) use of anticoagulants V58.61 [facility] [address] [id number] [address] [place] [phone] July, [facility] [address] [id number] [address] [place] [phone] July, [facility] [address] [id number] [address] [place] [phone] July, [facility] [address] [id number] [address] [place] [phone] Jun, [facility] [address] [id number] [address] [place] [phone] Jun, [facility] [address] [id number] [address] [place] [phone] May, [facility] [address] [id number] [address] [place] [phone] May, [facility] [address] [id number] [address] [place] [phone] May, [facility] [address] [id number] [address] [place] [phone] Apr, [facility] [address] [id number] [address] [place] [phone] Apr, [facility] [address] [id number] [address] [place] [phone] Apr, [facility] [address] [id number] [address] [place] [phone] Apr, [facility] [address] [id number] [address] [place] [phone] Apr, [facility] [address] [id number] [address] [place] [phone] Apr, [facility] [address] [id number] [address] [place] [phone] Apr, [facility] [address] [id number] [address] [place] [address], [place] [phone] Mar, [facility] [address] [id number] [address] [place] [address], [place] [phone] Mar, [facility] [address] [id number] [address] [place] [address], [place] [phone] Mar, [facility] [address] [id number] [address] [place] [address], [place] [phone] Mar, [facility] [address] [id number] [address] [place] [address], [place] [phone] Mar, [facility] [address] [id number] [address] [place] [address], [place] [phone] Mar, [facility] [address] [id number] [address] [place] [address], [place] [phone] Mar, [facility] [address] [id number] [address] [place] [address], [place] [phone] Mar, [facility] [address] [id number] [address] [place] [address], [place] [phone] Feb, [facility] [address] [id number] [address] [place] [address], [place] [phone] Feb, [facility] [address] [id number] [address] [place] [address], [place] [phone] Feb, [facility] [address] [id number] [address] [place] [address], [place] [address] Feb, [facility] [address] [id number] [address] [place] [address], [place] [id number] Feb, [facility] [address] [id number] [address] [place] [address], [place] [id number] Feb, [facility] [address] [id number] [address] [place] [address], [place] [id number] Jan, [facility] [address] [id number] [address] [place] [address], [place] [id number] Jan, [facility] [address] [id number] [address] [place] [address], [place] [address] Jan, [facility] [address] [id number] [address] [place] [address], [place] [address] Jan, [facility] [address] [id number] [address] [place] [address], [place] [id number] Jan, [facility] [address] [id number] [address] [place] [address], [place] [address] Jan, [facility] [address] [id number] [address] [place] [address], [place] [address] Dec, [facility] [address] [id number] [address] [place] [address], [place] [id number] Dec, [facility] [address] [id number] [address] [place] [address], [place] [address] Dec, [facility] [address] [id number] [address] [place] [address], [place] [id number] Dec, [facility] [address] [id number] [address] [place] [address], [place] [id number] Nov, [facility] [address] [id number] [address] [place] [address], [place] [address] Nov, [facility] [address] [id number] [address] [place] [address], [place] [id number] Oct, [facility] [address] [id number] [address] [place] [address], [place] [id number] Oct, [facility] [address] [id number] [address] [place] [address], [place] [id number] Oct, [facility] [address] [id number] [address] [place] [address], [place] [id number] Oct, [facility] [address] [id number] [address] [place] [address], [place] [address] Oct, [facility] [address] [id number] [facility] [place] [address] Oct, [facility] [address] [id number] [address] [place] [address], [place] [id number] Sep, [facility] [address] [id number] [facility] [place] [address] Sep, [facility] [address] [id number] [address] [place] [address], [place] [id number] Sep, [facility] [address] [id number] [address] [place] [address], [place] [address] Sep, [facility] [address] [id number] [address] [place] [address], [place] [id number] Sep, [facility] [address] [id number] [address] [place] [address], [place] [id number] Sep, [facility] [address] [id number] [address] [place] [address], [place] [id number] Sep, [facility] [address] [id number] [address] [place] [address], [place] [id number] Sep, [facility] [address] [id number] [address] [place] [address], [place] [id number] Sep, [facility] [address] [id number] [address] [place] [address], [place] [id number] Sep, [facility] [address] [id number] [address] [place] [address], [place] [id number] Sep, [facility] [address] [id number] [address] [place] [address], [place] [id number] Sep, [facility] [address] [id number] [address] [place] [address], [place] [id number] Sep, [facility] [address] [id number] [address] [place] [address], [place] [address] Sep, [facility] [address] [id number] [address] [place] [address], [place] [id number] Feb, [facility] [address] [facility] [id number] [address] [place] [id number] Feb, [facility] [address] [facility] [id number] [address] [place] [id number] July, [facility] [address] [facility] [id number] [address] [place] [id number] Apr, [facility] [address] [facility] [id number] [address] [place] [id number] Apr, [facility] [address] [facility] [id number] [address] [place] [id number] Apr, [facility] [address] [facility] [id number] [address] [place] [phone] Apr, IMMUNIZATIONS No Known Immunizations SOCIAL HISTORY [...] Intubation with ET tube and transferred to [facility] Trach placed 03/2017 due to A Fib resulting in anoxic brain injury and memory loss Medical History 03/02-03/03/18 heart surgery Surgical History Defibrillation placed 2017 Surgical History Trach/PEG Tube placed and removed [facility] a fter Intubation 2017 Surgical History heart surgery 2018 Surgical History heart surgery 03/02-03/03/18 Hospitalization History ICU for Afib 09/2013 Hospitalization History Admitted to Transferred to [facility] ICU/ Rehab 03/2017 Hospitalization History Coded, Defribrillated and ET tube placed for ventillation and transferred to [facility] 03/2017 Hospitalization History surgery 09/29/2017 Hospitalization History heart surgery 03/02-03/03/18
--- OUTSIDE RECORDS SUMMARY | 2019-10-28 09:59 | XMS REPORT ---
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 Z79.01 Active 618806165 Problem Adjustment disorder with depressed mood F43.21 Active 00058747 Problem History of ND (myocardial infarction) I25.2 Active 788145889 Problem Chronic atrial fibrillation I48.2 Ac tive 998694788 Problem Non-ischemic cardiomyopathy I42.8 Ac tive 39849513 Problem History of cardiac arrest Z86.74 Acti ve 765132066 Problem Cardiac defibrillator in place Z95.810 Active [id number] ALLERGIES No Information ENCOUNTERS Encounter Location Date Diagnosis [facility] [address] [id number] [address] [place] [address] [id number] Nov, [facility] [address] [id number] [address] [place] [address] [id number] Sep, Caries K02.9 [facility] [address] [id number] [address] [place] [address] [id number] Aug, Caries K02.9 [facility] [address] [id number] [address] [place] [address] [phone] July, Caries K02.9 [facility] [address] [id number] [address] [place] [address] [id number] July, Dental examination Z01.20 [facility] [address] [id number] [address] [place] [address] [id number] July, Caries K02.9 [facility] [address] [id number] [address] [place] [phone] Jun, [facility] [address] [id number] [place] [address] [id number] Jun, Caries K02.9 [facility] [address] [facility] [id number] [address] [place] [phone] Jun, Chronic atrial fibrillation I48.2 ; intermediate designer (current) use of anticoagulants Z79.01 ; Cardiomyopathy I42.9 and Cardiac defibrillator in place Z95.810 [facility] [address] [id number] [place] [address] [id number] May, Caries K02.9 [facility] [address] [id number] [address] [place] [phone] Apr, History of ND (myocardial in farction) I25.2 and SOB (shortness of breath) R06.02 [facility] [address] [id number] [address] [place] [phone] Apr, [facility] [address] [id number] [address] [place] [phone] Apr, [facility] [address] [id number] [address] [place] [phone] Apr, Canker sore K12.0 [facility] [address] [facility] [id number] [address] [place] [address] [id number] Apr, Dental examination Z01.20 [facility] [address] [facility] [id number] [place] [address] [id number] Mar, Caries K02.9 [facility] [address] [id number] [address] [place] [phone] Feb, Surgery follow-up Z09 [facility] [address] [facility] [id number] [address] [place] [address] [id number] Feb, Caries K02.9 [facility] [address] [id number] [address] [place] [address] [id number] Jan, Caries K02.9 [facility] [address] [facility] [id number] [address] [place] [phone] Oct, Foreign body in subcutaneous tissue T14.8XXA [facility] [address] [id number] [address] [place] [phone] Sep, Chronic atrial fibrillation I48.2 ; Non-ischemic cardiomyopathy I42.8 ; Anoxic brain injury G93.1 and Adjustment disorder with depressed mood F43.21 [facility] [address] [id number] [address] [place] [phone] Aug, [facility] [address] [id number] [address] [place] [phone] July, [facility] [address] [facility] [id number] [address] [place] [phone] July, [facility] [address] [facility] [id number] [address] [place] [phone] Jun, Adjustment disorder with dep ressed mood F43.21 [facility] [address] [id number] [address] [place] [phone] Jun, [facility] [address] [facility] [id number] [address] [place] [phone] Jun, [facility] [address] [facility] [id number] [address] [place] [phone] May, [facility] [address] [id number] [address] [place] [phone] May, [facility] [address] [facility] [id number] [address] [place] [phone] May, [facility] [address] [facility] [id number] [address] [place] [phone] May, [facility] [address] [facility] [id number] [address] [place] [phone] 13 Mar, 2018 History of cardiac arrest Z8 6.74 ; Cardiac defibrillator in place Z95.810 ; Chronic atrial fibrillation I48.2 and Current moderate episode of major depressive disorder without prior episode F32.1 [facility] [address] [id number] [address] [place] [phone] May, [facility] [address] [facility] [id number] [address] [place] [phone] Mar, intermediate (current) use of a nticoagulants Z79.01 [facility] [address] [id number] [address] [place] [phone] Mar, [facility] [address] [facility] [id number] [address] [place] [phone] Mar, intermediate (current) use of a nticoagulants Z79.01 [facility] [address] [facility] [id number] [address] [place] [phone] Feb, Afib I48.91 [facility] [address] [facility] [id number] [address] [place] [phone] Feb, intermediate (current) use of a nticoagulants Z79.01 [facility] [address] [facility] [id number] [address] [place] [phone] Jan, Other viral agents as the ca use of diseases classified elsewhere B97.89 ; Acute upper respiratory infection, unspecified J06.9 and Body aches R52 [place] [address] [facility] [id number] [address] [place] [phone] Jan, Afib I48.91 [place] [address] [facility] [id number] [address] [place] [phone] Jan, Afib I48.91 and intermediate (c urrent) use of anticoagulants Z79.01 [facility] [address] [id number] [address] [place] [phone] Dec, Afib I48.91 [facility] [address] [facility] [id number] [address] [place] [phone] Dec, Chronic atrial fibrillation I48.2 [place] [address] [id number] [address] [place] [phone] Nov, Hypertension I10 [place] [address] [facility] [id number] [address] [place] [phone] Oct, Chronic atrial fibrillation I48.2 [place] [address] [facility] [id number] [address] [place] [phone] Oct, intermediate (current) use of a nticoagulants Z79.01 [place] [address] [id number] [address] [place] [phone] Oct, Chronic atrial fibrillation I48.2 [place] [address] [facility] [id number] [address] [place] [phone] Oct, Chronic atrial fibrillation I48.2 [place] [address] [facility] [id number] [address] [place] [phone] Sep, intermediate (current) use of a nticoagulants Z79.01 ; Hypertension I10 ; Cardiomyopathy I42.9 and Afib I48.91 [place] [address] [facility] [id number] [address] [place] [phone] Sep, intermediate (current) use of a nticoagulants Z79.01 ; Hypertension I10 ; Cardiomyopathy I42.9 and Afib I48.91 [place] [address] [id number] [address] [place] [phone] Aug, intermediate (current) use of a nticoagulants Z79.01 [place] [address] [id number] [address] [place] [phone] Aug, intermediate (current) use of a nticoagulants Z79.01 [place] [address] [facility] [id number] [address] [place] [phone] Aug, intermediate (current) use of a nticoagulants Z79.01 [place] [address] [id number] [address] [place] [phone] July, intermediate (current) use of a nticoagulants Z79.01 [facility] [address] [id number] [address] [place] [phone] Jun, intermediate (current) use of a nticoagulants Z79.01 [facility] [address] [id number] [address] [place] [phone] Jun, intermediate designer (current) use of a nticoagulants Z79.01 [place] [address] [id number] [address] [place] [address] May, Chronic atrial fibrillation I48.2 [place] [address] [facility] [id number] [address] [place] [phone] May, [place] [address] [id number] [address] [place] [address] May, intermediate designer (current) use of a nticoagulants Z79.01 [place] [address] [id number] [address] [place] [phone] 10 May, 2016 intermediate designer (current) use of a nticoagulants Z79.01 [place] [address] [id number] [address] [place] [address] May, Afib I48.91 ; Non-ischemic c ardiomyopathy I42.8 ; Hypotension, unspecified hypotension type I95.9 and Heart palpitations R00.2 [place] [address] [id number] [address] [place] [phone] 16 Apr, 2016 intermediate (current) use of a nticoagulants Z79.01 [place] [address] [facility] [id number] [address] [place] [phone] 13 Apr, 2016 intermediate (current) use of a nticoagulants Z79.01 [place] [address] [facility] [id number] [address] [place] [address] Mar, intermediate designer (current) use of a nticoagulants Z79.01 [facility] [address] [id number] [address] [place] [address] Feb, intermediate designer (current) use of a nticoagulants Z79.01 [facility] [address] [id number] [address] [place] [phone] Feb, intermediate (current) use of a nticoagulants Z79.01 [facility] [address] [id number] [address] [place] [phone] Jan, intermediate (current) use of a nticoagulants Z79.01 [place] [address] [id number] [address] [place] [address] Jan, intermediate (current) use of a nticoagulants Z79.01 [place] [address] [id number] [address] [place] [address] Dec, intermediate (current) use of a nticoagulants Z79.01 [facility] [address] [id number] [address] [place] [address] Dec, intermediate designer (current) use of a nticoagulants Z79.01 [facility] [address] [id number] [address] [place] [address] Oct, intermediate (current) use of a nticoagulants Z79.01 [facility] [address] [id number] [address] [place] [phone] Oct, intermediate designer (current) use of a nticoagulants Z79.01 [place] [address] [facility] [id number] [address] [place] [address] Oct, Afib I48.91 ; Cardiomyopathy I42.9 ; Palpitations R00.2 and Non- rheumatic tricuspid valve insufficiency I36.1 [place] [address] [id number] [address] [place] [phone] Sep, Chronic atrial fibrillation I48.2 ; intermediate designer (current) use of anticoagulants Z79.01 ; Cardiomyopathy I42.9 and Hypertension I10 [facility] [address] [facility] [id number] [address] [place] [phone] Aug, Allergic rhinitis, unspecifi ed allergic rhinitis type J30.9 [facility] [address] [id number] [address] [place] [phone] Aug, intermediate (current) use of a nticoagulants Z79.01 [facility] [address] [id number] [address] [place] [phone] Jun, intermediate (current) use of a nticoagulants Z79.01 [facility] [address] [facility] [id number] [address] [place] [phone] Jun, intermediate designer (current) use of a nticoagulants Z79.01 [facility] [address] [id number] [address] [place] [phone] Jun, intermediate designer (current) use of a nticoagulants Z79.01 [facility] [address] [id number] [address] [place] [phone] Jun, [facility] [address] [id number] [address] [place] [phone] May, Encounter for long-term (cur rent) use of anticoagulants V58.61 [facility] [address] [id number] [address] [place] [address] May, Encounter for long-term (cur rent) use of anticoagulants V58.61 [place] [address] [id number] [address] [place] [address] May, Encounter for long-term (cur rent) use of anticoagulants V58.61 [facility] [address] [facility] [id number] [address] [place] [address] Apr, Encounter for long-term (cur rent) use of anticoagulants V58.61 [place] [address] [facility] [id number] [address] [place] [address] Apr, intermediate (current) use of a nticoagulants Z79.01 [place] [address] [facility] [id number] [address] [place] [address] Apr, Afib I48.91 ; Hypertension I 10 ; Cardiomyopathy I42.9 and Palpitations R00.2 [place] [address] [facility] [id number] [address] [place] [address] Mar, intermediate (current) use of a nticoagulants Z79.01 [place] [address] [facility] [id number] [address] [place] [phone] Mar, Encounter for long-term (cur rent) use of anticoagulants V58.61 [place] [address] [place] [id number] [address] [place] [address] Mar, Encounter for long-term (cur rent) use of anticoagulants V58.61 [place] [address] [place] [id number] [address] [place] [address] Mar, intermediate designer (current) use of a nticoagulants Z79.01 and Encounter for therapeutic drug level monitoring Z51.81 [place] [address] [facility] [id number] [address] [place] [address] Feb, intermediate (current) use of a nticoagulants Z79.01 and Encounter for therapeutic drug level monitoring Z51.81 [place] [address] [facility] [id number] [address] [place] [address] Feb, Encounter for long-term (cur rent) use of anticoagulants V58.61 [place] [address] [facility] [id number] [address] [place] [phone] Feb, [place] [address] [facility] [id number] [address] [place] [phone] Feb, Encounter for long-term (cur rent) use of anticoagulants V58.61 [place] [address] [id number] [address] [place] [address] Feb, Encounter for therapeutic dr ug level monitoring Z51.81 [place] [address] [id number] [address] [place] [address] Jan, [place] [address] [facility] [id number] [address] [place] [address] Dec, Encounter for long-term (cur rent) use of anticoagulants V58.61 and Atrial fibrillation 427.31 [place] [address] [id number] [address] [place] [address] Dec, Chest wall muscle strain S29 .011A [place] [address] [id number] [address] [place] [address] Nov, Encounter for long-term (cur rent) use of anticoagulants V58.61 and Atrial fibrillation 427.31 [place] [address] [id number] [address] [place] [address] Nov, Atrial fibrillation 427.31 [place] [address] [id number] [address] [place] [address] Nov, [place] [address] [id number] [address] [place] [address] Nov, Atrial fibrillation 427.31 [place] [address] [id number] [address] [place] [phone] Nov, Atrial fibrillation 427.31 [place] [address] [id number] [address] [place] [address] Oct, Encounter for long-term (cur rent) use of anticoagulants V58.61 [place] [address] [id number] [address] [place] [address] Sep, Encounter for long-term (cur rent) use of anticoagulants V58.61 [place] [address] [id number] [address] [place] [address] Aug, Encounter for long-term (cur rent) use of anticoagulants V58.61 [facility] [address] [id number] [address] [place] [address] July, [facility] [address] [id number] [address] [place] [phone] July, [facility] [address] [id number] [address] [place] [address] July, [facility] [address] [id number] [address] [place] [phone] Jun, [facility] [address] [id number] [address] [place] [phone] Jun, [facility] [address] [id number] [address] [place] [address] May, [facility] [address] [id number] [address] [place] [address] May, [facility] [address] [id number] [address] [place] [address] May, [facility] [address] [id number] [address] [place] [phone] Apr, [facility] [address] [id number] [address] [place] [phone] Apr, [facility] [address] [id number] [address] [place] [phone] Apr, [facility] [address] [id number] [address] [place] [phone] Apr, [facility] [address] [id number] [address] [place] [phone] Apr, [facility] [address] [id number] [address] [place] [phone] Apr, [facility] [address] [id number] [address] [place] [phone] Apr, [facility] [address] [id number] [address] [place] [address], [place] [id number] Mar, [facility] [address] [id number] [address] [place] [address], [place] [id number] Mar, [facility] [address] [id number] [address] [place] [address], [place] [id number] Mar, [facility] [address] [id number] [address] [place] [address], [place] [id number] Mar, [facility] [address] [id number] [address] [place] [address], [place] [id number] Mar, [facility] [address] [id number] [address] [place] [address], [place] [id number] Mar, [facility] [address] [id number] [address] [place] [address], [place] [id number] Mar, [facility] [address] [id number] [address] [place] [address], [place] [id number] Mar, [facility] [address] [id number] [address] [place] [address], [place] [id number] Feb, [facility] [address] [id number] [address] [place] [address], [place] [id number] Feb, [facility] [address] [id number] [address] [place] [address], [place] [id number] Feb, [facility] [address] [id number] [address] [place] [address], [place] [id number] Feb, [facility] [address] [id number] [address] [place] [address], [place] [id number] Feb, [facility] [address] [id number] [address] [place] [address], [place] [id number] Feb, [facility] [address] [id number] [address] [place] [address], [place] [id number] Jan, [facility] [address] [id number] [address] [place] [address], [place] [id number] Jan, [facility] [address] [id number] [address] [place] [address], [place] [id number] Jan, [facility] [address] [id number] [address] [place] [address], [place] [id number] Jan, [facility] [address] [id number] [address] [place] [address], [place] [id number] Jan, [facility] [address] [id number] [address] [place] [address], [place] [id number] Jan, [facility] [address] [id number] [address] [place] [address], [place] [id number] Dec, [facility] [address] [id number] [address] [place] [address], [place] [id number] Dec, [facility] [address] [id number] [address] [place] [address], [place] [id number] Dec, [facility] [address] [id number] [address] [place] [address], [place] [id number] Dec, [facility] [address] [id number] [address] [place] [address], [place] [id number] Nov, [facility] [address] [id number] [address] [place] [address], [place] [id number] Nov, [facility] [address] [id number] [address] [place] [address], [place] [id number] Oct, [facility] [address] [id number] [address] [place] [address], [place] [id number] Oct, [facility] [address] [id number] [address] [place] [address], [place] [id number] Oct, [facility] [address] [id number] [address] [place] [address], [place] [id number] Oct, [facility] [address] [id number] [address] [place] [address], [place] [id number] Oct, [facility] [address] [id number] [address] [place] [address] Oct, [facility] [address] [id number] [address] [place] [address], [place] [id number] Sep, [facility] [address] [id number] [address] [place] [address] Sep, [facility] [address] [id number] [address] [place] [address], [place] [id number] Sep, [facility] [address] [id number] [address] [place] [address], [place] [address] Sep, [facility] [address] [id number] [address] [place] [address], [place] [id number] Sep, [facility] [address] [id number] [address] [place] [address], [place] [id number] Sep, [facility] [address] [id number] [address] [place] [address], [place] [id number] Sep, [facility] [address] [id number] [address] [place] [address], [place] [id number] Sep, [facility] [address] [id number] [address] [place] [address], [place] [id number] Sep, [facility] [address] [id number] [address] [place] [address], [place] [id number] Sep, [facility] [address] [id number] [address] [place] [address], [place] [id number] Sep, [facility] [address] [id number] [address] [place] [address], [place] [id number] Sep, [facility] [address] [id number] [address] [place] [address], [place] [id number] Sep, [facility] [address] [id number] [address] [place] [address], [place] [id number] Sep, [facility] [address] [id number] [address] [place] [address], [place] [id number] Feb, [facility] [address] [facility] [id number] [address] [place] [id number] Feb, [facility] [address] [facility] [id number] [address] [place] [id number] July, [facility] [address] [facility] [id number] [address] [place] [id number] Apr, [facility] [address] [facility] [id number] [address] [place] [id number] Apr, [facility] [address] [facility] [id number] [address] [place] [id number] Apr, [facility] [address] [facility] [id number] [address] [place] [phone] Apr, IMMUNIZATIONS No Known Immunizations SOCIAL HISTORY Never Assessed REASON FOR VISIT PLAN OF CARE VITAL SIGNS MEDICATIONS Unknown Medications RESULTS No Results PROCEDURES Procedure Date Ordered Result Body Site PROTHROMBIN TIME Apr 17, 2014 INSTRUCTIONS MEDICATIONS ADMINISTERED No Known Medications MEDICAL (GENERAL) HISTORY Type Description Date Medical History Atrial fibrillation Medical History hx of c. diff Medical History Stress test performed; EF 25% Last test 2015 was at 60% Medical History Palpitations Medical History Cardiac Arrest with CPR and Intubation with ET tube and transferred to [facility] Trach placed 03/2017 due to A Fib resulting in anoxic brain injury and memory loss Medical History 03/02-03/03/18 heart surgery Surgical History Defibrillation placed 2017 Surgical History Trach/PEG Tube placed and removed [facility] a fter Intubation 2017 Surgical History heart surgery 2018 Surgical History heart surgery 03/02-03/03/18 Hospitalization History ICU for Afib 09/2013 Hospitalization History Admitted to Transferred to [facility] ICU/ Rehab 03/2017 Hospitalization History Coded, Defribrillated and ET tube placed for ventillation and transferred to [facility] 03/2017 Hospitalization History surgery 09/29/2017 Hospitalization History heart surgery 03/02-03/03/18
[2019-10-28] MEDS ORDERED: ASPIRIN 81 MG CHEW (CHILDREN'S ASA) PO ONE (10:00)
--- OUTSIDE RECORDS SUMMARY | 2019-10-28 10:00 | XMS REPORT ---
Author Author Je AMADOR [facility] Address [address] [place] [address] Care Team Providers Care School Examiner Name Role Phone KARI AMADOR Unavailable PROBLEMS Type Condition ICD9-CM Code RCQ70-LP Code Onset Dates Condition S tatus SNOMED Code Problem Anoxic brain injury G93.1 Active 852895574 Problem Cardiomyopathy I42.9 Active 15326 001 Problem intermediate frame tender (current) use of anticoagulants Z79.01 Active 091873102 Problem Adjustment disorder with depressed mood F43.21 Active 95186580 Problem History of PA (myocardial infarction) I25.2 Active 964392876 Problem Chronic atrial fibrillation I48.2 Ac tive 561397364 Problem Non-ischemic cardiomyopathy I42.8 Ac tive 11456924 Problem History of cardiac arrest Z86.74 Acti ve 846061741 Problem Cardiac defibrillator in place Z95.810 Active [id number] ALLERGIES No Information ENCOUNTERS Encounter Location Date Diagnosis [facility] [address] [facility] [id number] [address] [place] [address] [id number] Sep, Caries K02.9 [facility] [address] [place] [id number] [address] [place] [address] [id number] Aug, Caries K02.9 [facility] [address] [facility] [id number] [address] [place] [address] [id number] July, Caries K02.9 [facility] [address] [facility] [id number] [address] [place] [address] [id number] July, Dental examination Z01.20 [facility] [address] [facility] [id number] [address] [place] [address] [id number] July, Caries K02.9 [facility] [address] [facility] [id number] [address] [place] [address] Jun, [facility] [address] [id number] [address] [place] [address] [id number] Jun, Caries K02.9 [facility] [address] [facility] [id number] [address] [place] [address] Jun, Chronic atrial fibrillation I48.2 ; retirement (current) use of anticoagulants Z79.01 ; Cardiomyopathy I42.9 and Cardiac defibrillator in place Z95.810 [facility] [address] [id number] [place] [address] [id number] May, Caries K02.9 [facility] [address] [facility] [id number] [address] [place] [address] Apr, History of PA (myocardial in farction) I25.2 and SOB (shortness of breath) R06.02 [facility] [address] [facility] [id number] [address] [place] [phone] Apr, [facility] [address] [id number] [address] [place] [address] Apr, [facility] [address] [facility] [id number] [place] [phone] Apr, Canopal sore K12.0 [facility] [address] [facility] [id number] [address] [place] [address] [id number] Apr, Dental examination Z01.20 [facility] [address] [id number] [place] [address] [id number] Mar, Caries K02.9 [facility] [address] [facility] [id number] [address] [place] [address] Feb, Surgery follow-up Z09 [facility] [address] [id number] [place] [address] [id number] Feb, Caries K02.9 [facility] [address] [facility] [id number] [address] [place] [address] [id number] Jan, Caries K02.9 [facility] [address] [place] [id number] [address] [place] [address] Oct, Foreign body in subcutaneous tissue T14.8XXA [facility] [address] [id number] [address] [place] [address] Sep, Chronic atrial fibrillation I48.2 ; Non-ischemic cardiomyopathy I42.8 ; Anoxic brain injury G93.1 and Adjustment disorder with depressed mood F43.21 [facility] [address] [id number] [address] [place] [phone] Aug, [facility] [address] [id number] [address] [place] [phone] July, [facility] [address] [id number] [address] [place] [address] July, [facility] [address] [id number] [address] [place] [address] Jun, Adjustment disorder with dep ressed mood F43.21 [facility] [address] [id number] [address] [place] [address] Jun, [facility] [address] [id number] [address] [place] [address] Jun, [facility] [address] [id number] [address] [place] [address] May, [facility] [address] [id number] [address] [place] [address] May, [facility] [address] [id number] [address] [place] [address] May, [facility] [address] [id number] [address] [place] [phone] May, [facility] [address] [id number] [address] [place] [address] May, History of cardiac arrest Z8 6.74 ; Cardiac defibrillator in place Z95.810 ; Chronic atrial fibrillation I48.2 and Current moderate episode of major depressive disorder without prior episode F32.1 [facility] [address] [id number] [address] [place] [address] May, [facility] [address] [facility] [id number] [address] [place] [address] Mar, retirement (current) use of a nticoagulants Z79.01 [facility] [address] [facility] [id number] [address] [place] [address] Mar, [facility] [address] [facility] [id number] [address] [place] [address] Mar, intermediate frame tender (current) use of a nticoagulants Z79.01 [facility] [address] [facility] [id number] [address] [place] [address] Feb, Afib I48.91 [place] [address] [facility] [id number] [address] [place] [address] Feb, intermediate frame tender (current) use of a nticoagulants Z79.01 [facility] [address] [facility] [id number] [address] [place] [address] Jan, Other viral agents as the ca use of diseases classified elsewhere B97.89 ; Acute upper respiratory infection, unspecified J06.9 and Body aches R52 [place] [address] [facility] [id number] [address] [place] [address] Jan, Afib I48.91 [facility] [address] [facility] [id number] [address] [place] [address] Jan, Afib I48.91 and intermediate frame tender (c urrent) use of anticoagulants Z79.01 [facility] [address] [facility] [id number] [address] [place] [address] Dec, Afib I48.91 [facility] [address] [facility] [id number] [address] [place] [address] Dec, Chronic atrial fibrillation I48.2 [place] [address] [id number] [address] [place] [address] Nov, Hypertension I10 [place] [address] [id number] [address] [place] [address] Oct, Chronic atrial fibrillation I48.2 [place] [address] [facility] [id number] [address] [place] [address] Oct, retirement (current) use of a nticoagulants Z79.01 [place] [address] [id number] [address] [place] [address] Oct, Chronic atrial fibrillation I48.2 [place] [address] [facility] [id number] [address] [place] [address] Oct, Chronic atrial fibrillation I48.2 [place] [address] [facility] [id number] [address] [place] [address] Sep, intermediate frame tender (current) use of a nticoagulants Z79.01 ; Hypertension I10 ; Cardiomyopathy I42.9 and Afib I48.91 [place] [address] [id number] [address] [place] [address] Sep, intermediate frame tender (current) use of a nticoagulants Z79.01 ; Hypertension I10 ; Cardiomyopathy I42.9 and Afib I48.91 [place] [address] [facility] [id number] [address] [place] [address] Aug, retirement (current) use of a nticoagulants Z79.01 [place] [address] [id number] [address] [place] [address] Aug, retirement (current) use of a nticoagulants Z79.01 [place] [address] [id number] [address] [place] [address] Aug, intermediate frame tender (current) use of a nticoagulants Z79.01 [place] [address] [facility] [id number] [address] [place] [address] July, retirement (current) use of a nticoagulants Z79.01 [facility] [address] [id number] [address] [place] [address] Jun, retirement (current) use of a nticoagulants Z79.01 [facility] [address] [id number] [address] [place] [address] Jun, retirement (current) use of a nticoagulants Z79.01 [facility] [address] [id number] [address] [place] [address] May, Chronic atrial fibrillation I48.2 [place] [address] [id number] [address] [place] [address] May, [facility] [address] [facility] [id number] [address] [place] [address] May, intermediate frame tender (current) use of a nticoagulants Z79.01 [place] [address] [facility] [id number] [address] [place] [address] May, retirement (current) use of a nticoagulants Z79.01 [place] [address] [facility] [id number] [address] [place] [address] May, Afib I48.91 ; Non-ischemic c ardiomyopathy I42.8 ; Hypotension, unspecified hypotension type I95.9 and Heart palpitations R00.2 [facility] [address] [id number] [address] [place] [address] 16 Apr, 2016 intermediate frame tender (current) use of a nticoagulants Z79.01 [facility] [address] [id number] [address] [place] [address] Apr, retirement (current) use of a nticoagulants Z79.01 [place] [address] [facility] [id number] [address] [place] [address] Mar, retirement (current) use of a nticoagulants Z79.01 [place] [address] [facility] [id number] [address] [place] [address] Feb, retirement (current) use of a nticoagulants Z79.01 [place] [address] [facility] [id number] [address] [place] [address] Feb, intermediate frame tender (current) use of a nticoagulants Z79.01 [place] [address] [facility] [id number] [address] [place] [address] Jan, retirement (current) use of a nticoagulants Z79.01 [place] [address] [facility] [id number] [address] [place] [address] Jan, intermediate frame tender (current) use of a nticoagulants Z79.01 [place] [address] [facility] [id number] [address] [place] [address] Dec, intermediate frame tender (current) use of a nticoagulants Z79.01 [place] [address] [facility] [id number] [address] [place] [address] Dec, intermediate frame tender (current) use of a nticoagulants Z79.01 [place] [address] [facility] [id number] [address] [place] [address] Oct, intermediate frame tender (current) use of a nticoagulants Z79.01 [place] [address] [facility] [id number] [address] [place] [address] Oct, intermediate frame tender (current) use of a nticoagulants Z79.01 [place] [address] [id number] [address] [place] [address] Oct, Afib I48.91 ; Cardiomyopathy I42.9 ; Palpitations R00.2 and Non- rheumatic tricuspid valve insufficiency I36.1 [place] [address] [facility] [id number] [address] [place] [address] Sep, Chronic atrial fibrillation I48.2 ; intermediate frame tender (current) use of anticoagulants Z79.01 ; Cardiomyopathy I42.9 and Hypertension I10 [facility] [address] [facility] [id number] [address] [place] [address] Aug, Allergic rhinitis, unspecifi ed allergic rhinitis type J30.9 [facility] [address] [facility] [id number] [address] [place] [address] Aug, retirement (current) use of a nticoagulants Z79.01 [facility] [address] [facility] [id number] [address] [place] [address] Jun, retirement (current) use of a nticoagulants Z79.01 [place] [address] [facility] [id number] [address] [place] [address] Jun, retirement (current) use of a nticoagulants Z79.01 [facility] [address] [facility] [id number] [address] [place] [address] Jun, retirement (current) use of a nticoagulants Z79.01 [facility] [address] [facility] [id number] [address] [place] [address] Jun, [facility] [address] [facility] [id number] [address] [place] [address] May, Encounter for long-term (cur rent) use of anticoagulants V58.61 [facility] [address] [facility] [id number] [address] [place] [address] May, Encounter for long-term (cur rent) use of anticoagulants V58.61 [place] [address] [facility] [id number] [address] [place] [address] May, Encounter for long-term (cur rent) use of anticoagulants V58.61 [facility] [address] [facility] [id number] [address] [place] [address] Apr, Encounter for long-term (cur rent) use of anticoagulants V58.61 [place] [address] [facility] [id number] [address] [place] [address] Apr, retirement (current) use of a nticoagulants Z79.01 [place] [address] [facility] [id number] [address] [place] [address] Apr, Afib I48.91 ; Hypertension I 10 ; Cardiomyopathy I42.9 and Palpitations R00.2 [place] [address] [facility] [id number] [address] [place] [address] Mar, intermediate frame tender (current) use of a nticoagulants Z79.01 [place] [address] [facility] [id number] [address] [place] [address] Mar, Encounter for long-term (cur rent) use of anticoagulants V58.61 [place] [address] [facility] [id number] [address] [place] [address] Mar, Encounter for long-term (cur rent) use of anticoagulants V58.61 [place] [address] [facility] [id number] [address] [place] [address] Mar, intermediate frame tender (current) use of a nticoagulants Z79.01 and Encounter for therapeutic drug level monitoring Z51.81 [place] [address] [facility] [id number] [address] [place] [address] Feb, intermediate frame tender (current) use of a nticoagulants Z79.01 and Encounter for therapeutic drug level monitoring Z51.81 [place] [address] [facility] [id number] [address] [place] [address] Feb, Encounter for long-term (cur rent) use of anticoagulants V58.61 [place] [address] [facility] [id number] [address] [place] [address] Feb, [place] [address] [facility] [id number] [address] [place] [address] Feb, Encounter for long-term (cur rent) use of anticoagulants V58.61 [place] [address] [facility] [id number] [address] [place] [address] Feb, Encounter for therapeutic dr ug level monitoring Z51.81 [place] [address] [id number] [address] [place] [address] Jan, [place] [address] [id number] [address] [place] [address] Dec, Encounter for long-term (cur rent) use of anticoagulants V58.61 and Atrial fibrillation 427.31 [place] [address] [id number] [address] [place] [address] Dec, Chest wall muscle strain S29 .011A [place] [address] [id number] [address] [place] [address] Nov, Encounter for long-term (cur rent) use of anticoagulants V58.61 and Atrial fibrillation 427.31 [place] [address] [id number] [address] [place] [address] Nov, Atrial fibrillation 427.31 [place] [address] [id number] [address] [place] [address] Nov, [place] [address] [id number] [address] [place] [address] Nov, Atrial fibrillation 427.31 [place] [address] [id number] [address] [place] [address] Nov, Atrial fibrillation 427.31 [place] [address] [id number] [address] [place] [address] Oct, Encounter for long-term (cur rent) use of anticoagulants V58.61 [place] [address] [id number] [address] [place] [address] Sep, Encounter for long-term (cur rent) use of anticoagulants V58.61 [place] [address] [id number] [address] [place] [address] Aug, Encounter for long-term (cur rent) use of anticoagulants V58.61 [place] [address] [id number] [address] [place] [address] July, [facility] [address] [id number] [address] [place] [address], [place] [address] July, [facility] [address] [id number] [address] [place] [address] July, [facility] [address] [id number] [address] [place] [address], [place] [address] Jun, [facility] [address] [id number] [address] [place] [address] Jun, [facility] [address] [id number] [address] [place] [address], [place] [address] May, [facility] [address] [id number] [address] [place] [address] May, [facility] [address] [id number] [address] [place] [address] May, [facility] [address] [id number] [address] [place] [address] Apr, [facility] [address] [id number] [address] [place] [address], [place] [address] Apr, [facility] [address] [id number] [address] [place] [address] Apr, [facility] [address] [id number] [address] [place] [address], [place] [address] Apr, [facility] [address] [id number] [address] [place] [address] Apr, [facility] [address] [id number] [address] [place] [address] Apr, [facility] [address] [id number] [address] [place] [address] Apr, [facility] [address] [id number] [address] [place] [address] Mar, [facility] [address] [id number] [address] [place] [address], [place] [address] Mar, [facility] [address] [id number] [address] [place] [address], [place] [address] Mar, [facility] [address] [id number] [address] [place] [address], [place] [address] Mar, [facility] [address] [id number] [address] [place] [address], [place] [address] Mar, [facility] [address] [id number] [address] [place] [address], [place] [address] Mar, [facility] [address] [id number] [address] [place] [address], [place] [address] Mar, [facility] [address] [id number] [address] [place] [address], [place] [address] Mar, [facility] [address] [id number] [address] [place] [address], [place] [address] Feb, [facility] [address] [id number] [address] [place] [address], [place] [address] Feb, [facility] [address] [id number] [address] [place] [address], [place] [address] Feb, [facility] [address] [id number] [address] [place] [address], [place] [address] Feb, [facility] [address] [id number] [address] [place] [address], [place] [address] Feb, [facility] [address] [id number] [address] [place] [address], [place] [address] Feb, [facility] [address] [id number] [address] [place] [address], [place] [address] Jan, [facility] [address] [id number] [address] [place] [address], [place] [address] Jan, [facility] [address] [id number] [address] [place] [address], [place] [address] Jan, [facility] [address] [id number] [address] [place] [address], [place] [address] Jan, [facility] [address] [id number] [address] [place] [address], [place] [address] Jan, [facility] [address] [id number] [address] [place] [address], [place] [address] Jan, [facility] [address] [id number] [address] [place] [address], [place] [address] Dec, [facility] [address] [id number] [address] [place] [address], [place] [address] Dec, [facility] [address] [id number] [address] [place] [address], [place] [address] Dec, [facility] [address] [id number] [address] [place] [address], [place] [address] Dec, [facility] [address] [id number] [address] [place] [address], [place] [address] Nov, [facility] [address] [id number] [address] [place] [address], [place] [address] Nov, [facility] [address] [id number] [address] [place] [address], [place] [address] Oct, [facility] [address] [id number] [address] [place] [address], [place] [address] Oct, [facility] [address] [id number] [address] [place] [address], [place] [address] Oct, [facility] [address] [id number] [address] [place] [address], [place] [address] Oct, [facility] [address] [id number] [address] [place] [address], [place] [address] Oct, [facility] [address] [id number] [address] [place] [address], [place] [address] Oct, [facility] [address] [id number] [facility] [place] [address] Sep, 2013 [facility] [address] [id number] [facility] [place] [address] Sep, [facility] [address] [id number] [facility] [place] [address] Sep, [facility] [address] [id number] [address] [place] [address], [place] [address] Sep, [facility] [address] [id number] [address] [place] [address], [place] [address] Sep, [facility] [address] [id number] [address] [place] [address], [place] [address] Sep, [facility] [address] [id number] [place] [address], [place] [address] Sep, [facility] [address] [id number] [address] [place] [address], [place] [address] Sep, [facility] [address] [id number] [address] [place] [address], [place] [address] Sep, [facility] [address] [id number] [address] [place] [address], [place] [address] Sep, [facility] [address] [id number] [address] [place] [address], [place] [address] Sep, [facility] [address] [id number] [address] [place] [address], [place] [address] Sep, [facility] [address] [id number] [address] [place] [address], [place] [address] Sep, [facility] [address] [id number] [address] [place] [address], [place] [address] Sep, [facility] [address] [id number] [address] [place] [address], [place] [address] Feb, [facility] [address] [id number] [address] [place] [address], [place] [address] Feb, [facility] [address] [facility] [id number] [address] [place] [id number] July, [facility] [address] [facility] [id number] [address] [place] [id number] Apr, [facility] [address] [facility] [id number] [address] [place] [id number] Apr, [facility] [address] [facility] [id number] [address] [place] [id number] Apr, [facility] [address] [facility] [id number] [address] [place] [id number] Apr, IMMUNIZATIONS No Known Immunizations SOCIAL HISTORY Never Assessed REASON FOR VISIT PLAN OF CARE VITAL SIGNS MEDICATIONS Unknown Medications RESULTS No Results PROCEDURES Procedure Date Ordered Result Body Site PROTHROMBIN TIME Apr 01, 2014 INSTRUCTIONS MEDICATIONS ADMINISTERED No Known [...]
--- OUTSIDE RECORDS SUMMARY | 2019-10-28 10:00 | XMS REPORT ---
Author Author Je Farrell Doctor Organization [facility] Address Unknown Phone Unavailable Care Team Providers Care Bus Person Name Role Phone Migration, Doctor Unavailable Unavailable PROBLEMS Type Condition ICD9-CM Code [id number] Code Onset Dates Condition S tatus SNOMED Code Problem Anoxic brain injury G93.1 Active 542112723 Problem Cardiomyopathy I42.9 Active 35172 001 Problem 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 Active 576612143 Problem Adjustment disorder with depressed mood F43.21 Active 40343826 Problem History of [place] (myocardial infarction) I25.2 Active 084132383 Problem Chronic atrial fibrillation I48.2 Ac tive 740418216 Problem Non-ischemic cardiomyopathy I42.8 Ac tive 28472449 Problem History of cardiac arrest Z86.74 Acti ve 291577515 Problem Cardiac defibrillator in place Z95.810 Active 940619611 ALLERGIES No Information ENCOUNTERS Encounter Location Date Diagnosis [facility] [address] [id number] [address] [place] [address] [phone] July, [facility] [address] [id number] [address] [place] [address] [id number] July, [facility] [address] [id number] [address] [place] [address] [id number] July, Caries K02.9 [facility] [address] [id number] [address] [place] [phone] Jun, [facility] [address] [id number] [address] [place] [address] [id number] Jun, Caries K02.9 [facility] [address] [id number] [address] [place] [id number] Jun, Chronic atrial fibrillation I48.2 ; 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 ; Cardiomyopathy I42.9 and Cardiac defibrillator in place Z95.810 [facility] [address] [facility] [id number] [address] [place] [address] [id number] May, Caries K02.9 [facility] [address] [id number] Apr, History of [place] (myocardial in farction) I25.2 and SOB (shortness of breath) R06.02 [facility] [address] [id number] Apr, [facility] [address] [phone] Apr, [facility] [address] [address] Apr, Canker sore K12.0 [facility] [address] [id number] Apr, Dental examination Z01.20 [facility] [address] [id number] Mar, Caries K02.9 [facility] [address] [id number] Feb, Surgery follow-up Z09 [facility] [address] [id number] Feb, Caries K02.9 [facility] [address] [id number] Jan, Caries K02.9 [facility] [address] [id number] Oct, Foreign body in subcutaneous tissue T14.8XXA [facility] [address] [address] Sep, Chronic atrial fibrillation I48.2 ; Non-ischemic cardiomyopathy I42.8 ; Anoxic brain injury G93.1 and Adjustment disorder with depressed mood F43.21 [facility] [address] [address] Aug, [facility] [address] [id number] [address] [place] [phone] July, [facility] [address] [id number] [address] [place] [phone] July, [facility] [address] [id number] [address] [place] [phone] Jun, Adjustment disorder with dep ressed mood F43.21 [facility] [address] [id number] [address] [place] [phone] Jun, [facility] [address] [id number] [address] [place] [phone] Jun, [facility] [address] [id number] [address] [place] [phone] May, [facility] [address] [id number] [address] [place] [phone] May, [facility] [address] [id number] [address] [place] [phone] May, [facility] [address] [id number] [address] [place] [phone] May, [facility] [address] [id number] [address] [place] [phone] May, History of cardiac arrest Z8 6.74 ; Cardiac defibrillator in place Z95.810 ; Chronic atrial fibrillation I48.2 and Current moderate episode of major depressive disorder without prior episode F32.1 [facility] [address] [id number] [address] [place] [phone] May, [facility] [address] [id number] [address] [place] [phone] Mar, prison (current) use of a nticoagulants Z79.01 [facility] [address] [id number] [address] [place] [phone] Mar, [facility] [address] [facility] [id number] [address] [place] [phone] Mar, prison (current) use of a nticoagulants Z79.01 [facility] [address] [facility] [id number] [address] [place] [phone] Feb, Afib I48.91 [facility] [address] [facility] [id number] [address] [place] [phone] Feb, 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 [address] [facility] [id number] [address] [place] [phone] Jan, Other viral agents as the ca use of diseases classified elsewhere B97.89 ; Acute upper respiratory infection, unspecified J06.9 and Body aches R52 [place] [address] [facility] [id number] [address] [place] [phone] Jan, Afib I48.91 [place] [address] [facility] [id number] [address] [place] [phone] Jan, Afib I48.91 and 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 Z79.01 [facility] [address] [facility] [id number] [address] [place] [phone] Dec, Afib I48.91 [place] [address] [facility] [id number] [address] [place] [phone] Dec, Chronic atrial fibrillation I48.2 [facility] [address] [facility] [id number] [address] [place] [phone] Nov, Hypertension I10 [place] [address] [facility] [id number] [address] [place] [phone] Oct, Chronic atrial fibrillation I48.2 [facility] [address] [facility] [id number] [address] [place] [phone] Oct, prison (current) use of a nticoagulants Z79.01 [facility] [address] [id number] [address] [place] [phone] Oct, Chronic atrial fibrillation I48.2 [facility] [address] [id number] [address] [place] [id number] Oct, Chronic atrial fibrillation I48.2 [facility] [address] [id number] [address] [place] [id number] Sep, 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 ; Hypertension I10 ; Cardiomyopathy I42.9 and Afib I48.91 [facility] [address] [id number] [address] [place] [id number] Sep, 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 ; Hypertension I10 ; Cardiomyopathy I42.9 and Afib I48.91 [place] [address] [id number] [address] [place] [phone] Aug, prison (current) use of a nticoagulants Z79.01 [facility] [address] [id number] [address] [place] [phone] Aug, 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 [facility] [address] [id number] [address] [place] [phone] Aug, 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 [place] [address] [id number] [address] [place] [phone] July, prison (current) use of a nticoagulants Z79.01 [place] [address] [id number] [address] [place] [phone] Jun, prison (current) use of a nticoagulants Z79.01 [facility] [address] [id number] [address] [place] [phone] Jun, 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 [facility] [address] [id number] [address] [place] [phone] 20 May, 2016 Chronic atrial fibrillation I48.2 [place] [address] [facility] [id number] [address] [place] [phone] 17 May, 2016 [place] [address] [facility] [id number] [address] [place] [phone] May, prison (current) use of a nticoagulants Z79.01 [place] [address] [facility] [id number] [address] [place] [phone] 10 May, 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 [place] [address] [facility] [id number] [address] [place] [phone] May, Afib I48.91 ; Non-ischemic c ardiomyopathy I42.8 ; Hypotension, unspecified hypotension type I95.9 and Heart palpitations R00.2 [place] [address] [facility] [id number] [address] [place] [id number] 16 Apr, 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 [place] [address] [facility] [id number] [address] [place] [id number] Apr, 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 [place] [address] [facility] [id number] [address] [place] [phone] Mar, prison (current) use of a nticoagulants Z79.01 [place] [address] [facility] [id number] [address] [place] [phone] Feb, 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 [place] [address] [facility] [id number] [address] [place] [phone] Feb, prison (current) use of a nticoagulants Z79.01 [place] [address] [facility] [id number] [address] [place] [phone] Jan, prison (current) use of a nticoagulants Z79.01 [facility] [address] [facility] [id number] [address] [place] [phone] Jan, prison (current) use of a nticoagulants Z79.01 [facility] [address] [facility] [id number] [address] [place] [phone] Dec, 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 [facility] [address] [facility] [id number] [address] [place] [phone] Dec, 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 [place] [address] [facility] [id number] [address] [place] [phone] Oct, prison (current) use of a nticoagulants Z79.01 [place] [address] [facility] [id number] [address] [place] [phone] Oct, 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 [facility] [address] [facility] [id number] [address] [place] [phone] Oct, Afib I48.91 ; Cardiomyopathy I42.9 ; Palpitations R00.2 and Non- rheumatic tricuspid valve insufficiency I36.1 [facility] [address] [facility] [id number] [address] [place] [phone] Sep, Chronic atrial fibrillation I48.2 ; 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 ; Cardiomyopathy I42.9 and Hypertension I10 [facility] [address] [facility] [id number] [address] [place] [phone] Aug, Allergic rhinitis, unspecifi ed allergic rhinitis type J30.9 [facility] [address] [facility] [id number] [address] [place] [phone] Aug, 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 [facility] [address] [facility] [id number] [address] [place] [phone] Jun, prison (current) use of a nticoagulants Z79.01 [place] [address] [facility] [id number] [address] [place] [phone] Jun, prison (current) use of a nticoagulants Z79.01 [place] [address] [facility] [id number] [address] [place] [phone] Jun, prison (current) use of a nticoagulants Z79.01 [place] [address] [facility] [id number] [address] [place] [phone] Jun, [place] [address] [facility] [id number] [address] [place] [phone] May, Encounter for long-term (cur rent) use of anticoagulants V58.61 [place] [address] [facility] [id number] [address] [place] [phone] May, Encounter for long-term (cur rent) use of anticoagulants V58.61 [place] [address] [facility] [id number] [address] [place] [phone] May, Encounter for long-term (cur rent) use of anticoagulants V58.61 [place] [address] [facility] [id number] [address] [place] [phone] Apr, Encounter for long-term (cur rent) use of anticoagulants V58.61 [place] [address] [facility] [id number] [address] [place] [phone] Apr, prison (current) use of a nticoagulants Z79.01 [place] [address] [facility] [id number] [address] [place] [phone] Apr, Afib I48.91 ; Hypertension I 10 ; Cardiomyopathy I42.9 and Palpitations R00.2 [place] [address] [facility] [id number] [address] [place] [phone] Mar, 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 [place] [address] [id number] [address] [place] [phone] Mar, Encounter for long-term (cur rent) use of anticoagulants V58.61 [place] [address] [id number] [address] [place] [phone] Mar, Encounter for long-term (cur rent) use of anticoagulants V58.61 [place] [address] [id number] [address] [place] [phone] Mar, 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 and Encounter for therapeutic drug level monitoring Z51.81 [place] [address] [id number] [address] [place] [phone] Feb, 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 and Encounter for therapeutic drug level monitoring Z51.81 [place] [address] [id number] [address] [place] [phone] Feb, Encounter for long-term (cur rent) use of anticoagulants V58.61 [place] [address] [id number] [address] [place] [phone] Feb, [place] [address] [id number] [address] [place] [phone] Feb, Encounter for long-term (cur rent) use of anticoagulants V58.61 [place] [address] [id number] [address] [place] [id number] Feb, Encounter for therapeutic dr ug level monitoring Z51.81 [place] [address] [id number] [address] [place] [phone] Jan, [place] [address] [id number] [address] [place] [phone] Dec, Encounter for long-term (cur rent) use of anticoagulants V58.61 and Atrial fibrillation 427.31 [place] [address] [id number] [address] [place] [phone] Dec, Chest wall muscle strain S29 .011A [facility] [address] [id number] [address] [place] [phone] Nov, Encounter for long-term (cur rent) use of anticoagulants V58.61 and Atrial fibrillation 427.31 [facility] [address] [id number] [address] [place] [phone] Nov, Atrial fibrillation 427.31 [facility] [address] [id number] [address] [place] [phone] Nov, [place] [address] [id number] [address] [place] [phone] Nov, Atrial fibrillation 427.31 [place] [address] [id number] [address] [place] [phone] Nov, Atrial fibrillation 427.31 [place] [address] [id number] [address] [place] [phone] Oct, Encounter for long-term (cur rent) use of anticoagulants V58.61 [place] [address] [id number] [address] [place] [phone] Sep, Encounter for long-term (cur rent) use of anticoagulants V58.61 [place] [address] [id number] [address] [place] [phone] Aug, Encounter for long-term (cur rent) use of anticoagulants V58.61 [place] [address] [id number] [address] [place] [phone] July, [facility] [address] [id number] [address] [place] [phone] July, [facility] [address] [id number] [address] [place] [phone] July, [facility] [address] [id number] [address] [place] [phone] Jun, [facility] [place] [facility] [address] [id number] [address] [place] [address], [place] [address] Jun, [facility] [place] [facility] [address] [id number] [address] [place] [address], [place] [phone] May, [facility] [place] [facility] [address] [id number] [address] [place] [address], [place] [address] May, [facility] [place] [facility] [address] [id number] [address] [place] [address], [place] [address] May, [facility] [place] [facility] [address] [id number] [address] [place] [address], [place] [id number] 18 Apr, 2014 [facility] [place] [facility] [address] [id number] [address] [place] [address], [place] [address] Apr, [facility] [place] [facility] [address] [id number] [address] [place] [address], [place] [address] Apr, [facility] [place] [facility] [address] [id number] [address] [place] [address], [place] [phone] Apr, 2014 [facility] [place] [facility] [address] [id number] [address] [place] [address], [place] [address] Apr, [facility] [place] [facility] [address] [id number] [address] [place] [address], [place] [address] Apr, [facility] [place] [facility] [address] [id number] [address] [place] [address], [place] [address] Apr, [facility] [place] [facility] [address] [id number] [address] [place] [phone] Mar, [facility] [place] [facility] [address] [id number] [address] [place] [address], [place] [address] Mar, [facility] [place] [facility] [address] [id number] [address] [place] [id number] Mar, [facility] [place] [facility] [address] [id number] [address] [place] [id number] Mar, [facility] [place] [facility] [address] [id number] [address] [place] [phone] Mar, [facility] [address] [id number] [address] [place] [address], [place] [address] Mar, [facility] [address] [id number] [address] [place] [address], [place] [address] Mar, [facility] [address] [id number] [address] [place] [address], [place] [address] Mar, [facility] [address] [id number] [address] [place] [address], [place] [address] Feb, [facility] [address] [id number] [address] [place] [address], [place] [address] Feb, [facility] [address] [id number] [address] [place] [address], [place] [address] Feb, [facility] [address] [id number] [address] [place] [address], [place] [id number] Feb, [facility] [address] [id number] [address] [place] [address], [place] [address] Feb, [facility] [address] [id number] [address] [place] [address], [place] [id number] Feb, [facility] [address] [id number] [address] [place] [address], [place] [address] Jan, [facility] [address] [id number] [address] [place] [address], [place] [address] Jan, [facility] [address] [id number] [address] [place] [address], [place] [address] Jan, [facility] [address] [id number] [address] [place] [address], [place] [address] Jan, [facility] [address] [id number] [address] [place] [address], [place] [address] Jan, [facility] [address] [id number] [address] [place] [address], [place] [address] Jan, [facility] [address] [id number] [facility] [place] [address] Dec, [facility] [address] [id number] [address] [place] [address], [place] [address] Dec, [facility] [address] [id number] [address] [place] [address], [place] [address] Dec, [facility] [address] [id number] [address] [place] [address], [place] [address] Dec, [facility] [address] [id number] [address] [place] [address], [place] [address] Nov, [facility] [address] [id number] [address] [place] [address], [place] [address] Nov, [facility] [address] [id number] [address] [place] [address], [place] [address] Oct, [facility] [address] [id number] [address] [place] [address], [place] [address] Oct, [facility] [address] [id number] [address] [place] [address], [place] [address] Oct, [facility] [address] [id number] [address] [place] [address], [place] [address] Oct, [facility] [address] [id number] [address] [place] [address], [place] [address] Oct, [facility] [address] [id number] [address] [place] [address], [place] [address] Oct, [facility] [address] [id number] [address] [place] [address], [place] [address] Sep, [facility] [address] [id number] [address] [place] [address], [place] [address] Sep, [facility] [address] [id number] [address] [place] [address], [place] [address] Sep, [facility] [address] [id number] [address] [place] [address], [place] [address] Sep, [facility] [address] [id number] [address] [place] [address], [place] [address] Sep, [facility] [address] [id number] [address] [place] [address], [place] [address] Sep, [facility] [address] [id number] [address] [place] [address], [place] [address] Sep, [facility] [address] [id number] [address] [place] [address], [place] [address] Sep, [facility] [address] [id number] [address] [place] [address], [place] [address] Sep, [facility] [address] [id number] [address] [place] [address], [place] [address] Sep, [facility] [address] [id number] [address] [place] [address], [place] [address] Sep, [facility] [address] [id number] [address] [place] [address], [place] [address] Sep, [facility] [address] [id number] [address] [place] [address], [place] [address] Sep, [facility] [address] [id number] [address] [place] [address], [place] [address] Sep, [facility] [address] [id number] [address] [place] [address], [place] [address] Feb, [facility] [address] [id number] [address] [place] [address], [place] [address] Feb, [facility] [address] [id number] [address] [place] [address], [place] [address] July, [facility] [address] [id number] [address] [place] [address], [place] [address] Apr, [facility] [address] [id number] [address] [place] [address], [place] [address] Apr, [facility] [address] [id number] [address] [place] [id number] Apr, [facility] [address] [facility] [id number] [address] [place] [id number] Apr, IMMUNIZATIONS No Known Immunizations SOCIAL HISTORY Never Assessed REASON FOR VISIT EMR-[facility] PLAN OF CARE VITAL SIGNS MEDICATIONS Unknown [...] [facility] Trach placed 03/2017 due to A Fib resulting in anoxic brain injury and memory loss Medical History 03/02-03/03/18 heart surgery Surgical History Defibrillation placed 2017 Surgical History Trach/PEG Tube placed and removed [facility] a fter Intubation 2017 Surgical History heart surgery 2017 Surgical History heart surgery 03/02-03/03/18 Hospitalization History ICU for Afib 09/2013 Hospitalization History Admitted to [facility] ICU/ Rehab 03/2017 Hospitalization History Coded, Defribrillated and ET tube placed for ventillation and transferred to [facility] 03/2017 Hospitalization History surgery 09/29/2017 Hospitalization History heart surgery 03/02-03/03/18
--- OUTSIDE RECORDS SUMMARY | 2019-10-28 10:00 | XMS REPORT ---
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 Name Role Phone Migration, Doctor Unavailable Unavailable PROBLEMS Type Condition ICD9-CM Code [id number] Code Onset Dates Condition S tatus SNOMED Code Problem Anoxic brain injury G93.1 Active 291375628 Problem Cardiomyopathy I42.9 Active 28004 001 Problem FPC (current) use of anticoagulants Z79.01 Active 155086016 Problem Adjustment disorder with depressed mood F43.21 Active 05714771 Problem History of [place] (myocardial infarction) I25.2 Active 052641863 Problem Chronic atrial fibrillation I48.2 Ac tive 545319412 Problem Non-ischemic cardiomyopathy I42.8 Ac tive 54365059 Problem History of cardiac arrest Z86.74 Acti ve 996790055 Problem Cardiac defibrillator in place Z95.810 Active 864052013 ALLERGIES No Information ENCOUNTERS Encounter Location Date Diagnosis [facility] [address] [facility] [id number] [address] [place] [address] [id number] Sep, [facility] [address] [facility] [id number] [address] [place] [address] [id number] Aug, Caries K02.9 [facility] [address] [id number] [address] [place] [address] [id number] July, Caries K02.9 [facility] [address] [id number] [address] [place] [address] [phone] July, Dental examination Z01.20 [facility] [address] [id number] [address] [place] [address] [id number] July, Caries K02.9 [facility] [address] [id number] [address] [place] [phone] Jun, [facility] [address] [id number] [address] [place] [address] [phone] Jun, Caries K02.9 [facility] [address] [facility] [id number] [address] [place] [phone] Jun, Chronic atrial fibrillation I48.2 ; 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.01 ; Cardiomyopathy I42.9 and Cardiac defibrillator in place Z95.810 [facility] [address] [facility] [id number] [place] [address] [id number] May, Caries K02.9 [facility] [address] [facility] [id number] [address] [place] [phone] Apr, History of [place] (myocardial in farction) I25.2 and SOB (shortness of breath) R06.02 [facility] [address] [facility] [id number] [address] [place] [phone] Apr, [facility] [address] [facility] [id number] [address] [place] [phone] Apr, [facility] [address] [place] [id number] [place] [phone] Apr, Canker sore K12.0 [facility] [address] [place] [address] [id number] Apr, Dental examination Z01.20 [facility] [address] [place] [address] [phone] Mar, Caries K02.9 [facility] [address] [id number] [address] [place] [phone] Feb, Surgery follow-up Z09 [facility] [address] [id number] [place] [address] [phone] Feb, Caries K02.9 [facility] [address] [facility] [id number] [place] [address] [id number] Jan, Caries K02.9 [facility] [address] [facility] [id number] [address] [place] [phone] Oct, Foreign body in subcutaneous tissue T14.8XXA [facility] [address] [id number] [address] [place] [phone] Sep, Chronic atrial fibrillation I48.2 ; Non-ischemic cardiomyopathy I42.8 ; Anoxic brain injury G93.1 and Adjustment disorder with depressed mood F43.21 [facility] [address] [id number] [address] [place] [phone] Aug, [facility] [address] [id number] [address] [place] [phone] July, [facility] [address] [id number] [address] [place] [phone] July, [facility] [address] [id number] [address] [place] [phone] Jun, Adjustment disorder with dep ressed mood F43.21 [facility] [address] [id number] [address] [place] [phone] Jun, [facility] [address] [id number] [address] [place] [phone] Jun, [facility] [address] [facility] [id number] [address] [place] [phone] May, [facility] [address] [id number] [address] [place] [phone] May, [facility] [address] [facility] [id number] [address] [place] [phone] May, [facility] [address] [id number] [address] [place] [phone] May, [facility] [address] [facility] [id number] [address] [place] [phone] May, History of cardiac arrest Z8 6.74 ; Cardiac defibrillator in place Z95.810 ; Chronic atrial fibrillation I48.2 and Current moderate episode of major depressive disorder without prior episode F32.1 [facility] [address] [facility] [id number] [address] [place] [phone] May, [facility] [address] [facility] [id number] [address] [place] [phone] Mar, lobsterman (current) use of a nticoagulants Z79.01 [facility] [address] [facility] [id number] [address] [place] [phone] Mar, [facility] [address] [facility] [id number] [address] [place] [phone] Mar, lobsterman (current) use of a nticoagulants Z79.01 [facility] [address] [facility] [id number] [address] [place] [phone] Feb, Afib I48.91 [facility] [address] [facility] [id number] [address] [place] [phone] Feb, lobsterman (current) use of a nticoagulants Z79.01 [facility] [address] [facility] [id number] [address] [place] [phone] Jan, Other viral agents as the ca use of diseases classified elsewhere B97.89 ; Acute upper respiratory infection, unspecified J06.9 and Body aches R52 [place] [address] [facility] [id number] [address] [place] [phone] Jan, Afib I48.91 [facility] [address] [facility] [id number] [address] [place] [phone] Jan, Afib I48.91 and lobsterman (c urrent) use of anticoagulants Z79.01 [facility] [address] [facility] [id number] [address] [place] [phone] Dec, Afib I48.91 [place] [address] [facility] [id number] [address] [place] [phone] Dec, Chronic atrial fibrillation I48.2 [place] [address] [facility] [id number] [address] [place] [phone] Nov, Hypertension I10 [place] [address] [facility] [id number] [address] [place] [phone] Oct, Chronic atrial fibrillation I48.2 [place] [address] [id number] [address] [place] [phone] Oct, FPC (current) use of a nticoagulants Z79.01 [place] [address] [id number] [address] [place] [phone] Oct, Chronic atrial fibrillation I48.2 [place] [address] [id number] [address] [place] [phone] Oct, Chronic atrial fibrillation I48.2 [place] [address] [id number] [address] [place] [phone] Sep, lobsterman (current) use of a nticoagulants Z79.01 ; Hypertension I10 ; Cardiomyopathy I42.9 and Afib I48.91 [place] [address] [facility] [id number] [address] [place] [phone] Sep, FPC (current) use of a nticoagulants Z79.01 ; Hypertension I10 ; Cardiomyopathy I42.9 and Afib I48.91 [place] [address] [id number] [address] [place] [phone] Aug, FPC (current) use of a nticoagulants Z79.01 [place] [address] [id number] [address] [place] [phone] Aug, lobsterman (current) use of a nticoagulants Z79.01 [place] [address] [id number] [address] [place] [phone] Aug, FPC (current) use of a nticoagulants Z79.01 [place] [address] [facility] [id number] [address] [place] [phone] July, FPC (current) use of a nticoagulants Z79.01 [place] [address] [id number] [address] [place] [phone] Jun, lobsterman (current) use of a nticoagulants Z79.01 [place] [address] [id number] [address] [place] [phone] Jun, lobsterman (current) use of a nticoagulants Z79.01 [place] [address] [id number] [address] [place] [phone] May, Chronic atrial fibrillation I48.2 [place] [address] [id number] [address] [place] [phone] 17 May, 2016 [place] [address] [id number] [address] [place] [phone] May, lobsterman (current) use of a nticoagulants Z79.01 [place] [address] [facility] [id number] [address] [place] [phone] 10 May, 2016 lobsterman (current) use of a nticoagulants Z79.01 [place] [address] [id number] [address] [place] [phone] May, Afib I48.91 ; Non-ischemic c ardiomyopathy I42.8 ; Hypotension, unspecified hypotension type I95.9 and Heart palpitations R00.2 [place] [address] [id number] [address] [place] [phone] 16 Apr, 2016 lobsterman (current) use of a nticoagulants Z79.01 [place] [address] [id number] [address] [place] [phone] Apr, lobsterman (current) use of a nticoagulants Z79.01 [place] [address] [facility] [id number] [address] [place] [phone] Mar, FPC (current) use of a nticoagulants Z79.01 [place] [address] [facility] [id number] [address] [place] [phone] Feb, lobsterman (current) use of a nticoagulants Z79.01 [facility] [address] [facility] [id number] [address] [place] [phone] Feb, FPC (current) use of a nticoagulants Z79.01 [facility] [address] [facility] [id number] [address] [place] [phone] Jan, FPC (current) use of a nticoagulants Z79.01 [facility] [address] [facility] [id number] [address] [place] [phone] Jan, FPC (current) use of a nticoagulants Z79.01 [facility] [address] [facility] [id number] [address] [place] [phone] Dec, FPC (current) use of a nticoagulants Z79.01 [place] [address] [facility] [id number] [address] [place] [phone] Dec, FPC (current) use of a nticoagulants Z79.01 [facility] [address] [facility] [id number] [address] [place] [phone] Oct, lobsterman (current) use of a nticoagulants Z79.01 [facility] [address] [facility] [id number] [address] [place] [phone] Oct, lobsterman (current) use of a nticoagulants Z79.01 [facility] [address] [facility] [id number] [address] [place] [phone] Oct, Afib I48.91 ; Cardiomyopathy I42.9 ; Palpitations R00.2 and Non- rheumatic tricuspid valve insufficiency I36.1 [facility] [address] [facility] [id number] [address] [place] [phone] Sep, Chronic atrial fibrillation I48.2 ; FPC (current) use of anticoagulants Z79.01 ; Cardiomyopathy I42.9 and Hypertension I10 [facility] [address] [facility] [id number] [address] [place] [phone] 04 [place], 2016 Allergic rhinitis, unspecifi ed allergic rhinitis type J30.9 [place] [address] [id number] [address] [place] [phone] Aug, FPC (current) use of a nticoagulants Z79.01 [place] [address] [id number] [address] [place] [phone] Jun, [facility] (current) use of a nticoagulants Z79.01 [place] [address] [id number] [address] [place] [phone] Jun, [facility] (current) use of a nticoagulants Z79.01 [place] [address] [id number] [address] [place] [phone] Jun, lobsterman (current) use of a nticoagulants Z79.01 [place] [address] [facility] [id number] [address] [place] [phone] Jun, [place] [address] [id number] [address] [place] [phone] May, Encounter for long-term (cur rent) use of anticoagulants V58.61 [place] [address] [id number] [address] [place] [phone] May, Encounter for long-term (cur rent) use of anticoagulants V58.61 [place] [address] [id number] [address] [place] [phone] May, Encounter for long-term (cur rent) use of anticoagulants V58.61 [place] [address] [id number] [address] [place] [phone] Apr, Encounter for long-term (cur rent) use of anticoagulants V58.61 [place] [address] [facility] [id number] [address] [place] [address] Apr, lobsterman (current) use of a nticoagulants Z79.01 [place] [address] [id number] [address] [place] [address] Apr, Afib I48.91 ; Hypertension I 10 ; Cardiomyopathy I42.9 and Palpitations R00.2 [place] [address] [facility] [id number] [address] [place] [phone] Mar, FPC (current) use of a nticoagulants Z79.01 [place] [address] [facility] [id number] [address] [place] [phone] Mar, Encounter for long-term (cur rent) use of anticoagulants V58.61 [place] [address] [facility] [id number] [address] [place] [phone] Mar, Encounter for long-term (cur rent) use of anticoagulants V58.61 [place] [address] [facility] [id number] [address] [place] [phone] Mar, lobsterman (current) use of a nticoagulants Z79.01 and Encounter for therapeutic drug level monitoring Z51.81 [place] [address] [facility] [id number] [address] [place] [phone] Feb, FPC (current) use of a nticoagulants Z79.01 and Encounter for therapeutic drug level monitoring Z51.81 [place] [address] [facility] [id number] [address] [place] [phone] Feb, Encounter for long-term (cur rent) use of anticoagulants V58.61 [place] [address] [facility] [id number] [address] [place] [phone] Feb, [place] [address] [facility] [id number] [address] [place] [phone] Feb, Encounter for long-term (cur rent) use of anticoagulants V58.61 [place] [address] [facility] [id number] [address] [place] [phone] Feb, Encounter for therapeutic dr ug level monitoring Z51.81 [place] [address] [facility] [id number] [address] [place] [phone] Jan, [facility] [address] [id number] [address] [place] [phone] Dec, Encounter for long-term (cur rent) use of anticoagulants V58.61 and Atrial fibrillation 427.31 [place] [address] [id number] [address] [place] [phone] Dec, Chest wall muscle strain S29 .011A [place] [address] [id number] [address] [place] [phone] Nov, Encounter for long-term (cur rent) use of anticoagulants V58.61 and Atrial fibrillation 427.31 [place] [address] [id number] [address] [place] [phone] Nov, Atrial fibrillation 427.31 [place] [address] [id number] [address] [place] [phone] Nov, [place] [address] [id number] [address] [place] [phone] Nov, Atrial fibrillation 427.31 [place] [address] [id number] [address] [place] [phone] Nov, Atrial fibrillation 427.31 [place] [address] [id number] [address] [place] [phone] Oct, Encounter for long-term (cur rent) use of anticoagulants V58.61 [place] [address] [id number] [address] [place] [phone] Sep, Encounter for long-term (cur rent) use of anticoagulants V58.61 [place] [address] [id number] [address] [place] [phone] Aug, Encounter for long-term (cur rent) use of anticoagulants V58.61 [place] [address] [id number] [address] [place] [phone] July, [place] [address] [id number] [address] [place] [phone] July, [facility] [address] [id number] [address] [place] [address], [place] [address] July, [facility] [address] [id number] [address] [place] [address], [place] [address] Jun, [facility] [address] [id number] [address] [place] [address], [place] [address] Jun, [facility] [address] [id number] [address] [place] [phone] May, [facility] [address] [id number] [address] [place] [address], [place] [address] May, [facility] [address] [id number] [address] [place] [phone] May, [facility] [address] [id number] [address] [place] [address], [place] [address] Apr, [facility] [address] [id number] [address] [place] [phone] Apr, [facility] [address] [id number] [address] [place] [address], [place] [address] Apr, [facility] [address] [id number] [address] [place] [address], [place] [address] Apr, [facility] [address] [id number] [address] [place] [address], [place] [address] Apr, [facility] [address] [id number] [address] [place] [phone] Apr, [facility] [address] [id number] [address] [place] [address], [place] [address] Apr, [facility] [address] [id number] [address] [place] [phone] Mar, [facility] [address] [id number] [address] [place] [phone] Mar, [facility] [address] [id number] [address] [place] [address], [place] [address] Mar, [facility] [address] [id number] [address] [place] [address], [place] [address] Mar, [facility] [address] [id number] [address] [place] [address], [place] [address] Mar, [facility] [address] [id number] [address] [place] [address], [place] [address] Mar, [facility] [address] [id number] [address] [place] [address], [place] [address] Mar, [facility] [address] [id number] [address] [place] [address], [place] [address] Mar, [facility] [address] [id number] [address] [place] [address], [place] [address] Feb, [facility] [address] [id number] [address] [place] [address], [place] [address] Feb, [facility] [address] [id number] [address] [place] [address], [place] [address] Feb, [facility] [address] [id number] [address] [place] [address], [place] [address] Feb, [facility] [address] [id number] [address] [place] [address], [place] [address] Feb, [facility] [address] [id number] [address] [place] [address], [place] [address] Feb, [facility] [address] [id number] [address] [place] [address], [place] [address] Jan, [facility] [address] [id number] [address] [place] [address], [place] [address] Jan, [facility] [address] [id number] [address] [place] [address], [place] [address] Jan, [facility] [address] [id number] [address] [place] [address], [place] [address] Jan, [facility] [address] [id number] [address] [place] [address], [place] [address] Jan, [facility] [address] [id number] [address] [place] [address], [place] [address] Jan, [facility] [address] [id number] [address] [place] [address], [place] [address] Dec, [facility] [address] [id number] [address] [place] [address], [place] [address] Dec, [facility] [address] [id number] [address] [place] [address], [place] [address] Dec, [facility] [address] [id number] [address] [place] [address], [place] [address] Dec, [facility] [address] [id number] [address] [place] [address], [place] [address] Nov, [facility] [address] [id number] [address] [place] [address], [place] [address] Nov, [facility] [address] [id number] [address] [place] [address], [place] [address] Oct, [facility] [address] [id number] [address] [place] [address], [place] [address] Oct, [facility] [address] [id number] [address] [place] [address], [place] [address] Oct, [facility] [address] [id number] [address] [place] [address], [place] [address] Oct, [facility] [address] [id number] [address] [place] [address], [place] [address] Oct, [facility] [address] [id number] [address] [place] [address], [place] [address] Oct, [facility] [address] [id number] [address] [place] [address], [place] [address] Sep, [facility] [address] [id number] [facility] [place] [address] Sep, [facility] [address] [id number] [address] [place] [address], [place] [address] Sep, [facility] [address] [address] [id number] [address] [place] [address], [place] [address] Sep, [facility] [address] [id number] [address] [place] [address], [place] [address] Sep, [facility] [address] [id number] [address] [place] [address], [place] [address] Sep, [facility] [address] [id number] [address] [place] [address], [place] [address] Sep, [facility] [address] [id number] [address] [place] [address], [place] [address] Sep, [facility] [address] [id number] [address] [place] [address], [place] [address] Sep, [facility] [address] [id number] [address] [place] [address], [place] [address] Sep, [facility] [address] [id number] [address] [place] [address], [place] [address] Sep, [facility] [address] [id number] [address] [place] [address], [place] [address] Sep, [facility] [address] [id number] [address] [place] [address], [place] [address] Sep, [facility] [address] [id number] [address] [place] [address], [place] [address] Sep, [facility] [address] [id number] [address] [place] [address], [place] [address] Feb, [facility] [address] [id number] [address] [place] [address], [place] [address] Feb, [facility] [address] [id number] [address] [place] [address], [place] [address] July, [facility] [address] [facility] [id number] [address] [place] [phone] Apr, [facility] [address] [facility] [id number] [address] [place] [phone] Apr, [facility] [address] [facility] [id number] [address] [place] [phone] Apr, [facility] [address] [facility] [id number] [address] [place] [phone] Apr, IMMUNIZATIONS No Known Immunizations SOCIAL HISTORY Never Assessed REASON FOR VISIT PLAN OF CARE VITAL SIGNS MEDICATIONS Unknown Medications RESULTS No Results PROCEDURES Procedure Date Ordered Result Body Site ASSAY OF DIGOXIN May 06, 2014 BASIC METABOLIC PANEL May 06, 2014 VENIPUNCT, ROUTINE* May 06, 2014 INSTRUCTIONS MEDICATIONS ADMINISTERED No Known Medications [...] placed and removed [facility] a fter Intubation 2017 Surgical History heart surgery 2018 Surgical History heart surgery 03/02-03/03/18 Hospitalization History ICU for Afib 09/2013 Hospitalization History Admitted to Transferred to [facility] ICU/ Rehab 03/2017 Hospitalization History Coded, Defribrillated and ET tube placed for ventillation and transferred to [facility] 03/2017 Hospitalization History surgery 09/29/2017 Hospitalization History heart surgery 03/02-03/03/18
--- OUTSIDE RECORDS SUMMARY | 2019-10-28 10:00 | XMS REPORT ---
Author Author Je Farrell Doctor Organization [facility] Address Unknown Phone Unavailable Care Team Providers Care Wharf Helper Name Role Phone Migration, Doctor Unavailable Unavailable PROBLEMS Type Condition ICD9-CM Code [id number] Code Onset Dates Condition S tatus SNOMED Code Problem Anoxic brain injury G93.1 Active 153528817 Problem Cardiomyopathy I42.9 Active 08377 001 Problem detention (current) use of anticoagulants Z79.01 Active 508537603 Problem Adjustment disorder with depressed mood F43.21 Active 10671765 Problem History of MO (myocardial infarction) I25.2 Active 313806223 Problem Chronic atrial fibrillation I48.2 Ac tive 440172183 Problem Non-ischemic cardiomyopathy I42.8 Ac tive 64711353 Problem History of cardiac arrest Z86.74 Acti ve 617242742 Problem Cardiac defibrillator in place Z95.810 Active 174962885 ALLERGIES No Information ENCOUNTERS Encounter Location Date Diagnosis [facility] [address] [facility] [id number] [address] [place] [address] [id number] Sep, [facility] [address] [facility] [id number] [address] [place] [address] [id number] Aug, Caries K02.9 [facility] [address] [id number] [address] [place] [address] [phone] July, Caries K02.9 [facility] [address] [id number] [address] [place] [address] [id number] July, Dental examination Z01.20 [facility] [address] [id number] [address] [place] [address] [id number] July, Caries K02.9 [facility] [address] [id number] [address] [place] [phone] Jun, [facility] [address] [id number] [address] [place] [address] [id number] Jun, Caries K02.9 [facility] [address] [facility] [id number] [address] [place] [phone] Jun, Chronic atrial fibrillation I48.2 ; 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 ; Cardiomyopathy I42.9 and Cardiac defibrillator in place Z95.810 [facility] [address] [facility] [id number] [place] [address] [id number] May, Caries K02.9 [facility] [address] [facility] [id number] [address] [place] [phone] Apr, History of MO (myocardial in farction) I25.2 and SOB (shortness of breath) R06.02 [facility] [address] [facility] [id number] [address] [place] [phone] Apr, [facility] [address] [facility] [id number] [address] [place] [phone] Apr, [facility] [address] [place] [id number] [place] [phone] Apr, Canker sore K12.0 [facility] [address] [place] [address] [phone] Apr, Dental examination Z01.20 [facility] [address] [place] [address] [phone] Mar, Caries K02.9 [facility] [address] [id number] [address] [place] [phone] Feb, Surgery follow-up Z09 [facility] [address] [id number] [place] [address] [id number] Feb, Caries K02.9 [facility] [address] [facility] [id number] [place] [address] [id number] Jan, Caries K02.9 [facility] [address] [facility] [id number] [address] [place] [phone] Oct, Foreign body in subcutaneous tissue T14.8XXA [facility] [address] [id number] [address] [place] [phone] Sep, Chronic atrial fibrillation I48.2 ; Non-ischemic cardiomyopathy I42.8 ; Anoxic brain injury G93.1 and Adjustment disorder with depressed mood F43.21 [facility] [address] [id number] [address] [place] [phone] Aug, [facility] [address] [id number] [address] [place] [phone] July, [facility] [address] [id number] [address] [place] [phone] July, [facility] [address] [id number] [address] [place] [phone] Jun, Adjustment disorder with dep ressed mood F43.21 [facility] [address] [id number] [address] [place] [phone] Jun, [facility] [address] [id number] [address] [place] [phone] Jun, [facility] [address] [facility] [id number] [address] [place] [phone] May, [facility] [address] [id number] [address] [place] [phone] May, [facility] [address] [facility] [id number] [address] [place] [phone] May, [facility] [address] [id number] [address] [place] [phone] May, [facility] [address] [facility] [id number] [address] [place] [phone] May, History of cardiac arrest Z8 6.74 ; Cardiac defibrillator in place Z95.810 ; Chronic atrial fibrillation I48.2 and Current moderate episode of major depressive disorder without prior episode F32.1 [facility] [address] [facility] [id number] [address] [place] [phone] May, [facility] [address] [facility] [id number] [address] [place] [phone] Mar, 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 [facility] [address] [facility] [id number] [address] [place] [phone] Mar, [facility] [address] [facility] [id number] [address] [place] [phone] Mar, 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 [facility] [address] [facility] [id number] [address] [place] [address] Feb, Afib I48.91 [facility] [address] [facility] [id number] [address] [place] [phone] Feb, 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 [facility] [address] [facility] [id number] [address] [place] [phone] Jan, Other viral agents as the ca use of diseases classified elsewhere B97.89 ; Acute upper respiratory infection, unspecified J06.9 and Body aches R52 [place] [address] [facility] [id number] [address] [place] [id number] Jan, Afib I48.91 [facility] [address] [facility] [id number] [address] [place] [phone] Jan, Afib I48.91 and 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 worker (c urrent) use of anticoagulants Z79.01 [facility] [address] [facility] [id number] [address] [place] [address] Dec, Afib I48.91 [place] [address] [facility] [id number] [address] [place] [phone] Dec, Chronic atrial fibrillation I48.2 [place] [address] [facility] [id number] [address] [place] [address] Nov, Hypertension I10 [place] [address] [facility] [id number] [address] [place] [phone] Oct, Chronic atrial fibrillation I48.2 [place] [address] [id number] [address] [place] [phone] Oct, detention (current) use of a nticoagulants Z79.01 [place] [address] [id number] [address] [place] [phone] Oct, Chronic atrial fibrillation I48.2 [place] [address] [id number] [address] [place] [address] Oct, Chronic atrial fibrillation I48.2 [place] [address] [id number] [address] [place] [phone] Sep, 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 ; Hypertension I10 ; Cardiomyopathy I42.9 and Afib I48.91 [place] [address] [facility] [id number] [address] [place] [address] Sep, detention (current) use of a nticoagulants Z79.01 ; Hypertension I10 ; Cardiomyopathy I42.9 and Afib I48.91 [place] [address] [id number] [address] [place] [phone] Aug, detention (current) use of a nticoagulants Z79.01 [place] [address] [id number] [address] [place] [phone] Aug, 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 [place] [address] [id number] [address] [place] [phone] Aug, detention (current) use of a nticoagulants Z79.01 [place] [address] [facility] [id number] [address] [place] [phone] July, detention (current) use of a nticoagulants Z79.01 [place] [address] [id number] [address] [place] [phone] Jun, 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 [place] [address] [id number] [address] [place] [phone] Jun, 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 [place] [address] [id number] [address] [place] [address] May, Chronic atrial fibrillation I48.2 [place] [address] [id number] [address] [place] [phone] 17 May, 2016 [place] [address] [id number] [address] [place] [phone] May, 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 [place] [address] [facility] [id number] [address] [place] [phone] 10 May, 2016 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 [place] [address] [id number] [address] [place] [address] May, Afib I48.91 ; Non-ischemic c ardiomyopathy I42.8 ; Hypotension, unspecified hypotension type I95.9 and Heart palpitations R00.2 [place] [address] [id number] [address] [place] [phone] 16 Apr, 2016 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 [place] [address] [id number] [address] [place] [address] Apr, 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 [place] [address] [facility] [id number] [address] [place] [address] Mar, detention (current) use of a nticoagulants Z79.01 [place] [address] [facility] [id number] [address] [place] [phone] Feb, 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 [facility] [address] [facility] [id number] [address] [place] [address] Feb, detention (current) use of a nticoagulants Z79.01 [facility] [address] [facility] [id number] [address] [place] [phone] Jan, detention (current) use of a nticoagulants Z79.01 [facility] [address] [facility] [id number] [address] [place] [phone] Jan, detention (current) use of a nticoagulants Z79.01 [facility] [address] [facility] [id number] [address] [place] [address] Dec, detention (current) use of a nticoagulants Z79.01 [place] [address] [facility] [id number] [address] [place] [address] Dec, detention (current) use of a nticoagulants Z79.01 [facility] [address] [facility] [id number] [address] [place] [phone] Oct, 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 [facility] [address] [facility] [id number] [address] [place] [address] Oct, 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 [facility] [address] [facility] [id number] [address] [place] [address] Oct, Afib I48.91 ; Cardiomyopathy I42.9 ; Palpitations R00.2 and Non- rheumatic tricuspid valve insufficiency I36.1 [facility] [address] [facility] [id number] [address] [place] [address] Sep, Chronic atrial fibrillation I48.2 ; detention (current) use of anticoagulants Z79.01 ; Cardiomyopathy I42.9 and Hypertension I10 [facility] [address] [facility] [id number] [address] [place] [phone] 04 [place], 2016 Allergic rhinitis, unspecifi ed allergic rhinitis type J30.9 [place] [address] [id number] [address] [place] [address] Aug, detention (current) use of a nticoagulants Z79.01 [place] [address] [id number] [address] [place] [address] Jun, detention (current) use of a nticoagulants Z79.01 [place] [address] [id number] [address] [place] [address] Jun, detention (current) use of a nticoagulants Z79.01 [place] [address] [id number] [address] [place] [phone] Jun, 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 [place] [address] [facility] [id number] [address] [place] [address] Jun, [place] [address] [id number] [address] [place] [address] May, Encounter for long-term (cur rent) use of anticoagulants V58.61 [place] [address] [id number] [address] [place] [address] May, Encounter for long-term (cur rent) use of anticoagulants V58.61 [place] [address] [id number] [address] [place] [address] May, Encounter for long-term (cur rent) use of anticoagulants V58.61 [place] [address] [id number] [address] [place] [address] Apr, Encounter for long-term (cur rent) use of anticoagulants V58.61 [place] [address] [facility] [id number] [address] [place] [address] Apr, 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 [place] [address] [id number] [address] [place] [address] Apr, Afib I48.91 ; Hypertension I 10 ; Cardiomyopathy I42.9 and Palpitations R00.2 [place] [address] [facility] [id number] [address] [place] [address] Mar, detention (current) use of a nticoagulants Z79.01 [place] [address] [facility] [id number] [address] [place] [address] Mar, Encounter for long-term (cur rent) use of anticoagulants V58.61 [place] [address] [facility] [id number] [address] [place] [address] Mar, Encounter for long-term (cur rent) use of anticoagulants V58.61 [place] [address] [facility] [id number] [address] [place] [address] Mar, 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 and Encounter for therapeutic drug level monitoring Z51.81 [place] [address] [facility] [id number] [address] [place] [address] Feb, detention (current) use of a nticoagulants Z79.01 and Encounter for therapeutic drug level monitoring Z51.81 [place] [address] [facility] [id number] [address] [place] [address] Feb, Encounter for long-term (cur rent) use of anticoagulants V58.61 [place] [address] [facility] [id number] [address] [place] [address] Feb, [place] [address] [facility] [id number] [address] [place] [address] Feb, Encounter for long-term (cur rent) use of anticoagulants V58.61 [place] [address] [facility] [id number] [address] [place] [address] Feb, Encounter for therapeutic dr ug level monitoring Z51.81 [place] [address] [facility] [id number] [address] [place] [address] Jan, [facility] [address] [id number] [address] [place] [address] Dec, Encounter for long-term (cur rent) use of anticoagulants V58.61 and Atrial fibrillation 427.31 [place] [address] [id number] [address] [place] [address] Dec, Chest wall muscle strain S29 .011A [place] [address] [id number] [address] [place] [address] Nov, Encounter for long-term (cur rent) use of anticoagulants V58.61 and Atrial fibrillation 427.31 [place] [address] [id number] [address] [place] [address] Nov, Atrial fibrillation 427.31 [place] [address] [id number] [address] [place] [address] Nov, [place] [address] [id number] [address] [place] [address] Nov, Atrial fibrillation 427.31 [place] [address] [id number] [address] [place] [address] Nov, Atrial fibrillation 427.31 [place] [address] [id number] [address] [place] [phone] Oct, Encounter for long-term (cur rent) use of anticoagulants V58.61 [place] [address] [id number] [address] [place] [address] Sep, Encounter for long-term (cur rent) use of anticoagulants V58.61 [place] [address] [id number] [address] [place] [phone] Aug, Encounter for long-term (cur rent) use of anticoagulants V58.61 [place] [address] [id number] [address] [place] [address] July, [place] [address] [id number] [address] [place] [address] July, [facility] [address] [id number] [address] [place] [address], [place] [address] July, [facility] [address] [id number] [address] [place] [address], [place] [address] Jun, [facility] [address] [id number] [address] [place] [address], [place] [address] Jun, [facility] [address] [id number] [address] [place] [phone] May, [facility] [address] [id number] [address] [place] [address], [place] [address] May, [facility] [address] [id number] [address] [place] [address] May, [facility] [address] [id number] [address] [place] [address], [place] [address] Apr, [facility] [address] [id number] [address] [place] [phone] Apr, [facility] [address] [id number] [address] [place] [address], [place] [address] Apr, [facility] [address] [id number] [address] [place] [address], [place] [address] Apr, [facility] [address] [id number] [address] [place] [address], [place] [address] Apr, [facility] [address] [id number] [address] [place] [address] Apr, [facility] [address] [id number] [address] [place] [address], [place] [address] Apr, [facility] [address] [id number] [address] [place] [address] Mar, [facility] [address] [id number] [address] [place] [phone] Mar, [facility] [address] [id number] [address] [place] [address], [place] [address] Mar, [facility] [address] [id number] [address] [place] [address], [place] [address] Mar, [facility] [address] [id number] [address] [place] [address], [place] [address] Mar, [facility] [address] [id number] [address] [place] [address], [place] [address] Mar, [facility] [address] [id number] [address] [place] [address], [place] [address] Mar, [facility] [address] [id number] [address] [place] [address], [place] [address] Mar, [facility] [address] [id number] [address] [place] [address], [place] [address] Feb, [facility] [address] [id number] [address] [place] [address], [place] [address] Feb, [facility] [address] [id number] [address] [place] [address], [place] [address] Feb, [facility] [address] [id number] [address] [place] [address], [place] [address] Feb, [facility] [address] [id number] [address] [place] [address], [place] [address] Feb, [facility] [address] [id number] [address] [place] [address], [place] [address] Feb, [facility] [address] [id number] [address] [place] [address], [place] [address] Jan, [facility] [address] [id number] [address] [place] [address], [place] [address] Jan, [facility] [address] [id number] [address] [place] [address], [place] [address] Jan, [facility] [address] [id number] [address] [place] [address], [place] [address] Jan, [facility] [address] [id number] [address] [place] [address], [place] [address] Jan, [facility] [address] [id number] [address] [place] [address], [place] [address] Jan, [facility] [address] [id number] [address] [place] [address], [place] [address] Dec, [facility] [address] [id number] [address] [place] [address], [place] [address] Dec, [facility] [address] [id number] [address] [place] [address], [place] [address] Dec, [facility] [address] [id number] [address] [place] [address], [place] [address] Dec, [facility] [address] [id number] [address] [place] [address], [place] [address] Nov, [facility] [address] [id number] [address] [place] [address], [place] [address] Nov, [facility] [address] [id number] [address] [place] [address], [place] [address] Oct, [facility] [address] [id number] [address] [place] [address], [place] [address] Oct, [facility] [address] [id number] [address] [place] [address], [place] [address] Oct, [facility] [address] [id number] [address] [place] [address], [place] [address] Oct, [facility] [address] [id number] [address] [place] [address], [place] [address] Oct, [facility] [address] [id number] [address] [place] [address], [place] [address] Oct, [facility] [address] [id number] [address] [place] [address], [place] [address] Sep, [facility] [address] [id number] [facility] [place] [address] Sep, [facility] [address] [id number] [address] [place] [address], [place] [address] Sep, [facility] [address] [id number] [address] [place] [address], [place] [address] Sep, [facility] [address] [id number] [address] [place] [address], [place] [address] Sep, [facility] [address] [id number] [address] [place] [address], [place] [address] Sep, [facility] [address] [id number] [address] [place] [address], [place] [address] Sep, [facility] [address] [id number] [address] [place] [address], [place] [address] Sep, [facility] [address] [id number] [address] [place] [address], [place] [address] Sep, [facility] [address] [id number] [address] [place] [address], [place] [id number] Sep, [facility] [address] [id number] [address] [place] [address], [place] [address] Sep, [facility] [address] [id number] [address] [place] [address], [place] [address] Sep, [facility] [address] [id number] [address] [place] [address], [place] [address] Sep, [facility] [address] [id number] [address] [place] [address], [place] [address] Sep, [facility] [address] [id number] [address] [place] [address], [place] [address] Feb, [facility] [address] [id number] [address] [place] [address], [place] [address] Feb, [facility] [address] [id number] [address] [place] [address], [place] [address] July, [facility] [address] [facility] [id number] [address] [place] [phone] Apr, [facility] [address] [facility] [id number] [address] [place] [phone] Apr, [facility] [address] [facility] [id number] [address] [place] [phone] Apr, [facility] [address] [facility] [id number] [address] [place] [id number] Apr, IMMUNIZATIONS No Known Immunizations SOCIAL HISTORY Never Assessed REASON FOR VISIT PLAN OF CARE VITAL SIGNS MEDICATIONS Unknown Medications RESULTS No Results PROCEDURES Procedure Date Ordered Result Body Site PROTHROMBIN TIME May 19, 2014 VENIPUNCT, ROUTINE* May 19, 2014 INSTRUCTIONS MEDICATIONS ADMINISTERED No Known Medications MEDICAL (GENERAL) HISTORY Type Description Date Medical History Atrial fibrillation Medical History hx of c. diff Medical History Stress test performed; EF 25% Last test 2015 was at 60% Medical History Palpitations Medical History Cardiac Arrest with CPR and Intubation with ET tube and transferred to [facility] Trach placed 03/2017 due to A Fib resulting in anoxic brain injury and memory loss Medical History 03/02-03/03/18 heart surgery Surgical History Defibrillation placed 2017 Surgical History Trach/PEG Tube placed and removed [facility] a fter Intubation 2017 Surgical History heart surgery 2018 Surgical History heart surgery 03/02-03/03/18 Hospitalization History ICU for Afib 09/2013 Hospitalization History Admitted to Transferred to [facility] ICU/ Rehab 03/2017 Hospitalization History Coded, Defribrillated and ET tube placed for ventillation and transferred to [facility] 03/2017 Hospitalization History surgery 09/29/2017 Hospitalization History heart surgery 03/02-03/03/18
--- OUTSIDE RECORDS SUMMARY | 2019-10-28 10:01 | XMS REPORT ---
Author Author Je Farrell Doctor Organization [facility] Address Unknown Phone Unavailable Care Team Providers Care Refractive Surgeon Name Role Phone Migration, Doctor Unavailable Unavailable PROBLEMS Type Condition ICD9-CM Code CCM33-NC Code Onset Dates Condition S tatus SNOMED Code Problem Anoxic brain injury G93.1 Active 448250366 Problem Cardiomyopathy I42.9 Active 28402 001 Problem senior care (current) use of anticoagulants Z79.01 Active 484388423 Problem Adjustment disorder with depressed mood F43.21 Active 94128297 Problem History of [place] (myocardial infarction) I25.2 Active 603075976 Problem Chronic atrial fibrillation I48.2 Ac tive 199638602 Problem Non-ischemic cardiomyopathy I42.8 Ac tive 94729625 Problem History of cardiac arrest Z86.74 Acti ve 497006270 Problem Cardiac defibrillator in place Z95.810 Active [id number] ALLERGIES No Information ENCOUNTERS Encounter Location Date Diagnosis [facility] [id number] [place] [address] [id number] Jun, [facility] [address] [id number] [address] [place] [address] Jun, Chronic atrial fibrillation I48.2 ; senior care (current) use of anticoagulants Z79.01 ; Cardiomyopathy I42.9 and Cardiac defibrillator in place Z95.810 [facility] [address] [facility] [id number] [address] [place] [address] [id number] May, Caries K02.9 [facility] [address] [id number] [address] [place] [address] Apr, History of [place] (myocardial in farction) I25.2 and SOB (shortness of breath) R06.02 [facility] [address] [id number] [address] [place] [address] Apr, [facility] [address] [id number] [address] [place] [address] Apr, [facility] [address] [facility] [id number] [address] [place] [address] Apr, Paresh campo K12.0 [facility] [address] [id number] [address] [place] [address] [phone] Apr, Dental examination Z01.20 [facility] [address] [id number] [address] [place] [address] [id number] Mar, Caries K02.9 [facility] [address] [facility] [id number] [address] [place] [address] Feb, Surgery follow-up Z09 [facility] [address] [id number] [address] [place] [address] [id number] Feb, Caries K02.9 [facility] [address] [facility] [id number] [place] [address] [id number] Jan, Caries K02.9 [facility] [address] [facility] [id number] [address] [place] [address] Oct, Foreign body in subcutaneous tissue T14.8XXA [facility] [address] [address] Sep, Chronic atrial fibrillation I48.2 ; Non-ischemic cardiomyopathy I42.8 ; Anoxic brain injury G93.1 and Adjustment disorder with depressed mood F43.21 [facility] [address] [id number] [address] [place] [address] Aug, [facility] [address] [facility] [id number] [address] [place] [address] July, [facility] [address] [address] July, [facility] [address] [id number] [address] [place] [address] Jun, Adjustment disorder with dep ressed mood F43.21 [facility] [address] [id number] [address] [place] [address] Jun, [facility] [address] [id number] [address] [place] [address] Jun, [facility] [address] [id number] [address] [place] [address] May, [facility] [address] [id number] [address] [place] [address] May, [facility] [address] [id number] [address] [place] [address] May, [facility] [address] [id number] [address] [place] [address] May, [facility] [address] [id number] [address] [place] [address] May, History of cardiac arrest Z8 6.74 ; Cardiac defibrillator in place Z95.810 ; Chronic atrial fibrillation I48.2 and Current moderate episode of major depressive disorder without prior episode F32.1 [facility] [address] [id number] [address] [place] [address] May, [facility] [address] [id number] [address] [place] [address] Mar, 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 [facility] [address] [id number] [address] [place] [address] Mar, [facility] [address] [id number] [address] [place] [address] Mar, 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 [facility] [address] [id number] [address] [place] [address] Feb, Afib I48.91 [facility] [address] [id number] [address] [place] [address] Feb, 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 [facility] [address] [id number] [address] [place] [address] Jan, Other viral agents as the ca use of diseases classified elsewhere B97.89 ; Acute upper respiratory infection, unspecified J06.9 and Body aches R52 [facility] [address] [facility] [id number] [address] [place] [address] Jan, Afib I48.91 [facility] [address] [id number] [address] [place] [address] Jan, Afib I48.91 and senior care (c urrent) use of anticoagulants Z79.01 [facility] [address] [id number] [address] [place] [address] Dec, Afib I48.91 [facility] [address] [id number] [address] [place] [address] Dec, Chronic atrial fibrillation I48.2 [facility] [address] [id number] [address] [place] [address] Nov, Hypertension I10 [place] [address] [id number] [address] [place] [address] Oct, Chronic atrial fibrillation I48.2 [facility] [address] [facility] [id number] [address] [place] [address] Oct, 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 [facility] [address] [id number] [address] [place] [address] Oct, Chronic atrial fibrillation I48.2 [place] [address] [id number] [address] [place] [address] Oct, Chronic atrial fibrillation I48.2 [facility] [address] [facility] [id number] [address] [place] [address] Sep, senior care (current) use of a nticoagulants Z79.01 ; Hypertension I10 ; Cardiomyopathy I42.9 and Afib I48.91 [facility] [address] [id number] [address] [place] [address] Sep, senior care (current) use of a nticoagulants Z79.01 ; Hypertension I10 ; Cardiomyopathy I42.9 and Afib I48.91 [facility] [address] [id number] [address] [place] [address] Aug, 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 [facility] [address] [id number] [address] [place] [address] Aug, 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 [facility] [address] [id number] [address] [place] [address] Aug, senior care (current) use of a nticoagulants Z79.01 [facility] [address] [id number] [address] [place] [address] July, 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 [facility] [address] [id number] [address] [place] [address] Jun, senior care (current) use of a nticoagulants Z79.01 [facility] [address] [id number] [address] [place] [address] Jun, senior care (current) use of a nticoagulants Z79.01 [facility] [address] [id number] [address] [place] [address] May, Chronic atrial fibrillation I48.2 [facility] [address] [id number] [address] [place] [address] 17 May, 2016 [facility] [address] [id number] [address] [place] [address] May, 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 [facility] [address] [id number] [address] [place] [address] 10 May, 2016 senior care (current) use of a nticoagulants Z79.01 [facility] [address] [id number] [address] [place] [address] 10 May, 2016 Afib I48.91 ; Non-ischemic c ardiomyopathy I42.8 ; Hypotension, unspecified hypotension type I95.9 and Heart palpitations R00.2 [facility] [address] [id number] [address] [place] [address] 16 Apr, 2016 senior care (current) use of a nticoagulants Z79.01 [place] [address] [id number] [address] [place] [address] Apr, 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 [place] [address] [id number] [address] [place] [address] Mar, 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 [facility] [address] [id number] [address] [place] [address] Feb, senior care (current) use of a nticoagulants Z79.01 [place] [address] [id number] [address] [place] [address] Feb, 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 [place] [address] [id number] [address] [place] [address] Jan, 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 [place] [address] [id number] [address] [place] [address] Jan, 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 [facility] [address] [id number] [address] [place] [address] Dec, senior care (current) use of a nticoagulants Z79.01 [facility] [address] [id number] [address] [place] [address] Dec, senior care (current) use of a nticoagulants Z79.01 [facility] [address] [facility] [id number] [address] [place] [address] Oct, 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 [facility] [address] [facility] [id number] [address] [place] [address] Oct, senior care (current) use of a nticoagulants Z79.01 [place] [address] [facility] [id number] [address] [place] [address] Oct, Afib I48.91 ; Cardiomyopathy I42.9 ; Palpitations R00.2 and Non- rheumatic tricuspid valve insufficiency I36.1 [place] [address] [facility] [id number] [address] [place] [address] Sep, Chronic atrial fibrillation I48.2 ; senior care (current) use of anticoagulants Z79.01 ; Cardiomyopathy I42.9 and Hypertension I10 [facility] [address] [facility] [id number] [address] [place] [address] Aug, Allergic rhinitis, unspecifi ed allergic rhinitis type J30.9 [facility] [address] [facility] [id number] [address] [place] [address] Aug, senior care (current) use of a nticoagulants Z79.01 [facility] [address] [facility] [id number] [address] [place] [address] Jun, 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 [facility] [address] [facility] [id number] [address] [place] [address] Jun, senior care (current) use of a nticoagulants Z79.01 [facility] [address] [facility] [id number] [address] [place] [address] Jun, senior care (current) use of a nticoagulants Z79.01 [facility] [address] [facility] [id number] [address] [place] [address] Jun, [place] [address] [facility] [id number] [address] [place] [address] May, Encounter for long-term (cur rent) use of anticoagulants V58.61 [place] [address] [facility] [id number] [address] [place] [address] May, Encounter for long-term (cur rent) use of anticoagulants V58.61 [place] [address] [facility] [id number] [address] [place] [address] May, Encounter for long-term (cur rent) use of anticoagulants V58.61 [place] [address] [facility] [id number] [address] [place] [address] Apr, Encounter for long-term (cur rent) use of anticoagulants V58.61 [place] [address] [place] [id number] [address] [place] [address] Apr, senior care (current) use of a nticoagulants Z79.01 [place] [address] [place] [id number] [address] [place] [address] Apr, Afib I48.91 ; Hypertension I 10 ; Cardiomyopathy I42.9 and Palpitations R00.2 [place] [address] [place] [id number] [address] [place] [address] Mar, senior care (current) use of a nticoagulants Z79.01 [place] [address] [place] [id number] [address] [place] [address] Mar, Encounter for long-term (cur rent) use of anticoagulants V58.61 [place] [address] [place] [id number] [address] [place] [address] Mar, Encounter for long-term (cur rent) use of anticoagulants V58.61 [place] [address] [place] [id number] [address] [place] [address] Mar, 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 and Encounter for therapeutic drug level monitoring Z51.81 [place] [address] [id number] [address] [place] [address] Feb, senior care (current) use of a nticoagulants Z79.01 and Encounter for therapeutic drug level monitoring Z51.81 [place] [address] [id number] [address] [place] [address] Feb, Encounter for long-term (cur rent) use of anticoagulants V58.61 [place] [address] [id number] [address] [place] [address] Feb, [place] [address] [id number] [address] [place] [address] Feb, Encounter for long-term (cur rent) use of anticoagulants V58.61 [place] [address] [id number] [address] [place] [address] Feb, Encounter for therapeutic dr ug level monitoring Z51.81 [place] [address] [id number] [address] [place] [address] Jan, [place] [address] [id number] [address] [place] [address] Dec, Encounter for long-term (cur rent) use of anticoagulants V58.61 and Atrial fibrillation 427.31 [place] [address] [id number] [address] [place] [address] Dec, Chest wall muscle strain S29 .011A [place] [address] [id number] [address] [place] [address] Nov, Encounter for long-term (cur rent) use of anticoagulants V58.61 and Atrial fibrillation 427.31 [place] [address] [id number] [address] [place] [address] Nov, Atrial fibrillation 427.31 [place] [address] [id number] [address] [place] [address] Nov, [facility] [address] [id number] [address] [place] [address] Nov, Atrial fibrillation 427.31 [facility] [address] [id number] [address] [place] [address] 10 Nov, 2014 Atrial fibrillation 427.31 [facility] [address] [id number] [address] [place] [address] Oct, Encounter for long-term (cur rent) use of anticoagulants V58.61 [facility] [address] [id number] [address] [place] [address] Sep, Encounter for long-term (cur rent) use of anticoagulants V58.61 [facility] [address] [id number] [address] [place] [address] Aug, Encounter for long-term (cur rent) use of anticoagulants V58.61 [facility] [address] [id number] [address] [place] [address] July, [facility] [address] [id number] [address] [place] [address] July, [facility] [address] [id number] [address] [place] [address] July, [facility] [address] [id number] [address] [place] [address] Jun, [facility] [address] [id number] [address] [place] [address] Jun, [facility] [address] [id number] [address] [place] [address] May, [facility] [address] [id number] [address] [place] [address] May, [facility] [address] [id number] [address] [place] [address] May, [facility] [address] [id number] [address] [place] [address], [place] [address] 18 Apr, 2014 [facility] [address] [id number] [address] [place] [address], [place] [address] Apr, 2014 [facility] [address] [id number] [address] [place] [address], [place] [address] 17 Apr, 2014 [facility] [address] [id number] [address] [place] [address], [place] [address] Apr, 2014 [facility] [address] [id number] [address] [place] [address], [place] [address] Apr, 2014 [facility] [address] [id number] [address] [place] [address], [place] [address] Apr, [facility] [address] [id number] [address] [place] [address], [place] [address] Apr, [facility] [address] [id number] [address] [place] [address], [place] [address] Mar, [facility] [address] [id number] [address] [place] [address], [place] [address] Mar, [facility] [address] [id number] [address] [place] [address], [place] [address] Mar, [facility] [address] [id number] [address] [place] [address], [place] [address] Mar, [facility] [address] [id number] [address] [place] [address], [place] [address] Mar, [facility] [address] [id number] [address] [place] [address], [place] [address] Mar, [facility] [address] [id number] [address] [place] [address], [place] [address] Mar, [facility] [address] [id number] [address] [place] [address], [place] [address] Mar, [facility] [address] [id number] [address] [place] [address], [place] [address] Feb, [facility] [address] [id number] [address] [place] [address], [place] [address] Feb, [facility] [address] [id number] [address] [place] [address], [place] [address] Feb, [facility] [address] [id number] [address] [place] [address], [place] [address] Feb, [facility] [address] [id number] [address] [place] [address], [place] [address] Feb, [facility] [address] [id number] [address] [place] [address], [place] [address] Feb, [facility] [address] [id number] [address] [place] [address], [place] [address] Jan, [facility] [address] [id number] [address] [place] [address], [place] [address] Jan, [facility] [address] [id number] [address] [place] [address], [place] [address] Jan, [facility] [address] [id number] [address] [place] [address], [place] [address] Jan, [facility] [address] [id number] [address] [place] [address], [place] [address] Jan, [facility] [address] [id number] [address] [place] [id number] Jan, [facility] [address] [id number] [address] [place] [id number] Dec, [facility] [address] [id number] [address] [place] [address], [place] [address] Dec, [facility] [address] [id number] [address] [place] [address], [place] [address] Dec, [facility] [address] [id number] [address] [place] [address], [place] [address] Dec, [facility] [address] [id number] [address] [place] [address], [place] [address] Nov, [facility] [address] [id number] [address] [place] [address], [place] [address] Nov, [facility] [address] [id number] [address] [place] [address], [place] [address] Oct, [facility] [address] [id number] [address] [place] [address], [place] [address] Oct, [facility] [address] [id number] [address] [place] [address], [place] [address] Oct, [facility] [address] [id number] [address] [place] [address], [place] [address] Oct, [facility] [address] [id number] [address] [place] [address], [place] [address] Oct, [facility] [address] [id number] [address] [place] [address], [place] [address] Oct, [facility] [address] [id number] [address] [place] [address], [place] [address] Sep, [facility] [address] [id number] [address] [place] [address], [place] [address] Sep, [facility] [address] [id number] [address] [place] [address], [place] [address] Sep, [facility] [address] [id number] [address] [place] [address], [place] [address] Sep, [facility] [address] [id number] [address] [place] [address], [place] [address] Sep, [facility] [address] [id number] [address] [place] [address], [place] [address] Sep, [facility] [address] [id number] [address] [place] [address], [place] [address] Sep, [facility] [address] [id number] [address] [place] [address], [place] [address] Sep, [facility] [address] [id number] [address] [place] [id number] Sep, [facility] [facility] [address] [id number] [address] [place] [phone] Sep, [facility] [address] [id number] [address] [place] [phone] Sep, [facility] [address] [id number] [address] [place] [phone] Sep, [facility] [address] [id number] [address] [place] [phone] Sep, [facility] [address] [id number] [address] [place] [phone] Sep, [facility] [address] [id number] [address] [place] [phone] Feb, [facility] [address] [id number] [address] [place] [phone] Feb, [facility] [address] [id number] [address] [place] [phone] July, [facility] [address] [id number] [address] [place] [phone] Apr, [facility] [address] [id number] [address] [place] [phone] Apr, [facility] [address] [id number] [address] [place] [phone] Apr, [facility] [address] [id number] [address] [place] [phone] Apr, IMMUNIZATIONS No Known Immunizations SOCIAL HISTORY Never Assessed REASON FOR VISIT [place] [place] VITAL SIGNS MEDICATIONS Medication Instructions Dosage Frequency Start Date End Date Duration S tatus Metronidazole 500 mg 1 tablet by Oral route 2 times pe r day for 14 days Apr, Active Metoprolol Tartrate 50 mg take 1 tablet (50 mg) by oral route 2 times per day with meals Sep, Active Enalapril Maleate 2.5 mg take 1 tablet (2.5 mg) by ora l route once daily Mar, Active Coumadin 2 mg take 1 tablet (2 mg) by oral route once daily Sep, Active Clarithromycin 500 mg 1 tablet by Oral route 2 times p er day for 14 day(s) Apr, Active Cardizem CD 180 mg take 1 capsule by Oral route 1 [...] Intubation with ET tube and transferred to [facility] Trach placed 03/2017 due to A Fib resulting in anoxic brain injury and memory loss Medical History 03/02-03/03/18 heart surgery Surgical History Defibrillation placed 2017 Surgical History Trach/PEG Tube placed and removed [facility] a fter Intubation 2017 Surgical History heart surgery 2017 Surgical History heart surgery 03/02-03/03/18 Hospitalization History ICU for Afib 09/2013 Hospitalization History Admitted to Transferred to [facility] ICU/ Rehab 03/2017 Hospitalization History Coded, Defribrillated and ET tube placed for ventillation and transferred to [facility] 03/2017 Hospitalization History surgery 09/29/2017 Hospitalization History heart surgery 03/02-03/03/18
--- OUTSIDE RECORDS SUMMARY | 2019-10-28 10:04 | XMS REPORT | Continuity of Care Document ---
Demographics Preferred Language Unknown Marital Status Unknown Jain Affiliation Unknown Race Unknown Ethnic Group Unknown Author Organization Unknown Address Unknown Phone Unavailable Allergies Active Description Code Type Severity Reaction Onset Reported/Identified Relationship to Patient Clinical Status Yes penicillin V potassium Drug Allergy 07/21/2010 Yes penicillin V potassium Drug Allergy N/A N/A 07/21/2010 Yes Penicillins [id number] Drug Aller gy Unknown N/A 09/19/2013 Medications There is no data. 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 07/21/2010 BROOK WILSON MD 486 PNEUMONIA UNSPECIFIED 07/21/2010 BROOK WILSON MD 486 PNEUMONIA UNSPECIFIED 07/21/2010 486 PNEUMO NIGEL UNSPECIFIED 07/21/2010 ISABELLE FRANCIS DO K 486 PNEUMONIA UNSPECIFIED 07/21/2010 CHERI MESSINA MD 486 PNEUMONIA UNSPECIFIED 07/21/2010 MADL DIRECTOR OF ADULT EPILEPSY, KARI L 486 PNEUMONIA UNSPECIFIED 07/21/2010 MADL DIRECTOR OF ADULT EPILEPSY, KARI L 486 PNEUMONIA UNSPECIFIED 07/21/2010 MADL DIRECTOR OF ADULT EPILEPSY, KARI L 486 PNEUMONIA UNSPECIFIED 07/21/2010 ISABELLE FRANCIS DO K 486 PNEUMONIA UNSPECIFIED 07/21/2010 CHINA GOLDSTEIN MD 486 PNEUMONIA UNSPECIFIED 07/21/2010 MADL DIRECTOR OF ADULT EPILEPSY, KARI L 486 PNEUMONIA UNSPECIFIED 07/21/2010 MADL DIRECTOR OF ADULT EPILEPSY, KARI L 486 PNEUMONIA UNSPECIFIED 07/21/2010 MADL DIRECTOR OF ADULT EPILEPSY, KARI L 486 PNEUMONIA UNSPECIFIED 07/21/2010 MADL DIRECTOR OF ADULT EPILEPSY, KARI L 486 PNEUMONIA UNSPECIFIED 07/21/2010 MADL DIRECTOR OF ADULT EPILEPSY, KARI L 486 PNEUMONIA UNSPECIFIED 07/21/2010 CHINA GOLDSTEIN MD 486 PNEUMONIA UNSPECIFIED 07/21/2010 MADL DIRECTOR OF ADULT EPILEPSY, KARI L 486 PNEUMONIA UNSPECIFIED 04/17/2011 Ot 787.03 VOM ITING ALONE 04/17/2011 Ot 787.91 PEPITO RRHEA 08/17/2011 Ot 427.31 ATR IAL FIBRILLATION 08/17/2011 Ot 785.1 PALP ITATIONS 04/20/2012 BROKO WILSON MD 789.0 6 abdominal pain in the central upper belly (epigastric) 04/20/2012 BROOK WILSON MD 789.0 6 abdominal pain in the central upper belly (epigastric) 04/20/2012 789.06 abd ominal pain in the central upper belly (epigastric) 04/20/2012 ISABELLE FRANCIS DO 789.06 abdominal pain in the central upper belly (epigastric) 04/20/2012 SIDDHARTH SANTANA, CHERI Henning 789 .06 abdominal pain in the central upper belly (epigastric) 04/20/2012 MARJORIE DIRECTOR OF ADULT EPILEPSYWILFREDO HenningA L 789 .06 abdominal pain in the central upper belly (epigastric) 04/20/2012 ZAIRAL DIRECTOR OF ADULT EPILEPSY, KARI L 789 .06 abdominal pain in the central upper belly (epigastric) 04/20/2012 ZAIRAL DIRECTOR OF ADULT EPILEPSYWILFREDO HenningA L 789 .06 abdominal pain in the central upper belly (epigastric) 04/20/2012 ISABELLE FRANCIS DO 789.06 abdominal pain in the central upper belly (epigastric) 04/20/2012 CHINA GOLDSTEIN MD 789.06 abdominal pain in the central upper belly (epigastric) 04/20/2012 MARJORIE DIRECTOR OF ADULT EPILEPSYWILFREDO HenningA L 789 .06 abdominal pain in the central upper belly (epigastric) 04/20/2012 ZAIRAL DIRECTOR OF ADULT EPILEPSY, KARI L 789 .06 abdominal pain in the central upper belly (epigastric) 04/20/2012 WILFREDO AMADOR APRNA L 789 .06 abdominal pain in the central upper belly (epigastric) 04/20/2012 MADL DIRECTOR OF ADULT EPILEPSY, KARI L 789 .06 abdominal pain in the central upper belly (epigastric) 04/20/2012 MADL DIRECTOR OF ADULT EPILEPSY, KARI L 789 .06 abdominal pain in the central upper belly (epigastric) 04/20/2012 JEFFREY SANTANA, [place] 789.06 abdominal pain in the central upper belly (epigastric) 04/20/2012 MADL DIRECTOR OF ADULT EPILEPSY, KARI L 789 .06 abdominal pain in the central upper belly (epigastric) 05/10/2012 BROOK WILSON MD 427.3 1 ATRIAL FIBRILLATION 05/10/2012 BROOK WILSON MD 530.8 1 ESOPHAGEAL REFLUX 05/10/2012 BROOK WILSON MD 786.2 cough 05/10/2012 BROOK WILSON MD 787.9 1 diarrhea 05/10/2012 427.31 ATR IAL FIBRILLATION 05/10/2012 530.81 ESO PHAGEAL REFLUX 05/10/2012 786.2 cough 05/10/2012 787.91 pepito rrhea 05/10/2012 FRANCIS DO, ISABELLE K 427.31 ATRIAL FIBRILLATION 05/10/2012 FRANCIS DO, ISABELLE K 530.81 ESOPHAGEAL REFLUX 05/10/2012 FRANCIS , ISABELLE K 786.2 cough 05/10/2012 FRANCIS , ISABELLE K 787.91 diarrhea 05/10/2012 CHERI MESSINA MD N 427 .31 ATRIAL FIBRILLATION 05/10/2012 CHERI MESSINA MD N 530 .81 ESOPHAGEAL REFLUX 05/10/2012 CHERI MESSINA MD N 786 .2 cough 05/10/2012 CHERI MESSINA MD N 787 .91 diarrhea 05/10/2012 MADL DIRECTOR OF ADULT EPILEPSY, KARI L 427 .31 ATRIAL FIBRILLATION 05/10/2012 MADL DIRECTOR OF ADULT EPILEPSY, KARI L 530 .81 ESOPHAGEAL REFLUX 05/10/2012 MADL DIRECTOR OF ADULT EPILEPSY, KARI L 786 .2 cough 05/10/2012 MADL DIRECTOR OF ADULT EPILEPSY, KARI L 787 .91 diarrhea 05/10/2012 MADL DIRECTOR OF ADULT EPILEPSY, KARI L 427 .31 ATRIAL FIBRILLATION 05/10/2012 MADL DIRECTOR OF ADULT EPILEPSY, KARI L 530 .81 ESOPHAGEAL REFLUX 05/10/2012 MADL DIRECTOR OF ADULT EPILEPSY, KARI L 786 .2 cough 05/10/2012 MADL DIRECTOR OF ADULT EPILEPSY, KARI L 787 .91 diarrhea 05/10/2012 MADL DIRECTOR OF ADULT EPILEPSY, KARI L 427 .31 ATRIAL FIBRILLATION 05/10/2012 MADL DIRECTOR OF ADULT EPILEPSY, KARI L 530 .81 ESOPHAGEAL REFLUX 05/10/2012 MADL DIRECTOR OF ADULT EPILEPSY, KARI L 786 .2 cough 05/10/2012 MADL DIRECTOR OF ADULT EPILEPSY, KARI L 787 .91 diarrhea 05/10/2012 FRANCIS DO, ISABELLE K 427.31 ATRIAL FIBRILLATION 05/10/2012 FRANCIS DO, ISABELLE K 530.81 ESOPHAGEAL REFLUX 05/10/2012 FRANCIS DO, ISABELLE K 786.2 cough 05/10/2012 FRANCIS DO, ISABELLE K 787.91 diarrhea 05/10/2012 JEFFREY SANTANA, [place] 427.31 ATRIAL FIBRILLATION 05/10/2012 JEFFREY SANTANA, [place] 530.81 ESOPHAGEAL REFLUX 05/10/2012 JEFFREY SANTANA, BASHAR 786.2 cough 05/10/2012 JEFFREY SANTANA, BASHAR 787.91 diarrhea 05/10/2012 MADL DIRECTOR OF ADULT EPILEPSY, KARI L 427 .31 ATRIAL FIBRILLATION 05/10/2012 MADL DIRECTOR OF ADULT EPILEPSY, KARI L 530 .81 ESOPHAGEAL REFLUX 05/10/2012 MADL DIRECTOR OF ADULT EPILEPSY, KARI L 786 .2 cough 05/10/2012 MADL DIRECTOR OF ADULT EPILEPSY, KARI L 787 .91 diarrhea 05/10/2012 MADL DIRECTOR OF ADULT EPILEPSY, KARI L 427 .31 ATRIAL FIBRILLATION 05/10/2012 MADL DIRECTOR OF ADULT EPILEPSY, KARI L 530 .81 ESOPHAGEAL REFLUX 05/10/2012 MADL DIRECTOR OF ADULT EPILEPSY, KARI L 786 .2 cough 05/10/2012 MADL DIRECTOR OF ADULT EPILEPSY, KARI L 787 .91 diarrhea 05/10/2012 MADL DIRECTOR OF ADULT EPILEPSY, KARI L 427 .31 ATRIAL FIBRILLATION 05/10/2012 MADL DIRECTOR OF ADULT EPILEPSY, KARI L 530 .81 ESOPHAGEAL REFLUX 05/10/2012 MADL DIRECTOR OF ADULT EPILEPSY, KARI L 786 .2 cough 05/10/2012 MADL DIRECTOR OF ADULT EPILEPSY, KARI L 787 .91 diarrhea 05/10/2012 MADL DIRECTOR OF ADULT EPILEPSY, KARI L 427 .31 ATRIAL FIBRILLATION 05/10/2012 MADL DIRECTOR OF ADULT EPILEPSY, KARI L 530 .81 ESOPHAGEAL REFLUX 05/10/2012 MADL DIRECTOR OF ADULT EPILEPSY, KARI L 786 .2 cough 05/10/2012 MADL DIRECTOR OF ADULT EPILEPSY, KARI L 787 .91 diarrhea 05/10/2012 MADL DIRECTOR OF ADULT EPILEPSY, KARI L 427 .31 ATRIAL FIBRILLATION 05/10/2012 MADL DIRECTOR OF ADULT EPILEPSY, KARI L 530 .81 ESOPHAGEAL REFLUX 05/10/2012 MADL DIRECTOR OF ADULT EPILEPSY, KARI L 786 .2 cough 05/10/2012 MADL DIRECTOR OF ADULT EPILEPSY, KARI L 787 .91 diarrhea 05/10/2012 JEFFREY SANTANA, [place] 427.31 ATRIAL FIBRILLATION 05/10/2012 JEFFREY SANTANA, BASHAR 530.81 ESOPHAGEAL REFLUX 05/10/2012 JEFFREY SANTANA, BASHAR 786.2 cough 05/10/2012 JEFFREY SANTANA, BASHAR 787.91 diarrhea 05/10/2012 MADL DIRECTOR OF ADULT EPILEPSY, KARI L 427 .31 ATRIAL FIBRILLATION 05/10/2012 MADL DIRECTOR OF ADULT EPILEPSY, KARI L 530 .81 ESOPHAGEAL REFLUX 05/10/2012 MADL DIRECTOR OF ADULT EPILEPSY, KARI L 786 .2 cough 05/10/2012 MADL DIRECTOR OF ADULT EPILEPSY, KARI L 787 .91 diarrhea 07/31/2012 008.8 MT ROENTERITIS, VIRAL 07/31/2012 ISABELLE FRANCIS DO K 008.8 GASTROENTERITIS, VIRAL 07/31/2012 CHERI MESSINA MD 008 .8 GASTROENTERITIS, VIRAL 07/31/2012 MADL DIRECTOR OF ADULT EPILEPSY, KARI L 008 .8 GASTROENTERITIS, VIRAL 07/31/2012 MADL DIRECTOR OF ADULT EPILEPSY, KARI L 008 .8 GASTROENTERITIS, VIRAL 07/31/2012 MADL DIRECTOR OF ADULT EPILEPSY, KARI L 008 .8 GASTROENTERITIS, VIRAL 07/31/2012 TITO MCGEE ISABELLE K 008.8 GASTROENTERITIS, VIRAL 07/31/2012 CHINA GOLDSTEIN MD 008.8 GASTROENTERITIS, VIRAL 07/31/2012 MADL DIRECTOR OF ADULT EPILEPSY, KARI L 008 .8 GASTROENTERITIS, VIRAL 07/31/2012 MADL DIRECTOR OF ADULT EPILEPSY, KARI L 008 .8 GASTROENTERITIS, VIRAL 07/31/2012 MADL DIRECTOR OF ADULT EPILEPSY, KARI L 008 .8 GASTROENTERITIS, VIRAL 07/31/2012 MADL DIRECTOR OF ADULT EPILEPSY, KARI L 008 .8 GASTROENTERITIS, VIRAL 07/31/2012 MADL DIRECTOR OF ADULT EPILEPSY, KARI L 008 .8 GASTROENTERITIS, VIRAL 07/31/2012 CHINA GOLDSTEIN MD 008.8 GASTROENTERITIS, VIRAL 07/31/2012 MADL DIRECTOR OF ADULT EPILEPSY, KARI L 008 .8 GASTROENTERITIS, VIRAL 03/16/2013 MARY FRANCIS DOA K 487.1 INFLUENZA WITH OTHER RESPIRATORY MANIFESTATIONS 03/16/2013 CHERI MESSINA MD N 487 .1 INFLUENZA WITH OTHER RESPIRATORY MANIFESTATIONS 03/16/2013 MADL DIRECTOR OF ADULT EPILEPSY, KARI L 487 .1 INFLUENZA WITH OTHER RESPIRATORY MANIFESTATIONS 03/16/2013 MADL DIRECTOR OF ADULT EPILEPSY, KARI L 487 .1 INFLUENZA WITH OTHER RESPIRATORY MANIFESTATIONS 03/16/2013 MADL DIRECTOR OF ADULT EPILEPSY, KARI L 487 .1 INFLUENZA WITH OTHER RESPIRATORY MANIFESTATIONS 03/16/2013 MARY FRANCIS DOA K 487.1 INFLUENZA WITH OTHER RESPIRATORY MANIFESTATIONS 03/16/2013 CHINA GOLDSTEIN MD 487.1 INFLUENZA WITH OTHER RESPIRATORY MANIFESTATIONS 03/16/2013 MADL DIRECTOR OF ADULT EPILEPSY, KARI L 487 .1 INFLUENZA WITH OTHER RESPIRATORY MANIFESTATIONS 03/16/2013 MADL DIRECTOR OF ADULT EPILEPSY, KARI L 487 .1 INFLUENZA WITH OTHER RESPIRATORY MANIFESTATIONS 03/16/2013 MADL DIRECTOR OF ADULT EPILEPSY, KARI L 487 .1 INFLUENZA WITH OTHER RESPIRATORY MANIFESTATIONS 03/16/2013 MADL DIRECTOR OF ADULT EPILEPSY, KARI L 487 .1 INFLUENZA WITH OTHER RESPIRATORY MANIFESTATIONS 03/16/2013 MADL DIRECTOR OF ADULT EPILEPSY, KARI L 487 .1 INFLUENZA WITH OTHER RESPIRATORY MANIFESTATIONS 03/16/2013 CHINA GOLDSTEIN MD 487.1 INFLUENZA WITH OTHER RESPIRATORY MANIFESTATIONS 03/16/2013 MADL DIRECTOR OF ADULT EPILEPSY, KARI L 487 .1 INFLUENZA WITH OTHER RESPIRATORY MANIFESTATIONS 09/19/2013 CHERI MESSINA MD N 789 .00 ABDOMINAL PAIN UNSPECIFIED SITE 09/19/2013 MADL DIRECTOR OF ADULT EPILEPSY, KARI L 789 .00 ABDOMINAL PAIN UNSPECIFIED SITE 09/19/2013 MADL DIRECTOR OF ADULT EPILEPSY, KARI L 789 .00 ABDOMINAL PAIN UNSPECIFIED SITE 09/19/2013 MADL DIRECTOR OF ADULT EPILEPSY, KARI L 789 .00 ABDOMINAL PAIN UNSPECIFIED SITE 09/19/2013 ISABELLE FRANCIS DO K 789.00 ABDOMINAL PAIN UNSPECIFIED SITE 09/19/2013 CHINA GOLDSTEIN MD 789.00 ABDOMINAL PAIN UNSPECIFIED SITE 09/19/2013 MADL DIRECTOR OF ADULT EPILEPSY, KARI L 789 .00 ABDOMINAL PAIN UNSPECIFIED SITE 09/19/2013 MADL DIRECTOR OF ADULT EPILEPSY, KARI L 789 .00 ABDOMINAL PAIN UNSPECIFIED SITE 09/19/2013 MADL DIRECTOR OF ADULT EPILEPSY, KARI L 789 .00 ABDOMINAL PAIN UNSPECIFIED SITE 09/19/2013 MADL DIRECTOR OF ADULT EPILEPSY, KARI L 789 .00 ABDOMINAL PAIN UNSPECIFIED SITE 09/19/2013 MADL DIRECTOR OF ADULT EPILEPSY, KARI L 789 .00 ABDOMINAL PAIN UNSPECIFIED SITE 09/19/2013 CHINA GOLDSTEIN MD 789.00 ABDOMINAL PAIN UNSPECIFIED SITE 09/19/2013 MADL DIRECTOR OF ADULT EPILEPSY, KARI L 789 .00 ABDOMINAL PAIN UNSPECIFIED SITE 09/25/2013 CHINA GOLDSTEIN MD Ot 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 31 ATRIAL FIBRILLATION 09/25/2013 CHINA GOLDSTEIN MD Ot 428. 0 CONGESTIVE HEART FAILURE NOS 09/25/2013 CHINA GOLDSTEIN MD Ot 428. 21 ACUTE SYSTOLIC HEART FAILURE 09/25/2013 CHINA GOLDSTEIN MD Ot 458. 29 OTHER IATROGENIC HYPOTENSION 09/25/2013 CHINA GOLDSTEIN MD Ot 785. 0 TACHYCARDIA NOS 09/25/2013 CHINA GOLDSTEIN MD Ot E942 .9 ADV EFF CARDIOVASC NEC 10/09/2013 MARJORIE HIGGINBOTHAM KARI L V58 .61 LONG-TERM (CURRENT) USE OF ANTICOAGULANTS 10/09/2013 MADL DIRECTOR OF ADULT EPILEPSY, KARI L V58 .61 LONG-TERM (CURRENT) USE OF ANTICOAGULANTS 10/09/2013 MADL DIRECTOR OF ADULT EPILEPSY, KARI L V58 .61 LONG-TERM (CURRENT) USE OF ANTICOAGULANTS 10/09/2013 ISABELLE FRANCIS DO V58.61 LONG-TERM (CURRENT) USE OF ANTICOAGULANTS 10/09/2013 CHINA GOLDSTEIN MD V58.61 LONG-TERM (CURRENT) USE OF ANTICOAGULANTS 10/09/2013 MADSulma DIRECTOR OF ADULT EPILEPSY, KARI L V58 .61 LONG-TERM (CURRENT) USE OF ANTICOAGULANTS 10/09/2013 MADL DIRECTOR OF ADULT EPILEPSY, KARI L V58 .61 LONG-TERM (CURRENT) USE OF ANTICOAGULANTS 10/09/2013 KARI AMADOR APRN L V58 .61 LONG-TERM (CURRENT) USE OF ANTICOAGULANTS 10/09/2013 KARI AMADOR APRN L V58 .61 LONG-TERM (CURRENT) USE OF ANTICOAGULANTS 10/09/2013 KARI AMADOR APRN V58 .61 LONG-TERM (CURRENT) USE OF ANTICOAGULANTS 10/09/2013 CHINA GOLDSTEIN MD V58.61 LONG-TERM (CURRENT) USE OF ANTICOAGULANTS 10/09/2013 KARI AMADOR APRN V58 .61 LONG-TERM (CURRENT) USE OF ANTICOAGULANTS 11/14/2013 CHINA GOLDSTEIN MD Ot 278. 00 OBESITY, NOS 11/14/2013 CHINA GOLDSTEIN MD Ot 401. 9 HYPERTENSION NOS 11/14/2013 CHINA GOLDSTEIN MD Ot 427. 31 ATRIAL FIBRILLATION 11/14/2013 CHINA GOLDSTEIN MD Ot 428. 0 CONGESTIVE HEART FAILURE NOS 11/14/2013 CHINA GOLDSTEIN MD Ot 428. 22 CHRONIC SYSTOLIC HRT FAILURE 11/14/2013 CHINA GOLDSTEIN MD Ot 785. 0 TACHYCARDIA NOS 11/14/2013 CHINA GOLDSTEIN MD Ot V58. 61 ANTICOAGULANTS,LT,CURRENT USE 11/14/2013 CHINA GOLDSTEIN MD Ot V58. 69 OTH MED,LT,CURRENT USE 11/14/2013 CHINA GOLDSTEIN MD Ot V85. 34 BODY MASS INDEX 34.0-34.9, ADULT 03/19/2014 Ot 397.0 03/19/2014 Ot 424.0 03/19/2014 Ot 427.1 03/19/2014 Ot 427.31 03/19/2014 Ot 785.1 03/19/2014 Ot 397.0 03/19/2014 Ot 424.0 03/19/2014 Ot 427.1 03/19/2014 Ot 427.31 03/19/2014 Ot 785.1 04/29/2014 CHINA GOLDSTEIN MD 428.0 CONGESTIVE HEART FAILURE UNSPECIFIED 04/29/2014 CHINA GOLDSTEIN MD 458.9 HYPOTENSION UNSPECIFIED 04/29/2014 CHINA GOLDSTEIN MD 785.1 PALPITATIONS 04/29/2014 KARI AMADOR APRN 428 .0 CONGESTIVE HEART FAILURE UNSPECIFIED 04/29/2014 KARI AMADOR APRN L 458 .9 HYPOTENSION UNSPECIFIED 04/29/2014 KARI AMADOR APRN L 785 .1 PALPITATIONS 02/10/2015 NATE PARRISH MARK K Ot 427.31 02/10/2015 NATE PARRISH MARK K Ot 428.0 02/10/2015 NATE PARRISH, MARK K Ot 458.9 02/10/2015 NATE PARRISH, MARK K Ot 785.1 03/18/2015 NATE PARRISH, MARK K Ot 427.31 03/18/2015 NATE PARRISH, MARK K Ot 428.0 03/18/2015 NATE PARRISH MARK K Ot 458.9 03/18/2015 NATE PARRISH MARK K Ot 785.1 09/14/2015 NATE PARRISH MARK K Ot 427.31 ATRIAL FIBRILLATION 09/14/2015 NATE PARRISH MARK K Ot 428.0 CONGESTIVE HEART FAILURE NOS 09/14/2015 NATE PARRISH MARK K Ot 458.9 HYPOTENSION NOS 09/14/2015 NATE PARRISH, MARK K Ot 785.1 PALPITATIONS 09/14/2015 CHINA GOLDSTEIN MD Ot I07. 1 RHEUMATIC TRICUSPID INSUFFICIENCY 09/14/2015 CHINA GOLDSTEIN MD Ot I10 ESSENTIAL (PRIMARY) HYPERTENSION 09/14/2015 CHINA GOLDSTEIN MD Ot I48. 91 UNSPECIFIED ATRIAL FIBRILLATION 09/14/2015 CHINA GOLDSTEIN MD Ot I50. 9 HEART FAILURE, UNSPECIFIED 01/27/2016 Ot 397.0 TRIC USPID VALVE DISEASE 01/27/2016 Ot 424.0 MITR AL VALVE DISORDER 01/27/2016 Ot 427.1 PARO X VENTRIC TACHYCARD 01/27/2016 Ot 427.31 ATR IAL FIBRILLATION 01/27/2016 Ot 785.1 PALP ITATIONS 01/28/2016 Ot 397.0 TRIC USPID VALVE DISEASE 01/28/2016 Ot 424.0 MITR AL VALVE DISORDER 01/28/2016 Ot 427.1 PARO X VENTRIC TACHYCARD 01/28/2016 Ot 427.31 ATR IAL FIBRILLATION 01/28/2016 Ot 785.1 PALP ITATIONS 05/31/2016 NATE PA, MARK K Ot 427.31 ATRIAL FIBRILLATION 05/31/2016 NATE PA, MARK K Ot 428.0 CONGESTIVE HEART FAILURE NOS 05/31/2016 NATE PA, MARK K Ot 458.9 HYPOTENSION NOS 05/31/2016 NATE PA, MARK K Ot 785.1 PALPITATIONS 05/31/2016 CHINA GOLDSTEIN MD Ot I07. 1 RHEUMATIC TRICUSPID INSUFFICIENCY 05/31/2016 CHINA GOLDSTEIN MD Ot I10 ESSENTIAL (PRIMARY) HYPERTENSION 05/31/2016 CHINA GOLDSTEIN MD Ot I48. 91 UNSPECIFIED ATRIAL FIBRILLATION 05/31/2016 CHINA GOLDSTEIN MD Ot I50. 9 HEART FAILURE, UNSPECIFIED 06/06/2016 NATE FRANCOIS, MARK K Ot 427.31 ATRIAL FIBRILLATION 06/06/2016 NATE FRANCOIS, MARK K Ot 428.0 CONGESTIVE HEART FAILURE NOS 06/06/2016 NATE FRANCOIS, MARK K Ot 458.9 HYPOTENSION NOS 06/06/2016 NATE FRANCOIS, MARK K Ot 785.1 PALPITATIONS 06/06/2016 CHINA GOLDSTEIN MD Ot I07. 1 RHEUMATIC TRICUSPID INSUFFICIENCY 06/06/2016 CHINA GOLDSTEIN MD Ot I10 ESSENTIAL (PRIMARY) HYPERTENSION 06/06/2016 CHINA GOLDSTEIN MD Ot I48. 91 UNSPECIFIED ATRIAL FIBRILLATION 06/06/2016 CHINA GOLDSTEIN MD Ot I50. 9 HEART FAILURE, UNSPECIFIED 06/06/2016 FRANCOKINGA PARRISH, MARK K Ot 427.31 ATRIAL FIBRILLATION 06/06/2016 DOTSONGEORGIANA FRANCOIS, MARK K Ot 428.0 CONGESTIVE HEART FAILURE NOS 06/06/2016 NATE PA, MARK K Ot 458.9 HYPOTENSION NOS 06/06/2016 NATE PA, MARK K Ot 785.1 PALPITATIONS 06/06/2016 CHINA GOLDSTEIN MD Ot I07. 1 RHEUMATIC TRICUSPID INSUFFICIENCY 06/06/2016 CHINA GOLDSTEIN MD Ot I10 ESSENTIAL (PRIMARY) HYPERTENSION 06/06/2016 CHINA GOLDSTEIN MD Ot I48. 91 UNSPECIFIED ATRIAL FIBRILLATION 06/06/2016 CHINA GOLDSTEIN MD Ot I50. 9 HEART FAILURE, UNSPECIFIED 06/06/2016 CHINA GOLDSTEIN MD Ot I48. 91 UNSPECIFIED ATRIAL FIBRILLATION 06/07/2016 CHINA GOLDSTEIN MD Ot I48. 91 UNSPECIFIED ATRIAL FIBRILLATION 06/09/2016 CHINA GOLDSTEIN MD Ot I48. 91 UNSPECIFIED ATRIAL FIBRILLATION 07/20/2016 CHINA GOLDSTEIN MD Ot I48. 91 UNSPECIFIED ATRIAL FIBRILLATION 03/31/2017 CHINA GOLDSTEIN MD Ot I48. 91 UNSPECIFIED ATRIAL FIBRILLATION 03/31/2017 ELADIO DANIELSON MD Ot I49 .8 OTHER SPECIFIED CARDIAC ARRHYTHMIAS 03/31/2017 ELADIO DANIELSON MD Ot Z79.01 SOFTWARE SOLUTIONS ARCHITECT (CURRENT) USE OF ANTICOAGULANT 03/31/2017 ELADIO DANIELSON MD Ot Z82.49 FAMILY HX OF ISCHEM HEART DIS AND OTH DI 05/26/2017 CHINA GOLDSTEIN MD Ot I48. 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, 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 07/14/2017 GUILHERME WARE MD, V Ot K21.9 GASTRO-ESOPHAGEAL REFLUX DISEASE WITHOUT 07/14/2017 GUILHERME WARE MD, V Ot R25.1 TREMOR, UNSPECIFIED 07/14/2017 GUILHERME WARE MD, V Ot Z95.810 PRESENCE OF AUTOMATIC (IMPLANTABLE) CARD 08/10/2017 GUILHERME WARE MD, V Ot F32.9 MAJOR DEPRESSIVE DISORDER, SINGLE EPISOD 08/10/2017 GUILHERME WARE MD, V Ot 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, 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 08/10/2017 GUILHERME WARE MD, V Ot K21.9 GASTRO-ESOPHAGEAL REFLUX DISEASE WITHOUT 08/10/2017 GUILHERME WARE MD, V Ot R25.1 TREMOR, UNSPECIFIED 08/10/2017 GUILHERME WARE MD, V Ot Z95.810 PRESENCE OF AUTOMATIC (IMPLANTABLE) CARD 08/28/2017 GUILHERME WARE MD, V Ot F32.9 MAJOR DEPRESSIVE DISORDER, SINGLE EPISOD 08/28/2017 GUILHERME WARE MD V Ot 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, 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 08/28/2017 GUILHERME WARE MD, V Ot K21.9 GASTRO-ESOPHAGEAL REFLUX DISEASE WITHOUT 08/28/2017 GUILHERME WARE MD V Ot R25.1 TREMOR, UNSPECIFIED 08/28/2017 GUILHERME WARE MD V Ot Z95.810 PRESENCE OF AUTOMATIC (IMPLANTABLE) CARD 08/29/2017 GUILHERME WARE MD V Ot F32.9 MAJOR DEPRESSIVE DISORDER, SINGLE EPISOD 08/29/2017 GUILHERME WARE MD V Ot 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, 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 08/29/2017 GUILHERME WARE MD, V Ot K21.9 GASTRO-ESOPHAGEAL REFLUX DISEASE WITHOUT 08/29/2017 GUILHERME WARE MD V Ot R25.1 TREMOR, UNSPECIFIED 08/29/2017 GUILHERME WARE MD V Ot Z95.810 PRESENCE OF AUTOMATIC (IMPLANTABLE) CARD 08/30/2017 GUILHERME WARE MD V Ot F32.9 MAJOR DEPRESSIVE DISORDER, SINGLE EPISOD 08/30/2017 AC WARE MDRA V Ot 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, 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 08/30/2017 GUILHERME WARE MD, V Ot K21.9 GASTRO-ESOPHAGEAL REFLUX DISEASE WITHOUT 08/30/2017 GUILHERME WARE MD V Ot R25.1 TREMOR, UNSPECIFIED 08/30/2017 GUILHERME WARE MD V Ot Z95.810 PRESENCE OF AUTOMATIC (IMPLANTABLE) CARD 09/11/2017 GUILHERME WARE MD, V Ot F32.9 MAJOR DEPRESSIVE DISORDER, SINGLE EPISOD 09/11/2017 GUILHERME WARE MD V Ot 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, 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 09/11/2017 GUILHERME WARE MD V Ot K21.9 GASTRO-ESOPHAGEAL REFLUX DISEASE WITHOUT 09/11/2017 GUILHERME WARE MD V Ot R25.1 TREMOR, UNSPECIFIED 09/11/2017 GUILHERME WARE MD V Ot Z95.810 PRESENCE OF AUTOMATIC (IMPLANTABLE) CARD 09/13/2017 GUILHERME WARE MD V Ot F32.9 MAJOR DEPRESSIVE DISORDER, SINGLE EPISOD 09/13/2017 PEDRO WARE MDNDRA V Ot 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, 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 09/13/2017 JEANIE SANTANA, GUILHERME V Ot K21.9 GASTRO-ESOPHAGEAL REFLUX DISEASE WITHOUT 09/13/2017 JEANIE SANTANA, GUILHERME V Ot R25.1 TREMOR, UNSPECIFIED 09/13/2017 PEDRO WARE MDNDRA V Ot Z95.810 PRESENCE OF AUTOMATIC (IMPLANTABLE) CARD 10/04/2017 GUILHERME WARE MD, V Ot F32.9 MAJOR DEPRESSIVE DISORDER, SINGLE EPISOD 10/04/2017 GUILHERME WARE MD V Ot 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, 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 10/04/2017 GUILHERME WARE MD V Ot K21.9 GASTRO-ESOPHAGEAL REFLUX DISEASE WITHOUT 10/04/2017 JEANIE SANTANA, GUILHERME V Ot R25.1 TREMOR, UNSPECIFIED 10/04/2017 AC WARE MDRA V Ot Z95.810 PRESENCE OF AUTOMATIC (IMPLANTABLE) CARD 11/15/2017 Ot I48.0 PARO XYSMAL ATRIAL FIBRILLATION 11/27/2017 GUILHERME WARE MD V Ot F32.9 MAJOR DEPRESSIVE DISORDER, SINGLE EPISOD 11/27/2017 GUILHERME WARE MD V Ot 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9 CARDIOMYOPATHY, UNSPECIFIED 05/09/2018 MONY ANDRADE DO Ot I48.91 UNSPECIFIED ATRIAL FIBRILLATION 05/09/2018 MONY ANDRADE DO Ot I50.9 HEART FAILURE, UNSPECIFIED 05/09/2018 MONY ANDRADE DO Ot K21.9 GASTRO-ESOPHAGEAL REFLUX DISEASE WITHOUT 05/09/2018 MONY ANDRADE DO Ot R07.89 OTHER CHEST PAIN 05/09/2018 MONY ANDRADE DO Ot R10.13 EPIGASTRIC PAIN 05/09/2018 MONY ANDRADE DO Ot Z79.01 SOFTWARE SOLUTIONS ARCHITECT (CURRENT) USE OF ANTICOAGULANT 05/09/2018 MONY ANDRADE DO Ot Z82.49 FAMILY HX OF ISCHEM HEART DIS AND OTH DI 05/09/2018 MONY ANDRADE DO Ot Z86.19 PERSONAL HISTORY OF OTHER INFECTIOUS AND 05/09/2018 MONY ANDRADE DO Ot Z87.19 PERSONAL HISTORY OF OTHER DISEASES OF TH 05/09/2018 MONY ANDRADE DO Ot Z88.0 ALLERGY STATUS TO PENICILLIN 05/09/2018 MONY ANDRADE DO Ot Z95.0 PRESENCE OF CARDIAC PACEMAKER 05/09/2018 MONY ANDRDAE DO Ot Z98.890 OTHER SPECIFIED POSTPROCEDURAL STATES 05/09/2018 Ot I48.0 PARO XYSMAL ATRIAL FIBRILLATION 05/09/2018 WARREN SANTANA, YERUVA V Ot I48. 0 PAROXYSMAL ATRIAL FIBRILLATION 05/09/2018 OCHOA SANTANA, RUSLAN Ot R53.83 OTHER FATIGUE 05/09/2018 MARIAJOSE NORTH MD Ot Z09 ENCNTR FOR F/U EXAM AFT TRTMT FOR COND O 05/09/2018 MARIAJOSE NORTH MD Ot Z95.810 PRESENCE OF AUTOMATIC (IMPLANTABLE) CARD 05/11/2018 RAYMOND MONY K Ot I42.9 CARDIOMYOPATHY, UNSPECIFIED 05/11/2018 RAYMOND DO MONY K Ot I48.91 UNSPECIFIED ATRIAL FIBRILLATION 05/11/2018 RAYMOND MONY K Ot I50.9 HEART FAILURE, UNSPECIFIED 05/11/2018 RAYMOND MONY K Ot K21.9 GASTRO-ESOPHAGEAL REFLUX DISEASE WITHOUT 05/11/2018 RAYMOND MICHAELAA K Ot R07.89 OTHER CHEST PAIN 05/11/2018 CUMMING MICHAELAA K Ot R10.13 EPIGASTRIC PAIN 05/11/2018 CUMMING MICHAELA MCGEEA Jesus Ot Z79.01 CORRECTION (CURRENT) USE OF ANTICOAGULANT 05/11/2018 CUMMING DO MONY K Ot Z82.49 FAMILY HX OF ISCHEM HEART DIS AND OTH DI 05/11/2018 RAYMOND MCGEE MONY K Ot Z86.19 PERSONAL HISTORY OF OTHER INFECTIOUS AND 05/11/2018 RAYMOND MICHAELAA K Ot Z87.19 PERSONAL HISTORY OF OTHER DISEASES OF TH 05/11/2018 RAYMOND MICHAELA MCGEEA K Ot Z88.0 ALLERGY STATUS TO PENICILLIN 05/11/2018 RAYMOND MICHAELA MCGEEA K Ot Z95.0 PRESENCE OF CARDIAC PACEMAKER 05/11/2018 RAYMOND MICHAELA MCGEEA K Ot Z98.890 OTHER SPECIFIED POSTPROCEDURAL STATES 05/25/2018 RUSLAN PACKER MD Ot R53.83 OTHER FATIGUE 05/25/2018 MARIAJOSE NORTH MD Ot Z09 ENCNTR FOR F/U EXAM AFT TRTMT FOR COND O 05/25/2018 MARIAJOSE NORTH MD Ot Z95.810 PRESENCE OF AUTOMATIC (IMPLANTABLE) CARD 12/04/2018 MEENU EL Ot G47.33 OBSTRUCTIVE SLEEP APNEA (ADULT) (PEDIATR 12/04/2018 MEENU EL Ot I47.2 VENTRICULAR TACHYCARDIA 05/07/2019 Ot I48.0 PARO XYSMAL ATRIAL FIBRILLATION 05/07/2019 WARREN SANTANA, LUIS ANGELNICKI Youngblood Ot I48. 0 PAROXYSMAL ATRIAL FIBRILLATION 05/07/2019 OCHOA SANTANA, RUSLAN Ot R53.83 OTHER FATIGUE 05/07/2019 CAN SANTANA, MARIAJOSE Navarro Ot Z09 ENCNTR FOR F/U EXAM AFT TRTMT FOR COND O 05/07/2019 MARIAJOSE NORTH MD Ot Z95.810 PRESENCE OF AUTOMATIC (IMPLANTABLE) CARD 05/07/2019 BIENVENIDO MANNING MD Ot I42.9 CARDIOMYOPATHY, UNSPECIFIED 05/07/2019 BIENVENIDO MANNING MD Ot I48.91 UNSPECIFIED ATRIAL FIBRILLATION 05/07/2019 BIENVENIDO MANNING MD Ot K21.9 GASTRO-ESOPHAGEAL REFLUX DISEASE WITHOUT 05/07/2019 BIENVENIDO MANNING MD Ot M79.10 MYALGIA, UNSPECIFIED SITE 05/07/2019 BIENVENIDO MANNING MD Ot R07.9 CHEST PAIN, UNSPECIFIED 05/07/2019 BIENVENIDO MANNING MD Ot R50.9 FEVER, UNSPECIFIED 05/07/2019 BIENVENIDO MANNING MD Ot Z82.49 FAMILY HX OF ISCHEM HEART DIS AND OTH DI 05/07/2019 BIENVENIDO MANNING MD Ot Z87.19 PERSONAL HISTORY OF OTHER DISEASES OF TH 05/07/2019 BIENVENIDO MANNING MD Ot Z88.0 ALLERGY STATUS TO PENICILLIN 05/07/2019 BIENVENIDO MANNING MD Ot Z95.0 PRESENCE OF CARDIAC PACEMAKER 05/09/2019 BIENVENIDO MANNING MD Ot I42.9 CARDIOMYOPATHY, UNSPECIFIED 05/09/2019 BIENVENIDO MANNING MD Ot I48.91 UNSPECIFIED ATRIAL FIBRILLATION 05/09/2019 BIENVENIDO MANNING MD Ot K21.9 GASTRO-ESOPHAGEAL REFLUX DISEASE WITHOUT 05/09/2019 BIENVENIDO MANNING MD Ot M79.10 MYALGIA, UNSPECIFIED SITE 05/09/2019 BIENVENIDO MANNING MD Ot R07.9 CHEST PAIN, UNSPECIFIED 05/09/2019 BIENVENIDO MANNING MD Ot R50.9 FEVER, UNSPECIFIED 05/09/2019 BIENVENIDO MANNING MD Ot Z82.49 FAMILY HX OF ISCHEM HEART DIS AND OTH DI 05/09/2019 BIENVENIDO MANNING MD, Ot Z87.19 PERSONAL HISTORY OF OTHER DISEASES OF TH 05/09/2019 NIGEL SANTANA, BIENVENIDO Lomas Ot Z88.0 ALLERGY STATUS TO PENICILLIN 05/09/2019 NIGEL SANTANA, BIENVENIDO Lomas Ot Z95.0 PRESENCE OF CARDIAC PACEMAKER 09/15/2019 OCHOA SANTANA, RUSLAN Vidal E55.9 VITAMIN D DEFICIENCY, UNSPECIFIED 09/15/2019 RUSLAN PACKER MD, Ot I48.0 PAROXYSMAL ATRIAL FIBRILLATION 09/15/2019 OCHOA SANTANA, RUSLAN Vidal Z00.00 ENCNTR FOR GENERAL ADULT MEDICAL EXAM W/ 09/15/2019 RUSLAN PACKER MD, Ot Z11.59 ENCOUNTER FOR SCREENING FOR OTHER VIRAL Procedures Code Description [place] [address] ROUT INE VENIPUNCTURE 04/20/2012 59104 H PY TIM (IN-HOUSE) 04/20/2012 48524 CMP 04/20/2012 [id number] GF R CALC (RESULT ONLY) 04/20/2012 32286 CBC 04/20/2012 84672 LIPASE 04/21/2012 29594 INFL UENZA A & B (IN-HOUSE) 03/16/2013 94043 EKG, TRACING (IN-HOUSE) 09/19/2013 99.61 ATRI AL CARDIOVERSION 09/21/2013 77633 ROUT INE VENIPUNCTURE 10/09/2013 31145 INR (IN HOUSE) 10/09/2013 [id number] GF R CALC (RESULT ONLY) 10/09/2013 53080 MAGNESIUM 10/09/2013 11259 CMP 10/09/2013 83910 ROUT INE VENIPUNCTURE 10/17/2013 Cardiolog [place] Goldstein 10/17/2013 74302 PT/INR 10/17/2013 98816 INR (IN HOUSE) 02/17/2014 99581 INR (IN HOUSE) 03/01/2014 46892 INR (IN HOUSE) 04/01/2014 35051 INR (IN HOUSE) 07/09/2014 79418 ROUT INE VENIPUNCTURE 07/09/2014 Results Test Result Range CBC With Differential/Platelet - 7 17:41 WBC 7.7 x10E3/uL 3.4-10.8 RBC 5.34 x10E6/uL 4.14-5.80 Hemoglobin 15.2 g/dL 12.6-17.7 Hematocrit 45.4 % 37.5-51.0 MCV 85 fL 79-97 MCH 28.5 pg 26.6-33.0 MCHC 33.5 g/dL 31.5-35.7 RDW 14.1 % 12.3-15.4 Platelets 279 x10E3/uL 150-379 Neutrophils 64 % Lymphs 26 % Monocytes 7 % Eos 2 % Basos 1 % Neutrophils (Absolute) 4.9 x10E3/uL 1.4- 7.0 Lymphs (Absolute) 2.0 x10E3/uL 0.7-3.1 Monocytes(Absolute) 0.5 x10E3/uL 0.1-0.9 Eos (Absolute) 0.2 x10E3/uL 0.0-0.4 Baso (Absolute) 0.0 x10E3/uL 0.0-0.2 Immature Granulocytes 0 % Immature Grans (Abs) 0.0 x10E3/uL 0.0-0. 1 Comp. Metabolic Panel (14) - 10/04/16 17 :41 Glucose, Serum 92 mg/dL 65-99 BUN 9 mg/dL 6-20 Creatinine, Serum 0.82 mg/dL 0.76-1.27 eGFR If NonAfricn Am 119 mL/min/1.73 >59 eGFR If Africn Am 137 mL/min/1.73 >5 9 BUN/Creatinine Ratio 11 9-20 Sodium, Serum 138 [...] 0-99 Urine drug screening test - 03/31/17 07: 25 Urine phencyclidine detection by screening method NEGATIVE NEGATIVE Urine benzodiazepines detection by screening method NEGATIVE NEGATIVE Urine cocaine detection NEGATIVE NEGATI VE Urine amphetamines detection by screening method N EGATIVE NEGATIVE Urine methamphetamine detection by screening method NEGATIVE NEGATIVE Urine cannabinoids detection by screening method N EGATIVE NEGATIVE Urine opiates detection by screening method NEGATI VE NEGATIVE Urine barbiturates detection NEGATIVE N EGATIVE Screening urine tricyclic antidepressants detection NEGATIVE NEGATIVE Urine methadone detection by screening method NEGA TIVE NEGATIVE Urine oxycodone detection NEGATIVE NEGA TIVE Urine propoxyphene detection NEGATIVE N EGATIVE Complete blood count (CBC) with automate d white blood cell (WBC) differential - 03/31/17 07:28 Blood leukocytes automated count (number/volume) 11.6 10*3/uL 4.3-11.0 Blood erythrocytes automated count (number/volume) 5.54 10*6/uL 4.35-5.85 Venous blood hemoglobin measurement (mass/volume) 16.0 g/dL 13.3-17.7 Blood hematocrit (volume fraction) 47 % 40-54 Automated erythrocyte mean corpuscular volume 85 [ foz_us] 80-99 Automated erythrocyte mean corpuscular h emoglobin (mass per erythrocyte) 29 pg 25-34 Automated erythrocyte mean corpuscular h emoglobin concentration measurement (mass/volume) 34 g/dL 32-36 Automated erythrocyte distribution width ratio 13. 6 % 10.0- 14.5 Automated blood platelet count (count/volume) 258 10*3/uL [...] 10*3 1.0-4.0 Blood monocytes automated count (number/volume) 0. 4 10*3 0.0-1.0 Automated eosinophil count 0.2 10*3/uL 0 .0-0.3 Automated blood basophil count (count/volume) 0.1 10*3/uL 0.0-0.1 PT panel in platelet poor plasma by coag ulation assay - 03/31/17 07:28 Prothrombin time (PT) in platelet poor plasma by coagu lation assay 22.4 s 12.2-14.7 INR in platelet poor plasma or blood by coagulation as say 2.0 0.8-1.4 Comprehensive metabolic panel - 03/31/17 07:28 Serum or plasma sodium measurement (moles/volume) 138 mmol/L 135-145 Serum or plasma potassium measurement (moles/volume) 3.3 mmol/L 3.6-5.0 Serum or plasma chloride measurement (moles/volume) 99 mmol/L 98-107 Carbon dioxide 13 mmol/L 21-32 Serum or plasma anion gap determination (moles/volume) 26 mmol/L 5-14 Serum or plasma urea nitrogen measurement (mass/volume ) 12 mg/dL 7-18 Serum or plasma creatinine measurement (mass/volume) 1.38 mg/dL 0.60-1.30 Serum or plasma urea nitrogen/creatinine mass ratio 9 NRG Serum or plasma creatinine measurement w ith calculation of estimated glomerular filtration rate 60 NRG Serum or plasma glucose measurement (mass/volume) 384 mg/dL 70-105 Serum or plasma calcium measurement (mass/volume) 9.3 mg/dL 8.5-10.1 Serum or plasma total bilirubin measurement (mass/volu me) 0.5 mg/dL 0.1-1.0 Serum or plasma alkaline phosphatase brendan surement (enzymatic activity/volume) 52 U/L 40-136 Serum or plasma aspartate aminotransfera se measurement (enzymatic activity/volume) 198 U/L 5-34 Serum or plasma alanine aminotransferase measurement (enzymatic activity/volume) 267 U/L 0-55 Serum or plasma protein measurement (mass/volume) 6.8 g/dL 6.4-8.2 Serum or plasma albumin measurement (mass/volume) 3.5 g/dL 3.2-4.5 Serum or plasma troponin i.cardiac measu rement (mass/volume) - 03/31/17 07:28 Serum or plasma troponin i.cardiac measurement (mass/v olume) < ng/mL <0.30 Blood manual differential performed dete ction - 03/31/17 07:28 Blood monocytes/100 leukocytes 9 % NRG Manual blood segmented neutrophils/100 leukocytes 27 % NRG Blood band neutrophils/100 leukocytes 4 % NRG Manual blood lymphocytes/100 leukocytes 56 % NRG Manual eosinophils/100 leukocytes in nose 3 % NRG Blood lymphocytes variant/100 leukocytes 1 % NRG Blood erythrocyte morphology finding identification NORMAL NRG Arterial blood gas measurement - 8 08:49 Blood pCO2 41 mm[Hg] 35-45 Blood pO2 72 mm[Hg] 79-93 Arterial blood bicarbonate measurement (moles/volume) 21 mmol/L 23-27 Arterial blood base excess by calculation -3.9 mmo l/L -2.5-2.5 Arterial blood oxygen saturation measurement 96 % 94-100 * Inhaled oxygen flow rate 80% NRG Arterial blood pH measurement with patient temperature correction 7.33 7.37-7.43 Arterial blood carbon dioxide, total measurement (mole s/volume) 22.7 mmol/L 21.0-31.0 Body site l radial NRG Assessment of wrist artery patency prior to arterial p uncture NEGATIVE NRG Setting of ventilation mode YES NR G Measurement of body temperature 95.7 NRG Whole blood basic metabolic panel - 09/04 07:18 Serum or plasma sodium measurement (moles/volume) 139 mmol/L 135-145 Serum or plasma potassium measurement (moles/volume) 3.8 mmol/L 3.6-5.0 Serum or plasma chloride measurement (moles/volume) 104 mmol/L 98-107 Carbon dioxide 23 mmol/L 21-32 Serum or plasma anion gap determination (moles/volume) 12 mmol/L 5-14 Serum or plasma urea nitrogen measurement (mass/volume ) 12 mg/dL 7-18 Serum or plasma creatinine measurement (mass/volume) 0.88 mg/dL 0.60-1.30 Serum or plasma urea nitrogen/creatinine mass ratio 14 NRG Serum or plasma creatinine measurement w ith calculation of estimated glomerular filtration rate > NRG Serum or plasma glucose measurement (mass/volume) 97 mg/dL 70-105 Serum or plasma calcium measurement (mass/volume) 9.4 mg/dL 8.5-10.1 Automated blood complete blood count (he mogram) panel - 04/21/18 17:45 Blood leukocytes automated count (number/volume) 8.7 10*3/uL 4.3-11.0 Blood erythrocytes automated count (number/volume) 4.97 10*6/uL 4.35-5.85 Venous blood hemoglobin measurement (mass/volume) 13.8 g/dL 13.3-17.7 Blood hematocrit (volume fraction) 41 % 40-54 Automated erythrocyte mean corpuscular volume 83 [ foz_us] 80-99 Automated erythrocyte mean corpuscular h emoglobin (mass per erythrocyte) 28 pg 25-34 Automated erythrocyte mean corpuscular h emoglobin concentration measurement (mass/volume) 34 g/dL 32-36 Automated erythrocyte distribution width ratio 14. 2 % 10.0- 14.5 Automated blood platelet count (count/volume) 248 10*3/uL 130-400 Automated blood platelet mean volume measurement 10.7 [foz_us] 7.4-10.4 Whole blood basic metabolic panel - 05/08 17:45 Serum or plasma sodium measurement (moles/volume) 137 mmol/L 135-145 Serum or plasma potassium measurement (moles/volume) 3.9 mmol/L 3.6-5.0 Serum or plasma chloride measurement (moles/volume) 102 mmol/L 98-107 Carbon dioxide 25 mmol/L 21-32 Serum or plasma anion gap determination (moles/volume) 10 mmol/L 5-14 Serum or plasma urea nitrogen measurement (mass/volume ) 12 mg/dL 7-18 Serum or plasma creatinine measurement (mass/volume) 0.85 mg/dL 0.60-1.30 Serum or plasma urea nitrogen/creatinine mass ratio 14 NRG Serum or plasma creatinine measurement w ith calculation of estimated glomerular filtration rate > NRG Serum or plasma glucose measurement (mass/volume) 92 mg/dL 70-105 Serum or plasma calcium measurement (mass/volume) 9.0 mg/dL 8.5-10.1 Magnesium - 04/21/18 17:45 Magnesium 2.1 mg/dL 1.8-2.4 THYROID STIMULATING HORMONE - 04/21/18 1 7:45 THYROID STIMULATING HORMONE 2.47 u[iU]/mL 0.35-4.94 Serum or plasma thyroxine (T4) free margaret urement (mass/volume) - 04/21/18 17:45 Serum or plasma thyroxine (T4) free measurement (mass/ volume) 1.07 ng/dL 0.70-1.48 Cyanocobalamin measurement - 04/21/18 17 :45 Vitamin B12 403 pg/mL 190-1100 VITAMIN D 25-HYDROXY - 04/21/18 17:45 VITAMIN D 25-HYDROXY (TOTAL) 18.7 % 3 0.0-100.0 Complete blood count (CBC) with automate d white blood cell (WBC) differential - 05/09/18 17:53 Blood leukocytes automated count (number/volume) 9.4 10*3/uL 4.3-11.0 Blood erythrocytes automated count (number/volume) 5.35 10*6/uL 4.35-5.85 Venous blood hemoglobin measurement (mass/volume) 14.5 g/dL 13.3-17.7 Blood hematocrit (volume fraction) 44 % 40-54 Automated erythrocyte mean corpuscular volume 83 [ foz_us] 80-99 Automated erythrocyte mean corpuscular h emoglobin (mass per erythrocyte) 27 pg 25-34 Automated erythrocyte mean corpuscular h emoglobin concentration measurement (mass/volume) 33 g/dL 32-36 Automated erythrocyte distribution width ratio 14. 1 % 10.0- 14.5 Automated blood platelet count (count/volume) 291 10*3/uL [...] 10*3 1.0-4.0 Blood monocytes automated count (number/volume) 0. 7 10*3 0.0-1.0 Automated eosinophil count 0.3 10*3/uL 0 .0-0.3 Automated blood basophil count (count/volume) 0.1 10*3/uL 0.0-0.1 PT panel in platelet poor plasma by coag ulation assay - 05/09/18 17:53 Prothrombin time (PT) in platelet poor plasma by coagu lation assay 13.3 s 12.2-14.7 INR in platelet poor plasma or blood by coagulation as say 1.0 0.8-1.4 Activated partial thromboplastin time (a PTT) in platelet poor plasma bycoagulation assay - 05/09/18 17:53 Activated partial thromboplastin time (a PTT) in platelet poor plasma bycoagulation assay 35 s 24-35 Comprehensive metabolic panel - 05/09/18 17:53 Serum or plasma sodium measurement (moles/volume) 136 mmol/L 135-145 Serum or plasma potassium measurement (moles/volume) 3.6 mmol/L 3.6-5.0 Serum or plasma chloride measurement (moles/volume) 100 mmol/L 98-107 Carbon dioxide 25 mmol/L 21-32 Serum or plasma anion gap determination (moles/volume) 11 mmol/L 5-14 Serum or plasma urea nitrogen measurement (mass/volume ) 10 mg/dL 7-18 Serum or plasma creatinine measurement (mass/volume) 0.97 mg/dL 0.60-1.30 Serum or plasma urea nitrogen/creatinine mass ratio 10 NRG Serum or plasma creatinine measurement w ith calculation of estimated glomerular filtration rate > NRG Serum or plasma glucose measurement (mass/volume) 96 mg/dL 70-105 Serum or plasma calcium measurement (mass/volume) 9.8 mg/dL 8.5-10.1 Serum or plasma total bilirubin measurement (mass/volu me) 0.4 mg/dL 0.1-1.0 Serum or plasma alkaline phosphatase brendan surement (enzymatic activity/volume) 60 U/L 40-136 Serum or plasma aspartate aminotransfera se measurement (enzymatic activity/volume) 30 U/L 5-34 Serum or plasma alanine aminotransferase measurement (enzymatic activity/volume) 37 U/L 0-55 Serum or plasma protein measurement (mass/volume) 8.1 g/dL 6.4-8.2 Serum or plasma albumin measurement (mass/volume) 4.5 g/dL 3.2-4.5 CALCIUM CORRECTED 9.4 mg/dL 8.5-10.1 Magnesium - 05/09/18 17:53 Magnesium 2.2 mg/dL 1.8-2.4 Serum or plasma creatine kinase measurem ent (enzymatic activity/volume) - 05/09/18 17:53 Serum or plasma creatine kinase measurem ent (enzymatic activity/volume) 67 U/L 30-200 Serum or plasma creatine kinase MB measu rement (enzymatic activity/volume) - 05/09/18 17:53 Serum or plasma creatine kinase MB measu rement (enzymatic activity/volume) 1.1 ng/mL <6.6 Serum or plasma troponin i.cardiac measu rement (mass/volume) - 05/09/18 17:53 Serum or plasma troponin i.cardiac measurement (mass/v olume) < ng/mL <0.028 Myoglobin, serum - 05/09/18 17:53 Myoglobin, serum 21.7 ng/mL 10.0-92.0 Serum or plasma amylase measurement (enz ymatic activity/volume) - 05/09/18 17:53 Serum or plasma amylase measurement (enzymatic activit y/volume) 51 U/L 25-125 Lipase - 05/09/18 17:53 Lipase 31 U/L 8-78 Serum or plasma lithium measurement (mol es/volume) - 05/09/18 17:53 BNP level 10.6 pg/mL <100.0 Influenza virus A and B antigen detectio n - 05/07/19 04:08 FLU RESULT NEGATIVE FOR INFLUENZA A AND B ANTIGENS BY [facility] Complete blood count (CBC) with automate d white blood cell (WBC) differential - 05/07/19 04:13 Blood leukocytes automated count (number/volume) 12.2 10*3/uL 4.3-11.0 Blood erythrocytes automated count (number/volume) 5.14 10*6/uL 4.35-5.85 Venous blood hemoglobin measurement (mass/volume) 13.8 g/dL 13.3-17.7 Blood hematocrit (volume fraction) 41 % 40-54 Automated erythrocyte mean corpuscular volume 80 [ foz_us] 80-99 Automated erythrocyte mean corpuscular h emoglobin (mass per erythrocyte) 27 pg 25-34 Automated erythrocyte mean corpuscular h emoglobin concentration measurement (mass/volume) 34 g/dL 32-36 Automated erythrocyte distribution width ratio 14. 8 % 10.0- 14.5 Automated blood platelet count (count/volume) 269 10*3/uL 130-400 Automated blood platelet mean volume measurement 10.7 [foz_us] 7.4-10.4 Automated blood neutrophils/100 leukocytes 76 % 42-75 Automated blood lymphocytes/100 leukocytes 13 % 12-44 Blood monocytes/100 leukocytes 10 % 0-12 Automated blood eosinophils/100 leukocytes 1 % 0-10 Automated blood basophils/100 leukocytes 0 % 0-10 Blood neutrophils automated count (number/volume) 9.2 10*3 1.8-7.8 Blood lymphocytes automated count (number/volume) 1.6 10*3 1.0-4.0 Blood monocytes automated count (number/volume) 1. 3 10*3 0.0-1.0 Automated eosinophil count 0.1 10*3/uL 0 .0-0.3 Automated blood basophil count (count/volume) 0.0 10*3/uL 0.0-0.1 PT panel in platelet poor plasma by coag ulation assay - 05/07/19 04:13 Prothrombin time (PT) in platelet poor plasma by coagu lation assay 13.8 s 12.2-14.7 INR in platelet poor plasma or blood by coagulation as say 1.0 0.8-1.4 Activated partial thromboplastin time (a PTT) in platelet poor plasma bycoagulation assay - 05/07/19 04:13 Activated partial thromboplastin time (a PTT) in platelet poor plasma bycoagulation assay 35 s 24-35 Comprehensive metabolic panel - 05/07/19 04:13 Serum or plasma sodium measurement (moles/volume) 137 mmol/L 135-145 Serum or plasma potassium measurement (moles/volume) 3.7 mmol/L 3.6-5.0 Serum or plasma chloride measurement (moles/volume) 101 mmol/L 98-107 Carbon dioxide 23 mmol/L 21-32 Serum or plasma anion gap determination (moles/volume) 13 mmol/L 5-14 Serum or plasma urea nitrogen measurement (mass/volume ) 11 mg/dL 7-18 Serum or plasma creatinine measurement (mass/volume) 0.78 mg/dL 0.60-1.30 Serum or plasma urea nitrogen/creatinine mass ratio 14 NRG Serum or plasma creatinine measurement w ith calculation of estimated glomerular filtration rate > NRG Serum or plasma glucose measurement (mass/volume) 111 mg/dL 70-105 Serum or plasma calcium measurement (mass/volume) 9.4 mg/dL 8.5-10.1 Serum or plasma total bilirubin measurement (mass/volu me) 0.7 mg/dL 0.1-1.0 Serum or plasma alkaline phosphatase brendan surement (enzymatic activity/volume) 53 U/L 40-136 Serum or plasma aspartate aminotransfera se measurement (enzymatic activity/volume) 16 U/L 5-34 Serum or plasma alanine aminotransferase measurement (enzymatic activity/volume) 24 U/L 0-55 Serum or plasma protein measurement (mass/volume) 7.8 g/dL 6.4-8.2 Serum or plasma albumin measurement (mass/volume) 4.2 g/dL 3.2-4.5 CALCIUM CORRECTED 9.2 mg/dL 8.5-10.1 Magnesium - 05/07/19 04:13 Magnesium 1.8 mg/dL 1.6-2.4 Serum or plasma troponin i.cardiac measu rement (mass/volume) - 05/07/19 04:13 Serum or plasma troponin i.cardiac measurement (mass/v olume) < ng/mL <0.028 Myoglobin, serum - 05/07/19 04:13 Myoglobin, serum 23.1 ng/mL 10.0-92.0 Comprehensive metabolic panel - 09/14/19 09:16 Serum or plasma sodium measurement (moles/volume) 138 mmol/L 135-145 Serum or plasma potassium measurement (moles/volume) 3.8 mmol/L 3.6-5.0 Serum or plasma chloride measurement (moles/volume) 103 mmol/L 98-107 Carbon dioxide 23 mmol/L 21-32 Serum or plasma anion gap determination (moles/volume) 12 mmol/L 5-14 Serum or plasma urea nitrogen measurement (mass/volume ) 9 mg/dL 7-18 Serum or plasma creatinine measurement (mass/volume) 0.75 mg/dL 0.60-1.30 Serum or plasma urea nitrogen/creatinine mass ratio 12 NRG Serum or plasma creatinine measurement w ith calculation of estimated glomerular filtration rate > NRG Serum or plasma glucose measurement (mass/volume) 98 mg/dL 70-105 Serum or plasma calcium measurement (mass/volume) 9.3 mg/dL 8.5-10.1 Serum or plasma total bilirubin measurement (mass/volu me) 1.0 mg/dL 0.1-1.0 Serum or plasma alkaline phosphatase brendan surement (enzymatic activity/volume) 72 U/L 40-136 Serum or plasma aspartate aminotransfera se measurement (enzymatic activity/volume) 23 U/L 5-34 Serum or plasma alanine aminotransferase measurement (enzymatic activity/volume) 25 U/L 0-55 Serum or plasma protein measurement (mass/volume) 7.5 g/dL 6.4-8.2 Serum or plasma albumin measurement (mass/volume) 4.1 g/dL 3.2-4.5 CALCIUM CORRECTED 9.2 mg/dL 8.5-10.1 Lipid 1996 panel - 09/14/19 09:16 Serum or plasma triglyceride measurement (mass/volume) 155 mg/dL <150 Serum or plasma cholesterol measurement (mass/volume) 170 mg/dL < 200 Serum or plasma cholesterol in HDL measurement (mass/v olume) 36 mg/dL 40-60 Cholesterol in LDL [mass/volume] in serum or plasma by direct assay 131 mg/dL 1-129 Serum or plasma cholesterol in VLDL measurement (mass/ volume) 31 mg/dL 5-40 THYROID STIMULATING HORMONE - 09/14/19 0 9:16 THYROID STIMULATING HORMONE 1.77 u[iU]/mL 0.35-4.94 Hepatitis C virus RNA viral load by prob e and target amplification method (units/volume) - 09/14/19 09:16 Hepatitis C virus (HCV) RNA viral load m easurement (log number/volume) Not Detected Not Detected HEP C COPIES ML Not Detected Not Detect ed VITAMIN D 25-HYDROXY - 09/14/19 09:16 VITAMIN D 25-HYDROXY (TOTAL) 44.2 % 3 0.0-100.0 Encounters ACCT No. Visit Date/Time Discharge Status Pt. Type Provider Facility Loc./Unit Complaint [id number] 10/05/2016 09:12:00 Document Registration [id number] 10/21/2019 12:00:00 10/21/2019 23:59: 59 CLS Outpatient MEENU EL APRN [facility] [id number] 07/09/2014 16:43:00 07/09/2014 23:59: 59 CLS Outpatient KARI AMADOR APRN [id number] 06/19/2014 16:53:00 06/19/2014 23:59: 59 CLS Outpatient JEFFREY SANTANA, [place] [id number] 04/17/2014 16:42:00 04/17/2014 23:59: 59 CLS Outpatient [facility] [employer]PILE[employer], KARI L [id number] 04/01/2014 17:00:00 04/01/2014 23:59: 59 CLS Outpatient [facility] [employer]ULT EPILEPSY, KARI L [id number] 03/01/2014 09:52:00 03/01/2014 23:59: 59 CLS Outpatient [facility] [employer]ULT [employer]LEPS[employer], KARI L [id number] 02/17/2014 16:54:00 02/17/2014 23:59: 59 CLS Outpatient [facility] [employer] ADULT EPILEPSY, KARI L [id number] 02/10/2014 15:18:00 02/10/2014 23:59: 59 CLS Outpatient [facility] [employer] ADULT E[employer]LEPS[employer], KARI L [id number] 01/24/2014 16:35:00 01/24/2014 23:59: 59 CLS Outpatient MADL DIRECTOR OF ADULT EPILEPSY, KARI L [id number] 01/15/2014 00:00:00 01/15/2014 23:59: 59 CLS Outpatient CHINA GOLDSTEIN MD [id number] 12/19/2013 15:47:00 12/19/2013 23:59: 59 CLS Outpatient ISABELLE FRANCIS DO [id number] 11/08/2013 15:03:00 11/08/2013 23:59: 59 CLS Outpatient MADL DIRECTOR OF ADULT EPILEPSY, KARI L [id number] 10/17/2013 15:03:00 10/17/2013 23:59: 59 CLS Outpatient MADL DIRECTOR OF ADULT EPILEPSY, KARI L [id number] 10/09/2013 10:47:00 10/09/2013 23:59: 59 CLS Outpatient MADL DIRECTOR OF ADULT EPILEPSY, KARI L [id number] 09/19/2013 15:59:00 09/19/2013 23:59: 59 CLS Outpatient CHERI MESSINA MD [id number] 03/16/2013 09:41:00 03/16/2013 23:59: 59 CLS Outpatient ISABELLE FRANCIS DO [id number] 05/10/2012 14:53:00 05/10/2012 23:59: 59 CLS Outpatient BROOK WILSON MD [id number] 04/20/2012 11:21:00 04/20/2012 23:59: 59 CLS Outpatient BROOK WILSON MD [id number] 07/31/2012 17:07:00 Document Registration [id number] 09/14/2019 08:43:00 23:59:59 CLS Outpatient RUSLAN PACKER MD [facility] LAB Z00.00, E55.9, Z11.59, I48.0 [id number] 05/07/2019 03:56:00 05:32:00 DIS Emergency BIENVENIDO MANNING MD [facility] ER NECK CP,HRT R ATE 100,SOB [id number] 12/03/2018 19:58:00 06:30:00 DIS Outpatient MEENU EL [facility] SLEEP G47.33 REMINGTON [id number] 07/31/2018 08:09:00 23:59:59 CLS Preadmit MEENU EL [facility] SLEEP REMINGTON [id number] 05/09/2018 17:51:00 20:00:00 DIS Emergency RAYMOND DO, MONY K [facility] ER CHEST PAIN, SOB [id number] 04/21/2018 17:24:00 23:59:59 CLS Outpatient MARIAJOSE NORTH MD [facility] LAB REVISION IMPLANTED PACE MAKER [id number] 04/21/2018 17:17:00 23:59:59 CLS Outpatient RUSLAN PACKER MD [facility] LAB FATIGUE [id number] 04/19/2018 12:46:00 17:00:00 DIS Outpatient RUSLAN PACKER MD [facility] REHAB ANOXIC BRAIN INJURY [id number] 03/27/2018 13:00:00 00:01:00 DIS Outpatient RUSLAN PACKER MD [facility] REHAB ANOXIC BRAIN INJURY [id number] 12/23/2017 06:57:00 23:59:59 CLS Outpatient DEBRA KELLEY MD, V [facility] LAB PAF 427.31,148.0 [id number] 09/21/2017 13:00:00 018 09:29:00 DIS Outpatient GUILHERME WARE MD, V [facility] REHAB ANOXIC BRAIN IN JURY; BALANCE [id number] 08/24/2017 13:01:00 018 00:01:00 DIS Outpatient GUILHERME WARE MD, V [facility] REHAB ANOXIC BRAIN IN JURY; BALANCE [id number] 03/31/2017 07:00:00 018 09:18:00 DIS Emergency ELADIO DANIELSON MD [facility] ER ASYSTOLIC [id number] 06/06/2016 07:20:00 017 23:59:59 CLS Outpatient CHINA GOLDSTEIN MD [facility] CARD AFIB [id number] 03/16/2015 09:33:00 015 23:59:59 CLS Outpatient CHINA GOLDSTEIN MD [facility] CARD A-FIB,HTN [id number] 11/13/2013 08:42:00 014 09:00:00 DIS Outpatient CHINA GOLDSTEIN MD [facility] CATH AFIB,CHF,PALPITATIONS [id number] 10/01/2013 15:31:00 014 23:59:59 CLS Outpatient MONIKA MAXWELL [facility] LAB CHF,RVR.PAL PATATIONS [id number] 09/19/2013 18:30:00 014 19:18:00 DIS Inpatient CHINA GOLDSTEIN MD [facility] CSD AFIB [id number] 10/28/2019 09:33:[address] Emergency TASNEEM SAMUEL DO [facility] ER SOB;CHEST PAIN [id number] 10/30/2017 17:26:00 Document Registration [id number] 05/25/2011 08:32:00 Document Registration [id number] 05/19/2011 10:47:00 Document Registration [id number] 04/17/2011 18:21:00 Document Registration
[2019-10-28 10:05] LABS: BASOPHILS # (AUTO) 0.1 10^3/uL (0.0-0.1); BASOPHILS % (AUTO) 1 % (0-10); EOSINOPHILS # (AUTO) 0.3 10^3/uL (0.0-0.3); EOSINOPHILS % (AUTO) 3 % (0-10); HEMATOCRIT 44 % (40-54); HEMOGLOBIN 14.5 G/DL (13.3-17.7); LYMPHOCYTES # (AUTO) 2.3 X 10^3 (1.0-4.0); LYMPHOCYTES % (AUTO) 21 % (12-44); MEAN CORPUSCULAR HEMOGLOBIN 26 PG (25-34); MEAN CORPUSCULAR HGB CONC 33 G/DL (32-36); MEAN CORPUSCULAR VOLUME 79 FL (80-99); MEAN PLATELET VOLUME 10.2 FL (7.4-10.4); MONOCYTES # (AUTO) 0.8 X 10^3 (0.0-1.0); MONOCYTES % (AUTO) 7 % (0-12); NEUTROPHILS # (AUTO) 7.6 X 10^3 (1.8-7.8); NEUTROPHILS % (AUTO) 69 % (42-75); PLATELET COUNT 286 10^3/uL (130-400); RED CELL DISTRIBUTION WIDTH 16.6 % (10.0-14.5); WHITE BLOOD COUNT 10.9 10^3/uL (4.3-11.0)
[2019-10-28 10:17] LABS: ALBUMIN 4.3 GM/DL (3.2-4.5); CHLORIDE 102 MMOL/L (98-107); POTASSIUM 4.3 MMOL/L (3.6-5.0); SODIUM 138 MMOL/L (135-145)
[2019-10-28 10:20] LABS: GLUCOSE 113 MG/DL (70-105); TOTAL PROTEIN 8.1 GM/DL (6.4-8.2)
[2019-10-28 10:21] LABS: BILIRUBIN,TOTAL 0.4 MG/DL (0.1-1.0); CARBON DIOXIDE 26 MMOL/L (21-32)
[2019-10-28 10:23] LABS: ALKALINE PHOSPHATASE 60 U/L (40-136)
[2019-10-28 10:24] LABS: BUN/CREATININE RATIO 12; CREATININE SERUM 0.85 MG/DL (0.60-1.30); GFR ESTIMATED > 60
[2019-10-28 10:25] LABS: INR 0.9 (0.8-1.4); PROTHROMBIN TIME PATIENT 12.8 SEC (12.2-14.7)
[2019-10-28 10:26] LABS: ALANINE AMINOTRANSFERASE 26 U/L (0-55)
[2019-10-28 10:27] LABS: LIPASE 18 U/L (8-78)
--- NOTE | 2019-10-28 11:04 | Diagnostic Imaging Report ---
INDICATION: Chest pain and shortness of air. TIME OF EXAM: 10:45 AM Correlation is made with prior chest 05/07/2019. FINDINGS: Cardiac defibrillator remains in place. Heart size is stable. The lungs are clear. No infiltrate is detected. No effusion or pneumothorax is detected. The pulmonary vascularity is normal. IMPRESSION: No acute cardiopulmonary process is detected. Dictated by: Dictated on workstation # [id number]
[2019-10-28 12:59] VITALS: BP 118/83
== END 2019-10-28 12:59 | disposition home or self-care (01) ==
LOC: EDUNIT# 09:32 → ER 09:33
DX: K21.9 Gastro-esophageal reflux disease without esophagitis (principal); I25.2 Old myocardial infarction; I48.91 Unspecified atrial fibrillation; Z87.820 Personal history of traumatic brain injury; Z88.0 Allergy status to penicillin; Z79.01 Long term (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; Z95.0 Presence of cardiac pacemaker; Z82.49 Family history of ischemic heart disease and other diseases of the circulatory system
CPT/HCPCS: 36415; 71045; 80053; 83690; 83735; 83874; 84484; 85025; 85610; 85730; 93005; 93041

== ENCOUNTER 2020-05-20 21:25 | Emergency (ER) | payer MEDICAID ==
[~2020-05-20] VITALS: Ht 167 cm; Wt 99.7 kg
[~2020-05-20 21:25] MED LIST changes: -PANT40TA3; +PANT40TA52; +SERT-413; -SERT50TA9
--- NOTE | 2020-05-20 21:57 | ED Chest Pain ---
General Chief Complaint: Chest Pain Stated Complaint: CHEST DISCOMFORT / HX: AFIB Nursing Triage Note: PT PRESENTS TO ED VIA POV FROM HOME WITH COMPLAINTS OF L SIDED CP STARTING AT 1900. PT JACY NURIA, N/V. Nursing Sepsis Screen: No Definite Risk Source: patient, family Exam Limitations: no limitations History of Present Illness Date Seen by Provider: May 20, 2020 Time Seen by Provider: 21:40 Initial Comments Patient is a 35-year-old male who presents to the emergency department this evening by POV with a chief complaint of chest pain/"tightness". Patient states that he was sitting finishing up some accounting homework at around 6 PM when he had an onset of this discomfort. He states that it is nonradiating, he is not nauseated, he does not feel short of breath, he did not break out into a sweat at the onset of the pain. Patient denies any recent illnesses such as fevers, chills, cough, congestion. No vomiting or diarrhea. No urinary complaints. The patient denies any swelling in his lower extremities. He does have a fairly complex past medical history with a long history of intermittent atrial fibrillation that ultimately resulted in an episode of ventricular tachycardia in 2018. The patient was flown to where he underwent pacemaker defibrillator placement. He follows with a greeting card editor at . Patient is no longer on blood thinners. He does continue to take Entresto, metoprolol and baby aspirin daily. 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 He does have some short-term memory loss. His father is present at the bedside to provide further history. His father is wondering if his chest pain may be related to anxiety as the patient recently started a college course and is really struggling with this. At the time of my evaluation the patient rates his discomfort at "a 5 or 6" All other review of systems reviewed and negative except as stated. Timing/Duration: 1-3 hours Severity/Quality: moderate, tightness Location: central Radiation: no radiation Activities at Onset: emotional stress (doing accounting homework) ASA po FLOOR MANAGER: Yes NTG SL FLOOR MANAGER: No Associated Symptoms: denies symptoms Allergies and Home Medications Allergies Coded Allergies: Penicillins (Verified Allergy, Unknown, 09/19/13) Home Medications Apixaban 5 Mg Tablet, 5 MG PO BID, (Reported) Calcium Carbonate/Mag Carb/FA 1 Each Tablet, 1 EACH PO BID, (Reported) Metoprolol Tartrate 50 Mg Tablet, 50 MG PO BID, (Reported) Patient Home Medication List Home Medication List Reviewed: Yes Review of Systems Review of Systems Constitutional: see HPI EENTM: No Symptoms Reported Respiratory: No Symptoms Reported Cardiovascular: Chest Pain ("tightness") Gastrointestinal: No Symptoms Reported Musculoskeletal: no symptoms reported Skin: no symptoms reported Psychiatric/Neurological: No Symptoms Reported All Other Systems Reviewed Negative Unless Noted: Yes Past Sxrszou-Wiibfh-Buhgda Hx Patient Social History Alcohol Use: Denies Use Smoking Status: Never a Smoker 2nd Hand Smoke Exposure: No Recent Infectious Disease Expo: No Recent Hopitalizations: No Immunizations Up To Date Tetanus Booster (TDap): More than 5yrs Past Medical History Surgeries: Yes (ABLATION, MINI JOHNNA, PEG TUBE, TRACH) Pacemaker Respiratory: No Cardiac: Yes Atrial Fibrillation, Cardiomyopathy Neurological: Yes Reproductive Disorders: No Genitourinary: No Gastrointestinal: Yes Gastroesophageal Reflux, Chronic Constipation Musculoskeletal: No Endocrine: No HEENT: No Cancer: No Psychosocial: No Integumentary: Yes Herpes Blood Disorders: No Adverse Reaction/Blood Tranf: No Family Medical History Family history: Arthritis 19 FATHER (rhumatoid arthrtis) 19 MOTHER Family history: Asthma 19 MOTHER Family history: Hypertension 19 FATHER History of - anemia 19 MOTHER Hypercholesterolemia 19 FATHER Psychotic disorder 19 MOTHER (depression/anxiety) Physical Exam Vital Signs Vital Signs - First Documented 05/20/20 21:31 Temp 36.8 Pulse 73 Resp 18 B/P (MAP) 131/99 (110) Pulse Ox 95 O2 Delivery Room Air Capillary Refill : Less Than 3 Seconds Height, Weight, BMI Height: 5'4.00" Weight: 217lbs. 7.0oz. 98.183417wg; 35.00 BMI Method:Stated General Appearance: No Apparent Distress, WD/WN HEENT: PERRL/EOMI Respiratory: Chest Non Tender, Lungs Clear, Normal Breath Sounds, No Accessory Muscle Use, No Respiratory Distress Cardiovascular: Regular Rate, Rhythm, No Gallop, No Murmur, Normal Peripheral Pulses Gastrointestinal: Normal Bowel Sounds, Non Tender, Soft Extremity: Normal Capillary Refill, Normal Inspection, Normal Range of Motion, Non Tender, No Calf Tenderness, No Pedal Edema Neurologic/Psychiatric: Alert, Oriented x3, No Motor/Sensory Deficits, Normal Mood/Affect Skin: Normal Color, Warm/Dry Procedures/Interventions Date of ETT Placement: Mar 31, 2017 Time of ETT Placement: 0756 Progress/Results/Core Measures Results/Orders Lab Results Laboratory Tests Test 05/20/20 21:30 05/20/20 23:41 Range/Units White Blood Count 10.3 4.3-11.0 10^3/uL Red Blood Count 5.33 4.30-5.52 10^6/uL Hemoglobin 14.3 13.3-17.7 g/dL Hematocrit 44 40-54 % Mean Corpuscular Volume 83 80-99 fL Mean Corpuscular Hemoglobin 27 25-34 pg Mean Corpuscular Hemoglobin Concent 32 32-36 g/dL Red Cell Distribution Width 14.7 H 10.0-14.5 % Platelet Count 301 130-400 10^3/uL Mean Platelet Volume 11.1 9.0-12.2 fL Immature Granulocyte % (Auto) 1 % Neutrophils (%) (Auto) 68 42-75 % Lymphocytes (%) (Auto) 23 12-44 % Monocytes (%) (Auto) 6 0-12 % Eosinophils (%) (Auto) 2 0-10 % Basophils (%) (Auto) 1 0-10 % Neutrophils # (Auto) 7.0 1.8-7.8 10^3/uL Lymphocytes # (Auto) 2.4 1.0-4.0 10^3/uL Monocytes # (Auto) 0.6 0.0-1.0 10^3/uL Eosinophils # (Auto) 0.2 0.0-0.3 10^3/uL Basophils # (Auto) 0.1 0.0-0.1 10^3/uL Immature Granulocyte # (Auto) 0.1 0.0-0.1 10^3/uL Sodium Level 141 135-145 MMOL/L Potassium Level 3.7 3.6-5.0 MMOL/L Chloride Level 103 98-107 MMOL/L Carbon Dioxide Level 27 21-32 MMOL/L Anion Gap 11 5-14 MMOL/L Blood Urea Nitrogen 11 7-18 MG/DL Creatinine 0.89 0.60-1.30 MG/DL Estimat Glomerular Filtration Rate > 60 BUN/Creatinine Ratio 12 Glucose Level 105 70-105 MG/DL Calcium Level 9.2 8.5-10.1 MG/DL Total Creatine Kinase 67 30-200 U/L Creatine Kinase MB 1.5 <6.6 NG/ML Troponin I < 0.028 < 0.028 <0.028 NG/ML My Orders Orders - CAMERON VERMA MD Aspirin Chewable Tablet (Baby Aspirin Ch (05/20/20 22:00) Basic Metabolic Panel (05/20/20 21:53) Cbc With Automated Diff (05/20/20 21:53) Troponin I (05/20/20 21:53) Creatine Kinase (05/20/20 21:53) Creatine Kinase Mb (05/20/20 21:53) Chest 1 View, Ap/Pa Only (05/20/20 21:53) Ekg Tracing (05/20/20 21:53) Troponin I (05/20/20 23:36) Medications Given in ED Current Medications Medications Dose Ordered Sig/William Route Start Time Stop Time Status Last Admin Dose Admin Aspirin 324 mg ONCE ONCE PO 05/20/20 22:00 05/20/20 22:01 DC 05/20/20 21:58 324 MG Vital Signs/I&O 05/20/20 05/20/20 21:31 21:31 Temp 36.8 Pulse 73 Resp 18 B/P (MAP) 131/99 (110) Pulse Ox 95 O2 Delivery Room Air Blood Pressure Mean: 110 Progress Progress Note : Time: 22:47 Progress Note Patient seen and examined, evaluation today includes a physical exam, CBC, BMP, cardiac enzyme profile, chest x-ray and EKG. Patient seems to be resting comfortably with his pain at a 5 or 6. Review of medical records shows the patient has had previous visits to the emergency department with similar complaints. Plan is to repeat his cardiac enzymes at 1130 to evaluate for trending cardiac enzyme profile. Patient is made aware of this. He is comfortable with the plan of care. Diagnostic Imaging Diagonstic Imaging: Xray Plain Films/CT/US/NM/MRI: chest Comments Chest x-ray is unremarkable, no effusions, pneumothorax; normal bony structures, normal mediastinum; pacer defibrillator in place Departure Impression Primary Impression: Chest pain Qualified Codes: R07.9 - Chest pain, unspecified Disposition: 01 HOME, SELF-CARE Condition: Stable Departure-Patient Inst. Decision time for Depature: 00:18 Referrals: BROOK WILSON MD (PCP/Family) Primary Care Physician Patient Instructions: Chest Pain That Is Not Caused by the Heart (DC) Add. Discharge Instructions: Continue your home daily medications. Follow-up with your primary care doctor and your greeting card editor as scheduled. Return to the emergency room for any return of chest pain especially associated with shortness of breath, sweating or nausea or any other emergent concerns. Copy Copies To 1: BROOK WILSON MD, KATHRYN M MD May 20, 2020 21:56
[2020-05-20] MEDS ORDERED: ASPIRIN 81 MG CHEW (CHILDREN'S ASA) PO ONE (22:00)
[2020-05-20 22:19] LABS: BASOPHILS # (AUTO) 0.1 10^3/uL (0.0-0.1); BASOPHILS % (AUTO) 1 % (0-10); EOSINOPHILS # (AUTO) 0.2 10^3/uL (0.0-0.3); EOSINOPHILS % (AUTO) 2 % (0-10); HEMATOCRIT 44 % (40-54); HEMOGLOBIN 14.3 g/dL (13.3-17.7); LYMPHOCYTES # (AUTO) 2.4 10^3/uL (1.0-4.0); LYMPHOCYTES % (AUTO) 23 % (12-44); MEAN CORPUSCULAR HEMOGLOBIN 27 pg (25-34); MEAN CORPUSCULAR HGB CONC 32 g/dL (32-36); MEAN CORPUSCULAR VOLUME 83 fL (80-99); MEAN PLATELET VOLUME 11.1 fL (9.0-12.2); MONOCYTES # (AUTO) 0.6 10^3/uL (0.0-1.0); MONOCYTES % (AUTO) 6 % (0-12); NEUTROPHILS % (AUTO) 68 % (42-75); PLATELET COUNT 301 10^3/uL (130-400); WHITE BLOOD COUNT 10.3 10^3/uL (4.3-11.0)
[2020-05-20 22:25] LABS: CHLORIDE 103 MMOL/L (98-107); POTASSIUM 3.7 MMOL/L (3.6-5.0); SODIUM 141 MMOL/L (135-145)
[2020-05-20 22:26] LABS: CALCIUM 9.2 MG/DL (8.5-10.1); GLUCOSE 105 MG/DL (70-105)
[2020-05-20 22:28] LABS: CARBON DIOXIDE 27 MMOL/L (21-32)
[2020-05-20 22:30] LABS: CREATININE SERUM 0.89 MG/DL (0.60-1.30); GFR ESTIMATED > 60
[2020-05-20 22:31] LABS: BUN/CREATININE RATIO 12
[2020-05-20 22:33] LABS: CREATINE KINASE 67 U/L (30-200)
[2020-05-20 22:39] LABS: CREATINE KINASE MB 1.5 NG/ML (<6.6)
[2020-05-21 00:32] VITALS: BP 102/72
--- NOTE | 2020-05-21 05:24 | Diagnostic Imaging Report ---
INDICATION: Chest pain Portable chest 10:23 PM There is a dual-chamber pacemaker. There are postoperative changes from left atrial appendage clipping. Heart size and pulmonary vascularity are normal. Lungs are clear. There are no effusions or pneumothoraces. IMPRESSION: No acute abnormalities in the chest Dictated by: Dictated on workstation # [id number]
== END 2020-05-21 00:32 | disposition home or self-care (01) ==
LOC: EDUNIT# 21:25 → ER 21:27
DX: R07.9 Chest pain, unspecified (principal); I48.91 Unspecified atrial fibrillation; Z88.0 Allergy status to penicillin; Z87.820 Personal history of traumatic brain injury; Z82.61 Family history of arthritis; Z79.01 Long term (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
CPT/HCPCS: 36415; 71045; 80048; 82550; 82553; 84484; 85025; 93005

== ENCOUNTER → 2020-10-17 | Outpatient (CLI) | payer MEDICAID ==
[2020-10-17 09:26] LABS: CREATININE SERUM 0.92 MG/DL (0.60-1.30)
[2020-10-17 09:27] LABS: CALCIUM 9.2 MG/DL (8.5-10.1)
== END ==
LOC: LAB 07:51
PROVIDERS: ATTEND Internal Medicine Cardiovascular Disease
DX: I48.0 Paroxysmal atrial fibrillation (principal); I50.22 Chronic systolic (congestive) heart failure; I42.8 Other cardiomyopathies
CPT/HCPCS: 36415; 80048

== ENCOUNTER → 2020-10-17 | Outpatient (CLI) | payer MEDICAID ==
[2020-10-17 08:31] LABS: BASOPHILS # (AUTO) 0.1 10^3/uL (0.0-0.1); BASOPHILS % (AUTO) 1 % (0-10); EOSINOPHILS # (AUTO) 0.2 10^3/uL (0.0-0.3); EOSINOPHILS % (AUTO) 3 % (0-10); HEMATOCRIT 45 % (40-54); HEMOGLOBIN 14.6 g/dL (13.3-17.7); LYMPHOCYTES # (AUTO) 1.9 10^3/uL (1.0-4.0); LYMPHOCYTES % (AUTO) 26 % (12-44); MEAN CORPUSCULAR HEMOGLOBIN 27 pg (25-34); MEAN CORPUSCULAR HGB CONC 32 g/dL (32-36); MEAN CORPUSCULAR VOLUME 84 fL (80-99); MEAN PLATELET VOLUME 10.7 fL (9.0-12.2); MONOCYTES # (AUTO) 0.5 10^3/uL (0.0-1.0); MONOCYTES % (AUTO) 7 % (0-12); NEUTROPHILS # (AUTO) 4.6 10^3/uL (1.8-7.8); NEUTROPHILS % (AUTO) 62 % (42-75); PLATELET COUNT 260 10^3/uL (130-400); WHITE BLOOD COUNT 7.3 10^3/uL (4.3-11.0)
[2020-10-17 08:55] LABS: BILIRUBIN,TOTAL 1.1 MG/DL (0.1-1.0); CALCIUM 9.2 MG/DL (8.5-10.1); CREATININE SERUM 0.92 MG/DL (0.60-1.30); TOTAL PROTEIN 7.5 GM/DL (6.4-8.2)
== END ==
LOC: LAB 07:44
PROVIDERS: ATTEND Internal Medicine
DX: Z00.00 Encounter for general adult medical examination without abnormal findings (principal); Z13.220 Encounter for screening for lipoid disorders; Z11.59 Encounter for screening for other viral diseases; I48.0 Paroxysmal atrial fibrillation; G47.33 Obstructive sleep apnea (adult) (pediatric); R41.89 Other symptoms and signs involving cognitive functions and awareness; Z99.89 Dependence on other enabling machines and devices
CPT/HCPCS: 36415; 80053; 80061; 84443; 85025

== ENCOUNTER → 2020-10-21 | Outpatient (CLI) | payer MEDICAID | LOC: LABNPT 06:23 | PROVIDERS: ATTEND Otolaryngology Otolaryngology/Facial Plastic Surgery | DX: G47.33 Obstructive sleep apnea (adult) (pediatric) (principal) | CPT/HCPCS: 87635 ==

== ENCOUNTER 2020-10-23 20:38 | Outpatient (CLI) | payer MEDICAID | END 2020-10-24 06:35 | disposition home or self-care (01) | LOC: SLEEP 20:38 | PROVIDERS: ATTEND Otolaryngology Otolaryngology/Facial Plastic Surgery | DX: G47.33 Obstructive sleep apnea (adult) (pediatric) (principal); R09.02 Hypoxemia | CPT/HCPCS: 95810 ==

== ENCOUNTER → 2021-09-07 | Outpatient (CLI) | payer MEDICAID ==
[2021-09-07 07:50] LABS: BASOPHILS # (AUTO) 0.1 10^3/uL (0.0-0.1); BASOPHILS % (AUTO) 1 % (0-10); EOSINOPHILS # (AUTO) 0.3 10^3/uL (0.0-0.3); EOSINOPHILS % (AUTO) 4 % (0-10); HEMATOCRIT 46 % (40-54); LYMPHOCYTES # (AUTO) 2.2 10^3/uL (1.0-4.0); LYMPHOCYTES % (AUTO) 30 % (12-44); MEAN CORPUSCULAR HEMOGLOBIN 28 pg (25-34); MEAN CORPUSCULAR HGB CONC 33 g/dL (32-36); MEAN CORPUSCULAR VOLUME 84 fL (80-99); MEAN PLATELET VOLUME 10.3 fL (9.0-12.2); MONOCYTES # (AUTO) 0.5 10^3/uL (0.0-1.0); MONOCYTES % (AUTO) 8 % (0-12); NEUTROPHILS # (AUTO) 4.1 10^3/uL (1.8-7.8); NEUTROPHILS % (AUTO) 57 % (42-75); PLATELET COUNT 269 10^3/uL (130-400); WHITE BLOOD COUNT 7.2 10^3/uL (4.3-11.0)
[2021-09-07 08:53] LABS: ALBUMIN 4.1 GM/DL (3.2-4.5); BILIRUBIN,TOTAL 0.8 MG/DL (0.1-1.0); CALCIUM 8.9 MG/DL (8.5-10.1); CREATININE SERUM 0.81 MG/DL (0.60-1.30); POTASSIUM 3.8 MMOL/L (3.6-5.0); TOTAL PROTEIN 7.1 GM/DL (6.4-8.2)
[2021-09-07 09:15] LABS: FREE T4 (FREE THYROXINE) 1.01 NG/DL (0.70-1.48)
== END ==
LOC: LAB
PROVIDERS: ATTEND Internal Medicine
DX: Z00.00 Encounter for general adult medical examination without abnormal findings (principal); Z11.59 Encounter for screening for other viral diseases; I50.22 Chronic systolic (congestive) heart failure; I48.0 Paroxysmal atrial fibrillation
CPT/HCPCS: 36415; 80053; 80061; 84439; 84443; 85025; 87522

== ENCOUNTER 2022-08-30 18:57 | Emergency (ER) | payer MEDICAID ==
[2022-08-30 19:14] LABS: BASOPHILS # (AUTO) 0.1 10^3/uL (0.0-0.1); BASOPHILS % (AUTO) 1 % (0-10); EOSINOPHILS # (AUTO) 0.2 10^3/uL (0.0-0.3); EOSINOPHILS % (AUTO) 1 % (0-10); HEMATOCRIT 46 % (40-54); HEMOGLOBIN 15.2 g/dL (13.3-17.7); LYMPHOCYTES # (AUTO) 1.6 10^3/uL (1.0-4.0); LYMPHOCYTES % (AUTO) 11 % (12-44); MEAN CORPUSCULAR HEMOGLOBIN 27 pg (25-34); MEAN CORPUSCULAR HGB CONC 33 g/dL (32-36); MEAN CORPUSCULAR VOLUME 83 fL (80-99); MEAN PLATELET VOLUME 10.2 fL (9.0-12.2); MONOCYTES # (AUTO) 0.9 10^3/uL (0.0-1.0); MONOCYTES % (AUTO) 6 % (0-12); NEUTROPHILS # (AUTO) 12.2 10^3/uL (1.8-7.8); NEUTROPHILS % (AUTO) 81 % (42-75); PLATELET COUNT 369 10^3/uL (130-400)
--- NOTE | 2022-08-30 19:15 | ED Cardiac General ---
History of Present Illness General Chief Complaint: Respiratory Problems Stated Complaint: SOB Source: patient (DIFFICULT HISTORIAN) History of Present Illness Date Seen by Provider: Aug 30, 2022 Time Seen by Provider: 19:02 Initial Comments PT ARRIVES VIA POV FROM HOME WITH FATHER STATES HE WOKE UP FROM A NAP AT 1600 WITH SHORTNESS OF BREATH AND CHEST PAIN IN CENTER OF HIS CHEST O2 LEVEL AT HOME 97-99%. PT DOES NOT HAVE HOME O2 PT DENIES FEVER OR RECENT ILLNESS OR COUGH NO SWEATS NO DIZZINESS OR SYNCOPE PT HAS HISTORY OF ATRIAL FIBRILLATION WITH V-TACH AND PA HE HAS HAD A CARDIAC CATH, WITH ABLATION AND CLIPPING OF AN APPENDAGE IN HIS HEART. HE HAS A PACEMAKER IN PLACE--TREATMENTS AT HE STATES THAT AFTER ONE OF HIS HEART PROCEDURES HE HAD A COLLAPSED LUNG AND THIS FEELS SIMILAR. NO TREATMENT FOR THAT--STATES HE JUST HAD TO SIT UP FOR NIMA RAL DAYS. PT HAS FAIRLY EXTENSIVE CARDIAC HISTORY WAS IN COMA FOR 3 WEEKS IN MAR 2017, AFTER CARDIAC ARRHYTHMIA 03/31/17 --V-TACH WITH CARDIOPULMONARY ARREST--S/P RESUSCITATION ALSO HAS HISTORY OF ATRIAL FIBRILLATION FOR A FEW YEARS HAS HAD 2 PACEMAKERS AND CARDIAC ABLATION HAS HAD "MINI-MAZE" PROCEDURE FOR ATRIAL FIBRILLATION CLIPPED CARDIAC APPENDAGE HE IS NO LONGER ON BLOOD THINNERS, ONLY TAKES 81 MG ASPIRIN. PCP: [facility], AND ALSO HAS A PRIMARY CARE PHYSICIAN THERE ALSO SEES DR. JEFFREY [facility] FOR CARDIOLOGY Allergies and Home Medications Allergies Coded Allergies: Penicillins (Verified Allergy, Unknown, 09/19/13) Patient Home Medication List Home Medication List Reviewed: Yes Apixaban (Eliquis) 5 Mg Tablet, 5 MG PO BID, (Reported) Entered as Reported by: SANDOVAL WISEMAN on 05/09/18 180 Calcium Carbonate/Mag Carb/FA (Magnebind 400 Rx Tablet) 1 Each Tablet, 1 EACH PO BID, (Reported) Entered as Reported by: SANDOVAL WISEMAN on 05/09/18 181 Metoprolol Tartrate (Metoprolol Tartrate 50 Mg) 50 Mg Tablet, 50 MG PO BID, (Reported) Entered as Reported by: MINI DAVENPORT on 11/13/13 0956 Pantoprazole Sodium (Pantoprazole Sodium) 40 Mg Tablet., (Reported) Entered as Reported [place]: [place] [address] Sacubitril/Valsartan (Entresto 24 mg-26 mg Tablet) 1 Each Tablet, (Reported) Entered as Reported by: SANDOVAL WISEMAN on 05/09/181806 Sertraline HCl (Sertraline HCl) 50 Mg Tablet, (Reported) Entered as Reported by: SANDOVAL WISEMAN on 05/09/181806 Review of Systems Review of Systems Constitutional: no symptoms reported Respiratory: See HPI, Shortness of Air, SOA With Exertion Cardiovascular: See HPI, Chest Pain Gastrointestinal: No Symptoms Reported Genitourinary: No Symptoms Reported Musculoskeletal: no symptoms reported Skin: no symptoms reported Psychiatric/Neurological: No Symptoms Reported Endocrine: No Symptoms Reported Hematologic/Lymphatic: No Symptoms Reported Past Oxikxfr-Csafvs-Jhmgep Hx Patient Social History Tobacco Use?: No Substance use?: No Alcohol Use?: No Immunizations Up To Date Tetanus Booster (TDap): More than 5yrs Past Medical History Surgeries: Yes (ABLATION, MINI MAZE, CLIPPING OF CARDIAC APPENDAGE,PEG TUBE, TRACH) Abdominal, Cardiac, Pacemaker, Tracheostomy Respiratory: Yes (PNEUMOTHORAX POST OP) Cardiac: Yes (V-TACH; CARDIAC ARREST) Atrial Fibrillation, Cardiomyopathy, Heart Attack, Irregular Heartbeat Neurological: Yes (COMA X 3 WEEKS POST CARDIAC ARREST) Reproductive Disorders: No Genitourinary: No Gastrointestinal: Yes Gastroesophageal Reflux, Chronic Constipation Musculoskeletal: No Endocrine: No HEENT: No Cancer: No Psychosocial: No Integumentary: Yes Herpes Blood Disorders: No Adverse Reaction/Blood Tranf: No Family Medical History Family history: Arthritis 19 FATHER (rhumatoid arthrtis) 19 MOTHER Family history: Asthma 19 MOTHER Family history: Hypertension 19 FATHER History of - anemia 19 MOTHER Hypercholesterolemia 19 FATHER Psychotic disorder 19 MOTHER (depression/anxiety) SOCIAL HISTORY: -SMOKING--DENIES -ETOH--DENIES -DRUGS--DENIES PAST SURGICAL HISTORY: -CARDIAC CATHS -CARDIAC ABLATION -CLIPPING OF CARDIAC APPENDAGE -PACEMAKER PLACEMENT. PT HAS FAIRLY EXTENSIVE CARDIAC HISTORY WAS IN COMA FOR 3 WEEKS IN MAR 2017, AFTER CARDIAC ARRHYTHMIA 03/31/17 --V-TACH WITH CARDIOPULMONARY ARREST--S/P RESUSCITATION ALSO HAS HISTORY OF ATRIAL FIBRILLATION FOR A FEW YEARS HAS HAD 2 PACEMAKERS AND CARDIAC ABLATION HAS HAD "MINI-MAZE" PROCEDURE FOR ATRIAL FIBRILLATION CLIPPING OF CARDIAC APPENDAGE Physical Exam Vital Signs Vital Signs - First Documented 08/30/22 19:02 Temp 36.3 Pulse 85 Resp 19 B/P (MAP) 137/101 (113) Pulse Ox 97 O2 Delivery Room Air Capillary Refill : Height, Weight, BMI Height: 5'4.00" Weight: 217lbs. 7.0oz. 98.923579zi; 35.00 BMI Method:Stated General Appearance: No Apparent Distress, WD/WN, Obese, Other (DOES NOT APPEAR DYSPNEIC OR TO BE IN ANY DISCOMFORT OR DISTRESS) Neck: Normal Inspection Respiratory: Chest Non Tender, Normal Breath Sounds, No Accessory Muscle Use, No Respiratory Distress Cardiovascular: Regular Rate, Rhythm, No Edema, No JVD, No Murmur, Normal Peripheral Pulses Gastrointestinal: Non Tender, Soft Extremity: Normal Capillary Refill, Normal Inspection, No Pedal Edema Neurologic/Psychiatric: Alert, Oriented x3, No Motor/Sensory Deficits, Normal Mood/Affect, vessel slagman II-XII Norm as Tested Skin: Normal Color, Warm/Dry Procedures/Interventions Date of ETT Placement: Mar 31, 2017 Time of ETT Placement: 755 Progress/Results/Core Measures Results/Orders Lab Results Laboratory Tests Test 08/30/22 19:12 08/31/22 01:36 Range/Units White Blood Count 15.0 H 4.3-11.0 10^3/uL Red Blood Count 5.55 H 4.30-5.52 10^6/uL Hemoglobin 15.2 13.3-17.7 g/dL Hematocrit 46 40-54 % Mean Corpuscular Volume 83 80-99 fL Mean Corpuscular Hemoglobin 27 25-34 pg Mean Corpuscular Hemoglobin Concent 33 32-36 g/dL Red Cell Distribution Width 14.1 10.0-14.5 % Platelet Count 369 130-400 10^3/uL Mean Platelet Volume 10.2 9.0-12.2 fL Immature Granulocyte % (Auto) 1 % Neutrophils (%) (Auto) 81 H 42-75 % Lymphocytes (%) (Auto) 11 L 12-44 % Monocytes (%) (Auto) 6 0-12 % Eosinophils (%) (Auto) 1 0-10 % Basophils (%) (Auto) 1 0-10 % Neutrophils # (Auto) 12.2 H 1.8-7.8 10^3/uL Lymphocytes # (Auto) 1.6 1.0-4.0 10^3/uL Monocytes # (Auto) 0.9 0.0-1.0 10^3/uL Eosinophils # (Auto) 0.2 0.0-0.3 10^3/uL Basophils # (Auto) 0.1 0.0-0.1 10^3/uL Immature Granulocyte # (Auto) 0.1 0.0-0.1 10^3/uL Neutrophils % (Manual) 83 % Lymphocytes % (Manual) 12 % Monocytes % (Manual) 4 % Eosinophils % (Manual) 1 % Prothrombin Time 13.1 12.2-14.7 SEC INR Comment 1.0 0.8-1.4 Activated Partial Thromboplast Time 32 24-35 SEC D-Dimer 0.49 0.00-0.49 UG/ML Sodium Level 138 135-145 MMOL/L Potassium Level 4.3 3.6-5.0 MMOL/L Chloride Level 101 98-107 MMOL/L Carbon Dioxide Level 26 21-32 MMOL/L Anion Gap 11 5-14 MMOL/L Blood Urea Nitrogen 12 7-18 MG/DL Creatinine 1.14 0.60-1.30 MG/DL Estimat Glomerular Filtration Rate 85 BUN/Creatinine Ratio 11 Glucose Level 128 H 70-105 MG/DL Calcium Level 9.6 8.5-10.1 MG/DL Corrected Calcium 9.3 8.5-10.1 MG/DL Magnesium Level 1.8 1.6-2.4 MG/DL Total Bilirubin 0.4 0.1-1.0 MG/DL Aspartate Amino Transf (AST/SGOT) 22 5-34 U/L Alanine Aminotransferase (ALT/SGPT) 28 0-55 U/L Alkaline Phosphatase 41 40-136 U/L Total Creatine Kinase 70 30-200 U/L Creatine Kinase MB 1.1 <6.6 NG/ML Myoglobin 18.0 10.0-92.0 NG/ML Troponin I < 0.028 < 0.028 <0.028 NG/ML B-Type Natriuretic Peptide 13.4 <100.0 PG/ML Total Protein 7.8 6.4-8.2 GM/DL Albumin 4.4 3.2-4.5 GM/DL My Orders Orders - MONY ANDRADE DO Ed Iv/Invasive Line Start (08/30/22 19:08) Ekg Tracing (08/30/22 19:08) O2 (08/30/22 19:08) Monitor-Rhythm Ecg Trace Only (08/30/22 19:08) Bnp Sebastian (08/30/22 19:08) Cbc With Automated Diff (08/30/22 19:08) Comprehensive Metabolic Panel (08/30/22 19:08) Creatine Kinase (08/30/22 19:08) Creatine Kinase Mb (08/30/22 19:08) Fibrin Degradation Products (08/30/22:08) Magnesium (08/30/22 19:08) Protime With Inr (08/30/22:08) Partial Thromboplastin Time (08/30/22:08) Myoglobin Serum (08/30/22 19:08) Troponin I Sebastian (08/30/22 19:08) Chest 1 View, Ap/Pa Only (08/30/22 19:08) Manual Differential (08/30/22 19:12) Aspirin Chewable Tablet (Baby Aspirin Ch (08/30/22 19:30) Nitroglycerin 0.4 Mg Btl 25's (Nitrostat (08/30/22 19:30) Ct Angio Chest W (R/O Pe) (08/30/22 19:40) Iohexol Injection (Omnipaque 350 Mg/Ml 1 (08/30/22 20:00) Ns (Ivpb) (Sodium Chloride 0.9% Ivpb Bag (08/30/22 20:00) Ed Iv/Invasive Line Start (08/30/22 22:56) Ns Iv 1000 Ml (Sodium Chloride 0.9%) (08/30/22 23:00) Ekg Tracing (08/31/22 01:18) Troponin I Sebastian (08/31/22 01:18) Fentanyl Inj (Sublimaze Injection) (08/31/22 01:18) Ed Iv/Invasive Line Start (08/31/22 01:18) Ns Iv 1000 Ml (Sodium Chloride 0.9%) (08/31/22 01:30) Medications Given in ED Vital Signs/I&O 08/30/22 08/31/22 19:02 08:43 Temp 36.3 Pulse 85 60 Resp 19 18 B/P (MAP) 137/101 (113) 107/73 Pulse Ox 97 95 O2 Delivery Room Air Progress Progress Note : Progress Note CHEST PAIN PROTOCOL INITIATED GIVEN: -ASPIRIN -NTG HELD DUE TO BLOOD PRESSURE -FENTANYL -IV FLUIDS VITALS ON ARRIVAL: BP 140/103, HR 89, RR 17, O2 SAT 97% ON ROOM AIR. BP TRENDED DOWN INTO LOW 100'S AND UPPER 90'S SYSTOLIC. IV FLUIDS ORDERED. HR REMAINS IN 60'S-70'S. CXR IS NORMAL, NO PNEMOTHORAX LABS INCLUDING CBC, CMP, PT/PTT, TROPONIN, BNP ORDERED WBC IS 15,000, ALL OTHER LABS ARE UNREMARKABLE EKG IS NORMAL. STATES HE FEELS VERY SHORT OF BREATH AFTER WALKING TO BATHROOM, BUT DOES NOT APPEAR DYSPNEIC AND O2 SAT IS 98% AND RR 15, HR IN 70'S PT WANTS TO STAND OR SIT IN A REGULAR CHAIR NEXT TO ER CART--STATES IT IS UNCOMFORTABLE TO LAY DOWN OR EVEN RECLINE ON ER CART DELAY IN OBTAINING CT RESULTS. CT SCAN SHOWS PERICARDIAL EFFUSION. DISCUSSED TEST RESULTS WITH PT AND FATHER, NEED FOR TRANSFER AND PT IS AGREEABLE TO PLAN REVIEWED PRIOR RECORDS, INCLUDING ER VISITS, ADMITS/H&P'S/CONSULTS/DISCHARGE SUMMARIES, TESTS/PROCEDURES 0600-CARE TURNED OVER TO DR. SAMUEL, TRANSPORTATION TO [place] IS STILL PENDING. VITALS STABLE AND PT IS COMFORTABLE AT THIS TIME Initial ECG Impression Date: Aug 30, 2022 Initial ECG Impression Time: 19:23 Initial ECG Rate: 80 Initial ECG Rhythm: Normal Sinus Initial ECG Impression: Normal Initial ECG Comparisson: Unchanged Comment INTERPRETED BY ME EKG : EKG Time: 01:32 Rate: 66 Rhythm: Normal Sinus Intervals: Normal ECG Comparisson: Unchanged ECG Impression: Normal Comment INTERPRETED BY ME Diagnostic Imaging Comments CXR-PER RADIOLOGIST REPORT AT 1923 FINDINGS: Lungs/pleura: Stable minimal atelectasis or scarring in the lingula region and left lung base. Otherwise, lungs are clear. There is no pneumothorax. There is no pleural effusion. Mediastinum: Unremarkable. Pulmonary vasculature: Unremarkable. Heart: Heart size is within normal limits. Again seen postop changes to the chest. Cardiac pacemaker/AICD is seen in stable position and appears intact. Bones/extrathoracic soft tissue: Unremarkable. IMPRESSION: Stable chest x-ray exam with no interval radiographic evidence of acute cardiopulmonary process. CT CHEST ANGIOGRAM--PER RADIOLOGIST REPORT AT 2133 -INTERVAL PROGRESSION OF SMALL TO MODERATE SIZED PERICARDIAL EFFUSION 1.5 CM IN THICKNESS ( PRIOR MEASUREMENT 6 MM) -NOTED REFLUX OF CONTRAST INTO IVC. UNKNOWN IF THERE IS COMPONENT OF HEART DYSFUNCTION DUE TO PERICARDIAL FLUID -NO PULMONARY EMBOLISM -NO THORACIC ANEURYSM OR DISSECTION Reviewed: Reviewed by Me Departure Communication (Admissions) 2141--CALLED [facility]. THEY WILL CONTACT CARDIOLOGY AND CALL BACK 2217--[facility] CALLED BACK, THEY HAVE DISCUSSED WITH CARDIOLOGY --THEY ARE AT CAPACITY AND CANNOT ACCEPT THE PATIENT, RECOMMEND TRANSFER TO A DIFFERENT FACILITY. 2221--SPOKE WITH DR. MURPHY, ELECTRONICS TEACHER, HE ADVISES TO TRANSFER TO [facility] OR [facility] 2227--MULTIPLE ATTEMPTS TO CONTACT [facility], AND TRIED MULTIPLE DIFFERENT PHONE NUMBERS WITHOUT SUCCESS--APPEARS THEY ARE CURRENTLY HAVING AN ISSUE WITH THEIR PHONE SERVICE. 2230--CALLED [facility], THEY WILL CONTACT ELECTRONICS TEACHER AND / OR HOSPITALIST AND CALL BACK 232--SPOKE WITH DR. FUENTES, HOSPITALIST, ACCEPTS PT FOR ADMIT. 0050--ALL LOCAL AND AREA / REGIONAL GROUND TRANSPORT SERVICES HAVE BEEN CONTACTED AND NONE ARE AVAILABLE TO TRANSPORT PT ALL AREA AIR TRANSPORT SERVICES HAVE ALSO BEEN CONTACTED AND NONE ARE CURRENTLY AVAILABLE FOR TRANSPORT DUE TO WEATHER. [facility] WILL DO ANOTHER WEATHER CHECK AT 0300 AND CALL US WITH INFORMATION. 0250--UPDATE ON TRANSPORTATION--[facility] HAS DONE ANOTHER WEATHER CHECK AND STILL UNABLE TO TRANSPORT DUE TO WEATHER. WILL CONTACT LOCAL AND AREA / REGIONAL GROUND SERVICE TRANSPORT SERVICES AGAIN. 0400--CALLED [facility] AND UPDATED THEM ON TRANSPORTATION ISSUES. Impression Primary Impression: Chest pain Additional Impressions: Pericardial effusion Dyspnea Disposition: 02 XFER SHT-TRM HOSP Condition: Stable Transfer Transfer Reason: Exceeds level of care (NEED FOR CARDIOVASCULAR SERVICES UNAVAILABLE HERE) Transfer Facility: [place], [place] Method of Transfer: EMS Departure-Patient Inst. Referrals: [facility] (PCP/Family) Primary Care Physician MONY ANDRADE DO Aug 30, 2022 19:15
--- NOTE | 2022-08-30 19:19 | Diagnostic Imaging Report ---
CLINICAL INDICATIONS: Patient with chest pain. EXAM: Portable chest x-ray upright view. COMPARISON: Chest x-ray dated 05/20/2020. FINDINGS: Lungs/pleura: Stable minimal atelectasis or scarring in the lingula region and left lung base. Otherwise, lungs are clear. There is no pneumothorax. There is no pleural effusion. Mediastinum: Unremarkable. Pulmonary vasculature: Unremarkable. Heart: Heart size is within normal limits. Again seen postop changes to the chest. Cardiac pacemaker/AICD is seen in stable position and appears intact. Bones/extrathoracic soft tissue: Unremarkable. IMPRESSION: Stable chest x-ray exam with no interval radiographic evidence of acute cardiopulmonary process. Dictated by: Dictated on workstation # [id number]
[2022-08-30] MEDS ORDERED: ASPIRIN 81 MG CHEW (CHILDREN'S ASA) PO ONE (19:30)
[2022-08-30] MEDS ORDERED: NITROGLYCERIN 0.4 MG SL TABS BTL 25'S SL PRN (19:30)
[2022-08-30 19:31] LABS: ALBUMIN 4.4 GM/DL (3.2-4.5); CHLORIDE 101 MMOL/L (98-107); POTASSIUM 4.3 MMOL/L (3.6-5.0); PROTHROMBIN TIME PATIENT 13.1 SEC (12.2-14.7); SODIUM 138 MMOL/L (135-145)
[2022-08-30 19:32] LABS: CALCIUM 9.6 MG/DL (8.5-10.1)
[2022-08-30 19:34] LABS: FIBRIN DEGRADATION PRODUCTS 0.49 UG/ML (0.00-0.49); GLUCOSE 128 MG/DL (70-105); TOTAL PROTEIN 7.8 GM/DL (6.4-8.2)
[2022-08-30 19:35] LABS: CARBON DIOXIDE 26 MMOL/L (21-32)
[2022-08-30 19:36] LABS: BILIRUBIN,TOTAL 0.4 MG/DL (0.1-1.0)
[2022-08-30 19:37] LABS: ALKALINE PHOSPHATASE 41 U/L (40-136); CREATININE SERUM 1.14 MG/DL (0.60-1.30); GFR ESTIMATED 85
[2022-08-30 19:38] LABS: BUN/CREATININE RATIO 11
[2022-08-30 19:40] LABS: ALANINE AMINOTRANSFERASE 28 U/L (0-55); MAGNESIUM 1.8 MG/DL (1.6-2.4)
[2022-08-30 19:41] LABS: CREATINE KINASE 70 U/L (30-200); EOSINOPHILS % (MANUAL) 1 %; LYMPHOCYTES % (MANUAL) 12 %; MONOCYTES % (MANUAL) 4 %; NEUTROPHILS % (MANUAL) 83 %
[2022-08-30 19:47] LABS: CREATINE KINASE MB 1.1 NG/ML (<6.6)
[2022-08-30] MEDS ORDERED: NS 100 ML (IVPB) BAG IV ONE (20:00)
[2022-08-30] MEDS ORDERED: IOHEXOL 350 MG/ML 100 ML (OMNIPAQUE 350) VIAL IV ONE (20:00)
[2022-08-30] MEDS ORDERED: NS IV 1000 ML 1,000 ML IV SCH (23:00)
--- NOTE | 2022-08-30 23:40 | Diagnostic Imaging Report ---
CLINICAL INDICATION: Patient with chest pain and dyspnea. Exam: CT angiogram of the chest performed with 90 cc Omnipaque 350 IV contrast. Coronal and oblique MIP images of the vasculature were created to better evaluate anatomy. Auto Exposure Controls were utilized during the CT exam to meet ALARA standards for radiation dose reduction. Comparison: CT angiogram of the chest, abdomen, and pelvis dated 05/09/2018.. Findings: There is no evidence of pulmonary embolism. There is no thoracic aortic dissection or aneurysm. There is mild bibasilar atelectasis. Otherwise, lungs are clear. There is no pleural effusion pneumothorax. There is no mediastinal or axillary lymphadenopathy. Small left hilar calcified granuloma is seen. There is interval development of a [id number] sized pericardial effusion which is roughly 1.5 cm in thickness compared to prior study remeasured at 6 mm. There is also note of reflux of contrast into the IVC. There is no significant enlargement of the right atrium. Cardiac pacemaker seen overlying the chest which is also noted on prior study. Otherwise, the mediastinal structures and heart shows no significant abnormality. The visualized portions of the upper abdominal structures are unremarkable. There are small degenerative spurs involving the thoracic spine. Impression: 1: There is interval progression of a now small to moderate sized pericardial effusion. There is note of reflux of contrast into the IVC. Unknown if there is component of heart dysfunction due to the pericardial fluid. 2: There is no evidence of pulmonary embolism. There is no thoracic aortic aneurysm or dissection. Dictated by: Dictated on workstation # [id number]
[2022-08-31] MEDS ORDERED: fentaNYL INJ 100 MCG/2 ML AMP IVP STA (01:18)
[2022-08-31] MEDS ORDERED: NS IV 1000 ML 1,000 ML IV SCH (01:30)
[2022-08-31 08:43] VITALS: BP 107/73
== END 2022-08-31 08:43 | disposition short-term general hospital (02) ==
LOC: EDUNIT# 18:57 → ER 18:58
DX: I31.39 Other pericardial effusion (noninflammatory) (principal); E66.9 Obesity, unspecified; Z95.0 Presence of cardiac pacemaker; Z86.79 Personal history of other diseases of the circulatory system; Z68.35 Body mass index [BMI] 35.0-35.9, adult
CPT/HCPCS: 36415; 71045; 71275; 80053; 82550; 82553; 83735; 83874; 83880; 84484; 85007; 85027; 85379; 85610; 85730; 93005; 93041

== ENCOUNTER → 2022-09-25 | Outpatient (CLI) | payer MEDICAID ==
[2022-09-25 07:28] LABS: BASOPHILS # (AUTO) 0.1 10^3/uL (0.0-0.1); BASOPHILS % (AUTO) 1 % (0-10); EOSINOPHILS # (AUTO) 0.3 10^3/uL (0.0-0.3); EOSINOPHILS % (AUTO) 3 % (0-10); HEMATOCRIT 46 % (40-54); HEMOGLOBIN 15.1 g/dL (13.3-17.7); LYMPHOCYTES # (AUTO) 2.4 10^3/uL (1.0-4.0); LYMPHOCYTES % (AUTO) 27 % (12-44); MEAN CORPUSCULAR HEMOGLOBIN 27 pg (25-34); MEAN CORPUSCULAR HGB CONC 33 g/dL (32-36); MEAN CORPUSCULAR VOLUME 83 fL (80-99); MEAN PLATELET VOLUME 10.6 fL (9.0-12.2); MONOCYTES # (AUTO) 0.6 10^3/uL (0.0-1.0); MONOCYTES % (AUTO) 7 % (0-12); NEUTROPHILS # (AUTO) 5.5 10^3/uL (1.8-7.8); NEUTROPHILS % (AUTO) 62 % (42-75); PLATELET COUNT 258 10^3/uL (130-400)
[2022-09-25 07:43] LABS: POTASSIUM 3.8 MMOL/L (3.6-5.0)
[2022-09-25 07:45] LABS: CALCIUM 9.2 MG/DL (8.5-10.1)
[2022-09-25 07:46] LABS: TOTAL PROTEIN 7.4 GM/DL (6.4-8.2)
[2022-09-25 07:48] LABS: BILIRUBIN,TOTAL 0.9 MG/DL (0.1-1.0)
[2022-09-25 07:50] LABS: CREATININE SERUM 0.81 MG/DL (0.60-1.30)
[2022-09-25 08:13] LABS: FREE T4 (FREE THYROXINE) 0.95 NG/DL (0.70-1.48)
== END ==
LOC: LAB 07:10
PROVIDERS: ATTEND Internal Medicine
DX: Z00.00 Encounter for general adult medical examination without abnormal findings (principal); I48.0 Paroxysmal atrial fibrillation; E66.9 Obesity, unspecified
CPT/HCPCS: 36415; 80053; 80061; 82306; 84439; 84443; 85025

== ENCOUNTER → 2022-12-13 | Outpatient (CLI) | payer MEDICAID | LOC: CANPRECLI → CARD 08:29 | PROVIDERS: ATTEND Internal Medicine Cardiovascular Disease | DX: I31.39 Other pericardial effusion (noninflammatory) (principal); I48.91 Unspecified atrial fibrillation; I34.0 Nonrheumatic mitral (valve) insufficiency | CPT/HCPCS: 93306 ==